=== PATIENT | female | born 1940 | race Caucasian/White ===

== ENCOUNTER 2016-08-26 13:06 | Emergency (ER) | payer MEDICARE, MEDICAID, OTHER ==
[~2016-08-26] VITALS: Ht 157.5 cm; Wt 50.0 kg
[~2016-08-26 13:06] MED LIST: APIX2.5T PO; ARIC5TAB PO; ATEN25TA PO; HUMA100I3 SQ; LANTINJ SQ; MECL25 PO; NITR0.4S SL; NYST100084 TOPICAL; PLAV75TA29 PO; ROSU40 PO; test strips
[2016-08-26 13:22] VITALS: BP 131/60; PULSE 68; RESP 14; TEMP 97.6; O2SAT 96
--- NOTE | 2016-08-26 14:11 | PD ---
HPI Chief Complaint: Fall Time Seen by Provider: 14:00 Travel History International Travel<30 days: No Contact w/Intl Traveler<30days: No Traveled to known affect area: No History of Present Illness HPI Patient is a 76-year-old female who presents emergency department for evaluation of right elbow and knee pain. Patient sustained a mechanical fall prior to arrival while walking in this hospital. That she is able to bear weight, she reports her pain as a 6 out of 10 and describes it as sore. She denies any head injury or loss of consciousness. Fall was witnessed by hospital staff. PFSH Past Medical History Hx Anticoagulant Therapy: Yes Arthritis: Yes Asthma: No Atrial Fibrillation: Yes Autoimmune Disease: No Blood Disorders: No Anxiety: No Depression: No Heart Rhythm Problems: No Cancer: No Cardiovascular Problems: Yes ([place], pacemaker ) High Cholesterol: Yes Chemotherapy: No Chest Pain: No Congestive Heart Failure: Yes COPD: Yes Cerebrovascular Accident: No Diabetes: Yes (Insulin ) Diminished Hearing: No Endocrine: Yes Gastrointestinal Disorders: No GERD: No Glaucoma: No Genitourinary: No Headaches: Yes Hepatitis: No Hiatal Hernia: No Hypertension: Yes Immune Disorder: No Implanted Vascular Access Dvce: Yes Kidney Stones: No Musculoskeletal: Yes (PAD) Neurologic: No Psychiatric: No Reproductive: No Respiratory: Yes (COPD) Integumentary: No Immunizations Current: Yes Migraines: Yes Myocardial Infarction: Yes Radiation Therapy: No Renal Failure: No Seizures: No Sickle Cell Disease: No Sleep Apnea: No Thyroid Disease: No Ulcer: No Menopausal: Yes : 5 Para: 5 Ovarian Cysts: Yes Tubal Ligation: Yes Past Surgical History Abdominal Surgery: No AICD: Yes (MEDTRONIC IMPLANTED DEVICE) Appendectomy: No Arteriovenous Shunt: No Body Medical Devices: AICD/PACER Cardiac Surgery: Yes (TRIPLE BYPASS 1998) Cholecystectomy: No Coronary Artery Bypass Graft: Yes (X 4 IN 1998) Ear Surgery: No Endocrine Surgery: No Eye Surgery: Yes (BILATERAL CATERACTS) Genitourinary Surgery: No Gynecologic Surgery: Yes (HYSTERECTOMY) Hysterectomy: Yes Insulin Pump: No Joint Replacement: No Neurologic Surgery: No Oral Surgery: Yes (TEETH EXTRACTIONS) Pacemaker: Yes (MEDTRONIC, PACER/ DEFIB) Thoracic Surgery: No Other Surgery: Yes Social History Alcohol Use: No Tobacco Use: No (QUIT 1998) Substance Use: No Allergies-Medications (Allergen,Severity, Reaction): Coded Allergies: Cortisone (Verified Allergy, Severe, Rash, 08/26/16) Cortisone cream - rash on area that is apply Penicillin (Verified Allergy, Severe, Anaphylaxis, 08/26/16) Sulfa (Verified Allergy, Severe, Hives, 08/26/16) Hives on joints Cephalosporins (Verified Allergy, Unknown, 08/26/16) Codeine (Verified Allergy, Unknown, 08/26/16) Corticosteroids (Verified Allergy, Unknown, 08/26/16) Tizanidine (Verified Adverse Reaction, Severe, Dizziness, 08/26/16) Tetracyclines (Verified Adverse Reaction, Mild, 08/26/16) vomiting *MDRO Multi-Drug Resistant Organism (Verified Adverse Reaction, Unknown, ) MRSA (leg wound) 09/2012 and (finger wound) 09/2015 E-coli ESBL (urine) - 08/2013 Uncoded Allergies: BETA LACTAMS (Allergy, Unknown, ., 09/26/15) UNK DARUNAVIR (Allergy, Unknown, ., 09/26/15) UNK OPIATES (Allergy, Unknown, ., 09/26/15) UNK AMPREVAVIR DERIVATIVES (Adverse Reaction, Unknown, ., 09/26/15) UNK Reported Meds & Prescriptions Reported Meds & Active Scripts Active Nystatin Topical 100,000 unit/gm Oint 1 Applic TOPICAL Q12HR Lantus Solostar Pen Inj (Insulin Glargine) 300 Unit/3 Ml Pen 58 Units SQ HS Meclizine Hcl25 M4 25 Mg Tab 50 Mg PO Q12HR [test strips] One Touch Ultra Blue Test 4x/day Humalog Gue016 Mg/Ml 100 Units/Ml Inj 42 Units SQ TIDAC 32U if glucose 125-325 42U if glucose >325 Reported Plavix (Clopidogrel Bisulfate) 75 Mg Tab 75 Mg PO DAILY Crestor (Rosuvastatin Calcium) 40 Mg Tab 40 Mg PO DAILY Eliquis (Apixaban) 2.5 Mg Tab 2.5 Mg PO BID Nitrostat SL (Nitroglycerin) 0.4 Mg Subl 0.4 Mg SL DIRECTED PRN ONE TABLET UNDER THE TONGUE NEEDED FOR CHEST PAIN, MAY REPEAT EVERY FIVE MINUTES FOR A TOTAL OF 3 DOSES OR CALL 911 IF NO RELIEF Aricept (Donepezil) 5 Mg Tab 5 Mg PO HS Atenolol 25 Mg Tab 25 Mg PO DAILY Review of Systems Except as stated in HPI: all other systems reviewed are Neg Musculoskeletal: Positive: Myalgias, Pain Skin: Positive Other (abrasion to right elbow) Physical Exam Narrative GENERAL: In, well-developed, alert elderly female. Resting comfortably in no acute distress. SKIN: Warm and dry. Skin avulsion to right elbow HEAD: Atraumatic. Normocephalic. EYES: Pupils equal and round. No scleral icterus. No injection or drainage. ENT: No nasal bleeding or discharge. Mucous membranes pink and moist. NECK: Trachea midline. No JVD. CARDIOVASCULAR: Regular rate and rhythm. No murmur appreciated. RESPIRATORY: No accessory muscle use. Clear to auscultation. Breath sounds equal bilaterally. GASTROINTESTINAL: Abdomen soft, non-tender, nondistended. Hepatic and splenic margins not palpable. MUSCULOSKELETAL: No obvious deformities. No clubbing. No cyanosis. No edema. 5/5 muscle strength in bilateral upper and lower extremities. No cervical, thoracic, or lumbar spinal tenderness. NEUROLOGICAL: Awake and alert. No obvious cranial nerve deficits. Motor grossly within normal limits. Normal speech. PSYCHIATRIC: Appropriate mood and affect; insight and judgment normal. Data Data Last Documented VS Vital Signs Date Time Temp Pulse Resp B/P Pulse Ox O2 Delivery O2 Flow Rate FiO2 08/26/16 13:22 97.6 68 14 131/60 96 Room Air Orders Elbow, Limited (Ap&Lat) (08/26/16 ) Knee, Complete (4vws) (08/26/16 ) Acetaminophen (Tylenol) (08/26/16 14:15) [facility] Medical Decision Making Medical Screen Exam Complete: Yes Emergency Medical Condition: Yes Interpretation(s) Vital Signs Date Time Temp Pulse Resp B/P Pulse Ox O2 Delivery O2 Flow Rate FiO2 08/26/16 13:22 97.6 68 14 131/60 96 Room Air Differential Diagnosis Contusion versus fracture versus sprain versus strain versus abrasion versus avulsion Narrative Course Patient is a 76-year-old female who presented to for evaluation after a mechanical fall that occurred just prior to arrival. Patient presented complaining of right elbow and right knee pain. She denies any head injury or loss of consciousness. Patient is neurologically intact. Fall was witnessed by hospital staff. Imaging was ordered to rule out acute fracture or dislocation. Imaging of the right elbow and right knee are negative for acute fractures or new abnormalities. Patient was given acetaminophen emergency department for pain. Wound care was provided. Patient's vital signs are stable. Patient is encouraged to rest, ice, elevate extremity. She is encouraged to maintain range of motion exercises. She is encouraged to follow- up with her primary doctor or return to emergency department for any new or worsening symptoms. Patient verbalized understanding of these instructions. Patient is stable for discharge. Diagnosis Primary Impression: Fall Qualified Code: W19.XXXA - Fall, initial encounter Additional Impressions: Elbow pain Qualified Code: M25.521 - Right elbow pain Knee pain Qualified Code: M25.561 - Acute pain of right knee Skin avulsion Referrals: Primary Care Physician Patient Instructions: Fall Prevention for Older Adults (ED), General Instructions, Knee Pain (ED) Additional Instructions: Rest, ice, elevate extremity as needed Take over the counter acetaminophen as needed and as directed for pain Follow-up with your primary doctor Return to emergency department for any new or worsening symptoms Med/Other Pt SpecificInfo: No Change to Meds Disposition: 01 DISCHARGE HOME Condition: Stable Lizbeth Garrido Aug 26, 2016 14:11
[2016-08-26] MEDS ORDERED: ACETAMINOPHEN 325 MG TAB PO ONE (14:15)
--- NOTE | 2016-08-26 15:21 | RADRPT ---
EXAM DATE/TIME: 08/26/2016 14:22 [facility] COMPARISON: KNEE RIGHT COMPLETE (4VWS), February 07, 2016, 13:51. INDICATIONS : Patient fell while following son in stretcher being transported. MEDICAL HISTORY : Chronic obstructive pulmonary disease. Emphysema. Diabetes mellitus type II. SURGICAL HISTORY : Pacemaker. CABG. ENCOUNTER: Initial ACUITY: 1 day PAIN SCORE: 6/10 LOCATION: Right Elbow FINDINGS: 2 views of the right elbow demonstrate degenerative changes with evidence of old avulsion injury of t he medial upper condyle. No acute fracture seen. No joint effusion is evident. CONCLUSION: 1. Degenerative changes and old avulsion. No acute abnormality. Joseph Obando MD on August 26, 2016 at 15:18 Board Certified Radiologist. This report was verified electronically.
--- NOTE | 2016-08-26 15:22 | RADRPT ---
EXAM DATE/TIME: 08/26/2016 14:27 [facility] COMPARISON: ELBOW RIGHT LIMITED (AP & LAT), August 26, 2016, 14:22. INDICATIONS : Patient fell while following son in stretcher being transported. MEDICAL HISTORY : Chronic obstructive pulmonary disease. Emphysema. Diabetes mellitus type II. SURGICAL HISTORY : CABG. Pacemaker. ENCOUNTER: Initial ACUITY: 1 day PAIN SCORE: 6/10 LOCATION: Right Knee. FINDINGS: The exam demonstrates a plate and multiple screws across the tibial plateau. No acute fracture is see n. There atherosclerotic changes within the distal superficial femoral and popliteal arteries. CONCLUSION: 1. Post surgical changes. No acute fracture. Joseph Obando MD on August 26, 2016 at 15:20 Board Certified Radiologist. This report was verified electronically.
[2016-09-18] MEDS ORDERED: MECL-62 PO (09:06)
[2016-09-19] MEDS ORDERED: MECL-62 PO (07:12)
[2016-10-01] MEDS ORDERED: ARIC5TAB PO (08:20)
[2016-11-12] MEDS ORDERED: HUMA100I3 SQ (08:55)
== END 2016-08-26 15:53 | disposition home or self-care (01) ==
LOC: NEPB 13:06
DX: M25.561 Pain in right knee (principal); M25.521 Pain in right elbow; E11.9 Type 2 diabetes mellitus without complications; Z79.4 Long term (current) use of insulin; Z79.01 Long term (current) use of anticoagulants; E78.00 Pure hypercholesterolemia, unspecified; W18.39XA Other fall on same level, initial encounter; Y93.01 Activity, walking, marching and hiking; Y92.238 Other place in hospital as the place of occurrence of the external cause; Y99.9 Unspecified external cause status
CPT/HCPCS: 73070; 73564; 99284

== ENCOUNTER 2016-11-19 16:36 | Inpatient (IN) | payer MEDICARE, MEDICAID ==
[~2016-11-19] VITALS: Ht 152.4 cm; Wt 61.0 kg
[2016-11-19] VITALS (9 sets, daily range): BP systolic 116–158; BP diastolic 54–88; PULSE 93–102; RESP 22–40; TEMP 99.3–101.5; O2SAT 88–100
[~2016-11-19 16:36] MED LIST changes: +MECL-62 PO; -MECL25 PO
[2016-11-19] MEDS ORDERED: SODIUM CHLORIDE 0.9% FLUSH 10 ML FLUSH IVF PRN (17:00)
--- NOTE | 2016-11-19 17:06 | PD ---
HPI . Found unresponsive Chief Complaint: Altered Mental Status Time Seen by Provider: 17:02 Travel History International Travel<30 days: No (unable to obtain) Contact w/Intl Traveler<30days: No (unable to obtain) Traveled to known affect area: No (unable to obtain) History of Present Illness HPI Patient is brought to us by EVAC being found unresponsive in her apartment. She was last seen normal yesterday. EMS reports a fingerstick blood sugar too high to register. No further history is available from this patient at this time due to her mental status. [facility] Past Medical History Medical History: Unable to Obtain Hx Anticoagulant Therapy: Yes Arthritis: Yes Asthma: No Atrial Fibrillation: Yes Autoimmune Disease: No Blood Disorders: No Anxiety: No Depression: No Heart Rhythm Problems: No Cancer: No Cardiovascular Problems: Yes ([place], pacemaker ) High Cholesterol: Yes Chemotherapy: No Chest Pain: No Congestive Heart Failure: Yes COPD: Yes Cerebrovascular Accident: No Diabetes: Yes (Insulin ) Patient Takes Glucophage: No Diminished Hearing: No Endocrine: Yes Gastrointestinal Disorders: No GERD: No Glaucoma: No Genitourinary: No Headaches: Yes Hepatitis: No Hiatal Hernia: No Hypertension: Yes Immune Disorder: No Implanted Vascular Access Dvce: Yes Kidney Stones: No Musculoskeletal: Yes (PAD) Neurologic: No Psychiatric: No Reproductive: No Respiratory: Yes (COPD) Integumentary: No Immunizations Current: Yes Migraines: Yes Myocardial Infarction: Yes Radiation Therapy: No Renal Failure: No Seizures: No Sickle Cell Disease: No Sleep Apnea: No Thyroid Disease: No Ulcer: No Menopausal: Yes : 5 Para: 5 Ovarian Cysts: Yes Tubal Ligation: Yes Past Surgical History Surgical History: Unable to Obtain Abdominal Surgery: No AICD: Yes (MEDTRONIC IMPLANTED DEVICE) Appendectomy: No Arteriovenous Shunt: No Body Medical Devices: AICD/PACER Cardiac Surgery: Yes (TRIPLE BYPASS 1998) Cholecystectomy: No Coronary Artery Bypass Graft: Yes (X 4 IN 1998) Ear Surgery: No Endocrine Surgery: No Eye Surgery: Yes (BILATERAL CATERACTS) Genitourinary Surgery: No Gynecologic Surgery: Yes (HYSTERECTOMY) Hysterectomy: Yes Insulin Pump: No Joint Replacement: No Neurologic Surgery: No Oral Surgery: Yes (TEETH EXTRACTIONS) Pacemaker: Yes (MEDTRONIC, PACER/ DEFIB) Thoracic Surgery: No Other Surgery: Yes Social History Alcohol Use: No Tobacco Use: No (QUIT 1998) Substance Use: No Allergies-Medications (Allergen,Severity, Reaction): Coded Allergies: Cortisone (Verified Allergy, Severe, Rash, 11/12/16) Cortisone cream - rash on area that is apply Penicillin (Verified Allergy, Severe, Anaphylaxis, 11/12/16) Sulfa (Verified Allergy, Severe, Hives, 11/12/16) Hives on joints Cephalosporins (Verified Allergy, Unknown, 11/12/16) Codeine (Verified Allergy, Unknown, 11/12/16) Corticosteroids (Verified Allergy, Unknown, 11/12/16) Tizanidine (Verified Adverse Reaction, Severe, Dizziness, 11/12/16) Tetracyclines (Verified Adverse Reaction, Mild, 11/12/16) vomiting *MDRO Multi-Drug Resistant Organism (Verified Adverse Reaction, Unknown, ) MRSA (leg wound) 09/2012 and (finger wound) 09/2015 E-coli ESBL (urine) - 08/2013 Uncoded Allergies: BETA LACTAMS (Allergy, Unknown, ., 09/26/15) UNK DARUNAVIR (Allergy, Unknown, ., 09/26/15) UNK OPIATES (Allergy, Unknown, ., 09/26/15) UNK AMPREVAVIR DERIVATIVES (Adverse Reaction, Unknown, ., 09/26/15) UNK Reported Meds & Prescriptions Reported Meds & Active Scripts Active Aricept (Donepezil) 5 Mg Tab 5 Mg PO HS Meclizine (Meclizine HCl) 25 Mg Tab 2 Tab PO Q12HR Nystatin Topical 100,000 unit/gm Oint 1 Applic TOPICAL Q12HR Lantus Solostar Pen Inj (Insulin Glargine) 300 Unit/3 Ml Pen 58 Units SQ HS [test strips] One Touch Ultra Blue Test 4x/day Reported Humalog Kwikpen Pen Inj (Insulin Lispro (Human) Inj) 300 Unit/3 Ml Pen 1 Units SQ TIDAC 32U if glucose 125-325 42U if glucose >325 Plavix (Clopidogrel Bisulfate) 75 Mg Tab 75 Mg PO DAILY Crestor (Rosuvastatin Calcium) 40 Mg Tab 40 Mg PO DAILY Eliquis (Apixaban) 2.5 Mg Tab 2.5 Mg PO BID Nitrostat SL (Nitroglycerin) 0.4 Mg Subl 0.4 Mg SL DIRECTED PRN ONE TABLET UNDER THE TONGUE NEEDED FOR CHEST PAIN, MAY REPEAT EVERY FIVE MINUTES FOR A TOTAL OF 3 DOSES OR CALL 911 IF NO RELIEF Atenolol 25 Mg Tab 25 Mg PO DAILY Review of Systems ROS Limitations: Altered Mental Status Physical Exam Narrative GENERAL: Patient is lying on the stretcher with her eyes open moving all 4 extremities. She smells of ketones. SKIN: Warm and dry. She has some bruising to the left buttock. No skin breakdown. Mottling of the skin of the lower extremities. HEAD: Atraumatic. Normocephalic. EYES: Pupils equal and round. Extraocular movements are intact. ENT: No nasal bleeding or discharge. Mucous membranes pink but dry. NECK: Trachea midline. Neck is supple. CARDIOVASCULAR: Regular rate and rhythm. Heart sounds are normal. RESPIRATORY: No accessory muscle use. She has deep, regular, nonlabored respirations. Lungs are clear. GASTROINTESTINAL: Abdomen soft, non-tender, nondistended. MUSCULOSKELETAL: No obvious deformities. No edema. NEUROLOGICAL: She has spontaneous eye opening. She is moaning. She is moving all fours extremities spontaneously but is not following commands. PSYCHIATRIC: Unable to assess Data Data Orders Complete Blood Count With Diff (11/19/16 16:56) Comprehensive Metabolic Panel (11/19/16 16:56) Magnesium (Mg) (11/19/16 16:56) Beta Hydroxybutyrate (Acetone) (11/19/16 16:56) Lactic Acid (11/19/16 16:56) Urinalysis - C+S If Indicated (11/19/16 16:56) Blood Culture (11/19/16 16:56) Ecg Monitoring (11/19/16 16:56) Iv Access Insert/Monitor (11/19/16 16:56) Oximetry (11/19/16 16:56) NPO (11/19/16 16:56) Sodium Chlor 0.9% 1000 Ml Inj (Ns 1000 M (11/19/16 17:26) Sodium Chloride 0.9% Flush (Ns Flush) (11/19/16 17:00) Troponin I (11/19/16 16:56) Ckmb (Isoenzyme) Profile (11/19/16 16:56) Urine Culture (11/19/16 16:58) MDM Medical Decision Making Medical Screen Exam Complete: Yes Emergency Medical Condition: Yes Interpretation(s) EKG shows a sinus rhythm. There is a lot of artifact on the EKG making it difficult to interpret. There is possibly some ST segment depression laterally. This is new compared to her most recent EKG. Differential Diagnosis Differential diagnosis of altered mental status includes but is not limited to infection, electrolyte abnormality, neurological event, intoxication Narrative Course Patient presents by EVAC with altered mental status. My #1 diagnosis at this time his DKA. Rhabdomyolysis needs to be ruled out. She will be treated with IV fluids while awaiting her workup. Her care is being endorsed to the oncoming physician at this time. Diagnosis Primary Impression: Altered mental status Qualified Code: R40.2422 - Matthew coma scale total score 9-12, at arrival to emergency department Verónica Downey MD Nov 19, 2016 17:06
[2016-11-19] MEDS ORDERED: metroNIDAZOLE 500 MG INJ 100 ML IV STA (17:20)
[2016-11-19] MEDS ORDERED: AZTREONAM INJ 2,000 MG in SODIUM CHLORIDE 0.9% INJ 100 ML IV STA (17:20)
[2016-11-19 17:21] LABS: BACTERIA, URINE RARE /hpf; BLOOD, URINE LARGE (NEG); COMMENT (UR) CULT NOT INDICATED; CULTURE IF INDICATED CULT NOT INDICATED; GLUCOSE,URINE 1000 mg/dL (NEG); KETONE, URINE 10 mg/dL (NEG); NITRITE,URINE NEG (NEG); SQUAMOUS EPITHELIAL CELL URINE <1 /hpf (0-5); URINE COLOR LIGHT-YELLOW (YELLW/STRAW)
[2016-11-19 17:24] LABS: AUTOMATED NEUTROPHIL # 13.7 TH/MM3 (1.8-7.7); BASOPHIL % 0.3 % (0.0-2.0); HEMATOCRIT 41.1 % (35.0-46.0); HEMO FLAGS DIFF FINAL; LYMPH % 5.9 % (9.0-44.0); LYMPHOCYTE # 0.9 TH/MM3 (1.0-4.8); MEAN CELL VOLUME 86.8 FL (80.0-100.0); MEAN CORPUSCULAR HEMOGLOBIN 28.1 PG (27.0-34.0); MEAN CORPUSCULAR HGB CONC 32.4 % (32.0-36.0); MONO % 6.5 % (0.0-8.0); NEUT % 87.3 % (16.0-70.0); PLATELET COUNT 199 TH/MM3 (150-450); RED BLOOD COUNT 4.74 MIL/MM3 (4.00-5.30); RED CELL DISTRIBUTION WIDTH 15.2 % (11.6-17.2); WHITE BLOOD COUNT 15.7 TH/MM3 (4.0-11.0)
[2016-11-19] MEDS ORDERED: SODIUM CHLOR 0.9% 1000 ML INJ 1,000 ML IV ONE (17:26)
[2016-11-19] MEDS ORDERED: VANCOMYCIN INJ 1,000 MG in SODIUM CHLOR 0.9% 250 ML INJ 250 ML IV ONE (17:30)
[2016-11-19] MEDS ORDERED: ACETAMINOPHEN 650 MG SUPP RECTAL ONE (17:30)
[2016-11-19 18:03] LABS: ALKALINE PHOSPHATASE 99 U/L (45-117); ALT (GPT) 23 U/L (10-53); ANION GAP 25 MEQ/L (5-15); AST (GOT) 46 U/L (15-37); BETA-HYDROXYBUTYRATE 8.17 MMOL/L (0.00-0.39); BICARBONATE 10.6 MEQ/L (21.0-32.0); BLOOD UREA NITROGEN 42 MG/DL (7-18); CHLORIDE 97 MEQ/L (98-107); GLOMERULAR FILTRATION RATE 17 ML/MIN (>89); MAGNESIUM 2.7 MG/DL (1.5-2.5); POTASSIUM 4.3 MEQ/L (3.5-5.1); SODIUM (NA) 133 MEQ/L (136-145)
--- NOTE | 2016-11-19 18:15 | RADRPT ---
EXAM DATE/TIME: 11/19/2016 17:54 [facility] COMPARISON: CT BRAIN W/O CONTRAST, February 06, 2016, 17:19. INDICATIONS : Altered mental status. Found unresponsive. RADIATION DOSE: 42.25 CTDIvol (mGy) MEDICAL HISTORY : Cardiovascular disease. Congestive heart failure. Hypertension. SURGICAL HISTORY : CABG ENCOUNTER: Initial ACUITY: 1 day PAIN SCALE: Non-responsive LOCATION: cranial TECHNIQUE: Multiple contiguous axial images were obtained of the head. Using automated exposure control and adj ustment of the mA and/or kV according to patient size, radiation dose was kept as low as reasonably a chievable to obtain optimal diagnostic quality images. FINDINGS: CEREBRUM: The ventricles are normal for age. No evidence of midline shift, mass lesion, hemorrhage or acute in farction. No extra-axial fluid collections are seen. POSTERIOR FOSSA: The cerebellum and brainstem are intact. The 4th ventricle is midline. The cerebellopontine angle i s unremarkable. EXTRACRANIAL: The visualized portion of the orbits is intact. SKULL: The calvaria is intact. No evidence of skull fracture. CONCLUSION: No acute disease. Joey Rosenthal MD on November 19, 2016 at 18:11 Board Certified Radiologist. This report was verified electronically.
[2016-11-19 18:33] LABS: CREATINE KINASE 1774 U/L (26-192)
--- NOTE | 2016-11-19 18:44 | RADRPT ---
EXAM DATE/TIME: 11/19/2016 17:54 [facility] COMPARISON: No previous studies available for comparison. INDICATIONS : Altered mental status. Found unresponsive. RADIATION DOSE: 35.83 CTDIvol (mGy) MEDICAL HISTORY : Hypertension. SURGICAL HISTORY : None. ENCOUNTER: Initial ACUITY: 1 day PAIN SCALE: Non-responsive LOCATION: Neck TECHNIQUE: Volumetric scanning of the cervical spine was performed. Multiplanar reconstructions in the sagittal, coronal and oblique axial planes were performed. Using automated exposure control and adjustment o f the mA and/or kV according to patient size, radiation dose was kept as low as reasonably achievable to obtain optimal diagnostic quality images. FINDINGS: There is motion artifact particularly at the C3 and C4 levels which limits interpretation at these le vels. There is grade I retrolisthesis of C3 in relation to C2 and C4 as well as C4 in relation to C5 . There is reversal of the normal cervical lordosis. There is no acute fracture or prevertebral sof t-tissue swelling. The bony relationship and alignment between C1 and C2 is well maintained. Mild b ilateral foraminal narrowing is noted at C5-C6, C6-C7 and to a lesser extent at C4-C5 and C3-C4. Mil d spinal stenosis is noted at C5-C6. CONCLUSION: 1. Extensive motion artifact particularly at C3 and C4 levels which limits interpretation of these l evels. 2. Grade I retrolisthesis of C3 in relation to C4 and C2 as well as C4 in relation to C5. 3. Diffuse cervical spondylosis at C5-C6, C6-C7 and to a lesser extent at C4-C5 and C3-C4. 4. No acute fracture or prevertebral soft-tissue swelling. 5. Mild spinal stenosis at C5-C6. 6. Mild bilateral foraminal narrowing at C5-C6 and C6-C7 and to a lesser extent at C4-C5 and C3-C4. 7. Reversal of the normal cervical lordosis. Joey Rosenthal MD on November 19, 2016 at 18:36 Board Certified Radiologist. This report was verified electronically.
[2016-11-19] MEDS ORDERED: SODIUM BICARBONATE 8.4% SOLN 50 MEQ/50 ML VIAL IV PRN ×2 (18:45)
[2016-11-19] MEDS ORDERED: INSULIN REGULAR (IV INFUSION) 100 UNITS in SODIUM CHLORIDE 0.9% INJ 99 ML IV SCH (18:45)
[2016-11-19] MEDS ORDERED: POTASSIUM CHLOR 20 MEQ PREMIX 100 ML IV PRN ×5 (18:45)
[2016-11-19] MEDS ORDERED: SODIUM PHOSPHATE INJ 15 MMOL in SODIUM CHLORIDE 0.9% INJ 100 ML IV PRN (18:45)
[2016-11-19] MEDS ORDERED: INSULIN HUMAN REGULAR 1,000 UNITS/10 ML VIAL IV PUSH ONE (18:45)
[2016-11-19] MEDS ORDERED: POTASSIUM CHLOR 40 MEQ PREMIX 100 ML IV PRN ×2 (18:45)
--- NOTE | 2016-11-19 18:52 | RADRPT ---
EXAM DATE/TIME: 11/19/2016 18:23 [facility] COMPARISON: No previous studies available for comparison. INDICATIONS : Possible fall, found unresponsive. MEDICAL HISTORY : Cardiovascular disease. Congestive heart failure. Hypertension. SURGICAL HISTORY : CABG. ENCOUNTER: Initial ACUITY: 1 day PAIN SCORE: Non-responsive. LOCATION: Pelvis. FINDINGS: Moderate degenerative changes are noted involving the hip joints bilaterally. There is no acute frac ture or dislocation. Degenerative changes are also noted involving the visualized portion of the low er lumbar spine. CONCLUSION: 1. Moderate degenerative changes involving the hip joints bilaterally. 2. Degenerative changes involving the lower lumbar spine. 3. No acute fracture or dislocation. Joey Rosenthal MD on November 19, 2016 at 18:45 Board Certified Radiologist. This report was verified electronically.
--- NOTE | 2016-11-19 19:07 | RADRPT ---
EXAM DATE/TIME: 11/19/2016 18:40 [facility] COMPARISON: CHEST SINGLE AP, February 06, 2016, 16:35. INDICATIONS : Fever. MEDICAL HISTORY : None. SURGICAL HISTORY : Pacemaker. CABG. ENCOUNTER: Initial ACUITY: 1 day PAIN SCORE: Non-responsive. LOCATION: Bilateral chest FINDINGS: Median sternotomy wires are noted status post cardiac surgery. A left subclavian AICD has its tip in the right ventricle. There is no pneumothorax. Scattered granulomatous changes are noted bilateral ly. There is minimal patchiness within the left lung base consistent with atelectasis and/or mild in filtrate. Clinical correlation is recommended. The right lung is clear. CONCLUSION: 1. Minimal patchiness within the left lung base consistent with atelectasis and/or mild infiltrate. Clinical correlation is recommended. Joey Rosenthal MD on November 19, 2016 at 19:03 Board Certified Radiologist. This report was verified electronically.
[2016-11-19 19:09] LABS: CKMB 18.1 NG/ML (0.5-3.6)
--- NOTE | 2016-11-19 19:33 | PD ---
Data Data Last Documented VS Vital Signs Date Time Temp Pulse Resp B/P Pulse Ox O2 Delivery O2 Flow Rate FiO2 11/19/16 18:00 100 30 143/88 95 Nasal Cannula 4 11/19/16 17:09 101.5 Orders Complete Blood Count With Diff (11/19/16 16:56) Comprehensive Metabolic Panel (11/19/16 16:56) Magnesium (Mg) (11/19/16 16:56) Beta Hydroxybutyrate (Acetone) (11/19/16 16:56) Lactic Acid (11/19/16 16:56) Urinalysis - C+S If Indicated (11/19/16 16:56) Blood Culture (11/19/16 16:56) Ecg Monitoring (11/19/16 16:56) Iv Access Insert/Monitor (11/19/16 16:56) Oximetry (11/19/16 16:56) NPO (11/19/16 16:56) Sodium Chlor 0.9% 1000 Ml Inj (Ns 1000 M (11/19/16 17:26) Sodium Chloride 0.9% Flush (Ns Flush) (11/19/16 17:00) Troponin I (11/19/16 16:56) Ckmb (Isoenzyme) Profile (11/19/16 16:56) Urine Culture (11/19/16 16:58) Vancomycin Inj (Vancomycin Inj) (11/19/16 17:30) Aztreonam Inj (Azactam Inj) (11/19/16 17:20) Metronidazole 500 Mg Inj (Flagyl 500 Mg (11/19/16 17:20) Ct Brain W/O Iv Contrast(Rout) (11/19/16 ) Ct Cerv Spine W/O Contrast (11/19/16 ) Pelvis, Ap Only (Routine) (11/19/16 ) Acetaminophen Supp (Tylenol Supp) (11/19/16 17:30) Urinary Catheter Insert/Apply (11/19/16 17:30) CKMB (11/19/16 17:00) CKMB% (11/19/16 17:00) Senior Mechanical Design Engineer / Telemetry TOSIN.Q8H (11/19/16 18:33) ^ Insert Iv (11/19/16 18:33) Diet Npo (11/19/16 Dinner) Sodium Chlor 0.9% 1000 Ml Inj (Ns 1000 M (11/19/16 18:33) Dext 5%-Nacl 0.9% 1000 Ml Inj (D5w-Ns 10 (11/19/16 18:33) Insulin Human Regular Inj (Novolin R Inj (11/19/16 18:45) Insulin Regular (Iv Infusion) (Novolin R (11/19/16 18:45) Potassium Chlor 40 Meq Premix (Kcl 40 Me (11/19/16 18:45) Potassium Chlor 40 Meq Premix (Kcl 40 Me (11/19/16 18:45) Potassium Chlor 20 Meq Premix (Kcl 20 Me (11/19/16 18:45) Potassium Chlor 20 Meq Premix (Kcl 20 Me (11/19/16 18:45) Potassium Chlor 20 Meq Premix (Kcl 20 Me (11/19/16 18:45) Potassium Chlor 20 Meq Premix (Kcl 20 Me (11/19/16 18:45) Potassium Chlor 20 Meq Premix (Kcl 20 Me (11/19/16 18:45) Potassium Chlor 20 Meq Premix (Kcl 20 Me (11/19/16 18:45) Sodium Bicarbonate 8.4% Inj (Sodium Bica (11/19/16 18:45) Sodium Bicarbonate 8.4% Inj (Sodium Bica (11/19/16 18:45) Sodium Phosphate Inj (Sodium Phosphate I (11/19/16 18:45) Hemoglobin (Hgb) A1c (11/19/16 18:33) Basic Metabolic Panel (Bmp) (11/19/16 23:33) Basic Metabolic Panel (Bmp) (11/20/16 05:33) Basic Metabolic Panel (Bmp) (11/20/16 11:33) Basic Metabolic Panel (Bmp) (11/20/16 17:33) Magnesium (Mg) (11/19/16 23:33) Magnesium (Mg) (11/20/16 05:33) Magnesium (Mg) (11/20/16 11:33) Magnesium (Mg) (11/20/16 17:33) Phosphorus (Po4) (11/19/16 23:33) Phosphorus (Po4) (11/20/16 05:33) Phosphorus (Po4) (11/20/16 11:33) Phosphorus (Po4) (11/20/16 17:33) Beta Hydroxybutyrate (Acetone) (11/20/16 05:33) Beta Hydroxybutyrate (Acetone) (11/20/16 17:33) Chest, Single Ap (11/19/16 ) Admit Order (Ed Use Only) (11/19/16 19:02) Labs Laboratory Tests Test 11/19/16 17:00 White Blood Count 15.7 TH/MM3 Red Blood Count 4.74 MIL/MM3 Hemoglobin 13.3 GM/DL Hematocrit 41.1 % Mean Corpuscular Volume 86.8 FL Mean Corpuscular Hemoglobin 28.1 PG Mean Corpuscular Hemoglobin 32.4 % Concent Red Cell Distribution Width 15.2 % Platelet Count 199 TH/MM3 Mean Platelet Volume 10.3 FL Neutrophils (%) (Auto) 87.3 % Lymphocytes (%) (Auto) 5.9 % Monocytes (%) (Auto) 6.5 % Eosinophils (%) (Auto) 0.0 % Basophils (%) (Auto) 0.3 % Neutrophils # (Auto) 13.7 TH/MM3 Lymphocytes # (Auto) 0.9 TH/MM3 Monocytes # (Auto) 1.0 TH/MM3 Eosinophils # (Auto) 0.0 TH/MM3 Basophils # (Auto) 0.0 TH/MM3 CBC Comment DIFF FINAL Differential Comment Urine Color LIGHT-YELLOW Urine Turbidity CLEAR Urine pH 6.0 Urine Specific [place] 1.022 Urine Protein 100 mg/dL Urine Glucose (UA) 1000 mg/dL Urine Ketones 10 mg/dL Urine Occult Blood LARGE Urine Nitrite NEG Urine Bilirubin NEG Urine Urobilinogen LESS THAN 2.0 MG/DL Urine Leukocyte Esterase NEG Urine RBC 1 /hpf Urine WBC 2 /hpf Urine Squamous Epithelial <1 /hpf Cells Urine Bacteria RARE /hpf Microscopic Urinalysis Comment CULT NOT INDICATED Sodium Level 133 MEQ/L Potassium Level 4.3 MEQ/L Chloride Level 97 MEQ/L Carbon Dioxide Level 10.6 MEQ/L Anion Gap 25 MEQ/L Blood Urea Nitrogen 42 MG/DL Creatinine 2.68 MG/DL Estimat Glomerular Filtration 17 ML/MIN Rate Random Glucose 957 MG/DL Lactic Acid Level 3.7 mmol/L Calcium Level 9.2 MG/DL Magnesium Level 2.7 MG/DL Total Bilirubin 1.0 MG/DL Aspartate Amino Transf 46 U/L (AST/SGOT) Alanine Aminotransferase 23 U/L (ALT/SGPT) Alkaline Phosphatase 99 U/L Total Creatine Kinase 1774 U/L Creatine Kinase MB 18.1 NG/ML Creatine Kinase MB % 1.0 % Troponin I 0.51 NG/ML Total Protein 7.6 GM/DL Albumin 3.7 GM/DL B-Hydroxybutyrate 8.17 MMOL/L [facility] Supervised Visit with VLADIMIR: No Interpretation(s) Fever, tachycardia, tachypnea, mild hypertension Leukocytosis 87% neutrophils Hyponatremia Glucose is 957 Acute kidney injury Anion gap is 25 Bicarbonate is 10 Lactic acid is 3.7 CK 1700 Troponin is 0.51 Urinalysis: Large blood with no red blood cells consistent with rhabdomyolysis Differential Diagnosis Sepsis, pneumonia, urinary tract infection, intracranial hemorrhage, DKA, rhabdomyolysis Narrative Course This is a very sick 76-year-old female who was found in her apartment unresponsive. She was seen initially by Dr. Downey and signed out to me. She was placed on a monitor and an IV was established. Labs are obtained which are consistent with sepsis, rhabdomyolysis, acute kidney injury and diabetic ketoacidosis. She was given 2 L of IV hydration by Dr. Downey. Chart review does demonstrate she has a history congestive heart failure so while she certainly needs fluids, we will proceed at a lower rate. Insulin was started and she was placed under DKA protocol. She was given vancomycin, Azactam and Flagyl due to multiple antibiotic allergies. Troponin was 0.5 and I suspect this is in the setting of acute kidney injury and demand ischemia. I hesitate to anticoagulate her at this time but the troponin should be followed. At this time I do think she is protecting her airway, I suspect her pH is quite low and intubating her would put her at more risk. Patient will be admitted to the intensive care unit for close management. Critical Care Narrative Aggregate critical care time was 50 minutes. Time to perform other separately billable procedures was not included in the critical care time. My time did not include minutes spent treating any other patients simultaneously or on activities that did not directly contribute to the patient's treatment. The services I provided to this patient were to treat and/or prevent clinically significant deterioration that could result in: Disability, I provided critical care services requiring my management, as noted below: Chart data review, documentation time, medication orders and management, vital sign assessments/reviewing monitor data, ordering and reviewing lab tests, ordering and interpreting/reviewing x-rays and diagnostic studies, care of the patient and discussion of the patient with the admitting physicians. Diagnosis Primary Impression: Altered mental status Qualified Code: R40.2422 - Matthew coma scale total score 9-12, at arrival to emergency department Additional Impressions: Sepsis Diabetic ketoacidosis Rhabdomyolysis Admitting Information Admitting Physician Requests: Admit Shivani Carvalho MD Nov 19, 2016 19:33
[2016-11-19] MEDS: SODIUM CHLOR 0.9% 1000 ML INJ 1,000 ML IV SCH ×2 (19:35→22:57)
[2016-11-19 19:42] LABS: BLOOD GAS BASE EXCESS -20.9 mmol/L (-2-2); BLOOD GAS CARBOXYHEMOGLOBIN 1.6 % (0-4); BLOOD GAS HCO3 5 mmol/L (22-26); BLOOD GAS O2 HGB SATURATION 94 % (90-100); BLOOD GAS OXYGEN CONTENT 14.8 Vol % (12.0-20.0); BLOOD GAS PCO2 12 mmHg (38-42); BLOOD GAS PO2 97 mmHg (61-120); BLOOD GAS TOTAL HGB 11.1 G/DL (12.0-16.0); TEMP CORR TO 98.6
[2016-11-19 19:43] LABS: CRITICAL VALUE YES; DRAW SITE RT BRACHIAL; LITER FLOW 4.5 L/M; NUMBER OF ARTERIAL PUNCTURES 1; OXYGEN DEVICE NASAL CANNULA; STAT YES; ULNAR PULSE PRESENT
[2016-11-19 21:35] LABS: BICARBONATE 11.8 MEQ/L (21.0-32.0); POTASSIUM 3.6 MEQ/L (3.5-5.1)
[2016-11-19] MEDS: POTASSIUM CHLOR 20 MEQ PREMIX 100 ML IV PRN (21:50)
--- NOTE | 2016-11-19 22:02 | HHI.HP ---
HPI Service Critical Care Medicine Primary Care Physician Esperanza Talamantes MD Admission Diagnosis sepsis, diabetic ketoacidosis Diagnosis: Travel History International Travel<30 Days: No (unable to obtain) Contact w/Intl Traveler <30 Da: No (unable to obtain) Traveled to Known Affected Are: No (unable to obtain) History of Present Illness 76-year-old female, [facility] resident, with past medical history of diabetes, hypertension, COPD, atrial fibrillation on chronic anticoagulation with Eliquis, coronary artery disease with prior 3 vessel CABG, ICD placement due to V tach, who is brought into [facility] emergency department after she was found down in her apartment with glucose reading "high" with AMS. Patient not able to provide history. Her neighbor says she last saw her 24 hours prior. She is in DKA, acute rhabdomyolysis, PRATIMA overlying CKD stage III, febrile with WBC 15.7, and lactic acidemia. CT brain is negative. U/a with rare bacteria. CXR with LLL infiltrate. Has multiple abx allergies and is noted to have allergies to some HIV meds??? Received aztreonam, vancomycin, flagyl, 1 L NS bolus and was started on DKA protocol in the ED. Her friend states she has been very depressed lately after the of her son 1-2 months ago. She has been taking nitroglycerin sublingual frequently. She has been admitted in the past in January 2016 for DKA when she decided to quit taking insulin. Past Family Social History Allergies: Coded Allergies: Cortisone (Verified Allergy, Severe, Rash, 11/12/16) Cortisone cream - rash on area that is apply Penicillin (Verified Allergy, Severe, Anaphylaxis, 11/12/16) Sulfa (Verified Allergy, Severe, Hives, 11/12/16) Hives on joints Cephalosporins (Verified Allergy, Unknown, 11/12/16) Codeine (Verified Allergy, Unknown, 11/12/16) Corticosteroids (Verified Allergy, Unknown, 11/12/16) Tizanidine (Verified Adverse Reaction, Severe, Dizziness, 11/12/16) Tetracyclines (Verified Adverse Reaction, Mild, 11/12/16) vomiting *MDRO Multi-Drug Resistant Organism (Verified Adverse Reaction, Unknown, ) MRSA (leg wound) 09/2012 and (finger wound) 09/2015 E-coli ESBL (urine) - 08/2013 MRSA PCR Screen POSITIVE - 11/20/2016 Uncoded Allergies: BETA LACTAMS (Allergy, Unknown, ., 09/26/15) UNK DARUNAVIR (Allergy, Unknown, ., 09/26/15) UNK OPIATES (Allergy, Unknown, ., 09/26/15) UNK AMPREVAVIR DERIVATIVES (Adverse Reaction, Unknown, ., 09/26/15) UNK Past Medical History COPD NSTEMI 2012 Vtach now s/p pacemaker ICD Systolic heart failure Atrial fibrillation on chronic anticoagulation Hypertension Peripheral arterial disease CKD stage III Dementia Past Surgical History 3 vessel CABG 1998 Cataract surgery Hysterectomy Pacemaker/ICD BTL Multiple dental extractions ORIF patella 1012 Reported Medications Eliquis 2.5 po bid Nystatin Meclizine 50 po q12 Atenolol 25 po daily Crestor 40 mg po daily Lantus 58 untis subcut qhs Aricept 5 mg po qhs Plavix 75 mg po daily Family History Unable to obtain secondary to patient's clinical condition. Social History Quit smoking in 1998 No reported EtOH or drug use Her son, Miles Dey 1-2 months ago. She had another daughter who of cancer. She has 2 others sons who she reportedly does not have contact with ( according to her friend, Leti Mcleod) Patient's friend, Leti Quiroz, states patient does not have a living will. She states " I am all she has". Patient is not . Resides at [facility]. Physical Exam Vital Signs Vital Signs Date Time Temp Pulse Resp B/P Pulse Ox O2 Delivery O2 Flow Rate FiO2 11/19/16 21:49 93 24 132/60 100 Nasal Cannula 2 11/19/16 20:01 98 31 150/70 95 Nasal Cannula 4.5 11/19/16 20:00 99.3 11/19/16 19:32 102 40 148/86 88 Nasal Cannula 4.5 11/19/16 18:00 100 30 143/88 95 Nasal Cannula 4 11/19/16 17:10 95 Nasal Cannula 4 11/19/16 17:09 101.5 102 28 158/84 95 Nasal Cannula 4 11/19/16 17:00 28 95 Nasal Cannula 4 11/19/16 16:50 101.5 102 28 158/54 95 Nasal Cannula 2 Physical Exam Temp 101.5 blood pressure 121/50 P 93 sats 100% on room air GENERAL: Thin elderly female, laying in ED [place]. SKIN: Warm and dry. There is erythematous intertriginous rash bilateral groin and umbilicus c/w michael. There is large ecchymosis over L inferior buttocks. HEAD: Atraumatic. Normocephalic EYES: Pupils equal and round, 2mm reactive. No scleral icterus. No injection or drainage. ENT: No nasal bleeding or discharge. Mucous membranes very dry. NECK: Trachea midline. Jugular veins flat. +Kernig sign. Negative Brudinski, though she does have some neck stiffness with anterior flexion. CARDIOVASCULAR: Regular rate and rhythm. 2/6 systolic murmur apex. RESPIRATORY: Tachyneic without accessory muscle use, CTAB, no w/r/r. GASTROINTESTINAL: Abdomen soft, non-tender, nondistended. Bowel sounds hypoactive : Mccord in place with dark yellow urine output. MUSCULOSKELETAL: Extremities without clubbing, cyanosis, or edema. NEUROLOGICAL: No eye opening, but resists efforts to retract eyelid. Localizes with BUE. Moves BLE to central noxious stimuli and withdraws BLE to peripheral noxious stimuli. [id number] + gag reflex. No focal weakness apparent. Laboratory Laboratory Tests Test 11/19/16 11/19/16 11/19/16 17:00 19:37 20:50 White Blood Count 15.7 Red Blood Count 4.74 Hemoglobin 13.3 Hematocrit 41.1 Mean Corpuscular Volume 86.8 Mean Corpuscular Hemoglobin 28.1 Mean Corpuscular Hemoglobin 32.4 Concent Red Cell Distribution Width 15.2 Platelet Count 199 Mean Platelet Volume 10.3 Neutrophils (%) (Auto) 87.3 Lymphocytes (%) (Auto) 5.9 Monocytes (%) (Auto) 6.5 Eosinophils (%) (Auto) 0.0 Basophils (%) (Auto) 0.3 Neutrophils # (Auto) 13.7 Lymphocytes # (Auto) 0.9 Monocytes # (Auto) 1.0 Eosinophils # (Auto) 0.0 Basophils # (Auto) 0.0 CBC Comment DIFF FINAL Differential Comment Urine Color LIGHT-YELLOW Urine Turbidity CLEAR Urine pH 6.0 Urine Specific [place] 1.022 Urine Protein 100 Urine Glucose (UA) 1000 Urine Ketones 10 Urine Occult Blood LARGE Urine Nitrite NEG Urine Bilirubin NEG Urine Urobilinogen LESS THAN 2.0 Urine Leukocyte Esterase NEG Urine RBC 1 Urine WBC 2 Urine Squamous Epithelial <1 Cells Urine Bacteria RARE Microscopic Urinalysis Comment CULT NOT INDICATED Sodium Level 133 140 Potassium Level 4.3 3.6 Chloride Level 97 109 Carbon Dioxide Level 10.6 11.8 Anion Gap 25 19 Blood Urea Nitrogen 42 44 Creatinine 2.68 2.57 Estimat Glomerular Filtration 17 18 Rate Random Glucose 957 716 Lactic Acid Level 3.7 Calcium Level 9.2 8.5 Magnesium Level 2.7 Total Bilirubin 1.0 Aspartate Amino Transf 46 (AST/SGOT) Alanine Aminotransferase 23 (ALT/SGPT) Alkaline Phosphatase 99 Total Creatine Kinase 1774 Creatine Kinase MB 18.1 Creatine Kinase MB % 1.0 Troponin I 0.51 Total Protein 7.6 Albumin 3.7 B-Hydroxybutyrate 8.17 Blood Gas Puncture Site RT BRACHIAL Blood Gas Patient Temperature 98.6 Blood Gas HCO3 5 Blood Gas Base Excess -20.9 Blood Gas Oxygen Saturation 94 Arterial Blood pH 7.26 Arterial Blood Partial 12 Pressure CO2 Arterial Blood Partial 97 Pressure O2 Arterial Blood Oxygen Content 14.8 Arterial Blood 1.6 Carboxyhemoglobin Arterial Blood Methemoglobin 1.0 Blood Gas Hemoglobin 11.1 Oxygen Delivery Device NASAL CANNULA Blood Gas Liter Flow 4.5 Date/Time Procedure Status Source Growth 11/19/16 20:20 Influenza Types A,B Antigen (RAY) - Final Complete Nasal Aspirate NEGATIVE FOR FLU A AND B ANTIGEN.... 11/19/16 17:05 Aerobic Blood Culture Received Blood Peripheral Pending 11/19/16 17:05 Anaerobic Blood Culture Received Blood Peripheral Pending Result Diagram: 11/19/16 1700 11/19/162049 Assessment and Plan Assessment and Plan NEURO: Acute toxic metabolic encephalopathy Dementia Hold Aricept 5 mg by mouth daily at bedtime for now. Hold meclizine. CT brain negative for acute abnormality 11/19/16 CT C-spine - grade I retrolithesis C3 in relation C2 and C4 and C in relation Cf. Degenerative changes Continue neurochecks. Would expect some neuro improvement as DKA resolves, but will monitor neuro status closely. RESP: COPD On RA vs 1-2 L NC. Wean as tolerated. Every 6 hours. Albuterol every 2 hours as needed CV: h/o Atrial fibrillation h/o Vtach s/p pacemaker ICD h/o CAD and prior LA Systolic heart failure NSTEMI According to friend, patient had been taking NTG for chest pain. EKG with no ST elevation. Troponins uptrending. Given ASA 300 pr. Initiating heparin drip. F/u 2DEcho Cardiology consult. (known to Dion, ICD placed by Dr. Amaya) GI: NPO. Will need swallow eval when mental status improved. FEN/RENAL: Acute kidney injury overlying CKD stage III Hypophosphatemia Hypokalemia Lactic acidemia Acute rhabdomyolysis Mccord in place, monitor i/o. Monitor I's and replace as indicated. Initial fluids 0.9 NaCl at 250 L per hour per DKA protocol. Patient does appear severely volume depleted. We'll monitor respiratory status and urine output closely ID: Leukocytosis Fever LLL community acquired vs aspiration Pneumonia Michael intertrigo Patient has difficult exam as she does have some decreased neck and leg mobility and it is unclear if this is due to age/cervical DJD, etc versus meningeal signs. Must defer LP as patient has been anticoagulated on eliquis and plavix. Empirically treated with meropenem (history of PCN and cephalosporin allergy) and vancomycin. ID consulted. Sent influenza screen, negative F/u blood and urine cultures. Nystatin apply affected area HEME: Monitor CBC ENDO: DKA Insulin drip and serial BMP, magnesium, phos per protocol. Will transition to subcutaneous insulin when she is appropriate for po intake and anion gap is closed. PROPH: Heparin drip provides DVT prophylaxis. Protonix 40 mg IV daily ACCESS: PIV providing adequate access at this time. Updated her contact, Leti Quiroz, who is a friend. She states she is not legal healthcare surrogate because "she never did fill out the paperwork" but states she is "all she [Jazmyn Palomo] has". She states she does not have a living will, is not . Her son Miles Dey is recently . Daughter . Two sons are not in contact. FULL CODE Level 3 H and P Monik Ervin MD Nov 19, 2016 22:02
[2016-11-19] MEDS ORDERED: Vancomycin Consult Pharmacy 1 EA OTHER SCH (22:30)
[2016-11-19] MEDS ORDERED: ASP: Documented allergy to Penicillins or Cephalosporins PRN (22:45)
[2016-11-19] MEDS ORDERED: MISCELLANEOUS PHARMACY INFORMATION XX PRN (22:45)
[2016-11-19] MEDS: MEROPENEM INJ 1,000 MG in SODIUM CHLORIDE 0.9% INJ 100 ML IV SCH (22:58)
[2016-11-19 23:06] LABS: APTT (PATIENT) 23.5 SEC (24.3-30.1); PROTHROMBIN TIME - PATIENT 11.5 SEC (9.8-11.6)
[2016-11-20] VITALS (16 sets, daily range): BP systolic 99–156; BP diastolic 55–67; PULSE 71–138; RESP 17–26; TEMP 97.2–99; O2SAT 92–100
[2016-11-20] MEDS: POTASSIUM CHLOR 20 MEQ PREMIX 100 ML IV PRN (00:18)
[2016-11-20 00:38] LABS: ANION GAP 14 MEQ/L (5-15); BICARBONATE 15.9 MEQ/L (21.0-32.0); BLOOD UREA NITROGEN 42 MG/DL (7-18); CHLORIDE 115 MEQ/L (98-107); GLOMERULAR FILTRATION RATE 18 ML/MIN (>89); MAGNESIUM 2.3 MG/DL (1.5-2.5); POTASSIUM 3.4 MEQ/L (3.5-5.1); SODIUM (NA) 145 MEQ/L (136-145)
[2016-11-20 00:40] LABS: LACTIC ACID GHOST NOT REPORTABLE
[2016-11-20] MEDS ORDERED: ASPIRIN 300 MG SUPP RECTAL ONE (01:45)
[2016-11-20 03:35] LABS: CKMB 48.4 NG/ML (0.5-3.6)
[2016-11-20] MEDS ORDERED: ONDANSETRON HCL 4 MG/2 ML VIAL IV PRN (04:15)
[2016-11-20] MEDS ORDERED: MISCELLANEOUS NURSING INFORMATION XX SCH (04:15)
[2016-11-20] MEDS ORDERED: CHLORHEXIDINE GLUCONATE 2 % 1 PACK (2 CLOTHS) TOP PRN (04:15)
[2016-11-20] MEDS ORDERED: POTASSIUM PHOSPHATE INJ 30 MMOL in SODIUM CHLOR 0.9% 250 ML INJ 250 ML IV ONE (04:30)
[2016-11-20] MEDS: DEXT 5%-NACL 0.9% 1000 ML INJ 1,000 ML IV SCH ×2 (04:33→06:54)
[2016-11-20 05:51] LABS: AUTOMATED NEUTROPHIL # 10.3 TH/MM3 (1.8-7.7); BASOPHIL % 0.1 % (0.0-2.0); HEMATOCRIT 33.6 % (35.0-46.0); HEMO FLAGS DIFF FINAL; LYMPH % 10.6 % (9.0-44.0); LYMPHOCYTE # 1.3 TH/MM3 (1.0-4.8); MEAN CELL VOLUME 80.6 FL (80.0-100.0); MEAN CORPUSCULAR HEMOGLOBIN 27.3 PG (27.0-34.0); MEAN CORPUSCULAR HGB CONC 33.9 % (32.0-36.0); MONO % 7.7 % (0.0-8.0); NEUT % 81.6 % (16.0-70.0); PLATELET COUNT 160 TH/MM3 (150-450); RED BLOOD COUNT 4.17 MIL/MM3 (4.00-5.30); RED CELL DISTRIBUTION WIDTH 14.7 % (11.6-17.2); WHITE BLOOD COUNT 12.6 TH/MM3 (4.0-11.0)
[2016-11-20] MEDS: SODIUM CHLOR 0.9% 1000 ML INJ 1,000 ML IV SCH ×3 (06:33→20:45)
[2016-11-20 06:52] LABS: ALKALINE PHOSPHATASE 72 U/L (45-117); ALT (GPT) 46 U/L (10-53); ANION GAP 10 MEQ/L (5-15); AST (GOT) 195 U/L (15-37); BETA-HYDROXYBUTYRATE 0.07 MMOL/L (0.00-0.39); BICARBONATE 17.8 MEQ/L (21.0-32.0); BLOOD UREA NITROGEN 44 MG/DL (7-18); CHLORIDE 123 MEQ/L (98-107); CREATINE KINASE 6901 U/L (26-192); GLOMERULAR FILTRATION RATE 18 ML/MIN (>89); MAGNESIUM 2.2 MG/DL (1.5-2.5); POTASSIUM 3.2 MEQ/L (3.5-5.1); SODIUM (NA) 151 MEQ/L (136-145); TOTAL BILIRUBIN ADULT 0.6 MG/DL (0.2-1.0)
[2016-11-20] MEDS ORDERED: HEPARIN-D5W INJ 250 ML IV SCH (07:00)
[2016-11-20] MEDS ORDERED: DEXTROSE 50% IN WATER 50 ML SYRINGE ONE (07:01)
[2016-11-20 07:19] LABS: CKMB 49.7 NG/ML (0.5-3.6)
[2016-11-20 07:53] LABS: HEMATOCRIT 34.2 % (35.0-46.0); MEAN CELL VOLUME 81.4 FL (80.0-100.0); MEAN CORPUSCULAR HEMOGLOBIN 26.8 PG (27.0-34.0); PLATELET COUNT 160 TH/MM3 (150-450); REVIEW FLAG FINAL; WHITE BLOOD COUNT 13.7 TH/MM3 (4.0-11.0)
[2016-11-20 08:00] LABS: APTT (PATIENT) 22.4 SEC (24.3-30.1); PROTHROMBIN TIME - PATIENT 11.3 SEC (9.8-11.6)
[2016-11-20] MEDS: MEDIUM DOSE INSULIN NOVOLOG SUPPLEMENTAL SCALE SQ SCH ×4 (08:00→20:17)
[2016-11-20] MEDS ORDERED: GLUCAGON 1 MG/ML VIAL OTHER PRN ×2 (08:45→17:00)
[2016-11-20] MEDS ORDERED: PLEASE DISCONTINUE PREVIOUS SUPPLEMENTAL SCALE INSULIN ORDERS ONE (08:45)
[2016-11-20] MEDS ORDERED: DEXTROSE 50% IN WATER 50 ML VIAL(D50) IV PUSH PRN ×2 (08:45→17:00)
[2016-11-20] MEDS: PANTOPRAZOLE SODIUM 40 MG VIAL IV SCH (08:57)
[2016-11-20] MEDS: NYSTATIN 100,000 UNIT/GM CREAM 15 GM TOPICAL SCH ×2 (08:58→20:16)
[2016-11-20 12:04] LABS: BICARBONATE 14.9 MEQ/L (21.0-32.0); MAGNESIUM 2.1 MG/DL (1.5-2.5); POTASSIUM 4.1 MEQ/L (3.5-5.1)
--- NOTE | 2016-11-20 12:15 | EC ---
Study Study Date:11/20/2016 STUDY CONCLUSIONS SUMMARY - Left ventricle: The cavity size was normal. Wall thickness was normal. Systolic function was mildly reduced. The estimated ejection fraction was in the range of 45% to 50%. Wall motion was normal; there were no regional wall motion abnormalities. - Aortic valve: Valve area: 1.69cm^2(VTI). Valve area: 1.34cm^2 (Vmax). - Mitral valve: Mild to moderate regurgitation. Valve area by pressure half-time: 2.14cm^2. Valve area by continuity equation (using LVOT flow): 3.01cm^2. - Left atrium: The atrium was severely dilated. - Pulmonary arteries: PA peak pressure: 64mm Hg (S). If LV function is below 40, please consider prescribing an ACEI or ARB or document rationale for non-use. PROCEDURE DATA STUDY STATUS: Elective. Procedure: Transthoracic echocardiography. Image quality was good. Scanning was performed from the parasternal, apical, and subcostal acoustic windows. Study completion: The patient tolerated the procedure well. Transthoracic echocardiography. M-mode, complete 2D, complete spectral Doppler, and color Doppler. Patient status: Inpatient. CARDIAC ANATOMY LEFT VENTRICLE: The cavity size was normal. Wall thickness was normal. Systolic function was mildly reduced. The estimated ejection fraction was in the range of 45% to 50%. Wall motion was normal; there were no regional wall motion abnormalities. AORTIC VALVE: Trileaflet; normal thickness leaflets. Doppler: Transvalvular velocity was within the normal range. There was no stenosis. No regurgitation. Valve area: 1.69cm^2(VTI). Valve area: 1.34cm^2 (Vmax). Mean gradient: 6mm Hg (S). Peak gradient: 13mm Hg (S). AORTA: Aortic root: The aortic root was normal in size. MITRAL VALVE: Moderately calcified leaflets, . Doppler: Transvalvular velocity was within the normal range. There was no evidence for stenosis. Mild to moderate regurgitation. Valve area by pressure half-time: 2.14cm^2. Valve area by continuity equation (using LVOT flow): 3.01cm^2. Mean gradient: 2mm Hg (D). Peak gradient: 7mm Hg (D). LEFT ATRIUM: The atrium was severely dilated. RIGHT VENTRICLE: The cavity size was normal. Wall thickness was normal. PULMONIC VALVE: Doppler: Transvalvular velocity was within the normal range. There was no evidence for stenosis. No regurgitation. TRICUSPID VALVE: Structurally normal valve. Doppler: Transvalvular velocity was within the normal range. No regurgitation. PULMONARY ARTERY: The main pulmonary artery was normal-sized. Systolic pressure was within the normal range. RIGHT ATRIUM: The atrium was normal in size. PERICARDIUM: There was no pericardial effusion. SYSTEMIC VEINS: Inferior vena cava: The vessel was normal in size. BASIC MEASUREMENTS ADULT Normal Left ventricle LV internal dimension, ED, chordal level, *42.9 mm 43-52 PLAX LV internal dimension, ES, chordal level, 33.7 mm 23-38 PLAX Fractional shortening, chordal level, PLAX *21 % >29 LV posterior wall thickness, ED 12.2 mm IVS/LVPW ratio, ED 1.02 <1.3 Ventricular septum Septal thickness, ED 12.5 mm Aortic valve Leaflet separation *13 mm 15-26 Right ventricle RV internal dimension, ED, PLAX *16.3 mm 19-38 BASIC MEASUREMENTS ADULT Normal Aortic valve Leaflet separation *13 mm 15-26 Aorta Root diameter, ED 30 mm 20-37 Left atrium Anterior-posterior dimension, ES 40 mm 19-40 LA/aortic root ratio 1.33 DOPPLER MEASUREMENTS ADULT Normal Main pulmonary artery Pressure, S *64 mm Hg =30 Aortic valve Peak velocity, S 182 cm/s Mean velocity, S 115 cm/s VTI, S 20.5 cm Mean gradient, S 6 mm Hg Peak gradient, S 13 mm Hg Valve area, VTI 1.69 cm^2 Valve area, Vmax 1.34 cm^2 Regurgitant velocity, ED 370 cm/s Regurgitant deceleration 1790 cm/s^2 Regurgitant pressure half-time 606 ms Regurgitant gradient, ED 55 mm Hg Mitral valve Peak E-wave velocity 75 cm/s Peak A-wave velocity 109 cm/s Mean velocity, D 62.2 cm/s Pressure half-time 103 ms Mean gradient, D 2 mm Hg Peak gradient, D 7 mm Hg Peak E/A ratio 0.7 Valve area, pressure half-time 2.14 cm^2 Valve area, LVOT continuity 3.01 cm^2 Tricuspid valve Regurgitant peak velocity 368 cm/s Peak RV-RA gradient, S 54 mm Hg Maximal regurgitant velocity 368 cm/s Systemic veins Estimated CVP 10 mm Hg Right ventricle RV pressure, S *64 mm Hg <30 LEGEND: Mean values are shown as u=mean value. Asterisk (*) sharma values outside specified normal range. Prepared and signed by Leo Santana [id number]
[2016-11-20] MEDS: MEROPENEM INJ 1,000 MG in SODIUM CHLORIDE 0.9% INJ 100 ML IV SCH (12:23)
--- NOTE | 2016-11-20 13:09 | EKG ---
Date Performed: 11/19/2016 Time Performed: 16:54:30 PTAGE: 76 years EKG: SINUS TACHYCARDIA ARM LEADS REVERSED ABNORMAL RHYTHM ECG No prior tracing DOCTOR: Milton Duarte Interpretating Date/Time 11/20/2016 13:07:51
--- NOTE | 2016-11-20 13:20 | PD.CONS ---
HPI Service Cardiology physicians Consult Requested By Dr. Ervin Reason for Consult NSTEMI Primary Care Physician Esperanza Talamantes MD History of Present Illness The patient is a 76 year old female known to our practice last evaluated 2015 with a cardiac history of ASHD with negative cardiac PET 2014, atrial flutter s/p ablation on Eliquis, SVT s/p ICD with last device check 05/2016, mild to moderate carotid stenosis, HTN, HLD, and IDDM. The patient was brought to the hospital after being found down with last witnessed conscious state 24 hrs prior. Work up reveals DKA with associated electrolyte abnormalities, rhabdomyolysis, acute on chronic CKD, leukocytosis, and lactic acidosis. Troponin is elevated and is trending down. EKG shows some flattening of Tw[place] in lateral leads. She is unable to answer questions. The patient is lethargic. She opens her eyes and groans to loud voice and follows some commands. No evidence of trauma. Review of Systems ROS Limitations: Clinical Condition, Altered Mental Status Past Family Social History Allergies: Coded Allergies: Cortisone (Verified Allergy, Severe, Rash, 11/12/16) Cortisone cream - rash on area that is apply Penicillin (Verified Allergy, Severe, Anaphylaxis, 11/12/16) Sulfa (Verified Allergy, Severe, Hives, 11/12/16) Hives on joints Cephalosporins (Verified Allergy, Unknown, 11/12/16) Codeine (Verified Allergy, Unknown, 11/12/16) Corticosteroids (Verified Allergy, Unknown, 11/12/16) Tizanidine (Verified Adverse Reaction, Severe, Dizziness, 11/12/16) Tetracyclines (Verified Adverse Reaction, Mild, 11/12/16) vomiting *MDRO Multi-Drug Resistant Organism (Verified Adverse Reaction, Unknown, ) MRSA (leg wound) 09/2012 and (finger wound) 09/2015 E-coli ESBL (urine) - 08/2013 MRSA PCR Screen POSITIVE - 11/20/2016 Uncoded Allergies: BETA LACTAMS (Allergy, Unknown, ., 09/26/15) UNK DARUNAVIR (Allergy, Unknown, ., 09/26/15) UNK OPIATES (Allergy, Unknown, ., 09/26/15) UNK AMPREVAVIR DERIVATIVES (Adverse Reaction, Unknown, ., 09/26/15) UNK Past Medical History See HPI Past Surgical History Atrial flutter ablation 09/2013 Cardioversion 2012 ICD, single chamber 2012 CABG 1998 Reported Medications Reported Meds & Active Scripts Active Aricept (Donepezil) 5 Mg Tab 5 Mg PO HS Meclizine (Meclizine HCl) 25 Mg Tab 2 Tab PO Q12HR Nystatin Topical 100,000 unit/gm Oint 1 Applic TOPICAL Q12HR Lantus Solostar Pen Inj (Insulin Glargine) 300 Unit/3 Ml Pen 58 Units SQ HS [test strips] One Touch Ultra Blue Test 4x/day Reported Humalog Kwikpen Pen Inj (Insulin Lispro (Human) Inj) 300 Unit/3 Ml Pen 1 Units SQ TIDAC 32U if glucose 125-325 42U if glucose >325 Plavix (Clopidogrel Bisulfate) 75 Mg Tab 75 Mg PO DAILY Crestor (Rosuvastatin Calcium) 40 Mg Tab 40 Mg PO DAILY Eliquis (Apixaban) 2.5 Mg Tab 2.5 Mg PO BID Nitrostat SL (Nitroglycerin) 0.4 Mg Subl 0.4 Mg SL DIRECTED PRN ONE TABLET UNDER THE TONGUE NEEDED FOR CHEST PAIN, MAY REPEAT EVERY FIVE MINUTES FOR A TOTAL OF 3 DOSES OR CALL 911 IF NO RELIEF Atenolol 25 Mg Tab 25 Mg PO DAILY Active Ordered Medications Current Medications Medications (Trade) Dose Ordered Sig/Francesca Route Start Time Stop Time Status Last Admin Sodium Chloride 2 ml 2 ml UNSCH PRN IVF 11/19/16 17:00 11/19/16 18:58 Sodium Chloride 1,000 ml @ 250 mls/hr Q4H IV 11/19/16 18:33 11/20/16 06:33 Dextrose/Sodium Chloride 1,000 ml @ 200 mls/hr Q5H IV 11/19/16 18:33 11/20/16 04:33 Potassium Chloride 100 ml @ 100 mls/hr Q1H PRN IV 11/19/16 18:45 Potassium Chloride 100 ml @ 50 mls/hr Q2H PRN IV 11/19/16 18:45 Potassium Chloride 100 ml @ 100 mls/hr Q1H PRN IV 11/19/16 18:45 Potassium Chloride 100 ml @ 100 mls/hr Q1H PRN IV 11/19/16 18:45 Potassium Chloride 100 ml @ 50 mls/hr Q2H PRN IV 11/19/16 18:45 Potassium Chloride 100 ml @ 50 mls/hr Q2H PRN IV 11/19/16 18:45 Potassium Chloride 100 ml @ 50 mls/hr Q2H PRN IV 11/19/16 18:45 11/20/16 00:18 (KCl 20 Meq Premix Inj) 100 ml @ 50 mls/hr Q2H PRN IV 11/19/16 18:45 (Sodium Bicarbonate 8.4% Inj) 100 meq UNSCH PRN IV 11/19/16 18:45 Sodium Bicarbonate 50 meq 50 meq UNSCH PRN IV 11/19/16 18:45 Sodium Phosphate 15 mmol/Sodium Chloride 105 ml @ 25 mls/hr UNSCH PRN IV 11/19/16 18:45 Pharmacy Profile Note 0 ml @ 0 mls/hr UNSCH OTHER 11/19/16 22:30 (Merrem Inj/NS Inj) 100 ml @ 200 mls/hr Q12H IV 11/20/16 00:00 11/20/16 12:23 (Protonix Inj) 40 mg DAILY IV 11/20/16 09:00 11/20/16 08:57 (Zofran Inj) 4 mg Q6H PRN IV 11/20/16 04:15 Miscellaneous Information 1 Q361D XX 11/20/16 04:15 (Chlorhexidine 2% Cloth) 3 pack Taper DAILY@04 TOP 11/21/16 04:00 11/17/17 03:59 (Chlorhexidine 2% Cloth) 3 pack UNSCH PRN TOP 11/20/16 04:15 Nystatin 1 applic 1 applic Q12HR TOPICAL 11/20/16 09:00 11/20/16 08:58 (Heparin-D5W Inj) 250 ml @ 0 mls/hr TITRATE IV 11/20/16 07:00 11/20/16 08:47 (D50w (Vial) Inj) 25 ml UNSCH PRN IV PUSH 11/20/16 08:45 (Glucagon Inj) 1 mg UNSCH PRN OTHER 11/20/16 08:45 (NovoLOG SUPPLEMENTAL SCALE) 1 Q4H SQ 11/20/16 08:00 11/20/16 12:00 Family History non contributory Social History unknown Physical Exam Vital Signs Vital Signs Date Time Temp Pulse Resp B/P Pulse Ox O2 Delivery O2 Flow Rate FiO2 11/20/16 12:00 74 11/20/16 10:00 79 11/20/16 08:36 99 Nasal Cannula 2.00 11/20/16 08:00 75 11/20/16 06:00 78 11/20/16 04:00 97.2 77 26 124/59 100 11/20/16 02:45 81 11/20/16 00:35 99.0 90 20 141/63 97 Room Air 11/19/16 23:21 95 22 116/74 98 Room Air 11/19/16 21:49 93 24 132/60 100 Nasal Cannula 2 11/19/16 20:01 98 31 150/70 95 Nasal Cannula 4.5 11/19/16 20:00 99.3 11/19/16 19:32 102 40 148/86 88 Nasal Cannula 4.5 11/19/16 18:00 100 30 143/88 95 Nasal Cannula 4 11/19/16 17:10 95 Nasal Cannula 4 11/19/16 17:09 101.5 102 28 158/84 95 Nasal Cannula 4 11/19/16 17:00 28 95 Nasal Cannula 4 11/19/16 16:50 101.5 102 28 158/54 95 Nasal Cannula 2 Physical Exam GENERAL: lethargic elderly female in ICU SKIN: Warm and dry. HEAD: Atraumatic. Normocephalic. EYES: Pupils equal and round. No scleral icterus. No injection or drainage. ENT: No nasal bleeding or discharge. Mucous membranes pink and moist. NECK: Trachea midline. CARDIOVASCULAR: Regular rate and rhythm. RESPIRATORY: No accessory muscle use. Nasal cannula GASTROINTESTINAL: Abdomen soft, decreased bowel sounds, winces to lower abdominal palpation MUSCULOSKELETAL: Extremities without clubbing, cyanosis, or edema. No obvious deformities. NEUROLOGICAL: lethargic, opens eye and groans to loud voice, follows some commands. Laboratory Laboratory Tests Test 11/19/16 11/19/16 11/19/16 11/19/16 17:00 19:37 20:50 22:30 White Blood Count 15.7 Red Blood Count 4.74 Hemoglobin 13.3 Hematocrit 41.1 Mean Corpuscular Volume 86.8 Mean Corpuscular Hemoglobin 28.1 Mean Corpuscular Hemoglobin 32.4 Concent Red Cell Distribution Width 15.2 Platelet Count 199 Mean Platelet Volume 10.3 Neutrophils (%) (Auto) 87.3 Lymphocytes (%) (Auto) 5.9 Monocytes (%) (Auto) 6.5 Eosinophils (%) (Auto) 0.0 Basophils (%) (Auto) 0.3 Neutrophils # (Auto) 13.7 Lymphocytes # (Auto) 0.9 Monocytes # (Auto) 1.0 Eosinophils # (Auto) 0.0 Basophils # (Auto) 0.0 CBC Comment DIFF FINAL Differential Comment Urine Color LIGHT-YELLOW Urine Turbidity CLEAR Urine pH 6.0 Urine Specific [place] 1.022 Urine Protein 100 Urine Glucose (UA) 1000 Urine Ketones 10 Urine Occult Blood LARGE Urine Nitrite NEG Urine Bilirubin NEG Urine Urobilinogen LESS THAN 2.0 Urine Leukocyte Esterase NEG Urine RBC 1 Urine WBC 2 Urine Squamous Epithelial <1 Cells Urine Bacteria RARE Microscopic Urinalysis Comment CULT NOT INDICATED Sodium Level 133 140 Potassium Level 4.3 3.6 Chloride Level 97 109 Carbon Dioxide Level 10.6 11.8 Anion Gap 25 19 Blood Urea Nitrogen 42 44 Creatinine 2.68 2.57 Estimat Glomerular Filtration 17 18 Rate Random Glucose 957 716 Lactic Acid Level 3.7 2.2 Calcium Level 9.2 8.5 Magnesium Level 2.7 Total Bilirubin 1.0 Aspartate Amino Transf 46 (AST/SGOT) Alanine Aminotransferase 23 (ALT/SGPT) Alkaline Phosphatase 99 Total Creatine Kinase 1774 Creatine Kinase MB 18.1 Creatine Kinase MB % 1.0 Troponin I 0.51 Total Protein 7.6 Albumin 3.7 B-Hydroxybutyrate 8.17 Blood Gas Puncture Site RT BRACHIAL Blood Gas Patient Temperature 98.6 Blood Gas HCO3 5 Blood Gas Base Excess -20.9 Blood Gas Oxygen Saturation 94 Arterial Blood pH 7.26 Arterial Blood Partial 12 Pressure CO2 Arterial Blood Partial 97 Pressure O2 Arterial Blood Oxygen Content 14.8 Arterial Blood 1.6 Carboxyhemoglobin Arterial Blood Methemoglobin 1.0 Blood Gas Hemoglobin 11.1 Oxygen Delivery Device NASAL CANNULA Blood Gas Liter Flow 4.5 Prothrombin Time 11.5 Prothromb Time International 1.0 Ratio Activated Partial 23.5 Thromboplast Time Test 11/19/16 11/20/16 11/20/16 11/20/16 22:45 01:20 02:00 02:45 Troponin I 3.54 Sodium Level 145 Potassium Level 3.4 Chloride Level 115 Carbon Dioxide Level 15.9 Anion Gap 14 Blood Urea Nitrogen 42 Creatinine 2.54 Estimat Glomerular Filtration 18 Rate Random Glucose 493 Calcium Level 8.4 Phosphorus Level 1.1 Magnesium Level 2.3 Lactic Acid Level 3.0 Total Creatine Kinase 6385 Creatine Kinase MB 48.4 Creatine Kinase MB % 0.8 Nasal Screen MRSA (PCR) POSITIVE Test 11/20/16 11/20/16 11/20/16 11/20/16 05:29 07:28 10:02 11:36 White Blood Count 12.6 13.7 Red Blood Count 4.17 4.20 Hemoglobin 11.4 11.3 Hematocrit 33.6 34.2 Mean Corpuscular Volume 80.6 81.4 Mean Corpuscular Hemoglobin 27.3 26.8 Mean Corpuscular Hemoglobin 33.9 33.0 Concent Red Cell Distribution Width 14.7 15.0 Platelet Count 160 160 Mean Platelet Volume 8.4 8.7 Neutrophils (%) (Auto) 81.6 Lymphocytes (%) (Auto) 10.6 Monocytes (%) (Auto) 7.7 Eosinophils (%) (Auto) 0.0 Basophils (%) (Auto) 0.1 Neutrophils # (Auto) 10.3 Lymphocytes # (Auto) 1.3 Monocytes # (Auto) 1.0 Eosinophils # (Auto) 0.0 Basophils # (Auto) 0.0 CBC Comment DIFF FINAL Differential Comment Sodium Level 151 148 Potassium Level 3.2 4.1 Chloride Level 123 123 Carbon Dioxide Level 17.8 14.9 Anion Gap 10 10 Blood Urea Nitrogen 44 45 Creatinine 2.56 2.56 Estimat Glomerular Filtration 18 18 Rate Random Glucose 55 261 Lactic Acid Level 2.0 1.6 Calcium Level 8.7 8.2 Phosphorus Level 1.1 2.8 Magnesium Level 2.2 2.1 Total Bilirubin 0.6 Aspartate Amino Transf 195 (AST/SGOT) Alanine Aminotransferase 46 (ALT/SGPT) Alkaline Phosphatase 72 Total Creatine Kinase 6901 Creatine Kinase MB 49.7 Creatine Kinase MB % 0.7 Troponin I 7.81 5.58 Total Protein 6.2 Albumin 3.0 B-Hydroxybutyrate 0.07 Prothrombin Time 11.3 Prothromb Time International 1.0 Ratio Activated Partial 22.4 Thromboplast Time Date/Time Procedure Status Source Growth 11/19/16 20:20 Influenza Types A,B Antigen (RAY) - Final Complete Nasal Aspirate NEGATIVE FOR FLU A AND B ANTIGEN.... 11/19/16 17:05 Aerobic Blood Culture - Preliminary Resulted Blood Peripheral NO GROWTH IN 1 DAY 11/19/16 17:05 Anaerobic Blood Culture - Preliminary Resulted Blood Peripheral NO GROWTH IN 1 DAY 11/19/16 17:00 Urine Culture Received Urine Catheterized Urine Pending Result Diagram: 11/20/16 0728 11/20/16 1136 Imaging Last 72 hours Impressions Pelvis X-Ray 11/19/16 0000 Signed Impressions: Service Date/Time: Saturday, November 19, 2016 18:23 - CONCLUSION: 1. Moderate degenerative changes involving the hip joints bilaterally. 2. Degenerative changes involving the lower lumbar spine. 3. No acute fracture or dislocation. Joey Rosenthal MD Head CT 11/19/16 0000 Signed Impressions: Service Date/Time: Saturday, November 19, 2016 17:54 - CONCLUSION: No acute disease. Joey Rosenthal MD Chest X-Ray 11/19/16 0000 Signed Impressions: Service Date/Time: Saturday, November 19, 2016 18:40 - CONCLUSION: 1. Minimal patchiness within the left lung base consistent with atelectasis and/or mild infiltrate. Clinical correlation is recommended. Joey Rosenthal MD Cervical Spine CT 11/19/16 0000 Signed Impressions: Service Date/Time: Saturday, November 19, 2016 17:54 - CONCLUSION: 1. Extensive motion artifact particularly at C3 and C4 levels which limits interpretation of these levels. 2. Grade I retrolisthesis of C3 in relation to C4 and C2 as well as C4 in relation to C5. 3. Diffuse cervical spondylosis at C5-C6, C6- C7 and to a lesser extent at C4-C5 and C3-C4. 4. No acute fracture or prevertebral soft-tissue swelling. 5. Mild spinal stenosis at C5-C6. 6. Mild bilateral foraminal narrowing at C5-C6 and C6-C7 and to a lesser extent at C4- C5 and C3-C4. 7. Reversal of the normal cervical lordosis. Joey Rosenthal MD Assessment and Plan Assessment and Plan ASSESSMENT Elevated troponin and T-wave flattening in a semi-conscious elderly female with known history of ASHD with last negative cardiac PET 2014.. Per the hospital records, the patient has been taking nitroglycerin SL recently. AMS, found down. Work up reveals leukocytosis, lactic acidosis, DKA and rhabdomyolysis. Etiology of cause is not completely clear. Acute on chronic CKD due to above Hx atrial flutter s/p ablation. Currently NSR on telemetry. Hx SVT s/p ICD. last device check 05/2016 HTN HLD Mild to moderate carotid stenosis PLAN Will continue Heparin for now pending clinical course. Will have device interrogated to evaluate for cardiac cause The patient is not a candidate for cardiac cath at this time. Pending clinical course, will consider inpatient stress test to exclude new ischemia. Prognosis is guarded. Patient seen and evaluated by Dr Ashley. Mallory Holley Nov 20, 2016 13:20
--- NOTE | 2016-11-20 13:24 | EKG ---
Date Performed: 11/20/2016 Time Performed: 01:57:59 PTAGE: 76 years EKG: Sinus rhythm POSSIBLE LEFT ATRIAL ENLARGEMENT NONSPECIFIC ST & T-WAVE ABNORMALITY BORDERLINE ECG PREVIOUS TRACING : 11/19/2016 21.06 Compared to prior tracing no significant change DOCTOR: Milton Duarte Interpretating Date/Time 11/20/2016 13:22:03
--- NOTE | 2016-11-20 13:25 | EKG ---
Date Performed: 11/19/2016 Time Performed: 18:54:01 PTAGE: 76 years EKG: Sinus rhythm MODERATE INTRAVENTRICULAR CONDUCTION DELAY MODERATE ST DEPRESSION ABNORMAL ECG INTERPRETATION BASED ON A DEFAULT AGE OF 40 YEARS Compared to prior tracing no significant change DOCTOR: Milton Duarte Interpretating Date/Time 11/20/2016 13:22:25
--- NOTE | 2016-11-20 13:25 | EKG ---
Date Performed: 11/19/2016 Time Performed: 21:06:20 PTAGE: 76 years EKG: Sinus rhythm LEFT ATRIAL ENLARGEMENT NONSPECIFIC ST & T-WAVE ABNORMALITY ABNORMAL ECG PREVIOUS TRACING : 11/19/2016 18.54 Compared to prior tracing no significant change DOCTOR: Milton Duarte Interpretating Date/Time 11/20/2016 13:22:11
--- NOTE | 2016-11-20 13:30 | HHI.CCPN ---
Subjective Remarks/Hospital Course 76-year-old female, [facility] resident, with past medical history of diabetes, hypertension, COPD, atrial fibrillation on chronic anticoagulation with Eliquis, coronary artery disease with prior 3 vessel CABG, ICD placement due to V tach, who is brought into [facility] emergency department after she was found down in her apartment with glucose reading "high" with AMS. Patient not able to provide history. Her neighbor says she last saw her 24 hours prior. She is in DKA, acute rhabdomyolysis, PRATIMA overlying CKD stage III, febrile with WBC 15.7, and lactic acidemia. CT brain is negative. U/a with rare bacteria. CXR with LLL infiltrate. Has multiple abx allergies and is noted to have allergies to some HIV meds??? Received aztreonam, vancomycin, flagyl, 1 L NS bolus and was started on DKA protocol in the ED. Her friend states she has been very depressed lately after the of her son 1-2 months ago. She has been taking nitroglycerin sublingual frequently. She has been admitted in the past in January 2016 for DKA when she decided to quit taking insulin. SUBJ 11/10/16: Blood sugar better controlled and 150s. IV insulin discontinued and sliding scale started. Patient is more awake and following commands alert. Troponin trending down. 2-D echo shows no wall motion abnormalities but mild to moderate MR, EF 45-50%. Creatinine remains elevated at 2.56 urine output 1.3 L since admission to ICU Objective Vital Signs Date Time Temp Pulse Resp B/P Pulse Ox O2 Delivery O2 Flow Rate FiO2 11/20/16 12:00 74 11/20/16 08:36 99 Nasal Cannula 2.00 11/20/16 04:00 97.2 26 124/59 Intake and Output 11/19/16 11/19/16 11/20/16 08:00 16:00 00:00 Intake Total 2000 ml Output Total 1200 ml Balance 800 ml Result Diagram: 11/20/16 0728 11/20/16 1136 Other Results Microbiology Date/Time Procedure Status Source Growth 11/19/16 20:20 Influenza Types A,B Antigen (RAY) - Final Complete Nasal Aspirate NEGATIVE FOR FLU A AND B ANTIGEN.... Laboratory Tests Test 11/19/16 19:37 Blood Gas Puncture Site RT BRACHIAL Blood Gas Patient Temperature 98.6 Blood Gas HCO3 5 mmol/L (22-26) Blood Gas Base Excess -20.9 mmol/L (-2-2) Blood Gas Oxygen Saturation 94 % (90-100) Arterial Blood pH 7.26 (7.380-7.420) Arterial Blood Partial 12 mmHg (38-42) Pressure CO2 Arterial Blood Partial 97 mmHg Pressure O2 (61-120) Arterial Blood Oxygen Content 14.8 Vol % (12.0-20.0) Arterial Blood 1.6 % (0-4) Carboxyhemoglobin Arterial Blood Methemoglobin 1.0 % (0-2) Blood Gas Hemoglobin 11.1 G/DL (12.0-16.0) Oxygen Delivery Device NASAL CANNULA Blood Gas Liter Flow 4.5 L/M Objective Remarks GENERAL: Thin elderly female, laying in ICU bed. Wakes up easily follows commands SKIN: Warm and dry. There is erythematous intertriginous rash bilateral groin and umbilicus c/w michael. Large ecchymosis over L inferior buttocks. HEAD: Atraumatic. Normocephalic EYES: Pupils equal and round, 2mm reactive. No scleral icterus. No injection or drainage. ENT: No nasal bleeding or discharge. Mucous membranes very dry. NECK: Trachea midline. Jugular veins flat. +Kernig sign. Negative Brudinski, though she does have some neck stiffness with anterior flexion. CARDIOVASCULAR: Regular rate and rhythm. 2/6 systolic murmur apex. RESPIRATORY: Tachypneic without accessory muscle use, CTAB, no w/r/r. GASTROINTESTINAL: Abdomen soft, non-tender, nondistended. Bowel sounds hypoactive : Mccord in place with dark yellow urine output. MUSCULOSKELETAL: Extremities without clubbing, cyanosis, or edema. NEUROLOGICAL: Spontaneously opening eyes. Alert awake follows commands. Urinary Catheter: Yes Assessment to: Continue A/P Assessment and Plan NEURO: Acute toxic metabolic encephalopathy Dementia Hold Aricept 5 mg by mouth daily at bedtime for now. Hold meclizine. CT brain negative for acute abnormality 11/19/16 CT C-spine - grade I retrolisthesis C3 in relation C2 and C4 and C in relation Cf. Degenerative changes Continue neurochecks. Would expect some neuro improvement as DKA resolves, but will monitor neuro status closely. RESP: COPD On RA vs 1-2 L NC. Wean as tolerated. Every 6 hours. Albuterol every 2 hours as needed CV: NSTEMI h/o Atrial fibrillation h/o Vtach s/p pacemaker ICD h/o CAD and prior SC Systolic heart failure EKG with no ST elevation. Troponins uptrending, now going down. Given ASA [address] bruner cardiology Once Heparin is off resume Eliquis. resume plavix in am. Start ASA 81 mg daily According to friend, patient had been taking NTG for chest pain. F/u 2DEcho-NoWMA EF 45-50. Dilated LA Cardiology consult. (known to Dion, ICD placed by Dr. Amaya) GI: 1999 ADA diet. Protonix 40 mg daily FEN/RENAL: Acute kidney injury overlying CKD stage III Hypophosphatemia Hypokalemia Lactic acidemia Acute rhabdomyolysis Mccord in place, monitor i/o. Monitor I's and replace as indicated. DC DKA protocol. Patient does appear severely volume depleted, continue IV hydration with NS. We'll monitor respiratory status and urine output closely ID: Leukocytosis Fever LLL community acquired vs aspiration Pneumonia Michael intertrigo Defer LP as patient has been anticoagulated on eliquis and plavix. Neuro exam much improved and patient will not need LP Empirically treated with meropenem (history of PCN and cephalosporin allergy) and vancomycin. ID consulted. Sent influenza screen, negative F/u blood and urine cultures. Nystatin apply affected area HEME: Monitor CBC ENDO: DKA DCd DKA protocol. Transition to subcutaneous insulin-anion gap is closed. Patient able to take PO diet PROPH: Heparin drip provides DVT prophylaxis. Protonix 40 mg IV daily ACCESS: PIV providing adequate access at this time. Dr. Ervin updated her contact, Leti Quiroz, who is a friend. She states she is not legal healthcare surrogate because "she never did fill out the paperwork" but states she is "all she [Jazmyn Palomo] has". She states she does not have a living will, is not . Her son Miles Dey is recently . Daughter . Two sons are not in contact. FULL CODE Level 3 Jaylen Pruitt MD Nov 20, 2016 13:30
[2016-11-20] MEDS: INSULIN DETEMIR 100 UNITS/ML VIAL SQ SCH ×2 (14:26→20:16)
[2016-11-20 14:37] LABS: APTT (PATIENT) 36.6 SEC (24.3-30.1)
--- NOTE | 2016-11-20 15:15 | MB ---
cc: LEXII SMITH MD DATE OF CONSULTATION: 11/20/2016 REQUESTING PHYSICIAN: Dr. Ervin. REASON FOR CONSULTATION: Sepsis, questionable meningitis. Unable to perform lumbar puncture due to anticoagulant. HISTORY OF PRESENT ILLNESS: This is a 76 year-old white female who was brought to the emergency department from a care home facility with altered mental status. The patient has multiple medical problems including an HIV and diabetes mellitus. She had temperature of 101.5 degrees, pulse of 100. White blood cell count of 15.7 in the emergency department and also lactic acid level of 3.7. The patient was found to have blood glucose of 957. She was in noted to have also acute kidney injury and felt to have for rhabdomyolysis, she has been admitted to the intensive care unit and is currently on going antibiotic treatment. The Patient's mental status was concerning for possible meningitis. A head CT scan was performed and showed no acute disease. Because she has been on Plavix a lumbar puncture could not be preformed. The patient has multiple antibiotic allergies. Currently she awakens to me and tries to respond verbally. When asked where she is and the year, she tries her best but cannot recall and mentioned to me "This is awful". She responds to commands. She keeps eyes open but looks somewhat lethargic. She denies headache. I am unable to get any meaningful information from her, therefore information is obtained from the medical record. PAST MEDICAL HISTORY: 1. The past medical history of hypertension. 2. Diabetes mellitus 3. Chronic obstructive pulmonary disease. 4. Atrial fibrillation on chronic anticoagulation use 5. Peripheral arterial disease. 6. Chronic kidney disease 7. Dementia. 8. Myocardial infarction with history of V-tach. 9. Pacemaker / ICD implantation Coronary bypass graft surgery 1998 10. Cataract surgery 11. Hysterectomy 12. HIV. ALLERGIES PENICILLIN CEPHALOSPORIN TETRACYCLINE BETA LACTAMS DARUNAVIR OPIATES AMPRENAVIR CORTIZONE SULFA CODEINE TIZANIDINE MEDICATIONS 1. Protonix. 2. Insulin. 3. Meropenem. 4. Vancomycin dose given on 11/19. 5. Metronidazole dose was given on 11/19 6. Aztreonam dose was given 329. SOCIAL HISTORY The patient is a care home resident. No alcohol. No tobacco or illicit drugs. FAMILY HISTORY Noncontributory. REVIEW OF SYSTEMS Review of systems unable to obtain. PHYSICAL EXAMINATION: IN GENERAL: This is a frail-appearing female who is in no acute distress. She appears lethargic. She is awake and attempts to communicate but has difficulty doing so. VITAL SIGNS: Vital signs: Include temperature of 97.2. Blood pressure 167/74, respirations 20, heart rate 84. HEAD, EYES, EARS, NOSE, AND THROAT: The head is atraumatic. Extraocular movements appear grossly intact. Pupils are constricted. Oropharynx is extremely dry mucosa. NECK: Supple. No adenopathy. No tenderness on palpation. LUNGS: Clear decreased breath sounds. HEART: Regular rate and rhythm. No murmurs, rubs or gallops. ABDOMEN: Bowel sounds present, soft, no tenderness appreciated. RECTAL : Not performed. EXTREMITIES: No clubbing or cyanosis or edema. SKIN: Skin is dry. No rash. NEUROLOGIC: No gross focal findings. The patient follows commands and the strength appears 04/05 in all muscle groups. PSYCHIATRIC: Unable to assess. LABORATORY DATA WBC 13.7, platelets 160, hemoglobin 11.3, Creatinine 2.56, BUN 45, sodium 148. The urine culture pending. Nasal screen positive for MRSA. Blood culture no growth. Chest x-ray Shows minimal patchiness within the left lung base. IMPRESSION 1. Sepsis in patient who presented with fever, tachycardia, leukocytosis, a lactic acidosis and altered mental status. Also the patient presented with acute kidney injury and DKA. 2. Altered mental status. The patient appears to have nonfocal exam and no neck stiffness and therefore probably does not have meningitis. We will need to do a lumbar puncture to definitely rule out meningitis but at this point I would observe her since we cannot do the lumbar puncture because of her anticoagulation status. 3. Multiple antibiotic allergies. 4. HIV disease 5. Leukocytosis secondary to infection. RECOMMENDATIONS 1. Continue meropenem. 2. Monitor clinical status. 3. If she deteriorates, consider redosing of vancomycin if her levels are subtherapeutic. 4. Follow urine culture. 5. Monitor blood cultures. Thank you for this consultation. I will monitor the patient's progress with you and will make further recommendations on followup. Lexii Smith MD FD/pavan /1:24 PM /2:07 PM MTDD
[2016-11-20] MEDS: RESP: ALBUTEROL 2.5 MG/IPRATROPIUM 0.5 MG NEB (SCH) INH ×2 (15:30→20:51)
--- NOTE | 2016-11-20 16:55 | PD.CONS ---
HPI Consult Requested By Reason for Consult Acute on chronic renal insufficiency. Primary Care Physician Esperanza Talamantes MD History of Present Illness This patient is a 76-year-old female. Patient is a poor historian and history primarily obtained from the records. According to the records I reviewed the patient has a history of diabetes mellitus, hypertension as well as HIV. Infectious disease is currently in consultation as well as critical care. The patient was admitted to this institution on November 19, 2016 after being found "down" in her apartment. On presentation to the hospital she was noted to have a blood sugar of 957 with a creatinine of 2.68 and initially a sodium of 133 as well as a total CO2 on BMP of 10.6. Beta hydroxybutyrate was elevated. Patient has been treated for DKA and serum sodium level as expected has increased as a glucose level has dropped. Creatinine level is slightly improved today at 2.56. There is also evidence of rhabdomyolysis on presentation with significantly elevated CK level and a urinalysis positive for large amount of blood but minimal rbc. Of interest patient was taking Crestor as an outpatient. Urine output improving with 1300 cc day of consultation.. Review of Systems ROS Limitations: Clinical Condition Past Family Social History Allergies: Coded Allergies: Cortisone (Verified Allergy, Severe, Rash, 11/12/16) Cortisone cream - rash on area that is apply Penicillin (Verified Allergy, Severe, Anaphylaxis, 11/12/16) Sulfa (Verified Allergy, Severe, Hives, 11/12/16) Hives on joints Cephalosporins (Verified Allergy, Unknown, 11/12/16) Codeine (Verified Allergy, Unknown, 11/12/16) Corticosteroids (Verified Allergy, Unknown, 11/12/16) Tizanidine (Verified Adverse Reaction, Severe, Dizziness, 11/12/16) Tetracyclines (Verified Adverse Reaction, Mild, 11/12/16) vomiting *MDRO Multi-Drug Resistant Organism (Verified Adverse Reaction, Unknown, ) MRSA (leg wound) 09/2012 and (finger wound) 09/2015 E-coli ESBL (urine) - 08/2013 MRSA PCR Screen POSITIVE - 11/20/2016 Uncoded Allergies: BETA LACTAMS (Allergy, Unknown, ., 09/26/15) UNK DARUNAVIR (Allergy, Unknown, ., 09/26/15) UNK OPIATES (Allergy, Unknown, ., 09/26/15) UNK AMPREVAVIR DERIVATIVES (Adverse Reaction, Unknown, ., 09/26/15) UNK Past Medical History According to the records HIV infection Diabetes mellitus Hypertension COPD Atrial flutter with previous ablation Coronary artery disease with previous CABG ICD placement, Chronic kidney disease with a baseline creatinine level which appears to range between about 1.13 and 1.0. Peripheral vascular disease Mention of dementia in the records. Patient is institutionalized. Past Surgical History As above. Reported Medications Reported Meds & Active Scripts Active Aricept (Donepezil) 5 Mg Tab 5 Mg PO HS Meclizine (Meclizine HCl) 25 Mg Tab 2 Tab PO Q12HR Nystatin Topical 100,000 unit/gm Oint 1 Applic TOPICAL Q12HR Lantus Solostar Pen Inj (Insulin Glargine) 300 Unit/3 Ml Pen 58 Units SQ HS [test strips] One Touch Ultra Blue Test 4x/day Reported Humalog Kwikpen Pen Inj (Insulin Lispro (Human) Inj) 300 Unit/3 Ml Pen 1 Units SQ TIDAC 32U if glucose 125-325 42U if glucose >325 Plavix (Clopidogrel Bisulfate) 75 Mg Tab 75 Mg PO DAILY Crestor (Rosuvastatin Calcium) 40 Mg Tab 40 Mg PO DAILY Eliquis (Apixaban) 2.5 Mg Tab 2.5 Mg PO BID Nitrostat SL (Nitroglycerin) 0.4 Mg Subl 0.4 Mg SL DIRECTED PRN ONE TABLET UNDER THE TONGUE NEEDED FOR CHEST PAIN, MAY REPEAT EVERY FIVE MINUTES FOR A TOTAL OF 3 DOSES OR CALL 911 IF NO RELIEF Atenolol 25 Mg Tab 25 Mg PO DAILY Active Ordered Medications Current Medications Sodium Chloride (NS 1000 ml Inj) 1,000 ml @ 2,000 mls/hr Q30M ONCE IV Last administered on 11/19/16 17:16; Start 11/19/16 at 17:26; Stop 11/19/16 at 17:55 ; Status DC Sodium Chloride 2 ml 2 ml UNSCH PRN IVF FLUSH AFTER USING IV ACCESS Last administered on 11/19/16 18:58; Start 11/19/16 at 17:00 Vancomycin HCl 1000 mg/Sodium Chloride 250 ml @ 250 mls/hr ONCE ONCE IV Last administered on 11/19/16 20:03; Start 11/19/16 at 17:30; Stop 11/19/16 at 18:29 ; Status DC Aztreonam 2000 mg/ Sodium Chloride 100 ml @ 200 mls/hr ONCE STAT IV Last administered on 11/19/16 20:56; Start 11/19/16 at 17:20; Stop 11/19/16 at 17:49 ; Status DC Metronidazole (Flagyl 500 Mg Inj) 100 ml @ 100 mls/hr ONCE STAT IV Last administered on 11/19/16 17:44; Start 11/19/16 at 17:20; Stop 11/19/16 at 18:19 ; Status DC Acetaminophen 650 mg 650 mg ONCE ONCE RECTAL Last administered on 11/19/16 17 :44; Start 11/19/16 at 17:30; Stop 11/19/16 at 17:31; Status DC Sodium Chloride 1,000 ml @ 250 mls/hr Q4H IV Last administered on 11/20/16 06 :33; Start 11/19/16 at 18:33 Dextrose/Sodium Chloride (D5W-NS 1000 ml Inj) 1,000 ml @ 120 mls/hr Q8H20M IV Last administered on 11/20/16 04:33; Start 11/19/16 at 18:33 Insulin Human Regular 5 units 5 units BOLUS ONCE IV PUSH Last administered on 11/19/16 18:58; Start 11/19/16 at 18:45; Stop 11/19/16 at 18:46; Status DC Insulin Human Regular 100 units/ Sodium Chloride 100 ml @ 0 mls/hr TITRATE IV Last administered on 11/19/16 19:39; Start 11/19/16 at 18:45; Stop 11/20/16 at 08:33; Status DC Potassium Chloride 100 ml @ 100 mls/hr Q1H PRN IV SEE LABEL COMMENTS; Start at 18:45 Potassium Chloride 100 ml @ 50 mls/hr Q2H PRN IV SEE LABEL COMMENTS; Start at 18:45 Potassium Chloride 100 ml @ 100 mls/hr Q1H PRN IV SEE LABEL COMMENTS; Start at 18:45 Potassium Chloride 100 ml @ 100 mls/hr Q1H PRN IV SEE LABEL COMMENTS; Start at 18:45 Potassium Chloride 100 ml @ 50 mls/hr Q2H PRN IV SEE LABEL COMMENTS; Start at 18:45 Potassium Chloride 100 ml @ 50 mls/hr Q2H PRN IV SEE LABEL COMMENTS; Start at 18:45 Potassium Chloride 100 ml @ 50 mls/hr Q2H PRN IV SEE LABEL COMMENTS Last administered on 11/20/16 00:18; Start 11/19/16 at 18:45 Potassium Chloride (KCl 20 Meq Premix Inj) 100 ml @ 50 mls/hr Q2H PRN IV SEE LABEL COMMENTS; Start 11/19/16 at 18:45; Stop 11/20/16 at 13:53; Status DC Sodium Bicarbonate (Sodium Bicarbonate 8.4% Inj) 100 meq UNSCH PRN IV SEE LABEL COMMENTS; Start 11/19/16 at 18:45 Sodium Bicarbonate 50 meq 50 meq UNSCH PRN IV SEE LABEL COMMENTS; Start at 18:45 Sodium Phosphate 15 mmol/Sodium Chloride 105 ml @ 25 mls/hr UNSCH PRN IV SEE LABEL COMMENTS; Start 11/19/16 at 18:45 Pharmacy Profile Note (Vancomycin Consult Pharmacy) 0 ml @ 0 mls/hr UNSCH OTHER ; Start 11/19/16 at 22:30 Miscellaneous Medication (ASP Crit: Doc allergy to Penicillin/ Cephalosp) 1 UNSCH X1 PRN .XX PHARMACY DOCUMENTATION; Start 11/19/16 at 22:45; Stop at 22:44 Miscellaneous Medication 1 1 UNSCH X1 PRN XX PHARMACY DOCUMENTATION; Start at 22:45; Stop 11/20/16 at 22:44 Meropenem/Sodium Chloride (Merrem Inj/NS Inj) 100 ml @ 200 mls/hr Q12H IV Last administered on 11/20/16 12:23; Start 11/20/16 at 00:00; Stop 11/20/16 at 15:05; Status DC Aspirin (Aspirin Supp) 300 mg ONCE ONCE RECTAL Last administered on 11/20/16 08:57; Start 11/20/16 at 01:45; Stop 11/20/16 at 01:48; Status DC Pantoprazole Sodium (Protonix Inj) 40 mg DAILY IV Last administered on 08:57; Start 11/20/16 at 09:00 Ondansetron HCl (Zofran Inj) 4 mg Q6H PRN IV NAUSEA OR VOMITING; Start at 04:15 Albuterol/ Ipratropium (Duoneb Neb) 1 ampule Q6HR NEB INH Last administered on 11/20/16 15:30; Start 11/20/16 at 10:00 Albuterol Sulfate (Albuterol Neb) 2.5 mg Q2HR NEB PRN INH SOB/WHEEZING; Start 11/20/16 at 04:15 Miscellaneous Information 1 Q361D XX ; Start 11/20/16 at 04:15 Chlorhexidine Gluconate (Chlorhexidine 2% Cloth) 3 pack Taper DAILY@04 TOP ; Start 11/21/16 at 04:00; Stop 11/17/17 at 03:59 Chlorhexidine Gluconate 3 pack 3 pack UNSCH PRN TOP HYGIENIC CARE; Start at 04:15 Potassium Phosphate/Sodium Chloride (Potassium Phosphate Inj/NS 250 ml Inj) 260 ml @ 43.333 mls/ hr ONCE ONCE IV Last administered on 11/20/16 05:48; Start 11/20/16 at 04:30; Stop 11/20/16 at 10:29; Status DC Nystatin (Mycostatin Cream) 1 applic Q12HR TOPICAL Last administered on 08:58; Start 11/20/16 at 09:00 Dextrose 50 ml 50 ml STK-MED ONCE .ROUTE ; Start 11/20/16 at 07:01; Stop at 07:02; Status DC Heparin Sodium/ Dextrose (Heparin-D5W Inj) 250 ml @ 0 mls/hr TITRATE IV Last administered on 11/20/16 08:47; Start 11/20/16 at 07:00 Miscellaneous Medication ([facility] Pharmacy Information) Please discontinue previ... ONCE ONCE .XX ; Start 11/20/16 at 08:45; Stop 11/20/16 at 08:46; Status DC Dextrose (D50w (Vial) Inj) 25 ml UNSCH PRN IV PUSH HYPOGLYCEMIA - SEE COMMENTS ; Start 11/20/16 at 08:45; Stop 11/20/16 at 13:53; Status DC Glucagon (Glucagon Inj) 1 mg UNSCH PRN OTHER HYPOGLYCEMIA-SEE COMMENTS; Start 11/20/16 at 08:45; Stop 11/20/16 at 13:53; Status DC Insulin Aspart (NovoLOG SUPPLEMENTAL SCALE) 1 Q4H SQ Last administered on 12:00; Start 11/20/16 at 08:00; Stop 11/20/16 at 13:53; Status DC Insulin Detemir (Levemir Inj) 10 units Q12HR SQ Last administered on 11/20/16 14:26; Start 11/20/16 at 13:30 Clopidogrel Bisulfate (Plavix) 75 mg DAILY PO ; Start 11/21/16 at 09:00 Aspirin 81 mg 81 mg DAILY CHEW ; Start 11/21/16 at 09:00 Sodium Chloride 1,000 ml @ 125 mls/hr Q8H IV ; Start 11/20/16 at 15:00 Meropenem/Sodium Chloride (Merrem Inj/NS Inj) 100 ml @ 200 mls/hr Q12H IV ; Start 11/21/16 at 00:00 Family History History of carcinoma in records. Social History Patient currently in an institution so assuming no current alcohol or tobacco abuse. Physical Exam Vital Signs Vital Signs Date Time Temp Pulse Resp B/P Pulse Ox O2 Delivery O2 Flow Rate FiO2 11/20/16 14:00 71 11/20/16 12:00 74 11/20/16 10:00 79 11/20/16 08:36 99 Nasal Cannula 2.00 11/20/16 08:00 75 11/20/16 06:00 78 11/20/16 04:00 97.2 77 26 124/59 100 11/20/16 02:45 81 11/20/16 00:35 99.0 90 20 141/63 97 Room Air 11/19/16 23:21 95 22 116/74 98 Room Air 11/19/16 21:49 93 24 132/60 100 Nasal Cannula 2 11/19/16 20:01 98 31 150/70 95 Nasal Cannula 4.5 11/19/16 20:00 99.3 11/19/16 19:32 102 40 148/86 88 Nasal Cannula 4.5 11/19/16 18:00 100 30 143/88 95 Nasal Cannula 4 11/19/16 17:10 95 Nasal Cannula 4 11/19/16 17:09 101.5 102 28 158/84 95 Nasal Cannula 4 11/19/16 17:00 28 95 Nasal Cannula 4 11/19/16 16:50 101.5 102 28 158/54 95 Nasal Cannula 2 Physical Exam GENERAL: Very frail elderly-appearing female not in respiratory distress. SKIN: Warm and dry. Skin turgor diminished. HEAD: Normocephalic. EYES: No scleral icterus. No injection or drainage. NECK: Supple, trachea midline. No JVD or lymphadenopathy. CARDIOVASCULAR: Regular rate and rhythm without murmurs, gallops, or rubs. RESPIRATORY: Breath sounds equal bilaterally. No accessory muscle use. GASTROINTESTINAL: Abdomen soft, non-tender, nondistended. MUSCULOSKELETAL: No cyanosis, or edema. BACK: Nontender without obvious deformity. No CVA tenderness. Laboratory Laboratory Tests Test 11/19/16 11/19/16 11/19/16 11/19/16 17:00 19:37 20:50 22:30 White Blood Count 15.7 Red Blood Count 4.74 Hemoglobin 13.3 Hematocrit 41.1 Mean Corpuscular Volume 86.8 Mean Corpuscular Hemoglobin 28.1 Mean Corpuscular Hemoglobin 32.4 Concent Red Cell Distribution Width 15.2 Platelet Count 199 Mean Platelet Volume 10.3 Neutrophils (%) (Auto) 87.3 Lymphocytes (%) (Auto) 5.9 Monocytes (%) (Auto) 6.5 Eosinophils (%) (Auto) 0.0 Basophils (%) (Auto) 0.3 Neutrophils # (Auto) 13.7 Lymphocytes # (Auto) 0.9 Monocytes # (Auto) 1.0 Eosinophils # (Auto) 0.0 Basophils # (Auto) 0.0 CBC Comment DIFF FINAL Differential Comment Urine Color LIGHT-YELLOW Urine Turbidity CLEAR Urine pH 6.0 Urine Specific [place] 1.022 Urine Protein 100 Urine Glucose (UA) 1000 Urine Ketones 10 Urine Occult Blood LARGE Urine Nitrite NEG Urine Bilirubin NEG Urine Urobilinogen LESS THAN 2.0 Urine Leukocyte Esterase NEG Urine RBC 1 Urine WBC 2 Urine Squamous Epithelial <1 Cells Urine Bacteria RARE Microscopic Urinalysis Comment CULT NOT INDICATED Sodium Level 133 140 Potassium Level 4.3 3.6 Chloride Level 97 109 Carbon Dioxide Level 10.6 11.8 Anion Gap 25 19 Blood Urea Nitrogen 42 44 Creatinine 2.68 2.57 Estimat Glomerular Filtration 17 18 Rate Random Glucose 957 716 Lactic Acid Level 3.7 2.2 Calcium Level 9.2 8.5 Magnesium Level 2.7 Total Bilirubin 1.0 Aspartate Amino Transf 46 (AST/SGOT) Alanine Aminotransferase 23 (ALT/SGPT) Alkaline Phosphatase 99 Total Creatine Kinase 1774 Creatine Kinase MB 18.1 Creatine Kinase MB % 1.0 Troponin I 0.51 Total Protein 7.6 Albumin 3.7 B-Hydroxybutyrate 8.17 Blood Gas Puncture Site RT BRACHIAL Blood Gas Patient Temperature 98.6 Blood Gas HCO3 5 Blood Gas Base Excess -20.9 Blood Gas Oxygen Saturation 94 Arterial Blood pH 7.26 Arterial Blood Partial 12 Pressure CO2 Arterial Blood Partial 97 Pressure O2 Arterial Blood Oxygen Content 14.8 Arterial Blood 1.6 Carboxyhemoglobin Arterial Blood Methemoglobin 1.0 Blood Gas Hemoglobin 11.1 Oxygen Delivery Device NASAL CANNULA Blood Gas Liter Flow 4.5 Prothrombin Time 11.5 Prothromb Time International 1.0 Ratio Activated Partial 23.5 Thromboplast Time Test 11/19/16 11/20/16 11/20/16 11/20/16 22:45 01:20 02:00 02:45 Troponin I 3.54 Sodium Level 145 Potassium Level 3.4 Chloride Level 115 Carbon Dioxide Level 15.9 Anion Gap 14 Blood Urea Nitrogen 42 Creatinine 2.54 Estimat Glomerular Filtration 18 Rate Random Glucose 493 Calcium Level 8.4 Phosphorus Level 1.1 Magnesium Level 2.3 Lactic Acid Level 3.0 Total Creatine Kinase 6385 Creatine Kinase MB 48.4 Creatine Kinase MB % 0.8 Nasal Screen MRSA (PCR) POSITIVE Test 11/20/16 11/20/16 11/20/16 11/20/16 05:29 07:28 10:02 11:36 White Blood Count 12.6 13.7 Red Blood Count 4.17 4.20 Hemoglobin 11.4 11.3 Hematocrit 33.6 34.2 Mean Corpuscular Volume 80.6 81.4 Mean Corpuscular Hemoglobin 27.3 26.8 Mean Corpuscular Hemoglobin 33.9 33.0 Concent Red Cell Distribution Width 14.7 15.0 Platelet Count 160 160 Mean Platelet Volume 8.4 8.7 Neutrophils (%) (Auto) 81.6 Lymphocytes (%) (Auto) 10.6 Monocytes (%) (Auto) 7.7 Eosinophils (%) (Auto) 0.0 Basophils (%) (Auto) 0.1 Neutrophils # (Auto) 10.3 Lymphocytes # (Auto) 1.3 Monocytes # (Auto) 1.0 Eosinophils # (Auto) 0.0 Basophils # (Auto) 0.0 CBC Comment DIFF FINAL Differential Comment Sodium Level 151 148 Potassium Level 3.2 4.1 Chloride Level 123 123 Carbon Dioxide Level 17.8 14.9 Anion Gap 10 10 Blood Urea Nitrogen 44 45 Creatinine 2.56 2.56 Estimat Glomerular Filtration 18 18 Rate Random Glucose 55 261 Lactic Acid Level 2.0 1.6 Calcium Level 8.7 8.2 Phosphorus Level 1.1 2.8 Magnesium Level 2.2 2.1 Total Bilirubin 0.6 Aspartate Amino Transf 195 (AST/SGOT) Alanine Aminotransferase 46 (ALT/SGPT) Alkaline Phosphatase 72 Total Creatine Kinase 6901 Creatine Kinase MB 49.7 Creatine Kinase MB % 0.7 Troponin I 7.81 5.58 Total Protein 6.2 Albumin 3.0 B-Hydroxybutyrate 0.07 Prothrombin Time 11.3 Prothromb Time International 1.0 Ratio Activated Partial 22.4 Thromboplast Time Test 11/20/16 13:50 Activated Partial 36.6 Thromboplast Time Lactic Acid Level 1.6 Date/Time Procedure Status Source Growth 11/19/16 20:20 Influenza Types A,B Antigen (RAY) - Final Complete Nasal Aspirate NEGATIVE FOR FLU A AND B ANTIGEN.... 11/19/16 17:05 Aerobic Blood Culture - Preliminary Resulted Blood Peripheral NO GROWTH IN 1 DAY 11/19/16 17:05 Anaerobic Blood Culture - Preliminary Resulted Blood Peripheral NO GROWTH IN 1 DAY 11/19/16 17:00 Urine Culture - Preliminary Resulted Urine Catheterized Urine NO GROWTH IN 24 HOURS. Result Diagram: 11/20/16 0728 11/20/16 1136 Imaging Last 48 hours Impressions Pelvis X-Ray 11/19/16 0000 Signed Impressions: Service Date/Time: Saturday, November 19, 2016 18:23 - CONCLUSION: 1. Moderate degenerative changes involving the hip joints bilaterally. 2. Degenerative changes involving the lower lumbar spine. 3. No acute fracture or dislocation. Joey Rosenthal MD Head CT 11/19/16 0000 Signed Impressions: Service Date/Time: Saturday, November 19, 2016 17:54 - CONCLUSION: No acute disease. Joey Rosenthal MD Chest X-Ray 11/19/16 0000 Signed Impressions: Service Date/Time: Saturday, November 19, 2016 18:40 - CONCLUSION: 1. Minimal patchiness within the left lung base consistent with atelectasis and/or mild infiltrate. Clinical correlation is recommended. Joey Rosenthal MD Cervical Spine CT 11/19/16 0000 Signed Impressions: Service Date/Time: Saturday, November 19, 2016 17:54 - CONCLUSION: 1. Extensive motion artifact particularly at C3 and C4 levels which limits interpretation of these levels. 2. Grade I retrolisthesis of C3 in relation to C4 and C2 as well as C4 in relation to C5. 3. Diffuse cervical spondylosis at C5-C6, C6- C7 and to a lesser extent at C4-C5 and C3-C4. 4. No acute fracture or prevertebral soft-tissue swelling. 5. Mild spinal stenosis at C5-C6. 6. Mild bilateral foraminal narrowing at C5-C6 and C6-C7 and to a lesser extent at C4- C5 and C3-C4. 7. Reversal of the normal cervical lordosis. Joey Rosenthal MD Assessment and Plan Problem List: (1) PRATIMA (acute kidney injury) Plan: Secondary to dehydration related to poor oral fluid intake as well as polyuria related to diabetic ketoacidosis. In addition however the patient has possibly sustained significant acute kidney injury related to rhabdomyolysis. Continue aggressive hydration as long as tolerated. Renal ultrasound to exclude occult obstruction. Medications should be adjusted for the patient's estimated GFR if clinically indicated. Avoid agents with significant potential for nephrotoxicity possible including NSAIDs for analgesia, iodine contrast agents. Gadolinium is contraindicated if the GFR is below 30. (2) Rhabdomyolysis Plan: Most likely secondary to compression injury while patient was on the floor. Patient was on a statin drug i.e. Crestor so uncertain to what degree this may have played a role also. (3) Sepsis Plan: Infectious disease following. (4) CKD (chronic kidney disease) stage 3, GFR 30-59 ml/min Plan: Secondary to nephrosclerosis of hypertension and aging. (5) Metabolic acidosis Plan: Most likely related to diabetic ketoacidosis although there may be a component related to renal insufficiency also. Diabetic ketoacidosis should self corrects with improvement in blood sugar and renal perfusion. If the acidosis remains significant however will consider adding sodium bicarbonate supplementation. Mario Valdes MD Nov 20, 2016 16:55
[2016-11-20 18:20] LABS: APTT (PATIENT) 33.2 SEC (24.3-30.1)
[2016-11-20 18:35] LABS: BETA-HYDROXYBUTYRATE 0.24 MMOL/L (0.00-0.39); BICARBONATE 14.6 MEQ/L (21.0-32.0); MAGNESIUM 2.1 MG/DL (1.5-2.5); POTASSIUM 3.3 MEQ/L (3.5-5.1)
[2016-11-20 22:19] LABS: APTT (PATIENT) 37.3 SEC (24.3-30.1)
[2016-11-20 22:39] LABS: HEMOGLOBIN A1a 2.1 %; HEMOGLOBIN F 5.2 %; HEMOGLOBIN LA1C 5.5 %; HEMOGLOBIN P3 7.4 %
[2016-11-20 22:40] LABS: HEMOGLOBIN Ao 62.4 %
[2016-11-21] VITALS (14 sets, daily range): BP systolic 119–167; BP diastolic 57–67; PULSE 75–98; RESP 17–22; TEMP 98–98.5; O2SAT 96–100
[2016-11-21] MEDS: NS IV SCH ×6 (00:05→23:41)
[2016-11-21] MEDS: MEROPENEM IV SCH ×6 (00:05→23:41)
[2016-11-21] MEDS: MEDIUM DOSE INSULIN NOVOLOG SUPPLEMENTAL SCALE SQ SCH ×7 (00:06→23:41)
[2016-11-21] MEDS: RESP: ALBUTEROL 2.5 MG/IPRATROPIUM 0.5 MG NEB (SCH) INH ×4 (03:37→21:40)
[2016-11-21] MEDS: CHLORHEXIDINE GLUCONATE 2 % 1 PACK (2 CLOTHS) TOP SCH ×2 (04:00→20:09)
[2016-11-21 04:25] LABS: APTT (PATIENT) 44.2 SEC (24.3-30.1)
[2016-11-21 04:32] LABS: AUTOMATED NEUTROPHIL # 7.9 TH/MM3 (1.8-7.7); BASOPHIL % 0.1 % (0.0-2.0); EOSINOPHIL % 0.1 % (0.0-4.0); HEMO FLAGS DIFF FINAL; LYMPH % 10.8 % (9.0-44.0); LYMPHOCYTE # 1.1 TH/MM3 (1.0-4.8); MEAN CELL VOLUME 81.4 FL (80.0-100.0); MEAN CORPUSCULAR HEMOGLOBIN 27.3 PG (27.0-34.0); MEAN CORPUSCULAR HGB CONC 33.5 % (32.0-36.0); MONO % 9.8 % (0.0-8.0); NEUT % 79.2 % (16.0-70.0); PLATELET COUNT 124 TH/MM3 (150-450); RED BLOOD COUNT 4.17 MIL/MM3 (4.00-5.30); RED CELL DISTRIBUTION WIDTH 15.2 % (11.6-17.2)
[2016-11-21 04:50] LABS: ALKALINE PHOSPHATASE 69 U/L (45-117); ALT (GPT) 58 U/L (10-53); ANION GAP 11 MEQ/L (5-15); AST (GOT) 185 U/L (15-37); BICARBONATE 14.8 MEQ/L (21.0-32.0); BLOOD UREA NITROGEN 53 MG/DL (7-18); CHLORIDE 127 MEQ/L (98-107); GLOMERULAR FILTRATION RATE 13 ML/MIN (>89); POTASSIUM 3.3 MEQ/L (3.5-5.1); SODIUM (NA) 153 MEQ/L (136-145); TOTAL BILIRUBIN ADULT 0.5 MG/DL (0.2-1.0)
--- NOTE | 2016-11-21 06:19 | RADRPT ---
EXAM DATE/TIME: 11/21/2016 04:32 [facility] COMPARISON: CHEST SINGLE AP, November 19, 2016, 18:40. INDICATIONS : Shortness of breath. MEDICAL HISTORY : Hypertension. Cardiovascular disease. Congestive heart failure. SURGICAL HISTORY : CABG. Pacemaker. ENCOUNTER: Subsequent ACUITY: 3 days PAIN SCORE: Non-responsive. LOCATION: Bilateral chest FINDINGS: Portable AP view of the chest demonstrates a normal-sized cardiac silhouette with cardiac pacing matthew ce present. Patient is post median sternotomy. Patient is rotated and underinflated and there is mild bibasilar airspace opacity. No pneumothorax or pleural effusion is appreciated. CONCLUSION: Rotated and underinflated examination with new mild bibasilar opacity representing either atelectasis or consolidation. Edmond Valdez MD on November 21, 2016 at 6:15 Board Certified Radiologist. This report was verified electronically.
[2016-11-21] MEDS: ASPIRIN 81 MG CHEW TAB CHEW SCH (08:49)
[2016-11-21] MEDS: PANTOPRAZOLE SODIUM 40 MG VIAL IV SCH (08:49)
[2016-11-21] MEDS: CLOPIDOGREL 75 MG TAB PO SCH (08:49)
[2016-11-21] MEDS: NYSTATIN 100,000 UNIT/GM CREAM 15 GM TOPICAL SCH ×2 (08:58→20:09)
[2016-11-21] MEDS ORDERED: VANCOMYCIN INJ 1,000 MG in SODIUM CHLOR 0.9% 250 ML INJ 250 ML IV ONE (09:00)
--- NOTE | 2016-11-21 10:10 | HHI.CCPN ---
Subjective Remarks/Hospital Course 76-year-old female, [facility] resident, with past medical history of diabetes, hypertension, COPD, atrial fibrillation on chronic anticoagulation with Eliquis, coronary artery disease with prior 3 vessel CABG, ICD placement due to V tach, who is brought into [facility] emergency department after she was found down in her apartment with glucose reading "high" with AMS. Patient not able to provide history. Her neighbor says she last saw her 24 hours prior. She is in DKA, acute rhabdomyolysis, PRATIMA overlying CKD stage III, febrile with WBC 15.7, and lactic acidemia. CT brain is negative. U/a with rare bacteria. CXR with LLL infiltrate. Has multiple abx allergies and is noted to have allergies to some HIV meds??? Received aztreonam, vancomycin, flagyl, 1 L NS bolus and was started on DKA protocol in the ED. Her friend states she has been very depressed lately after the of her son 1-2 months ago. She has been taking nitroglycerin sublingual frequently. She has been admitted in the past in January 2016 for DKA when she decided to quit taking insulin. SUBJ 11/10/16: Blood sugar better controlled and 150s. IV insulin discontinued and sliding scale started. Patient is more awake and following commands alert. Troponin trending down. 2-D echo shows no wall motion abnormalities but mild to moderate MR, EF 45-50%. Creatinine remains elevated at 2.56 urine output 1.3 L since admission to ICU 11/21 Patient is lying in bed in NAD. Afebrile. On Heparin drip. Afebrile. Renal function worse today with Cr: 3.48 from 3.05 and UO;600ml in 24 hrs. Objective Vital Signs Date Time Temp Pulse Resp B/P Pulse Ox O2 Delivery O2 Flow Rate FiO2 11/21/16 08:18 96 Nasal Cannula 1.50 11/21/16 08:00 98 11/21/16 04:00 98.1 22 135/60 Intake and Output 11/20/16 11/20/16 11/21/16 08:00 16:00 00:00 Intake Total 979 ml 2127 ml 795 ml Output Total 100 ml 300 ml 150 ml Balance 879 ml 1827 ml 645 ml Result Diagram: 11/21/1631811/21/16318 Other Results Laboratory Tests Test 11/20/16 11/20/16 11/20/16 11/20/16 10:02 11:36 13:50 17:43 Lactic Acid Level 1.6 mmol/L 1.6 mmol/L Sodium Level 148 MEQ/L Potassium Level 4.1 MEQ/L Chloride Level 123 MEQ/L Carbon Dioxide Level 14.9 MEQ/L Anion Gap 10 MEQ/L Blood Urea Nitrogen 45 MG/DL Creatinine 2.56 MG/DL Estimat Glomerular Filtration 18 ML/MIN Rate Random Glucose 261 MG/DL Calcium Level 8.2 MG/DL Phosphorus Level 2.8 MG/DL Magnesium Level 2.1 MG/DL Troponin I 5.58 NG/ML Activated Partial 36.6 SEC 33.2 SEC Thromboplast Time Test 11/20/16 11/20/16 11/21/16 17:49 21:47 03:19 Sodium Level 150 MEQ/L 153 MEQ/L Potassium Level 3.3 MEQ/L 3.3 MEQ/L Chloride Level 124 MEQ/L 127 MEQ/L Carbon Dioxide Level 14.6 MEQ/L 14.8 MEQ/L Anion Gap 11 MEQ/L 11 MEQ/L Blood Urea Nitrogen 47 MG/DL 53 MG/DL Creatinine 3.09 MG/DL 3.48 MG/DL Estimat Glomerular Filtration 15 ML/MIN 13 ML/MIN Rate Random Glucose 290 MG/DL 56 MG/DL Lactic Acid Level 1.9 mmol/L Calcium Level 8.2 MG/DL 8.4 MG/DL Phosphorus Level 1.9 MG/DL Magnesium Level 2.1 MG/DL 2.0 MG/DL Thyroid Stimulating Hormone 1.610 uIU/ML 3rd Gen B-Hydroxybutyrate 0.24 MMOL/L Activated Partial 37.3 SEC 44.2 SEC Thromboplast Time White Blood Count 10.0 TH/MM3 Red Blood Count 4.17 MIL/MM3 Hemoglobin 11.4 GM/DL Hematocrit 34.0 % Mean Corpuscular Volume 81.4 FL Mean Corpuscular Hemoglobin 27.3 PG Mean Corpuscular Hemoglobin 33.5 % Concent Red Cell Distribution Width 15.2 % Platelet Count 124 TH/MM3 Mean Platelet Volume 9.1 FL Neutrophils (%) (Auto) 79.2 % Lymphocytes (%) (Auto) 10.8 % Monocytes (%) (Auto) 9.8 % Eosinophils (%) (Auto) 0.1 % Basophils (%) (Auto) 0.1 % Neutrophils # (Auto) 7.9 TH/MM3 Lymphocytes # (Auto) 1.1 TH/MM3 Monocytes # (Auto) 1.0 TH/MM3 Eosinophils # (Auto) 0.0 TH/MM3 Basophils # (Auto) 0.0 TH/MM3 CBC Comment DIFF FINAL Differential Comment Total Bilirubin 0.5 MG/DL Aspartate Amino Transf 185 U/L (AST/SGOT) Alanine Aminotransferase 58 U/L (ALT/SGPT) Alkaline Phosphatase 69 U/L Total Protein 5.8 GM/DL Albumin 2.5 GM/DL 25-Hydroxy Vitamin D Total 18.5 ng/ML Random Vancomycin Level 11.8 COMMENT Imaging Last Impressions Chest X-Ray 11/21/16 0600 Signed Impressions: Service Date/Time: Monday, November 21, 2016 04:32 - CONCLUSION: Rotated and underinflated examination with new mild bibasilar opacity representing either atelectasis or consolidation. Edmond Valdez MD Pelvis X-Ray 11/19/16 0000 Signed Impressions: Service Date/Time: Saturday, November 19, 2016 18:23 - CONCLUSION: 1. Moderate degenerative changes involving the hip joints bilaterally. 2. Degenerative changes involving the lower lumbar spine. 3. No acute fracture or dislocation. Joey Rosenthal MD Head CT 11/19/16 0000 Signed Impressions: Service Date/Time: Saturday, November 19, 2016 17:54 - CONCLUSION: No acute disease. Joey Rosenthal MD Cervical Spine CT 11/19/16 0000 Signed Impressions: Service Date/Time: Saturday, November 19, 2016 17:54 - CONCLUSION: 1. Extensive motion artifact particularly at C3 and C4 levels which limits interpretation of these levels. 2. Grade I retrolisthesis of C3 in relation to C4 and C2 as well as C4 in relation to C5. 3. Diffuse cervical spondylosis at C5-C6, C6- C7 and to a lesser extent at C4-C5 and C3-C4. 4. No acute fracture or prevertebral soft-tissue swelling. 5. Mild spinal stenosis at C5-C6. 6. Mild bilateral foraminal narrowing at C5-C6 and C6-C7 and to a lesser extent at C4- C5 and C3-C4. 7. Reversal of the normal cervical lordosis. Joey Rosenthal MD Objective Remarks GENERAL: Patient is lying in bed in NAD SKIN: Warm and dry. HEAD: Normocephalic. EYES: No scleral icterus. No injection or drainage. NECK: Supple, trachea midline. No JVD or lymphadenopathy. CARDIOVASCULAR: Regular rate and rhythm 2/6 systolic murmur apex. RESPIRATORY: Breath sounds equal bilaterally. No accessory muscle use. GASTROINTESTINAL: Abdomen soft, non-tender, nondistended. MUSCULOSKELETAL: No cyanosis, or edema. Neuro: Awake and alert A/P Assessment and Plan NEURO: Acute toxic metabolic encephalopathy - improving Dementia CT brain negative for acute abnormality 11/19/16 CT C-spine - grade I retrolisthesis C3 in relation C2 and C4 and C in relation Cf. Degenerative changes Monitor neuro status and avoid sedatives. RESP: COPD Continue with oxygen keep sat >92% Bronchodilators CV: NSTEMI h/o Atrial fibrillation h/o Vtach s/p pacemaker ICD h/o CAD and prior ND Systolic heart failure Monitor HR and BP keep MAP>65mmHg On ASA 81mg daily, Plavix 75mg daily, heparin drip Dr. bruner cardiology 11/19 F/u 2DEcho-NoWMA EF 45-50%. Dilated LA GI: 1999 ADA diet. Protonix 40 mg daily FEN/RENAL: Acute kidney injury overlying CKD stage III Hypernatremia Lactic acidemia- Resolved Acute rhabdomyolysis Monitor renal function, I/O's, avoid nephrotoxins Cr: 3.48 today from 3.09, UO:600ml in 24 hrs Renal-Dr. Valdes- change IVF 1/2NS+75meq bicarb @75ml/hr Check renal US ID: Leukocytosis HIV LLL community acquired vs aspiration Pneumonia Mari intertrigo Empirically treated with meropenem (history of PCN and cephalosporin allergy) and vancomycin. ID is following Sent influenza screen, negative F/u blood and urine cultures. Nystatin apply affected area HEME: Monitor CBC ENDO: DKA On SSI( medium scale) d/c Levemir PROPH: Heparin drip provides DVT prophylaxis. Protonix 40 mg IV daily ACCESS: PIV providing adequate access at this time. Level 3 Corine Davis MD Nov 21, 2016 10:10 . Daughter . Two sons are not in contact. FULL CODE Level 3 Corine Davis MD Nov 21, 2016 10:10
[2016-11-21 11:18] LABS: APTT (PATIENT) 43.4 SEC (24.3-30.1)
[2016-11-21] MEDS: SODIUM BICARBONATE 8.4% INJ 75 MEQ in SODIUM CHLOR 0.45% 1000 ML INJ 1,000 ML IV SCH ×2 (11:30→23:41)
--- NOTE | 2016-11-21 12:31 | HHI.IDPN ---
Note Infectious Disease Note Patient is very alert. Speaking cohesively and pleasant. Afebrile. Notes pain where she was stuck for blood draws. No other complaints. Denies COREAS. Patient was brought to the emergency department from a [facility] facility with altered mental status. PAST MEDICAL HISTORY: 1. The past medical history of hypertension. 2. Diabetes mellitus 3. Chronic obstructive pulmonary disease. 4. Atrial fibrillation on chronic anticoagulation use 5. Peripheral arterial disease. 6. Chronic kidney disease 7. Dementia. 8. Myocardial infarction with history of V-tach. 9. Pacemaker / ICD implantation Coronary bypass graft surgery 1998 10. Cataract surgery 11. Hysterectomy 12. HIV. ALLERGIES PENICILLIN CEPHALOSPORIN TETRACYCLINE BETA LACTAMS DARUNAVIR OPIATES AMPRENAVIR CORTIZONE SULFA CODEINE TIZANIDINE ANTIBIOTICS Meropenem. SOCIAL HISTORY The patient is a [facility] resident. No alcohol. No tobacco or illicit drugs. REVIEW OF SYSTEMS Negative on 10 point review. OBJECTIVE: Vital Signs Date Time Temp Pulse Resp B/P Pulse Ox O2 Delivery O2 Flow Rate FiO2 11/21/16 10:00 95 11/21/16 08:18 96 Nasal Cannula 1.50 11/21/16 08:00 98 11/21/16 06:00 93 11/21/16 04:00 92 11/21/16 04:00 98.1 92 22 135/60 100 11/21/16 02:00 90 11/21/16 00:00 90 11/21/16 00:00 98.0 90 20 119/57 99 11/20/16 22:00 91 11/20/16 21:00 74 20 145/66 100 11/20/16 20:51 97 Nasal Cannula 1.50 11/20/16 20:10 74 11/20/16 20:00 98.3 138 24 99/55 100 11/20/16 20:00 138 11/20/16 18:00 74 11/20/16 16:00 98.2 90 17 108/55 93 11/20/16 16:00 72 11/20/16 14:00 71 11/20/16 11/20/16 11/21/16 15:00 23:00 07:00 Intake Total 2127 ml 795 ml 912 ml Output Total 300 ml 150 ml 150 ml Balance 1827 ml 645 ml 762 ml Intake Oral 240 ml 120 ml IV Total 2127 ml 555 ml 792 ml Output Urine Total 300 ml 150 ml 150 ml # Bowel Movements 0 0 Laboratory Tests Test 11/19/16 11/20/16 11/20/16 11/21/16 17:00 05:29 07:28 03:19 White Blood Count 15.7 TH/MM3 12.6 TH/MM3 13.7 TH/MM3 10.0 TH/MM3 Red Blood Count 4.74 MIL/MM3 4.17 MIL/MM3 4.20 MIL/MM3 4.17 MIL/MM3 Hemoglobin 13.3 GM/DL 11.4 GM/DL 11.3 GM/DL 11.4 GM/DL Hematocrit 41.1 % 33.6 % 34.2 % 34.0 % Mean Corpuscular Volume 86.8 FL 80.6 FL 81.4 FL 81.4 FL Mean Corpuscular Hemoglobin 28.1 PG 27.3 PG 26.8 PG 27.3 PG Mean Corpuscular Hemoglobin 32.4 % 33.9 % 33.0 % 33.5 % Concent Red Cell Distribution Width 15.2 % 14.7 % 15.0 % 15.2 % Platelet Count 199 TH/MM3 160 TH/MM3 160 TH/MM3 124 TH/MM3 Mean Platelet Volume 10.3 FL 8.4 FL 8.7 FL 9.1 FL Neutrophils (%) (Auto) 87.3 % 81.6 % 79.2 % Lymphocytes (%) (Auto) 5.9 % 10.6 % 10.8 % Monocytes (%) (Auto) 6.5 % 7.7 % 9.8 % Eosinophils (%) (Auto) 0.0 % 0.0 % 0.1 % Basophils (%) (Auto) 0.3 % 0.1 % 0.1 % Neutrophils # (Auto) 13.7 TH/MM3 10.3 TH/MM3 7.9 TH/MM3 Lymphocytes # (Auto) 0.9 TH/MM3 1.3 TH/MM3 1.1 TH/MM3 Monocytes # (Auto) 1.0 TH/MM3 1.0 TH/MM3 1.0 TH/MM3 Eosinophils # (Auto) 0.0 TH/MM3 0.0 TH/MM3 0.0 TH/MM3 Basophils # (Auto) 0.0 TH/MM3 0.0 TH/MM3 0.0 TH/MM3 CBC Comment DIFF FINAL DIFF FINAL DIFF FINAL Differential Comment Laboratory Tests Test 3/2911/19/16 11/19/16 11/19/16 17:00 20:50 22:30 22:45 Sodium Level 133 MEQ/L 140 MEQ/L 145 MEQ/L Potassium Level 4.3 MEQ/L 3.6 MEQ/L 3.4 MEQ/L Chloride Level 97 MEQ/L 109 MEQ/L 115 MEQ/L Carbon Dioxide Level 10.6 MEQ/L 11.8 MEQ/L 15.9 MEQ/L Anion Gap 25 MEQ/L 19 MEQ/L 14 MEQ/L Blood Urea Nitrogen 42 MG/DL 44 MG/DL 42 MG/DL Creatinine 2.68 MG/DL 2.57 MG/DL 2.54 MG/DL Estimat Glomerular Filtration 17 ML/MIN 18 ML/MIN 18 ML/MIN Rate Random Glucose 957 MG/DL 716 MG/DL 493 MG/DL Lactic Acid Level 3.7 mmol/L 2.2 mmol/L Calcium Level 9.2 MG/DL 8.5 MG/DL 8.4 MG/DL Magnesium Level 2.7 MG/DL 2.3 MG/DL Total Bilirubin 1.0 MG/DL Aspartate Amino Transf 46 U/L (AST/SGOT) Alanine Aminotransferase 23 U/L (ALT/SGPT) Alkaline Phosphatase 99 U/L Total Creatine Kinase 1774 U/L Creatine Kinase MB 18.1 NG/ML Creatine Kinase MB % 1.0 % Troponin I 0.51 NG/ML 3.54 NG/ML Total Protein 7.6 GM/DL Albumin 3.7 GM/DL Hemoglobin A1c 18.7 % Phosphorus Level 1.1 MG/DL Test 11/20/16 11/20/16 11/20/16 11/20/16 01:20 02:00 05:29 10:02 Lactic Acid Level 3.0 mmol/L 2.0 mmol/L 1.6 mmol/L Total Creatine Kinase 6385 U/L 6901 U/L Creatine Kinase MB 48.4 NG/ML 49.7 NG/ML Creatine Kinase MB % 0.8 % 0.7 % Sodium Level 151 MEQ/L Potassium Level 3.2 MEQ/L Chloride Level 123 MEQ/L Carbon Dioxide Level 17.8 MEQ/L Anion Gap 10 MEQ/L Blood Urea Nitrogen 44 MG/DL Creatinine 2.56 MG/DL Estimat Glomerular Filtration 18 ML/MIN Rate Random Glucose 55 MG/DL Calcium Level 8.7 MG/DL Phosphorus Level 1.1 MG/DL Magnesium Level 2.2 MG/DL Total Bilirubin 0.6 MG/DL Aspartate Amino Transf 195 U/L (AST/SGOT) Alanine Aminotransferase 46 U/L (ALT/SGPT) Alkaline Phosphatase 72 U/L Troponin I 7.81 NG/ML Total Protein 6.2 GM/DL Albumin 3.0 GM/DL Test 11/20/16 11/20/16 11/20/16 11/21/16 11:36 13:50 17:49 03:19 Sodium Level 148 MEQ/L 150 MEQ/L 153 MEQ/L Potassium Level 4.1 MEQ/L 3.3 MEQ/L 3.3 MEQ/L Chloride Level 123 MEQ/L 124 MEQ/L 127 MEQ/L Carbon Dioxide Level 14.9 MEQ/L 14.6 MEQ/L 14.8 MEQ/L Anion Gap 10 MEQ/L 11 MEQ/L 11 MEQ/L Blood Urea Nitrogen 45 MG/DL 47 MG/DL 53 MG/DL Creatinine 2.56 MG/DL 3.09 MG/DL 3.48 MG/DL Estimat Glomerular Filtration 18 ML/MIN 15 ML/MIN 13 ML/MIN Rate Random Glucose 261 MG/DL 290 MG/DL 56 MG/DL Calcium Level 8.2 MG/DL 8.2 MG/DL 8.4 MG/DL Phosphorus Level 2.8 MG/DL 1.9 MG/DL Magnesium Level 2.1 MG/DL 2.1 MG/DL 2.0 MG/DL Troponin I 5.58 NG/ML Lactic Acid Level 1.6 mmol/L 1.9 mmol/L Thyroid Stimulating Hormone 1.610 uIU/ML 3rd Gen Total Bilirubin 0.5 MG/DL Aspartate Amino Transf 185 U/L (AST/SGOT) Alanine Aminotransferase 58 U/L (ALT/SGPT) Alkaline Phosphatase 69 U/L Total Protein 5.8 GM/DL Albumin 2.5 GM/DL 25-Hydroxy Vitamin D Total 18.5 ng/ML Microbiology Date/Time Procedure Status Source Growth 11/19/16 17:00 Aerobic Blood Culture - Preliminary Resulted Blood Peripheral NO GROWTH IN 2 DAYS 11/19/16 17:00 Anaerobic Blood Culture - Preliminary Resulted Blood Peripheral NO GROWTH IN 2 DAYS 11/19/16 17:00 Urine Culture - Final Complete Urine Catheterized Urine NO GROWTH IN 48 HOURS. 11/19/16 17:05 Aerobic Blood Culture - Preliminary Resulted Blood Peripheral NO GROWTH IN 2 DAYS 3/29/17 17:05 Anaerobic Blood Culture - Preliminary Resulted Blood Peripheral NO GROWTH IN 2 DAYS 11/19/16 20:20 Influenza Types A,B Antigen (RAY) - Final Complete Nasal Aspirate NEGATIVE FOR FLU A AND B ANTIGEN.... IMAGING: Chest X-Ray 11/21/16 0600 Signed Impressions: Service Date/Time: Monday, November 21, 2016 04:32 - CONCLUSION: Rotated and underinflated examination with new mild bibasilar opacity representing either atelectasis or consolidation. Edmond Valdez MD Pelvis X-Ray 11/19/16 0000 Signed Impressions: Service Date/Time: Saturday, November 19, 2016 18:23 - CONCLUSION: 1. Moderate degenerative changes involving the hip joints bilaterally. 2. Degenerative changes involving the lower lumbar spine. 3. No acute fracture or dislocation. Joey Rosenthal MD Head CT 11/19/16 0000 Signed Impressions: Service Date/Time: Saturday, November 19, 2016 17:54 - CONCLUSION: No acute disease. Joey Rosenthal MD Cervical Spine CT 11/19/16 0000 Signed Impressions: Service Date/Time: Saturday, November 19, 2016 17:54 - CONCLUSION: 1. Extensive motion artifact particularly at C3 and C4 levels which limits interpretation of these levels. 2. Grade I retrolisthesis of C3 in relation to C4 and C2 as well as C4 in relation to C5. 3. Diffuse cervical spondylosis at C5-C6, C6- C7 and to a lesser extent at C4-C5 and C3-C4. 4. No acute fracture or prevertebral soft-tissue swelling. 5. Mild spinal stenosis at C5-C6. 6. Mild bilateral foraminal narrowing at C5-C6 and C6-C7 and to a lesser extent at C4- C5 and C3-C4. 7. Reversal of the normal cervical lordosis. Joey Rosenthal MD PHYSICAL EXAMINATION: IN GENERAL: No acute distress. Alert and awake. HEAD, EYES, EARS, NOSE, AND THROAT: The head is atraumatic. Extraocular movements appear grossly intact. Pupils are constricted. Oropharynx: mucosa is dry. NECK: Supple. No adenopathy. No tenderness on palpation. LUNGS: Clear decreased breath sounds. HEART: Regular rate and rhythm. No murmurs, rubs or gallops. ABDOMEN: Bowel sounds present, soft, no tenderness appreciated. EXTREMITIES: No clubbing or cyanosis or edema. SKIN: No rash. NEUROLOGIC: No gross focal findings. PSYCHIATRIC: Calm and cooperative. IMPRESSION 1. Sepsis in patient who presented with fever, tachycardia, leukocytosis, a lactic acidosis and altered mental status. Also the patient presented with acute kidney injury and DKA. 2. Altered mental status. Improved. Appears back to baseline. 3. Multiple antibiotic allergies. 4. HIV disease 5. Leukocytosis. Improved. RECOMMENDATIONS 1. Continue meropenem. 2. Continue HIV meds. 3. Monitor clinical status. 4. Monitor blood cultures. 5. Follow CXR. 6. Consider stopping antibiotics if cultures remain negative. I will be off until 11/22. Other ID MD covering in my absence. Anjel Sharp MD Nov 21, 2016 12:31
--- NOTE | 2016-11-21 14:05 | HHI.NPPN ---
Subjective History of Present Illness This patient is a 76-year-old female. Patient is a poor historian and history primarily obtained from the records. According to the records I reviewed the patient has a history of diabetes mellitus, hypertension as well as HIV. Infectious disease is currently in consultation as well as critical care. The patient was admitted to this institution on November 19, 2016 after being found "down" in her apartment. On presentation to the hospital she was noted to have a blood sugar of 957 with a creatinine of 2.68 and initially a sodium of 133 as well as a total CO2 on BMP of 10.6. Beta hydroxybutyrate was elevated. Patient has been treated for DKA and serum sodium level as expected has increased as a glucose level has dropped. Creatinine level is slightly improved today at 2.56. There is also evidence of rhabdomyolysis on presentation with significantly elevated CK level and a urinalysis positive for large amount of blood but minimal rbc. Of interest patient was taking Crestor as an outpatient. Interval History Patient appears to be more alert this morning and cognitive. She was counseled regarding etiology of her acute renal failure current status. No verbal complaints. Review of Systems General Constitutional: Fatigue Objective Data Data 11/20/16 11/21/16 19:00 07:00 Intake Total 2127 ml 1707 ml Output Total 300 ml 300 ml Balance 1827 ml 1407 ml Intake Oral 360 ml IV Total 2127 ml 1347 ml Output Urine Total 300 ml 300 ml # Bowel Movements 0 Vital Signs Date Time Temp Pulse Resp B/P Pulse Ox O2 Delivery O2 Flow Rate FiO2 11/21/16 12:00 96 11/21/16 10:00 95 11/21/16 08:18 96 Nasal Cannula 1.50 11/21/16 08:00 98 11/21/16 06:00 93 11/21/16 04:00 92 11/21/16 04:00 98.1 92 22 135/60 100 11/21/16 02:00 90 11/21/16 00:00 90 11/21/16 00:00 98.0 90 20 119/57 99 11/20/16 22:00 91 11/20/16 21:00 74 20 145/66 100 11/20/16 20:51 97 Nasal Cannula 1.50 11/20/16 20:10 74 11/20/16 20:00 98.3 138 24 99/55 100 11/20/16 20:00 138 11/20/16 18:00 74 11/20/16 16:00 98.2 90 17 108/55 93 11/20/16 16:00 72 -: 11/21/16 0319 11/21/16 0319 Medication Review Current Medications Sodium Chloride (NS 1000 ml Inj) 1,000 ml @ 2,000 mls/hr Q30M ONCE IV Last administered on 11/19/16 17:16; Start 11/19/16 at 17:26; Stop 11/19/16 at 17:55 ; Status DC Sodium Chloride 2 ml 2 ml UNSCH PRN IVF FLUSH AFTER USING IV ACCESS Last administered on 11/19/16 18:58; Start 11/19/16 at 17:00 Vancomycin HCl 1000 mg/Sodium Chloride 250 ml @ 250 mls/hr ONCE ONCE IV Last administered on 11/19/16 20:03; Start 11/19/16 at 17:30; Stop 11/19/16 at 18:29 ; Status DC Aztreonam 2000 mg/ Sodium Chloride 100 ml @ 200 mls/hr ONCE STAT IV Last administered on 11/19/16 20:56; Start 11/19/16 at 17:20; Stop 11/19/16 at 17:49 ; Status DC Metronidazole (Flagyl 500 Mg Inj) 100 ml @ 100 mls/hr ONCE STAT IV Last administered on 11/19/16 17:44; Start 11/19/16 at 17:20; Stop 11/19/16 at 18:19 ; Status DC Acetaminophen 650 mg 650 mg ONCE ONCE RECTAL Last administered on 11/19/16 17 :44; Start 11/19/16 at 17:30; Stop 11/19/16 at 17:31; Status DC Sodium Chloride 1,000 ml @ 250 mls/hr Q4H IV Last administered on 11/20/16 06 :33; Start 11/19/16 at 18:33; Stop 11/21/16 at 10:31; Status DC Dextrose/Sodium Chloride (D5W-NS 1000 ml Inj) 1,000 ml @ 120 mls/hr Q8H20M IV Last administered on 11/20/16 04:33; Start 11/19/16 at 18:33; Stop 11/21/16 at 10:31; Status DC Insulin Human Regular 5 units 5 units BOLUS ONCE IV PUSH Last administered on 11/19/16 18:58; Start 11/19/16 at 18:45; Stop 11/19/16 at 18:46; Status DC Insulin Human Regular 100 units/ Sodium Chloride 100 ml @ 0 mls/hr TITRATE IV Last administered on 11/19/16 19:39; Start 11/19/16 at 18:45; Stop 11/20/16 at 08:33; Status DC Potassium Chloride 100 ml @ 100 mls/hr Q1H PRN IV SEE LABEL COMMENTS; Start at 18:45; Stop 11/21/16 at 10:31; Status DC Potassium Chloride 100 ml @ 50 mls/hr Q2H PRN IV SEE LABEL COMMENTS; Start at 18:45; Stop 11/21/16 at 10:31; Status DC Potassium Chloride 100 ml @ 100 mls/hr Q1H PRN IV SEE LABEL COMMENTS; Start at 18:45; Stop 11/21/16 at 10:31; Status DC Potassium Chloride 100 ml @ 100 mls/hr Q1H PRN IV SEE LABEL COMMENTS; Start at 18:45; Stop 11/21/16 at 10:31; Status DC Potassium Chloride 100 ml @ 50 mls/hr Q2H PRN IV SEE LABEL COMMENTS; Start at 18:45; Stop 11/21/16 at 10:31; Status DC Potassium Chloride 100 ml @ 50 mls/hr Q2H PRN IV SEE LABEL COMMENTS; Start at 18:45; Stop 11/21/16 at 10:31; Status DC Potassium Chloride 100 ml @ 50 mls/hr Q2H PRN IV SEE LABEL COMMENTS Last administered on 11/20/16 00:18; Start 11/19/16 at 18:45; Stop 11/21/16 at 10:31 ; Status DC Potassium Chloride (KCl 20 Meq Premix Inj) 100 ml @ 50 mls/hr Q2H PRN IV SEE LABEL COMMENTS; Start 11/19/16 at 18:45; Stop 11/20/16 at 13:53; Status DC Sodium Bicarbonate (Sodium Bicarbonate 8.4% Inj) 100 meq UNSCH PRN IV SEE LABEL COMMENTS; Start 11/19/16 at 18:45 Sodium Bicarbonate 50 meq 50 meq UNSCH PRN IV SEE LABEL COMMENTS; Start at 18:45 Sodium Phosphate 15 mmol/Sodium Chloride 105 ml @ 25 mls/hr UNSCH PRN IV SEE LABEL COMMENTS; Start 11/19/16 at 18:45; Stop 11/21/16 at 10:31; Status DC Pharmacy Profile Note (Vancomycin Consult Pharmacy) 0 ml @ 0 mls/hr UNSCH OTHER ; Start 11/19/16 at 22:30 Miscellaneous Medication (ASP Crit: Doc allergy to Penicillin/ Cephalosp) 1 UNSCH X1 PRN .XX PHARMACY DOCUMENTATION; Start 11/19/16 at 22:45; Stop at 22:44; Status DC Miscellaneous Medication 1 1 UNSCH X1 PRN XX PHARMACY DOCUMENTATION; Start at 22:45; Stop 11/20/16 at 22:44; Status DC Meropenem/Sodium Chloride (Merrem Inj/NS Inj) 100 ml @ 200 mls/hr Q12H IV Last administered on 11/20/16 12:23; Start 11/20/16 at 00:00; Stop 11/20/16 at 15:05; Status DC Aspirin (Aspirin Supp) 300 mg ONCE ONCE RECTAL Last administered on 11/20/16 08:57; Start 11/20/16 at 01:45; Stop 11/20/16 at 01:48; Status DC Pantoprazole Sodium (Protonix Inj) 40 mg DAILY IV Last administered on 08:49; Start 11/20/16 at 09:00 Ondansetron HCl (Zofran Inj) 4 mg Q6H PRN IV NAUSEA OR VOMITING Last administered on 11/21/16 08:57; Start 11/20/16 at 04:15 Albuterol/ Ipratropium (Duoneb Neb) 1 ampule Q6HR NEB INH Last administered on 11/21/16 08:18; Start 11/20/16 at 10:00 Albuterol Sulfate (Albuterol Neb) 2.5 mg Q2HR NEB PRN INH SOB/WHEEZING; Start 11/20/16 at 04:15 Miscellaneous Information 1 Q361D XX ; Start 11/20/16 at 04:15 Chlorhexidine Gluconate (Chlorhexidine 2% Cloth) 3 pack Taper DAILY@04 TOP Last administered on 11/21/16 04:00; Start 11/21/16 at 04:00; Stop 11/17/17 at 03:59 Chlorhexidine Gluconate 3 pack 3 pack UNSCH PRN TOP HYGIENIC CARE; Start at 04:15 Potassium Phosphate/Sodium Chloride (Potassium Phosphate Inj/NS 250 ml Inj) 260 ml @ 43.333 mls/ hr ONCE ONCE IV Last administered on 11/20/16 05:48; Start 11/20/16 at 04:30; Stop 11/21/16 at 10:31; Status DC Nystatin (Mycostatin Cream) 1 applic Q12HR TOPICAL Last administered on 08:58; Start 11/20/16 at 09:00 Dextrose 50 ml 50 ml STK-MED ONCE .ROUTE ; Start 11/20/16 at 07:01; Stop at 07:02; Status DC Heparin Sodium/ Dextrose (Heparin-D5W Inj) 250 ml @ 0 mls/hr TITRATE IV Last administered on 11/20/16 08:47; Start 11/20/16 at 07:00 Miscellaneous Medication ([facility] Information) Please discontinue previ... ONCE ONCE .XX ; Start 11/20/16 at 08:45; Stop 11/20/16 at 08:46; Status DC Dextrose (D50w (Vial) Inj) 25 ml UNSCH PRN IV PUSH HYPOGLYCEMIA - SEE COMMENTS ; Start 11/20/16 at 08:45; Stop 11/20/16 at 13:53; Status DC Glucagon (Glucagon Inj) 1 mg UNSCH PRN OTHER HYPOGLYCEMIA-SEE COMMENTS; Start 11/20/16 at 08:45; Stop 11/20/16 at 13:53; Status DC Insulin Aspart (NovoLOG SUPPLEMENTAL SCALE) 1 Q4H SQ Last administered on 12:00; Start 11/20/16 at 08:00; Stop 11/20/16 at 13:53; Status DC Insulin Detemir (Levemir Inj) 10 units Q12HR SQ Last administered on 11/20/16 20:16; Start 11/20/16 at 13:30; Stop 11/21/16 at 10:31; Status DC Clopidogrel Bisulfate (Plavix) 75 mg DAILY PO Last administered on 11/21/16 08 :49; Start 11/21/16 at 09:00 Aspirin 81 mg 81 mg DAILY CHEW Last administered on 11/21/16 08:49; Start at 09:00 Sodium Chloride 1,000 ml @ 125 mls/hr Q8H IV Last administered on 11/20/16 20 :45; Start 11/20/16 at 15:00; Stop 11/21/16 at 10:31; Status DC Meropenem/Sodium Chloride (Merrem Inj/NS Inj) 100 ml @ 200 mls/hr Q12H IV Last administered on 11/21/16 12:22; Start 11/21/16 at 00:00 Dextrose (D50w (Vial) Inj) 25 ml UNSCH PRN IV PUSH HYPOGLYCEMIA - SEE COMMENTS ; Start 11/20/16 at 17:00 Glucagon (Glucagon Inj) 1 mg UNSCH PRN OTHER HYPOGLYCEMIA-SEE COMMENTS; Start 11/20/16 at 17:00 Insulin Aspart 1 1 Q4HR SQ Last administered on 11/21/16 12:00; Start at 16:00 Vancomycin HCl 1000 mg/Sodium Chloride 250 ml @ 250 mls/hr ONCE ONCE IV Last administered on 11/21/16 08:58; Start 11/21/16 at 09:00; Stop 11/21/16 at 09:59 ; Status DC Sodium Bicarbonate/ Sodium Chloride (Sodium Bicarbonate 8.4% Inj/1/2 NS 1000 ml Inj) 1,075 ml @ 75 mls/hr [id number] IV ; Start 11/21/16 at 11:30 Physical Exam General Appearance: No Acute Distress, Comfortable, Pale, Malnourished Pulmonary Resp Exam: Clear Bilaterally, Breath Sounds Equal, No Distress Cardiology CV Exam: Regular, Normal Sinus Rhythm Integumentary Skin Exam: Clear, Warm Extremeties Extremities Exam: No Edema Neurologic Neuro Exam: Alert, Awake, Speech Clear, Moving All Extremities Assessment/Plan Discussed Condition With: Patient Problem List: (1) PRATIMA (acute kidney injury) Plan: Patient's renal indices were initially improving however have deteriorated today. I believe that the patient has sustained significant injury to the kidney secondary to rhabdomyolysis and or ATN. Continue IV fluids with added sodium bicarbonate at current rate. Repeat renal panel a.m. Medications should be adjusted for the patient's estimated GFR if clinically indicated. Avoid agents with significant potential for nephrotoxicity possible including NSAIDs for analgesia, iodine contrast agents. Gadolinium is contraindicated if the GFR is below 30. (2) Rhabdomyolysis Plan: Most likely secondary to compression injury while patient was on the floor. Patient was on a statin drug i.e. Crestor so uncertain to what degree this may have played a role also. (3) Sepsis Plan: Infectious disease following. (4) CKD (chronic kidney disease) stage 3, GFR 30-59 ml/min Plan: Secondary to nephrosclerosis of hypertension and aging. (5) Metabolic acidosis Plan: Most likely related to diabetic ketoacidosis although there may be a component related to renal insufficiency also. Diabetic ketoacidosis should self corrects with improvement in blood sugar and renal perfusion. Agree with added sodium bicarbonate IV. (6) Vitamin D deficiency Plan: Vitamin D supplementation as ordered. Mario Valdes MD Nov 21, 2016 14:05
--- NOTE | 2016-11-21 14:11 | PD.CARD.PN ---
Subjective Subjective Remarks Patient is awake and alert today. Had some afib RVR noted on telemetry. Plts trending down. The patient states that she has recently had increased SOB associated with productive cough with whitish sputum and pain in her chest when she takes a deep breath in . Device was interrogated. No arrhythmia to correlate with recent unresponsive episode. Objective Medications Current Medications Medications (Trade) Dose Ordered Sig/Francesca Route Start Time Stop Time Status Last Admin (NS Flush) 2 ml UNSCH PRN IVF 11/19/16 17:00 11/19/16 18:58 (Sodium Bicarbonate 8.4% Inj) 100 meq UNSCH PRN IV 11/19/16 18:45 Sodium Bicarbonate 50 meq 50 meq UNSCH PRN IV 11/19/16 18:45 (Vancomycin Consult Pharmacy) 0 ml @ 0 mls/hr UNSCH OTHER 11/19/16 22:30 (Protonix Inj) 40 mg DAILY IV 11/20/16 09:00 11/21/16 08:49 (Zofran Inj) 4 mg Q6H PRN IV 11/20/16 04:15 11/21/16 08:57 Miscellaneous Information 1 Q361D XX 11/20/16 04:15 (Chlorhexidine 2% Cloth) 3 pack Taper DAILY@04 TOP 11/21/16 04:00 11/17/17 03:59 11/21/16 04:00 (Chlorhexidine 2% Cloth) 3 pack UNSCH PRN TOP 11/20/16 04:15 Nystatin 1 applic 1 applic Q12HR TOPICAL 11/20/16 09:00 11/21/16 08:58 (Heparin-D5W Inj) 250 ml @ 0 mls/hr TITRATE IV 11/20/16 07:00 11/20/16 08:47 (Plavix) 75 mg DAILY PO 11/21/16 09:00 11/21/16 08:49 Aspirin 81 mg 81 mg DAILY CHEW 11/21/16 09:00 11/21/16 08:49 (Merrem Inj/NS Inj) 100 ml @ 200 mls/hr Q12H IV 11/21/16 00:00 11/21/16 12:22 (D50w (Vial) Inj) 25 ml UNSCH PRN IV PUSH 11/20/16 17:00 (Glucagon Inj) 1 mg UNSCH PRN OTHER 11/20/16 17:00 Insulin Aspart 1 1 Q4HR SQ 11/20/16 16:00 11/21/16 12:00 (Sodium Bicarbonate 8.4% Inj/1/2 NS 1000 ml Inj) 1,075 ml @ 75 mls/hr [id number] IV 11/21/16 11:30 Vital Signs / I&O Vital Signs Date Time Temp Pulse Resp B/P Pulse Ox O2 Delivery O2 Flow Rate FiO2 11/21/16 12:00 96 11/21/16 10:00 95 11/21/16 08:18 96 Nasal Cannula 1.50 11/21/16 08:00 98 11/21/16 06:00 93 11/21/16 04:00 92 11/21/16 04:00 98.1 92 22 135/60 100 11/21/16 02:00 90 11/21/16 00:00 90 11/21/16 00:00 98.0 90 20 119/57 99 11/20/16 22:00 91 11/20/16 21:00 74 20 145/66 100 11/20/16 20:51 97 Nasal Cannula 1.50 11/20/16 20:10 74 11/20/16 20:00 98.3 138 24 99/55 100 11/20/16 20:00 138 11/20/16 18:00 74 11/20/16 16:00 98.2 90 17 108/55 93 11/20/16 16:00 72 11/20/16 14:00 71 I/O 11/20/16 11/20/16 11/20/16 11/21/16 11/21/16 11/21/16 07:00 15:00 23:00 07:00 15:00 23:00 Intake Total 979 ml 2127 ml 795 ml 912 ml Output Total 100 ml 300 ml 150 ml 150 ml Balance 879 ml 1827 ml 645 ml 762 ml Intake Oral 240 ml 120 ml IV Total 979 ml 2127 ml 555 ml 792 ml Output Urine Total 100 ml 300 ml 150 ml 150 ml # Bowel Movements 0 0 Physical Exam GENERAL: Elderly female, awake and oriented. SKIN: Warm and dry. ecchymosis left arm HEAD: Normocephalic. EYES: No scleral icterus. No injection or drainage. NECK: Supple, trachea midline. CARDIOVASCULAR: Regular rate and rhythm without murmurs, gallops, or rubs. RESPIRATORY: Breath sounds equal bilaterally. No accessory muscle use. GASTROINTESTINAL: Abdomen soft, non-tender, nondistended. MUSCULOSKELETAL: No cyanosis, or edema. BACK: Nontender without obvious deformity. Laboratory Laboratory Tests Test 11/20/16 11/20/16 11/20/16 11/21/16 17:43 17:49 21:47 03:19 Activated Partial 33.2 SEC 37.3 SEC 44.2 SEC Thromboplast Time Sodium Level 150 MEQ/L 153 MEQ/L Potassium Level 3.3 MEQ/L 3.3 MEQ/L Chloride Level 124 MEQ/L 127 MEQ/L Carbon Dioxide Level 14.6 MEQ/L 14.8 MEQ/L Anion Gap 11 MEQ/L 11 MEQ/L Blood Urea Nitrogen 47 MG/DL 53 MG/DL Creatinine 3.09 MG/DL 3.48 MG/DL Estimat Glomerular Filtration 15 ML/MIN 13 ML/MIN Rate Random Glucose 290 MG/DL 56 MG/DL Lactic Acid Level 1.9 mmol/L Calcium Level 8.2 MG/DL 8.4 MG/DL Phosphorus Level 1.9 MG/DL Magnesium Level 2.1 MG/DL 2.0 MG/DL Thyroid Stimulating Hormone 1.610 uIU/ML 3rd Gen B-Hydroxybutyrate 0.24 MMOL/L White Blood Count 10.0 TH/MM3 Red Blood Count 4.17 MIL/MM3 Hemoglobin 11.4 GM/DL Hematocrit 34.0 % Mean Corpuscular Volume 81.4 FL Mean Corpuscular Hemoglobin 27.3 PG Mean Corpuscular Hemoglobin 33.5 % Concent Red Cell Distribution Width 15.2 % Platelet Count 124 TH/MM3 Mean Platelet Volume 9.1 FL Neutrophils (%) (Auto) 79.2 % Lymphocytes (%) (Auto) 10.8 % Monocytes (%) (Auto) 9.8 % Eosinophils (%) (Auto) 0.1 % Basophils (%) (Auto) 0.1 % Neutrophils # (Auto) 7.9 TH/MM3 Lymphocytes # (Auto) 1.1 TH/MM3 Monocytes # (Auto) 1.0 TH/MM3 Eosinophils # (Auto) 0.0 TH/MM3 Basophils # (Auto) 0.0 TH/MM3 CBC Comment DIFF FINAL Differential Comment Total Bilirubin 0.5 MG/DL Aspartate Amino Transf 185 U/L (AST/SGOT) Alanine Aminotransferase 58 U/L (ALT/SGPT) Alkaline Phosphatase 69 U/L Total Protein 5.8 GM/DL Albumin 2.5 GM/DL 25-Hydroxy Vitamin D Total 18.5 ng/ML Random Vancomycin Level 11.8 COMMENT Test 11/21/16 10:46 Activated Partial 43.4 SEC Thromboplast Time Imaging Last 72 hours Impressions Chest X-Ray 11/21/16 0600 Signed Impressions: Service Date/Time: Monday, November 21, 2016 04:32 - CONCLUSION: Rotated and underinflated examination with new mild bibasilar opacity representing either atelectasis or consolidation. Edmond Valdez MD Pelvis X-Ray 11/19/16 0000 Signed Impressions: Service Date/Time: Saturday, November 19, 2016 18:23 - CONCLUSION: 1. Moderate degenerative changes involving the hip joints bilaterally. 2. Degenerative changes involving the lower lumbar spine. 3. No acute fracture or dislocation. Joey Rosenthal MD Head CT 11/19/16 0000 Signed Impressions: Service Date/Time: Saturday, November 19, 2016 17:54 - CONCLUSION: No acute disease. Joey Rosenthal MD Chest X-Ray 11/19/16 0000 Signed Impressions: Service Date/Time: Saturday, November 19, 2016 18:40 - CONCLUSION: 1. Minimal patchiness within the left lung base consistent with atelectasis and/or mild infiltrate. Clinical correlation is recommended. Joey Rosenthal MD Cervical Spine CT 11/19/16 0000 Signed Impressions: Service Date/Time: Saturday, November 19, 2016 17:54 - CONCLUSION: 1. Extensive motion artifact particularly at C3 and C4 levels which limits interpretation of these levels. 2. Grade I retrolisthesis of C3 in relation to C4 and C2 as well as C4 in relation to C5. 3. Diffuse cervical spondylosis at C5-C6, C6- C7 and to a lesser extent at C4-C5 and C3-C4. 4. No acute fracture or prevertebral soft-tissue swelling. 5. Mild spinal stenosis at C5-C6. 6. Mild bilateral foraminal narrowing at C5-C6 and C6-C7 and to a lesser extent at C4- C5 and C3-C4. 7. Reversal of the normal cervical lordosis. Joey Rosenthal MD Assessment and Plan Assessment and Plan ASSESSMENT Elevated troponin and T-wave flattening in an elderly female with known history of ASHD with last negative cardiac PET 2014. She denies recently chest pain. She has had increased SOB likely due to pneumonia AMS/unconscious, found down. Work up reveals leukocytosis, lactic acidosis, DKA and rhabdomyolysis. Etiology of cause is not completely clear. ICD interrogation negative for acute arrhythmias Acute on chronic CKD due to above Atrial fibrillation with RVR since admission. Currently NSR. Was on Eliquis prior to admission. Hx atrial flutter s/p ablation Hx SVT s/p ICD. HTN HLD Mild to moderate carotid stenosis HIV PLAN Stop Heparin infusion. Start Heparin 5000 mg SQ. Will restart Eliquis if plts start to increase. Will start metoprolol 25 mg BID The patient is not a candidate for cardiac cath at this time due to renal function. Pending clinical course, will consider inpatient stress test to exclude new ischemia. Assessment and plan discussed with Mallory Jaimes Nov 21, 2016 14:11
[2016-11-21] MEDS: METOPROLOL TARTRATE 25 MG TAB PO SCH ×2 (16:40→20:09)
[2016-11-21] MEDS: CHOLECALCIFEROL (VIT D3) 1000 UNIT TAB PO SCH (16:40)
--- NOTE | 2016-11-21 18:22 | RADRPT ---
EXAM DATE/TIME: 11/21/2016 16:04 [facility] COMPARISON: No previous studies available for comparison. INDICATIONS : Abnormal labs. MEDICAL HISTORY : Hypercholesterolemia. Myocardial infarction. Methicillin-resistant Staphylococcus aureus. CHF. A-Fib. Hypertension. COPD. Dyspnea. Arthritis. SURGICAL HISTORY : CABG. Pacemaker. Tubal ligation. Hysterectomy. Cataract surgery. ENCOUNTER: Initial ACUITY: 2 days PAIN SCORE: 10/10 LOCATION: Abdomen. MEASUREMENTS: LIVER: 15.7 cm length COMMON DUCT: 11 mm RIGHT KIDNEY: 10.4 x 4.7x 4.8 cm LEFT KIDNEY: 9.4 x 3.5 x 4.3 cm SPLEEN: 11.5 cm length AORTA: Nonvisualized FINDINGS: There is poor visualization of the pancreas, abdominal aorta and inferior vena cava due to shadowing bowel gas. The liver is mildly enlarged. No focal hepatic mass is noted. There is hepatopetal flow within the portal vein. There is mild dilatation of the common bile duct which measures 11 mm in ca liber. Correlation with alkaline phosphatase and bilirubin levels is suggested to rule out biliary ob struction. The gallbladder contains multiple gallstones. The wall of the gallbladder is thickened. Minimal pericholecystic fluid is also noted. If there is clinical concern for acute cholecystitis a h epatobiliary scan may be helpful to confirm cystic duct obstruction. The kidneys demonstrate no hydr onephrosis, solid mass or stone. The spleen is normal in size. There is minimal ascites. A small r ight pleural effusion is also noted. CONCLUSION: 1. Dilated common bile duct measuring 11 mm. Correlation with alkaline phosphatase and bilirubin leve l is suggested to rule out biliary obstruction. 2. Thick-walled stone-containing gallbladder with minimal pericholecystic fluid. If there is clinica l concern for acute cholecystitis a hepatobiliary scan may be helpful to confirm cystic duct obstruct ion. 3. Mild hepatomegaly. 4. Small right pleural effusion. 5. Trace ascites. 6. Poor visualization of the pancreas, abdominal aorta and inferior vena cava secondary to shadowing bowel gas. Joey Rosenthal MD on November 21, 2016 at 18:07 Board Certified Radiologist. This report was verified electronically.
[2016-11-21] MEDS: HEPARIN SODIUM - SQ 10,000 UNITS/ML VIAL SQ SCH (20:09)
[2016-11-22] VITALS (18 sets, daily range): BP systolic 118–159; BP diastolic 55–71; PULSE 71–95; RESP 16–24; TEMP 98–98.6; O2SAT 94–100
[2016-11-22] MEDS: RESP: ALBUTEROL 2.5 MG/IPRATROPIUM 0.5 MG NEB (SCH) INH ×4 (03:53→20:34)
[2016-11-22] MEDS: MEDIUM DOSE INSULIN NOVOLOG SUPPLEMENTAL SCALE SQ SCH ×5 (04:00→20:00)
[2016-11-22 05:37] LABS: AUTOMATED NEUTROPHIL # 4.3 TH/MM3 (1.8-7.7); BASOPHIL % 0.3 % (0.0-2.0); EOSINOPHIL % 0.5 % (0.0-4.0); HEMATOCRIT 30.6 % (35.0-46.0); LYMPH % 13.8 % (9.0-44.0); LYMPHOCYTE # 0.7 TH/MM3 (1.0-4.8); MEAN CELL VOLUME 82.9 FL (80.0-100.0); MEAN CORPUSCULAR HEMOGLOBIN 27.2 PG (27.0-34.0); MEAN CORPUSCULAR HGB CONC 32.8 % (32.0-36.0); MONO % 6.4 % (0.0-8.0); PLATELET COUNT 79 TH/MM3 (150-450); RED BLOOD COUNT 3.69 MIL/MM3 (4.00-5.30); RED CELL DISTRIBUTION WIDTH 15.6 % (11.6-17.2); WHITE BLOOD COUNT 5.4 TH/MM3 (4.0-11.0)
[2016-11-22 05:41] LABS: HEMO FLAGS AUTO DIFF
[2016-11-22 05:52] LABS: APTT (PATIENT) 31.3 SEC (24.3-30.1)
[2016-11-22 06:04] LABS: ALKALINE PHOSPHATASE 68 U/L (45-117); ALT (GPT) 45 U/L (10-53); ANION GAP 16 MEQ/L (5-15); AST (GOT) 100 U/L (15-37); BICARBONATE 12.5 MEQ/L (21.0-32.0); BLOOD UREA NITROGEN 66 MG/DL (7-18); CHLORIDE 121 MEQ/L (98-107); GLOMERULAR FILTRATION RATE 9 ML/MIN (>89); POTASSIUM 3.8 MEQ/L (3.5-5.1); SODIUM (NA) 149 MEQ/L (136-145); TOTAL BILIRUBIN ADULT 0.7 MG/DL (0.2-1.0)
[2016-11-22 08:03] LABS: PLATELET ESTIMATE SMEAR LOW (NORMAL); PLATELET MORPHOLOGY NORMAL (NORMAL); SCAN/DIFF AUTO DIFF CONFIRMED
[2016-11-22] MEDS: CHOLECALCIFEROL (VIT D3) 1000 UNIT TAB PO SCH (08:35)
[2016-11-22] MEDS: METOPROLOL TARTRATE 25 MG TAB PO SCH ×2 (08:35→21:39)
[2016-11-22] MEDS: CLOPIDOGREL 75 MG TAB PO SCH (08:35)
[2016-11-22] MEDS: HEPARIN SODIUM - SQ 10,000 UNITS/ML VIAL SQ SCH ×2 (08:36→21:00)
[2016-11-22] MEDS: ASPIRIN 81 MG CHEW TAB CHEW SCH (08:36)
[2016-11-22] MEDS: PANTOPRAZOLE SODIUM 40 MG VIAL IV SCH (08:36)
[2016-11-22] MEDS: NYSTATIN 100,000 UNIT/GM CREAM 15 GM TOPICAL SCH ×2 (09:00→21:40)
--- NOTE | 2016-11-22 11:35 | HHI.CCPN ---
Subjective Remarks/Hospital Course 76-year-old female, [facility] resident, with past medical history of diabetes, hypertension, COPD, atrial fibrillation on chronic anticoagulation with Eliquis, coronary artery disease with prior 3 vessel CABG, ICD placement due to V tach, who is brought into [facility] emergency department after she was found down in her apartment with glucose reading "high" with AMS. Patient not able to provide history. Her neighbor says she last saw her 24 hours prior. She is in DKA, acute rhabdomyolysis, PRATIMA overlying CKD stage III, febrile with WBC 15.7, and lactic acidemia. CT brain is negative. U/a with rare bacteria. CXR with LLL infiltrate. Has multiple abx allergies and is noted to have allergies to some HIV meds??? Received aztreonam, vancomycin, flagyl, 1 L NS bolus and was started on DKA protocol in the ED. Her friend states she has been very depressed lately after the of her son 1-2 months ago. She has been taking nitroglycerin sublingual frequently. She has been admitted in the past in January 2016 for DKA when she decided to quit taking insulin. SUBJ 11/10/16: Blood sugar better controlled and 150s. IV insulin discontinued and sliding scale started. Patient is more awake and following commands alert. Troponin trending down. 2-D echo shows no wall motion abnormalities but mild to moderate MR, EF 45-50%. Creatinine remains elevated at 2.56 urine output 1.3 L since admission to ICU 11/21 Patient is lying in bed in NAD. Afebrile. On Heparin drip. Afebrile. Renal function worse today with Cr: 3.48 from 3.05 and UO;600ml in 24 hrs. 11/22 No acute events overnight, off heparin drip renal function worse today with Cr: 4.65 from 3.48 and UO: 550 ml in 24 hrs Objective Vital Signs Date Time Temp Pulse Resp B/P Pulse Ox O2 Delivery O2 Flow Rate FiO2 11/22/16 10:00 95 11/22/16 08:26 98 Nasal Cannula 2.00 11/22/16 08:00 98.1 22 140/59 Intake and Output 11/21/16 11/21/16 11/22/16 08:00 16:00 00:00 Intake Total 912 ml 820 ml 949 ml Output Total 150 ml 100 ml 250 ml Balance 762 ml 720 ml 699 ml Result Diagram: 11/22/16 0506 11/22/16 0506 Other Results Laboratory Tests Test 11/22/16 05:06 White Blood Count 5.4 TH/MM3 Red Blood Count 3.69 MIL/MM3 Hemoglobin 10.0 GM/DL Hematocrit 30.6 % Mean Corpuscular Volume 82.9 FL Mean Corpuscular Hemoglobin 27.2 PG Mean Corpuscular Hemoglobin 32.8 % Concent Red Cell Distribution Width 15.6 % Platelet Count 79 TH/MM3 Mean Platelet Volume 8.9 FL Neutrophils (%) (Auto) 79.0 % Lymphocytes (%) (Auto) 13.8 % Monocytes (%) (Auto) 6.4 % Eosinophils (%) (Auto) 0.5 % Basophils (%) (Auto) 0.3 % Neutrophils # (Auto) 4.3 TH/MM3 Lymphocytes # (Auto) 0.7 TH/MM3 Monocytes # (Auto) 0.3 TH/MM3 Eosinophils # (Auto) 0.0 TH/MM3 Basophils # (Auto) 0.0 TH/MM3 CBC Comment AUTO DIFF Differential Comment AUTO DIFF CONFIRMED Platelet Estimate LOW Platelet Morphology Comment NORMAL Activated Partial 31.3 SEC Thromboplast Time Sodium Level 149 MEQ/L Potassium Level 3.8 MEQ/L Chloride Level 121 MEQ/L Carbon Dioxide Level 12.5 MEQ/L Anion Gap 16 MEQ/L Blood Urea Nitrogen 66 MG/DL Creatinine 4.65 MG/DL Estimat Glomerular Filtration 9 ML/MIN Rate Random Glucose 190 MG/DL Calcium Level 7.9 MG/DL Total Bilirubin 0.7 MG/DL Aspartate Amino Transf 100 U/L (AST/SGOT) Alanine Aminotransferase 45 U/L (ALT/SGPT) Alkaline Phosphatase 68 U/L Total Protein 5.1 GM/DL Albumin 2.0 GM/DL Random Vancomycin Level 17.4 COMMENT Imaging Last Impressions Chest X-Ray 11/21/16 0600 Signed Impressions: Service Date/Time: Monday, November 21, 2016 04:32 - CONCLUSION: Rotated and underinflated examination with new mild bibasilar opacity representing either atelectasis or consolidation. Edmond Valdez MD Abdomen Ultrasound 11/21/16 0000 Signed Impressions: Service Date/Time: Monday, November 21, 2016 16:04 - CONCLUSION: 1. Dilated common bile duct measuring 11 mm. Correlation with alkaline phosphatase and bilirubin level is suggested to rule out biliary obstruction. 2. Thick-walled stone-containing gallbladder with minimal pericholecystic fluid. If there is clinical concern for acute cholecystitis a hepatobiliary scan may be helpful to confirm cystic duct obstruction. 3. Mild hepatomegaly. 4. Small right pleural effusion. 5. Trace ascites. 6. Poor visualization of the pancreas, abdominal aorta and inferior vena cava secondary to shadowing bowel gas. Joey Rosenthal MD Pelvis X-Ray 11/19/16 0000 Signed Impressions: Service Date/Time: Saturday, November 19, 2016 18:23 - CONCLUSION: 1. Moderate degenerative changes involving the hip joints bilaterally. 2. Degenerative changes involving the lower lumbar spine. 3. No acute fracture or dislocation. Joey Rosenthal MD Head CT 11/19/16 0000 Signed Impressions: Service Date/Time: Saturday, November 19, 2016 17:54 - CONCLUSION: No acute disease. Joey Rosenthal MD Cervical Spine CT 11/19/16 0000 Signed Impressions: Service Date/Time: Saturday, November 19, 2016 17:54 - CONCLUSION: 1. Extensive motion artifact particularly at C3 and C4 levels which limits interpretation of these levels. 2. Grade I retrolisthesis of C3 in relation to C4 and C2 as well as C4 in relation to C5. 3. Diffuse cervical spondylosis at C5-C6, C6- C7 and to a lesser extent at C4-C5 and C3-C4. 4. No acute fracture or prevertebral soft-tissue swelling. 5. Mild spinal stenosis at C5-C6. 6. Mild bilateral foraminal narrowing at C5-C6 and C6-C7 and to a lesser extent at C4- C5 and C3-C4. 7. Reversal of the normal cervical lordosis. Joey Rosenthal MD Objective Remarks GENERAL: Patient is lying in bed in NAD SKIN: Warm and dry. HEAD: Normocephalic. EYES: No scleral icterus. No injection or drainage. NECK: Supple, trachea midline. No JVD or lymphadenopathy. CARDIOVASCULAR: Regular rate and rhythm 2/6 systolic murmur apex. RESPIRATORY: Breath sounds equal bilaterally. No accessory muscle use. GASTROINTESTINAL: Abdomen soft, non-tender, nondistended. MUSCULOSKELETAL: No cyanosis, or edema. Neuro: Awake and alert A/P Assessment and Plan NEURO: Acute toxic metabolic encephalopathy - improving Dementia CT brain negative for acute abnormality 11/19/16 CT C-spine - grade I retrolisthesis C3 in relation C2 and C4 and C in relation Cf. Degenerative changes Monitor neuro status and avoid sedatives. RESP: COPD Continue with oxygen keep sat >92% Bronchodilators CV: NSTEMI h/o Atrial fibrillation h/o Vtach s/p pacemaker ICD h/o CAD and prior [place] Systolic heart failure Monitor HR and BP keep MAP>65mmHg On ASA 81mg daily, Plavix 75mg daily, Lopressor 25mg PO Q12, Off heparin drip Dr. bruner cardiology 11/19 F/u 2DEcho-NoWMA EF 45-50%. Dilated LA GI: Elevated LFT's ( trending down) 2000 ADA diet. Protonix 40 mg daily US abdomen: Dilated common bile duct measuring 11 mm. Thick-walled stone- containing gallbladder with minimal pericholecystic fluid. Mild hepatomegaly. Small right pleural effusion. FEN/RENAL: Acute kidney injury overlying CKD stage III Hypernatremia Lactic acidemia- Resolved Acute rhabdomyolysis Monitor renal function, I/O's, avoid nephrotoxins Cr: 4.65 today from 3.48, UO:550 ml in 24 hrs Renal-Dr. Valdes- IVF changed by Renal- D5W+3amps bicarb @100ml/hr Diurese with Bumex 1mg x1 ID: Leukocytosis HIV LLL community acquired vs aspiration Pneumonia Mari intertrigo Empirically treated with meropenem (history of PCN and cephalosporin allergy) and vancomycin. ID is following Sent influenza screen, negative F/u blood and urine cultures. Nystatin apply affected area HEME: Monitor CBC, check Hep PLT ab ENDO: DKA On SSI( medium scale) PROPH: Heparin SQ for DVT prophylaxis. Protonix 40 mg IV daily ACCESS: PIV providing adequate access at this time. Will sign off and transfer care to [facility] Level 3 Corine Davis MD Nov 22, 2016 11:35
[2016-11-22] MEDS ORDERED: BUMETANIDE INJ 1 MG/4 ML VIAL IV PUSH ONE (11:45)
[2016-11-22] MEDS: NS IV SCH ×2 (12:04)
[2016-11-22] MEDS: MEROPENEM IV SCH ×2 (12:04)
--- NOTE | 2016-11-22 12:24 | HHI.NPPN ---
Subjective History of Present Illness This patient is a 76-year-old female. Patient is a poor historian and history primarily obtained from the records. According to the records I reviewed the patient has a history of diabetes mellitus, hypertension as well as HIV. Infectious disease is currently in consultation as well as critical care. The patient was admitted to this institution on November 19, 2016 after being found "down" in her apartment. On presentation to the hospital she was noted to have a blood sugar of 957 with a creatinine of 2.68 and initially a sodium of 133 as well as a total CO2 on BMP of 10.6. Beta hydroxybutyrate was elevated. Patient has been treated for DKA and serum sodium level as expected has increased as a glucose level has dropped. Creatinine level is slightly improved today at 2.56. There is also evidence of rhabdomyolysis on presentation with significantly elevated CK level and a urinalysis positive for large amount of blood but minimal rbc. Of interest patient was taking Crestor as an outpatient. Interval History The patient reports no new issues. (Kimi Platt) Review of Systems General Constitutional: Fatigue (Kimi Platt) Objective Data Data 11/21/16 11/22/16 19:00 07:00 Intake Total 820 ml 1559 ml Output Total 100 ml 450 ml Balance 720 ml 1109 ml Intake Oral 250 ml IV Total 820 ml 1309 ml Output Urine Total 100 ml 450 ml Vital Signs Date Time Temp Pulse Resp B/P Pulse Ox O2 Delivery O2 Flow Rate FiO2 11/22/16 10:00 95 11/22/16 08:26 98 Nasal Cannula 2.00 11/22/16 08:00 95 11/22/16 08:00 98.1 95 22 140/59 100 11/22/16 06:00 85 11/22/16 04:00 88 11/22/16 04:00 98.0 88 16 141/66 97 11/22/16 02:00 78 11/22/16 00:00 98.6 80 18 135/71 97 11/22/16 00:00 80 11/21/16 22:00 88 11/21/16 21:40 100 Nasal Cannula 2.00 11/21/16 20:00 98.1 75 22 161/59 100 11/21/16 20:00 77 11/21/16 18:00 92 11/21/16 16:00 88 11/21/16 16:00 98.1 92 17 161/67 100 11/21/16 14:00 93 (Kimi Platt) -: 11/22/16 0506 11/22/16 0506 Medication Review Current Medications Medications (Trade) Dose Ordered Sig/Francesca Route Start Time Stop Time Status Last Admin (NS Flush) 2 ml UNSCH PRN IVF 11/19/16 17:00 11/19/16 18:58 (Sodium Bicarbonate 8.4% Inj) 100 meq UNSCH PRN IV 11/19/16 18:45 Sodium Bicarbonate 50 meq 50 meq UNSCH PRN IV 11/19/16 18:45 (Vancomycin Consult Pharmacy) 0 ml @ 0 mls/hr UNSCH OTHER 11/19/16 22:30 (Protonix Inj) 40 mg DAILY IV 11/20/16 09:00 11/22/16 08:36 (Zofran Inj) 4 mg Q6H PRN IV 11/20/16 04:15 11/21/16 08:57 Miscellaneous Information 1 [id number] XX 11/20/16 04:15 11/20/16 04:15 (Chlorhexidine 2% Cloth) 3 pack Taper DAILY@04 TOP 11/21/16 04:00 11/17/17 03:59 11/21/16 20:09 (Chlorhexidine 2% Cloth) 3 pack UNSCH PRN TOP 11/20/16 04:15 (Mycostatin Cream) 1 applic Q12HR TOPICAL 11/20/16 09:00 11/22/16 09:00 (Plavix) 75 mg DAILY PO 11/21/16 09:00 11/22/16 08:35 Aspirin 81 mg 81 mg DAILY CHEW 11/21/16 09:00 11/22/16 08:36 (Merrem Inj/NS Inj) 100 ml @ 200 mls/hr Q12H IV 11/21/16 00:00 11/22/16 12:04 (D50w (Vial) Inj) 25 ml UNSCH PRN IV PUSH 11/20/16 17:00 (Glucagon Inj) 1 mg UNSCH PRN OTHER 11/20/16 17:00 Insulin Aspart 1 1 Q4HR SQ 11/20/16 16:00 11/22/16 12:00 (Sodium Bicarbonate 8.4% Inj/1/2 NS 1000 ml Inj) 1,075 ml @ 75 mls/hr [id number] IV 11/21/16 11:30 11/21/16 23:41 (Vitamin D3) 2,000 units DAILY PO 11/21/16 14:15 11/22/16 08:35 (Heparin Inj) 5,000 units Q12HR SQ 11/21/16 21:00 11/22/16 08:36 (Lopressor) 25 mg Q12HR PO 11/21/16 14:00 11/22/16 08:35 (Kimi Platt) Physical Exam General Appearance: No Acute Distress, Comfortable, Pale, Malnourished (Kimi Platt) Pulmonary Resp Exam: Clear Bilaterally, Breath Sounds Equal, No Distress (Kimi Platt) Cardiology CV Exam: Regular, Normal Sinus Rhythm (Kimi Platt) Gastrointestinal/Abdomen GI Exam: Soft, Non-Tender (Kimi Platt) Integumentary Skin Exam: Clear, Warm (Kimi Platt) Extremeties Extremities Exam: No Edema (Kimi Platt) Neurologic Neuro Exam: Alert, Awake, Speech Clear, Moving All Extremities (Kimi Platt) Assessment/Plan Discussed Condition With: Patient Problem List: (1) PRATIMA (acute kidney injury) Plan: The patient's azotemia has worsened again likely related to rhabdomyolysis and or ATN. Change IVF to D5 with 150meq bicarb and increase rate to 100mL/hr given her continued acidosis and hypernatremia. UOP minimal if documented accurately. Repeat renal panel a.m. Hopefully her renal functions will stabilize, but she may worsen and in the case may require dialytic intervention. Medications should be adjusted for the patient's estimated GFR if clinically indicated. Avoid agents with significant potential for nephrotoxicity possible including NSAIDs for analgesia, iodine contrast agents. Gadolinium is contraindicated if the GFR is below 30. (2) Rhabdomyolysis Plan: Most likely secondary to compression injury while patient was on the floor. Patient was on a statin drug i.e. Crestor so uncertain to what degree this may have played a role also. (3) Sepsis Plan: Infectious disease following. (4) CKD (chronic kidney disease) stage 3, GFR 30-59 ml/min Plan: Secondary to nephrosclerosis of hypertension and aging. (5) Metabolic acidosis Plan: Most likely related to diabetic ketoacidosis although there may be a component related to renal insufficiency also. Diabetic ketoacidosis should self corrects with improvement in blood sugar and renal perfusion. (6) Vitamin D deficiency Plan: Vitamin D supplementation as ordered. (Kimi Platt) Plan The exam, history, and the medical decision-making described in the above note were completed with the assistance of the [employer]. I reviewed and agree with the findings presented. (Mario Valdes MD) Kimi Platt Nov 22, 2016 12:24 Mario Valdes MD Nov 22, 2016 15:10
[2016-11-22] MEDS: SODIUM BICARBONATE 8.4% INJ 150 MEQ in DEXTROSE 5% IN WATE 1000ML INJ 1,000 ML IV SCH ×2 (14:00)
[2016-11-22 14:37] LABS: BLOOD GAS BASE EXCESS -14.2 mmol/L (-2-2); BLOOD GAS CARBOXYHEMOGLOBIN 2.3 % (0-4); BLOOD GAS HCO3 10 mmol/L (22-26); BLOOD GAS METHEMOGLOBIN 0.9 % (0-2); BLOOD GAS O2 HGB SATURATION 93 % (90-100); BLOOD GAS PCO2 18 mmHg (38-42); BLOOD GAS PO2 78 mmHg (61-120); BLOOD GAS TOTAL HGB 9.1 G/DL (12.0-16.0); CRITICAL VALUE YES; DRAW SITE RT RADIAL; LITER FLOW 22 L/M; NUMBER OF ARTERIAL PUNCTURES 1; OXYGEN DEVICE NASAL CANNULA; STAT NO; TEMP CORR TO 98.6; ULNAR PULSE PRESENT
[2016-11-23] VITALS (15 sets, daily range): BP systolic 117–132; BP diastolic 5–69; PULSE 71–96; RESP 20–22; TEMP 98.2–98.8; O2SAT 94–100
[2016-11-23] MEDS: MEROPENEM IV SCH ×4 (00:12→12:40)
[2016-11-23] MEDS: NS IV SCH ×4 (00:12→12:40)
[2016-11-23] MEDS: SODIUM BICARBONATE 8.4% INJ 150 MEQ in DEXTROSE 5% IN WATE 1000ML INJ 1,000 ML IV SCH ×4 (01:30→09:03)
[2016-11-23] MEDS: CHLORHEXIDINE GLUCONATE 2 % 1 PACK (2 CLOTHS) TOP SCH (04:00)
[2016-11-23] MEDS: MEDIUM DOSE INSULIN NOVOLOG SUPPLEMENTAL SCALE SQ SCH ×5 (04:00→21:41)
[2016-11-23] MEDS: RESP: ALBUTEROL 2.5 MG/IPRATROPIUM 0.5 MG NEB (SCH) INH ×4 (04:04→21:31)
[2016-11-23 06:07] LABS: AUTOMATED NEUTROPHIL # 3.5 TH/MM3 (1.8-7.7); BASOPHIL % 0.2 % (0.0-2.0); EOSINOPHIL # 0.1 TH/MM3 (0-0.4); EOSINOPHIL % 2.1 % (0.0-4.0); HEMATOCRIT 27.1 % (35.0-46.0); LYMPHOCYTE # 0.6 TH/MM3 (1.0-4.8); MEAN CELL VOLUME 83.4 FL (80.0-100.0); MEAN CORPUSCULAR HEMOGLOBIN 27.2 PG (27.0-34.0); MEAN CORPUSCULAR HGB CONC 32.6 % (32.0-36.0); MONO % 7.6 % (0.0-8.0); NEUT % 77.1 % (16.0-70.0); PLATELET COUNT 72 TH/MM3 (150-450); RED BLOOD COUNT 3.25 MIL/MM3 (4.00-5.30); RED CELL DISTRIBUTION WIDTH 15.3 % (11.6-17.2); WHITE BLOOD COUNT 4.5 TH/MM3 (4.0-11.0)
[2016-11-23 06:16] LABS: HEMO FLAGS DIFF FINAL
[2016-11-23 06:54] LABS: BICARBONATE 15.6 MEQ/L (21.0-32.0); CALCIUM-PROTEIN CORRECTED 8.8 MG/DL (8.5-10.1); POTASSIUM 3.8 MEQ/L (3.5-5.1); TOTAL BILIRUBIN ADULT 0.6 MG/DL (0.2-1.0)
[2016-11-23] MEDS: HEPARIN SODIUM - SQ 10,000 UNITS/ML VIAL SQ SCH ×2 (09:00→21:38)
[2016-11-23] MEDS: NYSTATIN 100,000 UNIT/GM CREAM 15 GM TOPICAL SCH ×2 (09:00→21:00)
[2016-11-23] MEDS: CLOPIDOGREL 75 MG TAB PO SCH (09:03)
[2016-11-23] MEDS: ASPIRIN 81 MG CHEW TAB CHEW SCH (09:04)
[2016-11-23] MEDS: PANTOPRAZOLE SODIUM 40 MG VIAL IV SCH (09:04)
[2016-11-23] MEDS: CHOLECALCIFEROL (VIT D3) 1000 UNIT TAB PO SCH (09:04)
[2016-11-23] MEDS: METOPROLOL TARTRATE 25 MG TAB PO SCH ×2 (09:05→21:37)
[2016-11-23] MEDS: INSULIN DETEMIR 100 UNITS/ML VIAL SQ SCH ×2 (09:45→21:38)
[2016-11-23] MEDS ORDERED: DOCUSATE SODIUM 50 MG/SENNA 8.6 MG TAB PO ONE (10:30)
--- NOTE | 2016-11-23 10:48 | PD.CONS ---
[facility] Family Medicine Consult Requested By Critical Care Reason for Consult Transfer of Service Primary Care Physician Esperanza Talamantes MD History of Present Illness On admission 76-year-old female, [facility] resident, with past medical history of diabetes, hypertension, COPD, atrial fibrillation on chronic anticoagulation with Eliquis, coronary artery disease with prior 3 vessel CABG, ICD placement due to V tach, who is brought into [facility] emergency department after she was found down in her apartment with glucose reading "high" with AMS. At time of admission patient was not able to provide history. Her neighbor says she last saw her 24 hours prior. She is in DKA, acute rhabdomyolysis, PRATIMA overlying CKD stage III, febrile with WBC 15.7, and lactic acidemia. CT brain is negative. U/a with rare bacteria. CXR with LLL infiltrate. Received aztreonam , vancomycin, flagyl, 1 L NS bolus and was started on DKA protocol in the ED. Her friend stated she has been very depressed lately after the of her son 1-2 months ago. She has been taking nitroglycerin sublingual frequently. She has been admitted in the past in January 2016 for DKA when she decided to quit taking insulin. Interval Hx DKA stabilized, off insulin drip. Patient now awake and provided additional history. Prior to admission she was sitting at her dining room table and the next thing she remembers is waking up in the hospital (consistent with h/o being found down). She denies CP, SOB, fevers/chills, lightheadedness/dizziness leading up to event. PRATIMA on CKD stable, not improving much, per Nephrology this is due to either ATN or rhabdomyolysis (total CK elevated, patient found down). (Anthony Kimbrough MD R1) Review of Systems Constitutional: COMPLAINS OF: Weight loss, DENIES: Fever, Chills Eyes: DENIES: Eye pain Ears, nose, mouth, throat: DENIES: Throat pain, Ear Pain Respiratory: DENIES: Cough, Wheezing, Shortness of breath Cardiovascular: DENIES: Chest pain, Palpitations, Syncope Gastrointestinal: COMPLAINS OF: Constipation, DENIES: Abdominal pain, Nausea, Vomiting Genitourinary: DENIES: Abnormal vaginal bleeding Musculoskeletal: DENIES: Muscle aches Integumentary: DENIES: Rash Hematologic/lymphatic: COMPLAINS OF: Bruising Immunologic/allergic: DENIES: Urticaria Neurologic: DENIES: Headache, Localized weakness Psychiatric: COMPLAINS OF: Depression, DENIES: Anxiety, Hallucinations ( Anthony Kimbrough MD R1) Past Family Social History Past Medical History Congestive heart failure/ischemic cardiomyopathy COPD, moderate CAD Dyslipidemia V tach 11/2012, s/p AICD A fib/ A flutter with RVR (onset 02/2013) Benign hypertension Diabetes mellitus type 2 Mari intertrigo Peripheral vascular disease chronic nonhealing wound of right leg (Dr Perez in [place]) h/o multidrug resistant UTIs osteopenia, hips BPPV orthostatic hypotension (resolved 07/2014) Vitamin D deficiency CKD --> resolved 11/2015 Memory Impairment, MMSE 23/30 on 12/2015 Past Surgical History CABG x3 1998 PINA, BSO Ovarian tumor 2002 Open repair of patellar fracture, 12/2011 ([place]) cardiac cath 08/2010 AICD placement 11/2012 cardiac ablation for a flutter 10/03/2013 ([facility]) (Anthony Kimbrough MD R1) Allergies: Coded Allergies: Cortisone (Verified Allergy, Severe, Rash, 11/12/16) Cortisone cream - rash on area that is apply Penicillin (Verified Allergy, Severe, Anaphylaxis, 11/12/16) Sulfa (Verified Allergy, Severe, Hives, 11/12/16) Hives on joints Cephalosporins (Verified Allergy, Unknown, 11/12/16) Codeine (Verified Allergy, Unknown, 11/12/16) Corticosteroids (Verified Allergy, Unknown, 11/12/16) Tizanidine (Verified Adverse Reaction, Severe, Dizziness, 11/12/16) Tetracyclines (Verified Adverse Reaction, Mild, 11/12/16) vomiting *MDRO Multi-Drug Resistant Organism (Verified Adverse Reaction, Unknown, ) MRSA (leg wound) 09/2012 and (finger wound) 09/2015 E-coli ESBL (urine) - 08/2013 MRSA PCR Screen POSITIVE - 11/20/2016 Uncoded Allergies: BETA LACTAMS (Allergy, Unknown, ., 09/26/15) UNK DARUNAVIR (Allergy, Unknown, ., 09/26/15) UNK OPIATES (Allergy, Unknown, ., 09/26/15) UNK AMPREVAVIR DERIVATIVES (Adverse Reaction, Unknown, ., 09/26/15) UNK Active Ordered Medications Current Medications Medications (Trade) Dose Ordered Sig/Francesca Route Start Time Stop Time Status Last Admin (NS Flush) 2 ml UNSCH PRN IVF 11/19/16 17:00 11/19/16 18:58 (Sodium Bicarbonate 8.4% Inj) 100 meq UNSCH PRN IV 11/19/16 18:45 Sodium Bicarbonate 50 meq 50 meq UNSCH PRN IV 11/19/16 18:45 (Vancomycin Consult Pharmacy) 0 ml @ 0 mls/hr UNSCH OTHER 11/19/16 22:30 (Protonix Inj) 40 mg DAILY IV 11/20/16 09:00 11/23/16 09:04 (Zofran Inj) 4 mg Q6H PRN IV 11/20/16 04:15 11/21/16 08:57 Miscellaneous Information 1 Q361D XX 11/20/16 04:15 11/20/16 04:15 (Chlorhexidine 2% Cloth) 3 pack Taper DAILY@04 TOP 11/21/16 04:00 11/17/17 03:59 11/23/16 04:00 (Chlorhexidine 2% Cloth) 3 pack UNSCH PRN TOP 11/20/16 04:15 (Mycostatin Cream) 1 applic Q12HR TOPICAL 11/20/16 09:00 11/23/16 09:00 (Plavix) 75 mg DAILY PO 11/21/16 09:00 11/23/16 09:03 Aspirin 81 mg 81 mg DAILY CHEW 11/21/16 09:00 11/23/16 09:04 (Merrem Inj/NS Inj) 100 ml @ 200 mls/hr Q12H IV 11/21/16 00:00 11/23/16 00:12 (D50w (Vial) Inj) 25 ml UNSCH PRN IV PUSH 11/20/16 17:00 (Glucagon Inj) 1 mg UNSCH PRN OTHER 11/20/16 17:00 (NovoLOG SUPPLEMENTAL SCALE) 1 Q4HR SQ 11/20/16 16:00 11/23/16 04:00 (Vitamin D3) 2,000 units DAILY PO 11/21/16 14:15 11/23/16 09:04 (Heparin Inj) 5,000 units Q12HR SQ 11/21/16 21:00 11/23/16 09:00 (Lopressor) 25 mg Q12HR PO 11/21/16 14:00 11/23/16 09:05 (Levemir Inj) 10 units Q12HR SQ 11/23/16 09:45 11/23/16 09:45 (Remeron) 15 mg HS PO 11/23/16 21:00 Donepezil HCl 5 mg 5 mg HS PO 11/23/16 21:00 Vancomycin HCl 1000 mg/Sodium Chloride 250 ml @ 250 mls/hr ONCE ONCE IV 11/23/16 12:00 11/23/16 12:59 (Sodium Bicarbonate 8.4% Inj/NS 1000 ml Inj) 1,150 ml @ 100 mls/hr [id number] IV 11/23/16 12:00 Family History Grandmother: leukemia, heart disease Mother: smoker, unknown Father: heart disease one daughter on Hospice, Failure to Thrive diagnosis Son 08/2016 from Pancreatic Cancer Social History Lives alone. tobacco: 47 yrs, 2 pks a day, last 1998, denies alcohol, denies drug use Boyfriend Johnnie 10/2011 of pneumonia, complication from a stroke DNR If patient is unable to speak for herself, she would like Letimichael Strongrosa to speak for her ([phone]) (Anthony Kimbrough MD R1) Physical Exam Vital Signs Vital Signs Date Time Temp Pulse Resp B/P Pulse Ox O2 Delivery O2 Flow Rate FiO2 11/23/16 08:56 98 Nasal Cannula 2.00 11/23/16 08:00 98.8 81 22 118/59 100 11/23/16 08:00 82 11/23/16 06:21 81 11/23/16 05:29 98.6 80 22 117/55 96 11/23/16 05:00 82 11/23/16 04:00 74 11/23/16 03:00 77 11/23/16 02:00 82 11/23/16 01:00 79 11/23/16 00:14 98.6 71 22 132/61 96 11/23/16 00:00 71 11/22/16 23:00 74 11/22/16 22:00 84 11/22/16 21:36 98.4 88 24 118/55 96 11/22/16 21:00 86 11/22/16 20:34 94 Nasal Cannula 2.00 11/22/16 20:00 81 11/22/16 19:00 81 11/22/16 18:00 71 11/22/16 16:01 98.4 72 20 159/71 99 11/22/16 16:01 71 11/22/16 14:00 95 11/22/16 12:00 95 11/22/16 12:00 98.1 71 22 144/64 100 Physical Exam GENERAL: WDWN elderly white female sitting up in bed in NAD. SKIN: Mild pallor. No rashes. Large ecchymosis covering left forearm and distal 1/3 of left upper arm on posteromedial side. Ecchymosis of right mid-arm. Cool and dry. HEAD: NC/AT EYES: EOMI. No conjunctival injection or drainage. ENT: MMM, OP without erythema, tonsillar swelling, or exudate. NECK: No JVD. CARDIOVASCULAR: NRRR. Normal S1/S2. No MRG RESPIRATORY: CTAB. No crackles or wheezes. GASTROINTESTINAL: Abdomen soft, non-distended, mildly tender to palpation in LLQ with some fullness. No hepato-splenomegaly or palpable masses. MUSCULOSKELETAL: Extremities without clubbing, cyanosis, or edema. NEUROLOGICAL: Awake and alert. Oriented to self, location (state) and day of the week. Did not know year or city. Cranial nerves II through XII grossly intact. Moves all extremities without difficulty. Normal speech. Laboratory Laboratory Tests Test 11/22/16 11/23/16 14:27 05:33 Blood Gas Puncture Site RT RADIAL Blood Gas Patient Temperature 98.6 Blood Gas HCO3 10 Blood Gas Base Excess -14.2 Blood Gas Oxygen Saturation 93 Arterial Blood pH 7.38 Arterial Blood Partial 18 Pressure CO2 Arterial Blood Partial 78 Pressure O2 Arterial Blood Oxygen Content 12.0 Arterial Blood 2.3 Carboxyhemoglobin Arterial Blood Methemoglobin 0.9 Blood Gas Hemoglobin 9.1 Oxygen Delivery Device NASAL CANNULA Blood Gas Liter Flow 22 White Blood Count 4.5 Red Blood Count 3.25 Hemoglobin 8.8 Hematocrit 27.1 Mean Corpuscular Volume 83.4 Mean Corpuscular Hemoglobin 27.2 Mean Corpuscular Hemoglobin 32.6 Concent Red Cell Distribution Width 15.3 Platelet Count 72 Mean Platelet Volume 8.8 Neutrophils (%) (Auto) 77.1 Lymphocytes (%) (Auto) 13.0 Monocytes (%) (Auto) 7.6 Eosinophils (%) (Auto) 2.1 Basophils (%) (Auto) 0.2 Neutrophils # (Auto) 3.5 Lymphocytes # (Auto) 0.6 Monocytes # (Auto) 0.3 Eosinophils # (Auto) 0.1 Basophils # (Auto) 0.0 CBC Comment DIFF FINAL Differential Comment Sodium Level 140 Potassium Level 3.8 Chloride Level 111 Carbon Dioxide Level 15.6 Anion Gap 13 Blood Urea Nitrogen 74 Creatinine 5.52 Estimat Glomerular Filtration 8 Rate Random Glucose 342 Calcium Level 7.3 Protein Corrected Calcium 8.8 Total Bilirubin 0.6 Aspartate Amino Transf 58 (AST/SGOT) Alanine Aminotransferase 35 (ALT/SGPT) Alkaline Phosphatase 67 Total Protein 4.4 Albumin 1.7 Random Vancomycin Level 15.3 Date/Time Procedure Status Source Growth 11/19/16 20:20 Influenza Types A,B Antigen (RAY) - Final Complete Nasal Aspirate NEGATIVE FOR FLU A AND B ANTIGEN.... 11/19/16 17:05 Aerobic Blood Culture - Preliminary Resulted Blood Peripheral NO GROWTH IN 3 DAYS 11/19/16 17:05 Anaerobic Blood Culture - Preliminary Resulted Blood Peripheral NO GROWTH IN 3 DAYS 11/19/16 17:00 Urine Culture - Final Complete Urine Catheterized Urine NO GROWTH IN 48 HOURS. (Anthony Kimbrough MD R1) Result Diagram: 11/23/16 0533 11/23/16 0533 Imaging Last Impressions Chest X-Ray 11/21/16 0600 Signed Impressions: Service Date/Time: Monday, November 21, 2016 04:32 - CONCLUSION: Rotated and underinflated examination with new mild bibasilar opacity representing either atelectasis or consolidation. Edmond Valdez MD Abdomen Ultrasound 11/21/16 0000 Signed Impressions: Service Date/Time: Monday, November 21, 2016 16:04 - CONCLUSION: 1. Dilated common bile duct measuring 11 mm. Correlation with alkaline phosphatase and bilirubin level is suggested to rule out biliary obstruction. 2. Thick-walled stone-containing gallbladder with minimal pericholecystic fluid. If there is clinical concern for acute cholecystitis a hepatobiliary scan may be helpful to confirm cystic duct obstruction. 3. Mild hepatomegaly. 4. Small right pleural effusion. 5. Trace ascites. 6. Poor visualization of the pancreas, abdominal aorta and inferior vena cava secondary to shadowing bowel gas. Joey Rosenthal MD Pelvis X-Ray 11/19/16 0000 Signed Impressions: Service Date/Time: Saturday, November 19, 2016 18:23 - CONCLUSION: 1. Moderate degenerative changes involving the hip joints bilaterally. 2. Degenerative changes involving the lower lumbar spine. 3. No acute fracture or dislocation. Joey Rosenthal MD Head CT 11/19/16 0000 Signed Impressions: Service Date/Time: Saturday, November 19, 2016 17:54 - CONCLUSION: No acute disease. Joey Rosenthal MD Cervical Spine CT 11/19/16 0000 Signed Impressions: Service Date/Time: Saturday, November 19, 2016 17:54 - CONCLUSION: 1. Extensive motion artifact particularly at C3 and C4 levels which limits interpretation of these levels. 2. Grade I retrolisthesis of C3 in relation to C4 and C2 as well as C4 in relation to C5. 3. Diffuse cervical spondylosis at C5-C6, C6- C7 and to a lesser extent at C4-C5 and C3-C4. 4. No acute fracture or prevertebral soft-tissue swelling. 5. Mild spinal stenosis at C5-C6. 6. Mild bilateral foraminal narrowing at C5-C6 and C6-C7 and to a lesser extent at C4- C5 and C3-C4. 7. Reversal of the normal cervical lordosis. Joey Rosenthal MD (Anthony Kimbrough MD R1) Assessment and Plan Assessment and Plan 76 year old female with PMH of DM, AFib, COPD presenting with: (Anthony Kimbrough MD R1) Attending Attestation Patient seen and examined, discussed with resident team. I agree with assessment and management as documented and discussed with me. Pt out of DKA but glucose elevated due to D5 in IV fluid. Changed to NS with bicarb. Will need to monitor for hypernatremia. Pt reports feeling better. Mental status at baseline. Continue PT, insulin. Appreciate nephrology. Concern that patient's kidney function is worsening. The patient has been seen and examined. The chart and all resident notes have been reviewed. I agree that inpatient care is appropriate and that a two midnight stay is expected for the reasons documented in the resident history and physical. I have discussed this with the resident and certify the resident s order for inpatient admission. (Esperanza Talamantes MD) Problem List: (1) Altered mental status Status: Resolved Plan: Initial concern of altered mental status was likely due to combination of DKA and rhabdomyolysis. Now improved, awake and alert. CT brain negative for acute abnormality 11/19/16 CT C-spine - grade I retrolisthesis C3 in relation C2 and C4 and C in relation Cf. Degenerative changes * Manage diabetes as below * Manage rhabdomyolysis / PRATIMA as below * Can be safely taken off stroke precautions * Monitor neuro status * Avoid sedating medications (2) Diabetic ketoacidosis Status: Resolved Plan: Likely due to not taking insulin in unspecified timeframe. Now resolved, stable off insulin drip. BGs ranging 100s-300s. * NS + bicarb @ 100 cc/hr * Diabetic diet * Levemir 10 units BID (on glargine 58 at home, but poor PO intake so lower total dose to avoid hypoglycemia) * Medium dose SSI * Bedside glucose TIDAC (3) Leukocytosis Status: Resolved Plan: On admission, WBC 15.7 with PMN predominance WBC: 15.7 --> 12.6 --> 13.7 --> 10.0 --> 5.4 --> 4.5 CXR poorly inflated and rotated but showing questionable basilar consolidation * ID consulted, appreciate recommendations * Continue meropenem; if cultures continue to be negative can discontinue per ID * Questionable h/o HIV due to having allergy to HIV meds, patient has no known history of HIV and has not been on HIV meds; will check HIV abs * Monitor CBC (4) Acute on chronic kidney failure Status: Acute Plan: Likely due to rhabdomyolysis, total CK markedly elevated. Cr: 4.65 today from 3.48 UOP: 550 ml in 24 hrs * Nephrology consulted, appreciate recommendations * NS + 150 mEq/L bicarb @ 100 cc/hr * Monitor BMP (5) Rhabdomyolysis Status: Acute Plan: See above (6) Ecchymosis on examination Status: Acute Plan: Several large ecchymoses on exam Plt count downtrending (160 --> 124 --> 79 --> 77) HIT panel pending * Hold heparin * Monitor CBC * Monitor clinically (7) Candidiasis of skin Status: Chronic Plan: Nystatin topically to affected areas as needed (8) Atrial fibrillation Status: Chronic Plan: Rate controlled, asymptomatic * Continue aspirin and plavix (CAD as well), consider stopping if patient develops active bleeding (9) Dementia Status: Chronic Plan: Continue home Aricept (10) CHF, chronic Status: Chronic Plan: Stable, most recent Echo 11/19/16 showing normal EF (45-50%) * Continue home Lopressor (11) Coronary artery disease Status: Chronic Plan: Continue home ASA, Plavix; consider holding if active bleeding develops NTG PRN for chest pain Monitor vitals, symptoms (12) Chronic obstructive lung disease Status: Chronic Plan: Stable * Oxygen as needed * Bronchodilators as needed (13) Depressed Status: Acute Plan: Could be reactive vs MDD * Given poor appetite and weight loss, start Remeron 15 mg HS (14) FEN/PPX Status: Acute Plan: Fluids: NS + bicarb @ 100 cc/hr Electrolytes: Monitor and replete as needed Nutrition: Diabetic diet (Anthony Kimbrough MD R1) Problem Qualifiers (1) Altered mental status: Qualified Code: R40.2422 - Matthew coma scale total score 9-12, at arrival to emergency department (2) Diabetic ketoacidosis: Qualified Code: E13.11 - Diabetic ketoacidosis with coma associated with type 2 diabetes mellitus (3) Leukocytosis: Qualified Code: D72.825 - Bandemia (4) Rhabdomyolysis: Qualified Code: M62.82 - Non-traumatic rhabdomyolysis (5) Atrial fibrillation: Qualified Code: I48.2 - Chronic atrial fibrillation (6) Dementia: Qualified Code: G30.1 - Late onset Alzheimer's disease without behavioral disturbance (7) Coronary artery disease: Qualified Code: I25.118 - Coronary artery disease of [place] artery of [place] heart with stable angina pectoris Anthony Kimbrough MD R1 Nov 23, 2016 10:48 Esperanza Talamantes MD Nov 23, 2016 20:22
[2016-11-23] MEDS ORDERED: SODIUM CHLOR 0.9% 1000 ML INJ 1,000 ML IV SCH (11:00)
[2016-11-23] MEDS: SODIUM BICARBONATE 8.4% INJ 150 MEQ in SODIUM CHLOR 0.9% 1000 ML INJ 1,000 ML IV SCH (12:00)
[2016-11-23] MEDS ORDERED: VANCOMYCIN 1,000 MG/NS 250 ML IV ONE ×2 (12:00)
[2016-11-23 14:06] LABS: HEPARIN AB OD 0.037 O.D. (0.000-0.300); HEPARIN INDUCED PLATELET AB NEGATIVE (NEGATIVE)
--- NOTE | 2016-11-23 15:17 | HHI.NPPN ---
Subjective History of Present Illness This patient is a 76-year-old female. Patient is a poor historian and history primarily obtained from the records. According to the records I reviewed the patient has a history of diabetes mellitus, hypertension as well as HIV. Infectious disease is currently in consultation as well as critical care. The patient was admitted to this institution on November 19, 2016 after being found "down" in her apartment. On presentation to the hospital she was noted to have a blood sugar of 957 with a creatinine of 2.68 and initially a sodium of 133 as well as a total CO2 on BMP of 10.6. Beta hydroxybutyrate was elevated. Patient has been treated for DKA and serum sodium level as expected has increased as a glucose level has dropped. Creatinine level is slightly improved today at 2.56. There is also evidence of rhabdomyolysis on presentation with significantly elevated CK level and a urinalysis positive for large amount of blood but minimal rbc. Of interest patient was taking Crestor as an outpatient. Interval History Denying any shortness of breath. Complaining of generalized muscular aches. Review of Systems General Constitutional: Fatigue Objective Data Data 11/22/16 11/23/16 19:00 07:00 Intake Total 1043 ml 1147 ml Output Total 200 ml 420 ml Balance 843 ml 727 ml Intake Oral 320 ml 360 ml IV Total 723 ml 787 ml Output Urine Total 200 ml 420 ml # Bowel Movements 0 Vital Signs Date Time Temp Pulse Resp B/P Pulse Ox O2 Delivery O2 Flow Rate FiO2 11/23/16 12:00 98.6 73 22 122/5 100 11/23/16 08:56 98 Nasal Cannula 2.00 11/23/16 08:00 98.8 81 22 118/59 100 11/23/16 08:00 82 11/23/16 06:21 81 11/23/16 05:29 98.6 80 22 117/55 96 11/23/16 05:00 82 11/23/16 04:00 74 11/23/16 03:00 77 11/23/16 02:00 82 11/23/16 01:00 79 11/23/16 00:14 98.6 71 22 132/61 96 11/23/16 00:00 71 11/22/16 23:00 74 11/22/16 22:00 84 11/22/16 21:36 98.4 88 24 118/55 96 11/22/16 21:00 86 11/22/16 20:34 94 Nasal Cannula 2.00 11/22/16 20:00 81 11/22/16 19:00 81 11/22/16 18:00 71 11/22/16 16:01 98.4 72 20 159/71 99 11/22/16 16:01 71 -: 11/23/16 0533 11/23/16 0533 Physical Exam General Appearance: No Acute Distress, Comfortable, Pale, Malnourished Pulmonary Resp Exam: Breath Sounds Equal, No Distress, Crackles (coarse crackles in the bases bilaterally) Cardiology CV Exam: Regular, Normal Sinus Rhythm Gastrointestinal/Abdomen GI Exam: Soft, Non-Tender Integumentary Skin Exam: Clear, Warm Extremeties Extremities Exam: No Edema Neurologic Neuro Exam: Alert, Awake, Speech Clear, Moving All Extremities Assessment/Plan Discussed Condition With: Patient Problem List: (1) PRATIMA (acute kidney injury) Plan: The patient's azotemia has worsened again likely related to rhabdomyolysis and or ATN. Repeat renal panel a.m. Unfortunately for renal function continues to deteriorate we may have to consider dialytic support. This was discussed with her. If dialysis is initiated and may be required temporarily but this can be guaranteed as discussed with the patient. Medications should be adjusted for the patient's estimated GFR if clinically indicated. Avoid agents with significant potential for nephrotoxicity possible including NSAIDs for analgesia, iodine contrast agents. Gadolinium is contraindicated if the GFR is below 30. (2) Rhabdomyolysis Plan: Most likely secondary to compression injury while patient was on the floor. Patient was on a statin drug i.e. Crestor so uncertain to what degree this may have played a role also. Repeat CPK level in a.m. (3) Sepsis Plan: Infectious disease following. (4) CKD (chronic kidney disease) stage 3, GFR 30-59 ml/min Plan: Secondary to nephrosclerosis of hypertension and aging. (5) Metabolic acidosis Plan: Improved. Continue bicarbonate drip. (6) Vitamin D deficiency Plan: Vitamin D supplementation as ordered. Plan The exam, history, and the medical decision-making described in the above note were completed with the assistance of the SALOM[facility]. I reviewed and agree with the findings presented. Problem Qualifiers (1) Rhabdomyolysis: Qualified Code: M62.82 - Non-traumatic rhabdomyolysis Mario Valdes MD Nov 23, 2016 15:17
[2016-11-23] MEDS: DONEPEZIL HCL 5 MG TAB PO SCH (21:37)
[2016-11-23] MEDS: MIRTAZAPINE 15 MG TAB PO SCH (21:38)
[2016-11-24] VITALS (8 sets, daily range): BP systolic 118–151; BP diastolic 61–72; PULSE 72–94; RESP 15–20; TEMP 95.5–98.6; O2SAT 90–96
[2016-11-24] MEDS ORDERED: MEROPENEM IV SCH ×2
[2016-11-24] MEDS ORDERED: NS IV SCH ×2
[2016-11-24] MEDS: RESP: ALBUTEROL 2.5 MG/IPRATROPIUM 0.5 MG NEB (SCH) INH ×2 (03:08→09:55)
[2016-11-24] MEDS: CHLORHEXIDINE GLUCONATE 2 % 1 PACK (2 CLOTHS) TOP SCH ×2 (04:00→20:54)
[2016-11-24] MEDS: MEDIUM DOSE INSULIN NOVOLOG SUPPLEMENTAL SCALE SQ SCH ×6 (04:00→20:00)
[2016-11-24] MEDS: SODIUM BICARBONATE 8.4% INJ 150 MEQ in SODIUM CHLOR 0.9% 1000 ML INJ 1,000 ML IV SCH ×2 (04:23→20:52)
[2016-11-24 05:22] LABS: BASOPHIL % 0.2 % (0.0-2.0); EOSINOPHIL # 0.2 TH/MM3 (0-0.4); EOSINOPHIL % 2.5 % (0.0-4.0); HEMATOCRIT 29.7 % (35.0-46.0); HEMO FLAGS DIFF FINAL; LYMPH % 10.5 % (9.0-44.0); LYMPHOCYTE # 0.7 TH/MM3 (1.0-4.8); MEAN CELL VOLUME 80.5 FL (80.0-100.0); MEAN CORPUSCULAR HEMOGLOBIN 26.8 PG (27.0-34.0); MEAN CORPUSCULAR HGB CONC 33.3 % (32.0-36.0); MONO % 10.3 % (0.0-8.0); NEUT % 76.5 % (16.0-70.0); PLATELET COUNT 103 TH/MM3 (150-450); RED BLOOD COUNT 3.68 MIL/MM3 (4.00-5.30); RED CELL DISTRIBUTION WIDTH 15.1 % (11.6-17.2); WHITE BLOOD COUNT 6.5 TH/MM3 (4.0-11.0)
[2016-11-24 06:06] LABS: BICARBONATE 21.6 MEQ/L (21.0-32.0); MAGNESIUM 1.7 MG/DL (1.5-2.5); POTASSIUM 4.1 MEQ/L (3.5-5.1)
[2016-11-24 06:30] LABS: CKMB 2.5 NG/ML (0.5-3.6)
[2016-11-24] MEDS: NYSTATIN 100,000 UNIT/GM CREAM 15 GM TOPICAL SCH ×3 (09:00→20:54)
[2016-11-24] MEDS: INSULIN DETEMIR 100 UNITS/ML VIAL SQ SCH ×2 (09:06→20:53)
[2016-11-24] MEDS: CHOLECALCIFEROL (VIT D3) 1000 UNIT TAB PO SCH (09:08)
[2016-11-24] MEDS: PANTOPRAZOLE SODIUM 40 MG VIAL IV SCH (09:08)
[2016-11-24] MEDS: ASPIRIN 81 MG CHEW TAB CHEW SCH (09:08)
[2016-11-24] MEDS: METOPROLOL TARTRATE 25 MG TAB PO SCH ×2 (09:08→20:52)
[2016-11-24] MEDS: HEPARIN SODIUM - SQ 10,000 UNITS/ML VIAL SQ SCH ×2 (09:09→20:53)
[2016-11-24] MEDS: CLOPIDOGREL 75 MG TAB PO SCH (09:09)
[2016-11-24] MEDS ORDERED: DOCUSATE SODIUM 50 MG/SENNA 8.6 MG TAB PO ONE (10:15)
[2016-11-24] MEDS: MUPIROCIN 2% OINT 22 GM TUBE TOPICAL SCH ×2 (11:49→20:54)
[2016-11-24 12:04] LABS: BACTERIA, URINE MANY /hpf; BLOOD, URINE MOD (NEG); GLUCOSE,URINE NEG (NEG); KETONE, URINE NEG (NEG); NITRITE,URINE NEG (NEG); TRANSITIONAL EPI CELLS, URINE 3 /hpf; URINE COLOR YELLOW (YELLW/STRAW)
[2016-11-24 12:07] LABS: COMMENT (UR) CATH-CULTURE IND; CULTURE IF INDICATED CATH CULTURE IND
--- NOTE | 2016-11-24 12:38 | HHI.NPPN ---
Subjective History of Present Illness This patient is a 76-year-old female. Patient is a poor historian and history primarily obtained from the records. According to the records I reviewed the patient has a history of diabetes mellitus, hypertension as well as HIV. Infectious disease is currently in consultation as well as critical care. The patient was admitted to this institution on November 19, 2016 after being found "down" in her apartment. On presentation to the hospital she was noted to have a blood sugar of 957 with a creatinine of 2.68 and initially a sodium of 133 as well as a total CO2 on BMP of 10.6. Beta hydroxybutyrate was elevated. Patient has been treated for DKA and serum sodium level as expected has increased as a glucose level has dropped. Creatinine level is slightly improved today at 2.56. There is also evidence of rhabdomyolysis on presentation with significantly elevated CK level and a urinalysis positive for large amount of blood but minimal rbc. Of interest patient was taking Crestor as an outpatient. Interval History Pt says "feeling lousy" today---back pain, poor appetite, fatigue. Anxious to get PT today as she is tired of laying in bed (Kimi Platt) Review of Systems General Constitutional: Fatigue (Kimi Platt) Objective Data Data 11/23/16 11/24/16 19:00 07:00 Intake Total 1170 ml 1590 ml Output Total 250 ml 1100 ml Balance 920 ml 490 ml Intake Oral 320 ml 500 ml IV Total 850 ml 1090 ml Output Urine Total 250 ml 1100 ml # Bowel Movements 0 Vital Signs Date Time Temp Pulse Resp B/P Pulse Ox O2 Delivery O2 Flow Rate FiO2 11/24/16 09:57 93 Nasal Cannula 3.00 11/24/16 08:00 97.2 72 15 131/61 94 11/24/16 03:10 90 Nasal Cannula 3.00 11/24/16 00:00 98.0 92 20 118/70 96 11/23/16 21:31 99 21 11/23/16 20:00 98.2 96 20 122/69 94 11/23/16 16:00 98.7 73 22 128/54 100 (Kimi Platt) -: 11/24/16 0455 11/24/16 0455 Microbiology 11/24/16 Urine Culture, Received Pending Medication Review Current Medications Medications (Trade) Dose Ordered Sig/Francesca Route Start Time Stop Time Status Last Admin (NS Flush) 2 ml UNSCH PRN IVF 11/19/16 17:00 11/19/16 18:58 (Sodium Bicarbonate 8.4% Inj) 100 meq UNSCH PRN IV 11/19/16 18:45 Sodium Bicarbonate 50 meq 50 meq UNSCH PRN IV 11/19/16 18:45 (Vancomycin Consult Pharmacy) 0 ml @ 0 mls/hr UNSCH OTHER 11/19/16 22:30 (Protonix Inj) 40 mg DAILY IV 11/20/16 09:00 11/24/16 09:08 (Zofran Inj) 4 mg Q6H PRN IV 11/20/16 04:15 11/21/16 08:57 Miscellaneous Information 1 Q361D XX 11/20/16 04:15 11/20/16 04:15 (Chlorhexidine 2% Cloth) 3 pack Taper DAILY@04 TOP 11/21/16 04:00 11/17/17 03:59 11/23/16 04:00 (Chlorhexidine 2% Cloth) 3 pack UNSCH PRN TOP 11/20/16 04:15 (Mycostatin Cream) 1 applic Q12HR TOPICAL 11/20/16 09:00 11/24/16 11:49 (Plavix) 75 mg DAILY PO 11/21/16 09:00 11/24/16 09:09 (Aspirin Chew) 81 mg DAILY CHEW 11/21/16 09:00 11/24/16 09:08 (D50w (Vial) Inj) 25 ml UNSCH PRN IV PUSH 11/20/16 17:00 (Glucagon Inj) 1 mg UNSCH PRN OTHER 11/20/16 17:00 (NovoLOG SUPPLEMENTAL SCALE) 1 Q4HR SQ 11/20/16 16:00 11/24/16 11:49 (Vitamin D3) 2,000 units DAILY PO 11/21/16 14:15 11/24/16 09:08 (Heparin Inj) 5,000 units Q12HR SQ 11/21/16 21:00 11/24/16 09:09 (Lopressor) 25 mg Q12HR PO 11/21/16 14:00 11/24/16 09:08 (Remeron) 15 mg HS PO 11/23/16 21:00 11/23/16 21:38 Donepezil HCl 5 mg 5 mg HS PO 11/23/16 21:00 11/23/16 21:37 (Sodium Bicarbonate 8.4% Inj/NS 1000 ml Inj) 1,150 ml @ 70 mls/hr [id number] IV 11/23/16 12:00 11/24/16 04:23 (Levemir Inj) 5 units Q12HR SQ 11/24/16 09:00 11/24/16 09:06 (Bactroban 2% Oint) 1 applic Q12HR TOPICAL 11/24/16 10:00 11/24/16 11:49 (Kimi Platt) Physical Exam General Appearance: No Acute Distress, Comfortable, Pale, Malnourished (Kimi Platt) Pulmonary Resp Exam: Breath Sounds Equal, No Distress, Crackles (coarse crackles in the bases bilaterally) (Kimi Platt) Cardiology CV Exam: Regular, Normal Sinus Rhythm (Kimi Platt) Gastrointestinal/Abdomen GI Exam: Soft, Non-Tender (Kimi Platt) Integumentary Skin Exam: Clear, Warm (Kimi Platt) Extremeties Extremities Exam: No Edema (Kimi Platt) Neurologic Neuro Exam: Alert, Awake, Speech Clear, Moving All Extremities (Kimi Platt) Assessment/Plan Discussed Condition With: Patient Problem List: (1) PRAITMA (acute kidney injury) Plan: SCr continues to rise. Bicarb improved and UOP decent. No emergent need for HD today, but as discussed with the patient, dialytic intervention may be required as early as tomorrow. She has been counselled about dialysis in detail. Hopeful this would be a temporary intervention, but this is not certain and she has been made aware of this. Says she would like to speak with her friend before proceeding. Says she has no immediate family to discuss health concerns with. Medications should be adjusted for the patient's estimated GFR if clinically indicated. Avoid agents with significant potential for nephrotoxicity possible including NSAIDs for analgesia, iodine contrast agents. Gadolinium is contraindicated if the GFR is below 30. (2) Rhabdomyolysis Plan: Most likely secondary to compression injury while patient was on the floor. Patient was on a statin drug i.e. Crestor so uncertain to what degree this may have played a role also. Repeat CPK level in a.m. (3) Sepsis Plan: Infectious disease following. (4) CKD (chronic kidney disease) stage 3, GFR 30-59 ml/min Plan: Secondary to nephrosclerosis of hypertension and aging. (5) Metabolic acidosis Plan: Improved. Continue bicarbonate drip. (6) Vitamin D deficiency Plan: Vitamin D supplementation as ordered. (Kimi Platt) Plan The exam, history, and the medical decision-making described in the above note were completed with the assistance of the PA-C. I reviewed and agree with the findings presented. I attest that I had a [id number] encounter with the patient on the same day, and personally performed and documented my assessment and findings in the medical record. (Mario Valdes MD) Problem Qualifiers (1) Rhabdomyolysis: Qualified Code: M62.82 - Non-traumatic rhabdomyolysis Kimi Platt Nov 24, 2016 12:38 Mario Valdes MD Nov 26, 2016 16:58
--- NOTE | 2016-11-24 14:56 | HHI.FPPN ---
Subjective Remarks Patient seen and examined. No acute events overnight. O2 sats in low 90s on 3L NC. Other VSS. Afebrile. Reports pain and swelling on her right middle finger. No other complaints. Does have baseline dementia. (Edna Jansen MD R3) Objective Vitals Vital Signs Date Time Temp Pulse Resp B/P Pulse Ox O2 Delivery O2 Flow Rate FiO2 11/24/16 09:57 93 Nasal Cannula 3.00 11/24/16 08:00 97.2 72 15 131/61 94 11/24/16 03:10 90 Nasal Cannula 3.00 11/24/16 00:00 98.0 92 20 118/70 96 11/23/16 21:31 99 21 11/23/16 20:00 98.2 96 20 122/69 94 11/23/16 16:00 98.7 73 22 128/54 100 I/O 11/23/16 11/23/16 11/23/16 11/24/16 11/24/16 11/24/16 07:00 15:00 23:00 07:00 15:00 23:00 Intake Total 1147 ml 1170 ml 840 ml 750 ml Output Total 420 ml 250 ml 450 ml 650 ml 175 ml Balance 727 ml 920 ml 390 ml 100 ml -175 ml Intake Oral 360 ml 320 ml 260 ml 240 ml IV Total 787 ml 850 ml 580 ml 510 ml Output Urine Total 420 ml 250 ml 450 ml 650 ml 175 ml # Bowel Movements 0 0 0 (Edna Jansen MD R3) Result Diagram: 11/24/16 0455 11/24/16 0455 Imaging Chest X-Ray 11/21/16 0600 Signed Impressions: Service Date/Time: Monday, November 21, 2016 04:32 - CONCLUSION: Rotated and underinflated examination with new mild bibasilar opacity representing either atelectasis or consolidation. Edmond Valdez MD Abdomen Ultrasound 11/21/16 0000 Signed Impressions: Service Date/Time: Monday, November 21, 2016 16:04 - CONCLUSION: 1. Dilated common bile duct measuring 11 mm. Correlation with alkaline phosphatase and bilirubin level is suggested to rule out biliary obstruction. 2. Thick-walled stone-containing gallbladder with minimal pericholecystic fluid. If there is clinical concern for acute cholecystitis a hepatobiliary scan may be helpful to confirm cystic duct obstruction. 3. Mild hepatomegaly. 4. Small right pleural effusion. 5. Trace ascites. 6. Poor visualization of the pancreas, abdominal aorta and inferior vena cava secondary to shadowing bowel gas. Joey Rosenthal MD Pelvis X-Ray 11/19/16 0000 Signed Impressions: Service Date/Time: Saturday, November 19, 2016 18:23 - CONCLUSION: 1. Moderate degenerative changes involving the hip joints bilaterally. 2. Degenerative changes involving the lower lumbar spine. 3. No acute fracture or dislocation. Joey Rosenthal MD Head CT 11/19/16 0000 Signed Impressions: Service Date/Time: Saturday, November 19, 2016 17:54 - CONCLUSION: No acute disease. Joey Rosenthal MD Cervical Spine CT 11/19/16 0000 Signed Impressions: Service Date/Time: Saturday, November 19, 2016 17:54 - CONCLUSION: 1. Extensive motion artifact particularly at C3 and C4 levels which limits interpretation of these levels. 2. Grade I retrolisthesis of C3 in relation to C4 and C2 as well as C4 in relation to C5. 3. Diffuse cervical spondylosis at C5-C6, C6- C7 and to a lesser extent at C4-C5 and C3-C4. 4. No acute fracture or prevertebral soft-tissue swelling. 5. Mild spinal stenosis at C5-C6. 6. Mild bilateral foraminal narrowing at C5-C6 and C6-C7 and to a lesser extent at C4- C5 and C3-C4. 7. Reversal of the normal cervical lordosis. Joey Rosenthal MD Objective Remarks GENERAL: WDWN elderly white female sitting up in bed in [facility]. SKIN: Mild pallor. No rashes. Large ecchymosis covering left forearm and distal 1/3 of left upper arm on posteromedial side. Ecchymosis of right mid-arm. Cool and dry. HEAD: NC/AT EYES: EOMI. No conjunctival injection or drainage. ENT: MMM, OP without erythema, tonsillar swelling, or exudate. NECK: No JVD. CARDIOVASCULAR: NRRR. Normal S1/S2. No MRG RESPIRATORY: CTAB. No crackles or wheezes. GASTROINTESTINAL: Abdomen soft, non-distended, and non-distended. No hepato- splenomegaly or palpable masses. MUSCULOSKELETAL: Small superficial abrasion on dorsal aspect of middle finger. Slightly erythematous but evidence of cellulitis or abscess. FROM. NEUROLOGICAL: Awake and alert. Moves all extremities without difficulty. Normal speech. Recalled daughter's that happened 6-7 years ago like it was a recent event. (Edna Jansen MD R3) A/P Assessment and Plan 76 year old female with PMH of DM, AFib, COPD presenting with: Discharge Planning Anticipate discharge pending clinical improvement. Unclear timeframe. Acute on chronic kidney disease workup pending. s/d/w Dr. Talamantes and Dr. Kimbrough (Edna Jansen MD R3) Attending Attestation Patient seen, examined and discussed with resident team. I agree with assessment and management as documented and discussed with me. Pt without significant complaints today, except for mild pain at R 3rd digit. She speaks of her daughter's passing as if recent, although this is years ago. She also reports that her son is still alive, despite recently passing in August. She appears to be more demented than at baseline. Continue current management. (Esperanza Talamantes MD) Problem List: (1) Altered mental status Status: Resolved Plan: Initial concern of altered mental status was likely due to combination of DKA and rhabdomyolysis. Now improved, awake and alert. Patient does have baseline dementia. CT brain negative for acute abnormality 11/19/16 CT C-spine - grade I retrolisthesis C3 in relation C2 and C4 and C in relation Cf. Degenerative changes * Manage diabetes as below * Manage rhabdomyolysis / PRATIMA as below * Can be safely taken off stroke precautions * Monitor neuro status * Avoid sedating medications (2) Diabetic ketoacidosis Status: Resolved Plan: Likely due to not taking insulin in unspecified timeframe. Now resolved, stable off insulin drip. BGs ranging 100s-300s. * NS + bicarb @ 100 cc/hr. However will be cautious with IVFs given her history of heart failure. Crackles on exam today. Consider Lasix. Will discuss with nephrology * Diabetic diet * Decrease Levemir to 5 units BID given episodes of hypoglycemia (41 and 65) this morning. * Medium dose SSI * Bedside glucose TIDAC (3) Leukocytosis Status: Resolved Plan: On admission, WBC 15.7 with PMN predominance. However has resolved. CXR poorly inflated and rotated but showing questionable basilar consolidation -ID consulted, appreciate recommendations * Pt currently on meropenem; if cultures continue to be negative can discontinue per ID. Given worsening of renal function, concern for possible AIN. Will discontinue antibiotics given negative cultures. * Questionable h/o HIV due to having allergy to HIV meds, patient has no known history of HIV and has not been on HIV meds; HIV antibody pending. * Monitor CBC (4) Acute on chronic kidney failure Status: Acute Plan: Could be multifactorial (rhabdomyolysis, UTI, AIN, etc), total CK markedly elevated on admission but trending down to 638. However renal function continues to worsen, Cr. 6.05 UOP: stable for the past 24 hours. -Nephrology consulted, appreciate recommendations * NS + 150 mEq/L bicarb @ 100 cc/hr. However caution with IVF given history of HF. Bibasilar crackles noted on exam today. Could consider given small dose of Lasix. Will discuss with nephrology. * May need HD given worsening renal function * Monitor BMP * Avoid nephrotoxic agents (5) Rhabdomyolysis Status: Acute Plan: Improving on IVFs. Could also consider holding statin; however CPK improving. Repeat CPK in AM (6) Ecchymosis on examination Status: Acute Plan: Several large ecchymoses on exam. Patient with thrombocytopenia. Plts improved since yesterday HIT panel negative. Monitor clinically (7) Candidiasis of skin Status: Chronic Plan: Nystatin topically to affected areas as needed (8) Atrial fibrillation Status: Chronic Plan: Rate controlled, asymptomatic * Continue aspirin and plavix (CAD as well), consider stopping if patient develops active bleeding (9) Dementia Status: Chronic Plan: Continue home Aricept (10) Finger abrasion Status: Acute Plan: Reports pain, slight redness, and swelling in her right middle finger. Exam significant for small superficial abrasion on dorsal aspect of middle finger. Slightly erythematous but evidence of cellulitis or abscess. -Bactroban ointment (11) CHF, chronic Status: Chronic Plan: Stable, most recent Echo 11/19/16 showing normal EF (45-50%). Mild bibasilar crackles. Currently on IVFs for rhabdo. Will monitor closely. * Continue home Lopressor (12) Coronary artery disease Status: Chronic Plan: Continue home ASA, Plavix; consider holding if active bleeding develops NTG PRN for chest pain Monitor vitals, symptoms (13) Chronic obstructive lung disease Status: Chronic Plan: Stable * Oxygen as needed * Bronchodilators as needed (14) Depressed Status: Acute Plan: Could be reactive vs MDD * Continue Remeron 15 mg HS (15) FEN/PPX Status: Acute Plan: Fluids: NS + bicarb @ 100 cc/hr. Caution given history of HF. Will discuss with nephrology regarding d/c IVFs. Electrolytes: Monitor and replete as needed Nutrition: Diabetic diet (Edna Jansen MD R3) Problem List: (1) Altered mental status Status: Resolved Plan: Initial concern of altered mental status was likely due to combination of DKA and rhabdomyolysis. Now improved, awake and alert. Patient does have baseline dementia. CT brain negative for acute abnormality 11/19/16 CT C-spine - grade I retrolisthesis C3 in relation C2 and C4 and C in relation Cf. Degenerative changes * Manage diabetes as below * Manage rhabdomyolysis / PRATIMA as below * Can be safely taken off stroke precautions * Monitor neuro status * Avoid sedating medications (2) Diabetic ketoacidosis Status: Resolved Plan: Likely due to not taking insulin in unspecified timeframe. Now resolved, stable off insulin drip. BGs ranging 100s-300s. * NS + bicarb @ 100 cc/hr. However will be cautious with IVFs given her history of heart failure. Crackles on exam today. Consider Lasix. Will discuss with nephrology * Diabetic diet * Decrease Levemir to 5 units BID given episodes of hypoglycemia (41 and 65) this morning. * Medium dose SSI * Bedside glucose TIDAC (3) Leukocytosis Status: Resolved Plan: On admission, WBC 15.7 with PMN predominance. However has resolved. CXR poorly inflated and rotated but showing questionable basilar consolidation -ID consulted, appreciate recommendations * Pt currently on meropenem; if cultures continue to be negative can discontinue per ID. Given worsening of renal function, concern for possible AIN. Will discontinue antibiotics given negative cultures. * Questionable h/o HIV due to having allergy to HIV meds, patient has no known history of HIV and has not been on HIV meds; HIV antibody pending. * Monitor CBC (4) Acute on chronic kidney failure Status: Acute Plan: Could be multifactorial (rhabdomyolysis, UTI, AIN, etc), total CK markedly elevated on admission but trending down to 638. However renal function continues to worsen, Cr. 6.05 UOP: stable for the past 24 hours. -Nephrology consulted, appreciate recommendations * NS + 150 mEq/L bicarb @ 100 cc/hr. However caution with IVF given history of HF. Bibasilar crackles noted on exam today. Could consider given small dose of Lasix. Will discuss with nephrology. * May need HD given worsening renal function * Monitor BMP * Avoid nephrotoxic agents (5) Rhabdomyolysis Status: Acute Plan: Improving on IVFs. Could also consider holding statin; however CPK improving. Repeat CPK in AM (6) Ecchymosis on examination Status: Acute Plan: Several large ecchymoses on exam. Patient with thrombocytopenia. Plts improved since yesterday HIT panel negative. Monitor clinically (7) Candidiasis of skin Status: Chronic Plan: Nystatin topically to affected areas as needed (8) Atrial fibrillation Status: Chronic Plan: Rate controlled, asymptomatic * Continue aspirin and plavix (CAD as well), consider stopping if patient develops active bleeding (9) Dementia Status: Chronic Plan: Continue home Aricept (10) Finger abrasion Status: Acute Plan: Reports pain, slight redness, and swelling in her right middle finger. Exam significant for small superficial abrasion on dorsal aspect of middle finger. Slightly erythematous but evidence of cellulitis or abscess. -Bactroban ointment (11) CHF, chronic Status: Chronic Plan: Stable, most recent Echo 11/19/16 showing normal EF (45-50%). Mild bibasilar crackles. Currently on IVFs for rhabdo. Will monitor closely. * Continue home Lopressor (12) Coronary artery disease Status: Chronic Plan: Continue home ASA, Plavix; consider holding if active bleeding develops NTG PRN for chest pain Monitor vitals, symptoms (13) Chronic obstructive lung disease Status: Chronic Plan: Stable * Oxygen as needed * Bronchodilators as needed (14) Depressed Status: Acute Plan: Could be reactive vs MDD * Continue Remeron 15 mg HS (15) FEN/PPX Status: Acute Plan: Fluids: NS + bicarb @ 100 cc/hr. Caution given history of HF. Will discuss with nephrology regarding d/c IVFs. Electrolytes: Monitor and replete as needed Nutrition: Diabetic diet (Esperanza Talamantes MD) Problem Qualifiers (1) Altered mental status: Qualified Code: R40.2422 - Matthew coma scale total score 9-12, at arrival to emergency department (2) Diabetic ketoacidosis: Qualified Code: E13.10 - Diabetic ketoacidosis without coma associated with type 2 diabetes mellitus (3) Leukocytosis: Qualified Code: D72.825 - Bandemia (4) Rhabdomyolysis: Qualified Code: M62.82 - Non-traumatic rhabdomyolysis (5) Atrial fibrillation: Qualified Code: I48.2 - Chronic atrial fibrillation (6) Dementia: Qualified Code: G30.1 - Late onset Alzheimer's disease without behavioral disturbance (7) Coronary artery disease: Qualified Code: I25.118 - Coronary artery disease of [place] artery of [place] heart with stable angina pectoris Edna Jansen MD R3 Nov 24, 2016 14:56 Esperanza Talamantes MD Nov 24, 2016 20:01
[2016-11-24] MEDS: ACETAMINOPHEN 500 MG CPLT PO PRN (15:17)
--- NOTE | 2016-11-24 15:39 | PD.CARD.PN ---
Subjective Subjective Remarks Increased SOB. On nasal cannula. High IVF. Making some urine. Cr increasing. No major electrolyte abnormalities. Patient is not currently on tele. Objective Medications Current Medications Medications (Trade) Dose Ordered Sig/Francesca Route Start Time Stop Time Status Last Admin (NS Flush) 2 ml UNSCH PRN IVF 11/19/16 17:00 11/19/16 18:58 (Sodium Bicarbonate 8.4% Inj) 100 meq UNSCH PRN IV 11/19/16 18:45 Sodium Bicarbonate 50 meq 50 meq UNSCH PRN IV 11/19/16 18:45 (Vancomycin Consult Pharmacy) 0 ml @ 0 mls/hr UNSCH OTHER 11/19/16 22:30 (Protonix Inj) 40 mg DAILY IV 11/20/16 09:00 11/24/16 09:08 (Zofran Inj) 4 mg Q6H PRN IV 11/20/16 04:15 11/21/16 08:57 Miscellaneous Information 1 Q361D XX 11/20/16 04:15 11/20/16 04:15 (Chlorhexidine 2% Cloth) 3 pack Taper DAILY@04 TOP 11/21/16 04:00 11/17/17 03:59 11/23/16 04:00 (Chlorhexidine 2% Cloth) 3 pack UNSCH PRN TOP 11/20/16 04:15 (Mycostatin Cream) 1 applic Q12HR TOPICAL 11/20/16 09:00 11/24/16 11:49 (Plavix) 75 mg DAILY PO 11/21/16 09:00 11/24/16 09:09 (Aspirin Chew) 81 mg DAILY CHEW 11/21/16 09:00 11/24/16 09:08 (D50w (Vial) Inj) 25 ml UNSCH PRN IV PUSH 11/20/16 17:00 (Glucagon Inj) 1 mg UNSCH PRN OTHER 11/20/16 17:00 (NovoLOG SUPPLEMENTAL SCALE) 1 Q4HR SQ 11/20/16 16:00 11/24/16 11:49 (Vitamin D3) 2,000 units DAILY PO 11/21/16 14:15 11/24/16 09:08 (Heparin Inj) 5,000 units Q12HR SQ 11/21/16 21:00 11/24/16 09:09 (Lopressor) 25 mg Q12HR PO 11/21/16 14:00 11/24/16 09:08 (Remeron) 15 mg HS PO 11/23/16 21:00 11/23/16 21:38 Donepezil HCl 5 mg 5 mg HS PO 11/23/16 21:00 11/23/16 21:37 (Sodium Bicarbonate 8.4% Inj/NS 1000 ml Inj) 1,150 ml @ 70 mls/hr [id number] IV 11/23/16 12:00 11/24/16 04:23 (Levemir Inj) 5 units Q12HR SQ 11/24/16 09:00 11/24/16 09:06 (Bactroban 2% Oint) 1 applic Q12HR TOPICAL 11/24/16 10:00 11/24/16 11:49 (Tylenol) 500 mg Q4H PRN PO 11/24/16 13:30 (Roxicodone) 5 mg Q6H PRN PO 11/24/16 13:30 Vital Signs / I&O Vital Signs Date Time Temp Pulse Resp B/P Pulse Ox O2 Delivery O2 Flow Rate FiO2 11/24/16 12:00 95.5 84 18 151/69 11/24/16 09:57 93 Nasal Cannula 3.00 11/24/16 08:00 97.2 72 15 131/61 94 11/24/16 03:10 90 Nasal Cannula 3.00 11/24/16 00:00 98.0 92 20 118/70 96 11/23/16 21:31 99 21 11/23/16 20:00 98.2 96 20 122/69 94 11/23/16 16:00 98.7 73 22 128/54 100 I/O 11/23/16 11/23/16 11/23/16 11/24/16 11/24/16 11/24/16 07:00 15:00 23:00 07:00 15:00 23:00 Intake Total 1147 ml 1170 ml 840 ml 750 ml 921 ml Output Total 420 ml 250 ml 450 ml 650 ml 175 ml Balance 727 ml 920 ml 390 ml 100 ml 746 ml Intake Oral 360 ml 320 ml 260 ml 240 ml 240 ml IV Total 787 ml 850 ml 580 ml 510 ml 681 ml Output Urine Total 420 ml 250 ml 450 ml 650 ml 175 ml # Voids 1 # Bowel Movements 0 0 0 1 Physical Exam GENERAL: Elderly female, awake and oriented. SKIN: Warm and dry. ecchymosis left arm, redness right flank HEAD: Normocephalic. EYES: No scleral icterus. No injection or drainage. NECK: Supple, trachea midline. CARDIOVASCULAR: Regular rate and rhythm without murmurs, gallops, or rubs. RESPIRATORY: Breath sounds equal bilaterally. Bibasilar rales, nasal cannula GASTROINTESTINAL: Abdomen soft, non-tender, nondistended. MUSCULOSKELETAL: No cyanosis, or edema. BACK: Nontender without obvious deformity. Laboratory Laboratory Tests Test 11/24/16 11/24/16 04:55 09:10 White Blood Count 6.5 TH/MM3 Red Blood Count 3.68 MIL/MM3 Hemoglobin 9.9 GM/DL Hematocrit 29.7 % Mean Corpuscular Volume 80.5 FL Mean Corpuscular Hemoglobin 26.8 PG Mean Corpuscular Hemoglobin 33.3 % Concent Red Cell Distribution Width 15.1 % Platelet Count 103 TH/MM3 Mean Platelet Volume 8.4 FL Neutrophils (%) (Auto) 76.5 % Lymphocytes (%) (Auto) 10.5 % Monocytes (%) (Auto) 10.3 % Eosinophils (%) (Auto) 2.5 % Basophils (%) (Auto) 0.2 % Neutrophils # (Auto) 5.0 TH/MM3 Lymphocytes # (Auto) 0.7 TH/MM3 Monocytes # (Auto) 0.7 TH/MM3 Eosinophils # (Auto) 0.2 TH/MM3 Basophils # (Auto) 0.0 TH/MM3 CBC Comment DIFF FINAL Differential Comment Sodium Level 144 MEQ/L Potassium Level 4.1 MEQ/L Chloride Level 110 MEQ/L Carbon Dioxide Level 21.6 MEQ/L Anion Gap 12 MEQ/L Blood Urea Nitrogen 81 MG/DL Creatinine 6.05 MG/DL Estimat Glomerular Filtration 7 ML/MIN Rate Random Glucose 70 MG/DL Calcium Level 7.6 MG/DL Phosphorus Level 4.0 MG/DL Magnesium Level 1.7 MG/DL Total Creatine Kinase 638 U/L Creatine Kinase MB 2.5 NG/ML Creatine Kinase MB % 0.4 % Urine Color YELLOW Urine Turbidity CLOUDY Urine pH 6.0 Urine Specific [place] 1.011 Urine Protein 100 mg/dL Urine Glucose (UA) NEG mg/dL Urine Ketones NEG mg/dL Urine Occult Blood MOD Urine Nitrite NEG Urine Bilirubin NEG Urine Urobilinogen 2.0 MG/DL Urine Leukocyte Esterase LARGE Urine RBC 81 /hpf Urine WBC /hpf Urine WBC Clumps MANY Urine Transitional Epithelial 3 /hpf Cells Urine Bacteria MANY /hpf Urine Granular Casts /lpf Urine Yeast with Hyphae MANY Urine Yeast (Budding) MANY Microscopic Urinalysis Comment CATH-CULTURE IND Urine Eosinophils RARE /HPF Assessment and Plan Assessment and Plan ASSESSMENT Elevated troponin and T-wave flattening in an elderly female with known history of ASHD with last negative cardiac PET 2014. She denies recently chest pain. AMS/unconscious, found down. Work up reveals leukocytosis, lactic acidosis, DKA and rhabdomyolysis. Etiology of cause is not completely clear. ICD interrogation negative for acute arrhythmias Acute on chronic CKD due to above Atrial fibrillation with RVR since admission. Was on Eliquis prior to admission. Hx atrial flutter s/p ablation Hx SVT s/p ICD. HTN HLD Mild to moderate carotid stenosis HIV? PLAN Will wait to restart Eliquis. Patient my need vascath Continue BB Resume tele Lasix 20 mg IVP once Patient may need dialysis. The patient is not a candidate for cardiac cath at this time due to renal function. Pending clinical course, will consider inpatient stress test to exclude new ischemia. Assessment and plan discussed with Mallory Jaimes Nov 24, 2016 15:39
[2016-11-24] MEDS: RESP: ALBUTEROL 2.5 MG/3 ML NEB (PRN) INH ×2 (15:57→19:35)
[2016-11-24] MEDS ORDERED: FUROSEMIDE 20 MG/2 ML VIAL IV PUSH ONE (16:00)
[2016-11-24] MEDS: MIRTAZAPINE 15 MG TAB PO SCH (20:53)
[2016-11-24] MEDS: DONEPEZIL HCL 5 MG TAB PO SCH (20:53)
[2016-11-25] VITALS: BP 141/64; PULSE 81; RESP 20; TEMP 97.6; O2SAT 94
[2016-11-25] MEDS: MEDIUM DOSE INSULIN NOVOLOG SUPPLEMENTAL SCALE SQ SCH ×6 (02:58→20:00)
[2016-11-25 03:06] VITALS: O2SAT 94
[2016-11-25] MEDS: RESP: ALBUTEROL 2.5 MG/3 ML NEB (PRN) INH ×2 (03:06→12:06)
[2016-11-25 05:33] LABS: AUTOMATED NEUTROPHIL # 3.6 TH/MM3 (1.8-7.7); BASOPHIL % 0.3 % (0.0-2.0); EOSINOPHIL # 0.1 TH/MM3 (0-0.4); EOSINOPHIL % 1.7 % (0.0-4.0); HEMATOCRIT 27.8 % (35.0-46.0); HEMO FLAGS DIFF FINAL; LYMPHOCYTE # 0.4 TH/MM3 (1.0-4.8); MEAN CORPUSCULAR HEMOGLOBIN 28.5 PG (27.0-34.0); MEAN CORPUSCULAR HGB CONC 35.7 % (32.0-36.0); MONO % 8.5 % (0.0-8.0); NEUT % 81.5 % (16.0-70.0); PLATELET COUNT 108 TH/MM3 (150-450); RED BLOOD COUNT 3.47 MIL/MM3 (4.00-5.30); RED CELL DISTRIBUTION WIDTH 15.3 % (11.6-17.2); WHITE BLOOD COUNT 4.4 TH/MM3 (4.0-11.0)
[2016-11-25 05:58] LABS: BICARBONATE 22.6 MEQ/L (21.0-32.0); POTASSIUM 4.5 MEQ/L (3.5-5.1)
[2016-11-25 08:00] VITALS: BP 140/60; PULSE 84; RESP 16; TEMP 99.2; O2SAT 94
[2016-11-25] MEDS: METOPROLOL TARTRATE 25 MG TAB PO SCH ×2 (08:31→22:23)
[2016-11-25] MEDS: CLOPIDOGREL 75 MG TAB PO SCH (08:31)
[2016-11-25] MEDS: CHOLECALCIFEROL (VIT D3) 1000 UNIT TAB PO SCH (08:31)
[2016-11-25] MEDS: PANTOPRAZOLE SODIUM 40 MG VIAL IV SCH (08:32)
[2016-11-25] MEDS: HEPARIN SODIUM - SQ 10,000 UNITS/ML VIAL SQ SCH ×2 (08:32→22:23)
[2016-11-25] MEDS: ASPIRIN 81 MG CHEW TAB CHEW SCH (08:32)
[2016-11-25] MEDS: INSULIN DETEMIR 100 UNITS/ML VIAL SQ SCH ×2 (08:33→22:28)
[2016-11-25] MEDS: NYSTATIN 100,000 UNIT/GM CREAM 15 GM TOPICAL SCH ×2 (08:33→22:34)
[2016-11-25] MEDS: MUPIROCIN 2% OINT 22 GM TUBE TOPICAL SCH ×2 (08:33→22:34)
[2016-11-25 10:00] VITALS: O2SAT 87
--- NOTE | 2016-11-25 10:53 | RADRPT ---
EXAM DATE/TIME: 11/25/2016 10:28 [facility] COMPARISON: CHEST SINGLE AP, November 21, 2016, 4:32. INDICATIONS : Short of breath for two days, and productive cough. MEDICAL HISTORY : None. SURGICAL HISTORY : Pacemaker. CABG. ENCOUNTER: Subsequent ACUITY: 2 days PAIN SCORE: 0/10 LOCATION: Bilateral chest FINDINGS: Pacemaker device is noted with control pack over the left chest. There is mild perihilar and basilar pleura parenchymal opacity suggestive of developing edema and effusions. Cardiac silhouette is grossl y stable accounting for differences in projection. CONCLUSION: Developing edema and effusions. Edmond Jha MD on November 25, 2016 at 10:47 Board Certified Radiologist. This report was verified electronically.
--- NOTE | 2016-11-25 11:54 | HHI.NPPN ---
Subjective History of Present Illness This patient is a 76-year-old female. Patient is a poor historian and history primarily obtained from the records. According to the records I reviewed the patient has a history of diabetes mellitus, hypertension as well as HIV. Infectious disease is currently in consultation as well as critical care. The patient was admitted to this institution on November 19, 2016 after being found "down" in her apartment. On presentation to the hospital she was noted to have a blood sugar of 957 with a creatinine of 2.68 and initially a sodium of 133 as well as a total CO2 on BMP of 10.6. Beta hydroxybutyrate was elevated. Patient has been treated for DKA and serum sodium level as expected has increased as a glucose level has dropped. Creatinine level is slightly improved today at 2.56. There is also evidence of rhabdomyolysis on presentation with significantly elevated CK level and a urinalysis positive for large amount of blood but minimal rbc. Of interest patient was taking Crestor as an outpatient. Interval History The patient is not feeling well. Starting to get SOB---required Lasix last night. UOP decreasing. Confusion as per RN note. Poor appetite. (Kimi Platt) Review of Systems General Constitutional: Fatigue (Kimi Platt) Respiratory Lungs: SOB (Kimi Platt) Gastrointestinal GI Remarks Nausea, anorexia (Kimi Platt) Objective Data Data 11/24/16 11/25/16 19:00 07:00 Intake Total 921 ml 1470 ml Output Total 175 ml 400 ml Balance 746 ml 1070 ml Intake Oral 240 ml 360 ml IV Total 681 ml 1110 ml Output Urine Total 175 ml 400 ml # Voids 1 # Bowel Movements 1 0 Vital Signs Date Time Temp Pulse Resp B/P Pulse Ox O2 Delivery O2 Flow Rate FiO2 11/25/16 10:00 87 Nasal Cannula 3.00 11/25/16 08:00 99.2 84 16 140/60 94 11/25/16 03:06 94 Nasal Cannula 2.00 11/25/16 00:00 97.6 81 20 141/64 94 11/24/16 20:00 98.0 94 20 120/72 95 11/24/16 19:49 88 11/24/16 16:00 98.6 73 16 143/64 94 11/24/16 12:00 95.5 84 18 151/69 (Kimi Platt) -: 11/25/16 0455 11/25/16 0455 Medication Review Current Medications Medications (Trade) Dose Ordered Sig/Francesca Route Start Time Stop Time Status Last Admin (NS Flush) 2 ml UNSCH PRN IVF 11/19/16 17:00 11/19/16 18:58 (Sodium Bicarbonate 8.4% Inj) 100 meq UNSCH PRN IV 11/19/16 18:45 Sodium Bicarbonate 50 meq 50 meq UNSCH PRN IV 11/19/16 18:45 (Vancomycin Consult Pharmacy) 0 ml @ 0 mls/hr UNSCH OTHER 11/19/16 22:30 (Protonix Inj) 40 mg DAILY IV 11/20/16 09:00 11/25/16 08:32 (Zofran Inj) 4 mg Q6H PRN IV 11/20/16 04:15 11/21/16 08:57 Miscellaneous Information 1 Q361D XX 11/20/16 04:15 11/20/16 04:15 (Chlorhexidine 2% Cloth) 3 pack Taper DAILY@04 TOP 11/21/16 04:00 11/17/17 03:59 11/23/16 04:00 (Chlorhexidine 2% Cloth) 3 pack UNSCH PRN TOP 11/20/16 04:15 (Mycostatin Cream) 1 applic Q12HR TOPICAL 11/20/16 09:00 11/25/16 08:33 (Plavix) 75 mg DAILY PO 11/21/16 09:00 11/25/16 08:31 (Aspirin Chew) 81 mg DAILY CHEW 11/21/16 09:00 11/25/16 08:32 (D50w (Vial) Inj) 25 ml UNSCH PRN IV PUSH 11/20/16 17:00 (Glucagon Inj) 1 mg UNSCH PRN OTHER 11/20/16 17:00 (NovoLOG SUPPLEMENTAL SCALE) 1 Q4HR SQ 11/20/16 16:00 11/24/16 15:44 (Vitamin D3) 2,000 units DAILY PO 11/21/16 14:15 11/25/16 08:31 (Heparin Inj) 5,000 units Q12HR SQ 11/21/16 21:00 11/25/16 08:32 (Lopressor) 25 mg Q12HR PO 11/21/16 14:00 11/25/16 08:31 (Remeron) 15 mg HS PO 11/23/16 21:00 11/24/16 20:53 Donepezil HCl 5 mg 5 mg HS PO 11/23/16 21:00 11/24/16 20:53 (Sodium Bicarbonate 8.4% Inj/NS 1000 ml Inj) 1,150 ml @ 70 mls/hr [id number] IV 11/23/16 12:00 11/24/16 20:52 (Levemir Inj) 5 units Q12HR SQ 11/24/16 09:00 11/25/16 08:33 (Bactroban 2% Oint) 1 applic Q12HR TOPICAL 11/24/16 10:00 11/25/16 08:33 (Tylenol) 500 mg Q4H PRN PO 11/24/16 13:30 11/24/16 15:17 (Roxicodone) 5 mg Q6H PRN PO 11/24/16 13:30 (Kimi Platt) Physical Exam General Appearance: No Acute Distress, Comfortable, Pale, Malnourished (Kimi Platt) Pulmonary Resp Exam: Breath Sounds Equal, No Distress, Crackles (coarse crackles in the bases bilaterally) (Kimi Platt) Cardiology CV Exam: Regular, Normal Sinus Rhythm (Kimi Platt) Gastrointestinal/Abdomen GI Exam: Soft, Non-Tender (Kimi Platt) Integumentary Skin Exam: Clear, Warm (Kimi Platt) Extremeties Extremities Exam: Trace Edema (Kimi Platt) Neurologic Neuro Exam: Alert, Awake, Speech Clear, Moving All Extremities (Kimi Platt) Assessment/Plan Discussed Condition With: Patient Problem List: (1) PRATIMA (acute kidney injury) Plan: At this time, it appears that she has developed an ATN. Dialysis will be started today. Discussed in detail with the patient and her friend at her request. Has been made aware of potential complications including bleeding, infection, heart arrhythmia, and . She has verbally consented to proceed with both VasCath placement as well as dialysis. Will plan 1st treatment today with 2nd session tomorrow. We are hopeful this will be a temporary intervention, but this remains to be seen. Can take weeks and sometimes longer for a patient to recover from ATN renal failure, if they do recover--again, this has been discussed with her in great detail. alteration specialist aware. IR said pt could have lunch prior to VasCath placement. Medications should be adjusted for the patient's estimated GFR if clinically indicated. Avoid agents with significant potential for nephrotoxicity possible including NSAIDs for analgesia, iodine contrast agents. Gadolinium is contraindicated if the GFR is below 30. (2) Rhabdomyolysis Plan: Most likely secondary to compression injury while patient was on the floor. Patient was on a statin drug i.e. Crestor so uncertain to what degree this may have played a role also. (3) Sepsis Plan: Infectious disease following. (4) CKD (chronic kidney disease) stage 3, GFR 30-59 ml/min Plan: Secondary to nephrosclerosis of hypertension and aging. (5) Metabolic acidosis Plan: Improved. D/C IVF at this time (6) Vitamin D deficiency Plan: Vitamin D supplementation as ordered. (Kimi Platt) Plan The exam, history, and the medical decision-making described in the above note were completed with the assistance of the PA-C. I reviewed and agree with the findings presented. (Mario Valdes MD) Problem Qualifiers (1) Rhabdomyolysis: Qualified Code: M62.82 - Non-traumatic rhabdomyolysis Kimi Platt Nov 25, 2016 11:54 Mario Valdes MD Nov 26, 2016 16:58
[2016-11-25] MEDS ORDERED: SODIUM CHLOR 0.9% 1000 ML INJ 1,000 ML IV PRN ×2 (11:55)
[2016-11-25 12:00] VITALS: BP 138/67; PULSE 78; RESP 18; TEMP 98.6; O2SAT 95
[2016-11-25] MEDS ORDERED: MANNITOL 12.5 GM/50 ML VIAL IV PRN (12:00)
[2016-11-25] MEDS ORDERED: cloNIDine HCL 0.1 MG TAB PO PRN (12:00)
[2016-11-25] MEDS ORDERED: ONDANSETRON HCL 4 MG/2 ML VIAL IV PRN (12:00)
[2016-11-25] MEDS ORDERED: SODIUM CHLORIDE 0.9% FLUSH 10 ML FLUSH IV FLUSH PRN (12:00)
[2016-11-25] MEDS ORDERED: GELATIN 12 MM/7 MM FOAM TOP PRN (12:00)
[2016-11-25] MEDS ORDERED: diphenhydrAMINE HCL 25 MG CAP PO PRN (12:00)
[2016-11-25] MEDS ORDERED: NITROGLYCERIN 0.4 MG SL 25 TABS/BTL SL PRN (12:00)
--- NOTE | 2016-11-25 14:02 | HHI.IDPN ---
Subjective Subjective Remarks ID COVERAGE Patient was brought to the emergency department from a intermediate facility with altered mental status. Notes reviewed Temps ok To get vascath placement The patient is not feeling well. Had some SOB last night and got Lasix Has had some confusion Poor appetite. Cultures reviewed CXR with pulmonray edema Past Medical History 1. The past medical history of hypertension. 2. Diabetes mellitus 3. Chronic obstructive pulmonary disease. 4. Atrial fibrillation on chronic anticoagulation use 5. Peripheral arterial disease. 6. Chronic kidney disease 7. Dementia. 8. Myocardial infarction with history of V-tach. 9. Pacemaker / ICD implantation Coronary bypass graft surgery 1998 10. Cataract surgery 11. Hysterectomy Allergies: Coded Allergies: Cortisone (Verified Allergy, Severe, Rash, 11/12/16) Cortisone cream - rash on area that is apply Penicillin (Verified Allergy, Severe, Anaphylaxis, 11/12/16) Sulfa (Verified Allergy, Severe, Hives, 11/12/16) Hives on joints Cephalosporins (Verified Allergy, Unknown, 11/12/16) Codeine (Verified Allergy, Unknown, 11/12/16) Corticosteroids (Verified Allergy, Unknown, 11/12/16) Tizanidine (Verified Adverse Reaction, Severe, Dizziness, 11/12/16) Tetracyclines (Verified Adverse Reaction, Mild, 11/12/16) vomiting *MDRO Multi-Drug Resistant Organism (Verified Adverse Reaction, Unknown, ) MRSA (leg wound) 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 Vital Signs Date Time Temp Pulse Resp B/P Pulse Ox O2 Delivery O2 Flow Rate FiO2 11/25/16 12:00 98.6 78 18 138/67 95 11/25/16 10:00 87 Nasal Cannula 3.00 11/25/16 08:00 99.2 84 16 140/60 94 11/25/16 03:06 94 Nasal Cannula 2.00 11/25/16 00:00 97.6 81 20 141/64 94 11/24/16 20:00 98.0 94 20 120/72 95 11/24/16 19:49 88 11/24/16 16:00 98.6 73 16 143/64 94 11/24/16 11/24/16 11/25/16 15:00 23:00 07:00 Intake Total 921 ml 935 ml 535 ml Output Total 175 ml 400 ml Balance 746 ml 535 ml 535 ml Intake Oral 240 ml 360 ml IV Total 681 ml 575 ml 535 ml Output Urine Total 175 ml 400 ml # Voids 1 # Bowel Movements 1 0 . Laboratory Tests Test 11/24/16 11/25/16 04:55 04:55 White Blood Count 6.5 TH/MM3 4.4 TH/MM3 Red Blood Count 3.68 MIL/MM3 3.47 MIL/MM3 Hemoglobin 9.9 GM/DL 9.9 GM/DL Hematocrit 29.7 % 27.8 % Mean Corpuscular Volume 80.5 FL 80.0 FL Mean Corpuscular Hemoglobin 26.8 PG 28.5 PG Mean Corpuscular Hemoglobin 33.3 % 35.7 % Concent Red Cell Distribution Width 15.1 % 15.3 % Platelet Count 103 TH/MM3 108 TH/MM3 Mean Platelet Volume 8.4 FL 8.7 FL Neutrophils (%) (Auto) 76.5 % 81.5 % Lymphocytes (%) (Auto) 10.5 % 8.0 % Monocytes (%) (Auto) 10.3 % 8.5 % Eosinophils (%) (Auto) 2.5 % 1.7 % Basophils (%) (Auto) 0.2 % 0.3 % Neutrophils # (Auto) 5.0 TH/MM3 3.6 TH/MM3 Lymphocytes # (Auto) 0.7 TH/MM3 0.4 TH/MM3 Monocytes # (Auto) 0.7 TH/MM3 0.4 TH/MM3 Eosinophils # (Auto) 0.2 TH/MM3 0.1 TH/MM3 Basophils # (Auto) 0.0 TH/MM3 0.0 TH/MM3 CBC Comment DIFF FINAL DIFF FINAL Differential Comment Laboratory Tests Test 11/24/16 11/25/16 04:55 04:55 Sodium Level 144 MEQ/L 141 MEQ/L Potassium Level 4.1 MEQ/L 4.5 MEQ/L Chloride Level 110 MEQ/L 106 MEQ/L Carbon Dioxide Level 21.6 MEQ/L 22.6 MEQ/L Anion Gap 12 MEQ/L 12 MEQ/L Blood Urea Nitrogen 81 MG/DL 82 MG/DL Creatinine 6.05 MG/DL 6.19 MG/DL Estimat Glomerular Filtration 7 ML/MIN 7 ML/MIN Rate Random Glucose 70 MG/DL 118 MG/DL Calcium Level 7.6 MG/DL 7.5 MG/DL Phosphorus Level 4.0 MG/DL Magnesium Level 1.7 MG/DL Total Creatine Kinase 638 U/L Creatine Kinase MB 2.5 NG/ML Creatine Kinase MB % 0.4 % Microbiology Date/Time Procedure Status Source Growth 11/24/16 09:10 Urine Culture - Preliminary Resulted Urine Catheterized Urine [facility] Chest X-Ray 11/25/16 0000 Signed Impressions: Service Date/Time: Friday, November 25, 2016 10:28 - CONCLUSION: Developing edema and effusions. Edmond Jha MD Abdomen Ultrasound 11/21/16 0000 Signed Impressions: Service Date/Time: Monday, November 21, 2016 16:04 - CONCLUSION: 1. Dilated common bile duct measuring 11 mm. Correlation with alkaline phosphatase and bilirubin level is suggested to rule out biliary obstruction. 2. Thick-walled stone-containing gallbladder with minimal pericholecystic fluid. If there is clinical concern for acute cholecystitis a hepatobiliary scan may be helpful to confirm cystic duct obstruction. 3. Mild hepatomegaly. 4. Small right pleural effusion. 5. Trace ascites. 6. Poor visualization of the pancreas, abdominal aorta and inferior vena cava secondary to shadowing bowel gas. Joey Rosenthal MD Pelvis X-Ray 11/19/16 0000 Signed Impressions: Service Date/Time: Saturday, November 19, 2016 18:23 - CONCLUSION: 1. Moderate degenerative changes involving the hip joints bilaterally. 2. Degenerative changes involving the lower lumbar spine. 3. No acute fracture or dislocation. Joey Rosenthal MD Head CT 11/19/16 0000 Signed Impressions: Service Date/Time: Saturday, November 19, 2016 17:54 - CONCLUSION: No acute disease. Joey Rosenthal MD Cervical Spine CT 11/19/16 0000 Signed Impressions: Service Date/Time: Saturday, November 19, 2016 17:54 - CONCLUSION: 1. Extensive motion artifact particularly at C3 and C4 levels which limits interpretation of these levels. 2. Grade I retrolisthesis of C3 in relation to C4 and C2 as well as C4 in relation to C5. 3. Diffuse cervical spondylosis at C5-C6, C6- C7 and to a lesser extent at C4-C5 and C3-C4. 4. No acute fracture or prevertebral soft-tissue swelling. 5. Mild spinal stenosis at C5-C6. 6. Mild bilateral foraminal narrowing at C5-C6 and C6-C7 and to a lesser extent at C4- C5 and C3-C4. 7. Reversal of the normal cervical lordosis. Joey Rosenthal MD Physical Exam GENERAL: No acute distress. Alert and awake. HEENT: Pinl conjunctiva. NO icterus. Oropharynx: mucosa is dry. NECK: Supple. No adenopathy. No tenderness on palpation. LUNGS: Clear decreased breath sounds. HEART: Decreased BS at bases ABDOMEN: Bowel sounds present, soft, no tenderness appreciated. EXTREMITIES: No clubbing or cyanosis or edema. SKIN: No rash. NEUROLOGIC: No gross focal findings. PSYCHIATRIC: Calm and cooperative. Assessment & Plan Remarks IMPRESSION Sepsis in patient who presented with fever, tachycardia, leukocytosis, a lactic acidosis and altered mental status. Also the patient presented with acute kidney injury and DKA. Altered mental status. Improved. Appears back to baseline. Acute renal failure Pulmonary edema due to fluid overload Multiple antibiotic allergies. Leukocytosis.resolved RECOMMENDATIONS Stop Vancomycin Add Diflucan Monitor progress Monitor temps To be started on HD Janki Lieberman MD Nov 25, 2016 14:01 Janki Lieberman MD Nov 25, 2016 14:01
--- NOTE | 2016-11-25 14:58 | PD.RAD ---
Post Procedure Progress Note Pre Procedure Diagnosis: (1) SOB (shortness of breath) (2) Chronic kidney disease Post Procedure Diagnosis: (1) SOB (shortness of breath) (2) Chronic kidney disease (3) CHF, chronic Procedure Date: Nov 25, 2016 Supervising Radiologist: Chad Nelson Proceduralist/Assist: Annabelle Silverio, RT(R), Mandy Parker, RT(R) Anesthesia: Local Plan of Activity Patient to Unit: Other (Dialysis) Patient Condition: Fair See PACS Report for procedural detail/treatment Central Venous Access Device Procedure 1 Right Internal Jugular Hemodialysis Catheter Non-Tunneled Placement dual lumen [place]: 14 PICC Line Length (cm): 16 Findings: Patient extremely SOB. Catheter placed with patient upright in stretcher. Position confirmed with post procedural CXR Chad Nelson MD Nov 25, 2016 14:58
[2016-11-25] MEDS ORDERED: FUROSEMIDE 20 MG/2 ML VIAL IV PUSH ONE (15:00)
--- NOTE | 2016-11-25 15:56 | HHI.FPPN ---
Subjective Remarks Overnight no acute events. AFVSS. Continuing to have some pain in her back likely due to skin breakdown. No CP/SOB. No N/V but hates her pureed diet and wants a little more carbohydrate. Otherwise she had no concerns. (Anhtony Kimbrough MD R1) Objective Vitals Vital Signs Date Time Temp Pulse Resp B/P Pulse Ox O2 Delivery O2 Flow Rate FiO2 11/25/16 12:00 98.6 78 18 138/67 95 11/25/16 10:00 87 Nasal Cannula 3.00 11/25/16 08:00 99.2 84 16 140/60 94 11/25/16 03:06 94 Nasal Cannula 2.00 11/25/16 00:00 97.6 81 20 141/64 94 11/24/16 20:00 98.0 94 20 120/72 95 11/24/16 19:49 88 11/24/16 16:00 98.6 73 16 143/64 94 I/O 11/24/16 11/24/16 11/24/16 11/25/16 11/25/16 11/25/16 07:00 15:00 23:00 07:00 15:00 23:00 Intake Total 750 ml 921 ml 935 ml 535 ml 551 ml Output Total 650 ml 175 ml 400 ml 0 ml Balance 100 ml 746 ml 535 ml 535 ml 551 ml Intake Oral 240 ml 240 ml 360 ml 120 ml IV Total 510 ml 681 ml 575 ml 535 ml 431 ml Output Urine Total 650 ml 175 ml 400 ml 0 ml # Voids 1 # Bowel Movements 0 1 0 0 (Anthony Kimbrough MD R1) Result Diagram: 11/25/16 0455 11/25/16 0455 Imaging Last Impressions Chest X-Ray 11/25/16 0000 Signed Impressions: Service Date/Time: Friday, November 25, 2016 10:28 - CONCLUSION: Developing edema and effusions. Edmond Jha MD Abdomen Ultrasound 11/21/16 0000 Signed Impressions: Service Date/Time: Monday, November 21, 2016 16:04 - CONCLUSION: 1. Dilated common bile duct measuring 11 mm. Correlation with alkaline phosphatase and bilirubin level is suggested to rule out biliary obstruction. 2. Thick-walled stone-containing gallbladder with minimal pericholecystic fluid. If there is clinical concern for acute cholecystitis a hepatobiliary scan may be helpful to confirm cystic duct obstruction. 3. Mild hepatomegaly. 4. Small right pleural effusion. 5. Trace ascites. 6. Poor visualization of the pancreas, abdominal aorta and inferior vena cava secondary to shadowing bowel gas. Joey Rosenthal MD Pelvis X-Ray 11/19/16 0000 Signed Impressions: Service Date/Time: Saturday, November 19, 2016 18:23 - CONCLUSION: 1. Moderate degenerative changes involving the hip joints bilaterally. 2. Degenerative changes involving the lower lumbar spine. 3. No acute fracture or dislocation. Joey Rosenthal MD Head CT 11/19/16 0000 Signed Impressions: Service Date/Time: Saturday, November 19, 2016 17:54 - CONCLUSION: No acute disease. Joey Rosenthal MD Cervical Spine CT 11/19/16 0000 Signed Impressions: Service Date/Time: Saturday, November 19, 2016 17:54 - CONCLUSION: 1. Extensive motion artifact particularly at C3 and C4 levels which limits interpretation of these levels. 2. Grade I retrolisthesis of C3 in relation to C4 and C2 as well as C4 in relation to C5. 3. Diffuse cervical spondylosis at C5-C6, C6- C7 and to a lesser extent at C4-C5 and C3-C4. 4. No acute fracture or prevertebral soft-tissue swelling. 5. Mild spinal stenosis at C5-C6. 6. Mild bilateral foraminal narrowing at C5-C6 and C6-C7 and to a lesser extent at C4- C5 and C3-C4. 7. Reversal of the normal cervical lordosis. Joey Rosenthal MD Objective Remarks GENERAL: WDWN elderly white female sitting up in bed in [facility]. SKIN: Mild pallor. No rashes. Large ecchymosis covering left forearm and distal 1/3 of left upper arm on posteromedial side. Ecchymosis of right mid-arm, left hip. These are resolving from prior exams. Cool and dry. Stage 1-2 sacral decubitus ulcer right buttock near midline. Stage 1 pressure ulcer right upper back, b/l heels. CARDIOVASCULAR: NRRR. Normal S1/S2. No MRG RESPIRATORY: Mild crackles at b/l bases GASTROINTESTINAL: Abdomen soft, non-distended, and non-distended. MUSCULOSKELETAL: Small superficial abrasion on dorsal aspect of middle finger. Slightly erythematous but evidence of cellulitis or abscess. FROM. NEUROLOGICAL: Awake and alert. Moves all extremities without difficulty. Normal speech. Recalled daughter's that happened 6-7 years ago like it was a recent event. (Anthony Kimbrough MD R1) A/P Assessment and Plan 76 year old female with PMH of DM, AFib, COPD presenting with: Discharge Planning Anticipate discharge pending clinical improvement. Unclear timeframe. Acute on chronic kidney disease workup pending. s/d/w Dr. Talamantes and Dr. Kimbrough (Anthony Kimbrough MD R1) Attending Attestation Patient seen and examined, discussed with resident team. I agree with assessment and management as documented and discussed with me. Pt reports increased SOB today. She understands that she needs dialysis. Friend is at bedside, who is her person to notify, Leti. When discussing goals of care today, pt reports that "Life is ezra" and she wants to live as long as possible. She is willing to have dialysis, even if it is lifelong. (Esperanza Talamantes MD) Problem List: (1) Altered mental status Status: Resolved Plan: Initial concern of altered mental status was likely due to combination of DKA and rhabdomyolysis. Now improved, awake and alert. Patient does have baseline dementia. CT brain negative for acute abnormality 11/19/16 CT C-spine - grade I retrolisthesis C3 in relation C2 and C4 and C in relation Cf. Degenerative changes * Manage diabetes as below * Manage rhabdomyolysis / PRATIMA as below * Can be safely taken off stroke precautions * Monitor neuro status * Avoid sedating medications (2) Diabetic ketoacidosis Status: Resolved Plan: Likely due to not taking insulin in unspecified timeframe. Now resolved, stable off insulin drip. BGs ranging 100s-300s. * NS + bicarb @ 100 cc/hr. However will be cautious with IVFs given her history of heart failure. Crackles on exam today. Consider Lasix. Will discuss with nephrology * Diabetic diet * Decrease Levemir to 5 units BID given episodes of hypoglycemia (41 and 65) this morning. * Medium dose SSI * Bedside glucose TIDAC (3) Leukocytosis Status: Resolved Plan: On admission, WBC 15.7 with PMN predominance. However has resolved. CXR / showing pulmonary edema, no discrete infiltrate UA 4/ showing yeast, many bacteria; these likely represent colonization rather than true UTI UCx 11/24 growing michael albicans, likely colonization Mccord d/c'd 11/24 ID consulted, appreciate recommendations * S/p meropenem 11/20 - 11/24 * S/p vancomycin + flagyl 11/19 * Questionable h/o HIV due to having allergy to HIV meds, patient has no known history of HIV and has not been on HIV meds; HIV antibody negative * Monitor CBC (4) Acute on chronic kidney failure Status: Acute Plan: Could be multifactorial (rhabdomyolysis, UTI, AIN, etc), total CK markedly elevated on admission but trending down to 638. However renal function continues to worsen, Cr. 6.05 UOP: stable for the past 24 hours. -Nephrology consulted, appreciate recommendations * NS + 150 mEq/L bicarb @ 100 cc/hr. However caution with IVF given history of HF. Bibasilar crackles noted on exam today. Could consider given small dose of Lasix. Will discuss with nephrology. * May need HD given worsening renal function * Monitor BMP * Avoid nephrotoxic agents (5) Rhabdomyolysis Status: Acute Plan: Improving on IVFs. Could also consider holding statin; however CPK improving. Repeat CPK in AM (6) Ecchymosis on examination Status: Acute Plan: Several large ecchymoses on exam. Patient with thrombocytopenia. Plts improved since yesterday HIT panel negative. Monitor clinically (7) Candidiasis of skin Status: Chronic Plan: Nystatin topically to affected areas as needed (8) Atrial fibrillation Status: Chronic Plan: Rate controlled, asymptomatic * Continue aspirin and plavix (CAD as well), consider stopping if patient develops active bleeding (9) Dementia Status: Chronic Plan: Continue home Aricept (10) Finger abrasion Status: Acute Plan: Reports pain, slight redness, and swelling in her right middle finger. Exam significant for small superficial abrasion on dorsal aspect of middle finger. Slightly erythematous but evidence of cellulitis or abscess. -Bactroban ointment (11) CHF, chronic Status: Chronic Plan: Stable, most recent Echo 11/19/16 showing normal EF (45-50%). Mild bibasilar crackles. Currently on IVFs for rhabdo. Will monitor closely. CXR 11/25 showing pulmonary edema; mild crackles on exam * IV Lasix 20 mg once * Continue home Lopressor (12) Coronary artery disease Status: Chronic Plan: Continue home ASA, Plavix; consider holding if active bleeding develops NTG PRN for chest pain Monitor vitals, symptoms (13) Chronic obstructive lung disease Status: Chronic Plan: Stable * O2 titrated as needed * Bronchodilators as needed (14) Depressed Status: Acute Plan: Could be reactive vs MDD * Continue Remeron 15 mg HS (15) FEN/PPX Status: Acute Plan: Fluids: With dialysis. Caution on additional fluids given h/o HF Electrolytes: Monitor and replete as needed Nutrition: Renal diet per nephrology, mechanical soft consistency per speech therapy sdw Dr. Robbi Talamantes (16) Pressure ulcer Status: Acute Plan: See physical exam; several lesions noted on presentation to ICU * Wound care nurse consulted, appreciate recommendations * Topical ointments to promote healing * Air mattress * Rotate patient every 2 hours * Monitor clinically (Anthony Kimbrough MD R1) Problem Qualifiers (1) Altered mental status: Qualified Code: R40.2422 - [place] coma scale total score 9-12, at arrival to emergency department (2) Diabetic ketoacidosis: Qualified Code: E13.10 - Diabetic ketoacidosis without coma associated with type 2 diabetes mellitus (3) Leukocytosis: Qualified Code: D72.825 - Bandemia (4) Rhabdomyolysis: Qualified Code: M62.82 - Non-traumatic rhabdomyolysis (5) Atrial fibrillation: Qualified Code: I48.2 - Chronic atrial fibrillation (6) Dementia: Qualified Code: G30.1 - Late onset Alzheimer's disease without behavioral disturbance (7) Coronary artery disease: Qualified Code: I25.118 - Coronary artery disease of [place] artery of [place] heart with stable angina pectoris Anthony Kimbrough MD R1 Nov 25, 2016 15:56 Esperanza Talamantes MD Nov 25, 2016 19:40
--- NOTE | 2016-11-25 16:05 | PD.CONS ---
Consult Service Palliative Care Consult Requested By Dr. Kimbrough Primary Care Physician Esperanza Talamantes MD Reason for Consultation a. To assist with evaluation and management of symptoms including: pain b. To assist medical decision maker(s) with: better understanding of current medical conditions; weighing benefits/burdens of medical treatment options; making medical treatment decisions. HPI History of Present Illness 76-year-old with past medical history significant for COPD, CTD stage III, dementia, hypertension, A. fib, systolic heart failure, V. tach, STEMI, COPD and DM. Patient was brought into the ER via [facility] after being found unresponsive in her [facility] apartment 11/19/2016. EMS reported fingerstick blood sugar too high to be registered. Friend reported that patient had been taking a lot of nitroglycerin. In the ER: * Vitals: Temperature is 101.5, pulse is 102, respirations 20, blood pressure is 150/54, pulse was 95% on 2 L nasal cannula. * WBCs 15.7, H&H is 13.3 and 41.1, platelets 199. There is a left shift neutrophils 87.3% * Sodium was 133, potassium 12.3, chloride is 97, bicarbonate as 10.6, BUNs 42, creatinine is 2.68. Random glucose is 9057, lactic acid 3.7 * AST is 46, ALT is 23, alkaline phosphatase is 99, * Total CK is 1774, CK-MB 16.1, troponin I 0.51, total protein is 7.6, albumin 3.7 * Blood gas pH 7.26, PCO2 is 12, bicarbonate is 5, PO2 is 97 * PT is 11.5, INR is 1.0, PTT is 23.5 * Urine shows large amount of occult blood, urine glucose is at thousand, urine proteins 100, leukocyte esterase is negative urine nitrite is negative culture not indicated. * Nasal screen for MRSA is positive. * Pelvic x-ray, shows moderate degenerative changes involving the hip joints bilaterally. Degenerative changes involving the lower lower lumbar spine. No acute fractures or dislocation * Head CT no acute disease * Chest x-ray shows minimal patchiness within the left lung base consistent with atelectasis or mild infiltrate. * Cervical CT did not show any fractures. There is diffuse cervical spondylosis. Mild spinal stenosis C5 to C6. * Patient has sepsis, rhabdomyolysis, acute on chronic kidney insufficiency, diabetic ketoacidosis. Patient placed on DKA protocol, started on vancomycin and Flagyl as exact time. Patient was transferred to ICU and critical medicine was consulted. Patient transferred to the ICU and seen by truck sales manager. Patient on the allergy list noted HIV medication. HIV antibody test was ordered, which was negative. Patient placed on neuro checks. Albuterol nebulizers available. Patient had been taking nitroglycerin for chest pain and subsequently cardiology was consulted. Renal status was monitored, given IV hydration, and follow DKA protocol. Patient may have pneumonia, empirically treated with meropenem and vancomycin(patient has multiple allergies). 11/20/2016-cardiology came by and evaluated patient. Patient continued on heparin. Planned interrogation of pacemaker. May consider inpatient stress test to exclude new ischemia. 2-D echo was ordered which shows no wall motion abnormalities, mild to moderate MR, EF is 45-50%. Elevated troponins, but patient is not candidate for catheterization at this time. May consider inpatient stress test to exclude new ischemia. In the meantime blood sugars have been better controlled, IV insulin discontinued and sliding scale started. It is more awake and started to follow commands. Creatinine continued to be monitored, as 2.56. Nephrology was consulted Infectious disease was consulted. Renal ultrasound ordered to exclude occult obstruction. Continue meropenem, consider re-dosing vancomycin. Nephrology was consulted 11/21/2016 patient on heparin drip. Patient's device was interrogated and no eye with me present to correlate with recent unresponsive episode. Cardiology plan on stopping heparin infusion and start with heparin 5000 mg subcutaneous. Patient also started on metoprolol. Renal function has worsened from 3.48. Nephrology believes that patient sustaining significant injury in the kidney secondary to rhabdo dialysis and/or ATN. Abdominal ultrasound shows common bile duct measuring 11 mm. Correlation with alkaline phosphatase and bilirubin level is suggested to rule out biliary obstruction. A gallstone continuing gallbladder with minimal pericholecystic fluid. Has mild hepatomegaly. Small pleural effusion. Chest x-ray shows new mild bibasilar opacity. 11/22/2016-patient renal failure worsening again creatinine is 4.65 from 3.48. Urine output monitored, nephrology continued to follow. Cardiology continued to follow. Patient off heparin. Precision Assembly Inspector signs off , care transferred to [facility]. 11/23/2016-patient continued to be followed by nephrology. Unfortunately renal function continues to deteriorate and patient may need dialysis. May be temporary but this cannot be guaranteed. 11/24/2016-family medicine note reviewed. It is noted that patient speaks of daughter passing is a very if it is very recent, but that is years ago. Patient also reported that her son is still alive, despite son passing away in August. Patient may be more demented than baseline. Creatinine continues to increase to 6.05. 11/25/2016-given patient's worsening renal function, dialysis will be started today. Nephrology has met with patient and her friend and was made aware of " of potential complications including bleeding, infection, heart arrhythmia, and . She has verbally consented to proceed with both VasCath placement as well as dialysis." Nephrology so poor that this will be a temporary in intervention but this remains to be seen. Care was consulted to review goals of care. Function/Cognitive Trajectory Patient has some baseline dementia, lives in an [facility]. It is reported the patient 's daughter and son recently . Past Family Social History Coded Allergies: Cortisone (Verified Allergy, Severe, Rash, 11/12/16) Cortisone cream - rash on area that is apply Penicillin (Verified Allergy, Severe, Anaphylaxis, 11/12/16) Sulfa (Verified Allergy, Severe, Hives, 11/12/16) Hives on joints Cephalosporins (Verified Allergy, Unknown, 11/12/16) Codeine (Verified Allergy, Unknown, 11/12/16) Corticosteroids (Verified Allergy, Unknown, 11/12/16) Tizanidine (Verified Adverse Reaction, Severe, Dizziness, 11/12/16) Tetracyclines (Verified Adverse Reaction, Mild, 11/12/16) vomiting *MDRO Multi-Drug Resistant Organism (Verified Adverse Reaction, Unknown, ) MRSA (leg wound) 09/2012 and (finger wound) 09/2015 E-coli ESBL (urine) - 08/2013 MRSA PCR Screen POSITIVE - 11/20/2016 Uncoded Allergies: BETA LACTAMS (Allergy, Unknown, ., 09/26/15) UNK DARUNAVIR (Allergy, Unknown, ., 09/26/15) UNK OPIATES (Allergy, Unknown, ., 09/26/15) UNK AMPREVAVIR DERIVATIVES (Adverse Reaction, Unknown, ., 09/26/15) UNK Past Medical History COPD NSTEMI 2012 Vtach now s/p pacemaker ICD Systolic heart failure Atrial fibrillation on chronic anticoagulation Hypertension Peripheral arterial disease CKD stage III Dementia Past Surgical History 3 vessel CABG 1998 Cataract surgery Hysterectomy Pacemaker/ICD BTL Reported Medications Eliquis 2.5 po bid Nystatin Meclizine 50 po q12 Atenolol 25 po daily Crestor 40 mg po daily Lantus 58 untis subcut qhs Aricept 5 mg po qhs Plavix 75 mg po daily Current Medications Medications (Trade) Dose Ordered Sig/Francesca Route Start Time Stop Time Status Last Admin (NS Flush) 2 ml UNSCH PRN IVF 11/19/16 17:00 11/19/16 18:58 (Sodium Bicarbonate 8.4% Inj) 100 meq UNSCH PRN IV 11/19/16 18:45 (Sodium Bicarbonate 8.4% Inj) 50 meq UNSCH PRN IV 11/19/16 18:45 (Protonix Inj) 40 mg DAILY IV 11/20/16 09:00 11/25/16 08:32 (Zofran Inj) 4 mg Q6H PRN IV 11/20/16 04:15 11/21/16 08:57 Miscellaneous Information 1 Q361D XX 11/20/16 04:15 11/20/16 04:15 (Chlorhexidine 2% Cloth) 3 pack Taper DAILY@04 TOP 11/21/16 04:00 11/17/17 03:59 11/23/16 04:00 (Chlorhexidine 2% Cloth) 3 pack UNSCH PRN TOP 11/20/16 04:15 (Mycostatin Cream) 1 applic Q12HR TOPICAL 11/20/16 09:00 11/25/16 08:33 (Plavix) 75 mg DAILY PO 11/21/16 09:00 11/25/16 08:31 (Aspirin Chew) 81 mg DAILY CHEW 11/21/16 09:00 11/25/16 08:32 (D50w (Vial) Inj) 25 ml UNSCH PRN IV PUSH 11/20/16 17:00 (Glucagon Inj) 1 mg UNSCH PRN OTHER 11/20/16 17:00 (NovoLOG SUPPLEMENTAL SCALE) 1 Q4HR SQ 11/20/16 16:00 11/25/16 12:07 (Vitamin D3) 2,000 units DAILY PO 11/21/16 14:15 11/25/16 08:31 (Heparin Inj) 5,000 units Q12HR SQ 11/21/16 21:00 11/25/16 08:32 (Lopressor) 25 mg Q12HR PO 11/21/16 14:00 11/25/16 08:31 (Remeron) 15 mg HS PO 11/23/16 21:00 11/24/16 20:53 (Aricept) 5 mg HS PO 11/23/16 21:00 11/24/16 20:53 (Levemir Inj) 5 units Q12HR SQ 11/24/16 09:00 11/25/16 08:33 (Bactroban 2% Oint) 1 applic Q12HR TOPICAL 11/24/16 10:00 11/25/16 08:33 (Tylenol) 500 mg Q4H PRN PO 11/24/16 13:30 11/24/16 15:17 Oxycodone HCl 5 mg 5 mg Q6H PRN PO 11/24/16 13:30 (NS 1000 ml Inj) 1,000 ml @ 0 mls/hr Q0M PRN IV 11/25/16 11:55 Heparin Sodium (Porcine) 8000 units 8,000 units UNSCH PRN IVF 11/25/16 12:00 Sodium Chloride 1,000 ml @ 200 mls/hr Q5H PRN IV 11/25/16 11:55 (NS 1000 ml Inj) 1,000 ml @ 0 mls/hr Q0M PRN IV 11/25/16 11:55 (Mannitol Inj) 12.5 gm UNSCH PRN IV 11/25/16 12:00 (Albumin 25% Inj) 25 gm UNSCH PRN IV 11/25/16 12:00 (NS Flush) 5 ml UNSCH PRN IV FLUSH 11/25/16 12:00 (Heparin Inj) UNSCH PRN .XX 11/25/16 12:00 (Gentamicin (Dialysis) Inj) 20 mg UNSCH PRN IV 11/25/16 12:00 (Zofran Inj) 4 mg UNSCH PRN IV 11/25/16 12:00 (Tylenol) 650 mg UNSCH PRN PO 11/25/16 12:00 (Benadryl) 25 mg UNSCH PRN PO 11/25/16 12:00 (Nitrostat Sl) 0.4 mg UNSCH PRN SL 11/25/16 12:00 (Catapres) 0.1 mg UNSCH PRN PO 11/25/16 12:00 (Gelfoam 12 Mm/7 Mm Top) 1 foam UNSCH PRN TOP 11/25/16 12:00 (Diflucan) 100 mg DAILY PO 11/25/16 15:00 12/02/16 14:59 (Lasix Inj) 20 mg ONCE ONCE IV PUSH 11/25/16 15:00 11/25/16 15:01 Family History Grandmother: leukemia, heart disease Mother: smoker, unknown Father: heart disease one daughter on Hospice, Failure to Thrive diagnosis Son 08/2016 from Pancreatic Cancer Substance Use tobacco: 47 yrs, 2 pks a day, last 1998, denies alcohol, denies drug use Psychosocial History Boyfriend Johnnie 10/2011 of pneumonia, complication from a stroke Living Will: Copy in medical record (Living will completed 06/02/2011 designated Kelvin Dey as Health Care Surrogate.) Ethical and Legal Issues If patient is unable to speak for herself, she would like Leti Quiroz to speak for her ([phone]) (Anthony Kimbrough MD R1) Per Resident Note on 11/23/2016 Physical Exam Vital Signs Date Time Temp Pulse Resp B/P Pulse Ox O2 Delivery O2 Flow Rate FiO2 11/25/16 12:00 98.6 78 18 138/67 95 11/25/16 10:00 87 Nasal Cannula 3.00 11/25/16 08:00 99.2 84 16 140/60 94 11/25/16 03:06 94 Nasal Cannula 2.00 11/25/16 00:00 97.6 81 20 141/64 94 11/24/16 20:00 98.0 94 20 120/72 95 11/24/16 19:49 88 11/24/16 16:00 98.6 73 16 143/64 94 11/24/16 11/25/16 19:00 07:00 Intake Total 921 ml 1470 ml Output Total 175 ml 400 ml Balance 746 ml 1070 ml Intake Oral 240 ml 360 ml IV Total 681 ml 1110 ml Output Urine Total 175 ml 400 ml # Voids 1 # Bowel Movements 1 0 Exam DRAFT CONSTITUTIONAL/GENERAL: This is an adequately nourished patient, in no apparent distress. TUBES/LINES/DRAINS: SKIN: No jaundice, rashes, or lesions. Ecchymoses on upper extremities. No wounds seen anteriorly. Skin temperature appropriate. Not diaphoretic. HEAD: Atraumatic. Normocephalic. EYES: Pupils equal and round and reactive. Extraocular motions intact. No scleral icterus. No injection or drainage. Fundi not examined. ENT: Hearing grossly normal. Nose without bleeding or purulent drainage. Throat without visible erythema, exudates, masses, or lesions. NECK: Trachea midline. Supple, nontender. No palpable thyroid enlargement or nodularity. CARDIOVASCULAR: Regular rate and rhythm without murmurs, gallops, or rubs. No JVD. Peripheral pulses symmetric. RESPIRATORY/CHEST: Symmetric, unlabored respirations. Clear to auscultation. Breath sounds equal bilaterally. No wheezes, rales, or rhonchi. GASTROINTESTINAL: Abdomen soft, non-tender, nondistended. No hepato-splenomegaly , or palpable masses. No guarding. Bowel sounds present. GENITOURINARY: Without palpable bladder distension. Mccord catheter in place. MUSCULOSKELETAL: Extremities without clubbing, cyanosis, or edema. No joint tenderness or effusion noted. No calf tenderness. No mottling or clubbing. LYMPHATICS: No palpable cervical or supraclavicular adenopathy. NEUROLOGICAL: Awake and alert. Motor and sensory grossly within normal limits. Follows commands. Cognitively sharp. Moves all extremities. PSYCHIATRIC: No obvious anxiety/depression. no apparent hallucinations or other psychotic thought process. Diagnostic Tests Laboratory Laboratory Tests Test 11/23/16 11/24/16 11/24/16 11/25/16 05:33 04:55 09:10 04:55 White Blood Count 4.5 TH/MM3 6.5 TH/MM3 4.4 TH/MM3 (4.0-11.0) (4.0-11.0) (4.0-11.0) Red Blood Count 3.25 MIL/MM3 3.68 MIL/MM3 3.47 MIL/MM3 (4.00-5.30) (4.00-5.30) (4.00-5.30) Hemoglobin 8.8 GM/DL 9.9 GM/DL 9.9 GM/DL (11.6-15.3) (11.6-15.3) (11.6-15.3) Hematocrit 27.1 % 29.7 % 27.8 % (35.0-46.0) (35.0-46.0) (35.0-46.0) Mean Corpuscular Volume 83.4 FL 80.5 FL 80.0 FL (80.0-100.0) (80.0-100.0) (80.0-100.0) Mean Corpuscular Hemoglobin 27.2 PG 26.8 PG 28.5 PG (27.0-34.0) (27.0-34.0) (27.0-34.0) Mean Corpuscular Hemoglobin 32.6 % 33.3 % 35.7 % Concent (32.0-36.0) (32.0-36.0) (32.0-36.0) Red Cell Distribution Width 15.3 % 15.1 % 15.3 % (11.6-17.2) (11.6-17.2) (11.6-17.2) Platelet Count 72 TH/MM3 103 TH/MM3 108 TH/MM3 (150-450) (150-450) (150-450) Mean Platelet Volume 8.8 FL 8.4 FL 8.7 FL (7.0-11.0) (7.0-11.0) (7.0-11.0) Neutrophils (%) (Auto) 77.1 % 76.5 % 81.5 % (16.0-70.0) (16.0-70.0) (16.0-70.0) Lymphocytes (%) (Auto) 13.0 % 10.5 % 8.0 % (9.0-44.0) (9.0-44.0) (9.0-44.0) Monocytes (%) (Auto) 7.6 % (0.0-8.0) 10.3 % 8.5 % (0.0-8.0) (0.0-8.0) Eosinophils (%) (Auto) 2.1 % (0.0-4.0) 2.5 % (0.0-4.0) 1.7 % (0.0-4.0) Basophils (%) (Auto) 0.2 % (0.0-2.0) 0.2 % (0.0-2.0) 0.3 % (0.0-2.0) Neutrophils # (Auto) 3.5 TH/MM3 5.0 TH/MM3 3.6 TH/MM3 (1.8-7.7) (1.8-7.7) (1.8-7.7) Lymphocytes # (Auto) 0.6 TH/MM3 0.7 TH/MM3 0.4 TH/MM3 (1.0-4.8) (1.0-4.8) (1.0-4.8) Monocytes # (Auto) 0.3 TH/MM3 0.7 TH/MM3 0.4 TH/MM3 (0-0.9) (0-0.9) (0-0.9) Eosinophils # (Auto) 0.1 TH/MM3 0.2 TH/MM3 0.1 TH/MM3 (0-0.4) (0-0.4) (0-0.4) Basophils # (Auto) 0.0 TH/MM3 0.0 TH/MM3 0.0 TH/MM3 (0-0.2) (0-0.2) (0-0.2) CBC Comment DIFF FINAL DIFF FINAL DIFF FINAL Differential Comment Sodium Level 140 MEQ/L 144 MEQ/L 141 MEQ/L (136-145) (136-145) (136-145) Potassium Level 3.8 MEQ/L 4.1 MEQ/L 4.5 MEQ/L (3.5-5.1) (3.5-5.1) (3.5-5.1) Chloride Level 111 MEQ/L 110 MEQ/L 106 MEQ/L (98-107) (98-107) (98-107) Carbon Dioxide Level 15.6 MEQ/L 21.6 MEQ/L 22.6 MEQ/L (21.0-32.0) (21.0-32.0) (21.0-32.0) Anion Gap 13 MEQ/L (5-15) 12 MEQ/L (5-15) 12 MEQ/L (5-15) Blood Urea Nitrogen 74 MG/DL (7-18) 81 MG/DL (7-18) 82 MG/DL (7-18) Creatinine 5.52 MG/DL 6.05 MG/DL 6.19 MG/DL (0.50-1.00) (0.50-1.00) (0.50-1.00) Estimat Glomerular Filtration 8 ML/MIN (>89) 7 ML/MIN (>89) 7 ML/MIN (>89) Rate Random Glucose 342 MG/DL 70 MG/DL 118 MG/DL (74-106) (74-106) (74-106) Calcium Level 7.3 MG/DL 7.6 MG/DL 7.5 MG/DL (8.5-10.1) (8.5-10.1) (8.5-10.1) Protein Corrected Calcium 8.8 MG/DL (8.5-10.1) Total Bilirubin 0.6 MG/DL (0.2-1.0) Aspartate Amino Transf 58 U/L (15-37) (AST/SGOT) Alanine Aminotransferase 35 U/L (10-53) (ALT/SGPT) Alkaline Phosphatase 67 U/L (45-117) Total Protein 4.4 GM/DL (6.4-8.2) Albumin 1.7 GM/DL (3.4-5.0) Random Vancomycin Level 15.3 COMMENT 20.0 COMMENT Phosphorus Level 4.0 MG/DL (2.5-4.9) Magnesium Level 1.7 MG/DL (1.5-2.5) Total Creatine Kinase 638 U/L (26-192) Creatine Kinase MB 2.5 NG/ML (0.5-3.6) Creatine Kinase MB % 0.4 % (0.0-4.0) HIV (1&2) Antibody NEGATIVE (NEGATIVE) Urine Color YELLOW (YELLW/STRAW) Urine Turbidity CLOUDY (CLEAR) Urine pH 6.0 (5.0-8.5) Urine Specific [place] 1.011 (1.002-1.035) Urine Protein 100 mg/dL (NEG-TRACE) Urine Glucose (UA) NEG mg/dL (NEG) Urine Ketones NEG mg/dL (NEG) Urine Occult Blood MOD (NEG) Urine Nitrite NEG (NEG) Urine Bilirubin NEG (NEG) Urine Urobilinogen 2.0 MG/DL (LESS THAN 2.0) Urine Leukocyte Esterase LARGE (NEG) Urine RBC 81 /hpf (0-3) Urine WBC /hpf (0-5) Urine WBC Clumps MANY (NONE) Urine Transitional Epithelial 3 /hpf (NONE) Cells Urine Bacteria MANY /hpf (NONE) Urine Granular Casts /lpf (NONE) Urine Yeast with Hyphae MANY (NONE) Urine Yeast (Budding) MANY (NONE) Microscopic Urinalysis Comment CATH-CULTURE IND Urine Eosinophils RARE /HPF (NONE SEEN) Result Diagram: 11/25/16 0455 11/25/16 0455 Microbiology Microbiology Date/Time Procedure Status Source Growth 11/24/16 09:10 Urine Culture - Preliminary Resulted Urine Catheterized Urine [facility] Last Impressions Chest X-Ray 11/25/16 0000 Signed Impressions: Service Date/Time: Friday, November 25, 2016 10:28 - CONCLUSION: Developing edema and effusions. Edmond Jha MD Abdomen Ultrasound 11/21/16 0000 Signed Impressions: Service Date/Time: Monday, November 21, 2016 16:04 - CONCLUSION: 1. Dilated common bile duct measuring 11 mm. Correlation with alkaline phosphatase and bilirubin level is suggested to rule out biliary obstruction. 2. Thick-walled stone-containing gallbladder with minimal pericholecystic fluid. If there is clinical concern for acute cholecystitis a hepatobiliary scan may be helpful to confirm cystic duct obstruction. 3. Mild hepatomegaly. 4. Small right pleural effusion. 5. Trace ascites. 6. Poor visualization of the pancreas, abdominal aorta and inferior vena cava secondary to shadowing bowel gas. Joey Rosenthal MD Pelvis X-Ray 11/19/16 0000 Signed Impressions: Service Date/Time: Saturday, November 19, 2016 18:23 - CONCLUSION: 1. Moderate degenerative changes involving the hip joints bilaterally. 2. Degenerative changes involving the lower lumbar spine. 3. No acute fracture or dislocation. Joey Rosenthal MD Head CT 11/19/16 0000 Signed Impressions: Service Date/Time: Saturday, November 19, 2016 17:54 - CONCLUSION: No acute disease. Joey Rosenthal MD Cervical Spine CT 11/19/16 0000 Signed Impressions: Service Date/Time: Saturday, November 19, 2016 17:54 - CONCLUSION: 1. Extensive motion artifact particularly at C3 and C4 levels which limits interpretation of these levels. 2. Grade I retrolisthesis of C3 in relation to C4 and C2 as well as C4 in relation to C5. 3. Diffuse cervical spondylosis at C5-C6, C6- C7 and to a lesser extent at C4-C5 and C3-C4. 4. No acute fracture or prevertebral soft-tissue swelling. 5. Mild spinal stenosis at C5-C6. 6. Mild bilateral foraminal narrowing at C5-C6 and C6-C7 and to a lesser extent at C4- C5 and C3-C4. 7. Reversal of the normal cervical lordosis. Joey Rosenthal MD Patient/Family Conference Issues Discussed: * Palliative care role, purpose, approach * Additional medical, psychosocial, and spiritual history * Patients general health, functional status, and cognitive changes in the months leading up to the current hospitalization * Patient/family understanding of the current medical problems * Patient/family understanding of prognosis * Patients goals of care as best understood from advance directives and/or conversations and/or values * Current medical treatment options and benefits/burdens of those options * Likely scenarios comparing ongoing aggressive care with a transition to comfort measures only * Questions answered to the best of my ability * Palliative care contact information provided Assessment and Plan Disease Oriented Problem List: (1) DM (diabetes mellitus screen) (2) Sepsis (3) Rhabdomyolysis (4) Acute on chronic kidney failure (5) PRATIMA (acute kidney injury) (6) Chest pain Comment: reportedly taking many nitrates (7) Congestive heart failure (8) Atrial fibrillation (9) Dementia Comment: unsure what baseline is for patient. (10) CHF, chronic (11) Chronic obstructive lung disease Symptom Scale: Pertinent Non-Medical Issues Psychosocial: Spiritual: Legal: Ethical issues impacting care: Important Contacts Leti Quiroz [phone] (friend). [phone] Miles Dey (son) [phone]. Unsure if this is the son that has . Prognosis 76 year old with hx of cardiac disease (not card cath candidate currently) hx of arrhythmia, congestive heart failure. Pt came in with DKA, sepsis, elevated troponin, and renal failure. sugars are controlled, pt off heparin drip, sepsis resolved. Main challenge is renal failure- likely combination of rhambdo , ATN, and chronic renal insufficiency. Unsure if it is permanent. Would be appropriate for hospice if goals were in comfort measures only. Code Status: Full Code Plan == == Health Care surrogate- there is a health care surrogate/ Living will form completed in 2011. It list Kelvin Dey as health care surrogate. Thank you for the opportunity to participate in the care of Ms. Palomo. Attestation To help prompt me to consider important information that might be impacting today's encounter and assessment, information from prior notes written by myself or my colleagues may have been "brought forward" into today's note. My signature on this note, however, is an attestation that I personally performed the exam, history, and/or decision-making noted today, and, unless otherwise indicated, the interactions with patient, family, and staff as well as the review of records all occurred today. I also attest that the listed assessment and stated plan reflect my best clinical judgment today based on the combination of historical information, prior notes, and today's exam/ interactions. When time spent is documented, it refers only to time spent today by the signer, or if indicated, combined time spent today by collaborating physician/nurse practitioner. Joe Arreaga MD Nov 25, 2016 15:55
--- NOTE | 2016-11-25 16:26 | HHI.HCPN ---
Pt went to dialysis. Set up meeting with pt and friend at tomorrow. (friend requested 1:00 pm when she can be here). Joe Arreaga MD Nov 25, 2016 16:25
[2016-11-25] MEDS: GENTAMICIN SULFATE (DIALYSIS USE ONLY) 20 MG/2 ML VIAL IV PRN (16:35)
[2016-11-25] MEDS: HEPARIN SODIUM - IV 10,000 UNITS/10 ML VIAL IVF PRN (16:36)
[2016-11-25] MEDS: FLUCONAZOLE 100 MG TAB PO SCH (18:21)
[2016-11-25 20:00] VITALS: BP 119/66; PULSE 81; RESP 18; TEMP 95.9; O2SAT 93
--- NOTE | 2016-11-25 21:40 | RADRPT ---
EXAM DATE/TIME: 11/25/2016 14:15 [facility] COMPARISON: CHEST SINGLE AP, November 25, 2016, 10:28. INDICATIONS : Central line placement. MEDICAL HISTORY : Cardiovascular disease. Congestive heart failure. Hypertension. SURGICAL HISTORY : CABG. Pacemaker. ENCOUNTER: Subsequent ACUITY: 4 - 6 days PAIN SCORE: 5/10 LOCATION: Bilateral chest FINDINGS: Right internal jugular multilumen catheter has been placed and the tip is projected over the right at rium. No evidence of pneumothorax. There is increasing infiltrates with partial consolidation invol ving the mid and lower lungs on the right side in the left lower lung. This loss of delineation of b oth hemidiaphragms. Cardiac pacer leads and evidence of prior median sternotomy. The heart is rere l size. CONCLUSION: 1. Central in good position. No evidence of pneumothorax. 2. Increasing partially consolidative infiltrates, right greater than left. Juan F Sharma MD on November 25, 2016 at 21:38 Board Certified Radiologist. This report was verified electronically.
[2016-11-25] MEDS: DONEPEZIL HCL 5 MG TAB PO SCH (22:23)
[2016-11-25] MEDS: MIRTAZAPINE 15 MG TAB PO SCH (22:23)
[2016-11-26] VITALS (7 sets, daily range): BP systolic 120–144; BP diastolic 56–85; PULSE 79–96; RESP 12–28; TEMP 96.9–99.8; O2SAT 84–97
[2016-11-26] MEDS: MEDIUM DOSE INSULIN NOVOLOG SUPPLEMENTAL SCALE SQ SCH ×6 (00:27→23:05)
[2016-11-26] MEDS: RESP: ALBUTEROL 2.5 MG/3 ML NEB (PRN) INH ×2 (00:42→07:42)
[2016-11-26] MEDS: CHLORHEXIDINE GLUCONATE 2 % 1 PACK (2 CLOTHS) TOP SCH (03:54)
[2016-11-26 05:45] LABS: HEMATOCRIT 26.2 % (35.0-46.0); MEAN CELL VOLUME 80.6 FL (80.0-100.0); MEAN CORPUSCULAR HEMOGLOBIN 26.7 PG (27.0-34.0); MEAN CORPUSCULAR HGB CONC 33.1 % (32.0-36.0); PLATELET COUNT 102 TH/MM3 (150-450); RED BLOOD COUNT 3.25 MIL/MM3 (4.00-5.30); RED CELL DISTRIBUTION WIDTH 15.1 % (11.6-17.2); REVIEW FLAG FINAL; WHITE BLOOD COUNT 2.8 TH/MM3 (4.0-11.0)
[2016-11-26 06:11] LABS: BICARBONATE 28.3 MEQ/L (21.0-32.0); POTASSIUM 4.2 MEQ/L (3.5-5.1)
[2016-11-26] MEDS ORDERED: CALCIUM GLUCONATE INJ 1 GM in DEXTROSE 5% IN WATER 100ML INJ 100 ML IV ONE ×2 (06:30)
[2016-11-26] MEDS ORDERED: CALCIUM CARBONATE 500 MG CHEWABLE TAB CHEW ONE (06:30)
[2016-11-26] MEDS ORDERED: CALCIUM GLUCONATE INJ 1 GM in SODIUM CHLORIDE 0.9% INJ 100 ML IV ONE (07:00)
[2016-11-26] MEDS: ASPIRIN 81 MG CHEW TAB CHEW SCH (09:00)
[2016-11-26] MEDS: NYSTATIN 100,000 UNIT/GM CREAM 15 GM TOPICAL SCH ×2 (09:00→21:00)
[2016-11-26] MEDS ORDERED: FUROSEMIDE 40 MG/4 ML VIAL IV PUSH ONE (09:00)
[2016-11-26] MEDS: MUPIROCIN 2% OINT 22 GM TUBE TOPICAL SCH ×2 (09:00→21:00)
[2016-11-26 09:25] LABS: BICARBONATE 26.7 MEQ/L (21.0-32.0); MAGNESIUM 1.5 MG/DL (1.5-2.5); POTASSIUM 4.2 MEQ/L (3.5-5.1)
[2016-11-26] MEDS: INSULIN DETEMIR 100 UNITS/ML VIAL SQ SCH ×2 (09:46→23:06)
[2016-11-26] MEDS: HEPARIN SODIUM - SQ 10,000 UNITS/ML VIAL SQ SCH ×2 (09:47→23:06)
[2016-11-26] MEDS: CLOPIDOGREL 75 MG TAB PO SCH (09:47)
[2016-11-26] MEDS: CHOLECALCIFEROL (VIT D3) 1000 UNIT TAB PO SCH (09:47)
[2016-11-26] MEDS: METOPROLOL TARTRATE 25 MG TAB PO SCH ×2 (09:48→21:00)
[2016-11-26] MEDS: FLUCONAZOLE 100 MG TAB PO SCH (09:48)
[2016-11-26] MEDS: PANTOPRAZOLE SODIUM 40 MG VIAL IV SCH (09:49)
--- NOTE | 2016-11-26 10:00 | HHI.FPPN ---
Subjective Remarks Patient lying in bed, appears uncomfortable this morning. Has some use of accessory breathing muscle use. She has some increased coughing and sputum production. She is attempting to eat her breakfast. She reports breathing has gotten progressively worse since last night. She received hemodialysis yesterday and has vas-cath in place in her right neck. She has pain on her back at the site of the stage 1 skin breakdown. No chest pain or abdominal pain. No calf tenderness. Palliative care has been consulted and there is a meeting scheduled for today at 1 PM with patient and her friend. (Chato Culp MD R2 ) Objective Vitals Vital Signs Date Time Temp Pulse Resp B/P Pulse Ox O2 Delivery O2 Flow Rate FiO2 11/26/16 08:00 96.9 91 28 125/85 88 11/26/16 04:00 98.6 85 18 144/73 95 11/26/16 00:43 93 Nasal Cannula 4.00 11/26/16 00:00 97.7 79 18 135/72 97 11/25/16 20:00 95.9 81 18 119/66 93 11/25/16 12:00 98.6 78 18 138/67 95 11/25/16 10:00 87 Nasal Cannula 3.00 I/O 11/25/16 11/25/16 11/25/16 11/26/16 11/26/16 11/26/16 07:00 15:00 23:00 07:00 15:00 23:00 Intake Total 535 ml 551 ml 240 ml 0 ml Output Total 0 ml 4000 ml 0 ml Balance 535 ml 551 ml -3760 ml 0 ml Intake Oral 120 ml 240 ml 0 ml IV Total 535 ml 431 ml 0 ml 0 ml Output Urine Total 0 ml 0 ml 0 ml Hemodialysis 4000 ml # Bowel Movements 0 (Chato Culp MD R2) Result Diagram: 11/26/16 0505 11/26/16 0505 Imaging Last 72 hours Impressions Chest X-Ray 11/25/16 0000 Signed Impressions: Service Date/Time: Friday, November 25, 2016 14:15 - CONCLUSION: 1. Central in good position. No evidence of pneumothorax. 2. Increasing partially consolidative infiltrates, right greater than left. Juan F Sharma MD Chest X-Ray 11/25/16 0000 Signed Impressions: Service Date/Time: Friday, November 25, 2016 10:28 - CONCLUSION: Developing edema and effusions. Edmond Jha MD Objective Remarks GENERAL: Sitting up in bed, appears more uncomfortable than yesterday, some accessory muscle use for breathing, no acute distress, attempting to eat breakfast SKIN: Mild pallor. No rashes. Large ecchymosis covering left forearm and distal 1/3 of left upper arm on posteromedial side. Ecchymosis of right mid-arm, left hip. These are resolving from prior exams. Cool and dry. Stage 2 sacral decubitus ulcer right buttock near midline. Stage 1 pressure ulcer right upper back, b/l heels. CARDIOVASCULAR: NRRR. Normal S1/S2. No MRG RESPIRATORY: Significant wheezing throughout lungs, decreased sounds at the bases, dullness to percussion in the bases, some use of accessory muscles to breath, no acute distress GASTROINTESTINAL: Abdomen soft, non-distended, and non-distended. MUSCULOSKELETAL: Small superficial abrasion on dorsal aspect of middle finger. Slightly erythematous but evidence of cellulitis or abscess. FROM. NEUROLOGICAL: Awake and alert. Moves all extremities without difficulty. Normal speech. Baseline cognitive status, which includes mild confusion but overall oriented to place and situation. (Chato Culp MD R2) A/P Assessment and Plan 76 year old female with PMH of DM, AFib, COPD, CKD initially presented with DKA , rhabdomyolysis, and sepsis, now with resolved DKA, resolving rhabdomyolysis, but now with developing PRATIMA possibly due to ATN and requiring hemodialysis. Discharge Planning Will need rehabilitation/SNF placement on discharge. Palliative care is involved. s/d/w Dr. Kimbrough d/w Dr. Talamantes (Chato Culp MD R2) Attending Attestation Patient seen and examined, discussed with resident team. I agree with assessment and management as documented and discussed with me. Pt reports she is still SOB, but feels breathing has improved since dialysis yesterday. She tolerated dialysis well. She expressed understanding of benefits and risks of dialysis well. I feel she has capacity to make medical decisions. Appreciate palliative care. (Esperanza Talamantes MD) Problem List: (1) Acute on chronic kidney failure Status: Acute Plan: Likely multifactorial etiology, including rhabdomyolysis, ATN, cariogenic. Creatinine reached a peak of 6.19 with BUN of 82, with decreasing urinary output and increasing potassium level, and decision was made to initial hemodialysis. She received her first treatment yesterday and will receive another treatment today. - Nephrology on board - Hemodialysis as needed - Monitor I&O's, urine output - Avoid nephrotoxic agents - Renally dose medications - Monitor electrolytes - Monitor kidney function (2) Chronic obstructive lung disease Status: Acute Plan: Significant wheezing on examination this morning. Could be COPD exacerbation versus cardiac wheezing from CHF/pulmonary fluid overload. - Initiate DuoNeb treatments. - Allergic to corticosteroids. - Continue incentive spirometer, EZ Pap (3) CHF, chronic Status: Chronic Plan: History of congestive heart failure, with possible acute exacerbation with fluid overload, mild basilar crackles. Chest x-ray showing significant pulmonary edema. - Lasix once this morning for clinical fluid overload and pulmonary edema on chest x-ray, increasing dyspnea. - Continue Lopressor from home. - Monitor fluid status, daily I's and O's and weights. (4) Atrial fibrillation Status: Chronic Plan: Rate controlled, rhythm normal on examination today. Has ICD in place. - Cardiology on board - Was on Eneedo, held in anticipation of Vascath. Defer to cardiology on restarting. - Continue aspirin and Plavix (5) Coronary artery disease Status: Chronic Plan: Presented with elevated troponin and T-wave flattening and has a history of coronary artery disease. Had negative cardiac PET in 2015. No chest pain currently. - Cardiology on board. - Continue aspirin and Plavix. - Continue beta dex. - Stress test if clinical status improves. (6) Pressure ulcer Status: Acute Plan: See physical exam; several lesions noted on presentation to ICU. Do not appear acutely infected. - Wound care nurse consulted, appreciate recommendations - Topical ointments to promote healing - Air mattress - Rotate patient every 2 hours - Monitor clinically (7) Depressed Status: Acute Plan: Significant depression with recent loss of family members. Also with significant weight loss. - Remeron 15 mg HS for depression and appetite stimulation. (8) Rhabdomyolysis Status: Resolved Plan: Found down on ground, initially CK significantly elevated. Developed PRATIMA and rhabdomyolysis. CK trended down, but PRATIMA worsening. IVF discontinued due to fluid overload and dyspnea. (9) Dementia Status: Chronic Plan: Mild dementia, oriented to person place and situation, but not to time, mild confusion at baseline. - Continue home Aricept (10) FEN/PPX Status: Acute Plan: Fluids: With dialysis. Monitor fluid status routinely. Electrolytes: Monitor Nutrition: Renal diet, mechanical soft consistency per speech therapy (Chato Culp MD R2) Problem Qualifiers (1) Atrial fibrillation: Qualified Code: I48.2 - Chronic atrial fibrillation (2) Coronary artery disease: Qualified Code: I25.118 - Coronary artery disease of ruby artery of ruby heart with stable angina pectoris (3) Rhabdomyolysis: Qualified Code: M62.82 - Non-traumatic rhabdomyolysis (4) Dementia: Qualified Code: G30.1 - Late onset Alzheimer's disease without behavioral disturbance Chato Culp MD R2 Nov 26, 2016 10:00 Esperanza Talamantes MD Nov 26, 2016 16:51
[2016-11-26 10:05] LABS: CALCIUM-PROTEIN CORRECTED 8.6 MG/DL (8.5-10.1)
--- NOTE | 2016-11-26 10:25 | RADRPT ---
EXAM DATE/TIME: 11/25/2016 00:00 [facility] COMPARISON: No previous studies available for comparison. INDICATIONS : Patient with history of chronic kidney disease in need of dialysis catheter placement. MEDICAL HISTORY : Diabetes, HTN, HIV, COPD, A-Fib on chronic anticoagulation with Eliquis, NSTEMI 2012, PAD, CKD stage III, Systolic heart failure SURGICAL HISTORY : 3 vessel CABG 1998, Hysterectomy, Pacemaker ENCOUNTER: Initial ACUITY: 1 week PAIN SCORE: 0/10 IMAGE SERIES: 0 ACCESS: Right internal jugular vein DEVICE(S): 1.) 14 [place] single lumen 15 cm Schon catheter PROCEDURE : 1. Ultrasound guided venipuncture.. 2. Central line placement. The risks, benefits and alternatives to the procedure were explained and verbal and written consent w as obtained. The site was prepped in sterile fashion. Full sterile technique was used, including ca p, mask, sterile gloves and gown and a large sterile sheet. Hand hygiene and 2% chlorhexidine prep w as utilized per protocol for cutaneous antisepsis with appropriate dry time for site. Due to extreme shortness of breath and the inability to lie flat, access was obtained with the patien andrea upright in her stretcher. The skin and subcutaneous tissues were infiltrated with local anesthetic solution. A suitable site above the vein was selected with ultrasound guidance. A small incision wa s made. The vein was accessed under direct ultrasound visualization using the micropuncture techniqu e. The micropuncture set was exchanged for a 0.035 wire. The tract was dilated. The catheter was a dvanced into position. The catheter was fixed in place with suture and a sterile dressing was applie d. The patient tolerated the procedure well and there were no complications. CONCLUSION: Uncomplicated line placement as above. Postprocedural chest radiograph will be obtained to confirm position. Chad Nelson MD on November 26, 2016 at 10:21 Board Certified Radiologist. This report was verified electronically.
[2016-11-26] MEDS: ERGOCALCIFEROL (VIT D2) 50,000 UNIT CAP PO SCH (11:00)
[2016-11-26] MEDS: RESP: ALBUTEROL 2.5 MG/IPRATROPIUM 0.5 MG NEB (SCH) NEB ×3 (11:32→20:23)
--- NOTE | 2016-11-26 11:44 | PD.CONS ---
Consult Service Palliative Care Consult Requested By Dr. Kimbrough Primary Care Physician Esperanza Talamantes MD Reason for Consultation a. To assist with evaluation and management of symptoms including: pain, and dyspnea b. To assist medical decision maker(s) with: better understanding of current medical conditions; weighing benefits/burdens of medical treatment options; making medical treatment decisions. HPI History of Present Illness 76-year-old with past medical history significant for COPD, CTD stage III, dementia, hypertension, A. fib, systolic heart failure, V. tach, STEMI, COPD and DM. Patient was brought into the ER via [facility] after being found unresponsive in her [facility] apartment 11/19/2016. EMS reported fingerstick blood sugar too high to be registered. Friend reported that patient had been taking a lot of nitroglycerin. In the ER: * Vitals: Temperature is 101.5, pulse is 102, respirations 20, blood pressure is 150/54, pulse was 95% on 2 L nasal cannula. * WBCs 15.7, H&H is 13.3 and 41.1, platelets 199. There is a left shift neutrophils 87.3% * Sodium was 133, potassium 12.3, chloride is 97, bicarbonate as 10.6, BUNs 42, creatinine is 2.68. Random glucose is 9057, lactic acid 3.7 * AST is 46, ALT is 23, alkaline phosphatase is 99, * Total CK is 1774, CK-MB 16.1, troponin I 0.51, total protein is 7.6, albumin 3.7 * Blood gas pH 7.26, PCO2 is 12, bicarbonate is 5, PO2 is 97 * PT is 11.5, INR is 1.0, PTT is 23.5 * Urine shows large amount of occult blood, urine glucose is at thousand, urine proteins 100, leukocyte esterase is negative urine nitrite is negative culture not indicated. * Nasal screen for MRSA is positive. * Pelvic x-ray, shows moderate degenerative changes involving the hip joints bilaterally. Degenerative changes involving the lower lower lumbar spine. No acute fractures or dislocation * Head CT no acute disease * Chest x-ray shows minimal patchiness within the left lung base consistent with atelectasis or mild infiltrate. * Cervical CT did not show any fractures. There is diffuse cervical spondylosis. Mild spinal stenosis C5 to C6. * Patient has sepsis, rhabdomyolysis, acute on chronic kidney insufficiency, diabetic ketoacidosis. Patient placed on DKA protocol, started on vancomycin and Flagyl as exact time. Patient was transferred to ICU and critical medicine was consulted. Patient transferred to the ICU and seen by director of digital platforms. Patient on the allergy list noted HIV medication. HIV antibody test was ordered, which was negative. Patient placed on neuro checks. Albuterol nebulizers available. Patient had been taking nitroglycerin for chest pain and subsequently cardiology was consulted. Renal status was monitored, given IV hydration, and follow DKA protocol. Patient may have pneumonia, empirically treated with meropenem and vancomycin(patient has multiple allergies). 11/20/2016-cardiology came by and evaluated patient. Patient continued on heparin. Planned interrogation of pacemaker. May consider inpatient stress test to exclude new ischemia. 2-D echo was ordered which shows no wall motion abnormalities, mild to moderate MR, EF is 45-50%. Elevated troponins, but patient is not candidate for catheterization at this time. May consider inpatient stress test to exclude new ischemia. In the meantime blood sugars have been better controlled, IV insulin discontinued and sliding scale started. It is more awake and started to follow commands. Creatinine continued to be monitored, as 2.56. Nephrology was consulted Infectious disease was consulted. Renal ultrasound ordered to exclude occult obstruction. Continue meropenem, consider re-dosing vancomycin. Nephrology was consulted 11/21/2016 patient on heparin drip. Patient's device was interrogated and no eye with me present to correlate with recent unresponsive episode. Cardiology plan on stopping heparin infusion and start with heparin 5000 mg subcutaneous. Patient also started on metoprolol. Renal function has worsened from 3.48. Nephrology believes that patient sustaining significant injury in the kidney secondary to rhabdo dialysis and/or ATN. Abdominal ultrasound shows common bile duct measuring 11 mm. Correlation with alkaline phosphatase and bilirubin level is suggested to rule out biliary obstruction. A gallstone continuing gallbladder with minimal pericholecystic fluid. Has mild hepatomegaly. Small pleural effusion. Chest x-ray shows new mild bibasilar opacity. 11/22/2016-patient renal failure worsening again creatinine is 4.65 from 3.48. Urine output monitored, nephrology continued to follow. Cardiology continued to follow. Patient off heparin. [employer] signs off , care transferred to [facility]. 11/23/2016-patient continued to be followed by nephrology. Unfortunately renal function continues to deteriorate and patient may need dialysis. May be temporary but this cannot be guaranteed. 11/24/2016-family medicine note reviewed. It is noted that patient speaks of daughter passing is a very if it is very recent, but that is years ago. Patient also reported that her son is still alive, despite son passing away in August. Patient may be more demented than baseline. Creatinine continues to increase to 6.05. 11/25/2016-given patient's worsening renal function, dialysis will be started today. Nephrology has met with patient and her friend and was made aware of " of potential complications including bleeding, infection, heart arrhythmia, and . She has verbally consented to proceed with both VasCath placement as well as dialysis." Nephrology so poor that this will be a temporary in intervention but this remains to be seen. Palliative Care was consulted to review goals of care. On my exam pt is alert. She remembers her friend told her a doctor will be here at 1:00 to meet with her. I told her I was early to introduce myself. I came back at 1:00 pm. Friend later arrived at 1:30pm. Pt remembers my name. When ask if the víctor is usually green on a clear madhu day she state "false". When ask if grass on a well watered lawn is usually green, she states true. She is able to say she went to dialysis yesterday, and had the procedure because her kidneys "are bad." She is able to correctly say her name, place, year, and month. I introduced myself 1 hour prior to family meeting, and on my return, she is able to remember my name. She demonstrates ablility to have a basic understanding of her condition , and able to weigh risk and benefits. Goals of care, HCS, code status reviewed with patient. Function/Cognitive Trajectory Has been getting weaker, and more difficult to take care of self. She state her son past away, and fells her other children abandoned her. Review of Systems ROS Limitations: Clinical Condition Constitutional: COMPLAINS OF: Fatigue Respiratory: COMPLAINS OF: Wheezing Cardiovascular: COMPLAINS OF: Chest pain, Syncope, Dyspnea on Exertion Neurologic: COMPLAINS OF: Poor Balance Psychiatric: COMPLAINS OF: Anxiety Past Family Social History Coded Allergies: Cortisone (Verified Allergy, Severe, Rash, 11/12/16) Cortisone cream - rash on area that is apply Penicillin (Verified Allergy, Severe, Anaphylaxis, 11/12/16) Sulfa (Verified Allergy, Severe, Hives, 11/12/16) Hives on joints Cephalosporins (Verified Allergy, Unknown, 11/12/16) Codeine (Verified Allergy, Unknown, 11/12/16) Corticosteroids (Verified Allergy, Unknown, 11/12/16) Tizanidine (Verified Adverse Reaction, Severe, Dizziness, 11/12/16) Tetracyclines (Verified Adverse Reaction, Mild, 11/12/16) vomiting *MDRO Multi-Drug Resistant Organism (Verified Adverse Reaction, Unknown, ) MRSA (leg wound) 09/2012 and (finger wound) 09/2015 E-coli ESBL (urine) - 08/2013 MRSA PCR Screen POSITIVE - 11/20/2016 Uncoded Allergies: BETA LACTAMS (Allergy, Unknown, ., 09/26/15) UNK DARUNAVIR (Allergy, Unknown, ., 09/26/15) UNK OPIATES (Allergy, Unknown, ., 09/26/15) UNK AMPREVAVIR DERIVATIVES (Adverse Reaction, Unknown, ., 09/26/15) UNK Past Medical History COPD NSTEMI 2012 Vtach now s/p pacemaker ICD Systolic heart failure Atrial fibrillation on chronic anticoagulation Hypertension Peripheral arterial disease CKD stage III Dementia Past Surgical History 3 vessel CABG 1998 Cataract surgery Hysterectomy Pacemaker/ICD BTL Reported Medications Eliquis 2.5 po bid Nystatin Meclizine 50 po q12 Atenolol 25 po daily Crestor 40 mg po daily Lantus 58 untis subcut qhs Aricept 5 mg po qhs Plavix 75 mg po daily Current Medications Medications (Trade) Dose Ordered Sig/Francesca Route Start Time Stop Time Status Last Admin (NS Flush) 2 ml UNSCH PRN IVF 11/19/16 17:00 11/19/16 18:58 (Sodium Bicarbonate 8.4% Inj) 100 meq UNSCH PRN IV 11/19/16 18:45 (Sodium Bicarbonate 8.4% Inj) 50 meq UNSCH PRN IV 11/19/16 18:45 (Protonix Inj) 40 mg DAILY IV 11/20/16 09:00 11/26/16 09:49 (Zofran Inj) 4 mg Q6H PRN IV 11/20/16 04:15 11/21/16 08:57 Miscellaneous Information 1 Q361D XX 11/20/16 04:15 11/20/16 04:15 (Chlorhexidine 2% Cloth) Taper DAILY@04 TOP 11/21/16 04:00 11/17/17 03:59 11/23/16 04:00 (Chlorhexidine 2% Cloth) 3 pack UNSCH PRN TOP 11/20/16 04:15 (Mycostatin Cream) 1 applic Q12HR TOPICAL 11/20/16 09:00 11/26/16 09:00 (Plavix) 75 mg DAILY PO 11/21/16 09:00 11/26/16 09:47 (Aspirin Chew) 81 mg DAILY CHEW 11/21/16 09:00 11/25/16 08:32 (D50w (Vial) Inj) 25 ml UNSCH PRN IV PUSH 11/20/16 17:00 (Glucagon Inj) 1 mg UNSCH PRN OTHER 11/20/16 17:00 (NovoLOG SUPPLEMENTAL SCALE) 1 Q4HR SQ 11/20/16 16:00 11/26/16 00:27 (Vitamin D3) 2,000 units DAILY PO 11/21/16 14:15 11/26/16 09:47 (Heparin Inj) 5,000 units Q12HR SQ 11/21/16 21:00 11/26/16 09:47 (Lopressor) 25 mg Q12HR PO 11/21/16 14:00 11/26/16 09:48 (Remeron) 15 mg HS PO 11/23/16 21:00 11/25/16 22:23 (Aricept) 5 mg HS PO 11/23/16 21:00 11/25/16 22:23 (Levemir Inj) 5 units Q12HR SQ 11/24/16 09:00 11/26/16 09:46 (Bactroban 2% Oint) 1 applic Q12HR TOPICAL 11/24/16 10:00 11/26/16 09:00 (Tylenol) 500 mg Q4H PRN PO 11/24/16 13:30 11/24/16 15:17 Oxycodone HCl 5 mg 5 mg Q6H PRN PO 11/24/16 13:30 (NS 1000 ml Inj) 1,000 ml @ 0 mls/hr Q0M PRN IV 11/25/16 11:55 Heparin Sodium (Porcine) 8000 units 8,000 units UNSCH PRN IVF 11/25/16 12:00 11/25/16 16:36 Sodium Chloride 1,000 ml @ 200 mls/hr Q5H PRN IV 11/25/16 11:55 (NS 1000 ml Inj) 1,000 ml @ 0 mls/hr Q0M PRN IV 11/25/16 11:55 (Mannitol Inj) 12.5 gm UNSCH PRN IV 11/25/16 12:00 (Albumin 25% Inj) 25 gm UNSCH PRN IV 11/25/16 12:00 (NS Flush) 5 ml UNSCH PRN IV FLUSH 11/25/16 12:00 (Heparin Inj) UNSCH PRN .XX 11/25/16 12:00 (Gentamicin (Dialysis) Inj) 20 mg UNSCH PRN IV 11/25/16 12:00 11/25/16 16:35 (Zofran Inj) 4 mg UNSCH PRN IV 11/25/16 12:00 (Tylenol) 650 mg UNSCH PRN PO 11/25/16 12:00 (Benadryl) 25 mg UNSCH PRN PO 11/25/16 12:00 (Nitrostat Sl) 0.4 mg UNSCH PRN SL 11/25/16 12:00 (Catapres) 0.1 mg UNSCH PRN PO 11/25/16 12:00 (Gelfoam 12 Mm/7 Mm Top) 1 foam UNSCH PRN TOP 11/25/16 12:00 (Diflucan) 100 mg DAILY PO 11/25/16 15:00 12/02/16 14:59 11/26/16 09:48 (Drisdol) 50,000 units Q7D PO 11/26/16 07:00 11/26/16 11:00 Family History Grandmother: leukemia, heart disease Mother: smoker, unknown Father: heart disease one daughter on Hospice, Failure to Thrive diagnosis Son 08/2016 from Pancreatic Cancer Substance Use Tobacco: Alcohol: Prescription med abuse: Illicits: Psychosocial History Has 2 surviving children (2 sons) Miles Dey and another daughter . Has Living will that List Kelvin Dey as surrogate. Spiritual/Cultural Factors listed as none Living Will: Copy in medical record (Living will completed 06/02/2011 designated Kelvin Dey as Health Care Surrogate.) Health Care Surrogate: Copy in medical record Physical Exam Vital Signs Date Time Temp Pulse Resp B/P Pulse Ox O2 Delivery O2 Flow Rate FiO2 11/26/16 08:00 96.9 91 28 125/85 88 11/26/16 04:00 98.6 85 18 144/73 95 11/26/16 00:43 93 Nasal Cannula 4.00 11/26/16 00:00 97.7 79 18 135/72 97 11/25/16 20:00 95.9 81 18 119/66 93 11/25/16 12:00 98.6 78 18 138/67 95 11/25/16 11/26/16 19:00 07:00 Intake Total 551 ml 240 ml Output Total 4000 ml 0 ml Balance -3449 ml 240 ml Intake Oral 120 ml 240 ml IV Total 431 ml 0 ml Output Urine Total 0 ml 0 ml Hemodialysis 4000 ml # Bowel Movements 0 Exam CONSTITUTIONAL/GENERAL: This is an adequately nourished patient, some mild dyspnea, but able to converse well. Able to eat lunch. SKIN: No jaundice, rashes, or lesions. Ecchymoses on upper extremities. No wounds seen anteriorly. Skin temperature appropriate. Not diaphoretic. HEAD: Atraumatic. Normocephalic. EYES: Pupils equal and round and reactive. Extraocular motions intact. No scleral icterus. No injection or drainage. Fundi not examined. ENT: Hearing grossly normal. Nose without bleeding or purulent drainage. Throat without visible erythema, exudates, masses, or lesions. NECK: Trachea midline. Supple, nontender. No palpable thyroid enlargement or nodularity. CARDIOVASCULAR: tachcardia without murmurs, gallops, or rubs. No JVD. Peripheral pulses symmetric. RESPIRATORY/CHEST: Symmetric, unlabored respirations. Clear to auscultation. Breath sounds equal bilaterally. No wheezes, rales, or rhonchi. GASTROINTESTINAL: Abdomen soft, some tenderness on palpation, nondistended. No hepato-splenomegaly, or palpable masses. No guarding. Bowel sounds present. GENITOURINARY: Without palpable bladder distension. Mccord catheter in place. MUSCULOSKELETAL: Extremities without clubbing, cyanosis, or edema. No joint tenderness or effusion noted. No calf tenderness. No mottling or clubbing. LYMPHATICS: No palpable cervical or supraclavicular adenopathy. NEUROLOGICAL: Awake and alert. Motor and sensory grossly within normal limits. Follows commands. Cognitively sharp, mild memory problems.. Moves all extremities. PSYCHIATRIC: Feels depress/ griefing about lost of son recently. Diagnostic Tests Laboratory Laboratory Tests Test 11/24/16 11/24/16 11/25/16 11/26/16 04:55 09:10 04:55 05:05 White Blood Count 6.5 TH/MM3 4.4 TH/MM3 2.8 TH/MM3 (4.0-11.0) (4.0-11.0) (4.0-11.0) Red Blood Count 3.68 MIL/MM3 3.47 MIL/MM3 3.25 MIL/MM3 (4.00-5.30) (4.00-5.30) (4.00-5.30) Hemoglobin 9.9 GM/DL 9.9 GM/DL 8.7 GM/DL (11.6-15.3) (11.6-15.3) (11.6-15.3) Hematocrit 29.7 % 27.8 % 26.2 % (35.0-46.0) (35.0-46.0) (35.0-46.0) Mean Corpuscular Volume 80.5 FL 80.0 FL 80.6 FL (80.0-100.0) (80.0-100.0) (80.0-100.0) Mean Corpuscular Hemoglobin 26.8 PG 28.5 PG 26.7 PG (27.0-34.0) (27.0-34.0) (27.0-34.0) Mean Corpuscular Hemoglobin 33.3 % 35.7 % 33.1 % Concent (32.0-36.0) (32.0-36.0) (32.0-36.0) Red Cell Distribution Width 15.1 % 15.3 % 15.1 % (11.6-17.2) (11.6-17.2) (11.6-17.2) Platelet Count 103 TH/MM3 108 TH/MM3 102 TH/MM3 (150-450) (150-450) (150-450) Mean Platelet Volume 8.4 FL 8.7 FL 8.3 FL (7.0-11.0) (7.0-11.0) (7.0-11.0) Neutrophils (%) (Auto) 76.5 % 81.5 % (16.0-70.0) (16.0-70.0) Lymphocytes (%) (Auto) 10.5 % 8.0 % (9.0-44.0) (9.0-44.0) Monocytes (%) (Auto) 10.3 % 8.5 % (0.0-8.0) (0.0-8.0) Eosinophils (%) (Auto) 2.5 % (0.0-4.0) 1.7 % (0.0-4.0) Basophils (%) (Auto) 0.2 % (0.0-2.0) 0.3 % (0.0-2.0) Neutrophils # (Auto) 5.0 TH/MM3 3.6 TH/MM3 (1.8-7.7) (1.8-7.7) Lymphocytes # (Auto) 0.7 TH/MM3 0.4 TH/MM3 (1.0-4.8) (1.0-4.8) Monocytes # (Auto) 0.7 TH/MM3 0.4 TH/MM3 (0-0.9) (0-0.9) Eosinophils # (Auto) 0.2 TH/MM3 0.1 TH/MM3 (0-0.4) (0-0.4) Basophils # (Auto) 0.0 TH/MM3 0.0 TH/MM3 (0-0.2) (0-0.2) CBC Comment DIFF FINAL DIFF FINAL Differential Comment Sodium Level 144 MEQ/L 141 MEQ/L 140 MEQ/L (136-145) (136-145) (136-145) Potassium Level 4.1 MEQ/L 4.5 MEQ/L 4.2 MEQ/L (3.5-5.1) (3.5-5.1) (3.5-5.1) Chloride Level 110 MEQ/L 106 MEQ/L 102 MEQ/L (98-107) (98-107) (98-107) Carbon Dioxide Level 21.6 MEQ/L 22.6 MEQ/L 26.7 MEQ/L (21.0-32.0) (21.0-32.0) (21.0-32.0) Anion Gap 12 MEQ/L (5-15) 12 MEQ/L (5-15) 11 MEQ/L (5-15) Blood Urea Nitrogen 81 MG/DL (7-18) 82 MG/DL (7-18) 49 MG/DL (7-18) Creatinine 6.05 MG/DL 6.19 MG/DL 4.74 MG/DL (0.50-1.00) (0.50-1.00) (0.50-1.00) Estimat Glomerular Filtration 7 ML/MIN (>89) 7 ML/MIN (>89) 9 ML/MIN (>89) Rate Random Glucose 70 MG/DL 118 MG/DL 102 MG/DL (74-106) (74-106) (74-106) Calcium Level 7.6 MG/DL 7.5 MG/DL 7.3 MG/DL (8.5-10.1) (8.5-10.1) (8.5-10.1) Phosphorus Level 4.0 MG/DL 3.7 MG/DL (2.5-4.9) (2.5-4.9) Magnesium Level 1.7 MG/DL 1.5 MG/DL (1.5-2.5) (1.5-2.5) Total Creatine Kinase 638 U/L (26-192) Creatine Kinase MB 2.5 NG/ML (0.5-3.6) Creatine Kinase MB % 0.4 % (0.0-4.0) HIV (1&2) Antibody NEGATIVE (NEGATIVE) Urine Color YELLOW (YELLW/STRAW) Urine Turbidity CLOUDY (CLEAR) Urine pH 6.0 (5.0-8.5) Urine Specific [place] 1.011 (1.002-1.035) Urine Protein 100 mg/dL (NEG-TRACE) Urine Glucose (UA) NEG mg/dL (NEG) Urine Ketones NEG mg/dL (NEG) Urine Occult Blood MOD (NEG) Urine Nitrite NEG (NEG) Urine Bilirubin NEG (NEG) Urine Urobilinogen 2.0 MG/DL (LESS THAN 2.0) Urine Leukocyte Esterase LARGE (NEG) Urine RBC 81 /hpf (0-3) Urine WBC /hpf (0-5) Urine WBC Clumps MANY (NONE) Urine Transitional Epithelial 3 /hpf (NONE) Cells Urine Bacteria MANY /hpf (NONE) Urine Granular Casts /lpf (NONE) Urine Yeast with Hyphae MANY (NONE) Urine Yeast (Budding) MANY (NONE) Microscopic Urinalysis Comment CATH-CULTURE IND Urine Eosinophils RARE /HPF (NONE SEEN) Random Vancomycin Level 20.0 COMMENT Protein Corrected Calcium 8.6 MG/DL (8.5-10.1) Total Protein 4.8 GM/DL (6.4-8.2) Albumin 1.8 GM/DL (3.4-5.0) Result Diagram: 11/26/16 0505 11/26/16 0505 Microbiology Microbiology Date/Time Procedure Status Source Growth 11/24/16 09:10 Urine Culture - Final Complete Urine Catheterized Urine [facility] Last Impressions Chest X-Ray 11/25/16 0000 Signed Impressions: Service Date/Time: Friday, November 25, 2016 14:15 - CONCLUSION: 1. Central in good position. No evidence of pneumothorax. 2. Increasing partially consolidative infiltrates, right greater than left. Juan F Sharma MD Catheter Placement X-Ray 11/25/16 0000 Signed Impressions: Service Date/Time: Friday, November 25, 2016 00:00 - CONCLUSION: Uncomplicated line placement as above. Postprocedural chest radiograph will be obtained to confirm position. Chad Nelson MD Abdomen Ultrasound 11/21/16 0000 Signed Impressions: Service Date/Time: Monday, November 21, 2016 16:04 - CONCLUSION: 1. Dilated common bile duct measuring 11 mm. Correlation with alkaline phosphatase and bilirubin level is suggested to rule out biliary obstruction. 2. Thick-walled stone-containing gallbladder with minimal pericholecystic fluid. If there is clinical concern for acute cholecystitis a hepatobiliary scan may be helpful to confirm cystic duct obstruction. 3. Mild hepatomegaly. 4. Small right pleural effusion. 5. Trace ascites. 6. Poor visualization of the pancreas, abdominal aorta and inferior vena cava secondary to shadowing bowel gas. Joey Rosenthal MD Pelvis X-Ray 11/19/16 0000 Signed Impressions: Service Date/Time: Saturday, November 19, 2016 18:23 - CONCLUSION: 1. Moderate degenerative changes involving the hip joints bilaterally. 2. Degenerative changes involving the lower lumbar spine. 3. No acute fracture or dislocation. Joey Rosenthal MD Head CT 11/19/16 0000 Signed Impressions: Service Date/Time: Saturday, November 19, 2016 17:54 - CONCLUSION: No acute disease. Joey Rosenthal MD Cervical Spine CT 11/19/16 0000 Signed Impressions: Service Date/Time: Saturday, November 19, 2016 17:54 - CONCLUSION: 1. Extensive motion artifact particularly at C3 and C4 levels which limits interpretation of these levels. 2. Grade I retrolisthesis of C3 in relation to C4 and C2 as well as C4 in relation to C5. 3. Diffuse cervical spondylosis at C5-C6, C6- C7 and to a lesser extent at C4-C5 and C3-C4. 4. No acute fracture or prevertebral soft-tissue swelling. 5. Mild spinal stenosis at C5-C6. 6. Mild bilateral foraminal narrowing at C5-C6 and C6-C7 and to a lesser extent at C4- C5 and C3-C4. 7. Reversal of the normal cervical lordosis. Joey Rosenthal MD Patient/Family Conference Present at Family Conference: Leti Quiroz Family Conference Time (mins): 50 Family Conference Location: Bedside Issues Discussed: * Palliative care role, purpose, approach * Additional medical, psychosocial, and spiritual history * Patients general health, functional status, and cognitive changes in the months leading up to the current hospitalization * Patient/family understanding of the current medical problems * Patient/family understanding of prognosis * Patients goals of care as best understood from advance directives and/or conversations and/or values * Current medical treatment options and benefits/burdens of those options * Likely scenarios comparing ongoing aggressive care with a transition to comfort measures only * Questions answered to the best of my ability * Palliative care contact information provided Assessment and Plan Disease Oriented Problem List: (1) DM (diabetes mellitus screen) (2) Sepsis Comment: resolved (3) Rhabdomyolysis (4) Acute on chronic kidney failure Comment: on dialysis (5) PRATIMA (acute kidney injury) (6) Chest pain Comment: reportedly taking many nitrates (7) Congestive heart failure (8) Atrial fibrillation (9) Dementia Comment: mild beginning stages. Able to still remember physicians name, why she is in hospital, her current situation. (10) CHF, chronic (11) Chronic obstructive lung disease Symptom Scale: (1) Dyspnea 0-10 Scale: 3 (2) Pain 0-10 Scale: 3 Comment: abdominal and left leg. Pertinent Non-Medical Issues Psychosocial: Spiritual: Legal: Ethical issues impacting care: Important Contacts Leti Quiroz (friend). [phone] Miles Dey (son) [phone]. Unsure if this is the son that has . Prognosis 76 year old with hx of cardiac disease (not card cath candidate currently) hx of arrhythmia, congestive heart failure. Pt came in with DKA, sepsis, elevated troponin, and renal failure. sugars are controlled, pt off heparin drip, sepsis resolved. Main challenge is renal failure- likely combination of rhambdo , ATN, and chronic renal insufficiency. Unsure if it is permanent. Would be appropriate for hospice if goals were in comfort measures only. Code Status: Full Code Plan ==Capacity- Pt has capacity to make medical decision. I believe her capacity has fluctuated in the hospitalization, but that has returned. She has capacity to make medical decisions on my examination. It also appears that family medicine documented similar findings. When ask if the víctor is usually green on a clear madhu day she state "false". When ask if grass on a well watered lawn is usually green, she states true. She is able to say she went to dialysis yesterday, and had the procedure because her kidneys "are bad." She is able to correctly say her name, place, year, and month. I introduced myself 1 hour prior to family meeting, and on my return, she is able to remember my name. She demonstrates ablility to have a basic understanding of her condition , and able to weigh risk and benefits. == Health Care surrogate- there is a health care surrogate/ Living will form completed in 2010. It list Kelvin Dey as health care surrogate. She state they are estranged. She became angry and said, if they ever contact him, I would be angry. She does not want him to become HCS. She completed new forms designating Leti Quiroz as HCS. ( This has been documented in family medicine notes) Pt has endorsed that under no circumstance should Kelvin Dey be contacted. == Goals of Care: aggressive. She maintains "I am not ready to ." When I ask what living means, she states "my freedom." She endorses she does not want to be on life support or machines for a prolong period of time. Reviewed the the risk of dialysis, and especially for her her cardiac condition. Reviewed she possibly could be on ventilator and multiple hospitalization. She remains hopeful dialysis is short term and her kidneys will recover. Living will was brought and reviewed with pt and Leti. I will follow up. == symptoms- some dyspnea today, but she states its better than yesterday . She endorse she has chronic left leg pain. No new med rec. == Full Code. == Palliative Care will continue to monitor as pt's condition continue to evolve. Thank you for the opportunity to participate in the care of Ms. Palomo. Attestation To help prompt me to consider important information that might be impacting today's encounter and assessment, information from prior notes written by myself or my colleagues may have been "brought forward" into today's note. My signature on this note, however, is an attestation that I personally performed the exam, history, and/or decision-making noted today, and, unless otherwise indicated, the interactions with patient, family, and staff as well as the review of records all occurred today. I also attest that the listed assessment and stated plan reflect my best clinical judgment today based on the combination of historical information, prior notes, and today's exam/ interactions. When time spent is documented, it refers only to time spent today by the signer, or if indicated, combined time spent today by collaborating physician/nurse practitioner. Joe Arreaga MD Nov 26, 2016 11:44
--- NOTE | 2016-11-26 14:10 | PD.CARD.PN ---
Subjective Subjective Remarks Patient received vascath and completed dialysis yesterday. Patient feels a little better today. Continues to feel weak, scared and angry. Denies chest pain or pressure. (Mallory Holley) Subjective Remarks Still looks quite ill but but overall slow improvementThe exam, history, and the medical decision-making described in the above note were completed with the assistance of the mid-level provider. I reviewed and agree with the findings presented. I attest that I had a [id number] encounter with the patient on the same day, and personally performed and documented my assessment and findings in the medical record. (Carter Ashley MD) Objective Vital Signs / I&O Vital Signs Date Time Temp Pulse Resp B/P Pulse Ox O2 Delivery O2 Flow Rate FiO2 11/26/16 11:57 99.8 90 12 120/60 84 11/26/16 08:00 96.9 91 28 125/85 88 11/26/16 04:00 98.6 85 18 144/73 95 11/26/16 00:43 93 Nasal Cannula 4.00 11/26/16 00:00 97.7 79 18 135/72 97 11/25/16 20:00 95.9 81 18 119/66 93 I/O 11/25/16 11/25/16 11/25/16 11/26/16 11/26/16 11/26/16 07:00 15:00 23:00 07:00 15:00 23:00 Intake Total 535 ml 551 ml 240 ml 0 ml Output Total 0 ml 4000 ml 0 ml Balance 535 ml 551 ml -3760 ml 0 ml Intake Oral 120 ml 240 ml 0 ml IV Total 535 ml 431 ml 0 ml 0 ml Output Urine Total 0 ml 0 ml 0 ml Hemodialysis 4000 ml # Bowel Movements 0 Physical Exam GENERAL: Elderly female, awake and oriented. SKIN: Warm and dry. ecchymosis both arms HEAD: Normocephalic. EYES: No scleral icterus. No injection or drainage. NECK: Supple, trachea midline. Right IJ vasc cath CARDIOVASCULAR: Regular rate and rhythm without murmurs, gallops, or rubs. RESPIRATORY: Breath sounds equal bilaterally. Bibasilar rales, nasal cannula GASTROINTESTINAL: Abdomen soft, non-tender, nondistended. MUSCULOSKELETAL: No cyanosis, or edema. BACK: Nontender without obvious deformity. Laboratory Laboratory Tests Test 11/26/16 05:05 White Blood Count 2.8 TH/MM3 Red Blood Count 3.25 MIL/MM3 Hemoglobin 8.7 GM/DL Hematocrit 26.2 % Mean Corpuscular Volume 80.6 FL Mean Corpuscular Hemoglobin 26.7 PG Mean Corpuscular Hemoglobin 33.1 % Concent Red Cell Distribution Width 15.1 % Platelet Count 102 TH/MM3 Mean Platelet Volume 8.3 FL Sodium Level 140 MEQ/L Potassium Level 4.2 MEQ/L Chloride Level 102 MEQ/L Carbon Dioxide Level 26.7 MEQ/L Anion Gap 11 MEQ/L Blood Urea Nitrogen 49 MG/DL Creatinine 4.74 MG/DL Estimat Glomerular Filtration 9 ML/MIN Rate Random Glucose 102 MG/DL Calcium Level 7.3 MG/DL Protein Corrected Calcium 8.6 MG/DL Phosphorus Level 3.7 MG/DL Magnesium Level 1.5 MG/DL Total Protein 4.8 GM/DL Albumin 1.8 GM/DL Imaging Last 72 hours Impressions Chest X-Ray 11/25/16 0000 Signed Impressions: Service Date/Time: Friday, November 25, 2016 14:15 - CONCLUSION: 1. Central in good position. No evidence of pneumothorax. 2. Increasing partially consolidative infiltrates, right greater than left. Juan F Sharma MD Chest X-Ray 11/25/16 0000 Signed Impressions: Service Date/Time: Friday, November 25, 2016 10:28 - CONCLUSION: Developing edema and effusions. Edmond Jha MD Catheter Placement X-Ray 11/25/16 0000 Signed Impressions: Service Date/Time: Friday, November 25, 2016 00:00 - CONCLUSION: Uncomplicated line placement as above. Postprocedural chest radiograph will be obtained to confirm position. Chad Nelson MD (Mallory Holley) Assessment and Plan Assessment and Plan ASSESSMENT Elevated troponin and T-wave flattening in an elderly female with known history of ASHD with last negative cardiac PET 2014. She denies recently chest pain. AMS/unconscious, found down. Work up reveals leukocytosis, lactic acidosis, DKA and rhabdomyolysis. Etiology of cause is not completely clear. ICD interrogation negative for acute arrhythmias Acute on chronic CKD due to above Atrial fibrillation with RVR since admission. Was on Eliquis prior to admission. Hx atrial flutter s/p ablation Hx SVT s/p ICD. HTN HLD Mild to moderate carotid stenosis PLAN Continue BB Continue tele Restart Eliquis when plts stable The patient is not a candidate for cardiac cath at this time due to renal function. Pending clinical course, will consider inpatient stress test to exclude new ischemia. Patient denies chest pain. Assessment and plan discussed with Dr Ashley (Mallory Holley) Mallory Holley Nov 26, 2016 14:10 Carter Ashley MD Nov 26, 2016 18:13
--- NOTE | 2016-11-26 17:05 | HHI.NPPN ---
Subjective History of Present Illness This patient is a 76-year-old female. Patient is a poor historian and history primarily obtained from the records. According to the records I reviewed the patient has a history of diabetes mellitus, hypertension as well as HIV. Infectious disease is currently in consultation as well as critical care. The patient was admitted to this institution on November 19, 2016 after being found "down" in her apartment. On presentation to the hospital she was noted to have a blood sugar of 957 with a creatinine of 2.68 and initially a sodium of 133 as well as a total CO2 on BMP of 10.6. Beta hydroxybutyrate was elevated. Patient has been treated for DKA and serum sodium level as expected has increased as a glucose level has dropped. Creatinine level is slightly improved today at 2.56. There is also evidence of rhabdomyolysis on presentation with significantly elevated CK level and a urinalysis positive for large amount of blood but minimal rbc. Of interest patient was taking Crestor as an outpatient. Interval History Patient was seen during dialysis. Complaining of some shortness of breath and wheezing. She does have a history of COPD and is on respiratory treatments. Review of Systems General Constitutional: Fatigue Respiratory Lungs: SOB Gastrointestinal GI Remarks Nausea, anorexia Objective Data Data 11/25/16 11/26/16 19:00 07:00 Intake Total 551 ml 240 ml Output Total 4000 ml 0 ml Balance -3449 ml 240 ml Intake Oral 120 ml 240 ml IV Total 431 ml 0 ml Output Urine Total 0 ml 0 ml Hemodialysis 4000 ml # Bowel Movements 0 Vital Signs Date Time Temp Pulse Resp B/P Pulse Ox O2 Delivery O2 Flow Rate FiO2 11/26/16 11:57 99.8 90 12 120/60 84 11/26/16 08:00 96.9 91 28 125/85 88 11/26/16 04:00 98.6 85 18 144/73 95 11/26/16 00:43 93 Nasal Cannula 4.00 11/26/16 00:00 97.7 79 18 135/72 97 11/25/16 20:00 95.9 81 18 119/66 93 -: 11/26/16 0505 11/26/16 0505 Medication Review Current Medications Sodium Chloride (NS 1000 ml Inj) 1,000 ml @ 2,000 mls/hr Q30M ONCE IV Last administered on 11/19/16t 17:16; Start 11/19/16 at 17:26; Stop 11/19/16 at 17:55 ; Status DC Sodium Chloride 2 ml 2 ml UNSCH PRN IVF FLUSH AFTER USING IV ACCESS Last administered on 11/19/16 18:58; Start 11/19/16 at 17:00 Vancomycin HCl 1000 mg/Sodium Chloride 250 ml @ 250 mls/hr ONCE ONCE IV Last administered on 11/19/16 20:03; Start 11/19/16 at 17:30; Stop 11/19/16 at 18:29 ; Status DC Aztreonam 2000 mg/ Sodium Chloride 100 ml @ 200 mls/hr ONCE STAT IV Last administered on 11/19/16 20:56; Start 11/19/16 at 17:20; Stop 11/19/16 at 17:49 ; Status DC Metronidazole (Flagyl 500 Mg Inj) 100 ml @ 100 mls/hr ONCE STAT IV Last administered on 11/19/16 17:44; Start 11/19/16 at 17:20; Stop 11/19/16 at 18:19 ; Status DC Acetaminophen 650 mg 650 mg ONCE ONCE RECTAL Last administered on 11/19/16 17 :44; Start 11/19/16 at 17:30; Stop 11/19/16 at 17:31; Status DC Sodium Chloride 1,000 ml @ 250 mls/hr Q4H IV Last administered on 11/20/16 06 :33; Start 11/19/16 at 18:33; Stop 11/21/16 at 10:31; Status DC Dextrose/Sodium Chloride (D5W-NS 1000 ml Inj) 1,000 ml @ 120 mls/hr Q8H20M IV Last administered on 11/20/16 04:33; Start 11/19/16 at 18:33; Stop 11/21/16 at 10:31; Status DC Insulin Human Regular 5 units 5 units BOLUS ONCE IV PUSH Last administered on 11/19/16 18:58; Start 11/19/16 at 18:45; Stop 11/19/16 at 18:46; Status DC Insulin Human Regular 100 units/ Sodium Chloride 100 ml @ 0 mls/hr TITRATE IV Last administered on 11/19/16 19:39; Start 11/19/16 at 18:45; Stop 11/20/16 at 08:33; Status DC Potassium Chloride 100 ml @ 100 mls/hr Q1H PRN IV SEE LABEL COMMENTS; Start at 18:45; Stop 11/21/16 at 10:31; Status DC Potassium Chloride 100 ml @ 50 mls/hr Q2H PRN IV SEE LABEL COMMENTS; Start at 18:45; Stop 11/21/16 at 10:31; Status DC Potassium Chloride 100 ml @ 100 mls/hr Q1H PRN IV SEE LABEL COMMENTS; Start at 18:45; Stop 11/21/16 at 10:31; Status DC Potassium Chloride 100 ml @ 100 mls/hr Q1H PRN IV SEE LABEL COMMENTS; Start at 18:45; Stop 11/21/16 at 10:31; Status DC Potassium Chloride 100 ml @ 50 mls/hr Q2H PRN IV SEE LABEL COMMENTS; Start at 18:45; Stop 11/21/16 at 10:31; Status DC Potassium Chloride 100 ml @ 50 mls/hr Q2H PRN IV SEE LABEL COMMENTS; Start at 18:45; Stop 11/21/16 at 10:31; Status DC Potassium Chloride 100 ml @ 50 mls/hr Q2H PRN IV SEE LABEL COMMENTS Last administered on 11/20/16t 00:18; Start 11/19/16 at 18:45; Stop 11/21/16 at 10:31 ; Status DC Potassium Chloride (KCl 20 Meq Premix Inj) 100 ml @ 50 mls/hr Q2H PRN IV SEE LABEL COMMENTS; Start 11/19/16 at 18:45; Stop 11/20/16 at 13:53; Status DC Sodium Bicarbonate (Sodium Bicarbonate 8.4% Inj) 100 meq UNSCH PRN IV SEE LABEL COMMENTS; Start 11/19/16 at 18:45 Sodium Bicarbonate 50 meq 50 meq UNSCH PRN IV SEE LABEL COMMENTS; Start at 18:45 Sodium Phosphate 15 mmol/Sodium Chloride 105 ml @ 25 mls/hr UNSCH PRN IV SEE LABEL COMMENTS; Start 11/19/16 at 18:45; Stop 11/21/16 at 10:31; Status DC Pharmacy Profile Note (Vancomycin Consult Pharmacy) 0 ml @ 0 mls/hr UNSCH OTHER ; Start 11/19/16 at 22:30; Stop 11/25/16 at 13:53; Status DC Miscellaneous Medication (ASP Crit: Doc allergy to Penicillin/ Cephalosp) 1 UNSCH X1 PRN .XX PHARMACY DOCUMENTATION; Start 11/19/16 at 22:45; Stop at 22:44; Status DC Miscellaneous Medication 1 1 UNSCH X1 PRN XX PHARMACY DOCUMENTATION; Start at 22:45; Stop 11/20/16 at 22:44; Status DC Meropenem/Sodium Chloride (Merrem Inj/NS Inj) 100 ml @ 200 mls/hr Q12H IV Last administered on 11/20/16 12:23; Start 11/20/16 at 00:00; Stop 11/20/16 at 15:05; Status DC Aspirin (Aspirin Supp) 300 mg ONCE ONCE RECTAL Last administered on 11/20/16 08:57; Start 11/20/16 at 01:45; Stop 11/20/16 at 01:48; Status DC Pantoprazole Sodium (Protonix Inj) 40 mg DAILY IV Last administered on 09:49; Start 11/20/16 at 09:00 Ondansetron HCl (Zofran Inj) 4 mg Q6H PRN IV NAUSEA OR VOMITING Last administered on 11/21/16 08:57; Start 11/20/16 at 04:15 Albuterol/ Ipratropium (Duoneb Neb) 1 ampule Q6HR NEB INH Last administered on 11/24/16 09:55; Start 11/20/16 at 10:00; Stop 11/24/16 at 10:00; Status DC Albuterol Sulfate (Albuterol Neb) 2.5 mg Q2HR NEB PRN INH SOB/WHEEZING Last administered on 11/26/16 07:42; Start 11/20/16 at 04:15 Miscellaneous Information 1 Q361D XX Last administered on 11/20/16 04:15; Start 11/20/16 at 04:15 Chlorhexidine Gluconate (Chlorhexidine 2% Cloth) Taper DAILY@04 TOP Last administered on 11/23/16 04:00; Start 11/21/16 at 04:00; Stop 11/17/17 at 03:59 Chlorhexidine Gluconate 3 pack 3 pack UNSCH PRN TOP HYGIENIC CARE; Start at 04:15 Potassium Phosphate/Sodium Chloride (Potassium Phosphate Inj/NS 250 ml Inj) 260 ml @ 43.333 mls/ hr ONCE ONCE IV Last administered on 11/20/16 05:48; Start 11/20/16 at 04:30; Stop 11/21/16 at 10:31; Status DC Nystatin (Mycostatin Cream) 1 applic Q12HR TOPICAL Last administered on 09:00; Start 11/20/16 at 09:00 Dextrose 50 ml 50 ml STK-MED ONCE .ROUTE ; Start 11/20/16 at 07:01; Stop at 07:02; Status DC Heparin Sodium/ Dextrose (Heparin-D5W Inj) 250 ml @ 0 mls/hr TITRATE IV Last administered on 11/20/16 08:47; Start 11/20/16 at 07:00; Stop 11/21/16 at 14:14 ; Status DC Miscellaneous Medication ([facility] Information) Please discontinue previ... ONCE ONCE .XX ; Start 11/20/16 at 08:45; Stop 11/20/16 at 08:46; Status DC Dextrose (D50w (Vial) Inj) 25 ml UNSCH PRN IV PUSH HYPOGLYCEMIA - SEE COMMENTS ; Start 11/20/16 at 08:45; Stop 11/20/16 at 13:53; Status DC Glucagon (Glucagon Inj) 1 mg UNSCH PRN OTHER HYPOGLYCEMIA-SEE COMMENTS; Start 11/20/16 at 08:45; Stop 11/20/16 at 13:53; Status DC Insulin Aspart (NovoLOG SUPPLEMENTAL SCALE) 1 Q4H SQ Last administered on 12:00; Start 11/20/16 at 08:00; Stop 11/20/16 at 13:53; Status DC Insulin Detemir (Levemir Inj) 10 units Q12HR SQ Last administered on 11/20/16 20:16; Start 11/20/16 at 13:30; Stop 11/21/16 at 10:31; Status DC Clopidogrel Bisulfate (Plavix) 75 mg DAILY PO Last administered on 11/26/16 09: 47; Start 11/21/16 at 09:00 Aspirin 81 mg 81 mg DAILY CHEW Last administered on 11/25/16 08:32; Start 11/21 at 09:00 Sodium Chloride 1,000 ml @ 125 mls/hr Q8H IV Last administered on 11/20/16 20 :45; Start 11/20/16 at 15:00; Stop 11/21/16 at 10:31; Status DC Meropenem/Sodium Chloride (Merrem Inj/NS Inj) 100 ml @ 200 mls/hr Q12H IV Last administered on 11/23/16 12:40; Start 11/21/16 at 00:00; Stop 11/23/16 at 12 :43; Status DC Dextrose (D50w (Vial) Inj) 25 ml UNSCH PRN IV PUSH HYPOGLYCEMIA - SEE COMMENTS ; Start 11/20/16 at 17:00 Glucagon (Glucagon Inj) 1 mg UNSCH PRN OTHER HYPOGLYCEMIA-SEE COMMENTS; Start 11/20/16 at 17:00 Insulin Aspart 1 1 Q4HR SQ Last administered on 11/26/16 15:52; Start 11/20/16 at 16:00 Vancomycin HCl 1000 mg/Sodium Chloride 250 ml @ 250 mls/hr ONCE ONCE IV Last administered on 11/21/16 08:58; Start 11/21/16 at 09:00; Stop 11/21/16 at 09:59 ; Status DC Sodium Bicarbonate/ Sodium Chloride (Sodium Bicarbonate 8.4% Inj/08/25 NS 1000 ml Inj) 1,075 ml @ 75 mls/hr [id number] IV Last administered on 11/21/16 23:41; Start 11/21/16 at 11:30; Stop 11/22/16 at 12:25; Status DC Cholecalciferol (Vitamin D3) 2,000 units DAILY PO Last administered on 09:47; Start 11/21/16 at 14:15 Heparin Sodium (Porcine) (Heparin Inj) 5,000 units Q12HR SQ Last administered on 11/26/16 09:47; Start 11/21/16 at 21:00 Metoprolol Tartrate (Lopressor) 25 mg Q12HR PO Last administered on 11/26/16 09 :48; Start 11/21/16 at 14:00 Bumetanide 1 mg 1 mg ONCE ONCE IV PUSH Last administered on 11/22/16 12:03; Start 11/22/16 at 11:45; Stop 11/22/16 at 11:46; Status DC Sodium Bicarbonate/ Dextrose (Sodium Bicarbonate 8.4% Inj/D5W 1000 ml Inj) 1, 150 ml @ 100 mls/hr [id number] IV Last administered on 11/23/16 09:03; Start 11/22 at 14:00; Stop 11/23/16 at 10:17; Status DC Insulin Detemir 10 units 10 units Q12HR SQ Last administered on 11/23/16 21:38 ; Start 11/23/16 at 09:45; Stop 11/24/16 at 07:15; Status DC Sodium Chloride (NS 1000 ml Inj) 1,000 ml @ 100 mls/hr Q10H IV Last administered on 11/23/16 11:00; Start 11/23/16 at 11:00; Stop 11/23/16 at 11:05; Status DC Mirtazapine (Remeron) 15 mg HS PO Last administered on 11/25/16 22:23; Start at 21:00 Donepezil HCl 5 mg 5 mg HS PO Last administered on 11/25/16 22:23; Start at 21:00 Vancomycin HCl/ Sodium Chloride (Vancomycin Inj/ NS 250 ml Inj) 250 ml @ 250 mls/hr ONCE ONCE IV Last administered on 11/23/16 12:40; Start 11/23/16 at 12: 00; Stop 11/23/16 at 12:59; Status DC Senna/Docusate Sodium 2 tab 2 tab ONCE ONCE PO Last administered on 11/23/16 10:30; Start 11/23/16 at 10:30; Stop 11/23/16 at 10:31; Status DC Sodium Bicarbonate 150 meq/Sodium Chloride 1,150 ml @ 70 mls/hr [id number] IV Last administered on 11/24/16 20:52; Start 11/23/16 at 12:00; Stop 11/25/16 at 12: 00; Status DC Meropenem/Sodium Chloride (Merrem Inj/NS Inj) 100 ml @ 200 mls/hr Q24H IV Last administered on 11/24/16 00:58; Start 11/24/16 at 00:00; Stop 11/24/16 at 08: 18; Status DC Insulin Detemir (Levemir Inj) 5 units Q12HR SQ Last administered on 11/26/16 09 :46; Start 11/24/16 at 09:00 Mupirocin (Bactroban 2% Oint) 1 applic Q12HR TOPICAL Last administered on 09:00; Start 11/24/16 at 10:00 Senna/Docusate Sodium (Marlene-Colace) 2 tab ONCE ONCE PO Last administered on 11:49; Start 11/24/16 at 10:15; Stop 11/24/16 at 10:16; Status DC Acetaminophen (Tylenol) 500 mg Q4H PRN PO PAIN SCALE 3 TO 6 Last administered on 11/24/16 15:17; Start 11/24/16 at 13:30 Oxycodone HCl (Roxicodone) 5 mg Q6H PRN PO PAIN SCALE 7 TO 10; Start 11/24/16 at 13:30 Furosemide 20 mg 20 mg ONCE ONCE IV PUSH Last administered on 11/24/16 17:20; Start 11/24/16 at 16:00; Stop 11/24/16 at 16:01; Status DC Sodium Chloride (NS 1000 ml Inj) 1,000 ml @ 0 mls/hr Q0M PRN IV For Prime & Rinse Back; Start 11/25/16 at 11:55 Heparin Sodium (Porcine) 8000 units 8,000 units UNSCH PRN IVF WITH DIALYSIS Last administered on 11/25/16 16:36; Start 11/25/16 at 12:00 Sodium Chloride 1,000 ml @ 200 mls/hr Q5H PRN IV WITH DIALYSIS; Start 11/25/16 at 11:55 Sodium Chloride (NS 1000 ml Inj) 1,000 ml @ 0 mls/hr Q0M PRN IV WITH DIALYSIS; Start 11/25/16 at 11:55 Mannitol (Mannitol Inj) 12.5 gm UNSCH PRN IV WITH DIALYSIS; Start 11/25/16 at 12 :00 Albumin Human (Albumin 25% Inj) 25 gm UNSCH PRN IV WITH DIALYSIS; Start at 12:00 Sodium Chloride (NS Flush) 5 ml UNSCH PRN IV FLUSH WITH DIALYSIS; Start at 12:00 Heparin Sodium (Porcine) (Heparin Inj) UNSCH PRN .XX WITH DIALYSIS; Start 11/25 at 12:00 Gentamicin Sulfate (Gentamicin (Dialysis) Inj) 20 mg UNSCH PRN IV WITH DIALYSIS Last administered on 11/25/16 16:35; Start 11/25/16 at 12:00 Ondansetron HCl (Zofran Inj) 4 mg UNSCH PRN IV WITH DIALYSIS; Start 11/25/16 at 12:00 Acetaminophen (Tylenol) 650 mg UNSCH PRN PO for headach, pain, temp > 101F; Start 11/25/16 at 12:00 Diphenhydramine HCl (Benadryl) 25 mg UNSCH PRN PO for hives/itching/anaphylaxis ; Start 11/25/16 at 12:00 Nitroglycerin (Nitrostat Sl) 0.4 mg UNSCH PRN SL CHEST PAIN; Start 11/25/16 at 12:00 Clonidine (Catapres) 0.1 mg UNSCH PRN PO for BP > 180/100 X 2 readings; Start 11/25/16 at 12:00 Gelatin (Gelfoam 12 Mm/7 Mm Top) 1 foam UNSCH PRN TOP SEE LABEL COMMENTS; Start 11/25/16 at 12:00 Heparin Sodium (Porcine) (*HEPARIN INJ Periprocedural ONLY) 10,000 units STK- MED ONCE .ROUTE Last administered on 11/25/16 14:02; Start 11/25/16 at 13:48; Stop 11/25/16 at 13:49; Status DC Fluconazole (Diflucan) 100 mg DAILY PO Last administered on 11/26/16 09:48; Start 11/25/16 at 15:00; Stop 12/02/16 at 14:59 Furosemide 20 mg 20 mg ONCE ONCE IV PUSH Last administered on 11/25/16 18:21; Start 11/25/16 at 15:00; Stop 11/25/16 at 15:01; Status DC Calcium Gluconate/ Dextrose (Calcium Gluconate Inj/D5W 100 ml Inj) 110 ml @ 110 mls/hr ONCE ONCE IV ; Start 11/26/16 at 06:30; Stop 11/26/16 at 06:30; Status DC Calcium Carbonate 1000 mg 1,000 mg ONCE ONCE CHEW Last administered on 06:38; Start 11/26/16 at 06:30; Stop 11/26/16 at 06:32; Status DC Calcium Gluconate/ Sodium Chloride (Calcium Gluconate Inj/NS Inj) 110 ml @ 110 mls/hr ONCE ONCE IV Last administered on 11/26/16 07:02; Start 11/26/16 at 07: 00; Stop 11/26/16 at 07:59; Status DC Ergocalciferol (Drisdol) 50,000 units Q7D PO Last administered on 11/26/16 11: 00; Start 11/26/16 at 07:00 Albuterol/ Ipratropium (Duoneb Neb) 1 ampule Q4HR WHILE AWAKE NEB NEB Last administered on 11/26/16 11:32; Start 11/26/16 at 12:00 Furosemide (Lasix Inj) 40 mg ONCE ONCE IV PUSH Last administered on 11/26/16 11:01; Start 11/26/16 at 09:00; Stop 11/26/16 at 09:18; Status DC Physical Exam General Appearance: No Acute Distress, Comfortable, Pale, Malnourished Pulmonary Resp Exam: Breath Sounds Equal, No Distress, Crackles (coarse crackles in the bases bilaterally) Cardiology CV Exam: Regular, Normal Sinus Rhythm Gastrointestinal/Abdomen GI Exam: Soft, Non-Tender Integumentary Skin Exam: Clear, Warm Extremeties Extremities Exam: Trace Edema Neurologic Neuro Exam: Alert, Awake, Speech Clear, Moving All Extremities Assessment/Plan Discussed Condition With: Patient Problem List: (1) PRATIMA (acute kidney injury) Plan: Patient was seen during her second dialysis treatment today. Fluid retention has improved but she does have wheezing which appears to be related to her intrinsic COPD. Will defer management to primary care physician. Continue to monitor the patient for improvement in renal function in the setting of acute kidney disease. If no significant improvement in renal function in the next few days will consider switching to a PermCath and arrange outpatient dialysis. There is still however potential for improvement in renal function as discussed with her. Medications should be adjusted for the patient's estimated GFR if clinically indicated. Avoid agents with significant potential for nephrotoxicity possible including NSAIDs for analgesia, iodine contrast agents. Gadolinium is contraindicated if the GFR is below 30. (2) Rhabdomyolysis Plan: Most likely secondary to compression injury while patient was on the floor. Patient was on a statin drug i.e. Crestor so uncertain to what degree this may have played a role also. (3) Sepsis Plan: Infectious disease following. (4) CKD (chronic kidney disease) stage 3, GFR 30-59 ml/min Plan: Secondary to nephrosclerosis of hypertension and aging. (5) Metabolic acidosis Plan: Resolved with dialysis. (6) Vitamin D deficiency Plan: Vitamin D supplementation as ordered. Problem Qualifiers (1) Rhabdomyolysis: Qualified Code: M62.82 - Non-traumatic rhabdomyolysis Mario Valdes MD Nov 26, 2016 17:04
[2016-11-26] MEDS: ACETAMINOPHEN 325 MG TAB PO PRN (17:08)
[2016-11-26] MEDS: EPOETIN ALFA 10,000 UNITS/ML VIAL SQ SCH (17:54)
[2016-11-26] MEDS: MIRTAZAPINE 15 MG TAB PO SCH (23:05)
[2016-11-26] MEDS: DONEPEZIL HCL 5 MG TAB PO SCH (23:06)
[2016-11-27] VITALS (9 sets, daily range): BP systolic 136–172; BP diastolic 60–87; PULSE 82–99; RESP 17–20; TEMP 96.4–99; O2SAT 92–95
[2016-11-27] MEDS: MEDIUM DOSE INSULIN NOVOLOG SUPPLEMENTAL SCALE SQ SCH ×6 (00:59→20:00)
[2016-11-27] MEDS: CHLORHEXIDINE GLUCONATE 2 % 1 PACK (2 CLOTHS) TOP SCH (04:00)
[2016-11-27 04:37] LABS: BASOPHIL % 0.5 % (0.0-2.0); EOSINOPHIL # 0.1 TH/MM3 (0-0.4); EOSINOPHIL % 1.6 % (0.0-4.0); HEMATOCRIT 25.2 % (35.0-46.0); HEMO FLAGS DIFF FINAL; LYMPH % 12.5 % (9.0-44.0); LYMPHOCYTE # 0.5 TH/MM3 (1.0-4.8); MEAN CELL VOLUME 81.2 FL (80.0-100.0); MEAN CORPUSCULAR HEMOGLOBIN 27.2 PG (27.0-34.0); MEAN CORPUSCULAR HGB CONC 33.6 % (32.0-36.0); MONO % 10.2 % (0.0-8.0); NEUT % 75.2 % (16.0-70.0); PLATELET COUNT 129 TH/MM3 (150-450); RED CELL DISTRIBUTION WIDTH 14.8 % (11.6-17.2)
[2016-11-27 05:13] LABS: ANION GAP 6 MEQ/L (5-15); BICARBONATE 30.1 MEQ/L (21.0-32.0); BLOOD UREA NITROGEN 30 MG/DL (7-18); CHLORIDE 103 MEQ/L (98-107); FERRITIN 160 NG/ML (8-252); GLOMERULAR FILTRATION RATE 13 ML/MIN (>89); POTASSIUM 4.3 MEQ/L (3.5-5.1); SODIUM (NA) 139 MEQ/L (136-145); TRANSFERRIN IRON PROFILE 121 MG/DL (200-360)
[2016-11-27] MEDS: RESP: ALBUTEROL 2.5 MG/IPRATROPIUM 0.5 MG NEB (SCH) NEB ×4 (07:53→20:00)
--- NOTE | 2016-11-27 09:42 | HHI.IDPN ---
Subjective Subjective Remarks ID COVERAGE Patient was brought to the emergency department from a [facility]dc facility with altered mental status. Notes reviewed Temps ok Has had HD x 2 No HD today Feels a little better Still gets SOB easily but better Mild cough No CP Poor appetite - eating takes a lot of effort Antibiotics Diflucan Lines Vascath Past Medical History Reviewed Allergies: Coded Allergies: Cortisone (Verified Allergy, Severe, Rash, 11/12/16) Cortisone cream - rash on area that is apply Penicillin (Verified Allergy, Severe, Anaphylaxis, 11/12/16) Sulfa (Verified Allergy, Severe, Hives, 11/12/16) Hives on joints Cephalosporins (Verified Allergy, Unknown, 11/12/16) Codeine (Verified Allergy, Unknown, 11/12/16) Corticosteroids (Verified Allergy, Unknown, 11/12/16) Tizanidine (Verified Adverse Reaction, Severe, Dizziness, 11/12/16) Tetracyclines (Verified Adverse Reaction, Mild, 11/12/16) vomiting *MDRO Multi-Drug Resistant Organism (Verified Adverse Reaction, Unknown, ) MRSA (leg wound) 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 Vital Signs Date Time Temp Pulse Resp B/P Pulse Ox O2 Delivery O2 Flow Rate FiO2 11/27/16 08:00 96.9 91 17 163/77 11/27/16 07:55 95 Nasal Cannula 2.00 11/27/16 04:00 99.0 83 20 159/65 92 11/27/16 00:00 97.6 90 18 136/60 95 11/26/16 20:29 97.2 96 20 130/56 91 11/26/16 20:24 95 Nasal Cannula 2.00 11/26/16 11:57 99.8 90 12 120/60 84 11/26/16 11/26/16 11/27/16 15:00 23:00 07:00 Intake Total 380 ml 360 ml 0 ml Balance 380 ml 360 ml 0 ml Intake Oral 380 ml 360 ml IV Total 0 ml # Voids 1 1 # Bowel Movements 1 1 . Laboratory Tests Test 11/26/16 11/27/16 05:05 04:19 White Blood Count 2.8 TH/MM3 4.0 TH/MM3 Red Blood Count 3.25 MIL/MM3 3.10 MIL/MM3 Hemoglobin 8.7 GM/DL 8.4 GM/DL Hematocrit 26.2 % 25.2 % Mean Corpuscular Volume 80.6 FL 81.2 FL Mean Corpuscular Hemoglobin 26.7 PG 27.2 PG Mean Corpuscular Hemoglobin 33.1 % 33.6 % Concent Red Cell Distribution Width 15.1 % 14.8 % Platelet Count 102 TH/MM3 129 TH/MM3 Mean Platelet Volume 8.3 FL 8.0 FL Neutrophils (%) (Auto) 75.2 % Lymphocytes (%) (Auto) 12.5 % Monocytes (%) (Auto) 10.2 % Eosinophils (%) (Auto) 1.6 % Basophils (%) (Auto) 0.5 % Neutrophils # (Auto) 3.0 TH/MM3 Lymphocytes # (Auto) 0.5 TH/MM3 Monocytes # (Auto) 0.4 TH/MM3 Eosinophils # (Auto) 0.1 TH/MM3 Basophils # (Auto) 0.0 TH/MM3 CBC Comment DIFF FINAL Differential Comment Laboratory Tests Test 11/26/16 11/27/16 05:05 04:19 Sodium Level 140 MEQ/L 139 MEQ/L Potassium Level 4.2 MEQ/L 4.3 MEQ/L Chloride Level 102 MEQ/L 103 MEQ/L Carbon Dioxide Level 26.7 MEQ/L 30.1 MEQ/L Anion Gap 11 MEQ/L 6 MEQ/L Blood Urea Nitrogen 49 MG/DL 30 MG/DL Creatinine 4.74 MG/DL 3.53 MG/DL Estimat Glomerular Filtration 9 ML/MIN 13 ML/MIN Rate Random Glucose 102 MG/DL 46 MG/DL Calcium Level 7.3 MG/DL 8.0 MG/DL Protein Corrected Calcium 8.6 MG/DL Phosphorus Level 3.7 MG/DL Magnesium Level 1.5 MG/DL Total Protein 4.8 GM/DL Albumin 1.8 GM/DL Iron Level 58 MCG/DL Total Iron Binding Capacity 169 MCG/DL Percent Iron Saturation 34.2 % Ferritin 160 NG/ML Imaging Last 72 hours Impressions Chest X-Ray 11/25/16 0000 Signed Impressions: Service Date/Time: Friday, November 25, 2016 14:15 - CONCLUSION: 1. Central in good position. No evidence of pneumothorax. 2. Increasing partially consolidative infiltrates, right greater than left. Juan F Sharma MD Chest X-Ray 11/25/16 0000 Signed Impressions: Service Date/Time: Friday, November 25, 2016 10:28 - CONCLUSION: Developing edema and effusions. Edmond Jha MD Catheter Placement X-Ray 11/25/16 0000 Signed Impressions: Service Date/Time: Friday, November 25, 2016 00:00 - CONCLUSION: Uncomplicated line placement as above. Postprocedural chest radiograph will be obtained to confirm position. Chad Nelson MD Chest X-Ray 11/25/16 0000 Signed Impressions: Service Date/Time: Friday, November 25, 2016 10:28 - CONCLUSION: Developing edema and effusions. Edmond Jha MD Abdomen Ultrasound 11/21/16 0000 Signed Impressions: Service Date/Time: Monday, November 21, 2016 16:04 - CONCLUSION: 1. Dilated common bile duct measuring 11 mm. Correlation with alkaline phosphatase and bilirubin level is suggested to rule out biliary obstruction. 2. Thick-walled stone-containing gallbladder with minimal pericholecystic fluid. If there is clinical concern for acute cholecystitis a hepatobiliary scan may be helpful to confirm cystic duct obstruction. 3. Mild hepatomegaly. 4. Small right pleural effusion. 5. Trace ascites. 6. Poor visualization of the pancreas, abdominal aorta and inferior vena cava secondary to shadowing bowel gas. Joey Rosenthal MD Pelvis X-Ray 11/19/16 0000 Signed Impressions: Service Date/Time: Saturday, November 19, 2016 18:23 - CONCLUSION: 1. Moderate degenerative changes involving the hip joints bilaterally. 2. Degenerative changes involving the lower lumbar spine. 3. No acute fracture or dislocation. Joey Rosenthal MD Head CT 11/19/16 0000 Signed Impressions: Service Date/Time: Saturday, November 19, 2016 17:54 - CONCLUSION: No acute disease. Joey Rosenthal MD Cervical Spine CT 11/19/16 0000 Signed Impressions: Service Date/Time: Saturday, November 19, 2016 17:54 - CONCLUSION: 1. Extensive motion artifact particularly at C3 and C4 levels which limits interpretation of these levels. 2. Grade I retrolisthesis of C3 in relation to C4 and C2 as well as C4 in relation to C5. 3. Diffuse cervical spondylosis at C5-C6, C6- C7 and to a lesser extent at C4-C5 and C3-C4. 4. No acute fracture or prevertebral soft-tissue swelling. 5. Mild spinal stenosis at C5-C6. 6. Mild bilateral foraminal narrowing at C5-C6 and C6-C7 and to a lesser extent at C4- C5 and C3-C4. 7. Reversal of the normal cervical lordosis. Joey Rosenthal MD Physical Exam GENERAL: Alert and awake. Gets SOB when talking HEENT: [place] conjunctiva. No icterus. Oropharynx: mucosa is moist, no thrush NECK: Supple. No adenopathy. No tenderness on palpation. LUNGS: Clear decreased breath sounds. HEART: Decreased BS at bases ABDOMEN: Bowel sounds present, soft, no tenderness appreciated. EXTREMITIES: No clubbing or cyanosis or edema. SKIN: No rash. NEUROLOGIC: No gross focal findings. PSYCHIATRIC: Calm and cooperative. LINE: No evidence of infection Assessment & Plan Remarks IMPRESSION Sepsis in patient who presented with fever, tachycardia, leukocytosis, a lactic acidosis and altered mental status. Also the patient presented with acute kidney injury and DKA. Altered mental status. Improved. Appears back to baseline. Acute renal failure Pulmonary edema due to fluid overload Multiple antibiotic allergies. Leukocytosis.resolved RECOMMENDATIONS Continue Diflucan, end date placed in [facility] per renal Clinically stable from ID standpoint I will be available prn Please reconsult if with any new ID issue or question Janki Lieberman MD Nov 27, 2016 09:42
[2016-11-27] MEDS: CHOLECALCIFEROL (VIT D3) 1000 UNIT TAB PO SCH (09:52)
[2016-11-27] MEDS: ASPIRIN 81 MG CHEW TAB CHEW SCH (09:52)
[2016-11-27] MEDS: METOPROLOL TARTRATE 25 MG TAB PO SCH ×2 (09:53→21:21)
[2016-11-27] MEDS: FLUCONAZOLE 100 MG TAB PO SCH (09:53)
[2016-11-27] MEDS: CLOPIDOGREL 75 MG TAB PO SCH (09:53)
[2016-11-27] MEDS: MUPIROCIN 2% OINT 22 GM TUBE TOPICAL SCH ×2 (09:53→21:00)
[2016-11-27] MEDS: PANTOPRAZOLE SODIUM 40 MG VIAL IV SCH (09:53)
[2016-11-27] MEDS: HEPARIN SODIUM - SQ 10,000 UNITS/ML VIAL SQ SCH (09:53)
[2016-11-27] MEDS: NYSTATIN 100,000 UNIT/GM CREAM 15 GM TOPICAL SCH ×2 (09:54→21:00)
[2016-11-27] MEDS: INSULIN DETEMIR 100 UNITS/ML VIAL SQ SCH ×2 (09:57→21:00)
--- NOTE | 2016-11-27 10:54 | HHI.FPPN ---
Subjective Remarks Patient resting in bed. She reports feeling better than yesterday, but does continue to have wheezing and some difficulty catching her breath. She notices the most while trying to eat. She received dialysis yesterday and reports that she did well with it. She has no chest pain. No abdominal pain. No calf tenderness. She has a good appetite. No lightheadedness. (Chato Culp MD R2 ) Objective Vitals Vital Signs Date Time Temp Pulse Resp B/P Pulse Ox O2 Delivery O2 Flow Rate FiO2 11/27/16 08:00 96.9 91 17 163/77 11/27/16 07:55 95 Nasal Cannula 2.00 11/27/16 04:00 99.0 83 20 159/65 92 11/27/16 00:00 97.6 90 18 136/60 95 11/26/16 20:29 97.2 96 20 130/56 91 11/26/16 20:24 95 Nasal Cannula 2.00 11/26/16 11:57 99.8 90 12 120/60 84 I/O 11/26/16 11/26/16 11/26/16 11/27/16 11/27/16 11/27/16 07:00 15:00 23:00 07:00 15:00 23:00 Intake Total 0 ml 380 ml 360 ml 0 ml Output Total 0 ml Balance 0 ml 380 ml 360 ml 0 ml Intake Oral 0 ml 380 ml 360 ml IV Total 0 ml 0 ml Output Urine Total 0 ml # Voids 1 1 # Bowel Movements 1 1 (Chato Culp MD R2) Result Diagram: 11/27/16 0419 11/27/16 0419 Imaging Last 72 hours Impressions Chest X-Ray 11/25/16 0000 Signed Impressions: Service Date/Time: Friday, November 25, 2016 14:15 - CONCLUSION: 1. Central in good position. No evidence of pneumothorax. 2. Increasing partially consolidative infiltrates, right greater than left. Juan F Sharma MD Chest X-Ray 11/25/16 0000 Signed Impressions: Service Date/Time: Friday, November 25, 2016 10:28 - CONCLUSION: Developing edema and effusions. Edmond Jha MD Catheter Placement X-Ray 11/25/16 0000 Signed Impressions: Service Date/Time: Friday, November 25, 2016 00:00 - CONCLUSION: Uncomplicated line placement as above. Postprocedural chest radiograph will be obtained to confirm position. Chad Nelson MD Objective Remarks GENERAL: Sitting up in bed, appears more uncomfortable than yesterday, some accessory muscle use for breathing, no acute distress, attempting to eat breakfast SKIN: Mild pallor. No rashes. Large ecchymosis covering left forearm and distal 1/3 of left upper arm on posteromedial side. Ecchymosis of right mid-arm, left hip. These are resolving from prior exams. Cool and dry. Stage 2 sacral decubitus ulcer right buttock near midline. Stage 1 pressure ulcer right upper back, b/l heels. CARDIOVASCULAR: NRRR. Normal S1/S2. No MRG RESPIRATORY: Significant wheezing throughout lungs, decreased sounds at the bases, dullness to percussion in the bases, some use of accessory muscles to breath, no acute distress GASTROINTESTINAL: Abdomen soft, non-distended, and non-distended. MUSCULOSKELETAL: Small superficial abrasion on dorsal aspect of middle finger. Slightly erythematous but evidence of cellulitis or abscess. FROM. NEUROLOGICAL: Awake and alert. Moves all extremities without difficulty. Normal speech. Baseline cognitive status, which includes mild confusion but overall oriented to place and situation. (Chato Culp MD R2) A/P Assessment and Plan 76 year old female with PMH of DM, AFib, COPD, CKD initially presented with DKA , rhabdomyolysis, and sepsis, now with resolved DKA, resolving rhabdomyolysis, but now with developing PRATIMA possibly due to ATN and requiring hemodialysis. Kidney function improving on dialysis, but now with significant wheezing, possibly mixed etiology of COPD and CHF/PRATIMA fluid overload. Discharge Planning Will need rehabilitation/SNF placement on discharge. Palliative care is involved. She wants aggressive care for the time being. s/d/w Dr. Kimbrough d/w Dr. Talamantes (Chato Culp MD R2) Attending Attestation Patient seen and examined, discussed with resident team. I agree with assessment and management as documented and discussed with me. Ms. Palomo reports that breathing is better, but she is having difficulty with wheezing. She tolerated dialysis yesterday and reports that her next session is on Thursday. Will add steroids for treatment of suspected COPD exacerbation. (Esperanza Talamantes MD) Problem List: (1) Acute on chronic kidney failure Status: Acute Plan: Likely multifactorial etiology, including rhabdomyolysis, ATN, cardiogenic. Creatinine reached a peak of 6.19 with BUN of 82, with decreasing urinary output and increasing potassium level, and decision was made to initial hemodialysis. She received her second treatment yesterday. Kidney function now improving, electrolytes stable. - Nephrology on board - Hemodialysis as needed - Monitor I&O's, urine output - Avoid nephrotoxic agents - Renally dose medications - Monitor electrolytes - Monitor kidney function (2) Chronic obstructive lung disease Status: Acute Plan: Significant wheezing on examination, but improved from yesterday. Could be COPD exacerbation versus cardiac wheezing from CHF/pulmonary fluid overload. She improves with breathing treatments. Lasix also seems to help. - DuoNeb treatments q4hrs. - Allergic to corticosteroids. - Continue incentive spirometer, EZ Pap (3) CHF, chronic Status: Chronic Plan: History of congestive heart failure, with possible acute exacerbation with fluid overload, mild basilar crackles. Chest x-ray showing significant pulmonary edema. - Continue Lopressor from home. - Monitor fluid status, daily I's and O's and weights. - Check BNP level (4) Atrial fibrillation Status: Chronic Plan: Rate controlled, rhythm normal on examination today. Has ICD in place. - Cardiology on board - Was on [email or web address], currently held by cardiology. Has significant bruising on arms. - Continue aspirin and Plavix (5) Coronary artery disease Status: Chronic Plan: Presented with elevated troponin and T-wave flattening and has a history of coronary artery disease. Had negative cardiac PET in 2015. No chest pain currently. - Cardiology on board. - Continue aspirin and Plavix. - Continue beta dex. - Stress test if clinical status improves. (6) Pressure ulcer Status: Acute Plan: See physical exam; several lesions noted on presentation to ICU. Do not appear acutely infected. - Wound care nurse consulted, appreciate recommendations - Topical ointments to promote healing - Air mattress - Rotate patient every 2 hours - Monitor clinically (7) Depressed Status: Acute Plan: Significant depression with recent loss of family members. Also with significant weight loss. Symptoms seem to be improving, but she is upset about her current health status. Appetite has improved and she is eating well. - Remeron 15 mg HS for depression and appetite stimulation. (8) Rhabdomyolysis Status: Resolved Plan: Found down on ground, initially CK significantly elevated. Developed PRATIMA and rhabdomyolysis. CK trended down, but PRATIMA worsening. IVF discontinued due to fluid overload and dyspnea. (9) Dementia Status: Chronic Plan: Mild dementia, oriented to person place and situation, but not to time, mild confusion at baseline. - Continue home Aricept (10) FEN/PPX Status: Acute Plan: Fluids: With dialysis. Monitor fluid status routinely. Electrolytes: Monitor Nutrition: Renal diet, mechanical soft consistency per speech therapy (Chato Culp MD R2) Problem Qualifiers (1) Atrial fibrillation: Qualified Code: I48.2 - Chronic atrial fibrillation (2) Coronary artery disease: Qualified Code: I25.118 - Coronary artery disease of [place] artery of [place] heart with stable angina pectoris (3) Rhabdomyolysis: Qualified Code: M62.82 - Non-traumatic rhabdomyolysis (4) Dementia: Qualified Code: G30.1 - Late onset Alzheimer's disease without behavioral disturbance Chato Cupl MD R2 Nov 27, 2016 10:53 Esperanza Talamantes MD Nov 27, 2016 21:09
[2016-11-27] MEDS: predniSONE 20 MG TAB PO SCH (15:00)
[2016-11-27] MEDS: AZITHROMYCIN 250 MG TAB PO SCH (16:37)
[2016-11-27] MEDS ORDERED: BUMETANIDE INJ 1 MG/4 ML VIAL IV PUSH ONE (18:00)
--- NOTE | 2016-11-27 18:02 | HHI.NPPN ---
Subjective History of Present Illness This patient is a 76-year-old female. Patient is a poor historian and history primarily obtained from the records. According to the records I reviewed the patient has a history of diabetes mellitus, hypertension as well as HIV. Infectious disease is currently in consultation as well as critical care. The patient was admitted to this institution on November 19, 2016 after being found "down" in her apartment. On presentation to the hospital she was noted to have a blood sugar of 957 with a creatinine of 2.68 and initially a sodium of 133 as well as a total CO2 on BMP of 10.6. Beta hydroxybutyrate was elevated. Patient has been treated for DKA and serum sodium level as expected has increased as a glucose level has dropped. Creatinine level is slightly improved today at 2.56. There is also evidence of rhabdomyolysis on presentation with significantly elevated CK level and a urinalysis positive for large amount of blood but minimal rbc. Of interest patient was taking Crestor as an outpatient. Additional Remarks Patient complaining of increasing shortness of breath since yesterday. Is making urine but no I/O documented. Review of Systems General Constitutional: Fatigue Respiratory Lungs: SOB Gastrointestinal GI Remarks Nausea, anorexia Objective Data Data 11/26/16 11/27/16 19:00 07:00 Intake Total 380 ml 360 ml Balance 380 ml 360 ml Intake Oral 380 ml 360 ml IV Total 0 ml # Voids 1 1 # Bowel Movements 1 1 Vital Signs Date Time Temp Pulse Resp B/P Pulse Ox O2 Delivery O2 Flow Rate FiO2 11/27/16 16:00 97.2 99 17 172/87 93 11/27/16 12:00 96.4 82 18 150/67 93 11/27/16 08:12 91 11/27/16 08:00 96.9 91 17 163/77 11/27/16 07:55 95 Nasal Cannula 2.00 11/27/16 04:00 99.0 83 20 159/65 92 11/27/16 00:00 97.6 90 18 136/60 95 11/26/16 20:29 97.2 96 20 130/56 91 11/26/16 20:24 95 Nasal Cannula 2.00 -: 11/27/16 0419 11/27/16 0419 Medication Review Current Medications Sodium Chloride (NS 1000 ml Inj) 1,000 ml @ 2,000 mls/hr Q30M ONCE IV Last administered on 11/19/16 17:16; Start 11/19/16 at 17:26; Stop 11/19/16 at 17:55 ; Status DC Sodium Chloride 2 ml 2 ml UNSCH PRN IVF FLUSH AFTER USING IV ACCESS Last administered on 11/19/16 18:58; Start 11/19/16 at 17:00 Vancomycin HCl 1000 mg/Sodium Chloride 250 ml @ 250 mls/hr ONCE ONCE IV Last administered on 11/19/16 20:03; Start 11/19/16 at 17:30; Stop 11/19/16 at 18:29 ; Status DC Aztreonam 2000 mg/ Sodium Chloride 100 ml @ 200 mls/hr ONCE STAT IV Last administered on 11/19/16 20:56; Start 11/19/16 at 17:20; Stop 11/19/16 at 17:49 ; Status DC Metronidazole (Flagyl 500 Mg Inj) 100 ml @ 100 mls/hr ONCE STAT IV Last administered on 11/19/16 17:44; Start 11/19/16 at 17:20; Stop 11/19/16 at 18:19 ; Status DC Acetaminophen 650 mg 650 mg ONCE ONCE RECTAL Last administered on 11/19/16 17 :44; Start 11/19/16 at 17:30; Stop 11/19/16 at 17:31; Status DC Sodium Chloride 1,000 ml @ 250 mls/hr Q4H IV Last administered on 11/20/16 06 :33; Start 11/19/16 at 18:33; Stop 11/21/16 at 10:31; Status DC Dextrose/Sodium Chloride (D5W-NS 1000 ml Inj) 1,000 ml @ 120 mls/hr Q8H20M IV Last administered on 11/20/16 04:33; Start 11/19/16 at 18:33; Stop 11/21/16 at 10:31; Status DC Insulin Human Regular 5 units 5 units BOLUS ONCE IV PUSH Last administered on 11/19/16 18:58; Start 11/19/16 at 18:45; Stop 11/19/16 at 18:46; Status DC Insulin Human Regular 100 units/ Sodium Chloride 100 ml @ 0 mls/hr TITRATE IV Last administered on 11/19/16 19:39; Start 11/19/16 at 18:45; Stop 11/20/16 at 08:33; Status DC Potassium Chloride 100 ml @ 100 mls/hr Q1H PRN IV SEE LABEL COMMENTS; Start at 18:45; Stop 11/21/16 at 10:31; Status DC Potassium Chloride 100 ml @ 50 mls/hr Q2H PRN IV SEE LABEL COMMENTS; Start at 18:45; Stop 11/21/16 at 10:31; Status DC Potassium Chloride 100 ml @ 100 mls/hr Q1H PRN IV SEE LABEL COMMENTS; Start at 18:45; Stop 11/21/16 at 10:31; Status DC Potassium Chloride 100 ml @ 100 mls/hr Q1H PRN IV SEE LABEL COMMENTS; Start at 18:45; Stop 11/21/16 at 10:31; Status DC Potassium Chloride 100 ml @ 50 mls/hr Q2H PRN IV SEE LABEL COMMENTS; Start at 18:45; Stop 11/21/16 at 10:31; Status DC Potassium Chloride 100 ml @ 50 mls/hr Q2H PRN IV SEE LABEL COMMENTS; Start at 18:45; Stop 11/21/16 at 10:31; Status DC Potassium Chloride 100 ml @ 50 mls/hr Q2H PRN IV SEE LABEL COMMENTS Last administered on 11/20/16t 00:18; Start 11/19/16 at 18:45; Stop 11/21/16 at 10:31 ; Status DC Potassium Chloride (KCl 20 Meq Premix Inj) 100 ml @ 50 mls/hr Q2H PRN IV SEE LABEL COMMENTS; Start 11/19/16 at 18:45; Stop 11/20/16 at 13:53; Status DC Sodium Bicarbonate (Sodium Bicarbonate 8.4% Inj) 100 meq UNSCH PRN IV SEE LABEL COMMENTS; Start 11/19/16 at 18:45 Sodium Bicarbonate 50 meq 50 meq UNSCH PRN IV SEE LABEL COMMENTS; Start at 18:45 Sodium Phosphate 15 mmol/Sodium Chloride 105 ml @ 25 mls/hr UNSCH PRN IV SEE LABEL COMMENTS; Start 11/19/16 at 18:45; Stop 11/21/16 at 10:31; Status DC Pharmacy Profile Note (Vancomycin Consult Pharmacy) 0 ml @ 0 mls/hr UNSCH OTHER ; Start 11/19/16 at 22:30; Stop 11/25/16 at 13:53; Status DC Miscellaneous Medication (ASP Crit: Doc allergy to Penicillin/ Cephalosp) 1 UNSCH X1 PRN .XX PHARMACY DOCUMENTATION; Start 11/19/16 at 22:45; Stop at 22:44; Status DC Miscellaneous Medication 1 1 UNSCH X1 PRN XX PHARMACY DOCUMENTATION; Start at 22:45; Stop 11/20/16 at 22:44; Status DC Meropenem/Sodium Chloride (Merrem Inj/NS Inj) 100 ml @ 200 mls/hr Q12H IV Last administered on 11/20/16 12:23; Start 11/20/16 at 00:00; Stop 11/20/16 at 15:05; Status DC Aspirin (Aspirin Supp) 300 mg ONCE ONCE RECTAL Last administered on 11/20/16 08:57; Start 11/20/16 at 01:45; Stop 11/20/16 at 01:48; Status DC Pantoprazole Sodium (Protonix Inj) 40 mg DAILY IV Last administered on 09:53; Start 11/20/16 at 09:00 Ondansetron HCl (Zofran Inj) 4 mg Q6H PRN IV NAUSEA OR VOMITING Last administered on 11/21/16 08:57; Start 11/20/16 at 04:15 Albuterol/ Ipratropium (Duoneb Neb) 1 ampule Q6HR NEB INH Last administered on 11/24/16 09:55; Start 11/20/16 at 10:00; Stop 11/24/16 at 10:00; Status DC Albuterol Sulfate (Albuterol Neb) 2.5 mg Q2HR NEB PRN INH SOB/WHEEZING Last administered on 11/26/16 07:42; Start 11/20/16 at 04:15 Miscellaneous Information 1 Q361D XX Last administered on 11/20/16 04:15; Start 11/20/16 at 04:15 Chlorhexidine Gluconate (Chlorhexidine 2% Cloth) Taper DAILY@04 TOP Last administered on 11/23/16 04:00; Start 11/21/16 at 04:00; Stop 11/17/17 at 03:59 Chlorhexidine Gluconate 3 pack 3 pack UNSCH PRN TOP HYGIENIC CARE; Start at 04:15 Potassium Phosphate/Sodium Chloride (Potassium Phosphate Inj/NS 250 ml Inj) 260 ml @ 43.333 mls/ hr ONCE ONCE IV Last administered on 11/20/16 05:48; Start 11/20/16 at 04:30; Stop 11/21/16 at 10:31; Status DC Nystatin (Mycostatin Cream) 1 applic Q12HR TOPICAL Last administered on 09:54; Start 11/20/16 at 09:00 Dextrose 50 ml 50 ml STK-MED ONCE .ROUTE ; Start 11/20/16 at 07:01; Stop at 07:02; Status DC Heparin Sodium/ Dextrose (Heparin-D5W Inj) 250 ml @ 0 mls/hr TITRATE IV Last administered on 11/20/16 08:47; Start 11/20/16 at 07:00; Stop 11/21/16 at 14:14 ; Status DC Miscellaneous Medication ([facility] Information) Please discontinue previ... ONCE ONCE .XX ; Start 11/20/16 at 08:45; Stop 11/20/16 at 08:46; Status DC Dextrose (D50w (Vial) Inj) 25 ml UNSCH PRN IV PUSH HYPOGLYCEMIA - SEE COMMENTS ; Start 11/20/16 at 08:45; Stop 11/20/16 at 13:53; Status DC Glucagon (Glucagon Inj) 1 mg UNSCH PRN OTHER HYPOGLYCEMIA-SEE COMMENTS; Start 11/20/16 at 08:45; Stop 11/20/16 at 13:53; Status DC Insulin Aspart (NovoLOG SUPPLEMENTAL SCALE) 1 Q4H SQ Last administered on 12:00; Start 11/20/16 at 08:00; Stop 11/20/16 at 13:53; Status DC Insulin Detemir (Levemir Inj) 10 units Q12HR SQ Last administered on 11/20/16 20:16; Start 11/20/16 at 13:30; Stop 11/21/16 at 10:31; Status DC Clopidogrel Bisulfate (Plavix) 75 mg DAILY PO Last administered on 11/27/16 09: 53; Start 11/21/16 at 09:00 Aspirin 81 mg 81 mg DAILY CHEW Last administered on 11/27/16 09:52; Start 11/21 at 09:00 Sodium Chloride 1,000 ml @ 125 mls/hr Q8H IV Last administered on 11/20/16 20 :45; Start 11/20/16 at 15:00; Stop 11/21/16 at 10:31; Status DC Meropenem/Sodium Chloride (Merrem Inj/NS Inj) 100 ml @ 200 mls/hr Q12H IV Last administered on 11/23/16 12:40; Start 11/21/16 at 00:00; Stop 11/23/16 at 12 :43; Status DC Dextrose (D50w (Vial) Inj) 25 ml UNSCH PRN IV PUSH HYPOGLYCEMIA - SEE COMMENTS ; Start 11/20/16 at 17:00 Glucagon (Glucagon Inj) 1 mg UNSCH PRN OTHER HYPOGLYCEMIA-SEE COMMENTS; Start 11/20/16 at 17:00 Insulin Aspart 1 1 Q4HR SQ Last administered on 11/27/16 12:46; Start 11/20/16 at 16:00 Vancomycin HCl 1000 mg/Sodium Chloride 250 ml @ 250 mls/hr ONCE ONCE IV Last administered on 11/21/16 08:58; Start 11/21/16 at 09:00; Stop 11/21/16 at 09:59 ; Status DC Sodium Bicarbonate/ Sodium Chloride (Sodium Bicarbonate 8.4% Inj/1/2 NS 1000 ml Inj) 1,075 ml @ 75 mls/hr [id number] IV Last administered on 11/21/16 23:41; Start 11/21/16 at 11:30; Stop 11/22/16 at 12:25; Status DC Cholecalciferol (Vitamin D3) 2,000 units DAILY PO Last administered on 09:52; Start 11/21/16 at 14:15 Heparin Sodium (Porcine) (Heparin Inj) 5,000 units Q12HR SQ Last administered on 11/27/16 09:53; Start 11/21/16 at 21:00; Stop 11/27/16 at 14:26; Status DC Metoprolol Tartrate (Lopressor) 25 mg Q12HR PO Last administered on 11/27/16 09 :53; Start 11/21/16 at 14:00 Bumetanide 1 mg 1 mg ONCE ONCE IV PUSH Last administered on 11/22/16 12:03; Start 11/22/16 at 11:45; Stop 11/22/16 at 11:46; Status DC Sodium Bicarbonate/ Dextrose (Sodium Bicarbonate 8.4% Inj/D5W 1000 ml Inj) 1, 150 ml @ 100 mls/hr [id number] IV Last administered on 11/23/16 09:03; Start 11/22 at 14:00; Stop 11/23/16 at 10:17; Status DC Insulin Detemir 10 units 10 units Q12HR SQ Last administered on 11/23/16 21:38 ; Start 11/23/16 at 09:45; Stop 11/24/16 at 07:15; Status DC Sodium Chloride (NS 1000 ml Inj) 1,000 ml @ 100 mls/hr Q10H IV Last administered on 11/23/16 11:00; Start 11/23/16 at 11:00; Stop 11/23/16 at 11:05; Status DC Mirtazapine (Remeron) 15 mg HS PO Last administered on 11/26/16 23:05; Start at 21:00 Donepezil HCl 5 mg 5 mg HS PO Last administered on 11/26/16 23:06; Start at 21:00 Vancomycin HCl/ Sodium Chloride (Vancomycin Inj/ NS 250 ml Inj) 250 ml @ 250 mls/hr ONCE ONCE IV Last administered on 11/23/16 12:40; Start 11/23/16 at 12: 00; Stop 11/23/16 at 12:59; Status DC Senna/Docusate Sodium 2 tab 2 tab ONCE ONCE PO Last administered on 11/23/16 10:30; Start 11/23/16 at 10:30; Stop 11/23/16 at 10:31; Status DC Sodium Bicarbonate 150 meq/Sodium Chloride 1,150 ml @ 70 mls/hr [id number] IV Last administered on 11/24/16 20:52; Start 11/23/16 at 12:00; Stop 11/25/16 at 12: 00; Status DC Meropenem/Sodium Chloride (Merrem Inj/NS Inj) 100 ml @ 200 mls/hr Q24H IV Last administered on 11/24/16 00:58; Start 11/24/16 at 00:00; Stop 11/24/16 at 08: 18; Status DC Insulin Detemir (Levemir Inj) 5 units Q12HR SQ Last administered on 11/27/16 09 :57; Start 11/24/16 at 09:00 Mupirocin (Bactroban 2% Oint) 1 applic Q12HR TOPICAL Last administered on 09:53; Start 11/24/16 at 10:00 Senna/Docusate Sodium (Marlene-Colace) 2 tab ONCE ONCE PO Last administered on 11:49; Start 11/24/16 at 10:15; Stop 11/24/16 at 10:16; Status DC Acetaminophen (Tylenol) 500 mg Q4H PRN PO PAIN SCALE 3 TO 6 Last administered on 11/24/16 15:17; Start 11/24/16 at 13:30 Oxycodone HCl (Roxicodone) 5 mg Q6H PRN PO PAIN SCALE 7 TO 10; Start 11/24/16 at 13:30 Furosemide 20 mg 20 mg ONCE ONCE IV PUSH Last administered on 11/24/16 17:20; Start 11/24/16 at 16:00; Stop 11/24/16 at 16:01; Status DC Sodium Chloride (NS 1000 ml Inj) 1,000 ml @ 0 mls/hr Q0M PRN IV For Prime & Rinse Back; Start 11/25/16 at 11:55 Heparin Sodium (Porcine) 8000 units 8,000 units UNSCH PRN IVF WITH DIALYSIS Last administered on 11/25/16 16:36; Start 11/25/16 at 12:00 Sodium Chloride 1,000 ml @ 200 mls/hr Q5H PRN IV WITH DIALYSIS; Start 11/25/16 at 11:55 Sodium Chloride (NS 1000 ml Inj) 1,000 ml @ 0 mls/hr Q0M PRN IV WITH DIALYSIS; Start 11/25/16 at 11:55 Mannitol (Mannitol Inj) 12.5 gm UNSCH PRN IV WITH DIALYSIS; Start 11/25/16 at 12 :00 Albumin Human (Albumin 25% Inj) 25 gm UNSCH PRN IV WITH DIALYSIS; Start at 12:00 Sodium Chloride (NS Flush) 5 ml UNSCH PRN IV FLUSH WITH DIALYSIS; Start at 12:00 Heparin Sodium (Porcine) (Heparin Inj) UNSCH PRN .XX WITH DIALYSIS; Start 11/25 at 12:00 Gentamicin Sulfate (Gentamicin (Dialysis) Inj) 20 mg UNSCH PRN IV WITH DIALYSIS Last administered on 11/25/16 16:35; Start 11/25/16 at 12:00 Ondansetron HCl (Zofran Inj) 4 mg UNSCH PRN IV WITH DIALYSIS; Start 11/25/16 at 12:00 Acetaminophen (Tylenol) 650 mg UNSCH PRN PO for headach, pain, temp > 101F Last administered on 11/26/16 17:08; Start 11/25/16 at 12:00 Diphenhydramine HCl (Benadryl) 25 mg UNSCH PRN PO for hives/itching/anaphylaxis ; Start 11/25/16 at 12:00 Nitroglycerin (Nitrostat Sl) 0.4 mg UNSCH PRN SL CHEST PAIN; Start 11/25/16 at 12:00 Clonidine (Catapres) 0.1 mg UNSCH PRN PO for BP > 180/100 X 2 readings; Start 11/25/16 at 12:00 Gelatin (Gelfoam 12 Mm/7 Mm Top) 1 foam UNSCH PRN TOP SEE LABEL COMMENTS; Start 11/25/16 at 12:00 Heparin Sodium (Porcine) (*HEPARIN INJ Periprocedural ONLY) 10,000 units STK- MED ONCE .ROUTE Last administered on 11/25/16 14:02; Start 11/25/16 at 13:48; Stop 11/25/16 at 13:49; Status DC Fluconazole (Diflucan) 100 mg DAILY PO Last administered on 11/27/16 09:53; Start 11/25/16 at 15:00; Stop 12/02/16 at 14:59 Furosemide 20 mg 20 mg ONCE ONCE IV PUSH Last administered on 11/25/16 18:21; Start 11/25/16 at 15:00; Stop 11/25/16 at 15:01; Status DC Calcium Gluconate/ Dextrose (Calcium Gluconate Inj/D5W 100 ml Inj) 110 ml @ 110 mls/hr ONCE ONCE IV ; Start 11/26/16 at 06:30; Stop 11/26/16 at 06:30; Status DC Calcium Carbonate 1000 mg 1,000 mg ONCE ONCE CHEW Last administered on 06:38; Start 11/26/16 at 06:30; Stop 11/26/16 at 06:32; Status DC Calcium Gluconate/ Sodium Chloride (Calcium Gluconate Inj/NS Inj) 110 ml @ 110 mls/hr ONCE ONCE IV Last administered on 11/26/16 07:02; Start 11/26/16 at 07: 00; Stop 11/26/16 at 07:59; Status DC Ergocalciferol (Drisdol) 50,000 units Q7D PO Last administered on 11/26/16 11: 00; Start 11/26/16 at 07:00 Albuterol/ Ipratropium (Duoneb Neb) 1 ampule Q4HR WHILE AWAKE NEB NEB Last administered on 11/27/16 16:19; Start 11/26/16 at 12:00 Furosemide (Lasix Inj) 40 mg ONCE ONCE IV PUSH Last administered on 11/26/16 11:01; Start 11/26/16 at 09:00; Stop 11/26/16 at 09:18; Status DC Epoetin Nii (Epogen Inj) 10,000 units WITH DIALYSIS SQ Last administered on 17:54; Start 11/26/16 at 17:15 Azithromycin (Zithromax) 500 mg DAILY PO Last administered on 11/27/16 16:37; Start 11/27/16 at 14:30; Stop 11/29/16 at 15:00 Prednisone (Deltasone) 40 mg DAILY PO ; Start 11/27/16 at 15:00 Apixaban (Eliquis) 2.5 mg BID PO ; Start 11/27/16 at 21:00 Bumetanide (Bumex Inj) 2 mg ONCE ONCE IV PUSH ; Start 11/27/16 at 18:00; Stop at 18:01 Physical Exam General Appearance: Pale, Malnourished Appearance Remarks Appears to be mildly dyspneic. Pulmonary Resp Exam: Breath Sounds Equal, No Distress, Crackles (coarse crackles in the bases bilaterally) Cardiology CV Exam: Regular, Normal Sinus Rhythm Gastrointestinal/Abdomen GI Exam: Soft, Non-Tender Integumentary Skin Exam: Clear, Warm Extremeties Extremities Exam: Moderate Edema (no edema seen in the legs however there was 2 + pitting edema involving the hips and lower torso and sacrum.), Pitting Edema, Dependent Edema Neurologic Neuro Exam: Alert, Awake, Speech Clear, Moving All Extremities Assessment/Plan Discussed Condition With: Patient Problem List: (1) PRATIMA (acute kidney injury) Plan: Renal indices improve with dialysis however the patient appears to have significant fluid retention. Is dyspneic but no wheezing clinically. I have ordered a chest x-ray and requested the RN to notify the primary. 1 dose bumetanide 2 mg IV 1. Request I and O's. Repeat dialysis tomorrow for further fluid removal. Medications should be adjusted for the patient's estimated GFR if clinically indicated. Avoid agents with significant potential for nephrotoxicity possible including NSAIDs for analgesia, iodine contrast agents. Gadolinium is contraindicated if the GFR is below 30. (2) Rhabdomyolysis Plan: Improved. Most likely was secondary to compression injury while patient was on the floor. Patient was on a statin drug i.e. Crestor so uncertain to what degree this may have played a role also. (3) Sepsis Plan: Infectious disease following. (4) CKD (chronic kidney disease) stage 3, GFR 30-59 ml/min Plan: Secondary to nephrosclerosis of hypertension and aging. (5) Vitamin D deficiency Plan: Vitamin D supplementation as ordered. Problem Qualifiers (1) Rhabdomyolysis: Qualified Code: M62.82 - Non-traumatic rhabdomyolysis Mario Valdes MD Nov 27, 2016 18:02
[2016-11-27] MEDS: RESP: ALBUTEROL 2.5 MG/3 ML NEB (PRN) INH (18:06)
--- NOTE | 2016-11-27 18:23 | RADRPT ---
EXAM DATE/TIME: 11/27/2016 18:11 [facility] COMPARISON: CHEST SINGLE AP, November 25, 2016, 14:15. INDICATIONS : Short of breath MEDICAL HISTORY : Cardiovascular disease. Congestive heart failure. Hypertension. SURGICAL HISTORY : CABG. Pacemaker. ENCOUNTER: Subsequent ACUITY: 1 week PAIN SCORE: 10/10 LOCATION: Bilateral chest FINDINGS: Central line and left subclavian transvenous pacer have not changed. There is evidence for prior medi an sternotomy. There is volume overload, pulmonary edema and bilateral pleural effusions and the abril a appears slightly worse. Consolidation in the lung bases particularly on the left side is difficult to exclude. CONCLUSION: Volume overload and slight worsening of pulmonary edema. Alton Jimenez MD on November 27, 2016 at 18:20 Board Certified Radiologist. This report was verified electronically.
[2016-11-27] MEDS: MIRTAZAPINE 15 MG TAB PO SCH (21:20)
[2016-11-27] MEDS: ACETAMINOPHEN 325 MG TAB PO PRN (21:21)
[2016-11-27] MEDS: APIXABAN 2.5 MG TABLET PO SCH (21:21)
[2016-11-27] MEDS: DONEPEZIL HCL 5 MG TAB PO SCH (21:21)
[2016-11-28] VITALS (8 sets, daily range): BP systolic 113–148; BP diastolic 54–85; PULSE 69–89; RESP 18–20; TEMP 96.6–97.5; O2SAT 92–94
[2016-11-28] MEDS: CHLORHEXIDINE GLUCONATE 2 % 1 PACK (2 CLOTHS) TOP SCH ×2 (00:24→20:34)
[2016-11-28] MEDS: MEDIUM DOSE INSULIN NOVOLOG SUPPLEMENTAL SCALE SQ SCH ×7 (04:00→23:38)
[2016-11-28 05:35] LABS: BICARBONATE 27.9 MEQ/L (21.0-32.0); POTASSIUM 5.1 MEQ/L (3.5-5.1)
[2016-11-28] MEDS: RESP: ALBUTEROL 2.5 MG/IPRATROPIUM 0.5 MG NEB (SCH) NEB ×4 (06:14→19:22)
[2016-11-28] MEDS: INSULIN DETEMIR 100 UNITS/ML VIAL SQ SCH ×2 (08:11→20:31)
[2016-11-28] MEDS: CLOPIDOGREL 75 MG TAB PO SCH (08:12)
[2016-11-28] MEDS: FLUCONAZOLE 100 MG TAB PO SCH (08:12)
[2016-11-28] MEDS: AZITHROMYCIN 250 MG TAB PO SCH (08:12)
[2016-11-28] MEDS: CHOLECALCIFEROL (VIT D3) 1000 UNIT TAB PO SCH (08:12)
[2016-11-28] MEDS: METOPROLOL TARTRATE 25 MG TAB PO SCH ×2 (08:12→20:31)
[2016-11-28] MEDS: predniSONE 20 MG TAB PO SCH (08:12)
[2016-11-28] MEDS: APIXABAN 2.5 MG TABLET PO SCH ×2 (08:13→20:31)
[2016-11-28] MEDS: PANTOPRAZOLE SODIUM 40 MG VIAL IV SCH (08:13)
[2016-11-28] MEDS: ASPIRIN 81 MG CHEW TAB CHEW SCH (08:14)
[2016-11-28] MEDS: NYSTATIN 100,000 UNIT/GM CREAM 15 GM TOPICAL SCH ×2 (08:17→20:34)
[2016-11-28] MEDS: MUPIROCIN 2% OINT 22 GM TUBE TOPICAL SCH ×2 (08:17→20:34)
[2016-11-28] MEDS: GENTAMICIN SULFATE (DIALYSIS USE ONLY) 20 MG/2 ML VIAL IV PRN (11:35)
[2016-11-28] MEDS: HEPARIN SODIUM - IV 10,000 UNITS/10 ML VIAL IVF PRN (11:35)
[2016-11-28] MEDS: EPOETIN ALFA 10,000 UNITS/ML VIAL SQ SCH (11:35)
--- NOTE | 2016-11-28 14:08 | HHI.FPPN ---
Subjective Remarks Seen in dialysis. Feeling much less SOB compared to yesterday, though she said she had an episode of panicky feeling this morning which resolved spontaneously. No CP. Still feels somewhat weak but overall improved. (Anthony Kimbrough MD R1) Objective Vitals Vital Signs Date Time Temp Pulse Resp B/P Pulse Ox O2 Delivery O2 Flow Rate FiO2 11/28/16 08:00 96.6 82 18 148/85 94 11/28/16 04:00 97.4 76 20 139/61 92 11/28/16 00:00 97.5 89 18 133/60 93 11/27/16 21:32 94 Nasal Cannula 2.00 11/27/16 20:00 97.8 88 20 147/63 92 11/27/16 20:00 89 11/27/16 16:00 97.2 99 17 172/87 93 I/O 11/27/16 11/27/16 11/27/16 11/28/16 11/28/16 11/28/16 07:00 15:00 23:00 07:00 15:00 23:00 Intake Total 0 ml 400 ml 240 ml Balance 0 ml 400 ml 240 ml Intake Oral 400 ml 240 ml IV Total 0 ml 0 ml # Voids 2 0 # Bowel Movements 0 1 (Anthony Kimbrough MD R1) Result Diagram: 11/27/16 0419 11/28/16 0437 Imaging Last Impressions Chest X-Ray 11/27/16 0000 Signed Impressions: Service Date/Time: November 18:11 - CONCLUSION: Volume overload and slight worsening of pulmonary edema. Alton Jimenez MD Catheter Placement X-Ray 11/25/16 0000 Signed Impressions: Service Date/Time: Friday, November 25, 2016 00:00 - CONCLUSION: Uncomplicated line placement as above. Postprocedural chest radiograph will be obtained to confirm position. Chad Nelson MD Abdomen Ultrasound 11/21/16 0000 Signed Impressions: Service Date/Time: Monday, November 21, 2016 16:04 - CONCLUSION: 1. Dilated common bile duct measuring 11 mm. Correlation with alkaline phosphatase and bilirubin level is suggested to rule out biliary obstruction. 2. Thick-walled stone-containing gallbladder with minimal pericholecystic fluid. If there is clinical concern for acute cholecystitis a hepatobiliary scan may be helpful to confirm cystic duct obstruction. 3. Mild hepatomegaly. 4. Small right pleural effusion. 5. Trace ascites. 6. Poor visualization of the pancreas, abdominal aorta and inferior vena cava secondary to shadowing bowel gas. Joey Rosenthal MD Pelvis X-Ray 11/19/16 0000 Signed Impressions: Service Date/Time: Saturday, November 19, 2016 18:23 - CONCLUSION: 1. Moderate degenerative changes involving the hip joints bilaterally. 2. Degenerative changes involving the lower lumbar spine. 3. No acute fracture or dislocation. Joey Rosenthal MD Head CT 11/19/16 0000 Signed Impressions: Service Date/Time: Saturday, November 19, 2016 17:54 - CONCLUSION: No acute disease. Joey Rosenthal MD Cervical Spine CT 11/19/16 0000 Signed Impressions: Service Date/Time: Saturday, November 19, 2016 17:54 - CONCLUSION: 1. Extensive motion artifact particularly at C3 and C4 levels which limits interpretation of these levels. 2. Grade I retrolisthesis of C3 in relation to C4 and C2 as well as C4 in relation to C5. 3. Diffuse cervical spondylosis at C5-C6, C6- C7 and to a lesser extent at C4-C5 and C3-C4. 4. No acute fracture or prevertebral soft-tissue swelling. 5. Mild spinal stenosis at C5-C6. 6. Mild bilateral foraminal narrowing at C5-C6 and C6-C7 and to a lesser extent at C4- C5 and C3-C4. 7. Reversal of the normal cervical lordosis. Joey Rsoenthal MD Objective Remarks GENERAL: Lying up in bed, appears more uncomfortable than yesterday, some accessory muscle use for breathing, no acute distress, attempting to eat breakfast SKIN: Mild pallor. No rashes. Large ecchymosis covering left forearm and distal 1/3 of left upper arm on posteromedial side. Ecchymosis of right mid-arm, left hip. These are resolving from prior exams. Cool and dry. Stage 2 sacral decubitus ulcer right buttock near midline. Stage 1 pressure ulcer right upper back, b/l heels. CARDIOVASCULAR: NRRR. Normal S1/S2. No MRG RESPIRATORY: Lungs CTAB. No crackles or wheezes. GASTROINTESTINAL: Abdomen soft, non-distended, and non-distended. MUSCULOSKELETAL: Small superficial abrasion on dorsal aspect of middle finger. Slightly erythematous but evidence of cellulitis or abscess. Full ROM. NEUROLOGICAL: Awake and alert. Moves all extremities without difficulty. Normal speech. Baseline cognitive status, which includes mild confusion but overall oriented to place and situation. Medications and IVs Current Medications Medications (Trade) Dose Ordered Sig/Francesca Route Start Time Stop Time Status Last Admin (NS Flush) 2 ml UNSCH PRN IVF 11/19/16 17:00 11/19/16 18:58 (Sodium Bicarbonate 8.4% Inj) 100 meq UNSCH PRN IV 11/19/16 18:45 (Sodium Bicarbonate 8.4% Inj) 50 meq UNSCH PRN IV 11/19/16 18:45 (Protonix Inj) 40 mg DAILY IV 11/20/16 09:00 11/28/16 08:13 (Zofran Inj) 4 mg Q6H PRN IV 11/20/16 04:15 11/21/16 08:57 Miscellaneous Information 1 Q361D XX 11/20/16 04:15 11/20/16 04:15 (Chlorhexidine 2% Cloth) Taper DAILY@04 TOP 11/21/16 04:00 11/17/17 03:59 11/23/16 04:00 (Chlorhexidine 2% Cloth) 3 pack UNSCH PRN TOP 11/20/16 04:15 (Mycostatin Cream) 1 applic Q12HR TOPICAL 11/20/16 09:00 11/28/16 08:17 (Plavix) 75 mg DAILY PO 11/21/16 09:00 11/28/16 08:12 (Aspirin Chew) 81 mg DAILY CHEW 11/21/16 09:00 11/28/16 08:14 (D50w (Vial) Inj) 25 ml UNSCH PRN IV PUSH 11/20/16 17:00 (Glucagon Inj) 1 mg UNSCH PRN OTHER 11/20/16 17:00 (NovoLOG SUPPLEMENTAL SCALE) 1 Q4HR SQ 11/20/16 16:00 11/28/16 08:00 (Vitamin D3) 2,000 units DAILY PO 11/21/16 14:15 11/28/16 08:12 (Lopressor) 25 mg Q12HR PO 11/21/16 14:00 11/28/16 08:12 (Remeron) 15 mg HS PO 11/23/16 21:00 11/27/16 21:20 (Aricept) 5 mg HS PO 11/23/16 21:00 11/27/16 21:21 (Levemir Inj) 5 units Q12HR SQ 11/24/16 09:00 11/28/16 08:11 (Bactroban 2% Oint) 1 applic Q12HR TOPICAL 11/24/16 10:00 11/28/16 08:17 (Tylenol) 500 mg Q4H PRN PO 11/24/16 13:30 11/24/16 15:17 Oxycodone HCl 5 mg 5 mg Q6H PRN PO 11/24/16 13:30 11/28/16 12:06 (NS 1000 ml Inj) 1,000 ml @ 0 mls/hr Q0M PRN IV 11/25/16 11:55 Heparin Sodium (Porcine) 8000 units 8,000 units UNSCH PRN IVF 11/25/16 12:00 11/28/16 11:35 Sodium Chloride 1,000 ml @ 200 mls/hr Q5H PRN IV 11/25/16 11:55 (NS 1000 ml Inj) 1,000 ml @ 0 mls/hr Q0M PRN IV 11/25/16 11:55 (Mannitol Inj) 12.5 gm UNSCH PRN IV 11/25/16 12:00 (Albumin 25% Inj) 25 gm UNSCH PRN IV 11/25/16 12:00 (NS Flush) 5 ml UNSCH PRN IV FLUSH 11/25/16 12:00 (Heparin Inj) UNSCH PRN .XX 11/25/16 12:00 (Gentamicin (Dialysis) Inj) 20 mg UNSCH PRN IV 11/25/16 12:00 11/28/16 11:35 (Zofran Inj) 4 mg UNSCH PRN IV 11/25/16 12:00 (Tylenol) 650 mg UNSCH PRN PO 11/25/16 12:00 11/27/16 21:21 (Benadryl) 25 mg UNSCH PRN PO 11/25/16 12:00 (Nitrostat Sl) 0.4 mg UNSCH PRN SL 11/25/16 12:00 (Catapres) 0.1 mg UNSCH PRN PO 11/25/16 12:00 (Gelfoam 12 Mm/7 Mm Top) 1 foam UNSCH PRN TOP 11/25/16 12:00 (Diflucan) 100 mg DAILY PO 11/25/16 15:00 12/02/16 14:59 11/28/16 08:12 (Drisdol) 50,000 units Q7D PO 11/26/16 07:00 11/26/16 11:00 (Zithromax) 500 mg DAILY PO 11/27/16 14:30 11/29/16 15:00 11/28/16 08:12 (Deltasone) 40 mg DAILY PO 11/27/16 15:00 11/28/16 08:12 (Eliquis) 2.5 mg BID PO 11/27/16 21:00 11/28/16 08:13 (Anthony Kimbrough MD R1) A/P Assessment and Plan 76 year old female with PMH of DM, AFib, COPD, CKD initially presented with DKA , rhabdomyolysis, and sepsis, now with resolved DKA, resolving rhabdomyolysis, but now with developing PRATIMA possibly due to ATN and requiring hemodialysis. Kidney function improving on dialysis, but now with significant wheezing, possibly mixed etiology of COPD and CHF/PRATIMA fluid overload. Discharge Planning Will need rehabilitation/SNF placement on discharge. Palliative care is involved. She wants aggressive care for the time being. s/d/w Dr. Kimbrough d/w Dr. Talamantes (Anthony Kimbrough MD R1) Attending Attestation Patient seen, examined, and discussed with resident team. I agree with assessment and management as documented and discussed with me. Pt reports that breathing is improved. She is seen with Dr Kimbrough in dialysis. She tolerated steroids without difficulty today. (Esperanza Talamantes MD) Problem List: (1) Acute on chronic kidney failure Status: Acute Plan: Likely multifactorial etiology, including rhabdomyolysis, ATN, cardiogenic. Creatinine reached a peak of 6.19 with BUN of 82, with decreasing urinary output and increasing potassium level, and decision was made to initial hemodialysis. She received her second treatment yesterday. Kidney function now improving, electrolytes stable. - Nephrology consulted, appreciate assistance - Hemodialysis per nephrology recs - Monitor I&O's, urine output - Avoid nephrotoxic agents - Renally dose medications - Monitor electrolytes - Monitor kidney function (2) Chronic obstructive lung disease Status: Acute Plan: Lungs now clear to auscultation. Sx could have been due to COPD exacerbation versus cardiac wheezing from CHF/pulmonary fluid overload. Lasix also seems to help. - DuoNeb treatments q4hrs - Continue prednisone 40 mg daily - Continue Azithromycin 500 mg PO daily x3 days - Continue incentive spirometer, EZ Pap (3) CHF, chronic Status: Chronic Plan: History of congestive heart failure, with possible acute exacerbation with fluid overload, mild basilar crackles. SOB now resolving. - Follow clinically, additional Lasix/Bumex if indicated - Continue Lopressor from home - Monitor fluid status, daily I's and O's and weights (4) Atrial fibrillation Status: Chronic Plan: Rate controlled, rhythm normal on examination today. Has ICD in place. - Cardiology on board - Was on [employer], currently held by cardiology. Has significant bruising on arms. - Continue aspirin and Plavix (5) Coronary artery disease Status: Chronic Plan: Presented with elevated troponin and T-wave flattening and has a history of coronary artery disease. Had negative cardiac PET in 2014. No chest pain currently. - Cardiology on board. - Continue aspirin and Plavix. - Continue beta dex. - Stress test if clinical status improves. (6) Pressure ulcer Status: Acute Plan: See physical exam; several lesions noted on presentation to ICU. Do not appear acutely infected. - Wound care nurse consulted, appreciate recommendations - Topical ointments to promote healing - Air mattress - Rotate patient every 2 hours - Monitor clinically (7) Depressed Status: Acute Plan: Significant depression with recent loss of family members. Also with significant weight loss. Symptoms seem to be improving, but she is upset about her current health status. Appetite has improved and she is eating well. - Remeron 15 mg HS for depression and appetite stimulation (8) Rhabdomyolysis Status: Resolved Plan: Found down on ground, initially CK significantly elevated. Developed PRATIMA and rhabdomyolysis. CK trended down, but PRATIMA worsening. IVF discontinued due to fluid overload and dyspnea. - Manage as above (9) Dementia Status: Chronic Plan: Mild dementia, oriented to person place and situation, but not to time, mild confusion at baseline. - Continue home Aricept (10) FEN/PPX Status: Acute Plan: Fluids: With dialysis. Monitor fluid status routinely. Electrolytes: Monitor Nutrition: Renal diet, mechanical soft consistency per speech therapy DVT: Resumed home Elequis (Anthony Kimbrough MD R1) Problem Qualifiers (1) Atrial fibrillation: Qualified Code: I48.2 - Chronic atrial fibrillation (2) Coronary artery disease: Qualified Code: I25.118 - Coronary artery disease of [place] artery of [place] heart with stable angina pectoris (3) Rhabdomyolysis: Qualified Code: M62.82 - Non-traumatic rhabdomyolysis (4) Dementia: Qualified Code: G30.1 - Late onset Alzheimer's disease without behavioral disturbance Anthony Kimbrough MD R1 Nov 28, 2016 14:08 Esperanza Talamantes MD Nov 28, 2016 20:31
--- NOTE | 2016-11-28 14:31 | HHI.HCPN ---
Reason for visit a. To assist with evaluation and management of symptoms including: pain, and dyspnea b. To assist medical decision maker(s) with: better understanding of current medical conditions; weighing benefits/burdens of medical treatment options; making medical treatment decisions. Subjective/Interval History Pt got back from dialysis, and says she feels much better, and could breath much easier. She denies pain. She recognize me and remembers my name. She is not confused and know where she is and that she just had dialysis. She remains capacitated to make medical decisions. I had a long talk with patient and spoke about the difficulty of fluid homeostasis and balance in the setting of cardiac and renal problems. She understand that with a bad heart, and a bad kidney, situation is not good, and one of these times she could be so short of breath that she needs to be put on life support, or need cpr, and resuscitation. She remains hopeful that her kidneys will get better and that she will not need magneto specialist dialysis. In terms of code status, with the pt's HCS in the room, and the nurses, she completed the living will. She will remain full code, but if things are not going well, if she needs, a peg or trach and they could not wean pt off life support, she would be okay with stopping life support and transition to comfort measures only. She does not ".. such procedures would serve only to prolong artificially the process of dying, and that I be permitted to naturally.." She also stated in her living will she does not want her son Kelvin Soria or Gregorio Soria to be involved in her health care decision making. She reaffirms Leti Quiroz to be HCS. Family/friend interactions Leti Quiroz at bedside. Advance Directives Living Will: Copy in medical record (Living will completed 06/02/2011 designated Kelvin Dey as Health Care Surrogate.) Health Care Surrogate: Copy in medical record Objective Vital Signs Date Time Temp Pulse Resp B/P Pulse Ox O2 Delivery O2 Flow Rate FiO2 11/28/16 08:00 96.6 82 18 148/85 94 11/28/16 04:00 97.4 76 20 139/61 92 11/28/16 00:00 97.5 89 18 133/60 93 11/27/16 21:32 94 Nasal Cannula 2.00 11/27/16 20:00 97.8 88 20 147/63 92 11/27/16 20:00 89 11/27/16 16:00 97.2 99 17 172/87 93 Physical Exam CONSTITUTIONAL/GENERAL: This is an adequately nourished patient, some mild dyspnea, but able to converse well. Able to eat lunch. SKIN: No jaundice, rashes, or lesions. Ecchymoses on upper extremities. No wounds seen anteriorly. Skin temperature appropriate. Not diaphoretic. HEAD: Atraumatic. Normocephalic. EYES: Pupils equal and round and reactive. Extraocular motions intact. No scleral icterus. No injection or drainage. Fundi not examined. ENT: Hearing grossly normal. Nose without bleeding or purulent drainage. Throat without visible erythema, exudates, masses, or lesions. NECK: Trachea midline. Supple, nontender. No palpable thyroid enlargement or nodularity. CARDIOVASCULAR: tachycardia without murmurs, gallops, or rubs. No JVD. Peripheral pulses symmetric. RESPIRATORY/CHEST: Symmetric, unlabored respirations. Breath sounds equal bilaterally. No wheezes, rales, or rhonchi. GASTROINTESTINAL: Abdomen soft, some tenderness on palpation, nondistended. No hepato-splenomegaly, or palpable masses. No guarding. Bowel sounds present. GENITOURINARY: Without palpable bladder distension. Mccord catheter in place. MUSCULOSKELETAL: Extremities without clubbing, cyanosis, or edema. No joint tenderness or effusion noted. No calf tenderness. No mottling or clubbing. LYMPHATICS: No palpable cervical or supraclavicular adenopathy. NEUROLOGICAL: Awake and alert. Motor and sensory grossly within normal limits. Follows commands. Cognitively sharp, mild memory problems.. Moves all extremities. PSYCHIATRIC:Not anxious, and looks better after dialysis.. Diagnostic Tests Laboratory Laboratory Tests Test 11/25/16 11/26/16 11/27/16 11/28/16 15:02 05:05 04:19 04:37 Hepatitis A IgM Antibody NEGATIVE (NEGATIVE) Hepatitis B Surface Antigen NEGATIVE (NEGATIVE) Hepatitis B Core IgM Antibody NEGATIVE (NEGATIVE) Hepatitis C Antibody NEGATIVE (NEGATIVE) White Blood Count 2.8 TH/MM3 4.0 TH/MM3 (4.0-11.0) (4.0-11.0) Red Blood Count 3.25 MIL/MM3 3.10 MIL/MM3 (4.00-5.30) (4.00-5.30) Hemoglobin 8.7 GM/DL 8.4 GM/DL (11.6-15.3) (11.6-15.3) Hematocrit 26.2 % 25.2 % (35.0-46.0) (35.0-46.0) Mean Corpuscular Volume 80.6 FL 81.2 FL (80.0-100.0) (80.0-100.0) Mean Corpuscular Hemoglobin 26.7 PG 27.2 PG (27.0-34.0) (27.0-34.0) Mean Corpuscular Hemoglobin 33.1 % 33.6 % Concent (32.0-36.0) (32.0-36.0) Red Cell Distribution Width 15.1 % 14.8 % (11.6-17.2) (11.6-17.2) Platelet Count 102 TH/MM3 129 TH/MM3 (150-450) (150-450) Mean Platelet Volume 8.3 FL 8.0 FL (7.0-11.0) (7.0-11.0) Sodium Level 140 MEQ/L 139 MEQ/L 136 MEQ/L (136-145) (136-145) (136-145) Potassium Level 4.2 MEQ/L 4.3 MEQ/L 5.1 MEQ/L (3.5-5.1) (3.5-5.1) (3.5-5.1) Chloride Level 102 MEQ/L 103 MEQ/L 100 MEQ/L (98-107) (98-107) (98-107) Carbon Dioxide Level 26.7 MEQ/L 30.1 MEQ/L 27.9 MEQ/L (21.0-32.0) (21.0-32.0) (21.0-32.0) Anion Gap 11 MEQ/L (5-15) 6 MEQ/L (5-15) 8 MEQ/L (5-15) Blood Urea Nitrogen 49 MG/DL (7-18) 30 MG/DL (7-18) 39 MG/DL (7-18) Creatinine 4.74 MG/DL 3.53 MG/DL 4.30 MG/DL (0.50-1.00) (0.50-1.00) (0.50-1.00) Estimat Glomerular Filtration 9 ML/MIN (>89) 13 ML/MIN (>89) 10 ML/MIN (>89) Rate Random Glucose 102 MG/DL 46 MG/DL 149 MG/DL (74-106) (74-106) (74-106) Calcium Level 7.3 MG/DL 8.0 MG/DL 7.6 MG/DL (8.5-10.1) (8.5-10.1) (8.5-10.1) Protein Corrected Calcium 8.6 MG/DL (8.5-10.1) Phosphorus Level 3.7 MG/DL (2.5-4.9) Magnesium Level 1.5 MG/DL (1.5-2.5) Total Protein 4.8 GM/DL (6.4-8.2) Albumin 1.8 GM/DL (3.4-5.0) Neutrophils (%) (Auto) 75.2 % (16.0-70.0) Lymphocytes (%) (Auto) 12.5 % (9.0-44.0) Monocytes (%) (Auto) 10.2 % (0.0-8.0) Eosinophils (%) (Auto) 1.6 % (0.0-4.0) Basophils (%) (Auto) 0.5 % (0.0-2.0) Neutrophils # (Auto) 3.0 TH/MM3 (1.8-7.7) Lymphocytes # (Auto) 0.5 TH/MM3 (1.0-4.8) Monocytes # (Auto) 0.4 TH/MM3 (0-0.9) Eosinophils # (Auto) 0.1 TH/MM3 (0-0.4) Basophils # (Auto) 0.0 TH/MM3 (0-0.2) CBC Comment DIFF FINAL Differential Comment Iron Level 58 MCG/DL (50-170) Total Iron Binding Capacity 169 MCG/DL (250-450) Percent Iron Saturation 34.2 % (20-50) Ferritin 160 NG/ML (8-252) B-Type Natriuretic Peptide 1409 PG/ML (0-100) Result Diagram: 11/27/16 0419 11/28/16 0437 Imaging Last Impressions Chest X-Ray 11/27/16 0000 Signed Impressions: Service Date/Time: November 18:11 - CONCLUSION: Volume overload and slight worsening of pulmonary edema. Alton Jimenez MD Catheter Placement X-Ray 11/25/16 0000 Signed Impressions: Service Date/Time: Friday, November 25, 2016 00:00 - CONCLUSION: Uncomplicated line placement as above. Postprocedural chest radiograph will be obtained to confirm position. Chad Nelson MD Abdomen Ultrasound 11/21/16 0000 Signed Impressions: Service Date/Time: Monday, November 21, 2016 16:04 - CONCLUSION: 1. Dilated common bile duct measuring 11 mm. Correlation with alkaline phosphatase and bilirubin level is suggested to rule out biliary obstruction. 2. Thick-walled stone-containing gallbladder with minimal pericholecystic fluid. If there is clinical concern for acute cholecystitis a hepatobiliary scan may be helpful to confirm cystic duct obstruction. 3. Mild hepatomegaly. 4. Small right pleural effusion. 5. Trace ascites. 6. Poor visualization of the pancreas, abdominal aorta and inferior vena cava secondary to shadowing bowel gas. Joey Rosenthal MD Pelvis X-Ray 11/19/16 0000 Signed Impressions: Service Date/Time: Saturday, November 19, 2016 18:23 - CONCLUSION: 1. Moderate degenerative changes involving the hip joints bilaterally. 2. Degenerative changes involving the lower lumbar spine. 3. No acute fracture or dislocation. Joey Rosenthal MD Head CT 11/19/16 0000 Signed Impressions: Service Date/Time: Saturday, November 19, 2016 17:54 - CONCLUSION: No acute disease. Joey Rosenthal MD Cervical Spine CT 11/19/16 0000 Signed Impressions: Service Date/Time: Saturday, November 19, 2016 17:54 - CONCLUSION: 1. Extensive motion artifact particularly at C3 and C4 levels which limits interpretation of these levels. 2. Grade I retrolisthesis of C3 in relation to C4 and C2 as well as C4 in relation to C5. 3. Diffuse cervical spondylosis at C5-C6, C6- C7 and to a lesser extent at C4-C5 and C3-C4. 4. No acute fracture or prevertebral soft-tissue swelling. 5. Mild spinal stenosis at C5-C6. 6. Mild bilateral foraminal narrowing at C5-C6 and C6-C7 and to a lesser extent at C4- C5 and C3-C4. 7. Reversal of the normal cervical lordosis. Joey Rosenthal MD Assessment and Plan Disease Oriented Problem List: (1) DM (diabetes mellitus screen) (2) Sepsis Comment: resolved (3) Rhabdomyolysis (4) Acute on chronic kidney failure Comment: on dialysis (5) PRATIMA (acute kidney injury) (6) Chest pain Comment: reportedly taking many nitrates (7) Congestive heart failure (8) Atrial fibrillation (9) Dementia Comment: mild beginning stages. Able to still remember physicians name, why she is in hospital, her current situation. (10) CHF, chronic (11) Chronic obstructive lung disease Symptom Scale: (1) Dyspnea 0-10 Scale: 3 (2) Pain 0-10 Scale: 3 Comment: abdominal and left leg. Pertinent Non-Medical Issues Psychosocial: Spiritual: Legal: Ethical issues impacting care: Important Contacts Leti Quiroz (friend). [phone] Miles Dey (son) [phone]. Unsure if this is the son that has . Prognosis 76 year old with hx of cardiac disease (not card cath candidate currently) hx of arrhythmia, congestive heart failure. Pt came in with DKA, sepsis, elevated troponin, and renal failure. sugars are controlled, pt off heparin drip, sepsis resolved. Main challenge is renal failure- likely combination of rhambdo , ATN, and chronic renal insufficiency. Unsure if it is permanent. Would be appropriate for hospice if goals were in comfort measures only. Code Status: Full Code Plan ==Capacity- Pt has capacity to make medical decisions today 11/28/2016. == Health Care surrogate- Leti Quiroz. via Living Will and Health Care Surrogate form. == Goals of Care: I had a long talk with patient and spoke about the difficulty of fluid homeostasis and balance in the setting of cardiac and renal problems. She understand that with a bad heart, and a bad kidney, situation is not good, and one of these times she could be so short of breath that she needs to be put on life support, or need cpr, and resuscitation. She remains hopeful that her kidneys will get better and that she will not need snf dialysis. She is willing to be placed in a nursing facility. == Code Status: Full Code. Completed Living Will today. In terms of code status, with the pt's HCS in the room, and the nurses, she completed the living will. She will remain full code, but if things are not going well or if she needs, a peg or trach and they could not wean pt off life support, she would be okay with stopping life support and transition to comfort measures only. She does not wand ".. such procedures would serve only to prolong artificially the process of dying, and that I be permitted to naturally.." as listed in her living will. She also stated in her living will she does not want her son Kelvin Soria or Gregorio Soria to be involved in her health care decision making. This completion of Living Will was witness by nurse/staff Katheryn Owen, and Anton Parnell. Living Will copies given to pt and HCS. Copy is in the chart and will be scanned into [facility] Records. == symptoms- some dyspnea today, resolved with dialysis. Denied pain on my visit. == Palliative Care will continue to monitor as pt's condition continue to evolve. Attestation To help prompt me to consider important information that might be impacting today's encounter and assessment, information from prior notes written by myself or my colleagues may have been "brought forward" into today's note. My signature on this note, however, is an attestation that I personally performed the exam, history, and/or decision-making noted today, and, unless otherwise indicated, the interactions with patient, family, and staff as well as the review of records all occurred today. I also attest that the listed assessment and stated plan reflect my best clinical judgment today based on the combination of historical information, prior notes, and today's exam/ interactions. When time spent is documented, it refers only to time spent today by the signer, or if indicated, combined time spent today by collaborating physician/nurse practitioner. Joe Arregaa MD Nov 28, 2016 14:31
--- NOTE | 2016-11-28 15:53 | HHI.NPPN ---
Subjective History of Present Illness This patient is a 76-year-old female. Patient is a poor historian and history primarily obtained from the records. According to the records I reviewed the patient has a history of diabetes mellitus, hypertension as well as HIV. Infectious disease is currently in consultation as well as critical care. The patient was admitted to this institution on November 19, 2016 after being found "down" in her apartment. On presentation to the hospital she was noted to have a blood sugar of 957 with a creatinine of 2.68 and initially a sodium of 133 as well as a total CO2 on BMP of 10.6. Beta hydroxybutyrate was elevated. Patient has been treated for DKA and serum sodium level as expected has increased as a glucose level has dropped. Creatinine level is slightly improved today at 2.56. There is also evidence of rhabdomyolysis on presentation with significantly elevated CK level and a urinalysis positive for large amount of blood but minimal rbc. Of interest patient was taking Crestor as an outpatient. Interval History Patient indicated to me that her shortness of breath has improved significantly after dialysis today. Review of Systems General Constitutional: Fatigue Respiratory Lungs: SOB Gastrointestinal GI Remarks Nausea, anorexia Objective Data Data 11/27/16 11/28/16 19:00 07:00 Intake Total 400 ml 240 ml Balance 400 ml 240 ml Intake Oral 400 ml 240 ml IV Total 0 ml # Voids 2 0 # Bowel Movements 0 1 Vital Signs Date Time Temp Pulse Resp B/P Pulse Ox O2 Delivery O2 Flow Rate FiO2 11/28/16 15:17 94 Nasal Cannula 2.00 11/28/16 13:30 16 11/28/16 08:00 96.6 82 18 148/85 94 11/28/16 04:00 97.4 76 20 139/61 92 11/28/16 00:00 97.5 89 18 133/60 93 11/27/16 21:32 94 Nasal Cannula 2.00 11/27/16 20:00 97.8 88 20 147/63 92 11/27/16 20:00 89 11/27/16 16:00 97.2 99 17 172/87 93 -: 11/27/16 0419 11/28/16 0437 Physical Exam General Appearance: Pale, Malnourished Appearance Remarks Appears to be mildly dyspneic. Pulmonary Resp Exam: Breath Sounds Equal, No Distress, Crackles (coarse crackles in the bases bilaterally) Cardiology CV Exam: Regular, Normal Sinus Rhythm Gastrointestinal/Abdomen GI Exam: Soft, Non-Tender Integumentary Skin Exam: Clear, Warm Extremeties Extremities Exam: Moderate Edema (no edema seen in the legs however there was 2 + pitting edema involving the hips and lower torso and sacrum.), Pitting Edema, Dependent Edema Neurologic Neuro Exam: Alert, Awake, Speech Clear, Moving All Extremities Assessment/Plan Discussed Condition With: Patient Problem List: (1) PRATIMA (acute kidney injury) Plan: Chest x-ray did indicate the presence of pulmonary edema yesterday and the patient's shortness of breath has improved with dialysis. She still has some clinical evidence of fluid retention with edema. Plan for dialysis again tomorrow with probable rest on Thursday and reevaluation on Thursday. This was discussed with her. Status of renal function reviewed also with her. Add by mouth diuretic. Request I and O's. Repeat dialysis tomorrow for further fluid removal. Medications should be adjusted for the patient's estimated GFR if clinically indicated. Avoid agents with significant potential for nephrotoxicity possible including NSAIDs for analgesia, iodine contrast agents. Gadolinium is contraindicated if the GFR is below 30. (2) Rhabdomyolysis Plan: Improved. Most likely was secondary to compression injury while patient was on the floor. Patient was on a statin drug i.e. Crestor so uncertain to what degree this may have played a role also. (3) CKD (chronic kidney disease) stage 3, GFR 30-59 ml/min Plan: Secondary to nephrosclerosis of hypertension and aging. (4) Vitamin D deficiency Plan: Vitamin D supplementation as ordered. Problem Qualifiers (1) Rhabdomyolysis: Qualified Code: M62.82 - Non-traumatic rhabdomyolysis Mario Valdes MD Nov 28, 2016 15:53
[2016-11-28] MEDS: FUROSEMIDE 20 MG TAB PO SCH (17:22)
[2016-11-28] MEDS: MIRTAZAPINE 15 MG TAB PO SCH (20:31)
[2016-11-28] MEDS: DONEPEZIL HCL 5 MG TAB PO SCH (20:31)
[2016-11-28] MEDS: RESP: ALBUTEROL 2.5 MG/3 ML NEB (PRN) INH (22:08)
[2016-11-29] VITALS (8 sets, daily range): BP systolic 105–126; BP diastolic 56–75; PULSE 74–104; RESP 16–20; TEMP 95.6–97.3; O2SAT 90–95
[2016-11-29] MEDS: MEDIUM DOSE INSULIN NOVOLOG SUPPLEMENTAL SCALE SQ SCH ×5 (04:00→20:00)
[2016-11-29] MEDS: RESP: ALBUTEROL 2.5 MG/IPRATROPIUM 0.5 MG NEB (SCH) NEB ×2 (07:34→19:37)
[2016-11-29] MEDS: ASPIRIN 81 MG CHEW TAB CHEW SCH (09:00)
[2016-11-29] MEDS: INSULIN DETEMIR 100 UNITS/ML VIAL SQ SCH ×2 (09:00→20:13)
[2016-11-29] MEDS: MUPIROCIN 2% OINT 22 GM TUBE TOPICAL SCH ×2 (09:00→20:15)
[2016-11-29] MEDS: METOPROLOL TARTRATE 25 MG TAB PO SCH ×2 (09:00→20:14)
[2016-11-29] MEDS: NYSTATIN 100,000 UNIT/GM CREAM 15 GM TOPICAL SCH ×2 (09:00→20:15)
[2016-11-29] MEDS: HEPARIN SODIUM - IV 10,000 UNITS/10 ML VIAL PRN (11:31)
[2016-11-29] MEDS: ALBUMIN HUMAN 25% 25 GM/100 ML BAGP IV PRN (11:32)
[2016-11-29] MEDS: SODIUM CHLOR 0.9% 1000 ML INJ 1,000 ML IV PRN (11:32)
[2016-11-29] MEDS: GENTAMICIN SULFATE (DIALYSIS USE ONLY) 20 MG/2 ML VIAL IV PRN (11:32)
[2016-11-29] MEDS: AZITHROMYCIN 250 MG TAB PO SCH (12:05)
[2016-11-29] MEDS: PANTOPRAZOLE SODIUM 40 MG VIAL IV SCH (12:05)
[2016-11-29] MEDS: CHOLECALCIFEROL (VIT D3) 1000 UNIT TAB PO SCH (12:06)
[2016-11-29] MEDS: FUROSEMIDE 20 MG TAB PO SCH ×2 (12:06→20:14)
[2016-11-29] MEDS: CLOPIDOGREL 75 MG TAB PO SCH (12:07)
[2016-11-29] MEDS: FLUCONAZOLE 100 MG TAB PO SCH (12:07)
[2016-11-29] MEDS: APIXABAN 2.5 MG TABLET PO SCH ×2 (12:07→20:14)
[2016-11-29] MEDS: predniSONE 20 MG TAB PO SCH (12:07)
--- NOTE | 2016-11-29 12:51 | PD.CARD.PN ---
Subjective Subjective Remarks The patient states that she had an episode of chest pain two days ago that felt like an elephant sitting on her chest that resolved spontaneously. She complains of recurrent SOB that improves with breathing treatments. She recently returned from dialysis. She is not currently on tele. She is making urine. (Mallory Holley) Objective Vital Signs / I&O Vital Signs Date Time Temp Pulse Resp B/P Pulse Ox O2 Delivery O2 Flow Rate FiO2 11/29/16 07:35 95 Nasal Cannula 2.00 11/29/16 04:00 96.5 74 20 119/75 94 11/29/16 00:00 96.5 79 20 121/65 94 11/28/16 22:11 92 Nasal Cannula 2.00 11/28/16 21:30 69 11/28/16 20:00 97.4 80 20 113/54 93 11/28/16 19:24 94 Nasal Cannula 2.00 11/28/16 15:17 94 Nasal Cannula 2.00 11/28/16 13:30 16 I/O 11/28/16 11/28/16 11/28/16 11/29/16 11/29/16 11/29/16 07:00 15:00 23:00 07:00 15:00 23:00 Intake Total 240 ml 240 ml 240 ml 120 ml Output Total 600 ml 3000 ml 300 ml 2000 ml Balance 240 ml -360 ml -2760 ml -180 ml -2000 ml Intake Oral 240 ml 240 ml 240 ml 120 ml IV Total 0 ml 0 ml 0 ml Output Urine Total 600 ml 300 ml Hemodialysis 3000 ml 2000 ml # Voids 0 1 # Bowel Movements 1 0 1 Physical Exam GENERAL: Elderly female, awake and oriented. SKIN: Warm and dry. ecchymosis both arms HEAD: Normocephalic. EYES: No scleral icterus. No injection or drainage. NECK: Supple, trachea midline. Right IJ vasc cath CARDIOVASCULAR: Regular rate and rhythm without murmurs, gallops, or rubs. RESPIRATORY: Breath sounds equal bilaterally. Bibasilar rales, nasal cannula GASTROINTESTINAL: Abdomen soft, non-tender, nondistended. MUSCULOSKELETAL: No cyanosis, or edema. BACK: Nontender without obvious deformity. Laboratory Laboratory Tests Test 11/27/16 11/28/16 04:19 04:37 Red Blood Count 3.10 MIL/MM3 (4.00-5.30) Hemoglobin 8.4 GM/DL (11.6-15.3) Hematocrit 25.2 % (35.0-46.0) Platelet Count 129 TH/MM3 (150-450) Neutrophils (%) (Auto) 75.2 % (16.0-70.0) Monocytes (%) (Auto) 10.2 % (0.0-8.0) Lymphocytes # (Auto) 0.5 TH/MM3 (1.0-4.8) Blood Urea Nitrogen 30 MG/DL (7-18) 39 MG/DL (7-18) Creatinine 3.53 MG/DL 4.30 MG/DL (0.50-1.00) (0.50-1.00) Estimat Glomerular Filtration 13 ML/MIN (>89) 10 ML/MIN (>89) Rate Random Glucose 46 MG/DL 149 MG/DL (74-106) (74-106) Calcium Level 8.0 MG/DL 7.6 MG/DL (8.5-10.1) (8.5-10.1) Total Iron Binding Capacity 169 MCG/DL (250-450) B-Type Natriuretic Peptide 1409 PG/ML (0-100) Imaging Last 72 hours Impressions Chest X-Ray 11/27/16 0000 Signed Impressions: Service Date/Time: November 18:11 - CONCLUSION: Volume overload and slight worsening of pulmonary edema. Alton Jimenez MD (Mallory Holley) Assessment and Plan Assessment and Plan ASSESSMENT Elevated troponin and T-wave flattening in an elderly female with known history of ASHD with last negative cardiac PET 2014. Recurrent episode of chest tightness on admission. AMS/unconscious, found down. Work up reveals leukocytosis, lactic acidosis, DKA and rhabdomyolysis. Etiology of cause is not completely clear. ICD interrogation negative for acute arrhythmias Acute on chronic CKD due to above. On dialysis Atrial fibrillation with RVR since admission. Eliquis resumed. Hx atrial flutter s/p ablation 10/2016 ECHO EF 45-50%, Mild to mod MR and TR Hx SVT s/p ICD. HTN HLD Mild to moderate carotid stenosis PLAN Continue BB, diuretics, Eliquis, Plavix. Stop ASA Continue dialysis with negative fluid balance. Nitro PRN for chest pain. Will recheck EKG. Will complete ischemic workup outpatient. Assessment and plan discussed with Dr Ashley (Mallory Holley) Assessment and Plan Overall doing better no cp today. (Carter Ashley MD) Mallory Holley Nov 29, 2016 12:51 Carter Ashley MD Nov 29, 2016 14:03
--- NOTE | 2016-11-29 13:41 | HHI.FPPN ---
Subjective Remarks Patient receiving dialysis. She reports her breathing is much better. She has decreased appetite and feels sleepy today. Pain is well controlled. Pain on the back is gone. She reports no complications with dialysis. Overall feels better. (Chato Culp MD R2) Objective Vitals Vital Signs Date Time Temp Pulse Resp B/P Pulse Ox O2 Delivery O2 Flow Rate FiO2 11/29/16 12:00 95.6 89 18 105/73 90 11/29/16 07:35 95 Nasal Cannula 2.00 11/29/16 04:00 96.5 74 20 119/75 94 11/29/16 00:00 96.5 79 20 121/65 94 11/28/16 22:11 92 Nasal Cannula 2.00 11/28/16 21:30 69 11/28/16 20:00 97.4 80 20 113/54 93 11/28/16 19:24 94 Nasal Cannula 2.00 11/28/16 15:17 94 Nasal Cannula 2.00 I/O 11/28/16 11/28/16 11/28/16 11/29/16 11/29/16 11/29/16 07:00 15:00 23:00 07:00 15:00 23:00 Intake Total 240 ml 240 ml 240 ml 120 ml Output Total 600 ml 3000 ml 300 ml 2000 ml Balance 240 ml -360 ml -2760 ml -180 ml -2000 ml Intake Oral 240 ml 240 ml 240 ml 120 ml IV Total 0 ml 0 ml 0 ml Output Urine Total 600 ml 300 ml Hemodialysis 3000 ml 2000 ml # Voids 0 1 # Bowel Movements 1 0 1 (Chato Culp MD R2) Result Diagram: 11/27/16 0419 11/28/16 0437 Imaging Last 72 hours Impressions Chest X-Ray 11/27/16 0000 Signed Impressions: Service Date/Time: November 18:11 - CONCLUSION: Volume overload and slight worsening of pulmonary edema. Alton Jimenez MD Objective Remarks GENERAL: Receiving dialysis, no distress SKIN: Mild pallor. No rashes. Large ecchymosis covering left forearm and distal 1/3 of left upper arm on posteromedial side. Ecchymosis of right mid-arm, left hip. These are resolving from prior exams. Cool and dry. Stage 2 sacral decubitus ulcer right buttock near midline. Stage 1 pressure ulcer right upper back, b/l heels. CARDIOVASCULAR: NRRR. Normal S1/S2. No MRG RESPIRATORY: Lungs CTAB. No crackles or wheezes. GASTROINTESTINAL: Abdomen soft, non-distended, and non-distended. MUSCULOSKELETAL: Small superficial abrasion on dorsal aspect of middle finger. Slightly erythematous but evidence of cellulitis or abscess. Full ROM. NEUROLOGICAL: Awake and alert. Moves all extremities without difficulty. Normal speech. Oriented today. (Chato Culp MD R2) A/P Assessment and Plan 76 year old female with PMH of DM, AFib, COPD, CKD initially presented with DKA , rhabdomyolysis, and sepsis, now with resolved DKA, resolving rhabdomyolysis, but now with developing PRATIMA possibly due to ATN and requiring hemodialysis. Breathing much improved. Discharge Planning Will need rehabilitation/SNF placement on discharge. Palliative care is involved. She wants aggressive care for the time being. d/w Dr. Talamantes (Chato Culp MD R2) Attending Attestation Patient seen and examined, discussed with resident team. I agree with assessment and management as documented and discussed with me. Pt reports her breathing is much improved. She is seen in dialysis, and is feeling sleepy today. Contineu current regimen. No significant changes to her plan today. (Esperanza Talamantes MD) Problem List: (1) Acute on chronic kidney failure Status: Acute Plan: Likely multifactorial etiology, including rhabdomyolysis, ATN, cardiogenic. Creatinine reached a peak of 6.19 with BUN of 82, with decreasing urinary output and increasing potassium level, and decision was made to initial hemodialysis. - Nephrology on board - Hemodialysis per nephrology recs - Monitor I&O's, urine output - Avoid nephrotoxic agents - Renally dose medications - Monitor electrolytes - Monitor kidney function (2) Chronic obstructive lung disease Status: Acute Plan: Lungs now clear to auscultation. Sx could have been due to COPD exacerbation versus cardiac wheezing from CHF/pulmonary fluid overload. Lasix also seems to help. - DuoNeb treatments q4hrs - Continue prednisone 40 mg daily on day 3 - Continue Azithromycin 500 mg PO on day 3 - Continue incentive spirometer, EZ Pap (3) CHF, chronic Status: Chronic Plan: History of congestive heart failure, with possible acute exacerbation with fluid overload, mild basilar crackles. SOB now resolving. - Follow clinically, additional Lasix/Bumex if indicated - Continue Lopressor from home - Monitor fluid status, daily I's and O's and weights (4) Atrial fibrillation Status: Chronic Plan: Rate controlled. Has ICD in place. - Cardiology on board - Resumed Eliquis - Continue aspirin and Plavix (5) Coronary artery disease Status: Chronic Plan: Presented with elevated troponin and T-wave flattening and has a history of coronary artery disease. Had negative cardiac PET in 2015. No chest pain currently. - Cardiology on board. - Continue aspirin and Plavix. - Continue beta dex. - Stress test in the future (6) Pressure ulcer Status: Acute Plan: See physical exam; several lesions noted on presentation to ICU. Do not appear acutely infected. - Wound care nurse consulted, appreciate recommendations - Topical ointments to promote healing - Air mattress - Rotate patient every 2 hours - Monitor clinically (7) Depressed Status: Acute Plan: Significant depression with recent loss of family members. Also with significant weight loss. Symptoms seem to be improving, but she is upset about her current health status. Appetite has improved and she is eating well. - Remeron 15 mg HS for depression and appetite stimulation (8) FEN/PPX Status: Acute Plan: Fluids: With dialysis. Monitor fluid status routinely. Electrolytes: Monitor Nutrition: Renal diet, mechanical soft consistency per speech therapy DVT: Resumed home Eliquis (Chato Culp MD R2) Problem Qualifiers (1) Atrial fibrillation: Qualified Code: I48.2 - Chronic atrial fibrillation (2) Coronary artery disease: Qualified Code: I25.118 - Coronary artery disease of [place] artery of [place] heart with stable angina pectoris Chato Culp MD R2 Nov 29, 2016 13:41 Esperanza Talamantes MD Nov 29, 2016 19:34
[2016-11-29 17:19] LABS: HEMATOCRIT 23.5 % (35.0-46.0); MEAN CORPUSCULAR HGB CONC 34.2 % (32.0-36.0); PLATELET COUNT 108 TH/MM3 (150-450); RED BLOOD COUNT 2.86 MIL/MM3 (4.00-5.30); RED CELL DISTRIBUTION WIDTH 14.9 % (11.6-17.2); REVIEW FLAG FINAL; WHITE BLOOD COUNT 2.9 TH/MM3 (4.0-11.0)
--- NOTE | 2016-11-29 17:37 | HHI.NPPN ---
Subjective History of Present Illness This patient is a 76-year-old female. Patient is a poor historian and history primarily obtained from the records. According to the records I reviewed the patient has a history of diabetes mellitus, hypertension as well as HIV. Infectious disease is currently in consultation as well as critical care. The patient was admitted to this institution on November 19, 2016 after being found "down" in her apartment. On presentation to the hospital she was noted to have a blood sugar of 957 with a creatinine of 2.68 and initially a sodium of 133 as well as a total CO2 on BMP of 10.6. Beta hydroxybutyrate was elevated. Patient has been treated for DKA and serum sodium level as expected has increased as a glucose level has dropped. Creatinine level is slightly improved today at 2.56. There is also evidence of rhabdomyolysis on presentation with significantly elevated CK level and a urinalysis positive for large amount of blood but minimal rbc. Of interest patient was taking Crestor as an outpatient. Interval History Patient seen postdialysis today. Complaining of fatigue posttreatment which can be expected. Review of Systems General Constitutional: Fatigue Respiratory Lungs: SOB Gastrointestinal GI Remarks Nausea, anorexia Objective Data Data 11/28/16 11/29/16 19:00 07:00 Intake Total 240 ml 360 ml Output Total 3600 ml 300 ml Balance -3360 ml 60 ml Intake Oral 240 ml 360 ml IV Total 0 ml Output Urine Total 600 ml 300 ml Hemodialysis 3000 ml # Voids 1 # Bowel Movements 0 1 Vital Signs Date Time Temp Pulse Resp B/P Pulse Ox O2 Delivery O2 Flow Rate FiO2 11/29/16 16:00 96.8 89 20 116/56 91 11/29/16 12:00 95.6 89 18 105/73 90 11/29/16 07:35 95 Nasal Cannula 2.00 11/29/16 04:00 96.5 74 20 119/75 94 11/29/16 00:00 96.5 79 20 121/65 94 11/28/16 22:11 92 Nasal Cannula 2.00 11/28/16 21:30 69 11/28/16 20:00 97.4 80 20 113/54 93 11/28/16 19:24 94 Nasal Cannula 2.00 -: 11/29/16 1553 11/28/16 0437 Physical Exam General Appearance: Pale, Malnourished Appearance Remarks Appears to be mildly dyspneic. Pulmonary Resp Exam: Breath Sounds Equal, No Distress, Crackles (coarse crackles in the bases bilaterally) Cardiology CV Exam: Regular, Normal Sinus Rhythm Gastrointestinal/Abdomen GI Exam: Soft, Non-Tender Integumentary Skin Exam: Clear, Warm Extremeties Extremities Exam: Moderate Edema (Limited to the hips.), Pitting Edema, Dependent Edema Neurologic Neuro Exam: Alert, Awake, Speech Clear, Moving All Extremities Psychiatric Psych Exam: Appropriate Responses Assessment/Plan Discussed Condition With: Patient Problem List: (1) PRATIMA (acute kidney injury) Plan: Completed treatment today with additional fluid order. Unless otherwise ordered will be evaluated Thursday to determine if additional dialysis indicated. Potential for renal recovery in the setting of acute kidney disease as discussed with her but this remains to be determined. If no improvement in renal function by early next week will consider changing Vas-Cath to a PermCath for outpatient dialysis. Medications should be adjusted for the patient's estimated GFR if clinically indicated. Avoid agents with significant potential for nephrotoxicity possible including NSAIDs for analgesia, iodine contrast agents. Gadolinium is contraindicated if the GFR is below 30. (2) Rhabdomyolysis Plan: Improved. Most likely was secondary to compression injury while patient was on the floor. Patient was on a statin drug i.e. Crestor so uncertain to what degree this may have played a role also. (3) CKD (chronic kidney disease) stage 3, GFR 30-59 ml/min Plan: Secondary to nephrosclerosis of hypertension and aging. (4) Vitamin D deficiency Plan: Vitamin D supplementation as ordered. (5) Congestive heart failure Plan: Continue by mouth furosemide and dialysis as indicated for fluid removal. Problem Qualifiers (1) Rhabdomyolysis: Qualified Code: M62.82 - Non-traumatic rhabdomyolysis Mario Valdes MD Nov 29, 2016 17:37
[2016-11-29 17:42] LABS: BICARBONATE 29.3 MEQ/L (21.0-32.0); POTASSIUM 3.9 MEQ/L (3.5-5.1)
[2016-11-29] MEDS: DONEPEZIL HCL 5 MG TAB PO SCH (20:14)
[2016-11-29] MEDS: MIRTAZAPINE 15 MG TAB PO SCH (20:15)
[2016-11-30] VITALS: BP 130/74; PULSE 85; RESP 18; TEMP 98; O2SAT 97
[2016-11-30] MEDS: RESP: ALBUTEROL 2.5 MG/3 ML NEB (PRN) INH ×2 (00:02→19:31)
[2016-11-30] MEDS: CHLORHEXIDINE GLUCONATE 2 % 1 PACK (2 CLOTHS) TOP SCH (00:09)
[2016-11-30 04:00] VITALS: BP 120/58; PULSE 91; RESP 18; TEMP 96.9; O2SAT 97
[2016-11-30] MEDS: MEDIUM DOSE INSULIN NOVOLOG SUPPLEMENTAL SCALE SQ SCH ×6 (04:00→20:00)
[2016-11-30 05:12] LABS: HEMATOCRIT 24.6 % (35.0-46.0); MEAN CELL VOLUME 82.7 FL (80.0-100.0); MEAN CORPUSCULAR HEMOGLOBIN 27.1 PG (27.0-34.0); MEAN CORPUSCULAR HGB CONC 32.8 % (32.0-36.0); PLATELET COUNT 140 TH/MM3 (150-450); RED BLOOD COUNT 2.97 MIL/MM3 (4.00-5.30); RED CELL DISTRIBUTION WIDTH 14.6 % (11.6-17.2); REVIEW FLAG FINAL; WHITE BLOOD COUNT 6.9 TH/MM3 (4.0-11.0)
[2016-11-30 05:33] LABS: BICARBONATE 29.6 MEQ/L (21.0-32.0); POTASSIUM 4.1 MEQ/L (3.5-5.1)
[2016-11-30] MEDS: CHOLECALCIFEROL (VIT D3) 1000 UNIT TAB PO SCH (07:49)
[2016-11-30] MEDS: predniSONE 20 MG TAB PO SCH (07:49)
[2016-11-30] MEDS: VITAMIN B CMPLX/VITC/FOLIC AC CAP PO SCH (07:49)
[2016-11-30] MEDS: FUROSEMIDE 20 MG TAB PO SCH ×2 (07:49→20:35)
[2016-11-30] MEDS: PANTOPRAZOLE SODIUM 40 MG VIAL IV SCH (07:50)
[2016-11-30] MEDS: METOPROLOL TARTRATE 25 MG TAB PO SCH ×2 (07:50→20:35)
[2016-11-30] MEDS: FLUCONAZOLE 100 MG TAB PO SCH (07:50)
[2016-11-30] MEDS: APIXABAN 2.5 MG TABLET PO SCH ×2 (07:50→20:35)
[2016-11-30] MEDS: CLOPIDOGREL 75 MG TAB PO SCH (07:50)
[2016-11-30] MEDS: INSULIN DETEMIR 100 UNITS/ML VIAL SQ SCH ×2 (07:52→20:37)
[2016-11-30] MEDS: NYSTATIN 100,000 UNIT/GM CREAM 15 GM TOPICAL SCH ×2 (07:57→20:48)
[2016-11-30] MEDS: MUPIROCIN 2% OINT 22 GM TUBE TOPICAL SCH ×2 (07:57→20:47)
[2016-11-30] MEDS: RESP: ALBUTEROL 2.5 MG/IPRATROPIUM 0.5 MG NEB (SCH) NEB (08:00)
[2016-11-30 08:12] VITALS: O2SAT 87
--- NOTE | 2016-11-30 10:37 | EKG ---
Date Performed: 11/29/2016 Time Performed: 13:44:35 PTAGE: 76 years EKG: Sinus rhythm POSSIBLE LEFT ATRIAL ENLARGEMENT INCOMPLETE RIGHT BUNDLE BRANCH BLOCK NONSPECIFIC ST & T-WAVE ABNORM ALITY BORDERLINE ECG Compared to prior tracing no significant change PREVIOUS TRACING : 11/20/2016 01.57 DOCTOR: Carter Ashley Interpretating Date/Time 11/30/2016 10:30:55
[2016-11-30] MEDS: ISOSORBIDE DINITRATE 10 MG TAB PO SCH (10:46)
--- NOTE | 2016-11-30 10:59 | HHI.FPPN ---
Subjective Remarks No acute events overnight. Occasionally notes chest discomfort/pressure mostly when she gets upset. None at rest or at time of eval. SOB intermittent with same timing as chest discomfort. Not dyspneic at rest. No abdominal pain, N/V. (Anthony Kimbrough MD R1) Objective Vitals Vital Signs Date Time Temp Pulse Resp B/P Pulse Ox O2 Delivery O2 Flow Rate FiO2 11/30/16 08:12 87 Nasal Cannula 2.00 11/30/16 04:00 96.9 91 18 120/58 97 11/30/16 00:00 98.0 85 18 130/74 97 11/29/16 22:00 96 11/29/16 20:00 97.3 104 16 126/58 94 11/29/16 19:39 95 Nasal Cannula 3.00 11/29/16 16:00 96.8 89 20 116/56 91 11/29/16 12:00 95.6 89 18 105/73 90 I/O 11/29/16 11/29/16 11/29/16 11/30/16 11/30/16 11/30/16 07:00 15:00 23:00 07:00 15:00 23:00 Intake Total 120 ml 360 ml 240 ml 240 ml Output Total 300 ml 2000 ml 450 ml Balance -180 ml -1640 ml 240 ml -210 ml Intake Oral 120 ml 360 ml 240 ml 240 ml IV Total 0 ml 0 ml 0 ml Output Urine Total 300 ml 0 ml 450 ml Hemodialysis 2000 ml # Voids 1 # Bowel Movements 1 1 (Anthony Kimbrough MD R1) Result Diagram: 11/30/16 0428 11/30/16 0428 Objective Remarks GENERAL: Lying in bed in no acute distress. SKIN: Mild pallor. No rashes. Large ecchymosis covering left forearm and distal 1/3 of left upper arm on posteromedial side. Ecchymosis of right mid-arm, left hip. These are resolving from prior exams. Cool and dry. Stage 2 sacral decubitus ulcer right buttock near midline. Stage 1 pressure ulcer right upper back, b/l heels. CARDIOVASCULAR: NRRR. Normal S1/S2. No MRG RESPIRATORY: Lungs CTAB. No crackles or wheezes. MUSCULOSKELETAL: Small superficial abrasion on dorsal aspect of middle finger. Slightly erythematous but evidence of cellulitis or abscess. Full ROM. NEUROLOGICAL: Awake and alert. Moves all extremities without difficulty. Normal speech. Oriented today. Medications and IVs Current Medications Medications (Trade) Dose Ordered Sig/Francesca Route Start Time Stop Time Status Last Admin (NS Flush) 2 ml UNSCH PRN IVF 11/19/16 17:00 11/19/16 18:58 (Sodium Bicarbonate 8.4% Inj) 100 meq UNSCH PRN IV 11/19/16 18:45 (Sodium Bicarbonate 8.4% Inj) 50 meq UNSCH PRN IV 11/19/16 18:45 (Protonix Inj) 40 mg DAILY IV 11/20/16 09:00 11/30/16 07:50 (Zofran Inj) 4 mg Q6H PRN IV 11/20/16 04:15 11/21/16 08:57 Miscellaneous Information 1 Q361D XX 11/20/16 04:15 11/20/16 04:15 (Chlorhexidine 2% Cloth) Taper DAILY@04 TOP 11/21/16 04:00 11/17/17 03:59 11/23/16 04:00 (Chlorhexidine 2% Cloth) 3 pack UNSCH PRN TOP 11/20/16 04:15 (Mycostatin Cream) 1 applic Q12HR TOPICAL 11/20/16 09:00 11/30/16 07:57 (Plavix) 75 mg DAILY PO 11/21/16 09:00 11/30/16 07:50 (D50w (Vial) Inj) 25 ml UNSCH PRN IV PUSH 11/20/16 17:00 11/29/16 05:19 (Glucagon Inj) 1 mg UNSCH PRN OTHER 11/20/16 17:00 (NovoLOG SUPPLEMENTAL SCALE) 1 Q4HR SQ 11/20/16 16:00 11/30/16 04:00 (Vitamin D3) 2,000 units DAILY PO 11/21/16 14:15 11/30/16 07:49 (Lopressor) 25 mg Q12HR PO 11/21/16 14:00 11/30/16 07:50 (Remeron) 15 mg HS PO 11/23/16 21:00 11/29/16 20:15 (Aricept) 5 mg HS PO 11/23/16 21:00 11/29/16 20:14 (Levemir Inj) 5 units Q12HR SQ 11/24/16 09:00 11/30/16 07:52 (Bactroban 2% Oint) 1 applic Q12HR TOPICAL 11/24/16 10:00 11/30/16 07:57 (Tylenol) 500 mg Q4H PRN PO 11/24/16 13:30 11/24/16 15:17 Oxycodone HCl 5 mg 5 mg Q6H PRN PO 11/24/16 13:30 11/28/16 23:38 (NS 1000 ml Inj) 1,000 ml @ 0 mls/hr Q0M PRN IV 11/25/16 11:55 11/29/16 11:32 Heparin Sodium (Porcine) 8000 units 8,000 units UNSCH PRN IVF 11/25/16 12:00 11/28/16 11:35 Sodium Chloride 1,000 ml @ 200 mls/hr Q5H PRN IV 11/25/16 11:55 (NS 1000 ml Inj) 1,000 ml @ 0 mls/hr Q0M PRN IV 11/25/16 11:55 (Mannitol Inj) 12.5 gm UNSCH PRN IV 11/25/16 12:00 (Albumin 25% Inj) 25 gm UNSCH PRN IV 11/25/16 12:00 11/29/16 11:32 (NS Flush) 5 ml UNSCH PRN IV FLUSH 11/25/16 12:00 (Heparin Inj) UNSCH PRN .XX 11/25/16 12:00 11/29/16 11:31 (Gentamicin (Dialysis) Inj) 20 mg UNSCH PRN IV 11/25/16 12:00 11/29/16 11:32 (Zofran Inj) 4 mg UNSCH PRN IV 11/25/16 12:00 (Tylenol) 650 mg UNSCH PRN PO 11/25/16 12:00 11/27/16 21:21 (Benadryl) 25 mg UNSCH PRN PO 11/25/16 12:00 (Nitrostat Sl) 0.4 mg UNSCH PRN SL 11/25/16 12:00 (Catapres) 0.1 mg UNSCH PRN PO 11/25/16 12:00 (Gelfoam 12 Mm/7 Mm Top) 1 foam UNSCH PRN TOP 11/25/16 12:00 (Diflucan) 100 mg DAILY PO 11/25/16 15:00 12/02/16 14:59 11/30/16 07:50 (Drisdol) 50,000 units Q7D PO 11/26/16 07:00 11/26/16 11:00 (Deltasone) 40 mg DAILY PO 11/27/16 15:00 11/30/16 07:49 (Eliquis) 2.5 mg BID PO 11/27/16 21:00 11/30/16 07:50 (Nephrocaps) 1 cap DAILY PO 11/30/16 09:00 11/30/16 07:49 (Lasix) 60 mg BID PO 11/29/16 21:00 11/30/16 07:49 (Isordil) 10 mg DAILY PO 11/30/16 10:00 11/30/16 10:46 (Anthony Kimbrough MD R1) A/P Assessment and Plan 76 year old female with PMH of DM, AFib, COPD, CKD initially presented with DKA , rhabdomyolysis, and sepsis, now with resolved DKA, resolving rhabdomyolysis, but now with developing PRATIMA possibly due to ATN and requiring hemodialysis. Breathing much improved. Discharge Planning Will need rehabilitation/SNF placement on discharge. Palliative care is involved. She wants aggressive care for the time being. d/w Dr. Talamantes (Anthony Kimbrough MD R1) Attending Attestation Patient seen and examined, discussed with Dr Kimbrough. I agree with assessment and management as documented and discussed with me. Pt reports intermittent SOB still despite clear lungs. Consider CAD as etiology - add nitrate to regimen to see if this improves. Consider also anxiety. Will monitor her symptoms. (Esperanza Talamantes MD) Problem List: (1) Acute on chronic kidney failure Status: Acute Plan: Likely multifactorial etiology, including rhabdomyolysis, ATN, cardiogenic. Creatinine reached a peak of 6.19 with BUN of 82, with decreasing urinary output and increasing potassium level, and decision was made to initiate hemodialysis. - Nephrology on board, appreciate assistance - To evaluate Thursday and determine whether dialysis will continue outside hospital, in which case PermCath would be placed - Hemodialysis per nephrology recs - Monitor I&O's, urine output - Avoid nephrotoxic agents - Renally dose medications - Monitor electrolytes - Monitor kidney function (2) Chronic obstructive lung disease Status: Acute Plan: Lungs now clear to auscultation. Sx could have been due to COPD exacerbation versus cardiac wheezing from CHF/pulmonary fluid overload. Lasix also seems to help. - DuoNeb treatments q4hrs - Continue prednisone 40 mg daily on day 4 - Continue Azithromycin 500 mg PO; on day 4 - Continue incentive spirometer, EZ Pap (3) CHF, chronic Status: Chronic Plan: History of congestive heart failure, with possible acute exacerbation with fluid overload, mild basilar crackles. SOB now resolving. - Follow clinically, additional Lasix/Bumex if indicated - Continue Lopressor from home - Monitor fluid status, daily I's and O's and weights (4) Atrial fibrillation Status: Chronic Plan: Rate controlled. Has ICD in place. - Cardiology on board, appreciate assistance - Resumed Eliquis - Continue aspirin and Plavix (5) Coronary artery disease Status: Chronic Plan: Presented with elevated troponin and T-wave flattening and has a history of coronary artery disease. Had negative cardiac PET in 2015. No chest pain currently. - Cardiology on board, appreciate assistance - Continue aspirin and Plavix - Continue beta edx - Added isosorbide dinitrate 10 mg PO daily to treat probable anginal symptoms - Stress test in the future (6) Pressure ulcer Status: Acute Plan: See physical exam; several lesions noted on presentation to ICU. Do not appear acutely infected. - Wound care nurse consulted, appreciate recommendations - Topical ointments to promote healing - Air mattress - Rotate patient every 2 hours - Monitor clinically (7) Depressed Status: Acute Plan: Significant depression with recent loss of family members. Also with significant weight loss. Symptoms seem to be improving, but she is upset about her current health status. Appetite has improved and she is eating well. - Remeron 15 mg HS for depression and appetite stimulation (8) FEN/PPX Status: Acute Plan: Fluids: With dialysis. Monitor fluid status routinely. Electrolytes: Monitor Nutrition: Renal diet, mechanical soft consistency per speech therapy DVT: Resumed home Eliquis (Anthony Kimbrough MD R1) Problem Qualifiers (1) Atrial fibrillation: Qualified Code: I48.2 - Chronic atrial fibrillation (2) Coronary artery disease: Qualified Code: I25.118 - Coronary artery disease of [place] artery [place] heart with stable angina pectoris Anthony Kimbrough MD R1 Nov 30, 2016 10:59 Esperanza Talamantes MD Nov 30, 2016 20:42
[2016-11-30 12:00] VITALS: BP 116/55; PULSE 77; RESP 18; TEMP 97.5; O2SAT 95
--- NOTE | 2016-11-30 15:30 | HHI.NPPN ---
Subjective History of Present Illness This patient is a 76-year-old female. Patient is a poor historian and history primarily obtained from the records. According to the records I reviewed the patient has a history of diabetes mellitus, hypertension as well as HIV. Infectious disease is currently in consultation as well as critical care. The patient was admitted to this institution on November 19, 2016 after being found "down" in her apartment. On presentation to the hospital she was noted to have a blood sugar of 957 with a creatinine of 2.68 and initially a sodium of 133 as well as a total CO2 on BMP of 10.6. Beta hydroxybutyrate was elevated. Patient has been treated for DKA and serum sodium level as expected has increased as a glucose level has dropped. Creatinine level is slightly improved today at 2.56. There is also evidence of rhabdomyolysis on presentation with significantly elevated CK level and a urinalysis positive for large amount of blood but minimal rbc. Of interest patient was taking Crestor as an outpatient. Interval History Still with some shortness of breath. Review of Systems General Constitutional: Fatigue Respiratory Lungs: SOB Gastrointestinal GI Remarks Nausea, anorexia Objective Data Data 11/29/16 11/30/16 19:00 07:00 Intake Total 360 ml 480 ml Output Total 2000 ml 450 ml Balance -1640 ml 30 ml Intake Oral 360 ml 480 ml IV Total 0 ml Output Urine Total 0 ml 450 ml Hemodialysis 2000 ml # Voids 1 # Bowel Movements 1 Vital Signs Date Time Temp Pulse Resp B/P Pulse Ox O2 Delivery O2 Flow Rate FiO2 11/30/16 12:00 97.5 77 18 116/55 95 11/30/16 08:12 87 Nasal Cannula 2.00 11/30/16 04:00 96.9 91 18 120/58 97 11/30/16 00:00 98.0 85 18 130/74 97 11/29/16 22:00 96 11/29/16 20:00 97.3 104 16 126/58 94 11/29/16 19:39 95 Nasal Cannula 3.00 11/29/16 16:00 96.8 89 20 116/56 91 -: 11/30/16 0428 11/30/16 0428 Physical Exam General Appearance: Pale, Malnourished Appearance Remarks Appears to be mildly dyspneic. Pulmonary Resp Exam: Clear Bilaterally, Breath Sounds Equal Cardiology CV Exam: Regular, Normal Sinus Rhythm Gastrointestinal/Abdomen GI Exam: Soft, Non-Tender Integumentary Skin Exam: Clear, Warm Extremeties Extremities Exam: Moderate Edema (Limited to the hips.), Pitting Edema, Dependent Edema Neurologic Neuro Exam: Alert, Awake, Speech Clear, Moving All Extremities Psychiatric Psych Exam: Appropriate Responses Assessment/Plan Discussed Condition With: Patient Problem List: (1) PRATIMA (acute kidney injury) Plan: No evidence of significant fluid overload at this time. Lungs are completely clear to auscultation. Suspect primary etiology of dyspnea at this point in time is her intrinsic lung disease i.e. COPD. Reevaluate tomorrow and determine whether or not dialysis will be required tomorrow. Potential for renal recovery in the setting of acute kidney disease as discussed with her but this remains to be determined. If no improvement in renal function by early next week will consider changing Vas-Cath to a PermCath for outpatient dialysis. Medications should be adjusted for the patient's estimated GFR if clinically indicated. Avoid agents with significant potential for nephrotoxicity possible including NSAIDs for analgesia, iodine contrast agents. Gadolinium is contraindicated if the GFR is below 30. (2) Rhabdomyolysis Plan: Improved. Most likely was secondary to compression injury while patient was on the floor. Patient was on a statin drug i.e. Crestor so uncertain to what degree this may have played a role also. (3) CKD (chronic kidney disease) stage 3, GFR 30-59 ml/min Plan: Secondary to nephrosclerosis of hypertension and aging. (4) Vitamin D deficiency Plan: Vitamin D supplementation as ordered. (5) Congestive heart failure Plan: Continue by mouth furosemide and dialysis as indicated for fluid removal. Problem Qualifiers (1) Rhabdomyolysis: Qualified Code: M62.82 - Non-traumatic rhabdomyolysis Mario Valdes MD Nov 30, 2016 15:30
[2016-11-30 19:33] VITALS: O2SAT 95
[2016-11-30 20:00] VITALS: BP 138/63; PULSE 71; PULSE 75; RESP 18; TEMP 96.9; O2SAT 97
[2016-11-30] MEDS: DONEPEZIL HCL 5 MG TAB PO SCH (20:34)
[2016-11-30] MEDS: MIRTAZAPINE 15 MG TAB PO SCH (20:34)
[2016-12-01] VITALS (7 sets, daily range): BP systolic 127–166; BP diastolic 63–94; PULSE 67–90; RESP 17–20; TEMP 96.5–98.5; O2SAT 90–98
[2016-12-01] MEDS: CHLORHEXIDINE GLUCONATE 2 % 1 PACK (2 CLOTHS) TOP SCH ×2 (03:42→19:47)
[2016-12-01] MEDS: MEDIUM DOSE INSULIN NOVOLOG SUPPLEMENTAL SCALE SQ SCH ×7 (03:43→23:59)
[2016-12-01] MEDS: RESP: ALBUTEROL 2.5 MG/3 ML NEB (PRN) INH ×4 (03:49→23:09)
[2016-12-01 05:50] LABS: BICARBONATE 30.4 MEQ/L (21.0-32.0); MAGNESIUM 1.5 MG/DL (1.5-2.5); POTASSIUM 4.4 MEQ/L (3.5-5.1)
[2016-12-01] MEDS: NYSTATIN 100,000 UNIT/GM CREAM 15 GM TOPICAL SCH ×2 (09:00→19:47)
[2016-12-01] MEDS: MUPIROCIN 2% OINT 22 GM TUBE TOPICAL SCH ×2 (09:00→19:47)
--- NOTE | 2016-12-01 09:02 | HHI.FPPN ---
Subjective Remarks No acute events overnight. Feeling well this morning. Had some SOB around 0300 on waking up, resolved with breathing treatment. No CP. No N/V. (Anthony Kimbrough MD R1) Objective Vitals Vital Signs Date Time Temp Pulse Resp B/P Pulse Ox O2 Delivery O2 Flow Rate FiO2 12/01/16 07:55 90 Nasal Cannula 2.00 12/01/16 04:00 96.5 81 19 135/94 93 12/01/16 00:00 96.6 67 17 140/90 93 11/30/16 20:00 75 11/30/16 20:00 96.9 71 18 138/63 97 11/30/16 19:33 95 Nasal Cannula 2.00 11/30/16 12:00 97.5 77 18 116/55 95 I/O 11/30/16 11/30/16 11/30/16 12/01/16 12/01/16 12/01/16 07:00 15:00 23:00 07:00 15:00 23:00 Intake Total 240 ml 85 ml 240 ml 240 ml Output Total 450 ml 0 ml 550 ml Balance -210 ml 85 ml 240 ml -310 ml Intake Oral 240 ml 85 ml 240 ml 240 ml IV Total 0 ml Output Urine Total 450 ml 0 ml 550 ml # Voids 1 # Bowel Movements 1 0 (Anthony Kimbrough MD R1) Result Diagram: 11/30/16 0428 12/01/16 0455 Imaging Last Impressions Chest X-Ray 11/27/16 0000 Signed Impressions: Service Date/Time: November 18:11 - CONCLUSION: Volume overload and slight worsening of pulmonary edema. Alton Jimenez MD Catheter Placement X-Ray 11/25/16 0000 Signed Impressions: Service Date/Time: Friday, November 25, 2016 00:00 - CONCLUSION: Uncomplicated line placement as above. Postprocedural chest radiograph will be obtained to confirm position. Chad Nelson MD Abdomen Ultrasound 11/21/16 0000 Signed Impressions: Service Date/Time: Monday, November 21, 2016 16:04 - CONCLUSION: 1. Dilated common bile duct measuring 11 mm. Correlation with alkaline phosphatase and bilirubin level is suggested to rule out biliary obstruction. 2. Thick-walled stone-containing gallbladder with minimal pericholecystic fluid. If there is clinical concern for acute cholecystitis a hepatobiliary scan may be helpful to confirm cystic duct obstruction. 3. Mild hepatomegaly. 4. Small right pleural effusion. 5. Trace ascites. 6. Poor visualization of the pancreas, abdominal aorta and inferior vena cava secondary to shadowing bowel gas. Joey Rosenthal MD Pelvis X-Ray 11/19/16 0000 Signed Impressions: Service Date/Time: Saturday, November 19, 2016 18:23 - CONCLUSION: 1. Moderate degenerative changes involving the hip joints bilaterally. 2. Degenerative changes involving the lower lumbar spine. 3. No acute fracture or dislocation. Joey Rosenthal MD Head CT 11/19/16 0000 Signed Impressions: Service Date/Time: Saturday, November 19, 2016 17:54 - CONCLUSION: No acute disease. Joey Rosenthal MD Cervical Spine CT 11/19/16 0000 Signed Impressions: Service Date/Time: Saturday, November 19, 2016 17:54 - CONCLUSION: 1. Extensive motion artifact particularly at C3 and C4 levels which limits interpretation of these levels. 2. Grade I retrolisthesis of C3 in relation to C4 and C2 as well as C4 in relation to C5. 3. Diffuse cervical spondylosis at C5-C6, C6- C7 and to a lesser extent at C4-C5 and C3-C4. 4. No acute fracture or prevertebral soft-tissue swelling. 5. Mild spinal stenosis at C5-C6. 6. Mild bilateral foraminal narrowing at C5-C6 and C6-C7 and to a lesser extent at C4- C5 and C3-C4. 7. Reversal of the normal cervical lordosis. Joey Rosenthal MD Objective Remarks GENERAL: Sitting up in chair, comfortable, NAD SKIN: Mild pallor. No rashes. Large ecchymosis covering left forearm and distal 1/3 of left upper arm on posteromedial side. Ecchymosis of right mid-arm, left hip. These are resolving from prior exams. Cool and dry. Stage 2 sacral decubitus ulcer right buttock near midline. Stage 1 pressure ulcer right upper back, b/l heels. CARDIOVASCULAR: NRRR. Normal S1/S2. No MRG RESPIRATORY: Mild crackles b/l at the lung bases MUSCULOSKELETAL: Small superficial abrasion on dorsal aspect of middle finger. Slightly erythematous but evidence of cellulitis or abscess. Full ROM. 1+ edema of BLE to just above ankles (sitting up with legs dependent). NEUROLOGICAL: Awake and alert. Moves all extremities without difficulty. Normal speech. Medications and IVs Current Medications Medications (Trade) Dose Ordered Sig/Francesca Route Start Time Stop Time Status Last Admin (NS Flush) 2 ml UNSCH PRN IVF 11/19/16 17:00 11/19/16 18:58 (Sodium Bicarbonate 8.4% Inj) 100 meq UNSCH PRN IV 11/19/16 18:45 (Sodium Bicarbonate 8.4% Inj) 50 meq UNSCH PRN IV 11/19/16 18:45 (Protonix Inj) 40 mg DAILY IV 11/20/16 09:00 11/30/16 07:50 (Zofran Inj) 4 mg Q6H PRN IV 11/20/16 04:15 11/21/16 08:57 Miscellaneous Information 1 Q361D XX 11/20/16 04:15 11/20/16 04:15 (Chlorhexidine 2% Cloth) Taper DAILY@04 TOP 11/21/16 04:00 11/17/17 03:59 11/23/16 04:00 (Chlorhexidine 2% Cloth) 3 pack UNSCH PRN TOP 11/20/16 04:15 (Mycostatin Cream) 1 applic Q12HR TOPICAL 11/20/16 09:00 11/30/16 20:48 (Plavix) 75 mg DAILY PO 11/21/16 09:00 11/30/16 07:50 (D50w (Vial) Inj) 25 ml UNSCH PRN IV PUSH 11/20/16 17:00 11/29/16 05:19 (Glucagon Inj) 1 mg UNSCH PRN OTHER 11/20/16 17:00 (NovoLOG SUPPLEMENTAL SCALE) 1 Q4HR SQ 11/20/16 16:00 11/30/16 20:00 (Vitamin D3) 2,000 units DAILY PO 11/21/16 14:15 11/30/16 07:49 (Lopressor) 25 mg Q12HR PO 11/21/16 14:00 11/30/16 20:35 (Remeron) 15 mg HS PO 11/23/16 21:00 11/30/16 20:34 (Aricept) 5 mg HS PO 11/23/16 21:00 11/30/16 20:34 (Levemir Inj) 5 units Q12HR SQ 11/24/16 09:00 11/30/16 20:37 (Bactroban 2% Oint) 1 applic Q12HR TOPICAL 11/24/16 10:00 11/30/16 20:47 (Tylenol) 500 mg Q4H PRN PO 11/24/16 13:30 11/24/16 15:17 Oxycodone HCl 5 mg 5 mg Q6H PRN PO 11/24/16 13:30 11/28/16 23:38 (NS 1000 ml Inj) 1,000 ml @ 0 mls/hr Q0M PRN IV 11/25/16 11:55 11/29/16 11:32 Heparin Sodium (Porcine) 8000 units 8,000 units UNSCH PRN IVF 11/25/16 12:00 11/28/16 11:35 Sodium Chloride 1,000 ml @ 200 mls/hr Q5H PRN IV 11/25/16 11:55 (NS 1000 ml Inj) 1,000 ml @ 0 mls/hr Q0M PRN IV 11/25/16 11:55 (Mannitol Inj) 12.5 gm UNSCH PRN IV 11/25/16 12:00 (Albumin 25% Inj) 25 gm UNSCH PRN IV 11/25/16 12:00 11/29/16 11:32 (NS Flush) 5 ml UNSCH PRN IV FLUSH 11/25/16 12:00 (Heparin Inj) UNSCH PRN .XX 11/25/16 12:00 11/29/16 11:31 (Gentamicin (Dialysis) Inj) 20 mg UNSCH PRN IV 11/25/16 12:00 11/29/16 11:32 (Zofran Inj) 4 mg UNSCH PRN IV 11/25/16 12:00 (Tylenol) 650 mg UNSCH PRN PO 11/25/16 12:00 11/27/16 21:21 (Benadryl) 25 mg UNSCH PRN PO 11/25/16 12:00 (Nitrostat Sl) 0.4 mg UNSCH PRN SL 11/25/16 12:00 (Catapres) 0.1 mg UNSCH PRN PO 11/25/16 12:00 (Gelfoam 12 Mm/7 Mm Top) 1 foam UNSCH PRN TOP 11/25/16 12:00 (Diflucan) 100 mg DAILY PO 11/25/16 15:00 12/02/16 14:59 11/30/16 07:50 (Drisdol) 50,000 units Q7D PO 11/26/16 07:00 11/26/16 11:00 (Deltasone) 40 mg DAILY PO 11/27/16 15:00 11/30/16 07:49 (Eliquis) 2.5 mg BID PO 11/27/16 21:00 11/30/16 20:35 (Nephrocaps) 1 cap DAILY PO 11/30/16 09:00 11/30/16 07:49 (Lasix) 60 mg BID PO 11/29/16 21:00 11/30/16 20:35 (Isordil) 10 mg DAILY PO 11/30/16 10:00 11/30/16 10:46 (Anthony Kimbrough MD R1) A/P Assessment and Plan 76 year old female with PMH of DM, AFib, COPD, CKD initially presented with DKA , rhabdomyolysis, and sepsis, now with resolved DKA, resolving rhabdomyolysis, but now with developing PRATIMA possibly due to ATN and requiring hemodialysis. Breathing much improved. Discharge Planning Will need rehabilitation/SNF placement on discharge. Palliative care is involved. She wants aggressive care for the time being. (Anthony Kimbrough MD R1) Attending Attestation Patient seen and examined, discussed with resident team. I agree with assessment and management as documented and discussed with me. PT reports some increased SOB early this AM, improved after nebulizer treatment. Crackles noted today at bases. Await nephrology decision re: dialysis / catheter placement. (Esperanza Talamantes MD) Problem List: (1) Acute on chronic kidney failure Status: Acute Plan: Likely multifactorial etiology, including rhabdomyolysis, ATN, cardiogenic. Creatinine reached a peak of 6.19 with BUN of 82, with decreasing urinary output and increasing potassium level, and decision was made to initiate hemodialysis. - Nephrology on board, appreciate assistance - To evaluate Thursday and determine whether dialysis will continue outside hospital, in which case PermCath would be placed - Hemodialysis per nephrology recs - Monitor I&O's, urine output - Avoid nephrotoxic agents - Renally dose medications - Monitor electrolytes - Monitor kidney function (2) Chronic obstructive lung disease Status: Acute Plan: Lungs now clear to auscultation. Sx could have been due to COPD exacerbation versus cardiac wheezing from CHF/pulmonary fluid overload. Lasix also seems to help. - DuoNeb treatments q4hrs - Continue prednisone 40 mg daily x5 days (today day 5) - Continue Azithromycin 500 mg PO x5 days (today day 5) - Continue incentive spirometer, EZ Pap (3) CHF, chronic Status: Chronic Plan: History of congestive heart failure, with possible acute exacerbation with fluid overload, mild basilar crackles. SOB now resolving. - Follow clinically, additional Lasix/Bumex if indicated - Continue Lopressor from home - Monitor fluid status, daily I's and O's and weights (4) Atrial fibrillation Status: Chronic Plan: Rate controlled. Has ICD in place. - Cardiology on board, appreciate assistance - Resumed Eliquis - Continue aspirin and Plavix (5) Coronary artery disease Status: Chronic Plan: Presented with elevated troponin and T-wave flattening and has a history of coronary artery disease. Had negative cardiac PET in 2014. No chest pain currently. - Cardiology on board, appreciate assistance - Continue aspirin and Plavix - Continue beta dex - Added isosorbide dinitrate 10 mg PO daily to treat probable anginal symptoms - Stress test in the future (6) Pressure ulcer Status: Acute Plan: See physical exam; several lesions noted on presentation to ICU. Do not appear acutely infected. - Wound care nurse consulted, appreciate recommendations - Topical ointments to promote healing - Air mattress - Rotate patient every 2 hours - Monitor clinically (7) Depressed Status: Acute Plan: Significant depression with recent loss of family member. Also with significant weight loss. Symptoms seem to be improving, but she is upset about her current health status. Appetite has improved and she is eating well. - Remeron 15 mg HS for depression and appetite stimulation (8) FEN/PPX Status: Acute Plan: Fluids: With dialysis. Monitor fluid status routinely. Electrolytes: Monitor Nutrition: Renal diet, mechanical soft consistency per speech therapy DVT: Resumed home Eliquis charanjit Talamantes (Anthony Kimbrough MD R1) Problem Qualifiers (1) Atrial fibrillation: Qualified Code: I48.2 - Chronic atrial fibrillation (2) Coronary artery disease: Qualified Code: I25.118 - Coronary artery disease of [place] artery of [place] heart with stable angina pectoris Anthony Kimbrough MD R1 Dec 01, 2016 09:02 Esperanza Talamantes MD Dec 01, 2016 12:26
[2016-12-01] MEDS: INSULIN DETEMIR 100 UNITS/ML VIAL SQ SCH ×2 (10:02→19:47)
[2016-12-01] MEDS: CHOLECALCIFEROL (VIT D3) 1000 UNIT TAB PO SCH (10:03)
[2016-12-01] MEDS: APIXABAN 2.5 MG TABLET PO SCH ×2 (10:03→19:46)
[2016-12-01] MEDS: FLUCONAZOLE 100 MG TAB PO SCH (10:03)
[2016-12-01] MEDS: METOPROLOL TARTRATE 25 MG TAB PO SCH ×2 (10:04→19:47)
[2016-12-01] MEDS: VITAMIN B CMPLX/VITC/FOLIC AC CAP PO SCH (10:04)
[2016-12-01] MEDS: CLOPIDOGREL 75 MG TAB PO SCH (10:04)
[2016-12-01] MEDS: FUROSEMIDE 20 MG TAB PO SCH ×2 (10:04→19:47)
[2016-12-01] MEDS: ISOSORBIDE DINITRATE 10 MG TAB PO SCH (10:05)
[2016-12-01] MEDS: predniSONE 20 MG TAB PO SCH (10:05)
[2016-12-01] MEDS: PANTOPRAZOLE SODIUM 40 MG VIAL IV SCH (10:06)
[2016-12-01] MEDS ORDERED: SODIUM CHLORIDE 0.9% FLUSH 10 ML FLUSH IV FLUSH PRN (10:30)
[2016-12-01] MEDS ORDERED: ACETAMINOPHEN 325 MG TAB PO PRN (10:30)
[2016-12-01] MEDS ORDERED: GELATIN 12 MM/7 MM FOAM TOP PRN (10:30)
[2016-12-01] MEDS ORDERED: diphenhydrAMINE HCL 25 MG CAP PO PRN (10:30)
[2016-12-01] MEDS ORDERED: cloNIDine HCL 0.1 MG TAB PO PRN (10:30)
[2016-12-01] MEDS ORDERED: HEPARIN SODIUM - IV 10,000 UNITS/10 ML VIAL IVF PRN (10:30)
[2016-12-01] MEDS ORDERED: ONDANSETRON HCL 4 MG/2 ML VIAL IV PRN (10:30)
[2016-12-01] MEDS ORDERED: SODIUM CHLOR 0.9% 1000 ML INJ 1,000 ML IV PRN ×3 (10:30→11:00)
[2016-12-01] MEDS ORDERED: ALBUMIN HUMAN 25% 25 GM/100 ML BAGP IV PRN (10:30)
[2016-12-01] MEDS ORDERED: GENTAMICIN SULFATE (DIALYSIS USE ONLY) 20 MG/2 ML VIAL IV PRN (10:30)
[2016-12-01] MEDS ORDERED: HEPARIN SODIUM - IV 10,000 UNITS/10 ML VIAL PRN (10:30)
[2016-12-01] MEDS ORDERED: NITROGLYCERIN 0.4 MG SL 25 TABS/BTL SL PRN (10:30)
[2016-12-01] MEDS ORDERED: MANNITOL 12.5 GM/50 ML VIAL IV PRN (10:30)
--- NOTE | 2016-12-01 10:30 | HHI.NPPN ---
Subjective History of Present Illness This patient is a 76-year-old female. Patient is a poor historian and history primarily obtained from the records. According to the records I reviewed the patient has a history of diabetes mellitus, hypertension as well as HIV. Infectious disease is currently in consultation as well as critical care. The patient was admitted to this institution on November 19, 2016 after being found "down" in her apartment. On presentation to the hospital she was noted to have a blood sugar of 957 with a creatinine of 2.68 and initially a sodium of 133 as well as a total CO2 on BMP of 10.6. Beta hydroxybutyrate was elevated. Patient has been treated for DKA and serum sodium level as expected has increased as a glucose level has dropped. Creatinine level is slightly improved today at 2.56. There is also evidence of rhabdomyolysis on presentation with significantly elevated CK level and a urinalysis positive for large amount of blood but minimal rbc. Of interest patient was taking Crestor as an outpatient. Interval History Pt sitting in bed with legs elevated. Very swollen this AM. + SOB (Kimi Platt) Review of Systems General Constitutional: Fatigue (Kimi Platt) Respiratory Lungs: SOB (Kimi Platt) Gastrointestinal GI Remarks Nausea, anorexia (Kimi Platt) Objective Data Data 11/30/16 12/01/16 19:00 07:00 Intake Total 85 ml 480 ml Output Total 0 ml 550 ml Balance 85 ml -70 ml Intake Oral 85 ml 480 ml Output Urine Total 0 ml 550 ml # Voids 1 # Bowel Movements 0 Vital Signs Date Time Temp Pulse Resp B/P Pulse Ox O2 Delivery O2 Flow Rate FiO2 12/01/16 08:00 98.5 81 20 129/63 95 12/01/16 07:55 90 Nasal Cannula 2.00 12/01/16 04:00 96.5 81 19 135/94 93 12/01/16 00:00 96.6 67 17 140/90 93 11/30/16 20:00 75 11/30/16 20:00 96.9 71 18 138/63 97 11/30/16 19:33 95 Nasal Cannula 2.00 11/30/16 12:00 97.5 77 18 116/55 95 (Kimi Platt) -: 11/30/16 0428 12/01/16 0455 Medication Review Current Medications Medications (Trade) Dose Ordered Sig/Francesca Route Start Time Stop Time Status Last Admin (NS Flush) 2 ml UNSCH PRN IVF 11/19/16 17:00 11/19/16 18:58 (Sodium Bicarbonate 8.4% Inj) 100 meq UNSCH PRN IV 11/19/16 18:45 (Sodium Bicarbonate 8.4% Inj) 50 meq UNSCH PRN IV 11/19/16 18:45 (Protonix Inj) 40 mg DAILY IV 11/20/16 09:00 12/01/16 10:06 (Zofran Inj) 4 mg Q6H PRN IV 11/20/16 04:15 11/21/16 08:57 Miscellaneous Information 1 Q361D XX 11/20/16 04:15 11/20/16 04:15 (Chlorhexidine 2% Cloth) Taper DAILY@04 TOP 11/21/16 04:00 11/17/17 03:59 11/23/16 04:00 (Chlorhexidine 2% Cloth) 3 pack UNSCH PRN TOP 11/20/16 04:15 (Mycostatin Cream) 1 applic Q12HR TOPICAL 11/20/16 09:00 11/30/16 20:48 (Plavix) 75 mg DAILY PO 11/21/16 09:00 12/01/16 10:04 (D50w (Vial) Inj) 25 ml UNSCH PRN IV PUSH 11/20/16 17:00 11/29/16 05:19 (Glucagon Inj) 1 mg UNSCH PRN OTHER 11/20/16 17:00 (NovoLOG SUPPLEMENTAL SCALE) 1 Q4HR SQ 11/20/16 16:00 12/01/16 10:03 (Vitamin D3) 2,000 units DAILY PO 11/21/16 14:15 12/01/16 10:03 (Lopressor) 25 mg Q12HR PO 11/21/16 14:00 12/01/16 10:04 (Remeron) 15 mg HS PO 11/23/16 21:00 11/30/16 20:34 (Aricept) 5 mg HS PO 11/23/16 21:00 11/30/16 20:34 (Levemir Inj) 5 units Q12HR SQ 11/24/16 09:00 12/01/16 10:02 (Bactroban 2% Oint) 1 applic Q12HR TOPICAL 11/24/16 10:00 11/30/16 20:47 (Tylenol) 500 mg Q4H PRN PO 11/24/16 13:30 11/24/16 15:17 Oxycodone HCl 5 mg 5 mg Q6H PRN PO 11/24/16 13:30 11/28/16 23:38 (NS 1000 ml Inj) 1,000 ml @ 0 mls/hr Q0M PRN IV 11/25/16 11:55 11/29/16 11:32 Heparin Sodium (Porcine) 8000 units 8,000 units UNSCH PRN IVF 11/25/16 12:00 11/28/16 11:35 Sodium Chloride 1,000 ml @ 200 mls/hr Q5H PRN IV 11/25/16 11:55 (NS 1000 ml Inj) 1,000 ml @ 0 mls/hr Q0M PRN IV 11/25/16 11:55 (Mannitol Inj) 12.5 gm UNSCH PRN IV 11/25/16 12:00 (Albumin 25% Inj) 25 gm UNSCH PRN IV 11/25/16 12:00 11/29/16 11:32 (NS Flush) 5 ml UNSCH PRN IV FLUSH 11/25/16 12:00 (Heparin Inj) UNSCH PRN .XX 11/25/16 12:00 11/29/16 11:31 (Gentamicin (Dialysis) Inj) 20 mg UNSCH PRN IV 11/25/16 12:00 11/29/16 11:32 (Zofran Inj) 4 mg UNSCH PRN IV 11/25/16 12:00 (Tylenol) 650 mg UNSCH PRN PO 11/25/16 12:00 11/27/16 21:21 (Benadryl) 25 mg UNSCH PRN PO 11/25/16 12:00 (Nitrostat Sl) 0.4 mg UNSCH PRN SL 11/25/16 12:00 (Catapres) 0.1 mg UNSCH PRN PO 11/25/16 12:00 (Gelfoam 12 Mm/7 Mm Top) 1 foam UNSCH PRN TOP 11/25/16 12:00 (Diflucan) 100 mg DAILY PO 11/25/16 15:00 12/02/16 14:59 12/01/16 10:03 (Drisdol) 50,000 units Q7D PO 11/26/16 07:00 11/26/16 11:00 (Deltasone) 40 mg DAILY PO 11/27/16 15:00 12/01/16 10:05 (Eliquis) 2.5 mg BID PO 11/27/16 21:00 12/01/16 10:03 (Nephrocaps) 1 cap DAILY PO 11/30/16 09:00 12/01/16 10:04 (Lasix) 60 mg BID PO 11/29/16 21:00 12/01/16 10:04 (Isordil) 10 mg DAILY PO 11/30/16 10:00 12/01/16 10:05 (Kimi Platt) Physical Exam General Appearance: No Acute Distress, Pale, Malnourished (Kimi Platt) Pulmonary Resp Exam: Clear Bilaterally, Breath Sounds Equal (Kimi Platt) Cardiology CV Exam: Regular, Normal Sinus Rhythm (Kimi Platt) Gastrointestinal/Abdomen GI Exam: Soft, Non-Tender (Kimi Platt) Integumentary Skin Exam: Clear, Warm (Kimi Platt) Extremeties Extremities Exam: Moderate Edema (1+ pitting BLE up to thighs), Pitting Edema, Dependent Edema (Kimi Platt) Neurologic Neuro Exam: Alert, Awake, Speech Clear, Moving All Extremities (Kimi Platt) Psychiatric Psych Exam: Appropriate Responses (Kimi Platt) Assessment/Plan Discussed Condition With: Patient Problem List: (1) PRATIMA (acute kidney injury) Plan: iHD today as she has fluid retention and SOB. Will re-assess in the AM to see if needed again. Potential for renal recovery in the setting of acute kidney disease as discussed with her but this remains to be determined. If no improvement in renal function by early this week will consider changing Vas-Cath to a PermCath for outpatient dialysis. Medications should be adjusted for the patient's estimated GFR if clinically indicated. Avoid agents with significant potential for nephrotoxicity possible including NSAIDs for analgesia, iodine contrast agents. Gadolinium is contraindicated if the GFR is below 30. (2) Rhabdomyolysis Plan: Improved. Most likely was secondary to compression injury while patient was on the floor. Patient was on a statin drug i.e. Crestor so uncertain to what degree this may have played a role also. (3) CKD (chronic kidney disease) stage 3, GFR 30-59 ml/min Plan: Secondary to nephrosclerosis of hypertension and aging. (4) Vitamin D deficiency Plan: Vitamin D supplementation as ordered. (5) Congestive heart failure Plan: Continue by mouth furosemide and dialysis as indicated for fluid removal. (Kimi Platt) Plan The exam, history, and the medical decision-making described in the above note were completed with the assistance of the PA-C. I reviewed and agree with the findings presented. (Mario Valdes MD) Problem Qualifiers (1) Rhabdomyolysis: Qualified Code: M62.82 - Non-traumatic rhabdomyolysis Kimi Platt Dec 01, 2016 10:30 Mario Valdes MD Dec 02, 2016 10:29
--- NOTE | 2016-12-01 14:45 | PD.CARD.PN ---
Subjective Subjective Remarks The patient had an episode of SOB this morning that improved once she moved upright to chair. She has rale, elevated JVD and BLE edema. She is making urine. Isosorbide dinitrate started yesterday for possible anginal symptoms. She denies CP today Objective Vital Signs / I&O Vital Signs Date Time Temp Pulse Resp B/P Pulse Ox O2 Delivery O2 Flow Rate FiO2 12/01/16 12:00 96.7 88 20 166/70 90 12/01/16 08:00 98.5 81 20 129/63 95 12/01/16 07:55 90 Nasal Cannula 2.00 12/01/16 04:00 96.5 81 19 135/94 93 12/01/16 00:00 96.6 67 17 140/90 93 11/30/16 20:00 75 11/30/16 20:00 96.9 71 18 138/63 97 11/30/16 19:33 95 Nasal Cannula 2.00 I/O 11/30/16 11/30/16 11/30/16 12/01/16 12/01/16 12/01/16 07:00 15:00 23:00 07:00 15:00 23:00 Intake Total 240 ml 85 ml 240 ml 240 ml Output Total 450 ml 0 ml 550 ml Balance -210 ml 85 ml 240 ml -310 ml Intake Oral 240 ml 85 ml 240 ml 240 ml IV Total 0 ml Output Urine Total 450 ml 0 ml 550 ml # Voids 1 # Bowel Movements 1 0 Physical Exam GENERAL: Elderly female, awake and oriented. up in chair SKIN: Warm and dry. ecchymosis both arms HEAD: Normocephalic. EYES: No scleral icterus. No injection or drainage. NECK: Supple, trachea midline. Right IJ vasc cath, 4 cm JVD CARDIOVASCULAR: Regular rate and rhythm without murmurs, gallops, or rubs. RESPIRATORY: Breath sounds equal bilaterally. Bibasilar rales, nasal cannula GASTROINTESTINAL: Abdomen soft, non-tender, nondistended. MUSCULOSKELETAL: No cyanosis, 2+ BLE edema BACK: Nontender without obvious deformity. Laboratory Laboratory Tests Test 12/01/16 04:55 Sodium Level 135 MEQ/L Potassium Level 4.4 MEQ/L Chloride Level 96 MEQ/L Carbon Dioxide Level 30.4 MEQ/L Anion Gap 9 MEQ/L Blood Urea Nitrogen 37 MG/DL Creatinine 3.88 MG/DL Estimat Glomerular Filtration 11 ML/MIN Rate Random Glucose 134 MG/DL Calcium Level 7.8 MG/DL Phosphorus Level 3.2 MG/DL Magnesium Level 1.5 MG/DL Assessment and Plan Assessment and Plan ASSESSMENT Elevated troponin and T-wave flattening in an elderly female with known history of ASHD with last negative cardiac PET 2014. Recurrent episode of chest tightness after admission. Isosorbide dinitrate started yesterday. Continue Plavix. No ASA AMS/unconscious, found down. Work up reveals leukocytosis, lactic acidosis, DKA and rhabdomyolysis. Etiology of cause is not completely clear. ICD interrogation negative for acute arrhythmias Acute on chronic CKD due to above. On dialysis Atrial fibrillation with RVR since admission. Eliquis resumed. Hx atrial flutter s/p ablation 10/2016 ECHO EF 45-50%, Mild to mod MR and TR Hx SVT s/p ICD. HTN HLD Mild to moderate carotid stenosis PLAN Continue BB, diuretics, Eliquis, Plavix. Change from isosorbide dinitrate to mononitrate. More aggressive negative fluid balance. Patient making urine. Will complete ischemic workup outpatient. Assessment and plan discussed with Mallory Jaimes Dec 01, 2016 14:45
[2016-12-01] MEDS: EPOETIN ALFA 10,000 UNITS/ML VIAL SQ SCH (17:36)
[2016-12-01] MEDS: HEPARIN SODIUM - IV 10,000 UNITS/10 ML VIAL PRN (17:37)
[2016-12-01] MEDS: GENTAMICIN SULFATE (DIALYSIS USE ONLY) 20 MG/2 ML VIAL IV PRN (17:37)
[2016-12-01] MEDS: DONEPEZIL HCL 5 MG TAB PO SCH (19:46)
[2016-12-01] MEDS: MIRTAZAPINE 15 MG TAB PO SCH (19:47)
[2016-12-02] VITALS (7 sets, daily range): BP systolic 123–157; BP diastolic 61–70; PULSE 64–86; RESP 17–18; TEMP 96.3–98.7; O2SAT 90–100
[2016-12-02] MEDS: MEDIUM DOSE INSULIN NOVOLOG SUPPLEMENTAL SCALE SQ SCH ×5 (03:29→22:38)
[2016-12-02] MEDS: RESP: ALBUTEROL 2.5 MG/3 ML NEB (PRN) INH (04:08)
[2016-12-02 06:20] LABS: MEAN CELL VOLUME 81.6 FL (80.0-100.0); MEAN CORPUSCULAR HGB CONC 33.2 % (32.0-36.0); PLATELET COUNT 124 TH/MM3 (150-450); RED BLOOD COUNT 2.81 MIL/MM3 (4.00-5.30); RED CELL DISTRIBUTION WIDTH 14.8 % (11.6-17.2); REVIEW FLAG FINAL; WHITE BLOOD COUNT 5.7 TH/MM3 (4.0-11.0)
[2016-12-02] MEDS: ISOSORBIDE MONONITRATE 30 MG TAB PO SCH (06:40)
[2016-12-02 06:57] LABS: MAGNESIUM 1.5 MG/DL (1.5-2.5); POTASSIUM 3.4 MEQ/L (3.5-5.1)
[2016-12-02] MEDS: CHOLECALCIFEROL (VIT D3) 1000 UNIT TAB PO SCH (09:00)
[2016-12-02] MEDS: APIXABAN 2.5 MG TABLET PO SCH ×2 (09:00→22:32)
[2016-12-02] MEDS: METOPROLOL TARTRATE 25 MG TAB PO SCH ×2 (09:00→22:32)
[2016-12-02] MEDS: INSULIN DETEMIR 100 UNITS/ML VIAL SQ SCH ×2 (09:00→22:33)
[2016-12-02] MEDS: FUROSEMIDE 20 MG TAB PO SCH ×2 (09:00→22:32)
[2016-12-02] MEDS: VITAMIN B CMPLX/VITC/FOLIC AC CAP PO SCH (09:00)
[2016-12-02] MEDS: CLOPIDOGREL 75 MG TAB PO SCH (09:00)
[2016-12-02] MEDS: FLUCONAZOLE 100 MG TAB PO SCH (09:00)
[2016-12-02] MEDS: NYSTATIN 100,000 UNIT/GM CREAM 15 GM TOPICAL SCH ×2 (09:00→22:34)
[2016-12-02] MEDS: PANTOPRAZOLE SODIUM 40 MG VIAL IV SCH (09:00)
[2016-12-02] MEDS: MUPIROCIN 2% OINT 22 GM TUBE TOPICAL SCH ×2 (09:00→22:33)
[2016-12-02] MEDS: predniSONE 20 MG TAB PO SCH (09:00)
--- NOTE | 2016-12-02 11:21 | HHI.NPPN ---
Subjective History of Present Illness This patient is a 76-year-old female. Patient is a poor historian and history primarily obtained from the records. According to the records I reviewed the patient has a history of diabetes mellitus, hypertension as well as HIV. Infectious disease is currently in consultation as well as critical care. The patient was admitted to this institution on November 19, 2016 after being found "down" in her apartment. On presentation to the hospital she was noted to have a blood sugar of 957 with a creatinine of 2.68 and initially a sodium of 133 as well as a total CO2 on BMP of 10.6. Beta hydroxybutyrate was elevated. Patient has been treated for DKA and serum sodium level as expected has increased as a glucose level has dropped. Creatinine level is slightly improved today at 2.56. There is also evidence of rhabdomyolysis on presentation with significantly elevated CK level and a urinalysis positive for large amount of blood but minimal rbc. Of interest patient was taking Crestor as an outpatient. Interval History Patient seen during dialysis today. Indicated that his shortness of breath has improved. Review of Systems General Constitutional: Fatigue Respiratory Lungs: SOB Gastrointestinal GI Remarks Nausea, anorexia Objective Data Data 12/01/16 12/02/16 19:00 07:00 Intake Total 480 ml 480 ml Output Total 600 ml 350 ml Balance -120 ml 130 ml Intake Oral 480 ml 480 ml Output Urine Total 600 ml 350 ml # Voids 1 Vital Signs Date Time Temp Pulse Resp B/P Pulse Ox O2 Delivery O2 Flow Rate FiO2 12/02/16 08:00 96.3 86 18 157/68 12/02/16 04:09 90 Nasal Cannula 2.00 12/02/16 00:00 98.7 64 17 123/62 100 12/01/16 20:00 96.9 90 17 127/65 98 12/01/16 12:00 96.7 88 20 166/70 90 -: 12/02/16 0514 12/02/16 05 Tubes & Lines: Vas-Cath Physical Exam General Appearance: No Acute Distress, Pale, Malnourished Appearance Remarks Appears to be mildly dyspneic. Pulmonary Resp Exam: Clear Bilaterally, Breath Sounds Equal Cardiology CV Exam: Regular, Normal Sinus Rhythm Gastrointestinal/Abdomen GI Exam: Soft, Non-Tender Integumentary Skin Exam: Clear, Warm Extremeties Extremities Exam: Moderate Edema (1+ pitting BLE up to thighs), Pitting Edema, Dependent Edema Neurologic Neuro Exam: Alert, Awake, Speech Clear, Moving All Extremities Psychiatric Psych Exam: Appropriate Responses Assessment/Plan Discussed Condition With: Patient Problem List: (1) PRATIMA (acute kidney injury) Plan: Patient's urine output appears to be somewhat improved however still has significant fluid retention. We'll try for 3000 mL fluid removal today and she does have significant edema above the knee. Encouraged to improve her nutritional intake. Repeat labs tomorrow and reassess urine output prior to considering PermCath placement.. She was seen during her dialysis treatment today. Medications should be adjusted for the patient's estimated GFR if clinically indicated. Avoid agents with significant potential for nephrotoxicity possible including NSAIDs for analgesia, iodine contrast agents. Gadolinium is contraindicated if the GFR is below 30. (2) Rhabdomyolysis Plan: Improved. Most likely was secondary to compression injury while patient was on the floor. Patient was on a statin drug i.e. Crestor so uncertain to what degree this may have played a role also. (3) CKD (chronic kidney disease) stage 3, GFR 30-59 ml/min Plan: Secondary to nephrosclerosis of hypertension and aging. (4) Vitamin D deficiency Plan: Vitamin D supplementation as ordered. (5) Congestive heart failure Plan: Continue by mouth furosemide and dialysis as indicated for fluid removal. Plan The exam, history, and the medical decision-making described in the above note were completed with the assistance of the SAL[facility]. I reviewed and agree with the findings presented. Problem Qualifiers (1) Rhabdomyolysis: Qualified Code: M62.82 - Non-traumatic rhabdomyolysis Mario Valdes MD Dec 02, 2016 11:21
[2016-12-02] MEDS: EPOETIN ALFA 10,000 UNITS/ML VIAL IV SCH (12:08)
[2016-12-02] MEDS: HEPARIN SODIUM - IV 10,000 UNITS/10 ML VIAL PRN (12:09)
[2016-12-02] MEDS: GENTAMICIN SULFATE (DIALYSIS USE ONLY) 20 MG/2 ML VIAL IV PRN (12:09)
[2016-12-02] MEDS: SODIUM CHLOR 0.9% 1000 ML INJ 1,000 ML IV PRN (12:10)
--- NOTE | 2016-12-02 13:59 | HHI.FPPN ---
Subjective Remarks Patient receiving dialysis this morning. Reports feeling overall better. Reports no significant issues with breathing. She is tolerating dialysis well. Chest pain has resolved. No shortness of breath this morning. (Chato Culp MD R2) Objective Vitals Vital Signs Date Time Temp Pulse Resp B/P Pulse Ox O2 Delivery O2 Flow Rate FiO2 12/02/16 08:00 96.3 86 18 157/68 12/02/16 04:09 90 Nasal Cannula 2.00 12/02/16 00:00 98.7 64 17 123/62 100 12/01/16 20:00 96.9 90 17 127/65 98 I/O 12/01/16 12/01/16 12/01/16 12/02/16 12/02/16 12/02/16 07:00 15:00 23:00 07:00 15:00 23:00 Intake Total 240 ml 720 ml 240 ml Output Total 550 ml 600 ml 350 ml Balance -310 ml 120 ml -110 ml Intake Oral 240 ml 720 ml 240 ml Output Urine Total 550 ml 600 ml 350 ml # Voids 1 (Chato Culp MD R2) Result Diagram: 12/02/1614 12/02/16 0514 Objective Remarks GENERAL: Lying in bed receiving dialysis, in a good mood SKIN: Mild pallor. No rashes. Large ecchymosis covering left forearm and distal 1/3 of left upper arm on posteromedial side. Ecchymosis of right mid-arm, left hip. These are resolving from prior exams. Cool and dry. Stage 2 sacral decubitus ulcer right buttock near midline. Stage 1 pressure ulcer right upper back, b/l heels. CARDIOVASCULAR: NRRR. Normal S1/S2. No MRG RESPIRATORY: CTAB, good air entry MUSCULOSKELETAL: Small superficial abrasion on dorsal aspect of middle finger. Slightly erythematous but evidence of cellulitis or abscess. Full ROM. 1+ edema of BLE to just above ankles (sitting up with legs dependent). Pitting edema up to the knees. NEUROLOGICAL: Awake and alert. Well oriented. (Chato Culp MD R2) A/P Assessment and Plan 76 year old female with PMH of DM, AFib, COPD, CKD initially presented with DKA , rhabdomyolysis, and sepsis, now with resolved DKA, but now with acute renal failure and requiring hemodialysis. sdw Dr. Dr. Kaylan Talamantes Discharge Planning Will need rehabilitation/SNF placement on discharge. Palliative care is involved. She wants aggressive care for the time being. (Chato Culp MD R2) Attending Attestation Patient seen, examined, and discussed with resident team. I agree with assessment and management as documented and discussed with me. Pt seen in dialysis. She is feeling like her breathing is improved after having her excess fluid removed during dialysis. She reports that she sold her car in anticipation of going to [facility]. (Esperanza Talamantes MD) Problem List: (1) Acute on chronic kidney failure Status: Acute Plan: Likely multifactorial etiology, including rhabdomyolysis, ATN, cardiogenic. Creatinine reached a peak of 6.19 with BUN of 82, with decreasing urinary output and increasing potassium level, and decision was made to initiate hemodialysis. Creatinine down to 2.68 today, BUN of 27. Urine output of 960. - Nephrology on board, appreciate assistance - Hemodialysis per nephrology recs - Monitor I&O's, urine output, electrolytes - Avoid nephrotoxic agents - Renally dose medications - Monitor electrolytes - Monitor kidney function/urine output - May need PermCath depending on urine output and kidney function tomorrow. (2) Chronic obstructive lung disease Status: Acute Plan: Lungs now clear to auscultation. Sx could have been due to COPD exacerbation versus cardiac wheezing from CHF/pulmonary fluid overload. Lasix also seems to help. - DuoNeb treatments q4hrs - Prednisone and azithromycin completed - Continue incentive spirometer, EZ Pap (3) CHF, chronic Status: Chronic Plan: History of congestive heart failure, with possible acute exacerbation with fluid overload, mild basilar crackles. SOB now resolving. - Follow clinically, additional Lasix/Bumex if indicated - Continue Lopressor from home - Monitor fluid status, daily I's and O's and weights (4) Atrial fibrillation Status: Chronic Plan: Rate controlled. Has ICD in place. - Cardiology on board, appreciate assistance - Resumed Eliquis - Continue aspirin and Plavix (5) Coronary artery disease Status: Chronic Plan: Presented with elevated troponin and T-wave flattening and has a history of coronary artery disease. Had negative cardiac PET in 2015. No chest pain currently. - Cardiology on board, appreciate assistance - Continue aspirin and Plavix - Continue beta dex - Added isosorbide dinitrate 10 mg PO daily to treat probable anginal symptoms - Stress test in the future (6) Pressure ulcer Status: Acute Plan: See physical exam; several lesions noted on presentation to ICU. Do not appear acutely infected. - Wound care nurse consulted, appreciate recommendations - Topical ointments to promote healing - Air mattress - Rotate patient every 2 hours - Monitor clinically (7) Depressed Status: Acute Plan: Significant depression with recent loss of family member. Also with significant weight loss. Symptoms seem to be improving, but she is upset about her current health status. Appetite has improved and she is eating well. - Remeron 15 mg HS for depression and appetite stimulation (8) FEN/PPX Status: Acute Plan: Fluids: With dialysis. Monitor fluid status routinely. Electrolytes: Monitor Nutrition: Renal diet, mechanical soft consistency per speech therapy DVT: Resumed home Eliquis (Chato Culp MD R2) Problem Qualifiers (1) Atrial fibrillation: Qualified Code: I48.2 - Chronic atrial fibrillation (2) Coronary artery disease: Qualified Code: I25.118 - Coronary artery disease of [place] artery of [place] heart with stable angina pectoris Chato Culp MD R2 Dec 02, 2016 13:59 Esperanza Talamantes MD Dec 02, 2016 20:09 (7) Depressed Status: Acute Plan: Significant depression with recent loss of family member. Also with significant weight loss. Symptoms seem to be improving, but she is upset about her current health status. Appetite has improved and she is eating well. - Remeron 15 mg HS for depression and appetite stimulation (8) FEN/PPX Status: Acute Plan: Fluids: With dialysis. Monitor fluid status routinely. Electrolytes: Monitor Nutrition: Renal diet, mechanical soft consistency per speech therapy DVT: Resumed home Delores Talamantes Problem Qualifiers (1) Atrial fibrillation: Qualified Code: I48.2 - Chronic atrial fibrillation (2) Coronary artery disease: Qualified Code: I25.118 - Coronary artery disease of [place] artery of [place] heart with stable angina pectoris Chato Culp MD R2 Dec 02, 2016 13:59
[2016-12-02] MEDS: MIRTAZAPINE 15 MG TAB PO SCH (22:32)
[2016-12-02] MEDS: DONEPEZIL HCL 5 MG TAB PO SCH (22:32)
[2016-12-03] VITALS (7 sets, daily range): BP systolic 103–147; BP diastolic 52–68; PULSE 63–75; RESP 16–20; TEMP 96.3–98.1; O2SAT 91–99
[2016-12-03] MEDS: RESP: ALBUTEROL 2.5 MG/3 ML NEB (PRN) INH ×2 (02:48→16:55)
[2016-12-03] MEDS: MEDIUM DOSE INSULIN NOVOLOG SUPPLEMENTAL SCALE SQ SCH ×6 (04:00→20:00)
[2016-12-03] MEDS: CHLORHEXIDINE GLUCONATE 2 % 1 PACK (2 CLOTHS) TOP SCH (04:00)
[2016-12-03] MEDS: ISOSORBIDE MONONITRATE 30 MG TAB PO SCH (06:04)
[2016-12-03] MEDS: ERGOCALCIFEROL (VIT D2) 50,000 UNIT CAP PO SCH (06:04)
[2016-12-03 07:53] LABS: HEMATOCRIT 24.2 % (35.0-46.0); MEAN CELL VOLUME 81.9 FL (80.0-100.0); MEAN CORPUSCULAR HEMOGLOBIN 26.8 PG (27.0-34.0); MEAN CORPUSCULAR HGB CONC 32.7 % (32.0-36.0); PLATELET COUNT 145 TH/MM3 (150-450); RED BLOOD COUNT 2.95 MIL/MM3 (4.00-5.30); RED CELL DISTRIBUTION WIDTH 14.5 % (11.6-17.2); REVIEW FLAG FINAL; WHITE BLOOD COUNT 5.8 TH/MM3 (4.0-11.0)
[2016-12-03] MEDS: METOPROLOL TARTRATE 25 MG TAB PO SCH ×2 (08:12→20:53)
[2016-12-03] MEDS: CHOLECALCIFEROL (VIT D3) 1000 UNIT TAB PO SCH (08:13)
[2016-12-03] MEDS: VITAMIN B CMPLX/VITC/FOLIC AC CAP PO SCH (08:13)
[2016-12-03] MEDS: APIXABAN 2.5 MG TABLET PO SCH ×2 (08:13→20:52)
[2016-12-03] MEDS: CLOPIDOGREL 75 MG TAB PO SCH (08:13)
[2016-12-03] MEDS: PANTOPRAZOLE SODIUM 40 MG VIAL IV SCH (08:14)
[2016-12-03] MEDS: FUROSEMIDE 20 MG TAB PO SCH ×2 (08:14→20:52)
[2016-12-03 08:17] LABS: BICARBONATE 32.5 MEQ/L (21.0-32.0); POTASSIUM 3.4 MEQ/L (3.5-5.1)
[2016-12-03] MEDS: INSULIN DETEMIR 100 UNITS/ML VIAL SQ SCH ×2 (08:27→21:00)
[2016-12-03] MEDS: MUPIROCIN 2% OINT 22 GM TUBE TOPICAL SCH ×2 (09:00→20:53)
--- NOTE | 2016-12-03 10:23 | HHI.FPPN ---
Subjective Remarks Sitting up in chair. No distress. Reports she feels good today. However, she did have a borderline low blood glucose this morning and feels jittery from that. The low blood glucose was addressed by nursing staff. She does not like her chocolate Ensure and did not eat much last night. She has some orthopnea at night but overall reports his breathing is good, especially while sitting up. She reports no coughing or wheezing. No chest pain. No abdominal pain. No nausea or vomiting. No calf tenderness. She has been tolerating hemodialysis well. Not planning for dialysis today. We discussed possibility of PermCath for future dialysis. Objective Vitals Vital Signs Date Time Temp Pulse Resp B/P Pulse Ox O2 Delivery O2 Flow Rate FiO2 12/03/16 08:00 96.3 73 16 147/64 93 12/03/16 02:50 91 Nasal Cannula 3.00 12/03/16 00:00 97.4 75 17 136/63 96 12/02/16 21:30 94 Nasal Cannula 2.50 12/02/16 21:15 94 Nasal Cannula 2.50 12/02/16 20:00 97.4 85 17 129/61 96 12/02/16 16:00 98.6 85 17 150/70 98 I/O 12/02/16 12/02/16 12/02/16 12/03/16 12/03/16 12/03/16 07:00 15:00 23:00 07:00 15:00 23:00 Intake Total 480 ml 240 ml 240 ml Output Total 350 ml Balance 130 ml 240 ml 240 ml Intake Oral 480 ml 240 ml 240 ml Output Urine Total 350 ml # Voids 2 3 # Bowel Movements 0 Result Diagram: 12/03/16 0645 12/03/16 0615 Objective Remarks GENERAL: Sitting up in bed, good mood, no distress, somewhat jittery from prior borderline low glucose SKIN: Mild pallor. No rashes. Large ecchymosis covering left forearm and distal 1/3 of left upper arm on posteromedial side. Ecchymosis of right mid-arm, left hip. These are resolving from prior exams. Cool and dry. Stage 2 sacral decubitus ulcer right buttock near midline. Stage 1 pressure ulcer right upper back, b/l heels. CARDIOVASCULAR: NRRR. Normal S1/S2. No MRG RESPIRATORY: CTAB, good air entry, minimal crackles MUSCULOSKELETAL: Small superficial abrasion on dorsal aspect of middle finger. Slightly erythematous but evidence of cellulitis or abscess. Full ROM. 1+ edema of BLE to just above ankles (sitting up with legs dependent). Pitting edema up to the knees. NEUROLOGICAL: Awake and alert. Well oriented. A/P Assessment and Plan 76 year old female with PMH of DM, AFib, COPD, CKD initially presented with DKA , rhabdomyolysis, and sepsis, now with resolved DKA, but now with acute renal failure and requiring hemodialysis. sdw Dr. Kaylan barone Discharge Planning Will need rehabilitation/SNF placement on discharge. Palliative care is involved. She wants aggressive care for the time being. Problem List: (1) Acute on chronic kidney failure Status: Acute Plan: Likely multifactorial etiology, including rhabdomyolysis, ATN, cardiogenic. Creatinine reached a peak of 6.19 with BUN of 82, with decreasing urinary output and increasing potassium level, and decision was made to initiate hemodialysis. Creatinine down to 2.4 today, BUN of 20. Urine output not recorded this morning, 950 ml yesterday. Pitting edema up to knees. - Nephrology on board, appreciate assistance - Hemodialysis per nephrology recs - Monitor I&O's, urine output, electrolytes - Avoid nephrotoxic agents - Renally dose medications - Monitor electrolytes - Monitor kidney function/urine output - May need PermCath depending on urine output (2) Chronic obstructive lung disease Status: Acute Plan: Lungs now clear to auscultation. Sx could have been due to COPD exacerbation versus cardiac wheezing from CHF/pulmonary fluid overload. Lasix also seems to help. - DuoNeb treatments q4hrs - Prednisone and azithromycin completed - Continue incentive spirometer, EZ Pap - Monitor fluid balance (3) CHF, chronic Status: Chronic Plan: History of congestive heart failure, with possible acute exacerbation with fluid overload, mild basilar crackles. SOB now resolving. - Follow clinically, additional Lasix/Bumex if indicated - Continue Lopressor from home - Monitor fluid status, daily I's and O's and weights (4) Atrial fibrillation Status: Chronic Plan: Rate controlled. Has ICD in place. - Cardiology on board, appreciate assistance - Resumed Eliquis - Continue aspirin and Plavix (5) Coronary artery disease Status: Chronic Plan: Presented with elevated troponin and T-wave flattening and has a history of coronary artery disease. Had negative cardiac PET in 2015. No chest pain currently. - Cardiology on board, appreciate assistance - Continue aspirin and Plavix - Continue beta dex - Added isosorbide dinitrate 10 mg PO daily to treat probable anginal symptoms - Stress test in the future (6) Pressure ulcer Status: Acute Plan: See physical exam; several lesions noted on presentation to ICU. Do not appear acutely infected. - Wound care nurse consulted, appreciate recommendations - Topical ointments to promote healing - Air mattress - Rotate patient every 2 hours - Monitor clinically (7) Depressed Status: Acute Plan: Significant depression with recent loss of family member. Also with significant weight loss. Symptoms seem to be improving, but she is upset about her current health status. Appetite has improved and she is eating well. Now on Remeron, moods appear much improved from admission. Still trying to encourage good nutrition, giving Ensure as a supplement. - Remeron 15 mg HS for depression and appetite stimulation (8) FEN/PPX Status: Acute Plan: Fluids: With dialysis. Monitor fluid status routinely. Electrolytes: Monitor Nutrition: Renal diet, mechanical soft consistency per speech therapy DVT: Resumed home Eliquis Problem Qualifiers (1) Atrial fibrillation: Qualified Code: I48.2 - Chronic atrial fibrillation (2) Coronary artery disease: Qualified Code: I25.118 - Coronary artery disease of [place] artery of [place] heart with stable angina pectoris Chato Culp MD R2 Dec 03, 2016 10:23
[2016-12-03] MEDS: NYSTATIN 100,000 UNIT/GM CREAM 15 GM TOPICAL SCH ×2 (12:40→20:53)
--- NOTE | 2016-12-03 17:46 | HHI.NPPN ---
Subjective History of Present Illness This patient is a 76-year-old female. Patient is a poor historian and history primarily obtained from the records. According to the records I reviewed the patient has a history of diabetes mellitus, hypertension as well as HIV. Infectious disease is currently in consultation as well as critical care. The patient was admitted to this institution on November 19, 2016 after being found "down" in her apartment. On presentation to the hospital she was noted to have a blood sugar of 957 with a creatinine of 2.68 and initially a sodium of 133 as well as a total CO2 on BMP of 10.6. Beta hydroxybutyrate was elevated. Patient has been treated for DKA and serum sodium level as expected has increased as a glucose level has dropped. Creatinine level is slightly improved today at 2.56. There is also evidence of rhabdomyolysis on presentation with significantly elevated CK level and a urinalysis positive for large amount of blood but minimal rbc. Of interest patient was taking Crestor as an outpatient. Interval History Patient still with some shortness of breath but improved. Review of Systems General Constitutional: Fatigue Respiratory Lungs: SOB Gastrointestinal GI Remarks Nausea, anorexia Objective Data Data 12/02/16 12/03/16 19:00 07:00 Intake Total 480 ml Balance 480 ml Intake Oral 480 ml # Voids 5 Vital Signs Date Time Temp Pulse Resp B/P Pulse Ox O2 Delivery O2 Flow Rate FiO2 12/03/16 16:55 98 Nasal Cannula 3.00 12/03/16 16:00 97.9 70 18 126/61 92 12/03/16 12:00 96.9 63 17 109/68 99 12/03/16 08:00 96.3 73 16 147/64 93 12/03/16 02:50 91 Nasal Cannula 3.00 12/03/16 00:00 97.4 75 17 136/63 96 12/02/16 21:30 94 Nasal Cannula 2.50 12/02/16 21:15 94 Nasal Cannula 2.50 12/02/16 20:00 97.4 85 17 129/61 96 -: 12/03/16 0645 12/03/16 0615 Tubes & Lines: Vas-Cath Physical Exam General Appearance: No Acute Distress, Pale Appearance Remarks Appears to be mildly dyspneic. Pulmonary Resp Exam: Clear Bilaterally, Breath Sounds Equal Cardiology CV Exam: Regular, Normal Sinus Rhythm Gastrointestinal/Abdomen GI Exam: Soft, Non-Tender Integumentary Skin Exam: Clear, Warm Extremeties Extremities Exam: Trace Edema (left lower extremity), Moderate Edema (right lower extremity site of old injury and chronic), Pitting Edema, Dependent Edema Neurologic Neuro Exam: Alert, Awake, Speech Clear, Moving All Extremities Psychiatric Psych Exam: Appropriate Responses Assessment/Plan Discussed Condition With: Patient Problem List: (1) PRATIMA (acute kidney injury) Plan: Repeat renal function panel tomorrow. If patient appears to be dialysis dependent will proceed with placement of a hemodialysis PermCath for outpatient dialysis. Thereafter discharge planning okay from renal point of view after arrangements are made at the dialysis unit. The patient was advised that even if we have to do outpatient dialysis there is still potential for renal recovery and discontinuance of dialysis. Medications should be adjusted for the patient's estimated GFR if clinically indicated. Avoid agents with significant potential for nephrotoxicity possible including NSAIDs for analgesia, iodine contrast agents. Gadolinium is contraindicated if the GFR is below 30. (2) Rhabdomyolysis Plan: Improved. Most likely was secondary to compression injury while patient was on the floor. Patient was on a statin drug i.e. Crestor so uncertain to what degree this may have played a role also. (3) CKD (chronic kidney disease) stage 3, GFR 30-59 ml/min Plan: Secondary to nephrosclerosis of hypertension and aging. (4) Vitamin D deficiency Plan: Vitamin D supplementation as ordered. (5) Congestive heart failure Plan: Continue by mouth furosemide and dialysis as indicated for fluid removal. Plan The exam, history, and the medical decision-making described in the above note were completed with the assistance of the [facility]. I reviewed and agree with the findings presented. Problem Qualifiers (1) Rhabdomyolysis: Qualified Code: M62.82 - Non-traumatic rhabdomyolysis Mario Valdes MD Dec 03, 2016 17:46
[2016-12-03] MEDS: DONEPEZIL HCL 5 MG TAB PO SCH (20:52)
[2016-12-03] MEDS: MIRTAZAPINE 15 MG TAB PO SCH (20:53)
[2016-12-04] VITALS (7 sets, daily range): BP systolic 104–144; BP diastolic 54–62; PULSE 65–78; RESP 17–20; TEMP 96.8–99.1; O2SAT 95–99
[2016-12-04] MEDS: RESP: ALBUTEROL 2.5 MG/3 ML NEB (PRN) INH ×4 (01:36→23:51)
[2016-12-04] MEDS: CHLORHEXIDINE GLUCONATE 2 % 1 PACK (2 CLOTHS) TOP SCH (04:00)
[2016-12-04] MEDS: MEDIUM DOSE INSULIN NOVOLOG SUPPLEMENTAL SCALE SQ SCH ×6 (04:52→20:58)
[2016-12-04 05:09] LABS: MEAN CELL VOLUME 80.9 FL (80.0-100.0); MEAN CORPUSCULAR HEMOGLOBIN 26.8 PG (27.0-34.0); MEAN CORPUSCULAR HGB CONC 33.2 % (32.0-36.0); PLATELET COUNT 109 TH/MM3 (150-450); RED BLOOD COUNT 2.42 MIL/MM3 (4.00-5.30); RED CELL DISTRIBUTION WIDTH 14.7 % (11.6-17.2)
[2016-12-04 05:31] LABS: REVIEW FLAG FINAL
[2016-12-04 05:33] LABS: HEMATOCRIT 19.6 % (35.0-46.0)
[2016-12-04] MEDS ORDERED: ACETAMINOPHEN 325 MG TAB PO PRN (05:45)
[2016-12-04] MEDS ORDERED: SODIUM CHLOR 0.9% 250 ML INJ 250 ML IV ONE ×2 (05:45)
[2016-12-04] MEDS ORDERED: diphenhydrAMINE HCL 25 MG CAP PO PRN (05:45)
[2016-12-04] MEDS ORDERED: FUROSEMIDE 20 MG/2 ML VIAL IV ONE (05:45)
[2016-12-04 06:01] LABS: BICARBONATE 30.3 MEQ/L (21.0-32.0); POTASSIUM 3.9 MEQ/L (3.5-5.1)
[2016-12-04 06:24] LABS: CALCIUM-PROTEIN CORRECTED 8.5 MG/DL (8.5-10.1)
[2016-12-04] MEDS: ISOSORBIDE MONONITRATE 30 MG TAB PO SCH (06:31)
[2016-12-04] MEDS: FUROSEMIDE 20 MG TAB PO SCH ×2 (08:12→20:58)
[2016-12-04] MEDS: VITAMIN B CMPLX/VITC/FOLIC AC CAP PO SCH (08:12)
[2016-12-04] MEDS: CLOPIDOGREL 75 MG TAB PO SCH (08:12)
[2016-12-04] MEDS: APIXABAN 2.5 MG TABLET PO SCH ×2 (08:13→20:58)
[2016-12-04] MEDS: INSULIN DETEMIR 100 UNITS/ML VIAL SQ SCH ×2 (08:13→20:59)
[2016-12-04] MEDS: PANTOPRAZOLE SODIUM 40 MG VIAL IV SCH (08:13)
[2016-12-04] MEDS: CHOLECALCIFEROL (VIT D3) 1000 UNIT TAB PO SCH (08:13)
[2016-12-04] MEDS: METOPROLOL TARTRATE 25 MG TAB PO SCH ×2 (08:14→20:58)
[2016-12-04] MEDS: NYSTATIN 100,000 UNIT/GM CREAM 15 GM TOPICAL SCH ×2 (08:14→20:59)
[2016-12-04] MEDS: MUPIROCIN 2% OINT 22 GM TUBE TOPICAL SCH ×2 (08:15→20:59)
[2016-12-04 09:06] LABS: HEMATOCRIT 21.1 % (35.0-46.0); REVIEW FLAG FINAL
--- NOTE | 2016-12-04 11:18 | HHI.FPPN ---
Subjective Remarks Patient's hemoglobin dropped from 7.9 to 6.5 in one day. Repeat hemoglobin this morning is 7.3. She reports feeling tired, but this is her baseline. No lightheadedness. Reports normal stools. No nausea or vomiting. Reports breathing is at baseline. Feels good overall. (Chato Culp MD R2) Objective Vitals Vital Signs Date Time Temp Pulse Resp B/P Pulse Ox O2 Delivery O2 Flow Rate FiO2 12/04/16 09:27 17 12/04/16 08:00 97.4 75 19 127/60 96 12/04/16 00:05 96.8 75 20 144/62 97 12/03/16 20:00 98.1 74 20 103/52 96 12/03/16 16:55 98 Nasal Cannula 3.00 12/03/16 16:00 97.9 70 18 126/61 92 12/03/16 12:00 96.9 63 17 109/68 99 I/O 12/03/16 12/03/16 12/03/16 12/04/16 12/04/16 12/04/16 07:00 15:00 23:00 07:00 15:00 23:00 Intake Total 240 ml 720 ml 240 ml 120 ml 120 ml Output Total 300 ml 350 ml Balance 240 ml 720 ml -60 ml -230 ml 120 ml Intake Oral 240 ml 720 ml 240 ml 120 ml 120 ml Output Urine Total 300 ml 350 ml # Voids 3 1 # Bowel Movements 1 0 0 (Chato Culp MD R2) Result Diagram: 12/04/16 0832 12/04/16 0352 Objective Remarks GENERAL: Sitting up in bed, no distress SKIN: Mild pallor. Pale conjunctiva. No rashes. Large ecchymosis covering left forearm and distal 1/3 of left upper arm on posteromedial side. Ecchymosis of right mid-arm, left hip. These are resolving from prior exams. Cool and dry. Stage 2 sacral decubitus ulcer right buttock near midline. Stage 1 pressure ulcer right upper back, b/l heels. CARDIOVASCULAR: NRRR. Normal S1/S2. No MRG RESPIRATORY: CTAB, good air entry, minimal crackles MUSCULOSKELETAL: Small superficial abrasion on dorsal aspect of middle finger. Slightly erythematous but evidence of cellulitis or abscess. Full ROM. 1+ edema of BLE to just above ankles (sitting up with legs dependent). Pitting edema up to shins. NEUROLOGICAL: Awake and alert. Well oriented. (Chato Culp MD R2) A/P Assessment and Plan 76 year old female with PMH of DM, AFib, COPD, CKD initially presented with DKA , rhabdomyolysis, and sepsis, now with resolved DKA, but now with acute renal failure and requiring hemodialysis. sdw Dr. Kaylan barone Discharge Planning Will need rehabilitation/SNF placement on discharge. Palliative care is involved. She wants aggressive care for the time being. (Chato Culp MD R2) Attending Attestation Patient seen and examined, discussed with resident team. I agree with assessment and management as documented and discussed with me. Pt resting comfortably in room. Continue current management. Anticipate PermaCath tomorrow and then D/C to SNF once able to confirm MCR coverage of outpt dialysis. (Esperanza Barone MD) Problem List: (1) Anemia Status: Acute Plan: Acute on chronic anemia. Baseline anemia likely due to kidney disease. Acute anemia etiology unclear. Hgb dropped from 7.9 to 6.5 in one day. Repeat this morning is 7.3. - Hemoccult test. - 1 unit PRBC ordered. - Protonix 40 mg IV daily. - Will need more extensive workup and intervention if she proves to have acute blood loss. (2) Acute on chronic kidney failure Status: Acute Plan: Likely multifactorial etiology, including rhabdomyolysis, ATN, cardiogenic. Creatinine reached a peak of 6.19 with BUN of 82, with decreasing urinary output and increasing potassium level, and decision was made to initiate hemodialysis. Creatinine up to 3.26 today, BUN of 27. Urine output 650. Pitting edema present. - Nephrology on board, appreciate assistance - Hemodialysis per nephrology recs, receiving treatment today. - Will likely need PermCath for outpatient dialysis. - Monitor I&O's, urine output, electrolytes - Avoid nephrotoxic agents - Renally dose medications - Monitor electrolytes - Monitor kidney function/urine output (3) Chronic obstructive lung disease Status: Acute Plan: Lungs now clear to auscultation. Sx could have been due to COPD exacerbation versus cardiac wheezing from CHF/pulmonary fluid overload. Lasix also seems to help. - DuoNeb treatments q4hrs - Prednisone and azithromycin completed - Continue incentive spirometer, EZ Pap - Monitor fluid balance (4) CHF, chronic Status: Chronic Plan: History of congestive heart failure, with possible acute exacerbation with fluid overload, mild basilar crackles. SOB now resolving. - Follow clinically, additional Lasix/Bumex if indicated - Continue Lopressor from home - Monitor fluid status, daily I's and O's and weights (5) Atrial fibrillation Status: Chronic Plan: Rate controlled. Has ICD in place. - Cardiology on board, appreciate assistance - Resumed Eliquis - Continue aspirin and Plavix (6) Coronary artery disease Status: Chronic Plan: Presented with elevated troponin and T-wave flattening and has a history of coronary artery disease. Had negative cardiac PET in 2015. No chest pain currently. - Cardiology on board, appreciate assistance - Continue aspirin and Plavix - Continue beta dex - Added isosorbide dinitrate 10 mg PO daily to treat probable anginal symptoms - Stress test in the future as an outpatient. (7) Pressure ulcer Status: Acute Plan: See physical exam; several lesions noted on presentation to ICU. Do not appear acutely infected. - Wound care nurse consulted, appreciate recommendations - Topical ointments to promote healing - Air mattress - Rotate patient every 2 hours - Monitor clinically (8) Depressed Status: Acute Plan: Significant depression with recent loss of family member. Also with significant weight loss. Symptoms seem to be improving, but she is upset about her current health status. Appetite has improved and she is eating well. Now on Remeron, moods appear much improved from admission. Still trying to encourage good nutrition, giving Ensure as a supplement. - Remeron 15 mg HS for depression and appetite stimulation (9) FEN/PPX Status: Acute Plan: Fluids: With dialysis. Monitor fluid status routinely. Electrolytes: Monitor Nutrition: Renal diet, mechanical soft consistency per speech therapy DVT: Resumed home Eliquis (Chato Culp MD R2) Problem Qualifiers (1) Atrial fibrillation: Qualified Code: I48.2 - Chronic atrial fibrillation (2) Coronary artery disease: Qualified Code: I25.118 - Coronary artery disease of [place] artery of [place] heart with stable angina pectoris Chato Culp MD R2 Dec 04, 2016 11:18 Esperanza Barone MD Dec 04, 2016 16:38
[2016-12-04] MEDS: EPOETIN ALFA 10,000 UNITS/ML VIAL IV SCH (12:04)
[2016-12-04] MEDS: GENTAMICIN SULFATE (DIALYSIS USE ONLY) 20 MG/2 ML VIAL IV PRN (12:04)
[2016-12-04] MEDS: HEPARIN SODIUM - IV 10,000 UNITS/10 ML VIAL PRN (12:04)
[2016-12-04 12:40] LABS: BASOPHIL % 0.4 % (0.0-2.0); EOSINOPHIL # 0.1 TH/MM3 (0-0.4); EOSINOPHIL % 1.5 % (0.0-4.0); HEMATOCRIT 24.1 % (35.0-46.0); HEMO FLAGS DIFF FINAL; LYMPH % 14.2 % (9.0-44.0); LYMPHOCYTE # 0.9 TH/MM3 (1.0-4.8); MEAN CELL VOLUME 81.9 FL (80.0-100.0); MEAN CORPUSCULAR HEMOGLOBIN 28.3 PG (27.0-34.0); MEAN CORPUSCULAR HGB CONC 34.6 % (32.0-36.0); MONO % 7.9 % (0.0-8.0); PLATELET COUNT 138 TH/MM3 (150-450); RED BLOOD COUNT 2.94 MIL/MM3 (4.00-5.30); RED CELL DISTRIBUTION WIDTH 14.8 % (11.6-17.2); WHITE BLOOD COUNT 6.6 TH/MM3 (4.0-11.0)
[2016-12-04] MEDS: ACETAMINOPHEN 500 MG CPLT PO PRN (16:01)
--- NOTE | 2016-12-04 17:24 | HHI.NPPN ---
Subjective History of Present Illness This patient is a 76-year-old female. Patient is a poor historian and history primarily obtained from the records. According to the records I reviewed the patient has a history of diabetes mellitus, hypertension as well as HIV. Infectious disease is currently in consultation as well as critical care. The patient was admitted to this institution on November 19, 2016 after being found "down" in her apartment. On presentation to the hospital she was noted to have a blood sugar of 957 with a creatinine of 2.68 and initially a sodium of 133 as well as a total CO2 on BMP of 10.6. Beta hydroxybutyrate was elevated. Patient has been treated for DKA and serum sodium level as expected has increased as a glucose level has dropped. Creatinine level is slightly improved today at 2.56. There is also evidence of rhabdomyolysis on presentation with significantly elevated CK level and a urinalysis positive for large amount of blood but minimal rbc. Of interest patient was taking Crestor as an outpatient. Interval History Patient sitting in a chair. No verbal complaints. Review of Systems General Constitutional: Fatigue Respiratory Lungs: SOB Gastrointestinal GI Remarks Nausea, anorexia Objective Data Data 12/03/16 12/04/16 19:00 07:00 Intake Total 720 ml 360 ml Output Total 650 ml Balance 720 ml -290 ml Intake Oral 720 ml 360 ml Output Urine Total 650 ml # Voids 1 # Bowel Movements 1 0 Vital Signs Date Time Temp Pulse Resp B/P Pulse Ox O2 Delivery O2 Flow Rate FiO2 12/04/16 17:20 99.1 78 19 124/60 96 12/04/16 17:01 17 12/04/16 12:00 97.0 72 19 139/59 95 12/04/16 09:27 17 12/04/16 09:07 Nasal Cannula 3.00 12/04/16 08:00 97.4 75 19 127/60 96 12/04/16 00:05 96.8 75 20 144/62 97 12/03/16 20:00 98.1 74 20 103/52 96 -: 12/04/16 1215 12/04/16 0352 Tubes & Lines: Vas-Cath Physical Exam General Appearance: No Acute Distress, Pale Appearance Remarks Appears to be mildly dyspneic. Pulmonary Resp Exam: Clear Bilaterally, Breath Sounds Equal Cardiology CV Exam: Regular, Normal Sinus Rhythm Gastrointestinal/Abdomen GI Exam: Soft, Non-Tender Integumentary Skin Exam: Clear, Warm Extremeties Extremities Exam: Trace Edema (left lower extremity), Moderate Edema (right lower extremity site of old injury and chronic), Pitting Edema, Dependent Edema Neurologic Neuro Exam: Alert, Awake, Speech Clear, Moving All Extremities Psychiatric Psych Exam: Appropriate Responses Assessment/Plan Discussed Condition With: Patient Problem List: (1) PRATIMA (acute kidney injury) Plan: Unfortunately patient still has not regained sufficient renal function to discontinue dialysis with worsening azotemia today. Status post dialysis. Will convert Vas-Cath the PermCath outpatient dialysis. Patient clear for discharge from renal point of view if outpatient dialysis can be performed from an insurance point of view as the patient has acute renal insufficiency as opposed to establish end-stage renal disease. This was discussed with primary care physician. Dialysis unit has been notified as well as the rn case management in this hospital. If patient discharge will monitor renal indices weekly to determine whether or not sufficient renal recovery is occurring to discontinue dialysis as discussed with the patient.. Medications should be adjusted for the patient's estimated GFR if clinically indicated. Avoid agents with significant potential for nephrotoxicity possible including NSAIDs for analgesia, iodine contrast agents. Gadolinium is contraindicated if the GFR is below 30. (2) Rhabdomyolysis Plan: Improved. Most likely was secondary to compression injury while patient was on the floor. Patient was on a statin drug i.e. Crestor so uncertain to what degree this may have played a role also. (3) CKD (chronic kidney disease) stage 3, GFR 30-59 ml/min Plan: Secondary to nephrosclerosis of hypertension and aging. (4) Vitamin D deficiency Plan: Vitamin D supplementation as ordered. (5) Congestive heart failure Plan: Continue by mouth furosemide and dialysis as indicated for fluid removal. Plan The exam, history, and the medical decision-making described in the above note were completed with the assistance of the [facility]. I reviewed and agree with the findings presented. Problem Qualifiers (1) Rhabdomyolysis: Qualified Code: M62.82 - Non-traumatic rhabdomyolysis Mario Valdes MD Dec 04, 2016 17:24
[2016-12-04] MEDS: MIRTAZAPINE 15 MG TAB PO SCH (20:58)
[2016-12-04] MEDS: DONEPEZIL HCL 5 MG TAB PO SCH (20:58)
[2016-12-05] VITALS (7 sets, daily range): BP systolic 110–136; BP diastolic 58–79; PULSE 63–87; RESP 16–20; TEMP 96.9–98.7; O2SAT 93–99
[2016-12-05] MEDS: RESP: ALBUTEROL 2.5 MG/3 ML NEB (PRN) INH ×4 (03:48→23:49)
[2016-12-05] MEDS: MEDIUM DOSE INSULIN NOVOLOG SUPPLEMENTAL SCALE SQ SCH ×6 (04:00→21:25)
[2016-12-05] MEDS: CHLORHEXIDINE GLUCONATE 2 % 1 PACK (2 CLOTHS) TOP SCH (04:00)
[2016-12-05 05:41] LABS: HEMATOCRIT 23.6 % (35.0-46.0); REVIEW FLAG FINAL
[2016-12-05 06:18] LABS: BICARBONATE 32.8 MEQ/L (21.0-32.0); POTASSIUM 3.8 MEQ/L (3.5-5.1)
[2016-12-05] MEDS: ISOSORBIDE MONONITRATE 30 MG TAB PO SCH (06:46)
[2016-12-05] MEDS: CHOLECALCIFEROL (VIT D3) 1000 UNIT TAB PO SCH (07:45)
[2016-12-05] MEDS: VITAMIN B CMPLX/VITC/FOLIC AC CAP PO SCH (07:45)
[2016-12-05] MEDS: CLOPIDOGREL 75 MG TAB PO SCH (07:46)
[2016-12-05] MEDS: FUROSEMIDE 20 MG TAB PO SCH ×2 (07:46→21:24)
[2016-12-05] MEDS: APIXABAN 2.5 MG TABLET PO SCH ×2 (07:47→21:25)
[2016-12-05] MEDS: PANTOPRAZOLE SODIUM 40 MG VIAL IV SCH (07:47)
[2016-12-05] MEDS: METOPROLOL TARTRATE 25 MG TAB PO SCH ×2 (07:47→21:25)
[2016-12-05] MEDS: INSULIN DETEMIR 100 UNITS/ML VIAL SQ SCH ×2 (07:48→21:26)
[2016-12-05] MEDS: NYSTATIN 100,000 UNIT/GM CREAM 15 GM TOPICAL SCH ×2 (07:49→21:27)
[2016-12-05] MEDS: MUPIROCIN 2% OINT 22 GM TUBE TOPICAL SCH ×2 (07:49→21:26)
[2016-12-05] MEDS: DOCUSATE SODIUM 50 MG/SENNA 8.6 MG TAB PO PRN (11:31)
--- NOTE | 2016-12-05 12:10 | PD.CARD.PN ---
Subjective Subjective Remarks no chest pain or sob, constipated Objective Medications Administered Medications Medications (Trade) Dose Ordered Sig/Francesca Route PRN Reason Start Time Stop Time Status Last Admin Dose Admin Sodium Chloride (NS Flush) 2 ml UNSCH PRN IVF FLUSH AFTER USING IV ACCESS 11/19/16 17:00 11/19/16 18:58 Pantoprazole Sodium (Protonix Inj) 40 mg DAILY IV 11/20/16 09:00 12/05/16 07:47 Ondansetron HCl (Zofran Inj) 4 mg Q6H PRN IV NAUSEA OR VOMITING 11/20/16 04:15 11/21/16 08:57 Miscellaneous Information 1 Q361D XX 11/20/16 04:15 11/20/16 04:15 Chlorhexidine Gluconate (Chlorhexidine 2% Cloth) Taper DAILY@04 TOP 11/21/16 04:00 11/17/17 03:59 11/23/16 04:00 Nystatin (Mycostatin Cream) 1 applic Q12HR TOPICAL 11/20/16 09:00 12/05/16 07:49 Clopidogrel Bisulfate (Plavix) 75 mg DAILY PO 11/21/16 09:00 12/05/16 07:46 Dextrose (D50w (Vial) Inj) 25 ml UNSCH PRN IV PUSH HYPOGLYCEMIA - SEE COMMENTS 11/20/16 17:00 11/29/16 05:19 Insulin Aspart (NovoLOG SUPPLEMENTAL SCALE) 1 Q4HR SQ 11/20/16 16:00 12/05/16 11:31 Cholecalciferol (Vitamin D3) 2,000 units DAILY PO 11/21/16 14:15 12/05/16 07:45 Metoprolol Tartrate (Lopressor) 25 mg Q12HR PO 11/21/16 14:00 12/05/16 07:47 Mirtazapine (Remeron) 15 mg HS PO 11/23/16 21:00 12/04/16 20:58 Donepezil HCl (Aricept) 5 mg HS PO 11/23/16 21:00 12/04/16 20:58 Insulin Detemir (Levemir Inj) 5 units Q12HR SQ 11/24/16 09:00 12/05/16 07:48 Mupirocin (Bactroban 2% Oint) 1 applic Q12HR TOPICAL 11/24/16 10:00 12/05/16 07:49 Acetaminophen (Tylenol) 500 mg Q4H PRN PO PAIN SCALE 3 TO 6 11/24/16 13:30 12/04/16 16:01 Oxycodone HCl 5 mg 5 mg Q6H PRN PO PAIN SCALE 7 TO 10 11/24/16 13:30 12/04/16 08:27 Sodium Chloride (NS 1000 ml Inj) 1,000 ml @ 0 mls/hr Q0M PRN IV For Prime & Rinse Back 11/25/16 11:55 12/02/16 12:10 Heparin Sodium (Porcine) (Heparin Inj) 8,000 units UNSCH PRN IVF WITH DIALYSIS 11/25/16 12:00 11/28/16 11:35 Albumin Human (Albumin 25% Inj) 25 gm UNSCH PRN IV WITH DIALYSIS 11/25/16 12:00 11/29/16 11:32 Heparin Sodium (Porcine) (Heparin Inj) UNSCH PRN .XX WITH DIALYSIS 11/25/16 12:00 12/04/16 12:04 Gentamicin Sulfate (Gentamicin (Dialysis) Inj) 20 mg UNSCH PRN IV WITH DIALYSIS 11/25/16 12:00 12/04/16 12:04 Acetaminophen (Tylenol) 650 mg UNSCH PRN PO for headach, pain, temp > 101F 11/25/16 12:00 11/27/16 21:21 Ergocalciferol (Drisdol) 50,000 units Q7D PO 11/26/16 07:00 12/03/16 06:04 Apixaban (Eliquis) 2.5 mg BID PO 11/27/16 21:00 12/05/16 07:47 Vitamin B Complex/ Vit C/Folic Acid (Nephrocaps) 1 cap DAILY PO 11/30/16 09:00 12/05/16 07:45 Furosemide (Lasix) 60 mg BID PO 11/29/16 21:00 12/05/16 07:46 Isosorbide Mononitrate (Imdur) 30 mg DAILY@07 PO 12/02/16 07:00 12/05/16 06:46 Senna/Docusate Sodium (Marlene-Colace) 2 tab BID PRN PO CONSTIPATION 12/05/16 12:00 12/05/16 11:31 Vital Signs / I&O Vital Signs Date Time Temp Pulse Resp B/P Pulse Ox O2 Delivery O2 Flow Rate FiO2 12/05/16 08:00 97.6 87 19 135/79 99 12/05/16 03:50 97 Nasal Cannula 3.00 12/05/16 00:00 98.0 72 20 110/58 97 12/04/16 23:52 95 Nasal Cannula 3.00 12/04/16 20:00 98.5 77 20 112/56 95 12/04/16 17:20 99.1 78 19 124/60 96 12/04/16 17:01 17 I/O 12/04/16 12/04/16 12/04/16 12/05/16 12/05/16 12/05/16 07:00 15:00 23:00 07:00 15:00 23:00 Intake Total 120 ml 1080 ml 360 ml 240 ml 120 ml Output Total 350 ml 2900 ml 600 ml 350 ml Balance -230 ml -1820 ml -240 ml -110 ml 120 ml Intake Oral 120 ml 1080 ml 360 ml 240 ml 120 ml IV Total 0 ml 0 ml 0 ml Output Urine Total 350 ml 400 ml 600 ml 350 ml Hemodialysis 2500 ml # Bowel Movements 0 2 0 0 Physical Exam GENERAL: Well-nourished, well-developed patient in no apparent distress. SKIN: Warm and dry. NECK: JVD normal - less than or equal to 5 cm H20. CARDIOVASCULAR: Regular rate and rhythm without murmurs, gallops or rubs. RESPIRATORY: Normal breath sounds - equal bilaterally. No accessory muscle use. No wheezes, rales or rubs. PERIPHERY: No cyanosis or edema. Laboratory Laboratory Tests Test 12/04/16 12/05/16 12:15 04:13 White Blood Count 6.6 TH/MM3 Red Blood Count 2.94 MIL/MM3 Hemoglobin 8.3 GM/DL 8.0 GM/DL Hematocrit 24.1 % 23.6 % Mean Corpuscular Volume 81.9 FL Mean Corpuscular Hemoglobin 28.3 PG Mean Corpuscular Hemoglobin 34.6 % Concent Red Cell Distribution Width 14.8 % Platelet Count 138 TH/MM3 Mean Platelet Volume 8.3 FL Neutrophils (%) (Auto) 76.0 % Lymphocytes (%) (Auto) 14.2 % Monocytes (%) (Auto) 7.9 % Eosinophils (%) (Auto) 1.5 % Basophils (%) (Auto) 0.4 % Neutrophils # (Auto) 5.0 TH/MM3 Lymphocytes # (Auto) 0.9 TH/MM3 Monocytes # (Auto) 0.5 TH/MM3 Eosinophils # (Auto) 0.1 TH/MM3 Basophils # (Auto) 0.0 TH/MM3 CBC Comment DIFF FINAL Differential Comment Sodium Level 135 MEQ/L Potassium Level 3.8 MEQ/L Chloride Level 97 MEQ/L Carbon Dioxide Level 32.8 MEQ/L Anion Gap 5 MEQ/L Blood Urea Nitrogen 20 MG/DL Creatinine 2.74 MG/DL Estimat Glomerular Filtration 17 ML/MIN Rate Random Glucose 96 MG/DL Calcium Level 7.7 MG/DL Assessment and Plan Assessment and Plan Doing better denies cp or sob , discussed with Dr Jha by text will hold eliquis for permacath. Carter Ashley MD Dec 05, 2016 12:10
--- NOTE | 2016-12-05 14:10 | HHI.FPPN ---
Subjective Remarks Sitting up in bed. Reports breathing is doing good. No chest pain or shortness of breath. No abdominal pain, nausea, or vomiting. She is anxious this morning regarding her need for continued dialysis, and about the PermCath procedure. ( Chato Culp MD R2) Objective Vitals Vital Signs Date Time Temp Pulse Resp B/P Pulse Ox O2 Delivery O2 Flow Rate FiO2 12/05/16 12:00 97.8 63 19 126/67 96 12/05/16 08:00 97.6 87 19 135/79 99 12/05/16 03:50 97 Nasal Cannula 3.00 12/05/16 00:00 98.0 72 20 110/58 97 12/04/16 23:52 95 Nasal Cannula 3.00 12/04/16 20:00 98.5 77 20 112/56 95 12/04/16 17:20 99.1 78 19 124/60 96 12/04/16 17:01 17 I/O 12/04/16 12/04/16 12/04/16 12/05/16 12/05/16 12/05/16 07:00 15:00 23:00 07:00 15:00 23:00 Intake Total 120 ml 1080 ml 360 ml 240 ml 120 ml Output Total 350 ml 2900 ml 600 ml 350 ml Balance -230 ml -1820 ml -240 ml -110 ml 120 ml Intake Oral 120 ml 1080 ml 360 ml 240 ml 120 ml IV Total 0 ml 0 ml 0 ml Output Urine Total 350 ml 400 ml 600 ml 350 ml Hemodialysis 2500 ml # Bowel Movements 0 2 0 0 (Chato Culp MD R2) Result Diagram: 12/05/16 0413 12/05/16 041 Objective Remarks GENERAL: Sitting up in bed, no distress SKIN: Mild pallor. Pale conjunctiva. No rashes. Large ecchymosis covering left forearm and distal 1/3 of left upper arm on posteromedial side. Ecchymosis of right mid-arm, left hip. These are resolving from prior exams. Cool and dry. Stage 2 sacral decubitus ulcer right buttock near midline. Stage 1 pressure ulcer right upper back, b/l heels. CARDIOVASCULAR: NRRR. Normal S1/S2. No MRG RESPIRATORY: CTAB, good air entry, minimal crackles MUSCULOSKELETAL: Small superficial abrasion on dorsal aspect of middle finger. Slightly erythematous but evidence of cellulitis or abscess. Full ROM. 1+ edema of BLE to just above ankles (sitting up with legs dependent). Pitting edema up to shins. NEUROLOGICAL: Awake and alert. Well oriented. (Chato Culp MD R2) A/P Assessment and Plan 76 year old female with PMH of DM, AFib, COPD, CKD initially presented with DKA , rhabdomyolysis, and sepsis, now with resolved DKA, but now with acute renal failure and requiring hemodialysis. sdw Dr. Talamantes Discharge Planning Will need rehabilitation/SNF placement on discharge. Palliative care is involved. She wants aggressive care for the time being. Pending PermCath and setting up outpatient dialysis. (Chato Culp MD R2) Attending Attestation Patient seen, examined, and discussed with resident team. I agree with assessment and management as documented and discussed with me. Pt feeling anxious as described above. For PermaCath today, per nephrology. Await confirmation of outpatient dialysis prior to discharge to rehab. (Esperanza Talamantes MD) Problem List: (1) Acute on chronic kidney failure Status: Acute Plan: Likely multifactorial etiology, including rhabdomyolysis, ATN, cardiogenic. Creatinine reached a peak of 6.19 with BUN of 82, with decreasing urinary output and increasing potassium level, and decision was made to initiate hemodialysis. Creatinine up to 2.74 today, BUN of 20. Urine output 650. Pitting edema present. - Nephrology on board, appreciate assistance - Hemodialysis per nephrology recs, will need outpatient dialysis. - PermCath for outpatient dialysis. - Monitor I&O's, urine output, electrolytes - Avoid nephrotoxic agents - Renally dose medications - Monitor electrolytes - Monitor kidney function/urine output (2) Chronic obstructive lung disease Status: Chronic Plan: Lungs now clear to auscultation. Sx could have been due to COPD exacerbation versus cardiac wheezing from CHF/pulmonary fluid overload. Lasix also seems to help. - DuoNeb treatments q4hrs - Prednisone and azithromycin completed - Continue incentive spirometer, EZ Pap - Monitor fluid balance (3) CHF, chronic Status: Chronic Plan: History of congestive heart failure, with possible acute exacerbation with fluid overload, mild basilar crackles. SOB now resolving. - Follow clinically, additional Lasix/Bumex if indicated - Continue Lopressor from home - Monitor fluid status, daily I's and O's and weights (4) Atrial fibrillation Status: Chronic Plan: Rate controlled. Has ICD in place. - Cardiology on board, appreciate assistance - Resumed Eliquis - Continue aspirin and Plavix (5) Coronary artery disease Status: Chronic Plan: Presented with elevated troponin and T-wave flattening and has a history of coronary artery disease. Had negative cardiac PET in 2015. No chest pain currently. - Cardiology on board, appreciate assistance - Continue aspirin and Plavix - Continue beta dex - Added isosorbide dinitrate 10 mg PO daily to treat probable anginal symptoms - Stress test in the future as an outpatient. (6) Pressure ulcer Status: Acute Plan: See physical exam; several lesions noted on presentation to ICU. Do not appear acutely infected. - Wound care nurse consulted, appreciate recommendations - Topical ointments to promote healing - Air mattress - Rotate patient every 2 hours - Monitor clinically (7) Depressed Status: Acute Plan: Significant depression with recent loss of family member. Also with significant weight loss. Symptoms seem to be improving, but she is upset about her current health status. Appetite has improved and she is eating well. Now on Remeron, moods appear much improved from admission. Still trying to encourage good nutrition, giving Ensure as a supplement. - Remeron 15 mg HS for depression and appetite stimulation (8) FEN/PPX Status: Acute Plan: Fluids: With dialysis. Monitor fluid status routinely. Electrolytes: Monitor Nutrition: Renal diet, mechanical soft consistency per speech therapy DVT: Resumed home Eliquis (Chato Culp MD R2) Problem Qualifiers (1) Atrial fibrillation: Qualified Code: I48.2 - Chronic atrial fibrillation (2) Coronary artery disease: Qualified Code: I25.118 - Coronary artery disease of [place] artery of [place] heart with stable angina pectoris Chato Culp MD R2 Dec 05, 2016 14:09 Esperanza Talamantes MD Dec 05, 2016 21:23
--- NOTE | 2016-12-05 16:47 | HHI.NPPN ---
Subjective History of Present Illness This patient is a 76-year-old female. Patient is a poor historian and history primarily obtained from the records. According to the records I reviewed the patient has a history of diabetes mellitus, hypertension as well as HIV. Infectious disease is currently in consultation as well as critical care. The patient was admitted to this institution on November 19, 2016 after being found "down" in her apartment. On presentation to the hospital she was noted to have a blood sugar of 957 with a creatinine of 2.68 and initially a sodium of 133 as well as a total CO2 on BMP of 10.6. Beta hydroxybutyrate was elevated. Patient has been treated for DKA and serum sodium level as expected has increased as a glucose level has dropped. Creatinine level is slightly improved today at 2.56. There is also evidence of rhabdomyolysis on presentation with significantly elevated CK level and a urinalysis positive for large amount of blood but minimal rbc. Of interest patient was taking Crestor as an outpatient. Interval History Patient with no verbal complaints. Review of Systems General Constitutional: Fatigue Respiratory Lungs: SOB Gastrointestinal GI Remarks Nausea, anorexia Objective Data Data 12/04/16 12/05/16 19:00 07:00 Intake Total 1080 ml 600 ml Output Total 2900 ml 950 ml Balance -1820 ml -350 ml Intake Oral 1080 ml 600 ml IV Total 0 ml 0 ml Output Urine Total 400 ml 950 ml Hemodialysis 2500 ml # Bowel Movements 2 0 Vital Signs Date Time Temp Pulse Resp B/P Pulse Ox O2 Delivery O2 Flow Rate FiO2 12/05/16 12:00 97.8 63 19 126/67 96 12/05/16 08:00 97.6 87 19 135/79 99 12/05/16 03:50 97 Nasal Cannula 3.00 12/05/16 00:00 98.0 72 20 110/58 97 12/04/16 23:52 95 Nasal Cannula 3.00 12/04/16 20:00 98.5 77 20 112/56 95 12/04/16 17:20 99.1 78 19 124/60 96 12/04/16 17:01 17 -: 12/05/16 0413 12/05/163 Tubes & Lines: Vas-Cath Physical Exam General Appearance: No Acute Distress, Pale Appearance Remarks Appears to be mildly dyspneic. Pulmonary Resp Exam: Clear Bilaterally, Breath Sounds Equal Cardiology CV Exam: Regular, Normal Sinus Rhythm Gastrointestinal/Abdomen GI Exam: Soft, Non-Tender Integumentary Skin Exam: Clear, Warm Extremeties Extremities Exam: Trace Edema (left lower extremity), Moderate Edema (right lower extremity site of old injury and chronic), Pitting Edema, Dependent Edema Neurologic Neuro Exam: Alert, Awake, Speech Clear, Moving All Extremities Psychiatric Psych Exam: Appropriate Responses Assessment/Plan Discussed Condition With: Patient Problem List: (1) PRATIMA (acute kidney injury) Plan: Patient scheduled for dialysis tomorrow. Unfortunately PermCath would not be placed as the patient is on Plavix and this has to be held for a few days. We' ll continue to monitor renal function over the weekend to determine if dialysis needs to be continued. Medications should be adjusted for the patient's estimated GFR if clinically indicated. Avoid agents with significant potential for nephrotoxicity possible including NSAIDs for analgesia, iodine contrast agents. Gadolinium is contraindicated if the GFR is below 30. (2) Rhabdomyolysis Plan: Improved. Most likely was secondary to compression injury while patient was on the floor. Patient was on a statin drug i.e. Crestor so uncertain to what degree this may have played a role also. (3) CKD (chronic kidney disease) stage 3, GFR 30-59 ml/min Plan: Secondary to nephrosclerosis of hypertension and aging. (4) Vitamin D deficiency Plan: Vitamin D supplementation as ordered. (5) Congestive heart failure Plan: Continue by mouth furosemide and dialysis as indicated for fluid removal. Problem Qualifiers (1) Rhabdomyolysis: Qualified Code: M62.82 - Non-traumatic rhabdomyolysis Mario Valdes MD Dec 05, 2016 16:47
[2016-12-05] MEDS: DONEPEZIL HCL 5 MG TAB PO SCH (21:24)
[2016-12-05] MEDS: MIRTAZAPINE 15 MG TAB PO SCH (21:25)
[2016-12-06] VITALS (7 sets, daily range): BP systolic 109–136; BP diastolic 55–79; PULSE 65–78; RESP 16–18; TEMP 96–99.1; O2SAT 92–94
[2016-12-06] MEDS: MEDIUM DOSE INSULIN NOVOLOG SUPPLEMENTAL SCALE SQ SCH ×6 (00:48→20:00)
[2016-12-06] MEDS: DOCUSATE SODIUM 50 MG/SENNA 8.6 MG TAB PO PRN (00:54)
[2016-12-06] MEDS: CHLORHEXIDINE GLUCONATE 2 % 1 PACK (2 CLOTHS) TOP SCH (04:00)
[2016-12-06] MEDS: RESP: ALBUTEROL 2.5 MG/3 ML NEB (PRN) INH ×2 (04:17→07:40)
[2016-12-06] MEDS: ISOSORBIDE MONONITRATE 30 MG TAB PO SCH (06:00)
[2016-12-06 06:06] LABS: HEMATOCRIT 24.6 % (35.0-46.0); REVIEW FLAG FINAL
[2016-12-06 06:38] LABS: BICARBONATE 31.9 MEQ/L (21.0-32.0); POTASSIUM 3.8 MEQ/L (3.5-5.1)
[2016-12-06] MEDS: COLLAGENASE OINT 30 GM TUBE TOPICAL SCH (08:26)
[2016-12-06] MEDS: VITAMIN B CMPLX/VITC/FOLIC AC CAP PO SCH (08:27)
[2016-12-06] MEDS: CHOLECALCIFEROL (VIT D3) 1000 UNIT TAB PO SCH (08:27)
[2016-12-06] MEDS: FUROSEMIDE 20 MG TAB PO SCH ×2 (08:27→22:41)
[2016-12-06] MEDS: APIXABAN 2.5 MG TABLET PO SCH ×2 (08:27→22:28)
[2016-12-06] MEDS: METOPROLOL TARTRATE 25 MG TAB PO SCH ×2 (08:27→22:41)
[2016-12-06] MEDS: PANTOPRAZOLE SODIUM 40 MG VIAL IV SCH (08:28)
[2016-12-06] MEDS: INSULIN DETEMIR 100 UNITS/ML VIAL SQ SCH ×2 (08:28→21:00)
[2016-12-06] MEDS: MUPIROCIN 2% OINT 22 GM TUBE TOPICAL SCH ×2 (08:33→22:34)
[2016-12-06] MEDS: NYSTATIN 100,000 UNIT/GM CREAM 15 GM TOPICAL SCH ×2 (08:33→22:34)
--- NOTE | 2016-12-06 08:48 | HHI.FPPN ---
Subjective Remarks Patient seen and examined. BEBA overnight.. VSSAF. O2 sats stable 93-49% on 2L via NC. Still reports dyspnea and feels like she needs the breathing treatments more often. No other complaints. No chest pain, palpitations, diarrhea, or abdominal pain. (Edna Jansen MD R3) Objective Vitals Vital Signs Date Time Temp Pulse Resp B/P Pulse Ox O2 Delivery O2 Flow Rate FiO2 12/06/16 08:00 96.0 65 18 136/60 94 12/06/16 07:41 93 Nasal Cannula 2.00 12/06/16 00:19 98.6 68 16 112/55 93 12/05/16 23:50 93 Nasal Cannula 2.00 12/05/16 20:27 96.9 75 16 136/64 94 12/05/16 16:00 98.7 70 20 126/60 95 12/05/16 12:00 97.8 63 19 126/67 96 I/O 12/05/16 12/05/16 12/05/16 12/06/16 12/06/16 12/06/16 07:00 15:00 23:00 07:00 15:00 23:00 Intake Total 240 ml 120 ml 480 ml 480 ml 0 ml Output Total 350 ml Balance -110 ml 120 ml 480 ml 480 ml 0 ml Intake Oral 240 ml 120 ml 480 ml 480 ml IV Total 0 ml 0 ml 0 ml Output Urine Total 350 ml # Voids 1 1 # Bowel Movements 0 1 (Edna Jansen MD R3) Result Diagram: 12/06/16 0454 12/06/16 0454 Imaging Last Impressions Chest X-Ray 11/27/16 0000 Signed Impressions: Service Date/Time: November 18:11 - CONCLUSION: Volume overload and slight worsening of pulmonary edema. Alton Jimenez MD Catheter Placement X-Ray 11/25/16 0000 Signed Impressions: Service Date/Time: Friday, November 25, 2016 00:00 - CONCLUSION: Uncomplicated line placement as above. Postprocedural chest radiograph will be obtained to confirm position. Chad Nelson MD Abdomen Ultrasound 11/21/16 0000 Signed Impressions: Service Date/Time: Monday, November 21, 2016 16:04 - CONCLUSION: 1. Dilated common bile duct measuring 11 mm. Correlation with alkaline phosphatase and bilirubin level is suggested to rule out biliary obstruction. 2. Thick-walled stone-containing gallbladder with minimal pericholecystic fluid. If there is clinical concern for acute cholecystitis a hepatobiliary scan may be helpful to confirm cystic duct obstruction. 3. Mild hepatomegaly. 4. Small right pleural effusion. 5. Trace ascites. 6. Poor visualization of the pancreas, abdominal aorta and inferior vena cava secondary to shadowing bowel gas. Joey Rosenthal MD Pelvis X-Ray 11/19/16 0000 Signed Impressions: Service Date/Time: Saturday, November 19, 2016 18:23 - CONCLUSION: 1. Moderate degenerative changes involving the hip joints bilaterally. 2. Degenerative changes involving the lower lumbar spine. 3. No acute fracture or dislocation. Joey Rosetnhal MD Head CT 11/19/16 0000 Signed Impressions: Service Date/Time: Saturday, November 19, 2016 17:54 - CONCLUSION: No acute disease. Joey Rosenthal MD Cervical Spine CT 11/19/16 0000 Signed Impressions: Service Date/Time: Saturday, November 19, 2016 17:54 - CONCLUSION: 1. Extensive motion artifact particularly at C3 and C4 levels which limits interpretation of these levels. 2. Grade I retrolisthesis of C3 in relation to C4 and C2 as well as C4 in relation to C5. 3. Diffuse cervical spondylosis at C5-C6, C6- C7 and to a lesser extent at C4-C5 and C3-C4. 4. No acute fracture or prevertebral soft-tissue swelling. 5. Mild spinal stenosis at C5-C6. 6. Mild bilateral foraminal narrowing at C5-C6 and C6-C7 and to a lesser extent at C4- C5 and C3-C4. 7. Reversal of the normal cervical lordosis. Joey Rosenthal MD Objective Remarks GENERAL: Sitting up in bed, no distress SKIN: Mild pallor. No rashes. Large ecchymosis covering left forearm and distal 1/3 of left upper arm on posteromedial side. Ecchymosis of right mid-arm, left hip. These are resolving from prior exams. Cool and dry. Exam from previous days : Stage 2 sacral decubitus ulcer right buttock near midline. Stage 1 pressure ulcer right upper back, b/l heels. CARDIOVASCULAR: NRRR. Normal S1/S2. No MRG RESPIRATORY: CTAB, good air entry. No crackles noted on exam today. MUSCULOSKELETAL: Small superficial abrasion on dorsal aspect of middle finger. Slightly erythematous but evidence of cellulitis or abscess. Full ROM. 1+ edema of BLE to just above ankles (sitting up with legs dependent). Pitting edema up to shins. NEUROLOGICAL: Awake and alert. Well-oriented. (Edna Jansen MD R3) A/P Assessment and Plan 76 year old female with PMH of DM, AFib, COPD, CKD initially presented with DKA , rhabdomyolysis, and sepsis, now with resolved DKA, but now with acute renal failure and requiring hemodialysis. Awaiting for PermCath placement. sdw Dr. Talamantes and Dr. Kimbrough Discharge Planning Will need rehabilitation/SNF placement on discharge. Palliative care is involved. She wants aggressive care for the time being. Pending PermCath and setting up outpatient dialysis, likely early next week. (Edna Jansen MD R3) Attending Attestation Patient seen, examined and discussed with resident team. I agree with assessment and management as documented and discussed with me. Pt without significant complaints. Await PermCath placement as well as approval / arrangement of outpt dialysis. Anticipate possible discharge Thursday or Thursday. (Esperanza Talamantes MD) Problem List: (1) Acute on chronic kidney failure Status: Acute Plan: Likely multifactorial etiology, including rhabdomyolysis, ATN, cardiogenic. Creatinine reached a peak of 6.19 with BUN of 82, with decreasing urinary output and increasing potassium level, and decision was made to initiate hemodialysis. Creatinine up to 3.86 today, BUN of 28. Pitting edema present. - Nephrology on board, appreciate assistance - Hemodialysis , , Sat per nephrology recs, will need outpatient dialysis. - PermCath placement scheduled for Thursday. - Monitor I&O's, urine output, electrolytes - Avoid nephrotoxic agents - Renally dose medications - Monitor electrolytes - Monitor kidney function/urine output (2) Chronic obstructive lung disease Status: Chronic Plan: Lungs now clear to auscultation. Sx could have been due to COPD exacerbation versus cardiac wheezing from CHF/pulmonary fluid overload. Lasix also seems to help. - DuoNeb treatments scheduled q4hrs - Albuterol neb Q2hrs prn - Prednisone and azithromycin completed on 11/29 - Continue incentive spirometer, EZ Pap - Monitor fluid balance (3) CHF, chronic Status: Chronic Plan: Stable - Follow clinically - Continue Lopressor from home - Monitor fluid status, daily I's and O's and weights - If worsen, will add diuretics (4) Atrial fibrillation Status: Chronic Plan: Rate controlled. Has ICD in place. - Cardiology on board, appreciate assistance - Continue Eliquis. Hold anticoagulation on 12/08 for PermCath placement on 12/[address] Ashley - Plavix currently on hold (5) Coronary artery disease Status: Chronic Plan: Presented with elevated troponin and T-wave flattening and has a history of coronary artery disease. Had negative cardiac PET in 2014. No chest pain currently. - Cardiology on board, appreciate assistance - Continue medical management with BB and isosorbide dinitrate 10 mg PO daily to treat probable anginal symptoms - Plavix on hold for PermCath placement next week - Stress test in the future as an outpatient. (6) Pressure ulcer Status: Acute Plan: See physical exam; several lesions noted on presentation to ICU. Do not appear acutely infected. - Wound care nurse consulted, appreciate recommendations - Topical ointments to promote healing - Air mattress - Rotate patient every 2 hours - Monitor clinically (7) Depressed Status: Acute Plan: Significant depression with recent loss of family member. Also with significant weight loss. Symptoms seem to be improving, but she is upset about her current health status. Appetite has improved and she is eating well. Now on Remeron, moods appear much improved from admission. Still trying to encourage good nutrition, giving Ensure as a supplement. - Remeron 15 mg HS for depression and appetite stimulation (8) FEN/PPX Status: Acute Plan: Fluids: With dialysis. Monitor fluid status routinely. Electrolytes: Monitor Nutrition: Renal diet, mechanical soft consistency per speech therapy DVT: Eliquis (Edna Jansen MD R3) Problem Qualifiers (1) Atrial fibrillation: Qualified Code: I48.2 - Chronic atrial fibrillation (2) Coronary artery disease: Qualified Code: I25.118 - Coronary artery disease of [place] artery of [place] heart with stable angina pectoris Edna Jansen MD R3 Dec 06, 2016 08:48 Esperanza Talamantes MD Dec 06, 2016 13:40
[2016-12-06] MEDS: HEPARIN SODIUM - IV 10,000 UNITS/10 ML VIAL PRN (12:38)
[2016-12-06] MEDS: GENTAMICIN SULFATE (DIALYSIS USE ONLY) 20 MG/2 ML VIAL IV PRN (12:39)
[2016-12-06] MEDS: EPOETIN ALFA 10,000 UNITS/ML VIAL IV SCH (12:39)
[2016-12-06] MEDS: RESP: ALBUTEROL 2.5 MG/IPRATROPIUM 0.5 MG NEB (SCH) NEB ×3 (13:54→20:05)
--- NOTE | 2016-12-06 16:39 | HHI.NPPN ---
Subjective History of Present Illness This patient is a 76-year-old female. Patient is a poor historian and history primarily obtained from the records. According to the records I reviewed the patient has a history of diabetes mellitus, hypertension as well as HIV. Infectious disease is currently in consultation as well as critical care. The patient was admitted to this institution on November 19, 2016 after being found "down" in her apartment. On presentation to the hospital she was noted to have a blood sugar of 957 with a creatinine of 2.68 and initially a sodium of 133 as well as a total CO2 on BMP of 10.6. Beta hydroxybutyrate was elevated. Patient has been treated for DKA and serum sodium level as expected has increased as a glucose level has dropped. Creatinine level is slightly improved today at 2.56. There is also evidence of rhabdomyolysis on presentation with significantly elevated CK level and a urinalysis positive for large amount of blood but minimal rbc. Of interest patient was taking Crestor as an outpatient. Interval History Patient was seen postdialysis today. Feeling tired. Review of Systems General Constitutional: Fatigue Respiratory Lungs: SOB Gastrointestinal GI Remarks Nausea, anorexia Objective Data Data 12/05/16 12/06/16 19:00 07:00 Intake Total 120 ml 960 ml Balance 120 ml 960 ml Intake Oral 120 ml 960 ml IV Total 0 ml 0 ml # Voids 2 # Bowel Movements 1 Vital Signs Date Time Temp Pulse Resp B/P Pulse Ox O2 Delivery O2 Flow Rate FiO2 12/06/16 13:46 97.5 70 17 130/70 94 12/06/16 08:00 96.0 65 18 136/60 94 12/06/16 07:41 93 Nasal Cannula 2.00 12/06/16 00:19 98.6 68 16 112/55 93 12/05/16 23:50 93 Nasal Cannula 2.00 12/05/16 20:27 96.9 75 16 136/64 94 -: 12/06/16 0454 12/06/16 0454 Tubes & Lines: Vas-Cath Physical Exam General Appearance: No Acute Distress, Pale Appearance Remarks Appears to be mildly dyspneic. Pulmonary Resp Exam: Clear Bilaterally, Breath Sounds Equal Cardiology CV Exam: Regular, Normal Sinus Rhythm Gastrointestinal/Abdomen GI Exam: Soft, Non-Tender Integumentary Skin Exam: Clear, Warm Extremeties Extremities Exam: Trace Edema (left lower extremity), Moderate Edema (right lower extremity site of old injury and chronic), Pitting Edema, Dependent Edema Neurologic Neuro Exam: Alert, Awake, Speech Clear, Moving All Extremities Psychiatric Psych Exam: Appropriate Responses Assessment/Plan Discussed Condition With: Patient Problem List: (1) PRATIMA (acute kidney injury) Plan: Unfortunately no indication of significant improvement in renal function would worsening creatinine level just prior to dialysis today. I will plan for PermCath placement which hopefully can be placed either Thursday or Thursday. Next dialysis will be Thursday unless otherwise indicated, in-house or as an outpatient depending upon discharge date. Dialysis unit is expecting the patient and insurance has been approved. Medications should be adjusted for the patient's estimated GFR if clinically indicated. Avoid agents with significant potential for nephrotoxicity possible including NSAIDs for analgesia, iodine contrast agents. Gadolinium is contraindicated if the GFR is below 30. (2) Rhabdomyolysis Plan: Improved. Most likely was secondary to compression injury while patient was on the floor. Patient was on a statin drug i.e. Crestor so uncertain to what degree this may have played a role also. (3) CKD (chronic kidney disease) stage 3, GFR 30-59 ml/min Plan: Secondary to nephrosclerosis of hypertension and aging. (4) Vitamin D deficiency Plan: Vitamin D supplementation as ordered. (5) Congestive heart failure Plan: Continue by mouth furosemide and dialysis as indicated for fluid removal. Problem Qualifiers (1) Rhabdomyolysis: Qualified Code: M62.82 - Non-traumatic rhabdomyolysis Mario Valdes MD Dec 06, 2016 16:39
[2016-12-06] MEDS: MIRTAZAPINE 15 MG TAB PO SCH (22:27)
[2016-12-06] MEDS: DONEPEZIL HCL 5 MG TAB PO SCH (22:27)
[2016-12-07] VITALS (10 sets, daily range): BP systolic 96–126; BP diastolic 47–58; PULSE 61–77; RESP 16–18; TEMP 96.3–100; O2SAT 91–98
[2016-12-07] MEDS: CHLORHEXIDINE GLUCONATE 2 % 1 PACK (2 CLOTHS) TOP SCH (00:12)
[2016-12-07] MEDS: RESP: ALBUTEROL 2.5 MG/3 ML NEB (PRN) INH ×2 (02:35→04:43)
[2016-12-07] MEDS: MEDIUM DOSE INSULIN NOVOLOG SUPPLEMENTAL SCALE SQ SCH ×3 (04:00→08:00)
[2016-12-07 05:42] LABS: HEMATOCRIT 24.2 % (35.0-46.0); REVIEW FLAG FINAL
[2016-12-07] MEDS: ISOSORBIDE MONONITRATE 30 MG TAB PO SCH (05:51)
[2016-12-07 06:01] LABS: BICARBONATE 31.8 MEQ/L (21.0-32.0); MAGNESIUM 1.6 MG/DL (1.5-2.5); POTASSIUM 3.6 MEQ/L (3.5-5.1)
[2016-12-07] MEDS: RESP: ALBUTEROL 2.5 MG/IPRATROPIUM 0.5 MG NEB (SCH) NEB ×4 (07:54→19:26)
[2016-12-07] MEDS: FUROSEMIDE 20 MG TAB PO SCH ×2 (08:46→22:30)
[2016-12-07] MEDS: METOPROLOL TARTRATE 25 MG TAB PO SCH ×2 (08:46→22:31)
[2016-12-07] MEDS: PANTOPRAZOLE SODIUM 40 MG VIAL IV SCH (08:46)
[2016-12-07] MEDS: INSULIN DETEMIR 100 UNITS/ML VIAL SQ SCH (08:46)
[2016-12-07] MEDS: APIXABAN 2.5 MG TABLET PO SCH ×2 (08:46→22:31)
[2016-12-07] MEDS: VITAMIN B CMPLX/VITC/FOLIC AC CAP PO SCH (08:46)
[2016-12-07] MEDS: CHOLECALCIFEROL (VIT D3) 1000 UNIT TAB PO SCH (08:46)
[2016-12-07] MEDS: NYSTATIN 100,000 UNIT/GM CREAM 15 GM TOPICAL SCH ×2 (08:47→22:32)
[2016-12-07] MEDS: COLLAGENASE OINT 30 GM TUBE TOPICAL SCH (08:47)
[2016-12-07] MEDS: MUPIROCIN 2% OINT 22 GM TUBE TOPICAL SCH ×2 (08:47→22:32)
--- NOTE | 2016-12-07 11:02 | HHI.FPPN ---
Subjective Remarks No acute events. Sitting up in bed, eating her breakfast. Reports no issues with her breakfast. Does report her glucose was on the low side this morning. She is not eating much of her dinner at night b/c she does not like the dinners served here. Currently asymptomatic. Breathing treatments really help. Objective Vitals Vital Signs Date Time Temp Pulse Resp B/P Pulse Ox O2 Delivery O2 Flow Rate FiO2 12/07/16 08:00 96.3 61 17 111/56 94 12/07/16 07:57 92 Nasal Cannula 3.00 12/07/16 04:46 92 Nasal Cannula 3.00 12/07/16 02:35 91 Nasal Cannula 3.00 12/07/16 00:26 98.5 65 18 122/58 97 12/06/16 20:08 92 Nasal Cannula 3.00 12/06/16 20:00 99.1 78 18 125/61 94 12/06/16 16:00 98.0 77 18 109/79 94 12/06/16 13:46 97.5 70 17 130/70 94 I/O 12/06/16 12/06/16 12/06/16 12/07/16 12/07/16 12/07/16 07:00 15:00 23:00 07:00 15:00 23:00 Intake Total 480 ml 575 ml 380 ml 360 ml Output Total 3000 ml Balance 480 ml -2425 ml 380 ml 360 ml Intake Oral 480 ml 575 ml 380 ml 360 ml IV Total 0 ml Hemodialysis 3000 ml # Voids 1 2 1 1 # Bowel Movements 1 1 1 1 Result Diagram: 12/07/16 0433 12/07/16 0433 Objective Remarks GENERAL: Sitting up in bed, no distress SKIN: Mild pallor. No rashes. Large ecchymosis covering left forearm and distal 1/3 of left upper arm on posteromedial side. Ecchymosis of right mid-arm, left hip. These are resolving from prior exams. Cool and dry. Exam from previous days : Stage 2 sacral decubitus ulcer right buttock near midline. Stage 1 pressure ulcer right upper back, b/l heels. CARDIOVASCULAR: NRRR. Normal S1/S2. No MRG RESPIRATORY: CTAB, good air entry. No crackles noted on exam today. MUSCULOSKELETAL: Small superficial abrasion on dorsal aspect of middle finger. Slightly erythematous but evidence of cellulitis or abscess. Full ROM. 1+ edema of BLE to just above ankles (sitting up with legs dependent). 2+ pitting edema. NEUROLOGICAL: Awake and alert. Well-oriented. A/P Assessment and Plan 76 year old female with PMH of DM, AFib, COPD, CKD initially presented with DKA , rhabdomyolysis, and sepsis, now with resolved DKA, but now with acute renal failure and requiring hemodialysis. Awaiting for PermCath placement. dw Dr. Talamantes Discharge Planning Will need rehabilitation/SNF placement on discharge. Palliative care is involved. She wants aggressive care for the time being. Pending PermCath and setting up outpatient dialysis, likely early next week. Problem List: (1) Acute on chronic kidney failure Status: Acute Plan: Likely multifactorial etiology, including rhabdomyolysis, ATN, cardiogenic. Creatinine reached a peak of 6.19 with BUN of 82, with decreasing urinary output and increasing potassium level, and decision was made to initiate hemodialysis. Creatinine up to 3.86 today, BUN of 28. Pitting edema present. - Nephrology on board, appreciate assistance - Hemodialysis es, , Sat per nephrology recs, will need outpatient dialysis. - PermCath placement scheduled for Thursday. - Monitor I&O's, urine output, electrolytes - Avoid nephrotoxic agents - Renally dose medications - Monitor electrolytes - Monitor kidney function/urine output (2) Chronic obstructive lung disease Status: Chronic Plan: Lungs now clear to auscultation. Sx could have been due to COPD exacerbation versus cardiac wheezing from CHF/pulmonary fluid overload. Lasix also seems to help. - DuoNeb treatments scheduled q4hrs - Albuterol neb Q2hrs prn - Prednisone and azithromycin completed on 11/29 - Continue incentive spirometer, EZ Pap - Monitor fluid balance (3) CHF, chronic Status: Chronic Plan: Stable - Follow clinically - Continue Lopressor from home - Monitor fluid status, daily I's and O's and weights - If worsen, will add diuretics (4) Atrial fibrillation Status: Chronic Plan: Rate controlled. Has ICD in place. - Cardiology on board, appreciate assistance - Continue Eliquis. Hold anticoagulation on 12/08 for PermCath placement on 12/[address] Ashley - Plavix currently on hold (5) Coronary artery disease Status: Chronic Plan: Presented with elevated troponin and T-wave flattening and has a history of coronary artery disease. Had negative cardiac PET in 2015. No chest pain currently. - Cardiology on board, appreciate assistance - Continue medical management with BB and isosorbide dinitrate 10 mg PO daily to treat probable anginal symptoms - Plavix on hold for PermCath placement next week - Stress test in the future as an outpatient. (6) Pressure ulcer Status: Acute Plan: See physical exam; several lesions noted on presentation to ICU. Do not appear acutely infected. - Wound care nurse consulted, appreciate recommendations - Topical ointments to promote healing - Air mattress - Rotate patient every 2 hours - Monitor clinically (7) Depressed Status: Acute Plan: Significant depression with recent loss of family member. Also with significant weight loss. Symptoms seem to be improving, but she is upset about her current health status. Appetite has improved and she is eating well. Now on Remeron, moods appear much improved from admission. Still trying to encourage good nutrition, giving Ensure as a supplement. - Remeron 15 mg HS for depression and appetite stimulation (8) FEN/PPX Status: Acute Plan: Fluids: With dialysis. Monitor fluid status routinely. Electrolytes: Monitor Nutrition: Renal diet, mechanical soft consistency per speech therapy DVT: Eliquis Problem Qualifiers (1) Atrial fibrillation: Qualified Code: I48.2 - Chronic atrial fibrillation (2) Coronary artery disease: Qualified Code: I25.118 - Coronary artery disease of [place] artery of [place] heart with stable angina pectoris Chato Culp MD R2 Dec 07, 2016 11:02
[2016-12-07] MEDS ORDERED: GLUCAGON 1 MG/ML VIAL OTHER PRN (11:30)
[2016-12-07] MEDS ORDERED: DEXTROSE 50% IN WATER 50 ML VIAL(D50) IV PUSH PRN (11:30)
[2016-12-07] MEDS: INSULIN ASPART SUPPLEMENTAL SCALE SQ SCH ×2 (16:00→21:00)
[2016-12-07] MEDS: MIRTAZAPINE 15 MG TAB PO SCH (22:31)
[2016-12-07] MEDS: DONEPEZIL HCL 5 MG TAB PO SCH (22:31)
[2016-12-08] VITALS (8 sets, daily range): BP systolic 106–142; BP diastolic 56–72; PULSE 61–82; RESP 16–20; TEMP 96.9–98.5; O2SAT 91–97
[2016-12-08] MEDS: CHLORHEXIDINE GLUCONATE 2 % 1 PACK (2 CLOTHS) TOP SCH (04:00)
[2016-12-08] MEDS: RESP: ALBUTEROL 2.5 MG/3 ML NEB (PRN) INH (04:48)
[2016-12-08] MEDS: ISOSORBIDE MONONITRATE 30 MG TAB PO SCH (06:21)
[2016-12-08] MEDS: INSULIN ASPART SUPPLEMENTAL SCALE SQ SCH ×3 (06:23→16:00)
[2016-12-08] MEDS: RESP: ALBUTEROL 2.5 MG/IPRATROPIUM 0.5 MG NEB (SCH) NEB ×4 (07:53→21:49)
[2016-12-08] MEDS: MUPIROCIN 2% OINT 22 GM TUBE TOPICAL SCH (09:00)
[2016-12-08] MEDS: CHOLECALCIFEROL (VIT D3) 1000 UNIT TAB PO SCH (10:19)
[2016-12-08] MEDS: PANTOPRAZOLE SODIUM 40 MG VIAL IV SCH (10:19)
[2016-12-08] MEDS: FUROSEMIDE 20 MG TAB PO SCH ×2 (10:19→23:57)
[2016-12-08] MEDS: VITAMIN B CMPLX/VITC/FOLIC AC CAP PO SCH (10:19)
[2016-12-08] MEDS: COLLAGENASE OINT 30 GM TUBE TOPICAL SCH (10:22)
[2016-12-08] MEDS: NYSTATIN 100,000 UNIT/GM CREAM 15 GM TOPICAL SCH (10:22)
[2016-12-08] MEDS: METOPROLOL TARTRATE 25 MG TAB PO SCH ×2 (10:26→23:57)
[2016-12-08] MEDS ORDERED: MORPHINE SULFATE 4 MG/ML INJ IV PUSH ONE (11:00)
[2016-12-08] MEDS ORDERED: IOHEXOL 350 MG/ML 10 ML VIAL (for RAD DIAG) IV ONE (11:24)
--- NOTE | 2016-12-08 11:54 | HHI.FPPN ---
Subjective Remarks This morning Mrs. Palomo is tearful and in pain localized to her left leg, starting in groin and going downward. Worst at her foot. She feels some numbness /tingling compared to right side. No incontinence. Difficulty bearing weight. Denies CP. Needed more O2 overnight but today AM not short of breath. No n/v. ( Anthony Kimbrough MD R1) Objective Vitals Vital Signs Date Time Temp Pulse Resp B/P Pulse Ox O2 Delivery O2 Flow Rate FiO2 12/08/16 08:00 97.5 61 16 106/56 95 12/08/16 07:57 93 Nasal Cannula 5.00 12/08/16 06:20 72 20 94 12/08/16 04:50 91 Nasal Cannula 3.00 12/08/16 00:00 97.8 78 18 122/60 97 12/07/16 20:00 98.0 77 16 126/58 98 12/07/16 19:29 98 Nasal Cannula 3.00 12/07/16 16:00 100.0 71 17 115/56 93 12/07/16 15:59 98.2 12/07/16 12:00 98.3 63 17 96/47 94 I/O 12/07/16 12/07/16 12/07/16 12/08/16 12/08/16 12/08/16 07:00 15:00 23:00 07:00 15:00 23:00 Intake Total 360 ml 1200 ml 480 ml 240 ml 120 ml Output Total 550 ml 600 ml Balance 360 ml 1200 ml -70 ml -360 ml 120 ml Intake Oral 360 ml 1200 ml 480 ml 240 ml 120 ml Output Urine Total 550 ml 600 ml # Voids 1 1 # Bowel Movements 1 1 0 0 (Anthony Kimbrough MD R1) Result Diagram: 12/07/16 0433 12/07/163 Objective Remarks GENERAL: Sitting up in chair, no distress SKIN: Mild pallor. No rashes. Large ecchymosis covering left forearm and distal 1/3 of left upper arm on posteromedial side. Ecchymosis of right mid-arm, left hip. These are resolving from prior exams. Cool and dry. Exam from previous days : Stage 2 sacral decubitus ulcer right buttock near midline. Stage 1 pressure ulcer right upper back, b/l heels. CARDIOVASCULAR: NRRR. Normal S1/S2. No MRG RESPIRATORY: CTAB, good air entry. No crackles noted on exam today. MUSCULOSKELETAL: Small superficial abrasion on dorsal aspect of middle finger. Slightly erythematous but evidence of cellulitis or abscess. Non-pitting edema to b/l ankles. L foot extremely tender to palpation diffusely, ROM limited due to pain (per patient not truly weak). Light touch produces exquisite pain diffusely over foot/ankle, no localizable bony tenderness. Exquisite pain on any motion of leg. LLE feels about same temp as RLE. Pulses unpalpable BLE a baseline due to existing PVD. NEUROLOGICAL: Awake and alert. Well-oriented. Numbness dorsolateral aspect of L foot compared to right side. Medications and IVs Current Medications Medications (Trade) Dose Ordered Sig/Francesca Route Start Time Stop Time Status Last Admin (NS Flush) 2 ml UNSCH PRN IVF 11/19/16 17:00 11/19/16 18:58 (Sodium Bicarbonate 8.4% Inj) 100 meq UNSCH PRN IV 11/19/16 18:45 (Sodium Bicarbonate 8.4% Inj) 50 meq UNSCH PRN IV 11/19/16 18:45 (Protonix Inj) 40 mg DAILY IV 11/20/16 09:00 12/08/16 10:19 (Zofran Inj) 4 mg Q6H PRN IV 11/20/16 04:15 11/21/16 08:57 Miscellaneous Information 1 Q361D XX 11/20/16 04:15 11/20/16 04:15 (Chlorhexidine 2% Cloth) Taper DAILY@04 TOP 11/21/16 04:00 11/17/17 03:59 11/23/16 04:00 (Chlorhexidine 2% Cloth) 3 pack UNSCH PRN TOP 11/20/16 04:15 (Mycostatin Cream) 1 applic Q12HR TOPICAL 11/20/16 09:00 12/08/16 10:22 (Plavix) 75 mg DAILY PO 11/21/16 09:00 Hold 12/05/16 07:46 (Vitamin D3) 2,000 units DAILY PO 11/21/16 14:15 12/08/16 10:19 (Lopressor) 25 mg Q12HR PO 11/21/16 14:00 12/08/16 10:26 (Remeron) 15 mg HS PO 11/23/16 21:00 12/07/16 22:31 (Aricept) 5 mg HS PO 11/23/16 21:00 12/07/16 22:31 (Bactroban 2% Oint) 1 applic Q12HR TOPICAL 11/24/16 10:00 12/07/16 22:32 (Tylenol) 500 mg Q4H PRN PO 11/24/16 13:30 12/04/16 16:01 Oxycodone HCl 5 mg 5 mg Q6H PRN PO 11/24/16 13:30 12/08/16 10:19 (NS 1000 ml Inj) 1,000 ml @ 0 mls/hr Q0M PRN IV 11/25/16 11:55 12/02/16 12:10 Heparin Sodium (Porcine) 8000 units 8,000 units UNSCH PRN IVF 11/25/16 12:00 11/28/16 11:35 Sodium Chloride 1,000 ml @ 200 mls/hr Q5H PRN IV 11/25/16 11:55 (NS 1000 ml Inj) 1,000 ml @ 0 mls/hr Q0M PRN IV 11/25/16 11:55 (Mannitol Inj) 12.5 gm UNSCH PRN IV 11/25/16 12:00 (Albumin 25% Inj) 25 gm UNSCH PRN IV 11/25/16 12:00 11/29/16 11:32 (NS Flush) 5 ml UNSCH PRN IV FLUSH 11/25/16 12:00 (Heparin Inj) UNSCH PRN .XX 11/25/16 12:00 12/06/16 12:38 (Gentamicin (Dialysis) Inj) 20 mg UNSCH PRN IV 11/25/16 12:00 12/06/16 12:39 (Zofran Inj) 4 mg UNSCH PRN IV 11/25/16 12:00 (Tylenol) 650 mg UNSCH PRN PO 11/25/16 12:00 11/27/16 21:21 (Benadryl) 25 mg UNSCH PRN PO 11/25/16 12:00 (Nitrostat Sl) 0.4 mg UNSCH PRN SL 11/25/16 12:00 (Catapres) 0.1 mg UNSCH PRN PO 11/25/16 12:00 (Gelfoam 12 Mm/7 Mm Top) 1 foam UNSCH PRN TOP 11/25/16 12:00 (Drisdol) 50,000 units Q7D PO 11/26/16 07:00 12/03/16 06:04 (Eliquis) 2.5 mg BID PO 11/27/16 21:00 Hold 12/07/16 22:31 (Nephrocaps) 1 cap DAILY PO 11/30/16 09:00 12/08/16 10:19 Furosemide 60 mg 60 mg BID PO 11/29/16 21:00 12/08/16 10:19 (NS 1000 ml Inj) 1,000 ml @ 0 mls/hr Q0M PRN IV 12/01/16 10:30 Heparin Sodium (Porcine) 8000 units 8,000 units UNSCH PRN IVF 12/01/16 10:30 Sodium Chloride 1,000 ml @ 200 mls/hr Q5H PRN IV 12/01/16 11:00 (NS 1000 ml Inj) 1,000 ml @ 0 mls/hr Q0M PRN IV 12/01/16 10:30 (Mannitol Inj) 12.5 gm UNSCH PRN IV 12/01/16 10:30 (Albumin 25% Inj) 25 gm UNSCH PRN IV 12/01/16 10:30 (NS Flush) 5 ml UNSCH PRN IV FLUSH 12/01/16 10:30 (Heparin Inj) UNSCH PRN .XX 12/01/16 10:30 (Gentamicin (Dialysis) Inj) 20 mg UNSCH PRN IV 12/01/16 10:30 (Zofran Inj) 4 mg UNSCH PRN IV 12/01/16 10:30 (Tylenol) 650 mg UNSCH PRN PO 12/01/16 10:30 (Benadryl) 25 mg UNSCH PRN PO 12/01/16 10:30 (Nitrostat Sl) 0.4 mg UNSCH PRN SL 12/01/16 10:30 (Catapres) 0.1 mg UNSCH PRN PO 12/01/16 10:30 (Gelfoam 12 Mm/7 Mm Top) 1 foam UNSCH PRN TOP 12/01/16 10:30 (Imdur) 30 mg DAILY@07 PO 12/02/16 07:00 12/08/16 06:21 (Marlene-Colace) 2 tab BID PRN PO 12/05/16 12:00 12/06/16 00:54 (Santyl Oint) 1 applic DAILY TOPICAL 12/06/16 09:00 12/08/16 10:22 (D50w (Vial) Inj) 25 ml UNSCH PRN IV PUSH 12/07/16 11:30 (Glucagon Inj) 1 mg UNSCH PRN OTHER 12/07/16 11:30 (Roxicodone) 5 mg Q6H PRN PO 12/08/16 10:15 (Anthony Kimbrough MD R1) A/P Assessment and Plan 76 year old female with PMH of DM, AFib, COPD, CKD initially presented with DKA , rhabdomyolysis, and sepsis, now with resolved DKA, but now with acute renal failure and requiring hemodialysis. Awaiting for PermCath placement. dw Dr. Talamantes Discharge Planning Will need rehabilitation/SNF placement on discharge. Palliative care is involved. She wants aggressive care for the time being. Pending PermCath and setting up outpatient dialysis, likely early next week. (Anthony Kimbrough MD R1) Attending Attestation Patient seen and examined, discussed with Dr Kimbrough. I agree with assessment and management as documented and discussed with me. Pt complains of severe left leg pain x 4 days. She reports she forgot to tell the doctors any time she was examined. Pain is throughout her entire leg. Check CTA after discussion with radiology re: safety of kidneys. (Esperanza Talamantes MD) Problem List: (1) Acute on chronic kidney failure Status: Acute Plan: Likely multifactorial etiology, including rhabdomyolysis, ATN, cardiogenic. Creatinine reached a peak of 6.19 with BUN of 82, with decreasing urinary output and increasing potassium level, and decision was made to initiate hemodialysis. Creatinine up to 3.86 today, BUN of 28. Pitting edema present. - Nephrology on board, appreciate assistance - Hemodialysis Tues, Thurs, Sat per nephrology recs, will need outpatient dialysis. - PermCath placement scheduled for 12/10 - Holding Plavix & Eliquis per cardiology input - Monitor I&O's, urine output, electrolytes - Avoid nephrotoxic agents - Renally dose medications - Monitor electrolytes - Monitor kidney function/urine output (2) Leg pain, left Status: Acute Plan: See physical exam; several lesions noted on presentation to ICU. Do not appear acutely infected. Concern of increased pain today raises some suspicion for arterial thrombus/embolus in setting of previous severe PVD. - CTA lower extremities with runoff to assess for arterial thrombus/embolus - Wound care nurse consulted, appreciate recommendations - Topical ointments to promote healing - Air mattress - Rotate patient every 2 hours - Monitor clinically (3) Chronic obstructive lung disease Status: Chronic Plan: Lungs now clear to auscultation. Sx could have been due to COPD exacerbation versus cardiac wheezing from CHF/pulmonary fluid overload. Lasix also seems to help. - DuoNeb treatments scheduled q4hrs - Albuterol neb Q2hrs prn - Prednisone and azithromycin completed on 11/29 - Continue incentive spirometer, EZ Pap - Monitor fluid balance (4) CHF, chronic Status: Chronic Plan: Stable - Follow clinically - Continue Lopressor from home - Monitor fluid status, daily I's and O's and weights - If worsen, will add diuretics (5) Atrial fibrillation Status: Chronic Plan: Rate controlled. Has ICD in place. - Cardiology on board, appreciate assistance - Continue Eliquis. Hold anticoagulation on 12/08 for PermCath placement on 12/[address] Ashley - Plavix currently on hold (6) Coronary artery disease Status: Chronic Plan: Presented with elevated troponin and T-wave flattening and has a history of coronary artery disease. Had negative cardiac PET in 2014. No chest pain currently. - Cardiology on board, appreciate assistance - Continue medical management with BB and isosorbide dinitrate 10 mg PO daily to treat probable anginal symptoms - Plavix on hold for PermCath placement next week - Stress test in the future as an outpatient. (7) Pressure ulcer Status: Acute Plan: See physical exam; several lesions noted on presentation to ICU. Do not appear acutely infected. - Wound care nurse consulted, appreciate recommendations - Topical ointments to promote healing - Air mattress - Rotate patient every 2 hours - Monitor clinically (8) Depressed Status: Acute Plan: Significant depression with recent loss of family member. Also with significant weight loss. Symptoms seem to be improving, but she is upset about her current health status. Appetite has improved and she is eating well. Now on Remeron, moods appear much improved from admission. Still trying to encourage good nutrition, giving Ensure as a supplement. - Remeron 15 mg HS for depression and appetite stimulation (9) FEN/PPX Status: Acute Plan: Fluids: With dialysis. Monitor fluid status routinely. Electrolytes: Monitor Nutrition: Renal diet, mechanical soft consistency per speech therapy DVT: Eliquis on hold for PermCath 12/[address] Talamantes (Anthony Kimbrough MD R1) Problem Qualifiers (1) Atrial fibrillation: Qualified Code: I48.2 - Chronic atrial fibrillation (2) Coronary artery disease: Qualified Code: I25.118 - Coronary artery disease of [place] artery of [place] heart with stable angina pectoris Anthony Kimbrough MD R1 Dec 08, 2016 11:54 Esperanza Talamantes MD Dec 08, 2016 14:34
--- NOTE | 2016-12-08 12:35 | HHI.NPPN ---
Subjective History of Present Illness This patient is a 76-year-old female. Patient is a poor historian and history primarily obtained from the records. According to the records I reviewed the patient has a history of diabetes mellitus, hypertension as well as HIV. Infectious disease is currently in consultation as well as critical care. The patient was admitted to this institution on November 19, 2016 after being found "down" in her apartment. On presentation to the hospital she was noted to have a blood sugar of 957 with a creatinine of 2.68 and initially a sodium of 133 as well as a total CO2 on BMP of 10.6. Beta hydroxybutyrate was elevated. Patient has been treated for DKA and serum sodium level as expected has increased as a glucose level has dropped. Creatinine level is slightly improved today at 2.56. There is also evidence of rhabdomyolysis on presentation with significantly elevated CK level and a urinalysis positive for large amount of blood but minimal rbc. Of interest patient was taking Crestor as an outpatient. Review of Systems General Constitutional: Fatigue Respiratory Lungs: SOB Gastrointestinal GI Remarks Nausea, anorexia Objective Data Data 12/07/16 12/08/16 19:00 07:00 Intake Total 1200 ml 720 ml Output Total 1150 ml Balance 1200 ml -430 ml Intake Oral 1200 ml 720 ml Output Urine Total 1150 ml # Voids 1 # Bowel Movements 1 0 Vital Signs Date Time Temp Pulse Resp B/P Pulse Ox O2 Delivery O2 Flow Rate FiO2 12/08/16 08:00 97.5 61 16 106/56 95 12/08/16 07:57 93 Nasal Cannula 5.00 12/08/16 06:20 72 20 94 12/08/16 04:50 91 Nasal Cannula 3.00 12/08/16 00:00 97.8 78 18 122/60 97 12/07/16 20:00 98.0 77 16 126/58 98 12/07/16 19:29 98 Nasal Cannula 3.00 12/07/16 16:00 100.0 71 17 115/56 93 12/07/16 15:59 98.2 -: 12/07/16 0433 12/07/16 0433 Tubes & Lines: Vas-Cath Physical Exam General Appearance: No Acute Distress, Pale Appearance Remarks Appears to be mildly dyspneic. Pulmonary Resp Exam: Clear Bilaterally, Breath Sounds Equal Cardiology CV Exam: Regular, Normal Sinus Rhythm Gastrointestinal/Abdomen GI Exam: Soft, Non-Tender Integumentary Skin Exam: Clear, Warm Extremeties Extremities Exam: Trace Edema (left lower extremity), Moderate Edema (right lower extremity site of old injury and chronic), Pitting Edema, Dependent Edema Neurologic Neuro Exam: Alert, Awake, Speech Clear, Moving All Extremities Psychiatric Psych Exam: Appropriate Responses Assessment/Plan Discussed Condition With: Patient Problem List: (1) PRATIMA (acute kidney injury) Plan: Patient complaining of lower extremity pain. Primary care physician is evaluating same. Otherwise wait placement of a hemodialysis PermCath per radiology. Patient has been approved for outpatient dialysis post discharge. Medications should be adjusted for the patient's estimated GFR if clinically indicated. Avoid agents with significant potential for nephrotoxicity possible including NSAIDs for analgesia, iodine contrast agents. Gadolinium is contraindicated if the GFR is below 30. (2) Rhabdomyolysis Plan: Improved. Most likely was secondary to compression injury while patient was on the floor. Patient was on a statin drug i.e. Crestor so uncertain to what degree this may have played a role also. (3) CKD (chronic kidney disease) stage 3, GFR 30-59 ml/min Plan: Secondary to nephrosclerosis of hypertension and aging. (4) Vitamin D deficiency Plan: Vitamin D supplementation as ordered. (5) Congestive heart failure Plan: Continue by mouth furosemide and dialysis as indicated for fluid removal. Problem Qualifiers (1) Rhabdomyolysis: Qualified Code: M62.82 - Non-traumatic rhabdomyolysis Mario Valdes MD Dec 08, 2016 12:35 Mario Valdes MD Dec 08, 2016 12:35
--- NOTE | 2016-12-08 14:40 | RADRPT ---
EXAM DATE/TIME: 12/08/2016 10:49 [facility] COMPARISON: No previous studies available for comparison. INDICATIONS : Evaluate for embolism. IV CONTRAST: 100 cc Omnipaque 350 (iohexol) IV RADIATION DOSE: 3.45 CTDIvol (mGy) MEDICAL HISTORY : Cardiovascular disease. Hypertension. Diabetes mellitus type 2. SURGICAL HISTORY : None. ENCOUNTER: Initial ACUITY: 1 day PAIN SCALE: 4/10 LOCATION: Bilateral lower extremities TECHNIQUE: Volumetric scanning was performed using a multi-row detector CT scanner. The data was post processed with a variety of visualization algorithms including full volume maximum intensity pr ojection, multi-planar sliding thin slab reformation, curved planar reformation, and surface renderin g techniques. Using automated exposure control and adjustment of the mA and/or kV according to patie nt size, radiation dose was kept as low as reasonably achievable to obtain optimal diagnostic quality images. FINDINGS: ABDOMINAL AORTA: Moderate calcified plaque is evident in the normal aorta. There is no evidence o f significant stenosis or aneurysmal enlargement. Significant plaquing calcification is seen at the o rigin the aortic branches. The celiac artery and superior mesenteric artery contain moderate to sever e stenoses measuring in the 50-69% range. High grade stenoses greater than 70% identified in 2 right renal arteries. A left renal artery contains a mild to moderate stenosis in the 30-49% range. RIGHT PELVIS: Significant calcified plaque is present at the common and external iliac arteries. A high-grade stenosis is identified at the origin of the external iliac artery. Additional areas of m oderate stenosis are noted. LEFT PELVIS: Heavily calcified plaque is identified in the common and external iliac arteries. A moderate to severe stenosis is identified in the proximal external iliac artery. External iliac arter y is small in caliber. RIGHT THIGH: Eccentric plaque with moderate stenosis is identified in the right common femoral ar neftali. The superficial femoral artery is completely occluded. There is reconstitution just below the a dductor canal. The profunda femoris contains eccentric calcified plaque. LEFT THIGH: Eccentric plaque with mild to severe stenosis is identified in the left common femora l artery. The common femoral artery flows directly into the profunda femoris. The superficial femoral artery is completely occluded from its origin to the adductor canal. RIGHT KNEE: Heavily calcified eccentric plaque is present in the popliteal artery. The vessel is small in caliber. Mild to moderate generalized during the vessel is noted. LEFT KNEE: Heavily calcified plaque is identified in the proximal popliteal artery. There is mild to moderate stenosis. The vessels otherwise patent. RIGHT LEG: Three-vessel infrapopliteal runoff is noted. Runoff vessels demonstrate diffuse lumina l irregularity with eccentric calcified plaque. LEFT LEG: Three-vessel runoff is noted. There is significant luminal irregularity and eccentric p laque. Nonvascular findings include moderate right pleural effusion, small left pleural effusion and choleli thiasis. CONCLUSION: Advanced calcific atherosclerotic vascular disease with hemodynamically significant s teno-occlusive involving the celiac artery, superior mesenteric artery, right renal arteries, externa l iliac arteries and superficial femoral arteries as described. Three-vessel infrapopliteal runoff with diffuse irregularity and eccentric calcified plaque Bilateral pleural effusions Cholelithiasis. Loyd Almeida MD on December 08, 2016 at 14:21 Board Certified Radiologist. This report was verified electronically.
[2016-12-08 15:44] LABS: HEMATOCRIT 21.3 % (35.0-46.0); REVIEW FLAG FINAL
[2016-12-08 16:04] LABS: BICARBONATE 29.3 MEQ/L (21.0-32.0); POTASSIUM 4.8 MEQ/L (3.5-5.1)
--- NOTE | 2016-12-08 18:11 | PD.CAR.PN ---
CVT Progress Note Subjective/Hospital Course: Referral received Full consultation to follow Keshawn Mcnamara Objective: Vital Signs Date Time Temp Pulse Resp B/P Pulse Ox O2 Delivery O2 Flow Rate FiO2 12/08/16 16:00 98.5 72 20 142/64 95 12/08/16 12:00 96.9 82 16 126/62 93 12/08/16 08:00 97.5 61 16 106/56 95 12/08/16 07:57 93 Nasal Cannula 5.00 12/08/16 06:20 72 20 94 12/08/16 04:50 91 Nasal Cannula 3.00 12/08/16 00:00 97.8 78 18 122/60 97 12/07/16 20:00 98.0 77 16 126/58 98 12/07/16 19:29 98 Nasal Cannula 3.00 Labs: Laboratory Tests Test 12/08/16 15:22 Hemoglobin 7.2 GM/DL (11.6-15.3) Hematocrit 21.3 % (35.0-46.0) Sodium Level 127 MEQ/L (136-145) Potassium Level 4.8 MEQ/L (3.5-5.1) Chloride Level 90 MEQ/L (98-107) Carbon Dioxide Level 29.3 MEQ/L (21.0-32.0) Anion Gap 8 MEQ/L (5-15) Blood Urea Nitrogen 37 MG/DL (7-18) Creatinine 4.29 MG/DL (0.50-1.00) Estimat Glomerular Filtration 10 ML/MIN (>89) Rate Random Glucose 322 MG/DL (74-106) Calcium Level 7.6 MG/DL (8.5-10.1) Result Diagram: 12/08/16 1522 12/08/16 1522 Margarito Sanchez MD Dec 08, 2016 18:11
[2016-12-08] MEDS: DONEPEZIL HCL 5 MG TAB PO SCH (23:56)
[2016-12-08] MEDS: MIRTAZAPINE 15 MG TAB PO SCH (23:58)
[2016-12-08] MEDS: ATORVASTATIN 80 MG TAB PO SCH (23:58)
[2016-12-09] VITALS: BP 120/68; PULSE 76; RESP 18; TEMP 97.4; O2SAT 96
[2016-12-09] MEDS: INSULIN ASPART SUPPLEMENTAL SCALE SQ SCH ×5 (00:02→21:00)
[2016-12-09] MEDS: MUPIROCIN 2% OINT 22 GM TUBE TOPICAL SCH ×3 (00:03→22:48)
[2016-12-09] MEDS: NYSTATIN 100,000 UNIT/GM CREAM 15 GM TOPICAL SCH ×3 (00:03→22:48)
[2016-12-09] MEDS: CHLORHEXIDINE GLUCONATE 2 % 1 PACK (2 CLOTHS) TOP SCH (01:50)
[2016-12-09] MEDS: ISOSORBIDE MONONITRATE 30 MG TAB PO SCH (06:12)
[2016-12-09 06:29] LABS: HEMATOCRIT 21.4 % (35.0-46.0); MEAN CELL VOLUME 83.2 FL (80.0-100.0); MEAN CORPUSCULAR HEMOGLOBIN 27.8 PG (27.0-34.0); MEAN CORPUSCULAR HGB CONC 33.4 % (32.0-36.0); PLATELET COUNT 130 TH/MM3 (150-450); RED BLOOD COUNT 2.57 MIL/MM3 (4.00-5.30); RED CELL DISTRIBUTION WIDTH 15.6 % (11.6-17.2); REVIEW FLAG FINAL
[2016-12-09 06:58] LABS: BICARBONATE 28.8 MEQ/L (21.0-32.0); POTASSIUM 5.1 MEQ/L (3.5-5.1)
[2016-12-09 08:00] VITALS: BP 139/68; PULSE 61; RESP 18; TEMP 97.5; O2SAT 92
[2016-12-09] MEDS: RESP: ALBUTEROL 2.5 MG/IPRATROPIUM 0.5 MG NEB (SCH) NEB ×4 (08:42→19:34)
[2016-12-09 08:45] VITALS: O2SAT 94
[2016-12-09] MEDS: COLLAGENASE OINT 30 GM TUBE TOPICAL SCH (09:00)
[2016-12-09] MEDS: CHOLECALCIFEROL (VIT D3) 1000 UNIT TAB PO SCH (09:43)
[2016-12-09] MEDS: VITAMIN B CMPLX/VITC/FOLIC AC CAP PO SCH (09:43)
[2016-12-09] MEDS: FUROSEMIDE 20 MG TAB PO SCH ×2 (09:44→22:43)
[2016-12-09] MEDS: METOPROLOL TARTRATE 25 MG TAB PO SCH ×2 (09:44→22:43)
[2016-12-09] MEDS: PANTOPRAZOLE SODIUM 40 MG VIAL IV SCH (09:44)
--- NOTE | 2016-12-09 09:45 | HHI.NPPN ---
Subjective History of Present Illness This patient is a 76-year-old female. Patient is a poor historian and history primarily obtained from the records. According to the records I reviewed the patient has a history of diabetes mellitus, hypertension as well as HIV. Infectious disease is currently in consultation as well as critical care. The patient was admitted to this institution on November 19, 2016 after being found "down" in her apartment. On presentation to the hospital she was noted to have a blood sugar of 957 with a creatinine of 2.68 and initially a sodium of 133 as well as a total CO2 on BMP of 10.6. Beta hydroxybutyrate was elevated. Patient has been treated for DKA and serum sodium level as expected has increased as a glucose level has dropped. Creatinine level is slightly improved today at 2.56. There is also evidence of rhabdomyolysis on presentation with significantly elevated CK level and a urinalysis positive for large amount of blood but minimal rbc. Of interest patient was taking Crestor as an outpatient. Interval History Pt feeling OK today. Says appetite is still very poor. PermCath placement for tomorrow. Had aortogram yesterday for eval of leg pain. Review of Systems General Constitutional: Fatigue Respiratory Lungs: SOB Gastrointestinal GI Remarks Nausea, anorexia Objective Data Data 12/08/16 12/09/16 19:00 07:00 Intake Total 880 ml 120 ml Output Total 500 ml Balance 880 ml -380 ml Intake Oral 880 ml 120 ml Output Urine Total 500 ml # Bowel Movements 0 Vital Signs Date Time Temp Pulse Resp B/P Pulse Ox O2 Delivery O2 Flow Rate FiO2 12/09/16 08:45 94 Nasal Cannula 5.00 12/09/16 08:00 97.5 61 18 139/68 92 12/09/16 00:00 97.4 76 18 120/68 96 12/08/16 21:50 94 Nasal Cannula 5.00 12/08/16 16:00 98.5 72 20 142/64 95 12/08/16 12:00 96.9 82 16 126/62 93 -: 12/09/16 0556 12/09/16 0556 Imaging Last Impressions Aorta w/Runoff CTA 12/08/16 0000 Signed Impressions: Service Date/Time: Thursday, December 08, 2016 10:49 - CONCLUSION: Advanced calcific atherosclerotic vascular disease with hemodynamically significant steno-occlusive involving the celiac artery, superior mesenteric artery, right renal arteries, external iliac arteries and superficial femoral arteries as described. Three-vessel infrapopliteal runoff with diffuse irregularity and eccentric calcified plaque Bilateral pleural effusions Cholelithiasis. Loyd Almeida MD Chest X-Ray 11/27/16 0000 Signed Impressions: Service Date/Time: November 18:11 - CONCLUSION: Volume overload and slight worsening of pulmonary edema. Alton Jimenez MD Catheter Placement X-Ray 11/25/16 Signed Impressions: Service Date/Time: Friday, November 25, 2016 00:00 - CONCLUSION: Uncomplicated line placement as above. Postprocedural chest radiograph will be obtained to confirm position. Chad Nelson MD Abdomen Ultrasound 11/21/16 Signed Impressions: Service Date/Time: Monday, November 21, 2016 16:04 - CONCLUSION: 1. Dilated common bile duct measuring 11 mm. Correlation with alkaline phosphatase and bilirubin level is suggested to rule out biliary obstruction. 2. Thick-walled stone-containing gallbladder with minimal pericholecystic fluid. If there is clinical concern for acute cholecystitis a hepatobiliary scan may be helpful to confirm cystic duct obstruction. 3. Mild hepatomegaly. 4. Small right pleural effusion. 5. Trace ascites. 6. Poor visualization of the pancreas, abdominal aorta and inferior vena cava secondary to shadowing bowel gas. Joey Rosenthal MD Pelvis X-Ray 11/19/16 Signed Impressions: Service Date/Time: Saturday, November 19, 2016 18:23 - CONCLUSION: 1. Moderate degenerative changes involving the hip joints bilaterally. 2. Degenerative changes involving the lower lumbar spine. 3. No acute fracture or dislocation. Joey Rosenthal MD Head CT 11/19/16 0000 Signed Impressions: Service Date/Time: Saturday, November 19, 2016 17:54 - CONCLUSION: No acute disease. Joey Rosenthal MD Cervical Spine CT 11/19/16 0000 Signed Impressions: Service Date/Time: Saturday, November 19, 2016 17:54 - CONCLUSION: 1. Extensive motion artifact particularly at C3 and C4 levels which limits interpretation of these levels. 2. Grade I retrolisthesis of C3 in relation to C4 and C2 as well as C4 in relation to C5. 3. Diffuse cervical spondylosis at C5-C6, C6- C7 and to a lesser extent at C4-C5 and C3-C4. 4. No acute fracture or prevertebral soft-tissue swelling. 5. Mild spinal stenosis at C5-C6. 6. Mild bilateral foraminal narrowing at C5-C6 and C6-C7 and to a lesser extent at C4- C5 and C3-C4. 7. Reversal of the normal cervical lordosis. Joey Rosenthal MD Tubes & Lines: Vas-Cath Medication Review Current Medications Medications (Trade) Dose Ordered Sig/Francesca Route Start Time Stop Time Status Last Admin (NS Flush) 2 ml UNSCH PRN IVF 11/19/16 17:00 11/19/16 18:58 (Sodium Bicarbonate 8.4% Inj) 100 meq UNSCH PRN IV 11/19/16 18:45 (Sodium Bicarbonate 8.4% Inj) 50 meq UNSCH PRN IV 11/19/16 18:45 (Protonix Inj) 40 mg DAILY IV 11/20/16 09:00 12/08/16 10:19 (Zofran Inj) 4 mg Q6H PRN IV 11/20/16 04:15 11/21/16 08:57 Miscellaneous Information 1 Q361D XX 11/20/16 04:15 11/20/16 04:15 (Chlorhexidine 2% Cloth) Taper DAILY@04 TOP 11/21/16 04:00 11/17/17 03:59 11/23/16 04:00 (Chlorhexidine 2% Cloth) 3 pack UNSCH PRN TOP 11/20/16 04:15 (Mycostatin Cream) 1 applic Q12HR TOPICAL 11/20/16 09:00 12/09/16 00:03 (Plavix) 75 mg DAILY PO 11/21/16 09:00 Hold 12/05/16 07:46 (Vitamin D3) 2,000 units DAILY PO 11/21/16 14:15 12/08/16 10:19 (Lopressor) 25 mg Q12HR PO 11/21/16 14:00 12/08/16 23:57 (Remeron) 15 mg HS PO 11/23/16 21:00 12/08/16 23:58 (Aricept) 5 mg HS PO 11/23/16 21:00 12/08/16 23:56 (Bactroban 2% Oint) 1 applic Q12HR TOPICAL 11/24/16 10:00 12/09/16 00:03 (Tylenol) 500 mg Q4H PRN PO 11/24/16 13:30 12/04/16 16:01 Oxycodone HCl 5 mg 5 mg Q6H PRN PO 11/24/16 13:30 12/08/16 16:18 (NS 1000 ml Inj) 1,000 ml @ 0 mls/hr Q0M PRN IV 11/25/16 11:55 12/02/16 12:10 Heparin Sodium (Porcine) 8000 units 8,000 units UNSCH PRN IVF 11/25/16 12:00 11/28/16 11:35 Sodium Chloride 1,000 ml @ 200 mls/hr Q5H PRN IV 11/25/16 11:55 (NS 1000 ml Inj) 1,000 ml @ 0 mls/hr Q0M PRN IV 11/25/16 11:55 (Mannitol Inj) 12.5 gm UNSCH PRN IV 11/25/16 12:00 (Albumin 25% Inj) 25 gm UNSCH PRN IV 11/25/16 12:00 11/29/16 11:32 (NS Flush) 5 ml UNSCH PRN IV FLUSH 11/25/16 12:00 (Heparin Inj) UNSCH PRN .XX 11/25/16 12:00 12/06/16 12:38 (Gentamicin (Dialysis) Inj) 20 mg UNSCH PRN IV 11/25/16 12:00 12/06/16 12:39 (Zofran Inj) 4 mg UNSCH PRN IV 11/25/16 12:00 (Tylenol) 650 mg UNSCH PRN PO 11/25/16 12:00 11/27/16 21:21 (Benadryl) 25 mg UNSCH PRN PO 11/25/16 12:00 (Nitrostat Sl) 0.4 mg UNSCH PRN SL 11/25/16 12:00 (Catapres) 0.1 mg UNSCH PRN PO 11/25/16 12:00 (Gelfoam 12 Mm/7 Mm Top) 1 foam UNSCH PRN TOP 11/25/16 12:00 (Drisdol) 50,000 units Q7D PO 11/26/16 07:00 12/03/16 06:04 (Eliquis) 2.5 mg BID PO 11/27/16 21:00 Hold 12/07/16 22:31 (Nephrocaps) 1 cap DAILY PO 11/30/16 09:00 12/08/16 10:19 Furosemide 60 mg 60 mg BID PO 11/29/16 21:00 12/08/16 23:57 (NS 1000 ml Inj) 1,000 ml @ 0 mls/hr Q0M PRN IV 12/01/16 10:30 Heparin Sodium (Porcine) 8000 units 8,000 units UNSCH PRN IVF 12/01/16 10:30 Sodium Chloride 1,000 ml @ 200 mls/hr Q5H PRN IV 12/01/16 11:00 (NS 1000 ml Inj) 1,000 ml @ 0 mls/hr Q0M PRN IV 12/01/16 10:30 (Mannitol Inj) 12.5 gm UNSCH PRN IV 12/01/16 10:30 (Albumin 25% Inj) 25 gm UNSCH PRN IV 12/01/16 10:30 (NS Flush) 5 ml UNSCH PRN IV FLUSH 12/01/16 10:30 (Heparin Inj) UNSCH PRN .XX 12/01/16 10:30 (Gentamicin (Dialysis) Inj) 20 mg UNSCH PRN IV 12/01/16 10:30 (Zofran Inj) 4 mg UNSCH PRN IV 12/01/16 10:30 (Tylenol) 650 mg UNSCH PRN PO 12/01/16 10:30 (Benadryl) 25 mg UNSCH PRN PO 12/01/16 10:30 (Nitrostat Sl) 0.4 mg UNSCH PRN SL 12/01/16 10:30 (Catapres) 0.1 mg UNSCH PRN PO 12/01/16 10:30 (Gelfoam 12 Mm/7 Mm Top) 1 foam UNSCH PRN TOP 12/01/16 10:30 (Imdur) 30 mg DAILY@07 PO 12/02/16 07:00 12/09/16 06:12 (Marlene-Colace) 2 tab BID PRN PO 12/05/16 12:00 12/06/16 00:54 (Santyl Oint) 1 applic DAILY TOPICAL 12/06/16 09:00 12/08/16 10:22 (D50w (Vial) Inj) 25 ml UNSCH PRN IV PUSH 12/07/16 11:30 (Glucagon Inj) 1 mg UNSCH PRN OTHER 12/07/16 11:30 (Roxicodone) 5 mg Q6H PRN PO 12/08/16 10:15 (Lipitor) 80 mg HS PO 12/08/16 21:00 12/08/16 23:58 Physical Exam General Appearance: No Acute Distress, Pale Pulmonary Resp Exam: Breath Sounds Equal Resp Remarks Exp wheezing throughout Cardiology CV Exam: Regular, Normal Sinus Rhythm Gastrointestinal/Abdomen GI Exam: Soft, Non-Tender Integumentary Skin Exam: Clear, Warm Extremeties Extremities Exam: Trace Edema (left lower extremity), Moderate Edema (right lower extremity site of old injury and chronic), Pitting Edema, Dependent Edema Neurologic Neuro Exam: Alert, Awake, Speech Clear, Moving All Extremities Psychiatric Psych Exam: Appropriate Responses Assessment/Plan Discussed Condition With: Patient Problem List: (1) PRATIMA (acute kidney injury) Plan: No signs of renal recovery to this point. Pending HD today--continue on TTS schedule PC placement tomorrow. Phos replacement as ordered Patient has been approved for outpatient dialysis post discharge. Medications should be adjusted for the patient's estimated GFR if clinically indicated. Avoid agents with significant potential for nephrotoxicity possible including NSAIDs for analgesia, iodine contrast agents. Gadolinium is contraindicated if the GFR is below 30. (2) Rhabdomyolysis Plan: Resolved Most likely was secondary to compression injury while patient was on the floor. Patient was on a statin drug i.e. Crestor so uncertain to what degree this may have played a role also. (3) Vitamin D deficiency Plan: Vitamin D supplementation as ordered. (4) Congestive heart failure Plan: Continue by mouth furosemide and dialysis as indicated for fluid removal. (5) Vascular disease Plan: Awaiting consult with Dr. Martin (6) Anemia Plan: Repeat CBC with Fe panel. Epogen with HD Problem Qualifiers (1) Rhabdomyolysis: Qualified Code: M62.82 - Non-traumatic rhabdomyolysis Kimi Platt Dec 09, 2016 09:45
[2016-12-09] MEDS: GENTAMICIN SULFATE (DIALYSIS USE ONLY) 20 MG/2 ML VIAL IV PRN (10:30)
[2016-12-09] MEDS: ALBUMIN HUMAN 25% 25 GM/100 ML BAGP IV PRN (10:30)
[2016-12-09 10:41] LABS: MAGNESIUM 1.7 MG/DL (1.5-2.5); TRANSFERRIN IRON PROFILE 148 MG/DL (200-360)
[2016-12-09 10:44] LABS: FERRITIN 255 NG/ML (8-252)
[2016-12-09] MEDS: POTASSIUM PHOSPHATE/SODIUM PHOSPHATE 250 MG TAB PO SCH ×2 (11:00→18:21)
--- NOTE | 2016-12-09 11:33 | RADRPT ---
EXAM DATE/TIME: 12/09/2016 10:12 [facility] COMPARISON: CHEST SINGLE AP, November 27, 2016, 18:11. INDICATIONS : Patient started being short of breath this morning. MEDICAL HISTORY : Cardiovascular disease. Congestive heart failure. Hypertension. SURGICAL HISTORY : CABG. Pacemaker. ENCOUNTER: Subsequent ACUITY: 2 weeks PAIN SCORE: 0/10 LOCATION: Bilateral chest FINDINGS: Double-lumen right central line tip is projected over the cavoatrial junction. Pacer lead unchanged. Hazy opacities in the lower lungs with loss of delineation of the hemidiaphragms is similar in rebeca humphrey when compared to prior examination. CONCLUSION: Bilateral airspace opacities unchanged from prior. Juan F Sharma MD on December 09, 2016 at 11:30 Board Certified Radiologist. This report was verified electronically.
--- NOTE | 2016-12-09 12:38 | PD.CARD.PN ---
Subjective Subjective Remarks The patient feels more SOB with associated wheezing today. She is pending dialysis today. Objective Medications Current Medications Medications (Trade) Dose Ordered Sig/Francesca Route Start Time Stop Time Status Last Admin (NS Flush) 2 ml UNSCH PRN IVF 11/19/16 17:00 11/19/16 18:58 (Sodium Bicarbonate 8.4% Inj) 100 meq UNSCH PRN IV 11/19/16 18:45 (Sodium Bicarbonate 8.4% Inj) 50 meq UNSCH PRN IV 11/19/16 18:45 (Protonix Inj) 40 mg DAILY IV 11/20/16 09:00 12/09/16 09:44 (Zofran Inj) 4 mg Q6H PRN IV 11/20/16 04:15 11/21/16 08:57 Miscellaneous Information 1 Q361D XX 11/20/16 04:15 11/20/16 04:15 (Chlorhexidine 2% Cloth) Taper DAILY@04 TOP 11/21/16 04:00 11/17/17 03:59 11/23/16 04:00 (Chlorhexidine 2% Cloth) 3 pack UNSCH PRN TOP 11/20/16 04:15 (Mycostatin Cream) 1 applic Q12HR TOPICAL 11/20/16 09:00 12/09/16 00:03 (Plavix) 75 mg DAILY PO 11/21/16 09:00 Hold 12/05/16 07:46 (Vitamin D3) 2,000 units DAILY PO 11/21/16 14:15 12/09/16 09:43 (Lopressor) 25 mg Q12HR PO 11/21/16 14:00 12/09/16 09:44 (Remeron) 15 mg HS PO 11/23/16 21:00 12/08/16 23:58 (Aricept) 5 mg HS PO 11/23/16 21:00 12/08/16 23:56 (Bactroban 2% Oint) 1 applic Q12HR TOPICAL 11/24/16 10:00 12/09/16 00:03 (Tylenol) 500 mg Q4H PRN PO 11/24/16 13:30 12/04/16 16:01 Oxycodone HCl 5 mg 5 mg Q6H PRN PO 11/24/16 13:30 12/08/16 16:18 (NS 1000 ml Inj) 1,000 ml @ 0 mls/hr Q0M PRN IV 11/25/16 11:55 12/02/16 12:10 Heparin Sodium (Porcine) 8000 units 8,000 units UNSCH PRN IVF 11/25/16 12:00 11/28/16 11:35 Sodium Chloride 1,000 ml @ 200 mls/hr Q5H PRN IV 11/25/16 11:55 (NS 1000 ml Inj) 1,000 ml @ 0 mls/hr Q0M PRN IV 11/25/16 11:55 (Mannitol Inj) 12.5 gm UNSCH PRN IV 11/25/16 12:00 (Albumin 25% Inj) 25 gm UNSCH PRN IV 11/25/16 12:00 11/29/16 11:32 (NS Flush) 5 ml UNSCH PRN IV FLUSH 11/25/16 12:00 (Heparin Inj) UNSCH PRN .XX 11/25/16 12:00 12/06/16 12:38 (Gentamicin (Dialysis) Inj) 20 mg UNSCH PRN IV 11/25/16 12:00 12/06/16 12:39 (Zofran Inj) 4 mg UNSCH PRN IV 11/25/16 12:00 (Tylenol) 650 mg UNSCH PRN PO 11/25/16 12:00 11/27/16 21:21 (Benadryl) 25 mg UNSCH PRN PO 11/25/16 12:00 (Nitrostat Sl) 0.4 mg UNSCH PRN SL 11/25/16 12:00 (Catapres) 0.1 mg UNSCH PRN PO 11/25/16 12:00 (Gelfoam 12 Mm/7 Mm Top) 1 foam UNSCH PRN TOP 11/25/16 12:00 (Drisdol) 50,000 units Q7D PO 11/26/16 07:00 12/03/16 06:04 (Eliquis) 2.5 mg BID PO 11/27/16 21:00 Hold 12/07/16 22:31 (Nephrocaps) 1 cap DAILY PO 11/30/16 09:00 12/09/16 09:43 Furosemide 60 mg 60 mg BID PO 11/29/16 21:00 12/09/16 09:44 (NS 1000 ml Inj) 1,000 ml @ 0 mls/hr Q0M PRN IV 12/01/16 10:30 Heparin Sodium (Porcine) 8000 units 8,000 units UNSCH PRN IVF 12/01/16 10:30 Sodium Chloride 1,000 ml @ 200 mls/hr Q5H PRN IV 12/01/16 11:00 (NS 1000 ml Inj) 1,000 ml @ 0 mls/hr Q0M PRN IV 12/01/16 10:30 (Mannitol Inj) 12.5 gm UNSCH PRN IV 12/01/16 10:30 (Albumin 25% Inj) 25 gm UNSCH PRN IV 12/01/16 10:30 (NS Flush) 5 ml UNSCH PRN IV FLUSH 12/01/16 10:30 (Heparin Inj) UNSCH PRN .XX 12/01/16 10:30 (Gentamicin (Dialysis) Inj) 20 mg UNSCH PRN IV 12/01/16 10:30 (Zofran Inj) 4 mg UNSCH PRN IV 12/01/16 10:30 (Tylenol) 650 mg UNSCH PRN PO 12/01/16 10:30 (Benadryl) 25 mg UNSCH PRN PO 12/01/16 10:30 (Nitrostat Sl) 0.4 mg UNSCH PRN SL 12/01/16 10:30 (Catapres) 0.1 mg UNSCH PRN PO 12/01/16 10:30 (Gelfoam 12 Mm/7 Mm Top) 1 foam UNSCH PRN TOP 12/01/16 10:30 (Imdur) 30 mg DAILY@07 PO 12/02/16 07:00 12/09/16 06:12 (Marlene-Colace) 2 tab BID PRN PO 12/05/16 12:00 12/06/16 00:54 (Santyl Oint) 1 applic DAILY TOPICAL 12/06/16 09:00 12/08/16 10:22 (D50w (Vial) Inj) 25 ml UNSCH PRN IV PUSH 12/07/16 11:30 (Glucagon Inj) 1 mg UNSCH PRN OTHER 12/07/16 11:30 (Roxicodone) 5 mg Q6H PRN PO 12/08/16 10:15 (Lipitor) 80 mg HS PO 12/08/16 21:00 12/08/16 23:58 (K-Phos Neutral) 250 mg Q8H PO 12/09/16 11:00 12/10/16 10:59 Vital Signs / I&O Vital Signs Date Time Temp Pulse Resp B/P Pulse Ox O2 Delivery O2 Flow Rate FiO2 12/09/16 08:45 94 Nasal Cannula 5.00 12/09/16 08:00 97.5 61 18 139/68 92 12/09/16 00:00 97.4 76 18 120/68 96 12/08/16 21:50 94 Nasal Cannula 5.00 12/08/16 16:00 98.5 72 20 142/64 95 I/O 12/08/16 12/08/16 12/08/16 12/09/16 12/09/16 12/09/16 07:00 15:00 23:00 07:00 15:00 23:00 Intake Total 240 ml 880 ml 120 ml Output Total 600 ml 500 ml Balance -360 ml 880 ml -380 ml Intake Oral 240 ml 880 ml 120 ml Output Urine Total 600 ml 500 ml # Bowel Movements 0 0 Physical Exam GENERAL: Elderly female, awake and oriented. SKIN: Warm and dry. ecchymosis both arms HEAD: Normocephalic. EYES: No scleral icterus. No injection or drainage. NECK: Supple, trachea midline. Right IJ vasc cath, 4 cm JVD CARDIOVASCULAR: Regular rate and rhythm without murmurs, gallops, or rubs. RESPIRATORY: Breath sounds equal bilaterally. Diminished bases, wheezing GASTROINTESTINAL: Abdomen soft, non-tender, nondistended. MUSCULOSKELETAL: No cyanosis, BACK: Nontender without obvious deformity. Laboratory Laboratory Tests Test 12/08/16 12/09/16 15:22 05:56 Hemoglobin 7.2 GM/DL 7.1 GM/DL Hematocrit 21.3 % 21.4 % Sodium Level 127 MEQ/L 128 MEQ/L Potassium Level 4.8 MEQ/L 5.1 MEQ/L Chloride Level 90 MEQ/L 91 MEQ/L Carbon Dioxide Level 29.3 MEQ/L 28.8 MEQ/L Anion Gap 8 MEQ/L 8 MEQ/L Blood Urea Nitrogen 37 MG/DL 43 MG/DL Creatinine 4.29 MG/DL 4.67 MG/DL Estimat Glomerular Filtration 10 ML/MIN 9 ML/MIN Rate Random Glucose 322 MG/DL 148 MG/DL Calcium Level 7.6 MG/DL 7.9 MG/DL White Blood Count 6.0 TH/MM3 Red Blood Count 2.57 MIL/MM3 Mean Corpuscular Volume 83.2 FL Mean Corpuscular Hemoglobin 27.8 PG Mean Corpuscular Hemoglobin 33.4 % Concent Red Cell Distribution Width 15.6 % Platelet Count 130 TH/MM3 Mean Platelet Volume 9.1 FL Magnesium Level 1.7 MG/DL Iron Level 33 MCG/DL Total Iron Binding Capacity 207 MCG/DL Percent Iron Saturation 15.9 % Ferritin 255 NG/ML Imaging Last 72 hours Impressions Chest X-Ray 12/09/16 0000 Signed Impressions: Service Date/Time: Friday, December 09, 2016 10:12 - CONCLUSION: Bilateral airspace opacities unchanged from prior. Juan F Sharma MD Aorta w/Runoff CTA 12/08/16 0000 Signed Impressions: Service Date/Time: Thursday, December 08, 2016 10:49 - CONCLUSION: Advanced calcific atherosclerotic vascular disease with hemodynamically significant steno-occlusive involving the celiac artery, superior mesenteric artery, right renal arteries, external iliac arteries and superficial femoral arteries as described. Three-vessel infrapopliteal runoff with diffuse irregularity and eccentric calcified plaque Bilateral pleural effusions Cholelithiasis. Loyd Almeida MD Assessment and Plan Assessment and Plan LATE ENTRY- Patient seen and evaluated at 0930 today. ASSESSMENT Elevated troponin and T-wave flattening in an elderly female with known history of ASHD with last negative cardiac PET 2014. Recurrent episode of chest tightness after admission. Continue Plavix. No ASA AMS/unconscious, found down. Work up reveals leukocytosis, lactic acidosis, DKA and rhabdomyolysis. Etiology of cause is not completely clear. ICD interrogation negative for acute arrhythmias Renal failure- dialysis started on this admission. Makes some urine. Atrial fibrillation Hx atrial flutter s/p ablation 10/2016 ECHO EF 45-50%, Mild to mod MR and TR Hx VT s/p ICD. HTN HLD Mild to moderate carotid stenosis PAD PLAN Continue BB, diuretics, Eliquis, Plavix. Eliquis and Plavix are currently on hold for perm cath scheduled for tomorrow. Resume DANIS. More aggressive negative fluid balance. Patient making urine. Dialysis today. High potency statin started. Will complete ischemic workup outpatient. Assessment and plan discussed with Mallory Jaimes Dec 09, 2016 12:38
[2016-12-09] MEDS: HEPARIN SODIUM - IV 10,000 UNITS/10 ML VIAL PRN (13:11)
[2016-12-09] MEDS: EPOETIN ALFA 10,000 UNITS/ML VIAL IV SCH (13:11)
[2016-12-09] MEDS: SODIUM CHLOR 0.9% 1000 ML INJ 1,000 ML IV PRN (13:12)
--- NOTE | 2016-12-09 14:44 | HHI.FPPN ---
Subjective Remarks Sitting up in chair, no acute events. Resting comfortably. No difficulty breathing. No acute distress. (Chato Culp MD R2) Objective Vitals Vital Signs Date Time Temp Pulse Resp B/P Pulse Ox O2 Delivery O2 Flow Rate FiO2 12/09/16 08:45 94 Nasal Cannula 5.00 12/09/16 08:00 97.5 61 18 139/68 92 12/09/16 00:00 97.4 76 18 120/68 96 12/08/16 21:50 94 Nasal Cannula 5.00 12/08/16 16:00 98.5 72 20 142/64 95 I/O 12/08/16 12/08/16 12/08/16 12/09/16 12/09/16 12/09/16 07:00 15:00 23:00 07:00 15:00 23:00 Intake Total 240 ml 880 ml 120 ml Output Total 600 ml 500 ml 2500 ml Balance -360 ml 880 ml -380 ml -2500 ml Intake Oral 240 ml 880 ml 120 ml Output Urine Total 600 ml 500 ml Hemodialysis 2500 ml # Bowel Movements 0 0 (Chato Culp MD R2) Result Diagram: 12/09/16 0556 12/09/16 0556 Imaging Last 72 hours Impressions Chest X-Ray 12/09/16 0000 Signed Impressions: Service Date/Time: Friday, December 09, 2016 10:12 - CONCLUSION: Bilateral airspace opacities unchanged from prior. Juan F Sharma MD Aorta w/Runoff CTA 12/08/16 0000 Signed Impressions: Service Date/Time: Thursday, December 08, 2016 10:49 - CONCLUSION: Advanced calcific atherosclerotic vascular disease with hemodynamically significant steno-occlusive involving the celiac artery, superior mesenteric artery, right renal arteries, external iliac arteries and superficial femoral arteries as described. Three-vessel infrapopliteal runoff with diffuse irregularity and eccentric calcified plaque Bilateral pleural effusions Cholelithiasis. Loyd Almeida MD Objective Remarks GENERAL: Sitting up in chair, no distress SKIN: Mild pallor. No rashes. Large ecchymosis covering left forearm and distal 1/3 of left upper arm on posteromedial side. Ecchymosis of right mid-arm, left hip. These are resolving from prior exams. Cool and dry. Exam from previous days : Stage 2 sacral decubitus ulcer right buttock near midline. Stage 1 pressure ulcer right upper back, b/l heels. CARDIOVASCULAR: NRRR. Normal S1/S2. No MRG RESPIRATORY: CTAB, good air entry. No crackles noted on exam today. MUSCULOSKELETAL: Small superficial abrasion on dorsal aspect of middle finger. Slightly erythematous but evidence of cellulitis or abscess. Non-pitting edema to b/l ankles. Pulses unpalpable BLE a baseline due to existing PVD. NEUROLOGICAL: Awake and alert. Well-oriented. (Chato Culp MD R2) A/P Assessment and Plan 76 year old female with PMH of DM, AFib, COPD, CKD initially presented with DKA , rhabdomyolysis, and sepsis, now with resolved DKA, but now with acute renal failure and requiring hemodialysis. Awaiting for PermCath placement. dw Dr. Longo Discharge Planning Will need rehabilitation/SNF placement on discharge. Palliative care is involved. She wants aggressive care for the time being. Pending PermCath and setting up outpatient dialysis, likely early next week. (Chato Culp MD R2) Attending Attestation Patient seen and examined. Case reviewed and discussed with the resident team. Agree with plan of care as discussed with me and documented in the resident note. (Apple Longo MD) Problem List: (1) Acute on chronic kidney failure Status: Acute Plan: Likely multifactorial etiology, including rhabdomyolysis, ATN, cardiogenic. Creatinine reached a peak of 6.19 with BUN of 82, with decreasing urinary output and increasing potassium level, and decision was made to initiate hemodialysis. Creatinine up to 3.86 today, BUN of 28. Pitting edema present. - Nephrology on board, appreciate assistance - Hemodialysis Tues, Throverto, Sat per nephrology recs, will need outpatient dialysis. - PermCath placement scheduled for 12/10 - Holding Plavix & Eliquis per cardiology input - Resume Plavix & Eliquis DANIS after permcath placement - Monitor I&O's, urine output, electrolytes - Avoid nephrotoxic agents - Renally dose medications - Monitor electrolytes - Monitor kidney function/urine output (2) Leg pain, left Status: Acute Plan: See physical exam; several lesions noted on presentation to ICU. Do not appear acutely infected. Concern of increased pain today raises some suspicion for arterial thrombus/embolus in setting of previous severe PVD. - CTA lower extremities with runoff to assess for arterial thrombus/embolus - Wound care nurse consulted, appreciate recommendations - Topical ointments to promote healing - Air mattress - Rotate patient every 2 hours - Monitor clinically (3) Chronic obstructive lung disease Status: Chronic Plan: Lungs now clear to auscultation. Sx could have been due to COPD exacerbation versus cardiac wheezing from CHF/pulmonary fluid overload. Lasix also seems to help. - DuoNeb treatments scheduled q4hrs - Albuterol neb Q2hrs prn - Prednisone and azithromycin completed on 11/29 - Continue incentive spirometer, EZ Pap - Monitor fluid balance (4) CHF, chronic Status: Chronic Plan: Stable - Follow clinically - Continue Lopressor from home - Monitor fluid status, daily I's and O's and weights - Diuretics PRN (5) Atrial fibrillation Status: Chronic Plan: Rate controlled. Has ICD in place. - Cardiology on board, appreciate assistance - Continue Eliquis. Hold anticoagulation on 12/08 for PermCath placement on 12/[address] Ashley - Plavix currently on hold (6) Coronary artery disease Status: Chronic Plan: Presented with elevated troponin and T-wave flattening and has a history of coronary artery disease. Had negative cardiac PET in 2015. No chest pain currently. - Cardiology on board, appreciate assistance - Continue medical management with BB and isosorbide dinitrate 10 mg PO daily to treat probable anginal symptoms - High dose statin started - Plavix on hold for PermCath placement tomorrow - Stress test in the future as an outpatient. (7) Pressure ulcer Status: Acute Plan: See physical exam; several lesions noted on presentation to ICU. Do not appear acutely infected. - Wound care nurse consulted, appreciate recommendations - Topical ointments to promote healing - Air mattress - Rotate patient every 2 hours - Monitor clinically (8) Depressed Status: Resolved Plan: Significant depression with recent loss of family member. Also with significant weight loss. Symptoms seem to be improving, but she is upset about her current health status. Appetite has improved and she is eating well. Now on Remeron, moods appear much improved from admission. Still trying to encourage good nutrition, giving Ensure as a supplement. - Remeron 15 mg HS for depression and appetite stimulation (9) FEN/PPX Status: Acute Plan: Fluids: With dialysis. Monitor fluid status routinely. Electrolytes: Monitor Nutrition: Renal diet, mechanical soft consistency per speech therapy DVT: Eliquis on hold for PermCath 12/[address] Talamantes (Chato Culp MD R2) Problem Qualifiers (1) CHF, chronic: Qualified Code: I50.9 - Chronic congestive heart failure, unspecified congestive heart failure type (2) Atrial fibrillation: Qualified Code: I48.2 - Chronic atrial fibrillation (3) Coronary artery disease: Qualified Code: I25.118 - Coronary artery disease of [place] artery of [place] heart with stable angina pectoris (4) Pressure ulcer: Qualified Code: L89.301 - Decubitus ulcer of buttock, stage 1, unspecified laterality (5) Depressed: Qualified Code: F32.9 - Reactive depression Chato Culp MD R2 Dec 09, 2016 14:44 Apple Longo MD Dec 14, 2016 15:51
[2016-12-09 16:00] VITALS: BP 159/68; PULSE 84; RESP 22; TEMP 96.7
--- NOTE | 2016-12-09 18:28 | PD.CAR.PN ---
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 Nonetheless patient is elevation pallor dependent rubor varies severe vascular compromise in in absence of any surgery will likely proceed to lose her extremities if her lifespan allows for this Therefore every effort should be made to reconstruct patient's vasculature before a untoward event happens. On the other hand patient is a poor surgical candidate with coronary artery disease and we have to weigh of the risks and benefits of any procedure. Right now there is no rodriguez to do anything especially considering the fact that the patient is first time on dialysis I would let this ride out for a while and see how patient does and possibly if she is improved enough that schedule her for left external iliac angioplasty and stent with a femoropopliteal bypass Objective: Vital Signs Date Time Temp Pulse Resp B/P Pulse Ox O2 Delivery O2 Flow Rate FiO2 12/09/16 16:07 Nasal Cannula 5.00 12/09/16 16:00 96.7 84 22 159/68 12/09/16 08:45 94 Nasal Cannula 5.00 12/09/16 08:00 97.5 61 18 139/68 92 12/09/16 00:00 97.4 76 18 120/68 96 12/08/16 21:50 94 Nasal Cannula 5.00 Result Diagram: 12/09/16 0556 12/09/16 0556 Margarito Sanchez MD Dec 09, 2016 18:28
[2016-12-09 20:00] VITALS: BP 138/65; PULSE 74; RESP 18; TEMP 98.3; O2SAT 95
--- NOTE | 2016-12-09 21:49 | MB ---
cc: MARGARITO ROPER MD DATE OF CONSULTATION 12/09/16 REASON FOR CONSULTATION Peripheral vascular disease, ischemia of both feet, ischemic pain at rest of the left foot, bilateral SFA occlusions, celiac stenosis, coronary artery disease, hypertension and DKA. HISTORY OF PRESENT ILLNESS This 76-year-old lady appearing older than her actual age presented to the emergency room about two weeks ago, unresponsive being found in the apartment. The patient was worked up and, at that time, found to have diabetic ketoacidosis with rhabdomyolysis and possibly a V-tach episode. The patient was admitted to the ICU and underwent full workup. Now, the patient is on the floor awake, alert and oriented, however, slightly demented. She was complaining about the pain in her left foot lately and left calf, hence, the vascular consultation. The patient is walking very little from bed to chair and such. She is not walking distance of course. PAST MEDICAL HISTORY 1. COPD, 2. Hypertension, 3. Longstanding diabetes mellitus, 4. Atrial fibrillation for which she is anticoagulated 5. Coronary artery disease, previous coronary artery bypass graft and non-STEMI MS, 6. V-tach with defibrillator placement. 7. Previous pneumonia PAST SURGICAL HISTORY 1. Coronary artery bypass surgery in 1998, 2. Pacemaker defibrillator placement about three years ago 3. Cardioversion about three years ago. ALLERGIES There is an unusual fact that the patient is ALLERGIC TO SOME ANTIVIRAL FOR HIV but that just does not make sense. SOCIAL HISTORY The patient does not smoke, does not drink. PHYSICAL EXAMINATION GENERAL: A 76 year old lady appearing somewhat older than actual age. HEENT: Normocephalic. No trauma to the head. Pupils equally reactive. Extraocular muscles intact. NECK: Bilateral carotid pulses and bilateral bruits. CHEST Decreased breath sounds over both lung [place]. The patient has moderate to severe COPD. HEART: Irregular rhythm. She is in slow atrial fibrillation of about 90. There is pacemaker defibrillator in the left subclavian space. ABDOMEN: Soft. Active bowel sounds. EXTREMITIES: The patient has no palpable pulses in either leg. She has dopplerable femoral pulses, weak dopplerable popliteal pulses and dopplerable anterior tibial and dorsalis pedis pulses. Once down to the foot, weak posterior tibial and dorsalis pedis pulses. Capillary refill is definitely decreased. Left foot independent position gets more ruborous and with elevation more pale. The patient is hurting over the left ankle and left foot. NEUROLOGIC: The patient is awake and alert. Moves all four extremities, says she can walk very little. She has not walked while she was in the hospital. ASSESSMENT/RECOMMENDATIONS This patient has multiple medical problems and multiple comorbidities. CTA with runoff confirms the clinical impression. The patient has severe vascular disease starting below the external iliac arteries with hemodynamically significant stenosis in the proximal external iliac arteries bilaterally. The patient also has stenotic common femoral arteries and then SFA is occluded bilaterally and then reconstructs in the popliteal space. She has two-vessel runoff to the foot, actually I do not see peroneal artery on either side but it may be tiny and incomplete. At this point, in the best case scenario the patient will be a candidate for femoral-popliteal bypass on the left side with an external iliac balloon angioplasty and possible stent placement. The problem with this is the patient's coronary artery disease and frail state. The patient has not been on dialysis before, but now she is on dialysis. I would let this ride out for a bit and see how patient does. She does not have a limp threatening ischemia and her pain in the leg is definitely not from her vascular disease but probably from hitting it or an acute event. The patient does have significant vascular disease that eventually will lead to loss of the extremities. However, her other issues are now prevailing and I will just sit tight for the time being. In the best case scenario, if patient improves we can always do vascular construction. I have discussed this with the patient and her caregiver. Critical care time 40 minutes. I will continue to follow patient with you. Margarito PETERSEN /6:20 PM /9:28 PM
[2016-12-09] MEDS: DONEPEZIL HCL 5 MG TAB PO SCH (22:43)
[2016-12-09] MEDS: ATORVASTATIN 80 MG TAB PO SCH (22:43)
[2016-12-09] MEDS: MIRTAZAPINE 15 MG TAB PO SCH (22:43)
[2016-12-10] VITALS (15 sets, daily range): BP systolic 73–163; BP diastolic 43–90; PULSE 54–149; RESP 16–22; TEMP 96–98.6; O2SAT 89–97
--- NOTE | 2016-12-10 00:07 | RADRPT ---
EXAM DATE/TIME: 12/09/2016 21:44 [facility] COMPARISON: No previous studies available for comparison. INDICATIONS : Bilateral carotid bruits. Peripheral vascular disease. MEDICAL HISTORY : Myocardial infarction. Hypercholesterolemia. Congestive heart failure. Syncope. Migraines. Afib. HTN. COPD. Tuberculosis. Ovarian cysts. Arthritis. PAD. Ruptured discs in lower spine x4. Diabetes. Depre ssion. Anxiety. Anitcoagulant therapy. MRSA. ESBL Ecoli urine. SURGICAL HISTORY : Pacemaker. CABG. Hysterectomy. Bilateral cataracts. Tubal ligation. Total right knee replacement. Rig ht wrist. ENCOUNTER: Initial ACUITY: 1 day PAIN SCORE: 0/10 LOCATION: Bilateral neck PEAK SYSTOLIC VELOCITIES (cm/sec): ICA/CCA RATIO: Right: 1.3 Left: 1.3 ICA: Right: 122 Left: 114 CCA: Right: 95 Left: 96 ECA: Right: 134 Left: 172 VERTEBRAL: Right: 134 antegrade Left: 172 antegrade Elevated flow velocities and ICA/CCA ratios have been found to correlate with increased degrees of vessel stenosis, calculated as percentage of diameter relative to a normal segment of distal ICA/CCA FINDINGS: RIGHT CAROTID: No significant stenosis is visualized. Moderate atherosclerotic disease is present. The waveforms are within normal limits. Central line limits evaluation of the common carotid artery proximally. LEFT CAROTID: No significant stenosis is visualized. Moderate atherosclerotic disease identified The waveforms are within normal limits. VERTEBRAL ARTERIES: Antegrade flow is seen in both vertebral arteries. MISCELLANEOUS: None. CONCLUSION: Normal examination with moderate atherosclerotic disease. Jimbo Butler MD on December 10, 2016 at 0:05 Board Certified Radiologist. This report was verified electronically.
[2016-12-10] MEDS: RESP: ALBUTEROL 2.5 MG/3 ML NEB (PRN) INH ×2 (01:04→15:48)
[2016-12-10] MEDS: CHLORHEXIDINE GLUCONATE 2 % 1 PACK (2 CLOTHS) TOP SCH (02:22)
[2016-12-10] MEDS: POTASSIUM PHOSPHATE/SODIUM PHOSPHATE 250 MG TAB PO SCH (02:22)
[2016-12-10] MEDS ORDERED: EPINEPHrine HCL (1:10,000) 1 MG/10 ML SYRINGE IV ONE (05:00)
[2016-12-10 05:48] LABS: HEMATOCRIT 21.2 % (35.0-46.0); MEAN CELL VOLUME 83.3 FL (80.0-100.0); MEAN CORPUSCULAR HEMOGLOBIN 28.5 PG (27.0-34.0); MEAN CORPUSCULAR HGB CONC 34.3 % (32.0-36.0); PLATELET COUNT 140 TH/MM3 (150-450); RED BLOOD COUNT 2.55 MIL/MM3 (4.00-5.30); RED CELL DISTRIBUTION WIDTH 15.7 % (11.6-17.2); REVIEW FLAG FINAL; WHITE BLOOD COUNT 4.9 TH/MM3 (4.0-11.0)
[2016-12-10 06:16] LABS: BICARBONATE 29.7 MEQ/L (21.0-32.0); POTASSIUM 4.1 MEQ/L (3.5-5.1)
[2016-12-10] MEDS: ERGOCALCIFEROL (VIT D2) 50,000 UNIT CAP PO SCH (06:27)
[2016-12-10] MEDS: ISOSORBIDE MONONITRATE 30 MG TAB PO SCH (06:27)
[2016-12-10] MEDS: INSULIN ASPART SUPPLEMENTAL SCALE SQ SCH ×4 (06:28→21:00)
[2016-12-10] MEDS: RESP: ALBUTEROL 2.5 MG/IPRATROPIUM 0.5 MG NEB (SCH) NEB (07:53)
[2016-12-10] MEDS: PANTOPRAZOLE SODIUM 40 MG VIAL IV SCH (09:20)
[2016-12-10] MEDS: METOPROLOL TARTRATE 25 MG TAB PO SCH ×2 (09:23→21:00)
[2016-12-10] MEDS: VITAMIN B CMPLX/VITC/FOLIC AC CAP PO SCH (09:23)
[2016-12-10] MEDS: FUROSEMIDE 20 MG TAB PO SCH ×2 (09:23→21:00)
[2016-12-10] MEDS: CHOLECALCIFEROL (VIT D3) 1000 UNIT TAB PO SCH (09:23)
[2016-12-10] MEDS: MUPIROCIN 2% OINT 22 GM TUBE TOPICAL SCH ×2 (09:25→21:00)
[2016-12-10] MEDS: NYSTATIN 100,000 UNIT/GM CREAM 15 GM TOPICAL SCH ×2 (09:25→21:00)
[2016-12-10] MEDS: COLLAGENASE OINT 30 GM TUBE TOPICAL SCH (09:25)
--- NOTE | 2016-12-10 10:52 | PD.CARD.PN ---
Subjective Subjective Remarks Patient feels less SOB today. Denies CP. Had dialysis yesterday. Pending Permcath today. Objective Medications Current Medications Medications (Trade) Dose Ordered Sig/Francesca Route Start Time Stop Time Status Last Admin (NS Flush) 2 ml UNSCH PRN IVF 11/19/16 17:00 11/19/16 18:58 (Sodium Bicarbonate 8.4% Inj) 100 meq UNSCH PRN IV 11/19/16 18:45 (Sodium Bicarbonate 8.4% Inj) 50 meq UNSCH PRN IV 11/19/16 18:45 (Protonix Inj) 40 mg DAILY IV 11/20/16 09:00 12/10/16 09:20 (Zofran Inj) 4 mg Q6H PRN IV 11/20/16 04:15 11/21/16 08:57 Miscellaneous Information 1 Q361D XX 11/20/16 04:15 11/20/16 04:15 (Chlorhexidine 2% Cloth) 3 pack Taper DAILY@04 TOP 11/21/16 04:00 11/17/17 03:59 11/23/16 04:00 (Chlorhexidine 2% Cloth) 3 pack UNSCH PRN TOP 11/20/16 04:15 (Mycostatin Cream) 1 applic Q12HR TOPICAL 11/20/16 09:00 12/10/16 09:25 (Plavix) 75 mg DAILY PO 11/21/16 09:00 Hold 12/05/16 07:46 (Vitamin D3) 2,000 units DAILY PO 11/21/16 14:15 12/10/16 09:23 (Lopressor) 25 mg Q12HR PO 11/21/16 14:00 12/10/16 09:23 (Remeron) 15 mg HS PO 11/23/16 21:00 12/09/16 22:43 (Aricept) 5 mg HS PO 11/23/16 21:00 12/09/16 22:43 (Bactroban 2% Oint) 1 applic Q12HR TOPICAL 11/24/16 10:00 12/10/16 09:25 (Tylenol) 500 mg Q4H PRN PO 11/24/16 13:30 12/04/16 16:01 Oxycodone HCl 5 mg 5 mg Q6H PRN PO 11/24/16 13:30 12/10/16 06:27 (NS 1000 ml Inj) 1,000 ml @ 0 mls/hr Q0M PRN IV 11/25/16 11:55 12/09/16 13:12 Heparin Sodium (Porcine) 8000 units 8,000 units UNSCH PRN IVF 11/25/16 12:00 11/28/16 11:35 Sodium Chloride 1,000 ml @ 200 mls/hr Q5H PRN IV 11/25/16 11:55 (NS 1000 ml Inj) 1,000 ml @ 0 mls/hr Q0M PRN IV 11/25/16 11:55 (Mannitol Inj) 12.5 gm UNSCH PRN IV 11/25/16 12:00 12/09/16 10:30 (Albumin 25% Inj) 25 gm UNSCH PRN IV 11/25/16 12:00 12/09/16 10:30 (NS Flush) 5 ml UNSCH PRN IV FLUSH 11/25/16 12:00 (Heparin Inj) UNSCH PRN .XX 11/25/16 12:00 12/09/16 13:11 (Gentamicin (Dialysis) Inj) 20 mg UNSCH PRN IV 11/25/16 12:00 12/09/16 10:30 (Zofran Inj) 4 mg UNSCH PRN IV 11/25/16 12:00 (Tylenol) 650 mg UNSCH PRN PO 11/25/16 12:00 11/27/16 21:21 (Benadryl) 25 mg UNSCH PRN PO 11/25/16 12:00 (Nitrostat Sl) 0.4 mg UNSCH PRN SL 11/25/16 12:00 (Catapres) 0.1 mg UNSCH PRN PO 11/25/16 12:00 (Gelfoam 12 Mm/7 Mm Top) 1 foam UNSCH PRN TOP 11/25/16 12:00 (Drisdol) 50,000 units Q7D PO 11/26/16 07:00 12/10/16 06:27 (Eliquis) 2.5 mg BID PO 11/27/16 21:00 Hold 12/07/16 22:31 (Nephrocaps) 1 cap DAILY PO 11/30/16 09:00 12/10/16 09:23 Furosemide 60 mg 60 mg BID PO 11/29/16 21:00 12/10/16 09:23 (NS 1000 ml Inj) 1,000 ml @ 0 mls/hr Q0M PRN IV 12/01/16 10:30 Heparin Sodium (Porcine) 8000 units 8,000 units UNSCH PRN IVF 12/01/16 10:30 Sodium Chloride 1,000 ml @ 200 mls/hr Q5H PRN IV 12/01/16 11:00 (NS 1000 ml Inj) 1,000 ml @ 0 mls/hr Q0M PRN IV 12/01/16 10:30 (Mannitol Inj) 12.5 gm UNSCH PRN IV 12/01/16 10:30 (Albumin 25% Inj) 25 gm UNSCH PRN IV 12/01/16 10:30 (NS Flush) 5 ml UNSCH PRN IV FLUSH 12/01/16 10:30 (Heparin Inj) UNSCH PRN .XX 12/01/16 10:30 (Gentamicin (Dialysis) Inj) 20 mg UNSCH PRN IV 12/01/16 10:30 (Zofran Inj) 4 mg UNSCH PRN IV 12/01/16 10:30 (Tylenol) 650 mg UNSCH PRN PO 12/01/16 10:30 (Benadryl) 25 mg UNSCH PRN PO 12/01/16 10:30 (Nitrostat Sl) 0.4 mg UNSCH PRN SL 12/01/16 10:30 (Catapres) 0.1 mg UNSCH PRN PO 12/01/16 10:30 (Gelfoam 12 Mm/7 Mm Top) 1 foam UNSCH PRN TOP 12/01/16 10:30 (Imdur) 30 mg DAILY@07 PO 12/02/16 07:00 12/10/16 06:27 (Marlene-Colace) 2 tab BID PRN PO 12/05/16 12:00 12/06/16 00:54 (Santyl Oint) 1 applic DAILY TOPICAL 12/06/16 09:00 12/10/16 09:25 (D50w (Vial) Inj) 25 ml UNSCH PRN IV PUSH 12/07/16 11:30 (Glucagon Inj) 1 mg UNSCH PRN OTHER 12/07/16 11:30 (Roxicodone) 5 mg Q6H PRN PO 12/08/16 10:15 (Lipitor) 80 mg HS PO 12/08/16 21:00 12/09/16 22:43 (K-Phos Neutral) 250 mg Q8H PO 12/09/16 11:00 12/10/16 10:59 12/10/16 02:22 Vital Signs / I&O Vital Signs Date Time Temp Pulse Resp B/P Pulse Ox O2 Delivery O2 Flow Rate FiO2 12/10/16 08:00 97.7 65 16 116/56 96 12/10/16 07:53 92 Nasal Cannula 5.00 12/10/16 01:04 93 Nasal Cannula 5.00 12/10/16 00:00 96.0 61 20 163/68 96 12/09/16 20:00 98.3 74 18 138/65 95 12/09/16 16:07 Nasal Cannula 5.00 12/09/16 16:00 96.7 84 22 159/68 I/O 12/09/16 12/09/16 12/09/16 12/10/16 12/10/16 12/10/16 07:00 15:00 23:00 07:00 15:00 23:00 Intake Total 120 ml 480 ml 360 ml 0 ml Output Total 500 ml 2500 ml 200 ml Balance -380 ml -2020 ml 160 ml 0 ml Intake Oral 120 ml 480 ml 360 ml IV Total 0 ml 0 ml Output Urine Total 500 ml 200 ml Hemodialysis 2500 ml # Voids 2 1 # Bowel Movements 0 0 0 Physical Exam GENERAL: Elderly female, awake and oriented. SKIN: Warm and dry. ecchymosis both arms HEAD: Normocephalic. EYES: No scleral icterus. No injection or drainage. NECK: Supple, trachea midline. Right IJ vasc cath CARDIOVASCULAR: Regular rate and rhythm without gallops, or rubs. Systolic murmur RESPIRATORY: Breath sounds equal bilaterally. Diminished bases GASTROINTESTINAL: Abdomen soft, non-tender, nondistended. MUSCULOSKELETAL: No cyanosis, BACK: Nontender without obvious deformity. Laboratory Laboratory Tests Test 12/10/16 05:12 White Blood Count 4.9 TH/MM3 Red Blood Count 2.55 MIL/MM3 Hemoglobin 7.3 GM/DL Hematocrit 21.2 % Mean Corpuscular Volume 83.3 FL Mean Corpuscular Hemoglobin 28.5 PG Mean Corpuscular Hemoglobin 34.3 % Concent Red Cell Distribution Width 15.7 % Platelet Count 140 TH/MM3 Mean Platelet Volume 9.0 FL Sodium Level 132 MEQ/L Potassium Level 4.1 MEQ/L Chloride Level 94 MEQ/L Carbon Dioxide Level 29.7 MEQ/L Anion Gap 8 MEQ/L Blood Urea Nitrogen 31 MG/DL Creatinine 3.16 MG/DL Estimat Glomerular Filtration 14 ML/MIN Rate Random Glucose 149 MG/DL Calcium Level 8.5 MG/DL Imaging Last 72 hours Impressions Chest X-Ray 12/09/16 0000 Signed Impressions: Service Date/Time: Friday, December 09, 2016 10:12 - CONCLUSION: Bilateral airspace opacities unchanged from prior. Juan F Sharma MD Carotid Artery Ultrasound 12/09/16 0000 Signed Impressions: Service Date/Time: Friday, December 09, 2016 21:44 - CONCLUSION: Normal examination with moderate atherosclerotic disease. Jimbo Butler MD Aorta w/Runoff CTA 12/08/16 0000 Signed Impressions: Service Date/Time: Thursday, December 08, 2016 10:49 - CONCLUSION: Advanced calcific atherosclerotic vascular disease with hemodynamically significant steno-occlusive involving the celiac artery, superior mesenteric artery, right renal arteries, external iliac arteries and superficial femoral arteries as described. Three-vessel infrapopliteal runoff with diffuse irregularity and eccentric calcified plaque Bilateral pleural effusions Cholelithiasis. Loyd Almeida MD Assessment and Plan Assessment and Plan ASSESSMENT Elevated troponin and T-wave flattening in an elderly female with known history of ASHD with last negative cardiac PET 2014. Recurrent episode of chest tightness after admission. Continue Plavix. No ASA AMS/unconscious, found down. Work up reveals leukocytosis, lactic acidosis, DKA and rhabdomyolysis. Etiology of cause is not completely clear. ICD interrogation negative for acute arrhythmias Renal failure- dialysis started on this admission. Makes some urine. Atrial fibrillation Hx atrial flutter s/p ablation 10/2016 ECHO EF 45-50%, Mild to mod MR and TR Hx VT s/p ICD. HTN HLD Mild to moderate carotid stenosis PAD PLAN Continue BB, diuretics, Eliquis, Plavix. Eliquis and Plavix are currently on hold for perm cath scheduled for today. Resume DANIS. Continue high potency statin Dr Mcnamara, Vascular surgery, recommended fem-pop bypass, but will hold off surgery at this time. On signs of acute limb ischemia. Will complete ischemic workup outpatient. Assessment and plan discussed with Mallory Jaimes Dec 10, 2016 10:52
[2016-12-10 11:59] LABS: APTT (PATIENT) 29.6 SEC (24.3-30.1); INTERNATIONAL NORMALIZED RATIO 1.1 RATIO
[2016-12-10] MEDS ORDERED: VANCOMYCIN INJ 1,000 MG in SODIUM CHLOR 0.9% 250 ML INJ 250 ML IV SCH (13:00)
[2016-12-10] MEDS ORDERED: LEVOFLOXACIN 500 MG PREMIX INJ 100 ML IV SCH (13:00)
--- NOTE | 2016-12-10 14:03 | HHI.FPPN ---
Subjective Remarks No events overnight. Resting in bed currently. Reports breathing is doing ok. Leg pains have decreased. No chest pain. No abdominal pain or nausea, vomiting, diarrhea. (Chato Culp MD R2) Objective Vitals Vital Signs Date Time Temp Pulse Resp B/P Pulse Ox O2 Delivery O2 Flow Rate FiO2 12/10/16 12:00 98.6 58 17 126/62 97 12/10/16 08:00 97.7 65 16 116/56 96 12/10/16 07:53 92 Nasal Cannula 5.00 12/10/16 01:04 93 Nasal Cannula 5.00 12/10/16 00:00 96.0 61 20 163/68 96 12/09/16 20:00 98.3 74 18 138/65 95 12/09/16 16:07 Nasal Cannula 5.00 12/09/16 16:00 96.7 84 22 159/68 I/O 12/09/16 12/09/16 12/09/16 12/10/16 12/10/16 12/10/16 07:00 15:00 23:00 07:00 15:00 23:00 Intake Total 120 ml 480 ml 360 ml 0 ml Output Total 500 ml 2500 ml 200 ml Balance -380 ml -2020 ml 160 ml 0 ml Intake Oral 120 ml 480 ml 360 ml IV Total 0 ml 0 ml Output Urine Total 500 ml 200 ml Hemodialysis 2500 ml # Voids 2 1 # Bowel Movements 0 0 0 (Chato Culp MD R2) Result Diagram: 12/10/16 0512 12/10/16 0512 Imaging Last 72 hours Impressions Chest X-Ray 12/09/16 0000 Signed Impressions: Service Date/Time: Friday, December 09, 2016 10:12 - CONCLUSION: Bilateral airspace opacities unchanged from prior. Juan F Sharma MD Carotid Artery Ultrasound 12/09/16 0000 Signed Impressions: Service Date/Time: Friday, December 09, 2016 21:44 - CONCLUSION: Normal examination with moderate atherosclerotic disease. Jimbo Butler MD Aorta w/Runoff CTA 12/08/16 0000 Signed Impressions: Service Date/Time: Thursday, December 08, 2016 10:49 - CONCLUSION: Advanced calcific atherosclerotic vascular disease with hemodynamically significant steno-occlusive involving the celiac artery, superior mesenteric artery, right renal arteries, external iliac arteries and superficial femoral arteries as described. Three-vessel infrapopliteal runoff with diffuse irregularity and eccentric calcified plaque Bilateral pleural effusions Cholelithiasis. Loyd Almeida MD Objective Remarks GENERAL: Sitting up in chair, no distress SKIN: Mild pallor. No rashes. Large ecchymosis covering left forearm and distal 1/3 of left upper arm on posteromedial side. Ecchymosis of right mid-arm, left hip. These are resolving from prior exams. Exam from previous days: Stage 2 sacral decubitus ulcer right buttock near midline. Stage 1 pressure ulcer right upper back, b/l heels. CARDIOVASCULAR: NRRR. Normal S1/S2. No MRG RESPIRATORY: CTAB, good air entry. No crackles noted on exam today. MUSCULOSKELETAL: Small superficial abrasion on dorsal aspect of middle finger. Slightly erythematous but evidence of cellulitis or abscess. Non-pitting edema to b/l ankles. NEUROLOGICAL: Awake and alert. Well-oriented. (Chato Culp MD R2) A/P Assessment and Plan 76 year old female with PMH of DM, AFib, COPD, CKD initially presented with DKA , rhabdomyolysis, and sepsis, now with resolved DKA, but now with acute renal failure and requiring hemodialysis. Awaiting for PermCath placement today. dw Dr. Longo Discharge Planning Will need rehabilitation/SNF placement on discharge. Pending PermCath placement and setting up outpatient dialysis, likely today. (Chato Culp MD R2) Attending Attestation Patient seen and examined. Case reviewed and discussed with the resident team. Agree with plan of care as discussed with me and documented in the resident note. (Apple Longo MD) Problem List: (1) Acute on chronic kidney failure Status: Acute Plan: Likely multifactorial etiology, including rhabdomyolysis, ATN, cardiogenic. Creatinine reached a peak of 6.19 with BUN of 82, with decreasing urinary output and increasing potassium level, and decision was made to initiate hemodialysis. - Nephrology on board, appreciate assistance - Hemodialysis Tues, Thurs, Sat per nephrology recs, will receive outpatient dialysis. - PermCath placement scheduled for today - Holding Plavix & Eliquis per cardiology input - Resume Plavix & Eliquis DANIS after PermCath placement - Monitor I&O's, urine output, electrolytes - Avoid nephrotoxic agents - Renally dose medications - Monitor electrolytes - Monitor kidney function/urine output (2) Chronic obstructive lung disease Status: Chronic Plan: Lungs now clear to auscultation. Sx could have been due to COPD exacerbation versus cardiac wheezing from CHF/pulmonary fluid overload. Lasix also seems to help. - Albuterol neb Q2hrs prn - Prednisone and azithromycin completed on 11/29 - Continue incentive spirometer, EZ Pap (3) CHF, chronic Status: Chronic Plan: History of CHF - Continue Lopressor from home - Lasix PRN for fluid overload - No steve inhibitor due to PRATIMA - Monitor fluid status, daily I's and O's and weights - Limit salt and fluid intake (4) Peripheral arterial disease Status: Chronic Plan: History of PAD, had leg pain during this hospital stay. Has wounds, see physical exam for details. - Wound care nurse consulted, appreciate recommendations - Topical ointments to promote healing - Air mattress - Rotate patient every 2 hours - Monitor clinically - CTA performed showing significant PAD, but risks of intervention outweigh benefits due to comorbid conditions. (5) Atrial fibrillation Status: Chronic Plan: Rate controlled. Has ICD in place. - Cardiology on board, appreciate assistance - Continue Eliquis. Hold anticoagulation on 12/08 for PermCath placement on 12/10 , restart after procedure. - Plavix currently on hold, restart after procedure. (6) Coronary artery disease Status: Chronic Plan: Presented with elevated troponin and T-wave flattening and has a history of coronary artery disease. Had negative cardiac PET in 2014. No chest pain currently. - Cardiology on board, appreciate assistance - Continue medical management with BB and isosorbide dinitrate 10 mg PO daily to treat probable anginal symptoms - High dose statin - Plavix on hold for PermCath placement, replace afterwards - Stress test in the future as an outpatient. (7) Pressure ulcer Status: Acute Plan: See physical exam; several lesions noted on presentation to ICU. Do not appear acutely infected. - Wound care nurse consulted, appreciate recommendations - Topical ointments to promote healing - Air mattress - Rotate patient every 2 hours - Monitor clinically (8) Depressed Status: Resolved Plan: Significant depression with recent loss of family member. Also with significant weight loss. Symptoms seem to be improving, but she is upset about her current health status. Appetite has improved and she is eating well. Now on Remeron, moods appear much improved from admission. Still trying to encourage good nutrition, giving Ensure as a supplement. - Remeron 15 mg HS for depression and appetite stimulation (9) FEN/PPX Status: Acute Plan: Fluids: With dialysis. Monitor fluid status routinely. Electrolytes: Monitor Nutrition: Renal diet, mechanical soft consistency per speech therapy DVT: Eliquis on hold for PermCath 12/10, restart afterwards (Chato Culp MD R2) Problem Qualifiers (1) CHF, chronic: Qualified Code: I50.9 - Chronic congestive heart failure, unspecified congestive heart failure type (2) Atrial fibrillation: Qualified Code: I48.2 - Chronic atrial fibrillation (3) Coronary artery disease: Qualified Code: I25.118 - Coronary artery disease of sitka artery of sitka heart with stable angina pectoris (4) Pressure ulcer: Qualified Code: L89.301 - Decubitus ulcer of buttock, stage 1, unspecified laterality (5) Depressed: Qualified Code: F32.9 - Reactive depression Chato Culp MD R2 Dec 10, 2016 14:03 Apple Longo MD Dec 14, 2016 15:51
[2016-12-10] MEDS ORDERED: LIDOCAINE 1%/EPINEPHrine 1:100,000 SOLN 20 ML VIAL ONE (14:13)
[2016-12-10] MEDS ORDERED: fentaNYL CITRATE 250 MCG/5 ML AMP ONE (14:16)
[2016-12-10] MEDS ORDERED: MIDAZOLAM HCL 5 MG/5 ML VIAL ONE (14:16)
--- NOTE | 2016-12-10 14:59 | PD.RAD ---
Post Procedure Progress Note Pre Procedure Diagnosis: (1) Chronic kidney disease (CKD) Post Procedure Diagnosis: (1) Chronic kidney disease Procedure Date: Dec 10, 2016 Supervising Radiologist: Chad Nelson Proceduralist/Assist: Bessie Drummond, RT(R)(CV), Mandy Parker RT(R) Anesthesia: Local, Analgesia, Conscious Sedation Plan of Activity Patient to Unit: ROPU Patient Condition: Good See PACS Report for procedural detail/treatment Central Venous Access Device Procedure 1 Right Internal Jug[facility]od[facility] dual [facility] Welsh: 15 PICC Line Length (cm): 23 Chad Nelson MD Dec 10, 2016 14:59
[2016-12-10] MEDS ORDERED: SODIUM CHLORIDE 0.9% FLUSH 10 ML FLUSH IVF PRN (15:00)
[2016-12-10] MEDS ORDERED: HEPARIN SODIUM - IV 2,000 UNITS/2 ML VIAL IV FLUSH PRN (15:00)
[2016-12-10] MEDS ORDERED: FURO20TA PO (15:04)
[2016-12-10] MEDS ORDERED: MIRTA15 PO (15:04)
[2016-12-10] MEDS ORDERED: COLL30T TOPICAL (15:04)
[2016-12-10] MEDS ORDERED: VITA100018 PO (15:04)
--- NOTE | 2016-12-10 15:06 | HHI.DCPOC ---
Discharge Care Plan Diagnosis: (1) Acute renal insufficiency (2) CHF (congestive heart failure) (3) CAD (coronary artery disease) (4) Peripheral arterial disease (5) DM (diabetes mellitus screen) (6) Pressure ulcer (7) Diabetic ketoacidosis (8) Rhabdomyolysis Goals to Promote Your Health * To prevent worsening of your condition and complications * To maintain your health at the optimal level Directions to Meet Your Goals Take your medications as prescribed Follow your dietary instruction Follow activity as directed Keep your appointments as scheduled Take your immunizations and boosters as scheduled If your symptoms worsen call your PCP, if no PCP go to Urgent Care Center or Emergency Room Smoking is Dangerous to Your Health. Avoid second hand smoke Call the 24-hour hour crisis hotline for domestic abuse at Anthony Kimbrough MD R1 Dec 10, 2016 15:06
[2016-12-10] MEDS ORDERED: methylPREDNISolone SOD SUCC 125 MG/2 ML VIAL IV PUSH ONE (15:15)
[2016-12-10] MEDS ORDERED: RESP: ALBUTEROL 2.5 MG/3 ML NEB (SCH) ONE ×2 (15:42→15:52)
[2016-12-10] MEDS ORDERED: RESP: LIDOCAINE HCL 4% PF 5 ML NEB ONE (16:05)
[2016-12-10] MEDS ORDERED: methylPREDNISolone SOD SUCC 125 MG/2 ML VIAL ONE (16:32)
--- NOTE | 2016-12-10 16:54 | HHI.FPPN ---
Addendum to progress note ADDENDUM Reason for addendum: Additonal documentation Additional information 76 year old female with history of COPD, CHF, ESRD on dialysis was getting PermCath and had respiratory distress. Residents notified once patient was in the ICU. At this time, she has stridor, using intercostal muscles to breath. She is speaking short sentences and is answering questions appropriately. A Halicat was called for respiratory distress. She was given IV epinephrine and racemic epinephrine in the ROCU. Vitals: Non-rebreather mask, O2 saturation 100% PE: Gen: Sitting up in bed, speaking in short sentences, using accessory muscles to breath, on non-rebreather mask, mild distress CV: RRR, no murmur Resp: Stridorous breathing, some basilar crackles, air entry present bilaterally Abdomen: Soft, nontender, normal bowel sounds Ext: Trace edema in lower extremities Assessment: acute respiratory distress [id number] placement DDx: allergic reaction, aspiration/laryngospasm, pneumothorax, COPD exacerbation , fluid overload Plan: - Solumedrol 125 mg now, 80 mg q12hrs - DuoNeb treatment now, continue q4hrs - Albuterol q2hrs PRN - Place in ICU, consult prop maker, discussed case with Dr. Robert - EKG and troponin stat - Hydralazine PRN, keep good blood pressure control - Will add basal insulin to her sliding scale regimen while getting steroid treatments - Will discuss with Dr. Longo - Will discuss with Dr. Talamantes, her primary care physician Seen with Dr. Kimbrough, discussed with Dr. Robert at bedside Chato Culp MD R2 Dec 10, 2016 16:54
[2016-12-10] MEDS ORDERED: hydrALAZINE HCL 20 MG/ML VIAL IV PUSH PRN (17:00)
--- NOTE | 2016-12-10 17:20 | RADRPT ---
EXAM DATE/TIME: 12/10/2016 17:04 [facility] COMPARISON: CHEST SINGLE AP, December 09, 2016, 10:12. INDICATIONS : Dyspnea, wheezing. MEDICAL HISTORY : Recent helicat. SURGICAL HISTORY : Pacemaker. CABG. ENCOUNTER: Initial ACUITY: 1 day PAIN SCORE: Non-responsive. LOCATION: Bilateral chest FINDINGS: There are increasing consolidative infiltrates the mid and lower lungs bilaterally and bilateral pleu ral effusions. There is complete loss of both hemidiaphragms. A multilumen catheter on the right si de has tips in the distal superior vena cava and right atrium. Cardiac pacer in place. Median marin otomy wires. There is a density interface superimposed upon the upper right chest which extends acro ss the midline and into the right axilla, suggesting this represents a skinfold. CONCLUSION: Increasing bilateral lower lung consolidation and bilateral pleural effusions. Juan F Sharma MD on December 10, 2016 at 17:16 Board Certified Radiologist. This report was verified electronically.
[2016-12-10 17:29] LABS: BLOOD GAS BASE EXCESS -0.9 mmol/L (-2-2); BLOOD GAS HCO3 23 mmol/L (22-26); BLOOD GAS O2 HGB SATURATION 95 % (90-100); BLOOD GAS OXYGEN CONTENT 10.1 Vol % (12.0-20.0); BLOOD GAS PCO2 38 mmHg (38-42); BLOOD GAS PO2 120 mmHg (61-120); BLOOD GAS TOTAL HGB 7.3 G/DL (12.0-16.0); CRITICAL VALUE NO; DRAW SITE RT RADIAL; LITER FLOW 15 L/M; NUMBER OF ARTERIAL PUNCTURES 1; STAT NO; TEMP CORR TO 98.6; ULNAR PULSE PRESENT
[2016-12-10 17:30] LABS: FIO2 100 %
--- NOTE | 2016-12-10 17:35 | HHI.CCPN ---
Subjective Remarks/Hospital Course 76-year-old female, [facility] resident, with past medical history of diabetes, hypertension, COPD, atrial fibrillation on chronic anticoagulation with Eliquis, coronary artery disease with prior 3 vessel CABG, ICD placement due to V tach, who is brought into [facility] emergency department after she was found down in her apartment with glucose reading "high" with AMS. Patient not able to provide history. Her neighbor says she last saw her 24 hours prior. She is in DKA, acute rhabdomyolysis, PRATIMA overlying CKD stage III, febrile with WBC 15.7, and lactic acidemia. CT brain is negative. U/a with rare bacteria. CXR with LLL infiltrate. Has multiple abx allergies and is noted to have allergies to some HIV meds??? Received aztreonam, vancomycin, flagyl, 1 L NS bolus and was started on DKA protocol in the ED. Her friend states she has been very depressed lately after the of her son 1-2 months ago. She has been taking nitroglycerin sublingual frequently. She has been admitted in the past in January 2016 for DKA when she decided to quit taking insulin. SUBJ 11/10/16: Blood sugar better controlled and 150s. IV insulin discontinued and sliding scale started. Patient is more awake and following commands alert. Troponin trending down. 2-D echo shows no wall motion abnormalities but mild to moderate MR, EF 45-50%. Creatinine remains elevated at 2.56 urine output 1.3 L since admission to ICU 11/21 Patient is lying in bed in NAD. Afebrile. On Heparin drip. Afebrile. Renal function worse today with Cr: 3.48 from 3.05 and UO;600ml in 24 hrs. 11/22 No acute events overnight, off heparin drip renal function worse today with Cr: 4.65 from 3.48 and UO: 550 ml in 24 hrs 12/10: Critical care medicine we consulted following Jenifer today. Patient had a Vas-Cath which was switched out over a guidewire to perm catheter by interventional radiology shortly after which she became short of breath with wheezing/stridor. There was some question of allergic reaction. She did receive Versed and fentanyl during the procedure for sedation. Patient received 3 doses of epinephrine IV and 1 dose of racemic epinephrine nebulizer treatment. She was subsequently transported to [facility] by Dr. Quinn and rapid response team where I took over patient care. At the time of my evaluation she was on a nonrebreather facemask O2 and her speech was normal with no hoarseness however she was in significant respiratory distress using accessory muscles of respiration with audible wheezing. She denied any chest pain. She is awake and alert and following commands and speaking appropriately. History is obtained by reviewing records and discussion with Dr. Quinn and family medicine team. Objective Vital Signs Date Time Temp Pulse Resp B/P Pulse Ox O2 Delivery O2 Flow Rate FiO2 12/10/16 15:35 55 20 118/55 92 12/10/16 15:05 98.0 12/10/16 07:53 Nasal Cannula 5.00 Intake and Output 12/09/16 12/09/16 12/10/16 08:00 16:00 00:00 Intake Total 120 ml 480 ml 360 ml Output Total 500 ml 2500 ml 200 ml Balance -380 ml -2020 ml 160 ml Result Diagram: 12/10/16 0512 12/10/16 0512 Imaging Chest x-ray portable which was personally reviewed: PermCath/ICD in place, chronic right pleural effusion, no pneumothorax, hyperinflated lung [place], increasing bibasilar consolidation/atelectasis Objective Remarks GENERAL: Patient is lying in bed in NAD SKIN: Warm and dry. HEENT: Normocephalic. No scleral icterus. No injection or drainage. Pallor present. Tongue moist NECK: Supple, trachea midline. No JVD or lymphadenopathy. CARDIOVASCULAR: Regular rate and rhythm 2/6 systolic murmur apex. RESPIRATORY: Breath sounds equal bilaterally. Using accessory muscles of respiration, bilateral wheezing, no crackles. GASTROINTESTINAL: Abdomen soft, non-tender, nondistended. Bowel sounds present MUSCULOSKELETAL: No cyanosis, or edema. Neuro: Awake alert oriented 3, nonfocal grossly. A/P Assessment and Plan NEURO: Dementia CT brain negative for acute abnormality 11/19/16 CT C-spine - grade I retrolisthesis C3 in relation C2 and C4 and C in relation Cf. Degenerative changes Monitor neuro status and avoid sedatives. RESP: COPD exacerbation Acute respiratory failure Suspected aspiration versus allergy reaction Reason aspiration pneumonia (completed antibiotic treatment) 3 epinephrine injections followed by racemic epinephrine in ROPU for questionable allergic reaction. Appears to have bilateral bronchospasm suspect COPD exacerbation possibly from aspiration during sedation. Started on Solu-Medrol 125 mg IV stat followed by 80 mg IV every 12 hourly. DuoNeb nebulizer treatments every 4 hourly and every 2 hourly when necessary. On nonrebreather facemask O2, will use BiPAP in v/o worsening respiratory status. If respiratory status declines further may require endotracheal intubation. Chest x-ray does not show any pneumothorax shows new PermCath in place, ICD in place and chronic pleural effusions bilaterally. CV: NSTEMI h/o Atrial fibrillation h/o Vtach s/p pacemaker ICD h/o CAD and prior VA Systolic heart failure On ASA 81mg daily, by mouth Lopressor. Eliquis and Plavix held for PermCath placement, resume tomorrow. Continue Lasix 60 mg by mouth twice a day. Patient to be dialyzed for fluid removal tomorrow. Lasix 80 mg IV stat Hydralazine when necessary to keep systolic blood pressure less than 160 mmHg. Check 12-lead EKG, cardiac enzymes. Dr. bruner cardiology 11/19 F/u [id number]-NoWIA EF 45-50%. Dilated LA GI: Elevated LFT's ( trending down) Protonix 40 mg daily Keep nothing by mouth for now in view of borderline respiratory status US abdomen: Dilated common bile duct measuring 11 mm. Thick-walled stone- containing gallbladder with minimal pericholecystic fluid. Mild hepatomegaly. Small right pleural effusion. FEN/RENAL: Acute kidney injury overlying CKD stage III Monitor renal function, I/O's, avoid nephrotoxins Renal-Dr. Valdes- continue hemodialysis next session scheduled for 12/11. Remains on diuretics. Vas-Cath switch to PermCath on 12/10 by interventional radiology ID: LLL community acquired vs aspiration Pneumonia Empirically treated with meropenem (history of PCN and cephalosporin allergy) and vancomycin by ID. has been off antibiotics for a few weeks now. Per my discussion with family medicine service, patient apparently does not have HIV. Her HIV screen was negative during this admission. HEME: Monitor CBC ENDO: Diabetes mellitus DKA - resolved On SSI( medium scale) PROPH: Protonix 40 mg IV daily. Resume Eliquis for anticoagulation on 12/11 ACCESS: PIV providing adequate access at this time. Time spent on critical care excluding procedures 45 minutes Taqueria Robert MD Dec 10, 2016 17:35
[2016-12-10] MEDS ORDERED: FUROSEMIDE 100 MG/10 ML VIAL IV PUSH ONE (18:00)
[2016-12-10 18:06] LABS: AUTOMATED NEUTROPHIL # 2.3 TH/MM3 (1.8-7.7); BASOPHIL % 0.2 % (0.0-2.0); EOSINOPHIL % 0.4 % (0.0-4.0); HEMO FLAGS DIFF FINAL; LYMPH % 4.6 % (9.0-44.0); LYMPHOCYTE # 0.1 TH/MM3 (1.0-4.8); MEAN CELL VOLUME 83.7 FL (80.0-100.0); MEAN CORPUSCULAR HEMOGLOBIN 28.5 PG (27.0-34.0); MEAN CORPUSCULAR HGB CONC 34.1 % (32.0-36.0); MONO % 0.5 % (0.0-8.0); NEUT % 94.3 % (16.0-70.0); PLATELET COUNT 156 TH/MM3 (150-450); RED BLOOD COUNT 2.63 MIL/MM3 (4.00-5.30); RED CELL DISTRIBUTION WIDTH 15.8 % (11.6-17.2); WHITE BLOOD COUNT 2.4 TH/MM3 (4.0-11.0)
[2016-12-10 18:42] LABS: CREATINE KINASE 75 U/L (26-192)
[2016-12-10] MEDS ORDERED: NOREPINEPHRINE-DEXTROSE DRIP 250 ML IV ONE (19:42)
[2016-12-10] MEDS ORDERED: ALBUMIN HUMAN 5% 25 GM/500 ML BOTTLE ONE (19:57)
[2016-12-10] MEDS ORDERED: methylPREDNISolone SOD SUCC 125 MG/2 ML VIAL IV PUSH SCH (21:00)
[2016-12-10] MEDS: MIRTAZAPINE 15 MG TAB PO SCH (22:31)
[2016-12-10] MEDS: ATORVASTATIN 80 MG TAB PO SCH (22:31)
[2016-12-10] MEDS: DONEPEZIL HCL 5 MG TAB PO SCH (22:32)
[2016-12-10 23:19] LABS: BICARBONATE 22.3 MEQ/L (21.0-32.0); POTASSIUM 4.3 MEQ/L (3.5-5.1)
[2016-12-10] MEDS ORDERED: SODIUM CHLORID 0.9% 500 ML INJ 500 ML IV ONE (23:30)
[2016-12-10] MEDS ORDERED: ALBUMIN HUMAN 5% 25 GM/500 ML BOTTLE IV ONE (23:30)
[2016-12-10] MEDS ORDERED: NOREPINEPHRINE 4 MG/D5W 250 ML IV SCH (23:30)
[2016-12-11] VITALS (15 sets, daily range): BP systolic 91–140; BP diastolic 57–103; PULSE 51–76; RESP 13–31; TEMP 97.2–98.7; O2SAT 93–98
[2016-12-11] MEDS: RESP: ALBUTEROL 2.5 MG/IPRATROPIUM 0.5 MG NEB (SCH) NEB ×7 (00:33→23:15)
[2016-12-11] MEDS: CHLORHEXIDINE GLUCONATE 2 % 1 PACK (2 CLOTHS) TOP SCH (04:00)
[2016-12-11 04:59] LABS: MEAN CELL VOLUME 84.5 FL (80.0-100.0); MEAN CORPUSCULAR HEMOGLOBIN 28.7 PG (27.0-34.0); MEAN CORPUSCULAR HGB CONC 33.9 % (32.0-36.0); PLATELET COUNT 115 TH/MM3 (150-450); RED BLOOD COUNT 2.37 MIL/MM3 (4.00-5.30); RED CELL DISTRIBUTION WIDTH 16.1 % (11.6-17.2); WHITE BLOOD COUNT 5.4 TH/MM3 (4.0-11.0)
[2016-12-11] MEDS ORDERED: methylPREDNISolone SOD SUCC 125 MG/2 ML VIAL IV PUSH SCH (05:00)
[2016-12-11 05:09] LABS: REVIEW FLAG FINAL
[2016-12-11] MEDS: ISOSORBIDE MONONITRATE 30 MG TAB PO SCH (05:40)
[2016-12-11] MEDS: INSULIN ASPART SUPPLEMENTAL SCALE SQ SCH ×4 (06:22→20:37)
--- NOTE | 2016-12-11 08:05 | HHI.CCPN ---
Subjective Remarks/Hospital Course 76-year-old female, [facility] resident, with past medical history of diabetes, hypertension, COPD, atrial fibrillation on chronic anticoagulation with Eliquis, coronary artery disease with prior 3 vessel CABG, ICD placement due to V tach, who is brought into [facility] emergency department after she was found down in her apartment with glucose reading "high" with AMS. Patient not able to provide history. Her neighbor says she last saw her 24 hours prior. She is in DKA, acute rhabdomyolysis, PARTIMA overlying CKD stage III, febrile with WBC 15.7, and lactic acidemia. CT brain is negative. U/a with rare bacteria. CXR with LLL infiltrate. Has multiple abx allergies and is noted to have allergies to some HIV meds??? Received aztreonam, vancomycin, flagyl, 1 L NS bolus and was started on DKA protocol in the ED. Her friend states she has been very depressed lately after the of her son 1-2 months ago. She has been taking nitroglycerin sublingual frequently. She has been admitted in the past in January 2016 for DKA when she decided to quit taking insulin. SUBJ 11/10/16: Blood sugar better controlled and 150s. IV insulin discontinued and sliding scale started. Patient is more awake and following commands alert. Troponin trending down. 2-D echo shows no wall motion abnormalities but mild to moderate MR, EF 45-50%. Creatinine remains elevated at 2.56 urine output 1.3 L since admission to ICU 11/21 Patient is lying in bed in NAD. Afebrile. On Heparin drip. Afebrile. Renal function worse today with Cr: 3.48 from 3.05 and UO;600ml in 24 hrs. 11/22 No acute events overnight, off heparin drip renal function worse today with Cr: 4.65 from 3.48 and UO: 550 ml in 24 hrs 12/10: Critical care medicine we consulted following Jenifer today. Patient had a Vas-Cath which was switched out over a guidewire to perm catheter by interventional radiology shortly after which she became short of breath with wheezing/stridor. There was some question of allergic reaction. She did receive Versed and fentanyl during the procedure for sedation. Patient received 0.3mg of epinephrine IV and 1 dose of racemic epinephrine nebulizer treatment. She was subsequently transported to [facility] by Dr. Quinn and rapid response team where I took over patient care. At the time of my evaluation she was on a nonrebreather facemask O2 and her speech was normal with no hoarseness however she was in significant respiratory distress using accessory muscles of respiration with audible wheezing. She denied any chest pain. She is awake and alert and following commands and speaking appropriately. History is obtained by reviewing records and discussion with Dr. Harris and family medicine team. 12/11: Resting comfortably in bed. Denies any shortness of breath or wheezing currently. Her respiratory status has improved significantly overnight. Off BiPAP on nasal cannula currently. Hemoglobin at 6.9 this morning. 2 units PRBCs ordered, to be dialyzed today. Objective Vital Signs Date Time Temp Pulse Resp B/P Pulse Ox O2 Delivery O2 Flow Rate FiO2 12/11/16 06:00 71 12/11/16 04:00 97.2 27 91/59 97 12/11/16 00:40 5.00 12/10/16 21:12 40 12/10/16 07:53 Nasal Cannula Intake and Output 12/10/16 12/10/16 12/11/16 08:00 16:00 00:00 Intake Total 0 ml 0 ml 22 ml Output Total 100 ml 1175 ml Balance 0 ml -100 ml -1153 ml Result Diagram: 12/11/16 0349 12/10/16 2251 Other Results Laboratory Tests Test 12/10/16 17:20 Blood Gas Puncture Site RT RADIAL Blood Gas Patient Temperature 98.6 Blood Gas HCO3 23 mmol/L (22-26) Blood Gas Base Excess -0.9 mmol/L (-2-2) Blood Gas Oxygen Saturation 95 % (90-100) Arterial Blood pH 7.41 (7.380-7.420) Arterial Blood Partial 38 mmHg (38-42) Pressure CO2 Arterial Blood Partial 120 mmHg Pressure O2 (61-120) Arterial Blood Oxygen Content 10.1 Vol % (12.0-20.0) Arterial Blood 2.0 % (0-4) Carboxyhemoglobin Arterial Blood Methemoglobin 1.0 % (0-2) Blood Gas Hemoglobin 7.3 G/DL (12.0-16.0) Oxygen Delivery Device Non-Rebreathing Mask Blood Gas Liter Flow 15 L/M Blood Gas Inspired Oxygen 100 % Imaging Chest x-ray portable which was personally reviewed: PermCath/ICD in place, chronic right pleural effusion, no pneumothorax, hyperinflated lung [place], increasing bibasilar consolidation/atelectasis Objective Remarks GENERAL: Patient is lying in bed in NAD SKIN: Warm and dry. HEENT: Normocephalic. No scleral icterus. No injection or drainage. Pallor present. Tongue moist NECK: Supple, trachea midline. No JVD or lymphadenopathy. CARDIOVASCULAR: Regular rate and rhythm 2/6 systolic murmur apex. RESPIRATORY: Breath sounds equal bilaterally. No wheezing or crackles. No accessory muscle use GASTROINTESTINAL: Abdomen soft, non-tender, nondistended. Bowel sounds present MUSCULOSKELETAL: No cyanosis, or edema. Neuro: Awake alert oriented 3, nonfocal grossly. A/P Assessment and Plan NEURO: Dementia CT brain negative for acute abnormality 11/19/16 CT C-spine - grade I retrolisthesis C3 in relation C2 and C4 and C in relation Cf. Degenerative changes Monitor neuro status and avoid sedatives. RESP: COPD exacerbation Acute respiratory failure Suspected aspiration versus allergy reaction Reason aspiration pneumonia (completed antibiotic treatment) 0.3mg epinephrine injection followed by racemic epinephrine in ROPU for questionable allergic reaction. Probably had bronchospasm with COPD exacerbation possibly from aspiration during sedation. Received Solu-Medrol 125 mg IV stat followed by 80 mg IV every 12 hourly. DuoNeb nebulizer treatments every 4 hourly and every 2 hourly when necessary. Off BiPAP, on nasal cannula currently. Chest x-ray does not show any pneumothorax shows new PermCath in place, ICD in place and chronic pleural effusions bilaterally. CV: NSTEMI h/o Atrial fibrillation h/o Vtach s/p pacemaker ICD h/o CAD and prior OR Systolic heart failure On ASA 81mg daily, by mouth Lopressor. Eliquis and Plavix held for PermCath placement, resume tomorrow. Continue Lasix 60 mg by mouth twice a day. Patient to be dialyzed for fluid removal tomorrow. Lasix 80 mg IV stat Hydralazine when necessary to keep systolic blood pressure less than 160 mmHg. Check 12-lead EKG, cardiac enzymes. Dr. bruner cardiology 11/19 F/u 2DEcho-NoWMA EF 45-50%. Dilated LA GI: Elevated LFT's ( trending down) Protonix 40 mg daily Resume by mouth diet US abdomen: Dilated common bile duct measuring 11 mm. Thick-walled stone- containing gallbladder with minimal pericholecystic fluid. Mild hepatomegaly. Small right pleural effusion. FEN/RENAL: Acute kidney injury overlying CKD stage III Monitor renal function, I/O's, avoid nephrotoxins Renal-Dr. Valdes- continue hemodialysis next session scheduled for 12/11. Remains on diuretics. Vas-Cath switch to PermCath on 12/10 by interventional radiology ID: LLL community acquired vs aspiration Pneumonia Empirically treated with meropenem (history of PCN and cephalosporin allergy) and vancomycin by ID. has been off antibiotics for a few weeks now. Per my discussion with family medicine service, patient apparently does not have HIV. Her HIV screen was negative during this admission. HEME: Monitor CBC. 2 units PRBCs ordered to be transfused today. Appears to have iron deficiency, will order iron sucrose 200 mg IV daily 3 days. Further recommendations per family medicine service. Needs Epogen with dialysis-defer to renal ENDO: Diabetes mellitus DKA - resolved On SSI( medium scale) PROPH: Protonix 40 mg IV daily. Resume Eliquis for anticoagulation on 12/11 ACCESS: PIV providing adequate access at this time. Patient being followed by family medicine team. Transfer out of ICU following dialysis and blood transfusions. Critical care signing off, please reconsult if needed. Taqueria Robert MD Dec 11, 2016 08:05
[2016-12-11] MEDS: PANTOPRAZOLE SODIUM 40 MG VIAL IV SCH (09:00)
[2016-12-11] MEDS: COLLAGENASE OINT 30 GM TUBE TOPICAL SCH (09:00)
[2016-12-11] MEDS: VITAMIN B CMPLX/VITC/FOLIC AC CAP PO SCH (09:00)
[2016-12-11] MEDS: NYSTATIN 100,000 UNIT/GM CREAM 15 GM TOPICAL SCH ×2 (09:00→20:37)
[2016-12-11] MEDS: CHOLECALCIFEROL (VIT D3) 1000 UNIT TAB PO SCH (09:00)
[2016-12-11] MEDS: FUROSEMIDE 20 MG TAB PO SCH ×2 (09:00→20:52)
[2016-12-11] MEDS: MUPIROCIN 2% OINT 22 GM TUBE TOPICAL SCH ×2 (09:00→20:37)
[2016-12-11] MEDS: METOPROLOL TARTRATE 25 MG TAB PO SCH ×3 (09:00→21:00)
[2016-12-11] MEDS: IRON SUCROSE INJ 200 MG in SODIUM CHLORIDE 0.9% INJ 100 ML IV SCH (11:00)
--- NOTE | 2016-12-11 11:00 | RADRPT ---
EXAM DATE/TIME: 12/10/2016 14:02 [place] COMPARISON: No previous studies available for comparison. INDICATIONS : Patient with renal failure in need of tunnelled dialysis catheter placement. MEDICAL HISTORY : COPD, A-Fib, HTN, HLD, Systolic heart failure, PAD, CKD Stage III, Diabetes, HIV SURGICAL HISTORY : Dialysis catheter, CABGX3, Pacemaker, Hysterectomy ENCOUNTER: Subsequent ACUITY: 3 weeks PAIN SCORE: 0/10 FLUORO TIME: 1 minutes IMAGE SERIES: 1 SEDATION TIME: 30 minutes SEDATION: 1.) 1.5 mg midazolam (Versed) IV 2.) 75 mcg fentanyl (Sublimaze) IV Prophylactic antibiotics were administered with appropriate pre-procedure timing. Vancomycin within 2 hours of procedure, Ancef (or alternative) within 1 hour of procedure. DEVICE: 1. 15 Somali dual lumen 23 cm Butterfield II Plus catheter PROCEDURE : 1. Fluoroscopically-guided venipuncture. 2. PermaCath placement. 3. Conscious sedation with continuous EKG and oximetry monitoring. The risks, benefits and alternatives to the procedure were explained and verbal and written consent w as obtained. The site was prepped in sterile fashion. Full sterile technique was used, including ca p, mask, sterile gloves and gown and a large sterile sheet. Hand hygiene and 2% chlorhexidine Betadi ne was utilized per protocol for cutaneous antisepsis with appropriate dry time for site. The skin a nd subcutaneous tissues were infiltrated with local anesthetic solution. Utilizing fluoroscopic guidance a dermatotomy was created over the prescribed vein. A micropuncture set was used to access the targeted vein and serial dilatation was performed to accept the prescribed length Butterfield catheter. A subcutaneous tunnel was created in a retrograde fashion the Butterfield cathet er was pulled through the tunnel. The catheter was flushed and assembled and locked with heparin. T he catheter was sutured in place. Conscious sedation was performed with the prescribed dosages and duration as above in the presence of an independent trained radiology nurse to assist in the monitoring of the patient. EKG and oximetry remained stable throughout the procedure. The patient tolerated the procedure well and there were n o complications. The patient was sent to post anesthesia recovery in stable condition. Approximately one hour after returning to work view, patient began to have significant stridor. This was initially treated with albuterol nebulizer with little improvement. Patient has a long list of al lergies and it was presumed that this may be an allergic reaction to a new agent. Patient is allergic cortical steroids. Therefore, the patient was treated with a total of 0.3 mg of IV epinephrine with little improvement. Racemic epinephrine nebulizer was also attempted with little improvement. With th e patient's O2 saturation in the low to mid 80s, a a code was called to assist with potential intubat ion. Dr. Mclean from the ICU responded to occurred and transported patient to the ICU for further obse rvation. CONCLUSION: 1. Uncomplicated PermaCath placement as above. 2. Patient did appear to experience a significant allergic reaction with stridor to one of the agents administered during the procedure. Patient will be observed in ICU Chad Nelson MD on December 11, 2016 at 10:53 Board Certified Radiologist. This report was verified electronically.
--- NOTE | 2016-12-11 12:31 | PD.CAR.PN ---
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 Nonetheless patient is elevation pallor dependent rubor varies severe vascular compromise in in absence of any surgery will likely proceed to lose her extremities if her lifespan allows for this Therefore every effort should be made to reconstruct patient's vasculature before a untoward event happens. On the other hand patient is a poor surgical candidate with coronary artery disease and we have to weigh of the risks and benefits of any procedure. Right now there is no rodriguez to do anything especially considering the fact that the patient is first time on dialysis I would let this ride out for a while and see how patient does and possibly if she is improved enough that schedule her for left external iliac angioplasty and stent with a femoropopliteal bypass 12/11/16 Patient with severe peripheral vascular disease and multiple comorbidities. Patient was transferred to ICU as an emergency after sustaining a period of shortness of breath and possible allergic reaction Patient has been stable here in the ICU Very anemic despite blood transfusion which is currently being worked up All things equal and patient is more stable in a few weeks she may be a candidate for endovascular stenting and femoropopliteal bypass on the left leg however right now patient is other pressing problems in the face of ongoing insidious blood loss she is not a candidate for heparinization to start with At this point vascular issues are on the back burner and more pressing morbidities are at the forefront Nothing to add to care The exam, history, and the medical decision-making described in the above note were completed with the assistance of the mid-level provider. I reviewed and agree with the findings presented. I attest that I had a [id number] encounter with the patient on the same day, and personally performed and documented my assessment and findings in the medical record. Critical care time 35 minutes. Objective: Vital Signs Date Time Temp Pulse Resp B/P Pulse Ox O2 Delivery O2 Flow Rate FiO2 12/11/16 10:00 53 12/11/16 09:23 97 Nasal Cannula 4.00 12/11/16 08:00 76 12/11/16 08:00 98.7 76 25 137/65 93 12/11/16 06:00 71 12/11/16 04:00 62 12/11/16 04:00 97.2 62 27 91/59 97 12/11/16 02:00 64 12/11/16 00:40 94 5.00 12/11/16 00:00 97.8 60 13 118/57 95 12/11/16 00:00 60 12/10/16 22:00 64 12/10/16 21:12 97 40 12/10/16 20:00 64 12/10/16 20:00 97.8 64 21 73/43 96 12/10/16 18:00 76 21 128/59 97 12/10/16 17:46 94 40 12/10/16 17:27 91 15.00 12/10/16 16:12 97.0 149 22 156/90 89 12/10/16 16:10 91 15.00 12/10/16 15:35 55 20 118/55 92 12/10/16 15:05 98.0 54 20 115/55 92 Labs: Laboratory Tests Test 12/11/16 12/11/16 03:49 06:25 White Blood Count 5.4 TH/MM3 (4.0-11.0) Red Blood Count 2.37 MIL/MM3 (4.00-5.30) Hemoglobin 6.8 GM/DL (11.6-15.3) Hematocrit 20.0 % (35.0-46.0) Mean Corpuscular Volume 84.5 FL (80.0-100.0) Mean Corpuscular Hemoglobin 28.7 PG (27.0-34.0) Mean Corpuscular Hemoglobin 33.9 % Concent (32.0-36.0) Red Cell Distribution Width 16.1 % (11.6-17.2) Platelet Count 115 TH/MM3 (150-450) Mean Platelet Volume 9.9 FL (7.0-11.0) Blood Type A POSITIVE Antibody Screen NEGATIVE Crossmatch Leukocyte-Reduced Red Blood Cells Blood Bank Comment Result Diagram: 12/11/16 0349 12/10/16 2251 Margarito Sanchez MD Dec 11, 2016 12:31
--- NOTE | 2016-12-11 13:07 | HHI.FPPN ---
Subjective Remarks Unfortunately, Ms Palomo had an event of respiratory distress yesterday when having her line placed. She developed stridor and was treated with oxygen, steroids, epinephrine and breathing treatments. It was unknown if she may have had an allergic rxn but she has no rash and was not hypotensive initially but only after she has lasix. She may have aspirated as she is much better today. She states she was very frightened during that episode but is breathing back to normal today. Her glucoses are elevated this am up to 500s. She had 9 units of insulin and the repeat was still high at 400s. She takes 80-90 units of insulin per day at home according to Ms Palomo. Per her outpatient chart, she does have a high requirement for insulin even at baseline but more now with steroids. She was friendly and talkative today. She discussed with me her severe PAD and that she wanted to have a procedure soon as she cannot walk with the pain she has. Objective Vitals Vital Signs Date Time Temp Pulse Resp B/P Pulse Ox O2 Delivery O2 Flow Rate FiO2 12/11/16 10:00 53 12/11/16 09:23 97 Nasal Cannula 4.00 12/11/16 08:00 76 12/11/16 08:00 98.7 76 25 137/65 93 12/11/16 06:00 71 12/11/16 04:00 62 12/11/16 04:00 97.2 62 27 91/59 97 12/11/16 02:00 64 12/11/16 00:40 94 5.00 12/11/16 00:00 97.8 60 13 118/57 95 12/11/16 00:00 60 12/10/16 22:00 64 12/10/16 21:12 97 40 12/10/16 20:00 64 12/10/16 20:00 97.8 64 21 73/43 96 12/10/16 18:00 76 21 128/59 97 12/10/16 17:46 94 40 12/10/16 17:27 91 15.00 12/10/16 16:12 97.0 149 22 156/90 89 12/10/16 16:10 91 15.00 12/10/16 15:35 55 20 118/55 92 12/10/16 15:05 98.0 54 20 115/55 92 I/O 12/10/16 12/10/16 12/10/16 12/11/16 12/11/16 12/11/16 07:00 15:00 23:00 07:00 15:00 23:00 Intake Total 0 ml 0 ml 22 ml 10 ml Output Total 100 ml 1175 ml 20 ml Balance 0 ml -100 ml -1153 ml -10 ml Intake Oral 0 ml IV Total 0 ml 22 ml 10 ml Output Urine Total 100 ml 1175 ml 20 ml # Voids 1 # Bowel Movements 0 1 Result Diagram: 12/11/16 0349 12/10/16 2251 Objective Remarks GENERAL: Sitting up in bed, no distress SKIN: Mild pallor. No rashes. Large ecchymosis covering left forearm and distal 1/3 of left upper arm on posteromedial side. Ecchymosis of right mid-arm, left hip. These are resolving from prior exams. Exam from previous days: Stage 2 sacral decubitus ulcer right buttock near midline. Stage 1 pressure ulcer right upper back, b/l heels. Ulcers seen on prior exams I did not see them today. CARDIOVASCULAR: NRRR. Normal S1/S2. No MRG RESPIRATORY: CTAB, good air entry. No crackles noted on exam today. MUSCULOSKELETAL: Small superficial abrasion on dorsal aspect of middle finger. Slightly erythematous but evidence of cellulitis or abscess. Non-pitting edema to b/l ankles. NEUROLOGICAL: Awake and alert. Well-oriented. Vascular Central Line Catheter: Yes Assessment to: Continue A/P Assessment and Plan 76 year old female with PMH of DM, AFib, COPD, CKD initially presented with DKA , rhabdomyolysis, and sepsis, now with resolved DKA, but now with acute renal failure and requiring hemodialysis. She had respiratory distress yesterday but is improved today. Discharge Planning Will need rehabilitation/SNF placement on discharge. Pending PermCath placement and setting up outpatient dialysis, likely today. Problem List: (1) Chronic obstructive lung disease Status: Chronic Plan: Lungs now clear to auscultation. Initial sxs could have been due to COPD exacerbation versus cardiac wheezing from CHF/pulmonary fluid overload. Lasix also seems to help. Her respiratory distress yesterday has resolved. She may have aspirated with sedation but is better now - Albuterol neb Q2hrs prn - Prednisone and azithromycin completed on 11/29 - Continue incentive spirometer, EZ Pap (2) DM (diabetes mellitus) Status: Chronic Plan: Her glucoses are very elevated today with steroids. She is on sliding scale but takes 80-90 units per day at home per pt. (3) Acute on chronic kidney failure Status: Acute Plan: Likely multifactorial etiology, including rhabdomyolysis, ATN, cardiogenic. Creatinine reached a peak of 6.19 with BUN of 82, with decreasing urinary output and increasing potassium level, and decision was made to initiate hemodialysis. - Nephrology on board, appreciate assistance - Hemodialysis Trudy Bowers, Sat per nephrology recs, will receive outpatient dialysis. - PermCath placement done - Holding Plavix & Eliquis per cardiology input - Resume Plavix & Eliquis DANIS after PermCath placement - Monitor I&O's, urine output, electrolytes - Avoid nephrotoxic agents - Renally dose medications - Monitor electrolytes - Monitor kidney function/urine output (4) CHF, chronic Status: Chronic Plan: History of CHF - Continue Lopressor from home - Lasix PRN for fluid overload, getting dialysis - No steve inhibitor due to PRATIMA - Monitor fluid status, daily I's and O's and weights - Limit salt and fluid intake (5) Peripheral arterial disease Status: Chronic Plan: History of PAD, had leg pain during this hospital stay. Has wounds, see physical exam for details. - Wound care nurse consulted, appreciate recommendations - Topical ointments to promote healing - Air mattress - Rotate patient every 2 hours - Monitor clinically - CTA performed showing significant PAD, but risks of intervention outweigh benefits due to comorbid conditions at this time. -Dr Naima styles, appreciate his help (6) Atrial fibrillation Status: Chronic Plan: Rate controlled. Has ICD in place. - Cardiology on board, appreciate assistance - Continue Eliquis. Hold anticoagulation on 12/08 for PermCath placement on 12/10 , restart after procedure. - Plavix currently on hold, restart after procedure. (7) Coronary artery disease Status: Chronic Plan: Presented with elevated troponin and T-wave flattening and has a history of coronary artery disease. Had negative cardiac PET in 2014. No chest pain currently. - Cardiology on board, appreciate assistance - Continue medical management with BB and isosorbide dinitrate 10 mg PO daily to treat probable anginal symptoms - High dose statin - Plavix on hold for PermCath placement, replace afterwards - Stress test in the future as an outpatient. (8) Pressure ulcer Status: Acute Plan: See physical exam; several lesions noted on presentation to ICU. Do not appear acutely infected. - Wound care nurse consulted, appreciate recommendations - Topical ointments to promote healing - Air mattress - Rotate patient every 2 hours - Monitor clinically (9) Depressed Status: Acute Plan: Significant depression with recent loss of family member. Also with significant weight loss. Symptoms seem to be improving, but she is upset about her current health status. Appetite has improved and she is eating well. Now on Remeron, moods appear much improved from admission. Still trying to encourage good nutrition, giving Ensure as a supplement. - Remeron 15 mg HS for depression and appetite stimulation (10) FEN/PPX Status: Acute Plan: Fluids: With dialysis. Monitor fluid status routinely. Electrolytes: Monitor Nutrition: Renal diet, mechanical soft consistency per speech therapy DVT: Eliquis on hold for PermCath 12/10, restart afterwards Problem Qualifiers (1) Chronic obstructive lung disease: Qualified Code: J44.9 - Chronic obstructive pulmonary disease, unspecified COPD type (2) DM (diabetes mellitus): Qualified Code: E11.8 - Type 2 diabetes mellitus with complication, with long- term current use of insulin (3) CHF, chronic: Qualified Code: I50.9 - Chronic congestive heart failure, unspecified congestive heart failure type (4) Atrial fibrillation: Qualified Code: I48.2 - Chronic atrial fibrillation (5) Coronary artery disease: Qualified Code: I25.118 - Coronary artery disease of [place] artery of [place] heart with stable angina pectoris (6) Pressure ulcer: Qualified Code: L89.301 - Decubitus ulcer of buttock, stage 1, unspecified laterality (7) Depressed: Qualified Code: F32.9 - Reactive depression Apple Longo MD Dec 11, 2016 13:06
--- NOTE | 2016-12-11 15:00 | HHI.NPPN ---
Subjective History of Present Illness This patient is a 76-year-old female. Patient is a poor historian and history primarily obtained from the records. According to the records I reviewed the patient has a history of diabetes mellitus, hypertension as well as HIV. Infectious disease is currently in consultation as well as critical care. The patient was admitted to this institution on November 19, 2016 after being found "down" in her apartment. On presentation to the hospital she was noted to have a blood sugar of 957 with a creatinine of 2.68 and initially a sodium of 133 as well as a total CO2 on BMP of 10.6. Beta hydroxybutyrate was elevated. Patient has been treated for DKA and serum sodium level as expected has increased as a glucose level has dropped. Creatinine level is slightly improved today at 2.56. There is also evidence of rhabdomyolysis on presentation with significantly elevated CK level and a urinalysis positive for large amount of blood but minimal rbc. Of interest patient was taking Crestor as an outpatient. Interval History Patient feeling much better no wheezing today. Review of Systems General Constitutional: Fatigue Respiratory Lungs: SOB Gastrointestinal GI Remarks Nausea, anorexia Objective Data Data 12/10/16 12/11/16 19:00 07:00 Intake Total 0 ml 32 ml Output Total 100 ml 1195 ml Balance -100 ml -1163 ml Intake Oral 0 ml IV Total 32 ml Output Urine Total 100 ml 1195 ml # Bowel Movements 1 Vital Signs Date Time Temp Pulse Resp B/P Pulse Ox O2 Delivery O2 Flow Rate FiO2 12/11/16 12:00 98.2 51 31 137/103 97 12/11/16 12:00 51 12/11/16 10:00 53 12/11/16 09:23 97 Nasal Cannula 4.00 12/11/16 08:00 76 12/11/16 08:00 98.7 76 25 137/65 93 12/11/16 06:00 71 12/11/16 04:00 62 12/11/16 04:00 97.2 62 27 91/59 97 12/11/16 02:00 64 12/11/16 00:40 94 5.00 12/11/16 00:00 97.8 60 13 118/57 95 12/11/16 00:00 60 12/10/16 22:00 64 12/10/16 21:12 97 40 12/10/16 20:00 64 12/10/16 20:00 97.8 64 21 73/43 96 12/10/16 18:00 76 21 128/59 97 12/10/16 17:46 94 40 12/10/16 17:27 91 15.00 12/10/16 16:12 97.0 149 22 156/90 89 12/10/16 16:10 91 15.00 12/10/16 15:35 55 20 118/55 92 12/10/16 15:05 98.0 54 20 115/55 92 -: 12/11/16 0349 12/10/16 2251 Tubes & Lines: Perma-Cath Physical Exam General Appearance: No Acute Distress, Pale Appearance Remarks Appears to be mildly dyspneic. Pulmonary Resp Exam: Clear Bilaterally, Breath Sounds Equal Cardiology CV Exam: Regular, Normal Sinus Rhythm Gastrointestinal/Abdomen GI Exam: Soft, Non-Tender Integumentary Skin Exam: Clear, Warm Extremeties Extremities Exam: Trace Edema (left lower extremity), Pitting Edema, Dependent Edema Neurologic Neuro Exam: Alert, Awake, Speech Clear, Moving All Extremities Psychiatric Psych Exam: Appropriate Responses Assessment/Plan Discussed Condition With: Patient Problem List: (1) PRATIMA (acute kidney injury) Plan: Patient was seen during hemodialysis today. Hemodialysis PermCath is working well. Bronchospasm resolved clinically. Discharge planning per primary care physician at this point in time. Patient clear for discharge from renal point of view. Noted however patient has significant PAD. Plans as per vascular surgery. Patient has been approved for outpatient dialysis post discharge. Medications should be adjusted for the patient's estimated GFR if clinically indicated. Avoid agents with significant potential for nephrotoxicity possible including NSAIDs for analgesia, iodine contrast agents. Gadolinium is contraindicated if the GFR is below 30. (2) Rhabdomyolysis Plan: Resolved Most likely was secondary to compression injury while patient was on the floor. Patient was on a statin drug i.e. Crestor so uncertain to what degree this may have played a role also. (3) Vitamin D deficiency Plan: Vitamin D supplementation as ordered. (4) Congestive heart failure Plan: Continue by mouth furosemide and dialysis as indicated for fluid removal. (5) Vascular disease Plan: Awaiting consult with Dr. Mcnamara. (6) Anemia Plan: Continue Epogen with hemodialysis. Receiving blood. Problem Qualifiers (1) Rhabdomyolysis: Qualified Code: M62.82 - Non-traumatic rhabdomyolysis Mario Valdes MD Dec 11, 2016 15:00
[2016-12-11] MEDS: EPOETIN ALFA 10,000 UNITS/ML VIAL IV SCH (16:42)
[2016-12-11] MEDS: MIRTAZAPINE 15 MG TAB PO SCH (20:36)
[2016-12-11] MEDS: DONEPEZIL HCL 5 MG TAB PO SCH (20:36)
[2016-12-11] MEDS: ATORVASTATIN 80 MG TAB PO SCH (20:36)
[2016-12-11] MEDS: INSULIN DETEMIR 100 UNITS/ML VIAL SQ SCH (20:53)
[2016-12-11] MEDS ORDERED: INSULIN DETEMIR 100 UNITS/ML VIAL SQ SCH (21:00)
[2016-12-12] VITALS (14 sets, daily range): BP systolic 111–161; BP diastolic 55–83; PULSE 62–92; RESP 16–24; TEMP 96–98.6; O2SAT 92–100
[2016-12-12] MEDS: RESP: ALBUTEROL 2.5 MG/IPRATROPIUM 0.5 MG NEB (SCH) NEB ×5 (03:15→20:52)
[2016-12-12] MEDS: CHLORHEXIDINE GLUCONATE 2 % 1 PACK (2 CLOTHS) TOP SCH ×2 (04:00→21:41)
[2016-12-12 04:37] LABS: HEMATOCRIT 27.6 % (35.0-46.0); MEAN CORPUSCULAR HEMOGLOBIN 28.3 PG (27.0-34.0); MEAN CORPUSCULAR HGB CONC 33.3 % (32.0-36.0); PLATELET COUNT 122 TH/MM3 (150-450); RED BLOOD COUNT 3.25 MIL/MM3 (4.00-5.30); RED CELL DISTRIBUTION WIDTH 16.5 % (11.6-17.2); REVIEW FLAG FINAL; WHITE BLOOD COUNT 7.2 TH/MM3 (4.0-11.0)
[2016-12-12 05:03] LABS: BICARBONATE 25.9 MEQ/L (21.0-32.0)
[2016-12-12] MEDS: ISOSORBIDE MONONITRATE 30 MG TAB PO SCH (06:16)
[2016-12-12] MEDS: INSULIN ASPART SUPPLEMENTAL SCALE SQ SCH ×5 (06:16→20:45)
[2016-12-12] MEDS: METOPROLOL TARTRATE 25 MG TAB PO SCH ×2 (09:00→19:50)
[2016-12-12] MEDS: COLLAGENASE OINT 30 GM TUBE TOPICAL SCH ×2 (09:00→20:45)
[2016-12-12] MEDS: NYSTATIN 100,000 UNIT/GM CREAM 15 GM TOPICAL SCH ×2 (09:00→19:49)
[2016-12-12] MEDS: PANTOPRAZOLE SODIUM 40 MG VIAL IV SCH (09:00)
[2016-12-12] MEDS: VITAMIN B CMPLX/VITC/FOLIC AC CAP PO SCH (09:00)
[2016-12-12] MEDS: FUROSEMIDE 20 MG TAB PO SCH ×2 (09:00→19:54)
[2016-12-12] MEDS: INSULIN DETEMIR 100 UNITS/ML VIAL SQ SCH ×2 (09:00→19:49)
[2016-12-12] MEDS: IRON SUCROSE INJ 200 MG in SODIUM CHLORIDE 0.9% INJ 100 ML IV SCH (09:00)
[2016-12-12] MEDS: CHOLECALCIFEROL (VIT D3) 1000 UNIT TAB PO SCH (09:00)
[2016-12-12] MEDS: MUPIROCIN 2% OINT 22 GM TUBE TOPICAL SCH ×2 (09:00→19:49)
[2016-12-12] MEDS: predniSONE 20 MG TAB PO SCH (09:00)
--- NOTE | 2016-12-12 10:49 | PD.CAR.PN ---
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 Nonetheless patient is elevation pallor dependent rubor varies severe vascular compromise in in absence of any surgery will likely proceed to lose her extremities if her lifespan allows for this Therefore every effort should be made to reconstruct patient's vasculature before a untoward event happens. On the other hand patient is a poor surgical candidate with coronary artery disease and we have to weigh of the risks and benefits of any procedure. Right now there is no rodriguez to do anything especially considering the fact that the patient is first time on dialysis I would let this ride out for a while and see how patient does and possibly if she is improved enough that schedule her for left external iliac angioplasty and stent with a femoropopliteal bypass 12/11/16 Patient with severe peripheral vascular disease and multiple comorbidities. Patient was transferred to ICU as an emergency after sustaining a period of shortness of breath and possible allergic reaction Patient has been stable here in the ICU Very anemic despite blood transfusion which is currently being worked up All things equal and patient is more stable in a few weeks she may be a candidate for endovascular stenting and femoropopliteal bypass on the left leg however right now patient is other pressing problems in the face of ongoing insidious blood loss she is not a candidate for heparinization to start with At this point vascular issues are on the back burner and more pressing morbidities are at the forefront Nothing to add to care The exam, history, and the medical decision-making described in the above note were completed with the assistance of the mid-level provider. I reviewed and agree with the findings presented. I attest that I had a [id number] encounter with the patient on the same day, and personally performed and documented my assessment and findings in the medical record. Critical care time 35 minutes. 12/12/16 Patient is doing well yesterday morning was anemic with hemoglobin of 7 g/dL. Since then has received 2 units of PRBCs and hemoglobin is adequately corrected Patient does have a source of bleeding until this is resolved she cannot be heparinized and taken to surgery for any vascular procedure requiring full heparinization She does not have impending limb loss that would require urgent surgery so we can wait along but eventually patient will need some vascular construction on the left leg Objective: Vital Signs Date Time Temp Pulse Resp B/P Pulse Ox O2 Delivery O2 Flow Rate FiO2 12/12/16 09:37 96 Nasal Cannula 4.00 12/12/16 08:00 69 12/12/16 06:00 66 12/12/16 04:00 97.8 66 22 157/71 100 12/12/16 04:00 66 12/12/16 02:00 62 12/12/16 00:00 97.6 71 17 111/55 93 12/12/16 00:00 71 12/11/16 22:00 64 12/11/16 20:47 97 Nasal Cannula 4.00 12/11/16 20:00 61 12/11/16 20:00 97.8 61 18 135/63 98 12/11/16 18:00 68 12/11/16 16:00 62 12/11/16 16:00 98.3 62 18 140/65 94 12/11/16 14:00 54 12/11/16 12:00 98.2 51 31 137/103 97 12/11/16 12:00 51 Labs: Laboratory Tests Test 12/12/16 03:39 White Blood Count 7.2 TH/MM3 (4.0-11.0) Red Blood Count 3.25 MIL/MM3 (4.00-5.30) Hemoglobin 9.2 GM/DL (11.6-15.3) Hematocrit 27.6 % (35.0-46.0) Mean Corpuscular Volume 85.0 FL (80.0-100.0) Mean Corpuscular Hemoglobin 28.3 PG (27.0-34.0) Mean Corpuscular Hemoglobin 33.3 % Concent (32.0-36.0) Red Cell Distribution Width 16.5 % (11.6-17.2) Platelet Count 122 TH/MM3 (150-450) Mean Platelet Volume 9.9 FL (7.0-11.0) Sodium Level 131 MEQ/L (136-145) Potassium Level 4.0 MEQ/L (3.5-5.1) Chloride Level 93 MEQ/L (98-107) Carbon Dioxide Level 25.9 MEQ/L (21.0-32.0) Anion Gap 12 MEQ/L (5-15) Blood Urea Nitrogen 44 MG/DL (7-18) Creatinine 3.50 MG/DL (0.50-1.00) Estimat Glomerular Filtration 13 ML/MIN (>89) Rate Random Glucose 273 MG/DL (74-106) Calcium Level 7.8 MG/DL (8.5-10.1) Result Diagram: 12/12/16 0339 12/12/16 0339 Margarito Sanchez MD Dec 12, 2016 10:49
[2016-12-12] MEDS: FLUTICASONE PROPIONATE 220 MCG/ACT 12 GM INHALER INH SCH ×2 (11:00→19:48)
--- NOTE | 2016-12-12 11:09 | HHI.FPPN ---
Subjective Remarks No acute events overnight. Off BiPAP, feeling well today on NC. No SOB. No CP. No N/V. No abdominal pain. Still concerned about her legs but not nearly as painful as last several days. (Anthony Kimbrough MD R1) Objective Vitals Vital Signs Date Time Temp Pulse Resp B/P Pulse Ox O2 Delivery O2 Flow Rate FiO2 12/12/16 09:37 96 Nasal Cannula 4.00 12/12/16 08:00 69 12/12/16 06:00 66 12/12/16 04:00 97.8 66 22 157/71 100 12/12/16 04:00 66 12/12/16 02:00 62 12/12/16 00:00 97.6 71 17 111/55 93 12/12/16 00:00 71 12/11/16 22:00 64 12/11/16 20:47 97 Nasal Cannula 4.00 12/11/16 20:00 61 12/11/16 20:00 97.8 61 18 135/63 98 12/11/16 18:00 68 12/11/16 16:00 62 12/11/16 16:00 98.3 62 18 140/65 94 12/11/16 14:00 54 12/11/16 12:00 98.2 51 31 137/103 97 12/11/16 12:00 51 I/O 12/11/16 12/11/16 12/11/16 12/12/16 12/12/16 12/12/16 07:00 15:00 23:00 07:00 15:00 23:00 Intake Total 10 ml 460 ml 934 ml 240 ml Output Total 20 ml 25 ml 2100 ml 125 ml Balance -10 ml 435 ml -1166 ml 115 ml Intake Oral 360 ml 240 ml 240 ml IV Total 10 ml 100 ml 94 ml Packed Cells 600 ml Output Urine Total 20 ml 25 ml 100 ml 125 ml Hemodialysis 2000 ml # Bowel Movements 0 (Anthony Kimbrough MD R1) Result Diagram: 12/12/1633812/12/16338 Imaging Last Impressions Chest X-Ray 12/10/16 0000 Signed Impressions: Service Date/Time: Saturday, December 10, 2016 17:04 - CONCLUSION: Increasing bilateral lower lung consolidation and bilateral pleural effusions. Juan F Sharma MD Catheter Placement X-Ray 12/10/16 0000 Signed Impressions: Service Date/Time: Saturday, December 10, 2016 14:02 - CONCLUSION: 1. Uncomplicated PermaCath placement as above. 2. Patient did appear to experience a significant allergic reaction with stridor to one of the agents administered during the procedure. Patient will be observed in ICU Chad Nelson MD Carotid Artery Ultrasound 12/09/16 0000 Signed Impressions: Service Date/Time: Friday, December 09, 2016 21:44 - CONCLUSION: Normal examination with moderate atherosclerotic disease. Jimbo Butler MD Aorta w/Runoff CTA 12/08/16 0000 Signed Impressions: Service Date/Time: Thursday, December 08, 2016 10:49 - CONCLUSION: Advanced calcific atherosclerotic vascular disease with hemodynamically significant steno-occlusive involving the celiac artery, superior mesenteric artery, right renal arteries, external iliac arteries and superficial femoral arteries as described. Three-vessel infrapopliteal runoff with diffuse irregularity and eccentric calcified plaque Bilateral pleural effusions Cholelithiasis. Loyd Almeida MD Abdomen Ultrasound 11/21/16 0000 Signed Impressions: Service Date/Time: Monday, November 21, 2016 16:04 - CONCLUSION: 1. Dilated common bile duct measuring 11 mm. Correlation with alkaline phosphatase and bilirubin level is suggested to rule out biliary obstruction. 2. Thick-walled stone-containing gallbladder with minimal pericholecystic fluid. If there is clinical concern for acute cholecystitis a hepatobiliary scan may be helpful to confirm cystic duct obstruction. 3. Mild hepatomegaly. 4. Small right pleural effusion. 5. Trace ascites. 6. Poor visualization of the pancreas, abdominal aorta and inferior vena cava secondary to shadowing bowel gas. Joey Rosenthal MD Pelvis X-Ray 11/19/16 0000 Signed Impressions: Service Date/Time: Saturday, November 19, 2016 18:23 - CONCLUSION: 1. Moderate degenerative changes involving the hip joints bilaterally. 2. Degenerative changes involving the lower lumbar spine. 3. No acute fracture or dislocation. Joey Rosenthal MD Head CT 11/19/16 0000 Signed Impressions: Service Date/Time: Saturday, November 19, 2016 17:54 - CONCLUSION: No acute disease. Joey Rosenthal MD Cervical Spine CT 11/19/16 0000 Signed Impressions: Service Date/Time: Saturday, November 19, 2016 17:54 - CONCLUSION: 1. Extensive motion artifact particularly at C3 and C4 levels which limits interpretation of these levels. 2. Grade I retrolisthesis of C3 in relation to C4 and C2 as well as C4 in relation to C5. 3. Diffuse cervical spondylosis at C5-C6, C6- C7 and to a lesser extent at C4-C5 and C3-C4. 4. No acute fracture or prevertebral soft-tissue swelling. 5. Mild spinal stenosis at C5-C6. 6. Mild bilateral foraminal narrowing at C5-C6 and C6-C7 and to a lesser extent at C4- C5 and C3-C4. 7. Reversal of the normal cervical lordosis. Joey Rosenthal MD Objective Remarks GENERAL: Sitting up in bed, no distress SKIN: Mild pallor. No rashes. Large ecchymosis covering left forearm and distal 1/3 of left upper arm on posteromedial side. Ecchymosis of right mid-arm, left hip. These are resolving from prior exams. Exam from previous days: Stage 2 sacral decubitus ulcer right buttock near midline. Stage 1 pressure ulcer right upper back, b/l heels. Ulcers seen on prior exams I did not see them today. CARDIOVASCULAR: NRRR. Normal S1/S2. No MRG RESPIRATORY: CTAB, good air entry. No crackles noted on exam today. MUSCULOSKELETAL: Small superficial abrasion on dorsal aspect of middle finger. Slightly erythematous but evidence of cellulitis or abscess. Non-pitting edema to b/l ankles. NEUROLOGICAL: Awake and alert. Well-oriented. Procedures PermCath placement 12/10/16 (Anthony Kimbrough MD R1) A/P Assessment and Plan 76 year old female with PMH of DM, AFib, COPD, CKD initially presented with DKA , rhabdomyolysis, and sepsis, now with resolved DKA, but now with acute renal failure and requiring hemodialysis. She had respiratory distress yesterday but is improved today. Discharge Planning Will need rehabilitation/SNF placement on discharge. Pending PermCath placement and setting up outpatient dialysis, likely today. (Anthony Kimbrough MD R1) Attending Attestation Patient seen and examined. Case reviewed and discussed with the resident team. Agree with plan of care as discussed with me and documented in the resident note. (Apple Longo MD) Problem List: (1) Chronic obstructive lung disease Status: Chronic Plan: Lungs now clear to auscultation. Initial sxs could have been due to COPD exacerbation versus cardiac wheezing from CHF/pulmonary fluid overload. Lasix also seems to help. Her respiratory distress yesterday has resolved. She may have aspirated with sedation but is better now - DuoNebs Q4H scheduled, Q2H PRN - Added Flovent 220 BID - Continue PO prednisone to complete 5 total days as she seems improved - Continue incentive spirometer, EZ Pap (2) DM (diabetes mellitus) Status: Chronic Plan: Her glucoses are very elevated today with steroids. She is on sliding scale but takes 80-90 units per day at home per pt. - Levemir 10 units BID - F/u blood glucoses; adjust insulin regimen as indicated for discharge (3) Acute on chronic kidney failure Status: Acute Plan: Likely multifactorial etiology, including rhabdomyolysis, ATN, cardiogenic. Creatinine reached a peak of 6.19 with BUN of 82, with decreasing urinary output and increasing potassium level, and decision was made to initiate hemodialysis. - Nephrology on board, appreciate assistance - Hemodialysis Trudy Bowers, Sat per nephrology recs, will receive outpatient dialysis. - PermCath placement done - Mild bleeding from site of PermCath placement, otherwise no issue; can resume Plavix and Eliquis - Monitor I&O's, urine output, electrolytes - Avoid nephrotoxic agents - Renally dose medications - Monitor electrolytes - Monitor kidney function/urine output (4) CHF, chronic Status: Chronic Plan: History of CHF - Continue Lopressor from home - Lasix PRN for fluid overload, getting dialysis - No steve inhibitor due to PRATIMA - Monitor fluid status, daily I's and O's and weights - Limit salt and fluid intake (5) Peripheral arterial disease Status: Chronic Plan: History of PAD, had leg pain during this hospital stay. Has wounds, see physical exam for details. - Wound care nurse consulted, appreciate recommendations - Topical ointments to promote healing - Air mattress - Rotate patient every 2 hours - Monitor clinically - CTA performed showing significant PAD, but risks of intervention outweigh benefits due to comorbid conditions at this time. - Dr Mcnamara consulted, appreciate his help - Considering fem-pop bypass once medically stable and after ARF resolves ( hopefully after outpatient dialysis); no need for urgent surgery (6) Atrial fibrillation Status: Chronic Plan: Rate controlled. Has ICD in place. - Cardiology on board, appreciate assistance - Continue Eliquis, Plavix (7) Coronary artery disease Status: Chronic Plan: Presented with elevated troponin and T-wave flattening and has a history of coronary artery disease. Had negative cardiac PET in 2015. No chest pain currently. - Cardiology on board, appreciate assistance - Continue medical management with BB and isosorbide dinitrate 10 mg PO daily to treat probable anginal symptoms - High dose statin - Continue Plavix - Consider stress test in the future as an outpatient (8) Pressure ulcer Status: Acute Plan: See physical exam; several lesions noted on presentation to ICU. Do not appear acutely infected. - Wound care nurse consulted, appreciate recommendations - Topical ointments to promote healing - Air mattress - Rotate patient every 2 hours - Monitor clinically (9) Depressed Status: Resolved Plan: Significant depression with recent loss of family member. Also with significant weight loss. Symptoms seem to be improving, but she is upset about her current health status. Appetite has improved and she is eating well. Now on Remeron, moods appear much improved from admission. Still trying to encourage good nutrition, giving Ensure as a supplement. - Remeron 15 mg HS for depression and appetite stimulation (10) FEN/PPX Status: Acute Plan: Fluids: With dialysis. Monitor fluid status routinely. Electrolytes: Monitor Nutrition: Renal diet, mechanical soft consistency per speech therapy DVT: On Eliquis dw Dr. Longo (Anthony Kimbrough MD R1) Problem Qualifiers (1) Chronic obstructive lung disease: Qualified Code: J44.9 - Chronic obstructive pulmonary disease, unspecified COPD type (2) DM (diabetes mellitus): Qualified Code: E11.8 - Type 2 diabetes mellitus with complication, with long- term current use of insulin (3) CHF, chronic: Qualified Code: I50.9 - Chronic congestive heart failure, unspecified congestive heart failure type (4) Atrial fibrillation: Qualified Code: I48.2 - Chronic atrial fibrillation (5) Coronary artery disease: Qualified Code: I25.118 - Coronary artery disease of [place] artery of [place] heart with stable angina pectoris (6) Pressure ulcer: Qualified Code: L89.301 - Decubitus ulcer of buttock, stage 1, unspecified laterality (7) Depressed: Qualified Code: F32.9 - Reactive depression Anthony Kimbrough MD R1 Dec 12, 2016 11:09 Apple Longo MD Dec 14, 2016 15:52
--- NOTE | 2016-12-12 14:52 | HHI.NPPN ---
Subjective History of Present Illness This patient is a 76-year-old female. Patient is a poor historian and history primarily obtained from the records. According to the records I reviewed the patient has a history of diabetes mellitus, hypertension as well as HIV. Infectious disease is currently in consultation as well as critical care. The patient was admitted to this institution on November 19, 2016 after being found "down" in her apartment. On presentation to the hospital she was noted to have a blood sugar of 957 with a creatinine of 2.68 and initially a sodium of 133 as well as a total CO2 on BMP of 10.6. Beta hydroxybutyrate was elevated. Patient has been treated for DKA and serum sodium level as expected has increased as a glucose level has dropped. Creatinine level is slightly improved today at 2.56. There is also evidence of rhabdomyolysis on presentation with significantly elevated CK level and a urinalysis positive for large amount of blood but minimal rbc. Of interest patient was taking Crestor as an outpatient. Interval History Patient with no verbal complaints. Chronic dyspnea. Review of Systems General Constitutional: Fatigue Respiratory Lungs: SOB Gastrointestinal GI Remarks Nausea, anorexia Objective Data Data 12/11/16 12/12/16 19:00 07:00 Intake Total 460 ml 1174 ml Output Total 2025 ml 225 ml Balance -1565 ml 949 ml Intake Oral 360 ml 480 ml IV Total 100 ml 94 ml Packed Cells 600 ml Output Urine Total 25 ml 225 ml Hemodialysis 2000 ml # Bowel Movements 0 Vital Signs Date Time Temp Pulse Resp B/P Pulse Ox O2 Delivery O2 Flow Rate FiO2 12/12/16 14:02 77 12/12/16 12:00 97.8 66 22 157/71 100 12/12/16 12:00 69 12/12/16 10:00 77 12/12/16 09:37 96 Nasal Cannula 4.00 12/12/16 08:00 69 12/12/16 08:00 98.0 64 20 161/83 98 12/12/16 06:00 66 12/12/16 04:00 97.8 66 22 157/71 100 12/12/16 04:00 66 12/12/16 02:00 62 12/12/16 00:00 97.6 71 17 111/55 93 12/12/16 00:00 71 12/11/16 22:00 64 12/11/16 20:47 97 Nasal Cannula 4.00 12/11/16 20:00 61 12/11/16 20:00 97.8 61 18 135/63 98 12/11/16 18:00 68 12/11/16 16:00 62 12/11/16 16:00 98.3 62 18 140/65 94 -: 12/12/16 0339 12/12/16 0339 Tubes & Lines: Perma-Cath Physical Exam General Appearance: No Acute Distress Appearance Remarks Appears to be mildly dyspneic. Pulmonary Resp Exam: Clear Bilaterally, Breath Sounds Equal Cardiology CV Exam: Regular, Normal Sinus Rhythm Gastrointestinal/Abdomen GI Exam: Soft, Non-Tender Integumentary Skin Exam: Clear, Warm Extremeties Extremities Exam: Trace Edema (left lower extremity), Pitting Edema, Dependent Edema Neurologic Neuro Exam: Alert, Awake, Speech Clear, Moving All Extremities Psychiatric Psych Exam: Appropriate Responses Assessment/Plan Discussed Condition With: Patient Problem List: (1) PRATIMA (acute kidney injury) Plan: PermCath blood flow diminished at the end of dialysis yesterday. Repeat dialysis today. Hopefully the PermCath will have adequate blood flow today. If treatment goes well next dialysis tentatively next week Thursday. PermCath is in place and discharge okay from renal point of view. Discharge as per primary care and vascular surgery at this point in time. Patient has been approved for outpatient dialysis post discharge. Medications should be adjusted for the patient's estimated GFR if clinically indicated. Avoid agents with significant potential for nephrotoxicity possible including NSAIDs for analgesia, iodine contrast agents. Gadolinium is contraindicated if the GFR is below 30. (2) Rhabdomyolysis Plan: Resolved Most likely was secondary to compression injury while patient was on the floor. Patient was on a statin drug i.e. Crestor so uncertain to what degree this may have played a role also. (3) Vitamin D deficiency Plan: Vitamin D supplementation as ordered. (4) Congestive heart failure Plan: Continue by mouth furosemide and dialysis as indicated for fluid removal. (5) Vascular disease Plan: Awaiting consult with Dr. Mcnamara. (6) Anemia Plan: Continue Epogen with hemodialysis. Receiving blood. Problem Qualifiers (1) Rhabdomyolysis: Qualified Code: M62.82 - Non-traumatic rhabdomyolysis Mario Valdes MD Dec 12, 2016 14:52
--- NOTE | 2016-12-12 15:50 | HHI.NPPN ---
Subjective History of Present Illness This patient is a 76-year-old female. Patient is a poor historian and history primarily obtained from the records. According to the records I reviewed the patient has a history of diabetes mellitus, hypertension as well as HIV. Infectious disease is currently in consultation as well as critical care. The patient was admitted to this institution on November 19, 2016 after being found "down" in her apartment. On presentation to the hospital she was noted to have a blood sugar of 957 with a creatinine of 2.68 and initially a sodium of 133 as well as a total CO2 on BMP of 10.6. Beta hydroxybutyrate was elevated. Patient has been treated for DKA and serum sodium level as expected has increased as a glucose level has dropped. Creatinine level is slightly improved today at 2.56. There is also evidence of rhabdomyolysis on presentation with significantly elevated CK level and a urinalysis positive for large amount of blood but minimal rbc. Of interest patient was taking Crestor as an outpatient. Interval History this is a late entry note when the patient was seen on December 10, 2016. Patient developed respiratory stridor post PermCath placement and was transferred to the ICU. Complaining of shortness of breath. Review of Systems General Constitutional: Fatigue Respiratory Lungs: SOB, Wheeze Gastrointestinal GI Remarks Nausea, anorexia Objective Data Data 12/11/16 12/12/16 19:00 07:00 Intake Total 460 ml 1174 ml Output Total 2025 ml 225 ml Balance -1565 ml 949 ml Intake Oral 360 ml 480 ml IV Total 100 ml 94 ml Packed Cells 600 ml Output Urine Total 25 ml 225 ml Hemodialysis 2000 ml # Bowel Movements 0 Vital Signs Date Time Temp Pulse Resp B/P Pulse Ox O2 Delivery O2 Flow Rate FiO2 12/12/16 14:02 77 12/12/16 12:00 97.8 66 22 157/71 100 12/12/16 12:00 69 12/12/16 10:00 77 12/12/16 09:37 96 Nasal Cannula 4.00 12/12/16 08:00 69 12/12/16 08:00 98.0 64 20 161/83 98 12/12/16 06:00 66 12/12/16 04:00 97.8 66 22 157/71 100 12/12/16 04:00 66 12/12/16 02:00 62 12/12/16 00:00 97.6 71 17 111/55 93 12/12/16 00:00 71 12/11/16 22:00 64 12/11/16 20:47 97 Nasal Cannula 4.00 12/11/16 20:00 61 12/11/16 20:00 97.8 61 18 135/63 98 12/11/16 18:00 68 12/11/16 16:00 62 12/11/16 16:00 98.3 62 18 140/65 94 -: 12/12/16 0339 12/12/16 0339 Tubes & Lines: Perma-Cath Physical Exam General Appearance: No Acute Distress, Anxious Appearance Remarks Appears to be mildly dyspneic. Pulmonary Resp Exam: Retractions, Labored Resp Remarks Bilateral wheezing. Cardiology CV Exam: Regular, Normal Sinus Rhythm Gastrointestinal/Abdomen GI Exam: Soft, Non-Tender Integumentary Skin Exam: Clear, Warm Neurologic Neuro Exam: Alert, Awake, Speech Clear, Moving All Extremities Psychiatric Psych Exam: Appropriate Responses Assessment/Plan Discussed Condition With: Patient Problem List: (1) PRATIMA (acute kidney injury) Plan: As mentioned this is a late entry note when the patient was seen on December 10, 2016. Case discussed with critical care. Believe that the patient aspirated resulting in bronchospasm. No evidence of fluid overload at this time. Hemodialysis will be performed tomorrow as planned. When patient stable and PermCath functional therapy discharge planning from a renal point of view. Medications should be adjusted for the patient's estimated GFR if clinically indicated. Avoid agents with significant potential for nephrotoxicity possible including NSAIDs for analgesia, iodine contrast agents. Gadolinium is contraindicated if the GFR is below 30. (2) Rhabdomyolysis Plan: Resolved Most likely was secondary to compression injury while patient was on the floor. Patient was on a statin drug i.e. Crestor so uncertain to what degree this may have played a role also. (3) Vitamin D deficiency Plan: Vitamin D supplementation as ordered. (4) Congestive heart failure Plan: Continue by mouth furosemide and dialysis as indicated for fluid removal. (5) Vascular disease Plan: Awaiting consult with Dr. Mcnamara. (6) Anemia Plan: Continue Epogen with hemodialysis. Receiving blood. Problem Qualifiers (1) Rhabdomyolysis: Qualified Code: M62.82 - Non-traumatic rhabdomyolysis Mario Valdes MD Dec 12, 2016 15:49
--- NOTE | 2016-12-12 16:09 | HHI.HCPN ---
Reason for visit a. To assist with evaluation and management of symptoms including: weakness. b. To assist medical decision maker(s) with: better understanding of current medical conditions; weighing benefits/burdens of medical treatment options; making medical treatment decisions. Subjective/Interval History Patient seen and examined in ICU. Discussed with nurse. Patient is awake and alert, angry she is waiting for her lunch. He is hoping to eat prior to going to dialysis. She indicates that she is feeling much better, aside from her now bedbound status and generalized weakness. She denies pain. She reports some intermittent shortness of breath relieved with dialysis and breathing treatments. She denies anxiety, nausea vomiting or other symptoms during this visit. She remains capacitated to make medical decisions. She remembers Dr. Arreaga from prior visits. She verbalizes some frustration with her worsening health, stating she has had to give up her house and her car and come to the realization that she will need long-term care. She reminds me that should she not be able to speak with her regarding healthcare decisions that we should contact her friend Leti Quiroz. Patient is previously completed written advance directives including living will and designation of healthcare surrogate naming Leti Quiroz as HCS. Patient desires continued aggressive care. . Advance Directives Living Will: Copy in medical record (Living will completed 06/02/2011 designated Kelvin Dey as Health Care Surrogate.) Health Care Surrogate: Copy in medical record Advance Directive Specifics Health Care Surrogate(s): Patient designated, Leti Quiroz as primary healthcare surrogate. Living will and designation of healthcare surrogate paperwork on chart and scanned into EMR. . Significant change in goals: FULL CODE. Patient desires continued aggressive care at this time. . Objective Vital Signs Date Time Temp Pulse Resp B/P Pulse Ox O2 Delivery O2 Flow Rate FiO2 12/12/16 14:02 77 12/12/16 12:00 97.8 66 22 157/71 100 12/12/16 12:00 69 12/12/16 10:00 77 12/12/16 09:37 96 Nasal Cannula 4.00 12/12/16 08:00 69 12/12/16 08:00 98.0 64 20 161/83 98 12/12/16 06:00 66 12/12/16 04:00 97.8 66 22 157/71 100 12/12/16 04:00 66 12/12/16 02:00 62 12/12/16 00:00 97.6 71 17 111/55 93 12/12/16 00:00 71 12/11/16 22:00 64 12/11/16 20:47 97 Nasal Cannula 4.00 12/11/16 20:00 61 12/11/16 20:00 97.8 61 18 135/63 98 12/11/16 18:00 68 12/11/16 16:00 62 12/11/16 16:00 98.3 62 18 140/65 94 Intake & Output 12/12/16 12/12/16 07:00 19:00 Intake Total 1174 ml 500 ml Output Total 225 ml 240 ml Balance 949 ml 260 ml Intake Oral 480 ml 400 ml IV Total 94 ml 100 ml Packed Cells 600 ml Output Urine Total 225 ml 240 ml # Bowel Movements 0 Physical Exam CONSTITUTIONAL/GENERAL: This is an adequately nourished patient, in no acute distress. SKIN: No jaundice, rashes, or lesions. Ecchymoses on upper extremities. No wounds seen anteriorly. Skin temperature appropriate. Not diaphoretic. CARDIOVASCULAR: tachycardia without murmurs, gallops, or rubs. RESPIRATORY/CHEST: Symmetric, unlabored respirations. Breath sounds equal bilaterally. GASTROINTESTINAL: Abdomen soft, some tenderness on palpation, nondistended. No hepato-splenomegaly, or palpable masses. No guarding. Bowel sounds present. GENITOURINARY: Without palpable bladder distension. Mccord catheter in place. MUSCULOSKELETAL: Extremities without clubbing, cyanosis, or edema. No mottling or clubbing. NEUROLOGICAL: Awake and alert. Motor and sensory grossly within normal limits. Follows commands. Cognitively sharp, mild memory problems.. Moves all extremities. PSYCHIATRIC: agitated prior to lunch arriving, then happy and pleasant. . Diagnostic Tests Laboratory Laboratory Tests Test 12/10/16 12/10/16 12/10/16 12/10/16 05:12 11:20 17:20 17:50 White Blood Count 4.9 TH/MM3 2.4 TH/MM3 (4.0-11.0) (4.0-11.0) Red Blood Count 2.55 MIL/MM3 2.63 MIL/MM3 (4.00-5.30) (4.00-5.30) Hemoglobin 7.3 GM/DL 7.5 GM/DL (11.6-15.3) (11.6-15.3) Hematocrit 21.2 % 22.0 % (35.0-46.0) (35.0-46.0) Mean Corpuscular Volume 83.3 FL 83.7 FL (80.0-100.0) (80.0-100.0) Mean Corpuscular Hemoglobin 28.5 PG 28.5 PG (27.0-34.0) (27.0-34.0) Mean Corpuscular Hemoglobin 34.3 % 34.1 % Concent (32.0-36.0) (32.0-36.0) Red Cell Distribution Width 15.7 % 15.8 % (11.6-17.2) (11.6-17.2) Platelet Count 140 TH/MM3 156 TH/MM3 (150-450) (150-450) Mean Platelet Volume 9.0 FL 8.9 FL (7.0-11.0) (7.0-11.0) Sodium Level 132 MEQ/L (136-145) Potassium Level 4.1 MEQ/L (3.5-5.1) Chloride Level 94 MEQ/L (98-107) Carbon Dioxide Level 29.7 MEQ/L (21.0-32.0) Anion Gap 8 MEQ/L (5-15) Blood Urea Nitrogen 31 MG/DL (7-18) Creatinine 3.16 MG/DL (0.50-1.00) Estimat Glomerular Filtration 14 ML/MIN (>89) Rate Random Glucose 149 MG/DL (74-106) Calcium Level 8.5 MG/DL (8.5-10.1) Prothrombin Time 12.0 SEC (9.8-11.6) Prothromb Time International 1.1 RATIO Ratio Activated Partial 29.6 SEC Thromboplast Time (24.3-30.1) Blood Gas Puncture Site RT RADIAL Blood Gas Patient Temperature 98.6 Blood Gas HCO3 23 mmol/L (22-26) Blood Gas Base Excess -0.9 mmol/L (-2-2) Blood Gas Oxygen Saturation 95 % (90-100) Arterial Blood pH 7.41 (7.380-7.420) Arterial Blood Partial 38 mmHg (38-42) Pressure CO2 Arterial Blood Partial 120 mmHg Pressure O2 (61-120) Arterial Blood Oxygen Content 10.1 Vol % (12.0-20.0) Arterial Blood 2.0 % (0-4) Carboxyhemoglobin Arterial Blood Methemoglobin 1.0 % (0-2) Blood Gas Hemoglobin 7.3 G/DL (12.0-16.0) Oxygen Delivery Device Non-Rebreathing Mask Blood Gas Liter Flow 15 L/M Blood Gas Inspired Oxygen 100 % Neutrophils (%) (Auto) 94.3 % (16.0-70.0) Lymphocytes (%) (Auto) 4.6 % (9.0-44.0) Monocytes (%) (Auto) 0.5 % (0.0-8.0) Eosinophils (%) (Auto) 0.4 % (0.0-4.0) Basophils (%) (Auto) 0.2 % (0.0-2.0) Neutrophils # (Auto) 2.3 TH/MM3 (1.8-7.7) Lymphocytes # (Auto) 0.1 TH/MM3 (1.0-4.8) Monocytes # (Auto) 0.0 TH/MM3 (0-0.9) Eosinophils # (Auto) 0.0 TH/MM3 (0-0.4) Basophils # (Auto) 0.0 TH/MM3 (0-0.2) CBC Comment DIFF FINAL Differential Comment Total Creatine Kinase 75 U/L (26-192) Troponin I 0.03 NG/ML (0.02-0.05) Test 12/10/16 12/11/16 12/11/16 12/12/16 22:51 03:49 06:25 03:39 Sodium Level 134 MEQ/L 131 MEQ/L (136-145) (136-145) Potassium Level 4.3 MEQ/L 4.0 MEQ/L (3.5-5.1) (3.5-5.1) Chloride Level 95 MEQ/L 93 MEQ/L (98-107) (98-107) Carbon Dioxide Level 22.3 MEQ/L 25.9 MEQ/L (21.0-32.0) (21.0-32.0) Anion Gap 17 MEQ/L (5-15) 12 MEQ/L (5-15) Blood Urea Nitrogen 37 MG/DL (7-18) 44 MG/DL (7-18) Creatinine 3.66 MG/DL 3.50 MG/DL (0.50-1.00) (0.50-1.00) Estimat Glomerular Filtration 12 ML/MIN (>89) 13 ML/MIN (>89) Rate Random Glucose 121 MG/DL 273 MG/DL (74-106) (74-106) Calcium Level 8.1 MG/DL 7.8 MG/DL (8.5-10.1) (8.5-10.1) Total Creatine Kinase 54 U/L (26-192) Troponin I 0.02 NG/ML (0.02-0.05) White Blood Count 5.4 TH/MM3 7.2 TH/MM3 (4.0-11.0) (4.0-11.0) Red Blood Count 2.37 MIL/MM3 3.25 MIL/MM3 (4.00-5.30) (4.00-5.30) Hemoglobin 6.8 GM/DL 9.2 GM/DL (11.6-15.3) (11.6-15.3) Hematocrit 20.0 % 27.6 % (35.0-46.0) (35.0-46.0) Mean Corpuscular Volume 84.5 FL 85.0 FL (80.0-100.0) (80.0-100.0) Mean Corpuscular Hemoglobin 28.7 PG 28.3 PG (27.0-34.0) (27.0-34.0) Mean Corpuscular Hemoglobin 33.9 % 33.3 % Concent (32.0-36.0) (32.0-36.0) Red Cell Distribution Width 16.1 % 16.5 % (11.6-17.2) (11.6-17.2) Platelet Count 115 TH/MM3 122 TH/MM3 (150-450) (150-450) Mean Platelet Volume 9.9 FL 9.9 FL (7.0-11.0) (7.0-11.0) Blood Type A POSITIVE Antibody Screen NEGATIVE Crossmatch Leukocyte-Reduced Red Blood Cells Blood Bank Comment Result Diagram: 12/12/16 0339 12/12/16 0339 Imaging Last Impressions Chest X-Ray 12/10/16 0000 Signed Impressions: Service Date/Time: Saturday, December 10, 2016 17:04 - CONCLUSION: Increasing bilateral lower lung consolidation and bilateral pleural effusions. Juan F Sharma MD Catheter Placement X-Ray 12/10/16 0000 Signed Impressions: Service Date/Time: Saturday, December 10, 2016 14:02 - CONCLUSION: 1. Uncomplicated PermaCath placement as above. 2. Patient did appear to experience a significant allergic reaction with stridor to one of the agents administered during the procedure. Patient will be observed in ICU Chad Nelson MD Carotid Artery Ultrasound 12/09/16 0000 Signed Impressions: Service Date/Time: Friday, December 09, 2016 21:44 - CONCLUSION: Normal examination with moderate atherosclerotic disease. Jimbo Butler MD Aorta w/Runoff CTA 12/08/16 0000 Signed Impressions: Service Date/Time: Thursday, December 08, 2016 10:49 - CONCLUSION: Advanced calcific atherosclerotic vascular disease with hemodynamically significant steno-occlusive involving the celiac artery, superior mesenteric artery, right renal arteries, external iliac arteries and superficial femoral arteries as described. Three-vessel infrapopliteal runoff with diffuse irregularity and eccentric calcified plaque Bilateral pleural effusions Cholelithiasis. Loyd Almeida MD Abdomen Ultrasound 11/21/16 0000 Signed Impressions: Service Date/Time: Monday, November 21, 2016 16:04 - CONCLUSION: 1. Dilated common bile duct measuring 11 mm. Correlation with alkaline phosphatase and bilirubin level is suggested to rule out biliary obstruction. 2. Thick-walled stone-containing gallbladder with minimal pericholecystic fluid. If there is clinical concern for acute cholecystitis a hepatobiliary scan may be helpful to confirm cystic duct obstruction. 3. Mild hepatomegaly. 4. Small right pleural effusion. 5. Trace ascites. 6. Poor visualization of the pancreas, abdominal aorta and inferior vena cava secondary to shadowing bowel gas. Joey Rosenthal MD Pelvis X-Ray 11/19/16 0000 Signed Impressions: Service Date/Time: Saturday, November 19, 2016 18:23 - CONCLUSION: 1. Moderate degenerative changes involving the hip joints bilaterally. 2. Degenerative changes involving the lower lumbar spine. 3. No acute fracture or dislocation. Joey Rosenthal MD Head CT 11/19/16 0000 Signed Impressions: Service Date/Time: Saturday, November 19, 2016 17:54 - CONCLUSION: No acute disease. Joey Rosenthal MD Cervical Spine CT 11/19/16 0000 Signed Impressions: Service Date/Time: Saturday, November 19, 2016 17:54 - CONCLUSION: 1. Extensive motion artifact particularly at C3 and C4 levels which limits interpretation of these levels. 2. Grade I retrolisthesis of C3 in relation to C4 and C2 as well as C4 in relation to C5. 3. Diffuse cervical spondylosis at C5-C6, C6- C7 and to a lesser extent at C4-C5 and C3-C4. 4. No acute fracture or prevertebral soft-tissue swelling. 5. Mild spinal stenosis at C5-C6. 6. Mild bilateral foraminal narrowing at C5-C6 and C6-C7 and to a lesser extent at C4- C5 and C3-C4. 7. Reversal of the normal cervical lordosis. Joey Rosenthal MD . Assessment and Plan Disease Oriented Problem List: (1) DM (diabetes mellitus screen) (2) Rhabdomyolysis (3) Acute on chronic kidney failure Comment: on dialysis (4) PRATIMA (acute kidney injury) (5) Chest pain Comment: reportedly taking many nitrates (6) Congestive heart failure (7) Atrial fibrillation (8) Dementia Comment: mild beginning stages. Able to still remember physicians name, why she is in hospital, her current situation. (9) CHF, chronic (10) Chronic obstructive lung disease Symptom Scale: (1) Dyspnea 0-10 Scale: Unable to quantify (2) Pain 0-10 Scale: 0 Comment: denies today. Pertinent Non-Medical Issues Psychosocial: . Supported by her friend Leti Quiroz. Does not want to estranged children involved in her care. Spiritual: unknown. Legal: patient is currently capacitated to make her own health care decisions. She has named her friend, Leti Quiroz is designated healthcare surrogate should choose capacity. Living Will and HCS forms on chart. Ethical issues impacting care: no known concerns at this time. . Important Contacts * Leti Quiroz, friend/[facility]; or [phone] * Miles Dey (son) [phone]. Unsure if this is the son that has . . Prognosis 76 year old with hx of cardiac disease (not card cath candidate currently) hx of arrhythmia, congestive heart failure. Pt came in with DKA, sepsis, elevated troponin, and renal failure. sugars are controlled, pt off heparin drip, sepsis resolved. Main challenge is renal failure- likely combination of rhambdo , ATN, and chronic renal insufficiency. Unsure if it is permanent. Would be appropriate for hospice if goals were in comfort measures only. Code Status: Full Code Plan * Patient currently has capacity to make healthcare decisions. Should she lose capacity she has designated her friend Leti Quiroz is designated healthcare surrogate. Living will and healthcare surrogate form on chart. She also stated in her living will she does not want her son Kelvin Soria or Gregorio Soria to be involved in her health care decision making. * FULL CODE. * Goals of Care: Kevin desires continued aggressive care at this time. She understands that she will need rehab/[id number] following hospitalization. She reports that she has given up her house and car. * SYMPTOMS: Pain: denies pain at this time. And meds available. She reports that when she has pain and uses the medication pain is relieved. Weakness: continued weakness given prolonged hospitalization, continue PT. * Palliative Care will continue to monitor as pt's condition continue to evolve. . Attestation To help prompt me to consider important information that might be impacting today's encounter and assessment, information from prior notes written by myself or my colleagues may have been "brought forward" into today's note. My signature on this note, however, is an attestation that I personally performed the exam, history, and/or decision-making noted today, and, unless otherwise indicated, the interactions with patient, family, and staff as well as the review of records all occurred today. I also attest that the listed assessment and stated plan reflect my best clinical judgment today based on the combination of historical information, prior notes, and today's exam/ interactions. When time spent is documented, it refers only to time spent today by the signer, or if indicated, combined time spent today by collaborating physician/nurse practitioner. . ELTON LOZANO Dec 12, 2016 16:08
[2016-12-12] MEDS: APIXABAN 2.5 MG TABLET PO SCH (19:47)
[2016-12-12] MEDS: ATORVASTATIN 80 MG TAB PO SCH (19:48)
[2016-12-12] MEDS: MIRTAZAPINE 15 MG TAB PO SCH (19:48)
[2016-12-12] MEDS: DONEPEZIL HCL 5 MG TAB PO SCH (19:48)
[2016-12-12] MEDS ORDERED: INSULIN ASPART 1,000 UNITS/10 ML VIAL SQ ONE (21:00)
[2016-12-13] MEDS: RESP: ALBUTEROL 2.5 MG/IPRATROPIUM 0.5 MG NEB (SCH) NEB ×5 (00:44→16:13)
[2016-12-13] MEDS: ACETAMINOPHEN 500 MG CPLT PO PRN (01:22)
[2016-12-13 03:27] VITALS: O2SAT 98
[2016-12-13 04:02] VITALS: BP 145/64; PULSE 68; RESP 16; TEMP 96.5; O2SAT 96
[2016-12-13 04:42] LABS: HEMATOCRIT 24.1 % (35.0-46.0); PLATELET COUNT 96 TH/MM3 (150-450)
[2016-12-13 05:01] LABS: REVIEW FLAG FINAL
[2016-12-13 05:22] LABS: BICARBONATE 28.2 MEQ/L (21.0-32.0); POTASSIUM 3.4 MEQ/L (3.5-5.1)
[2016-12-13] MEDS: ISOSORBIDE MONONITRATE 30 MG TAB PO SCH (05:59)
[2016-12-13] MEDS: INSULIN ASPART SUPPLEMENTAL SCALE SQ SCH ×3 (06:00→16:32)
[2016-12-13 08:00] VITALS: BP 142/65; PULSE 61; RESP 16; TEMP 96.4; O2SAT 97
[2016-12-13] MEDS: METOPROLOL TARTRATE 25 MG TAB PO SCH (09:00)
[2016-12-13] MEDS: VITAMIN B CMPLX/VITC/FOLIC AC CAP PO SCH (09:17)
[2016-12-13] MEDS: CHOLECALCIFEROL (VIT D3) 1000 UNIT TAB PO SCH (09:17)
[2016-12-13] MEDS: predniSONE 20 MG TAB PO SCH (09:17)
[2016-12-13] MEDS: APIXABAN 2.5 MG TABLET PO SCH (09:18)
[2016-12-13] MEDS: PANTOPRAZOLE SODIUM 40 MG VIAL IV SCH (09:18)
[2016-12-13] MEDS: FUROSEMIDE 20 MG TAB PO SCH (09:18)
[2016-12-13] MEDS: INSULIN DETEMIR 100 UNITS/ML VIAL SQ SCH (09:19)
[2016-12-13] MEDS: CLOPIDOGREL 75 MG TAB PO SCH (09:19)
[2016-12-13] MEDS: NYSTATIN 100,000 UNIT/GM CREAM 15 GM TOPICAL SCH (09:20)
[2016-12-13] MEDS: IRON SUCROSE INJ 200 MG in SODIUM CHLORIDE 0.9% INJ 100 ML IV SCH (09:20)
[2016-12-13] MEDS: MUPIROCIN 2% OINT 22 GM TUBE TOPICAL SCH (09:20)
[2016-12-13] MEDS: FLUTICASONE PROPIONATE 220 MCG/ACT 12 GM INHALER INH SCH (09:21)
[2016-12-13 10:21] VITALS: O2SAT 95
[2016-12-13] MEDS ORDERED: NOVOLOGP2 SQ (10:27)
--- NOTE | 2016-12-13 10:38 | HHI.FPPN ---
Subjective Remarks No acute events, sitting up in bed, comfortable, eating breakfast. No complaints this morning. No chest pain or shortness of breath, on 3L via nasal cannula. Reports swelling is improved. No abdominal pain, nausea, vomiting, or diarrhea. Leg pain is better but she has numbness on the left side at baseline. (Chato Culp MD R2) Objective Vitals Vital Signs Date Time Temp Pulse Resp B/P Pulse Ox O2 Delivery O2 Flow Rate FiO2 12/13/16 10:21 95 Nasal Cannula 3.00 12/13/16 08:00 96.4 61 16 142/65 97 12/13/16 04:02 96.5 68 16 145/64 96 12/13/16 03:27 98 Nasal Cannula 3.00 12/12/16 23:53 96.0 72 16 115/57 97 12/12/16 21:18 96.7 69 18 144/65 94 12/12/16 20:45 95 Nasal Cannula 3.00 12/12/16 20:00 92 12/12/16 20:00 98.6 76 24 137/65 92 12/12/16 18:14 69 12/12/16 14:02 77 12/12/16 12:00 97.8 66 22 157/71 100 12/12/16 12:00 69 I/O 12/12/16 12/12/16 12/12/16 12/13/16 12/13/16 12/13/16 07:00 15:00 23:00 07:00 15:00 23:00 Intake Total 240 ml 500 ml 240 ml 280 ml Output Total 125 ml 240 ml 3500 ml 300 ml Balance 115 ml 260 ml -3260 ml -20 ml Intake Oral 240 ml 400 ml 240 ml 280 ml IV Total 100 ml 0 ml 0 ml Output Urine Total 125 ml 240 ml 500 ml 300 ml Hemodialysis 3000 ml # Bowel Movements 0 1 (Chato Culp MD R2) Result Diagram: 12/13/1640412/13/16404 Objective Remarks GENERAL: Sitting up in bed, no distress SKIN: Mild pallor. No rashes. Large ecchymosis covering left forearm and distal 1/3 of left upper arm on posteromedial side. Ecchymosis of right mid-arm, left hip. These are resolving from prior exams. Exam from previous days: Stage 2 sacral decubitus ulcer right buttock near midline. Stage 1 pressure ulcer right upper back, b/l heels. Ulcers seen on prior exams I did not see them today. Permcath is in place, site is clear and dry. CARDIOVASCULAR: NRRR. Normal S1/S2. No MRG RESPIRATORY: CTAB, good air entry. No crackles noted on exam today. MUSCULOSKELETAL: Small superficial abrasion on dorsal aspect of middle finger. Slightly erythematous but evidence of cellulitis or abscess. Non-pitting edema to b/l ankles. NEUROLOGICAL: Awake and alert. Well-oriented. Procedures PermCath placement 12/10/16 (Chato Culp MD R2) A/P Assessment and Plan 76 year old female with PMH of DM, AFib, COPD, CKD initially presented with DKA , rhabdomyolysis, and sepsis, now with resolved DKA, but now with acute renal failure and requiring hemodialysis. Also with significant peripheral arterial disease. Discharge Planning Will need rehabilitation/SNF placement on discharge. Will require hemodialysis as an outpatient. Will need to follow up with vascular surgery regarding significant peripheral arterial disease. (Chato Culp MD R2) Attending Attestation Patient seen and examined. Case reviewed and discussed with the resident team. Agree with plan of care as discussed with me and documented in the resident note. (Apple Longo MD) Problem List: (1) Chronic obstructive lung disease Status: Chronic Plan: Lungs now clear to auscultation. Initial sxs could have been due to COPD exacerbation versus cardiac wheezing from CHF/pulmonary fluid overload. Lasix also seems to help. - DuoNebs Q4H scheduled, Q2H PRN - Added Flovent 220 BID - Continue PO prednisone to complete 5 total days - Continue incentive spirometer, EZ Pap (2) DM (diabetes mellitus) Status: Chronic Plan: Glucoses elevated due to steroids. She is on sliding scale medium dose, plus Levemir increased to 10 units bid. - Levemir 10 units BID - F/u blood glucoses (3) Acute on chronic kidney failure Status: Acute Plan: Likely multifactorial etiology, including rhabdomyolysis, ATN, cardiogenic. Creatinine reached a peak of 6.19 with BUN of 82, with decreasing urinary output and increasing potassium level, and decision was made to initiate hemodialysis. - Nephrology on board, appreciate assistance - Hemodialysis Tues, Trudy, Sat per nephrology recs, will receive outpatient dialysis. - PermCath placement done - Mild bleeding from site of PermCath placement, otherwise no issue; can resume Plavix and Eliquis - Monitor I&O's, urine output, electrolytes - Avoid nephrotoxic agents - Renally dose medications - Monitor electrolytes - Monitor kidney function/urine output - Will continue dialysis as an outpatient, permcath is in place. (4) CHF, chronic Status: Chronic Plan: History of CHF - Continue Lopressor from home - Lasix PRN for fluid overload, getting dialysis - No steve inhibitor due to PRATIMA - Monitor fluid status, daily I's and O's and weights - Limit salt and fluid intake (5) Peripheral arterial disease Status: Chronic Plan: History of PAD, had leg pain during this hospital stay. Has wounds, see physical exam for details. - Wound care nurse consulted, appreciate recommendations - Topical ointments to promote healing - Air mattress - Rotate patient every 2 hours - Monitor clinically - CTA performed showing significant PAD, but risks of intervention outweigh benefits due to comorbid conditions at this time. - Dr Mcnamara consulted, appreciate his help - Considering fem-pop bypass once medically stable and after ARF resolves ( hopefully after outpatient dialysis); no need for urgent surgery (6) Atrial fibrillation Status: Chronic Plan: Rate controlled. Has ICD in place. - Cardiology on board, appreciate assistance - Continue Eliquis, Plavix (7) Coronary artery disease Status: Chronic Plan: Presented with elevated troponin and T-wave flattening and has a history of coronary artery disease. Had negative cardiac PET in 2015. No chest pain currently. - Cardiology on board, appreciate assistance - Continue medical management with BB and isosorbide dinitrate 10 mg PO daily to treat probable anginal symptoms - High dose statin - Continue Plavix - Consider stress test in the future as an outpatient (8) Pressure ulcer Status: Acute Plan: See physical exam; several lesions noted on presentation to ICU. Do not appear acutely infected. - Wound care nurse consulted, appreciate recommendations - Topical ointments to promote healing - Air mattress - Rotate patient every 2 hours - Monitor clinically (9) Depressed Status: Resolved Plan: Significant depression with recent loss of family member. Also with significant weight loss. Symptoms seem to be improving, but she is upset about her current health status. Appetite has improved and she is eating well. Now on Remeron, moods appear much improved from admission. Still trying to encourage good nutrition, giving Ensure as a supplement. - Remeron 15 mg HS for depression and appetite stimulation (10) FEN/PPX Status: Acute Plan: Fluids: With dialysis. Monitor fluid status routinely. Electrolytes: Monitor Nutrition: Renal diet, mechanical soft consistency per speech therapy DVT: On Eliquis dw Dr. Longo (Chato Culp MD R2) Problem Qualifiers (1) Chronic obstructive lung disease: Qualified Code: J44.9 - Chronic obstructive pulmonary disease, unspecified COPD type (2) CHF, chronic: Qualified Code: I50.9 - Chronic congestive heart failure, unspecified congestive heart failure type (3) Atrial fibrillation: Qualified Code: I48.2 - Chronic atrial fibrillation (4) Coronary artery disease: Qualified Code: I25.118 - Coronary artery disease of [place] artery of [place] heart with stable angina pectoris (5) Pressure ulcer: Qualified Code: L89.301 - Decubitus ulcer of buttock, stage 1, unspecified laterality (6) Depressed: Qualified Code: F32.9 - Reactive depression Chato Culp MD R2 Dec 13, 2016 10:38 Apple Longo MD Dec 14, 2016 15:52
[2016-12-13 12:00] VITALS: BP 120/70; PULSE 71; RESP 16; TEMP 97.6; O2SAT 93
[2016-12-13] MEDS ORDERED: POTASSIUM CHLORIDE 20 MEQ CONTROLLED RELEASE TAB PO ONE (12:45)
[2016-12-13] MEDS ORDERED: LORA-373 PO (14:16)
[2016-12-13] MEDS ORDERED: LORazepam 0.5 MG TAB PO ONE (14:30)
[2016-12-13 16:00] VITALS: BP 139/59; PULSE 78; RESP 15; TEMP 96; O2SAT 90
--- NOTE | 2016-12-13 19:30 | HHI.DS ---
Discharge Summary Admission Date Nov 19, 2016 at 19:03 Discharge Date: Dec 13, 2016 Admitting Diagnosis sepsis, diabetic ketoacidosis (1) Chronic obstructive lung disease Diagnosis: Principal Plan: Lungs now clear to auscultation. Initial sxs could have been due to COPD exacerbation versus cardiac wheezing from CHF/pulmonary fluid overload. Lasix also seems to help. - DuoNebs Q4H scheduled, Q2H PRN - Added Flovent 220 BID - Continue PO prednisone to complete 5 total days - Continue incentive spirometer, EZ Pap (2) DM (diabetes mellitus) Diagnosis: Principal Plan: Glucoses elevated due to steroids. She is on sliding scale medium dose, plus Levemir increased to 10 units bid. - Levemir 10 units BID - F/u blood glucoses (3) Acute on chronic kidney failure Diagnosis: Principal Plan: Likely multifactorial etiology, including rhabdomyolysis, ATN, cardiogenic. Creatinine reached a peak of 6.19 with BUN of 82, with decreasing urinary output and increasing potassium level, and decision was made to initiate hemodialysis. - Nephrology on board, appreciate assistance - Hemodialysis Trudy Bowers, Sat per nephrology recs, will receive outpatient dialysis. - PermCath placement done - Mild bleeding from site of PermCath placement, otherwise no issue; can resume Plavix and Eliquis - Monitor I&O's, urine output, electrolytes - Avoid nephrotoxic agents - Renally dose medications - Monitor electrolytes - Monitor kidney function/urine output - Will continue dialysis as an outpatient, permcath is in place. (4) CHF, chronic Diagnosis: Principal Plan: History of CHF - Continue Lopressor from home - Lasix PRN for fluid overload, getting dialysis - No steve inhibitor due to PRATIMA - Monitor fluid status, daily I's and O's and weights - Limit salt and fluid intake (5) Peripheral arterial disease Diagnosis: Principal Plan: History of PAD, had leg pain during this hospital stay. Has wounds, see physical exam for details. - Wound care nurse consulted, appreciate recommendations - Topical ointments to promote healing - Air mattress - Rotate patient every 2 hours - Monitor clinically - CTA performed showing significant PAD, but risks of intervention outweigh benefits due to comorbid conditions at this time. - Dr Mcnamara consulted, appreciate his help - Considering fem-pop bypass once medically stable and after ARF resolves ( hopefully after outpatient dialysis); no need for urgent surgery (6) Atrial fibrillation Diagnosis: Principal Plan: Rate controlled. Has ICD in place. - Cardiology on board, appreciate assistance - Continue Eliquis, Plavix (7) Coronary artery disease Diagnosis: Principal Plan: Presented with elevated troponin and T-wave flattening and has a history of coronary artery disease. Had negative cardiac PET in 2015. No chest pain currently. - Cardiology on board, appreciate assistance - Continue medical management with BB and isosorbide dinitrate 10 mg PO daily to treat probable anginal symptoms - High dose statin - Continue Plavix - Consider stress test in the future as an outpatient (8) Pressure ulcer Diagnosis: Principal Plan: See physical exam; several lesions noted on presentation to ICU. Do not appear acutely infected. - Wound care nurse consulted, appreciate recommendations - Topical ointments to promote healing - Air mattress - Rotate patient every 2 hours - Monitor clinically (9) Depressed Diagnosis: Principal Plan: Significant depression with recent loss of family member. Also with significant weight loss. Symptoms seem to be improving, but she is upset about her current health status. Appetite has improved and she is eating well. Now on Remeron, moods appear much improved from admission. Still trying to encourage good nutrition, giving Ensure as a supplement. - Remeron 15 mg HS for depression and appetite stimulation (10) FEN/PPX Diagnosis: Principal Plan: Fluids: With dialysis. Monitor fluid status routinely. Electrolytes: Monitor Nutrition: Renal diet, mechanical soft consistency per speech therapy DVT: On Eliquis dw Dr. Longo Consult[facility] Nephrology, palliative care, vascular surgery, intensive care, cardiology Procedures PermCath placement 12/10/16 Brief History On admission 76-year-old female, [facility] resident, with past medical history of diabetes, hypertension, COPD, atrial fibrillation on chronic anticoagulation with Eliquis, coronary artery disease with prior 3 vessel CABG, ICD placement due to V tach, who is brought into [facility] emergency department after she was found down in her apartment with glucose reading "high" with AMS. At time of admission patient was not able to provide history. Her neighbor says she last saw her 24 hours prior. She is in DKA, acute rhabdomyolysis, PRATIMA overlying CKD stage III, febrile with WBC 15.7, and lactic acidemia. CT brain is negative. U/a with rare bacteria. CXR with LLL infiltrate. Received aztreonam , vancomycin, flagyl, 1 L NS bolus and was started on DKA protocol in the ED. Her friend stated she has been very depressed lately after the of her son 1-2 months ago. She has been taking nitroglycerin sublingual frequently. She has been admitted in the past in January 2016 for DKA when she decided to quit taking insulin. Interval Hx DKA stabilized, off insulin drip. Patient now awake and provided additional history. Prior to admission she was sitting at her dining room table and the next thing she remembers is waking up in the hospital (consistent with h/o being found down). She denies CP, SOB, fevers/chills, lightheadedness/dizziness leading up to event. PRATIMA on CKD stable, not improving much, per Nephrology this is due to either ATN or rhabdomyolysis (total CK elevated, patient found down). CBC/BMP: 12/13/16 0405 12/13/16 0405 Significant Findings Laboratory Tests Test 12/10/16 12/11/16 12/12/16 12/12/16 22:51 03:49 03:39 20:44 Sodium Level 134 MEQ/L 131 MEQ/L (136-145) (136-145) Chloride Level 95 MEQ/L 93 MEQ/L (98-107) (98-107) Anion Gap 17 MEQ/L (5-15) Blood Urea Nitrogen 37 MG/DL (7-18) 44 MG/DL (7-18) Creatinine 3.66 MG/DL 3.50 MG/DL (0.50-1.00) (0.50-1.00) Estimat Glomerular Filtration 12 ML/MIN (>89) 13 ML/MIN (>89) Rate Random Glucose 121 MG/DL 273 MG/DL 372 MG/DL (74-106) (74-106) (74-106) Calcium Level 8.1 MG/DL 7.8 MG/DL (8.5-10.1) (8.5-10.1) Red Blood Count 2.37 MIL/MM3 3.25 MIL/MM3 (4.00-5.30) (4.00-5.30) Hemoglobin 6.8 GM/DL 9.2 GM/DL (11.6-15.3) (11.6-15.3) Hematocrit 20.0 % 27.6 % (35.0-46.0) (35.0-46.0) Platelet Count 115 TH/MM3 122 TH/MM3 (150-450) (150-450) Test 12/13/16 04:05 Hemoglobin 8.2 GM/DL (11.6-15.3) Hematocrit 24.1 % (35.0-46.0) Platelet Count 96 TH/MM3 (150-450) Sodium Level 134 MEQ/L (136-145) Potassium Level 3.4 MEQ/L (3.5-5.1) Chloride Level 95 MEQ/L (98-107) Blood Urea Nitrogen 35 MG/DL (7-18) Creatinine 3.14 MG/DL (0.50-1.00) Estimat Glomerular Filtration 14 ML/MIN (>89) Rate Random Glucose 252 MG/DL (74-106) Calcium Level 7.5 MG/DL (8.5-10.1) PE at Discharge GENERAL: Sitting up in bed, no distress SKIN: Mild pallor. No rashes. Large ecchymosis covering left forearm and distal 1/3 of left upper arm on posteromedial side. Ecchymosis of right mid-arm, left hip. These are resolving from prior exams. Exam from previous days: Stage 2 sacral decubitus ulcer right buttock near midline. Stage 1 pressure ulcer right upper back, b/l heels. Ulcers seen on prior exams I did not see them today. Permcath is in place, site is clear and dry. CARDIOVASCULAR: NRRR. Normal S1/S2. No MRG RESPIRATORY: CTAB, good air entry. No crackles noted on exam today. MUSCULOSKELETAL: Small superficial abrasion on dorsal aspect of middle finger. Slightly erythematous but evidence of cellulitis or abscess. Non-pitting edema to b/l ankles. NEUROLOGICAL: Awake and alert. Well-oriented. Hospital Course 76 year old female, resident of an assisted living facility, and with a history of diabetes, hypertension, COPD, atrial fibrillation on Eliquis, coronary artery disease, PAD, ICD placement due to ventricular tachycardia. She presented to the ED after being found down in her apartment. She was found to have DKA and acute rhabdomyolysis. She was initially treated in the ICU and required mechanical ventilation for respiratory insufficiency. She was weaned off the vent, DKA was treated successfully, and rhabdomyolysis resolved. However , she developed significant kidney injury, likely multifactorial, including rhabdomyolysis, nephrotoxic medication, and poor cardiac output. Nephrology was consulted. Palliative was consulted and she requested full aggressive care. Hemodialysis was started for refractory kidney failure. She responded well to hemodialysis but continues to require it by the time of discharge. A permcatheter was placed. Vascular surgery was consulted for significant leg pains with a history of PAD. She has significant peripheral vascular disease and will follow with vascular surgery as an outpatient. Cardiology was consulted and she will need workup including stress tests as an outpatient. During PermCath placement she had allergic reaction versus mild aspiration and had significant respiratory distress. She was placed in the ICU overnight but recovered quickly on steroids and inhalers, and transferred back to the floor. She has several ulcers, see physical exam for details. She had some episodes of hypoglycemia and her insulin regimen was decreased to low dose sliding scale insulin and Levemir 10 units bid. She will follow with cardiology, nephrology, vascular surgery, wound care clinic, and her PCP as an outpatient. She will be transferred to a SNF. Pt Condition on Discharge: Stable Discharge Disposition: Discharge to SNF Discharge Instructions DIET: Follow Instructions for: Diabetic Diet Activities you can perform: Regular-No Restrictions Follow up Referrals: Cardiology - 2 Weeks with Carter Ashley MD Nephrology - 1 Week with Mario Valdes MD PCP Follow-up - 2 Weeks with Esperanza Talamantes MD Vascular Surgery - 1 Month with Margarito Sanchez MD Wound Care Clinic - 1 Week New Medications: Insulin Aspart Inj (Novolog Inj) 1,000 Unit/10 Ml Vial 1-9 UNITS SQ ACHS Max dose at bedtime:(10)units; sugars less than 70,(0)units; sugars 150-199,(1) unit; sugars 200-249,(3) units; sugars 250-299,(5) units; sugars 300-349,(7) units; sugars greater than 349,(9) units Blood Sugar Management #10 Ref 0 ML Lorazepam (Lorazepam) 0.5 Mg Tab 0.5 MG PO Q8H PRN ANXIETY #90 Ref 0 TAB Cholecalciferol (Vitamin D3) 1,000 Unit Tab 2000 UNITS PO DAILY #30 TAB Collagenase (Santyl) 250 Unit/Gm Oin 1 APPLIC TOPICAL DAILY Apply to: right buttock, medial coccyx CLEANSE THE WOUND SITE WITH NORMAL SALINE ONLY, APPLY SANTYL OINTMENT AT 2 MM THICKNESS DIRECTLY TO THE WOUND OR TO A STERILE GAUZE PAD (BORDERED OR ABD), THEN APPLY TO THE WOUND SITE. DO NOT USE FOAM DRESSING. DO NOT USE DRESSINGS CONTAINING SILVER OR IODINE. #1 TUBE Furosemide (Furosemide) 20 Mg Tab 60 MG PO BID #180 TAB Mirtazapine (Mirtazapine) 15 Mg Tab 15 MG PO HS #30 TAB Continued Medications: Apixaban (Eliquis) 2.5 Mg Tab 2.5 MG PO BID Blood Clot Prevention #60 Ref 11 TAB Atenolol (Atenolol) 25 Mg Tab 25 MG PO DAILY Blood Pressure Management #30 Ref 11 TAB Clopidogrel (Plavix) 75 Mg Tab 75 MG PO DAILY Blood Clot Prevention #90 Ref 3 TAB Donepezil (Aricept) 5 Mg Tab 5 MG PO HS Dementia #30 Ref 11 TAB Meclizine (Meclizine) 25 Mg Tab 2 TAB PO Q12HR VERTIGO #120 Ref 1 TAB Nitroglycerin SL (Nitrostat SL) 0.4 Mg Subl 0.4 MG SL DIRECTED ONE TABLET UNDER THE TONGUE NEEDED FOR CHEST PAIN, MAY REPEAT EVERY FIVE MINUTES FOR A TOTAL OF 3 DOSES OR CALL 911 IF NO RELIEF PRN CHEST PAIN #100 Ref 3 TAB.SL Nystatin Topical (Nystatin Topical) 100,000 unit/gm Oint 1 APPLIC TOPICAL Q12HR Infection #15 Ref 1 GM Rosuvastatin (Crestor) 40 Mg Tab 40 MG PO DAILY Cholesterol Management #30 Ref 11 TAB ([test strips]) One Touch Ultra Blue Test 4x/day #120 Ref 11 UNITS Discontinued Medications: Insulin Glargine Inj (Lantus Solostar Pen Inj) 300 Unit/3 Ml Pen 58 UNITS SQ HS Blood Sugar Management #1 Ref 11 PEN Insulin Lispro (Human) Inj (Humalog Kwikpen Pen Inj) 300 Unit/3 Ml Pen 1 UNITS SQ TIDAC 32U if glucose 125-325 42U if glucose >325 Blood Sugar Management #32 Ref 11 Chato Robertson MD R2 Dec 13, 2016 19:30
== END 2016-12-13 19:45 | DRG 637 ==
LOC: NEPA 16:36 → NEDA 19:03 → HIMN 11-20 02:25 → N07A 11-23 16:27 → N07B 11-30 13:32 → N03B 12-10 16:28 → N07A 12-12 21:10
PROVIDERS: ADMIT Family Medicine; ATTEND Family Medicine
PROC: 4B02XTZ Measurement of Cardiac Defibrillator, External Approach (ICD-10-PCS; 2016-11-20)
PROC: 05HM33Z Insertion of Infusion Device into Right Internal Jugular Vein, Percutaneous Approach (ICD-10-PCS; principal; 2016-11-25)
PROC: 5A1D60Z (ICD-10-PCS; 2016-11-25)
PROC: 30233N1 Transfusion of Nonautologous Red Blood Cells into Peripheral Vein, Percutaneous Approach (ICD-10-PCS; 2016-12-04)
PROC: 05HM33Z Insertion of Infusion Device into Right Internal Jugular Vein, Percutaneous Approach (ICD-10-PCS; 2016-12-10)
PROC: 5A09357 Assistance with Respiratory Ventilation, Less than 24 Consecutive Hours, Continuous Positive Airway Pressure (ICD-10-PCS; 2016-12-10)
DX: E13.10 Other specified diabetes mellitus with ketoacidosis without coma (principal); N17.0 Acute kidney failure with tubular necrosis; J96.00 Acute respiratory failure, unspecified whether with hypoxia or hypercapnia; J69.0 Pneumonitis due to inhalation of food and vomit; I47.2 Ventricular tachycardia; G92 Toxic encephalopathy; A41.9 Sepsis, unspecified organism; J18.9 Pneumonia, unspecified organism; E87.0 Hyperosmolality and hypernatremia; I50.22 Chronic systolic (congestive) heart failure; M62.82 Rhabdomyolysis; J44.1 Chronic obstructive pulmonary disease with (acute) exacerbation; I13.0 Hypertensive heart and chronic kidney disease with heart failure and stage 1 through stage 4 chronic kidney disease, or unspecified chronic kidney disease; I77.4 Celiac artery compression syndrome; L89.111 Pressure ulcer of right upper back, stage 1; L89.621 Pressure ulcer of left heel, stage 1; L89.611 Pressure ulcer of right heel, stage 1; L89.312 Pressure ulcer of right buttock, stage 2; E55.9 Vitamin D deficiency, unspecified; I48.2 Chronic atrial fibrillation; I25.119 Atherosclerotic heart disease of native coronary artery with unspecified angina pectoris; E86.0 Dehydration; E11.22 Type 2 diabetes mellitus with diabetic chronic kidney disease; I73.9 Peripheral vascular disease, unspecified; D64.9 Anemia, unspecified; E11.649 Type 2 diabetes mellitus with hypoglycemia without coma; E78.5 Hyperlipidemia, unspecified; E87.6 Hypokalemia; E83.39 Other disorders of phosphorus metabolism; B37.2 Candidiasis of skin and nail; D69.6 Thrombocytopenia, unspecified; S60.412A Abrasion of right middle finger, initial encounter; N18.3 Chronic kidney disease, stage 3 (moderate); F32.9 Major depressive disorder, single episode, unspecified; I25.2 Old myocardial infarction; J98.01 Acute bronchospasm; E61.1 Iron deficiency; E78.00 Pure hypercholesterolemia, unspecified; D63.1 Anemia in chronic kidney disease; R06.1 Stridor; Z79.4 Long term (current) use of insulin; Z95.1 Presence of aortocoronary bypass graft; Z79.02 Long term (current) use of antithrombotics/antiplatelets; Z95.810 Presence of automatic (implantable) cardiac defibrillator; Z87.891 Personal history of nicotine dependence; Z88.0 Allergy status to penicillin; Z88.1 Allergy status to other antibiotic agents; Z88.8 Allergy status to other drugs, medicaments and biological substances
CPT/HCPCS: 36430; 36556; 36558; 36600; 51702; 70450; 71010; 72125; 72170; 75635; 76700; 76937; 77001; 80048; 80053; 80069; 80074; 80202; 81001; 82010; 82306; 82550; 82552; 82728; 82805; 82947; 82948; 83036; 83540; 83550; 83605; 83735; 83880; 84100; 84155; 84443; 84484; 85014; 85018; 85025; 85027; 85049; 85610; 85730; 86022; 86703; 86850; 86900; 86901; 86920; 87040; 87086; 87205; 87641; 87804; 90935; 93005; 93306; 93880; 94002; 94150; 94640; 94664; 94667; 94668; 96365; 96374; 96375; 99152; 99153; C1750; C1752; C1769; C9113; J0171; J0610; J1580; J1644; J1756; J1815; J1817; J1940; J1956; J2150; J2185; J2250; J2405; J2930; J3010; J3370; J3480; J7030; J7040; J7042; J7050; J7070; J7512; J7613; P9016; P9045; P9047; Q4081; Q9967

== ENCOUNTER 2016-12-20 01:12 | Emergency (ER) | payer MEDICARE, MEDICAID ==
[~2016-12-20] VITALS: Ht 160 cm; Wt 50.0 kg
[~2016-12-20 01:12] MED LIST changes: +COLL30T TOPICAL; +FURO20TA PO; -HUMA100I3 SQ; -LANTINJ SQ; +LORA-373 PO; +MIRTA15 PO; +NOVOLOGP2 SQ; +VITA100018 PO
[2016-12-20 02:10] VITALS: BP 189/77; PULSE 79; RESP 18; TEMP 98.9; O2SAT 97
--- NOTE | 2016-12-20 03:07 | PD ---
HPI Chief Complaint: Abnormal Results Time Seen by Provider: 02:32 Travel History International Travel<30 days: No Contact w/Intl Traveler<30days: No Traveled to known affect area: No History of Present Illness HPI 76yo F with PMH of COPD, DM, CKD, CHF, PAD, Afib on eliquis, CAD s/p CABG, depression, AICD was sent from [facility] for evaluation of tuberculosis after obtaining a routine admission CXR last night. States it was abnormal and sent pt here. 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 Denies any fever, hemoptysis, night sweats, chest pain, sob, cough, n/v, abdominal pain, focal weakness or numbness. Pt was recently admitted and had prolong hospital course and then sent to rehab. PFSH Past Medical History Hx Anticoagulant Therapy: Yes Arthritis: Yes Asthma: No Atrial Fibrillation: Yes Autoimmune Disease: No Blood Disorders: No Anxiety: No Depression: No Heart Rhythm Problems: No Cancer: No Cardiovascular Problems: Yes (SD, pacemaker ) High Cholesterol: Yes Chemotherapy: No Chest Pain: No Congestive Heart Failure: Yes COPD: Yes Cerebrovascular Accident: No Diabetes: Yes (Insulin ) Diminished Hearing: No Endocrine: Yes Gastrointestinal Disorders: No GERD: No Glaucoma: No Genitourinary: No Headaches: Yes Hepatitis: No Hiatal Hernia: No Hypertension: Yes Immune Disorder: No Implanted Vascular Access Dvce: Yes Kidney Stones: No Musculoskeletal: Yes (PAD) Neurologic: No Psychiatric: No Reproductive: No Respiratory: Yes (COPD) Integumentary: No Immunizations Current: Yes Migraines: Yes Myocardial Infarction: Yes Radiation Therapy: No Renal Failure: No Seizures: No Sickle Cell Disease: No Sleep Apnea: No Thyroid Disease: No Ulcer: No Menopausal: Yes : 5 Para: 5 Ovarian Cysts: Yes Tubal Ligation: Yes Past Surgical History Abdominal Surgery: No AICD: Yes (MEDTRONIC IMPLANTED DEVICE) Appendectomy: No Arteriovenous Shunt: No Body Medical Devices: AICD/PACER Cardiac Surgery: Yes (TRIPLE BYPASS 1998) Cholecystectomy: No Coronary Artery Bypass Graft: Yes (X 4 IN 1998) Ear Surgery: No Endocrine Surgery: No Eye Surgery: Yes (BILATERAL CATERACTS) Genitourinary Surgery: No Gynecologic Surgery: Yes (HYSTERECTOMY) Hysterectomy: Yes Insulin Pump: No Joint Replacement: No Neurologic Surgery: No Oral Surgery: Yes (TEETH EXTRACTIONS) Pacemaker: Yes (MEDTRONIC, PACER/ DEFIB) Thoracic Surgery: No Other Surgery: Yes Social History Alcohol Use: No Tobacco Use: No (QUIT 1998) Substance Use: No Allergies-Medications (Allergen,Severity, Reaction): Coded Allergies: Cortisone (Verified Allergy, Severe, Rash, 11/12/16) Cortisone cream - rash on area that is apply Penicillin (Verified Allergy, Severe, Anaphylaxis, 11/12/16) Sulfa (Verified Allergy, Severe, Hives, 11/12/16) Hives on joints Cephalosporins (Verified Allergy, Unknown, 11/12/16) Codeine (Verified Allergy, Unknown, 11/12/16) Tizanidine (Verified Adverse Reaction, Severe, Dizziness, 11/12/16) Tetracyclines (Verified Adverse Reaction, Mild, 11/12/16) vomiting *MDRO Multi-Drug Resistant Organism (Verified Adverse Reaction, Unknown, ) MRSA (leg wound) 09/2012 and (finger wound) 09/2015 E-coli ESBL (urine) - 08/2013 MRSA PCR Screen POSITIVE - 11/20/2016 Uncoded Allergies: BETA LACTAMS (Allergy, Unknown, ., 09/26/15) UNK DARUNAVIR (Allergy, Unknown, ., 09/26/15) UNK OPIATES (Allergy, Unknown, ., 09/26/15) UNK AMPREVAVIR DERIVATIVES (Adverse Reaction, Unknown, ., 09/26/15) UNK Reported Meds & Prescriptions Reported Meds & Active Scripts Active Lorazepam 0.5 Mg Tab 0.5 Mg PO Q8H PRN Novolog Inj (Insulin Aspart) 1,000 Unit/10 Ml Vial 1-9 Units SQ ACHS Max dose at bedtime:(10)units; sugars less than 70,(0)units; sugars 150-199,(1) unit; sugars 200-249,(3) units; sugars 250-299,(5) units; sugars 300-349,(7) units; sugars greater than 349,(9) units Mirtazapine 15 Mg Tab 15 Mg PO HS Vitamin D3 (Cholecalciferol) 1,000 Unit Tab 2,000 Units PO DAILY Furosemide 20 Mg Tab 60 Mg PO BID Santyl (Collagenase) 250 Unit/Gm Oin 1 Applic TOPICAL DAILY Apply to: right buttock, medial coccyx CLEANSE THE WOUND SITE WITH NORMAL SALINE ONLY, APPLY SANTYL OINTMENT AT 2 MM THICKNESS DIRECTLY TO THE WOUND OR TO A STERILE GAUZE PAD (BORDERED OR ABD), THEN APPLY TO THE WOUND SITE. DO NOT USE FOAM DRESSING. DO NOT USE DRESSINGS CONTAINING SILVER OR IODINE. Aricept (Donepezil) 5 Mg Tab 5 Mg PO HS Meclizine (Meclizine HCl) 25 Mg Tab 2 Tab PO Q12HR Nystatin Topical 100,000 unit/gm Oint 1 Applic TOPICAL Q12HR [test strips] One Touch Ultra Blue Test 4x/day Reported Plavix (Clopidogrel Bisulfate) 75 Mg Tab 75 Mg PO DAILY Crestor (Rosuvastatin Calcium) 40 Mg Tab 40 Mg PO DAILY Eliquis (Apixaban) 2.5 Mg Tab 2.5 Mg PO BID Nitrostat SL (Nitroglycerin) 0.4 Mg Subl 0.4 Mg SL DIRECTED PRN ONE TABLET UNDER THE TONGUE NEEDED FOR CHEST PAIN, MAY REPEAT EVERY FIVE MINUTES FOR A TOTAL OF 3 DOSES OR CALL 911 IF NO RELIEF Atenolol 25 Mg Tab 25 Mg PO DAILY Review of Systems Except as stated in HPI: all other systems reviewed are Neg Physical Exam Narrative GENERAL: 76yo F not in distress. SKIN: Focused skin assessment warm/dry. HEAD: Atraumatic. Normocephalic. CARDIOVASCULAR: Regular rate and rhythm. No murmur appreciated. RESPIRATORY: No accessory muscle use. Crackles bilaterally. GASTROINTESTINAL: Abdomen soft, non-tender, nondistended. MUSCULOSKELETAL: No obvious deformities. No clubbing. No cyanosis. +Lower bilateral ext edema. NEUROLOGICAL: Awake and alert. No obvious cranial nerve deficits. Motor grossly within normal limits. Normal speech. PSYCHIATRIC: Appropriate mood and affect; insight and judgment normal. Data Data Last Documented VS Vital Signs Date Time Temp Pulse Resp B/P Pulse Ox O2 Delivery O2 Flow Rate FiO2 12/20/16 02:10 98.9 79 18 189/77 97 Orders Equip, Isolation Cart (12/20/16 01:59) Isolation 08,20 (12/20/16 01:59) Chest, Single Ap (12/20/16 ) MDM Medical Decision Making Medical Screen Exam Complete: Yes Emergency Medical Condition: Yes Interpretation(s) Last Impressions Chest X-Ray 12/20/16 0000 Signed Impressions: Service Date/Time: Tuesday, December 20, 2016 02:49 - CONCLUSION: Bibasilar infiltrates and small effusions are modestly improved in the interim. Nothing typical of TB. Edmond Horton MD Differential Diagnosis Tuberculosis Narrative Course 76yo F was sent here from rehab for abnormal CXR. Pt has no symptoms. CXR here showed bibasilar infiltrates and small effusions are modestly improved in the interim. Nothing typical of TB. Pt has no symptoms consistent with TB, will discharge back to rehab. Return precautions given. Diagnosis Primary Impression: Routine medical exam Patient Instructions: General Instructions Departure Forms: Tests/Procedures Additional Instructions: CXR showed nothing typical of TB and pt has no symptoms consistent with active TB. Return to the ED if symptoms worsen. Med/Other Pt SpecificInfo: No Change to Meds Disposition: 01 DISCHARGE HOME Condition: Stable Rhonda Angela DO Dec 20, 2016 03:07
--- NOTE | 2016-12-20 03:30 | RADRPT ---
EXAM DATE/TIME: 12/20/2016 02:49 [facility] COMPARISON: CHEST SINGLE AP, December 10, 2016, 17:04. INDICATIONS : Cough. Possible TB. MEDICAL HISTORY : Cardiovascular disease. SURGICAL HISTORY : Pacemaker. ENCOUNTER: Initial ACUITY: 3 days PAIN SCORE: 5/10 LOCATION: Bilateral chest FINDINGS: Bibasilar infiltrates are present, slightly improved in the interim. Small, bilateral pleural effusio ns are present. No pneumothorax. Heart size stable, within normal limits. Patient has had previous median sternotomy and CABG. No evidence of mediastinal or hilar lymphadenopathy. Right IJ double-lumen catheter with distal tip in the right atrium again noted. CONCLUSION: Bibasilar infiltrates and small effusions are modestly improved in the interim. Nothing typical of TB . Edmond Horton MD on December 20, 2016 at 3:27 Board Certified Radiologist. This report was verified electronically.
== END 2016-12-20 08:32 | disposition home or self-care (01) ==
LOC: NEPC 01:12
DX: Z03.89 Encounter for observation for other suspected diseases and conditions ruled out (principal); R91.8 Other nonspecific abnormal finding of lung field; I48.91 Unspecified atrial fibrillation; I50.9 Heart failure, unspecified; J44.9 Chronic obstructive pulmonary disease, unspecified; E11.9 Type 2 diabetes mellitus without complications; I12.9 Hypertensive chronic kidney disease with stage 1 through stage 4 chronic kidney disease, or unspecified chronic kidney disease; E78.00 Pure hypercholesterolemia, unspecified; I25.2 Old myocardial infarction; Z95.810 Presence of automatic (implantable) cardiac defibrillator; Z95.1 Presence of aortocoronary bypass graft; Z79.4 Long term (current) use of insulin
CPT/HCPCS: 71010; 99283

== ENCOUNTER 2017-03-09 12:05 | Day surgery (SDC) | payer MEDICARE ==
[2017-03-09 12:34] VITALS: BP 108/76; PULSE 52; RESP 20; TEMP 97.9; O2SAT 97
[2017-03-09] MEDS ORDERED: DOCU100C PO (12:56)
[2017-03-09] MEDS ORDERED: LANTINJ SQ ×2 (12:56)
[2017-03-09] MEDS ORDERED: DONE10TA7 PO (12:56)
[2017-03-09] MEDS ORDERED: MULT-159 PO (12:56)
[2017-03-09] MEDS ORDERED: RENATAB5 PO (12:56)
[2017-03-09] MEDS ORDERED: POTA10TA2 PO (12:56)
[2017-03-09] MEDS ORDERED: ATOR1TAB18 PO (12:56)
[2017-03-09] MEDS ORDERED: AMBI5TAB PO (12:56)
[2017-03-09] MEDS ORDERED: IPRASOL INH (12:56)
[2017-03-09] MEDS ORDERED: BROV15NE NEB (12:56)
[2017-03-09] MEDS ORDERED: METO10TA4 PO (12:56)
[2017-03-09] MEDS ORDERED: NOVONP2 SQ (12:56)
[2017-03-09] MEDS ORDERED: REME30TA PO (12:58)
[2017-03-09] MEDS ORDERED: LIDOCAINE 1%/EPINEPHrine 1:100,000 SOLN 20 ML VIAL ONE (13:47)
[2017-03-09 14:00] VITALS: BP 108/76; PULSE 50; RESP 20; TEMP 97
--- NOTE | 2017-03-09 14:02 | PD.RAD ---
Post Procedure Progress Note Pre Procedure Diagnosis: (1) CKD (chronic kidney disease) stage 3, GFR 30-59 ml/min Post Procedure Diagnosis: (1) Chronic kidney disease (CKD) Procedure Date: Mar 09, 2017 Supervising Radiologist: Beau Strickland Proceduralist/Assist: John Bates, RT(R), Angelo Borjas RT(R) Anesthesia: Local Plan of Activity Patient to Unit: ROPU Patient Condition: Good Additional Comments: removed right IJ HD cath See PACS Report for procedural detail/treatment Beau Strickland MD Mar 09, 2017 14:02
--- NOTE | 2017-03-09 14:40 | RADRPT ---
EXAM DATE/TIME: 03/09/2017 00:00 [facility] COMPARISON: No previous studies available for comparison. INDICATIONS : Patient presents with dialysis catheter that is no longer needed due to dialysis completion. MEDICAL HISTORY : COPD NSTEMI 2012 Vtach now s/p pacemaker ICD Systolic heart failure Atrial fibrillation on chronic anticoagulation Hypertension Peripheral arterial disease CKD stage III Dementia SURGICAL HISTORY : 3 vessel CABG 1998 Cataract surgery Hysterectomy Pacemaker/ICD BTL Multiple dental extractions ORIF patella 1012 ENCOUNTER: Subsequent ACUITY: 1 month PAIN SCORE: 0/10 LOCATION: N/A IMAGE SERIES: 0 TECH NOTE: Central venous catheter removed without fluoroscopy.ALE CARBALLO MR#:[id number] Ex am Dt/Desc: March 09, 2017CENTRAL VENOUS CATHETER REMOVAL, TUNNELED RIGHT PROCEDURE : 1. PermaCath removal. The risks, benefits and alternatives to the procedure were explained and verbal and written consent w as obtained. The site was prepped in sterile fashion. Full sterile technique was used, including ca p, mask, sterile gloves and gown and a large sterile sheet. Hand hygiene and 2% chlorhexidine and/or betadine/alcohol prep was utilized per protocol for cutaneous antisepsis. The skin and subcutaneous tissues were infiltrated with local anesthetic solution. The tract was anesthetized with 1% Lidocaine using. The Permcath was dissected from the subcutaneous tissues and easily removed in one piece. Manual pressure was applied to the venotomy site until hem ostasis was obtained. Sterile dressing was applied. The patient tolerated the procedure well and there were no complications. CONCLUSION: Uncomplicated Permcath removal. Beau Strickland MD on March 09, 2017 at 14:38 Board Certified Radiologist. This report was verified electronically.
== END 2017-03-09 15:00 | disposition home or self-care (01) ==
LOC: HROP 12:05 → HRIP 12:07 → HROP 15:00
PROVIDERS: ATTEND Internal Medicine Nephrology
DX: Z49.01 Encounter for fitting and adjustment of extracorporeal dialysis catheter (principal); I13.0 Hypertensive heart and chronic kidney disease with heart failure and stage 1 through stage 4 chronic kidney disease, or unspecified chronic kidney disease; I50.20 Unspecified systolic (congestive) heart failure; N18.3 Chronic kidney disease, stage 3 (moderate); J44.9 Chronic obstructive pulmonary disease, unspecified; I25.2 Old myocardial infarction; I73.9 Peripheral vascular disease, unspecified; I48.91 Unspecified atrial fibrillation; Z79.01 Long term (current) use of anticoagulants; Z95.1 Presence of aortocoronary bypass graft; Z95.0 Presence of cardiac pacemaker
CPT/HCPCS: 36589